=== PATIENT | female | born 1995 | race Caucasian/White ===

== ENCOUNTER 2016-08-30 13:49 | Emergency (ER) | payer SELFPAY ==
[~2016-08-30] VITALS: Ht 170.2 cm; Wt 77.1 kg
[~2016-08-30 13:49] MED LIST: ACYC400T PO; BUPR150T4 PO; CEPH-507 PO; CEPH500C PO; CIPR500T78 PO; DICY20TA57 PO; Depo Provera; METH54TA9 PO; METR500T PO; NAPR275T51 PO; NAPR550T PO; NITR-65 PO; ONDA-42 SL; ONDA8TAB13 PO; ONDAN4ODT PO; PHEN100T17 PO; PHEN200T27 PO; POLY119P PO; PRM25T PO; SULF1TAB38 PO; TRAM50TA2 PO; [UNRECOGNIZED DRUG - OTHER] IM; birth control patch
--- OUTSIDE RECORDS SUMMARY | 2016-08-30 13:55 | XMS REPORT ---
Author Author GARY RENO [facility] e[employer] Address Unknown Phone Unavailable Care Team Providers Care Edging Machine Setter Name Role Phone GARY RENO CP Unavailable Allergies No Known Allergies Problems Problem Type Condition Code Onset Dates Condition Status Problem Nonspecific abdominal pain R10.9 Active Problem Major depressive disorder, single episode F32.9 Active Problem PCOS (polycystic ovarian syndrome) E28.2 Active Problem IBS (irritable bowel syndrome) K58.9 Active Problem Herpes simplex type 2 infection B00.9 Active Problem History of PID Z87.42 Active Problem Hordeolum external H00.019 Active Medications No Known Medications Results No Known Results Summary Purpose eClinicalWorks Submission
[2016-08-30 14:12] VITALS: BP 133/69
== END 2016-08-30 15:39 | disposition left against medical advice (07) ==
LOC: EDUNIT# 13:49 → ER 13:51
DX: R11.0 Nausea (principal); Z53.21 Procedure and treatment not carried out due to patient leaving prior to being seen by health care provider
CPT/HCPCS: 99281

== ENCOUNTER 2016-11-29 23:51 | Emergency (ER) | payer SELFPAY ==
[~2016-11-29] VITALS: Ht 175.3 cm; Wt 80.3 kg
--- NOTE | 2016-11-30 00:10 | ED Lower Extremity ---
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 PT DID NOT SEEK CARE UNTIL TODAY STATES SHE HAD TO LEAVE WORK TONIGHT DUE TO PAIN HAS NOT TAKEN ANYTHING FOR PAIN PT STATES SHE HAS HAD PROBLEMS WITH THIS KNEE HURTING IF SHE STANDS TOO LONG, OR SOMETIMES IT GIVES OUT--ONGOING FOR YEARS PCP: JAYCE-MEI Allergies and Home Medications Allergies Coded Allergies: No Known Drug Allergies (Unverified , 08/30/11) Home Medications Naproxen 500 Mg Tablet, 500 MG PO BID, #20 Prescribed by: CHAO PERDUE on 11/30/16 0022 Constitutional: no symptoms reported Musculoskeletal: see HPI Skin: no symptoms reported Psychiatric/Neurological: No Symptoms Reported Past Vitsmkv-Rlcfmu-Bxnlur Hx Patient Social History Alcohol Use: Occasionally Uses Recreational Drug Use: No Smoking Status: Current Everyday Smoker Type Used: Cigarettes Recent Foreign Travel: No Contact w/Someone Who Travel: No Recent Hopitalizations: No Immunizations Up To Date Date of Influenza Vaccine: Mar 30, 2013 Seasonal Allergies Seasonal Allergies: No Surgeries HX Surgeries: Yes Surgeries: Abdominal, Adenoidectomy, Tonsillectomy Respiratory Hx Respiratory Disorders: No Cardiovascular Hx Cardiac Disorders: No Neurological Hx Neurological Disorders: No Reproductive System Hx Reproductive Disorders: No Sexually Transmitted Disease: Yes (Trichomonas and Chlamydia) HIV/AIDS: No Female Reproductive Disorders: Menstrual Problems, Ovarian Cyst Genitourinary Hx Genitourinary Disorders: No Gastrointestinal Hx Gastrointestinal Disorders: No Musculoskeletal Hx Musculoskeletal Disorders: No Endocrine Hx Endocrine Disorders: No HEENT HX ENT Disorders: No Cancer Hx Cancer: No Psychosocial Hx Psychiatric Problems: Yes Behavioral Health Disorders: Anxiety, Bipolar, Depression Integumentary HX Skin/Integumentary Disorder: No Blood Transfusions Hx Blood Disorders: No Adverse Reaction to a Blood Tr: No Family Medical History Significant Family History: No Pertinent Family Hx Physical Exam Vital Signs Vital Sign - Last 12Hours 11/29/16 23:58 Temp 98.1 Pulse 84 Resp 20 B/P (MAP) 115/65 Pulse Ox 98 O2 Delivery Room Air Capillary Refill : General Appearance: WD/WN, no apparent distress Hips: bilateral hip normal inspection Legs: bilateral leg normal inspection Knees: left knee normal inspection, right knee bone tenderness, right knee soft tissue tenderness, right knee other (TENDERNESS TO MEDIAL/ INFERIOR ASPECT OF RIGHT KNEE. NO LIGAMENT LAXITY. NO CREPITANCE OR CLICKING/ POPPING. NO SWELLING OR BRUISING OR EXTERNAL EVIDENCE OF TRAUMA. 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 II-XII nml as tested, no motor/sensory deficits, alert, normal mood/affect, oriented x 3 Skin: normal color, warm/dry Progress/Results/Core Measures Results/Orders My Orders Orders - CHAO PERDUE DO Knee, Right, 3 Views (11/30/16 00:04) Rx-Naproxen (Rx-Naprosyn) (11/30/16 00:23) Morgan Bandage (11/30/16 00:23) Vital Signs/I&O Vital Sign - Last 12Hours 11/29/16 23:58 Temp 98.1 Pulse 84 Resp 20 B/P (MAP) 115/65 Pulse Ox 98 O2 Delivery Room Air Diagnostic Imaging Comments XRAYS RIGHT KNEE--NO ACUTE PROCESS, PENDING RADIOLOGIST REVIEW Reviewed: Reviewed by Me Departure Impression Impression: Primary Impression: Right knee pain Disposition: 01 HOME, SELF-CARE Condition: Stable Departure-Patient Inst. Referrals: [facility] (PCP/Family) Primary Care Physician Patient Instructions: Knee Pain (DC) Add. Discharge Instructions: MORGAN WRAP TO KNEE NEEDED FOR COMFORT ALTERNATE ICE AND HEAT TO AREA AT 29 MINUTE INTERVALS FOLLOW UP WITH [facility] IN 2-3 DAYS FOR FURTHER CARE All discharge instructions reviewed with patient and/or family. Voiced understanding. Scripts Naproxen (Naproxen) 500 Mg Tablet 500 MG PO BID, #20 TAB Prov: CHAO PERDUE DO 11/30/16 Work/School Note: Work Release Form Date Seen in the Emergency Department: Nov 30, 2016 Restrictions: Need Release from Doctor CHAO PERDUE DO Nov 30, 2016 00:10
[2016-11-30] MEDS ORDERED: NAPR500T3 PO (00:22)
[2016-11-30] MEDS ORDERED: RX-NAPROXEN (NAPROSYN) 250 MG TAB PPK#4 PO ONE (00:43)
[2016-11-30 00:46] VITALS: BP 0/0
[2016-11-30] MEDS: RX-NAPROXEN (NAPROSYN) 250 MG TAB PPK#4 PO STA (00:46)
--- NOTE | 2016-11-30 07:29 | Diagnostic Imaging Report ---
EXAMINATION: 3 views of the right knee. INDICATION: Fall. FINDINGS: No fracture, dislocation or radiopaque foreign body. No suprapatellar effusion seen. IMPRESSION: Unremarkable exam. Dictated by: Dictated on workstation # [id number]
== END 2016-11-30 00:46 | disposition home or self-care (01) ==
LOC: EDUNIT# 23:51 → ER 23:55
DX: M25.561 Pain in right knee (principal); F17.210 Nicotine dependence, cigarettes, uncomplicated
CPT/HCPCS: 73562; 99283

== ENCOUNTER 2017-08-13 01:15 | Emergency (ER) | payer SELFPAY ==
[~2017-08-13 01:15] MED LIST changes: +NAPR500T4 PO
--- OUTSIDE RECORDS SUMMARY | 2017-08-15 13:13 | XMS REPORT ---
Author Author JOSHUA STACK [facility] Address Unknown Care Team Providers Care Photo Producer Name Role Phone JOSHUA STACK Unavailable PROBLEMS Type Condition ICD9-CM Code BEU25-UW Code Onset Dates Condition Status SNOMED Code Problem Routine health maintenance Z00.00 Active 467339951 Problem Tobacco abuse Z72.0 Active 66690330 Problem Alcohol abuse F10.10 Active 82951053 Problem Anxiety F41.9 Active 50970889 Problem Depressive disorder, not elsewhere classified F32.9 Active 08941369 Problem Absence of menstruation N91.2 Active 93100601 Problem Tobacco abuse counseling Z71.6 Active 469724103 Problem Generalized anxiety disorder F41.1 Active 81624788 Problem 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 Unknown Non Drug Allergy May, Unknown SOCIAL HISTORY No smoking Hx information available PLAN OF CARE Activity Details Follow Up prn Reason:HYGIENE VITAL SIGNS Height 66 in 2016-06-19 Blood pressure systolic 111 mmHg 2016-06-19 Blood pressure diastolic 62 mmHg 2016-06-19 MEDICATIONS No Known Medications RESULTS No Results PROCEDURES Procedure Date Ordered Related Diagnosis Body Site LTD ORAL EVALUATION - PROBLEM FOCUS Jun 19, 2016 INTRAORL-PERIAPICAL 1 FILM [id number] Jun 19, 2016 EXTRAC ERUPTED TOOTH/EXPOSED ROOT Jun 19, 2016 BITEWING - SINGLE FILM Jun 19, 2016 IMMUNIZATIONS No Known Immunizations
--- OUTSIDE RECORDS SUMMARY | 2017-08-15 13:14 | XMS REPORT ---
Author Author NATHALIA MORRIS [facility] Address [address] [place] [address] Care Team Providers Care Professor Of Criminal Justice Name Role Phone NATHALIA MORRIS Unavailable PROBLEMS Type Condition ICD9-CM Code ADT02-KS Code Onset Dates Condition Status SNOMED Code Problem Routine health maintenance Z00.00 Active 752959873 Problem Tobacco abuse Z72.0 Active 77948426 Problem Alcohol abuse F10.10 Active 16098216 Problem Anxiety F41.9 Active 72719593 Problem Depressive disorder, not elsewhere classified F32.9 Active 78091180 Problem Absence of menstruation N91.2 Active 24748121 Problem Tobacco abuse counseling Z71.6 Active 272496656 Problem Generalized anxiety disorder F41.1 Active 20492604 Problem 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 95670946 Problem Nonspecific abdominal pain R10.9 Active 477506451 Problem IBS (irritable bowel syndrome) K58.9 Active 30608639 Problem Herpes simplex type 2 infection B00.9 Active 229564356 Problem History of PID Z87.42 Active 952781141 Problem Hordeolum external H00.019 Active 3233612 Problem Major depressive disorder, single episode F32.9 Active 38610530 Problem Late menses N91.0 Active 07018811 Problem PCOS (polycystic ovarian syndrome) E28.2 Active 16073242 Problem History of drug dependence/abuse F19.21 Active 4022874 ALLERGIES No Information SOCIAL HISTORY Never Assessed PLAN OF CARE Activity Details Follow Up Next available Reason: VITAL SIGNS MEDICATIONS Unknown Medications RESULTS No Results PROCEDURES No Known procedures IMMUNIZATIONS No Known Immunizations MEDICAL (GENERAL) HISTORY Type Description Date Medical History Attention-deficit hyperactivity disorder Medical History Chlamydial infections Medical History Trichomoniasis Medical History depression Medical History bipolar disorder Medical History Anxiety disorder Medical History Methamphetamine Abuse Medical History Marijuana Dependence Surgical History Myringotomy with ventilating tube insertion Surgical History Tonsillectomy Surgical History Adenoidectomy Hospitalization History Surgery
--- OUTSIDE RECORDS SUMMARY | 2017-08-15 13:14 | XMS REPORT ---
Author Author NATHALIA MORRIS [facility] Address [address] [place] [address] Care Team Providers Care Chief Nurse Name Role Phone NATHALIA MORRIS Unavailable PROBLEMS Type Condition ICD9-CM Code VJE23-AI Code Onset Dates Condition Status SNOMED Code Problem Routine health maintenance Z00.00 Active 371397249 Problem Tobacco abuse Z72.0 Active 90250952 Problem Alcohol abuse F10.10 Active 51045772 Problem Anxiety F41.9 Active 96108446 Problem Depressive disorder, not elsewhere classified F32.9 Active 80414302 Problem Absence of menstruation N91.2 Active 12169695 Problem Tobacco abuse counseling Z71.6 Active 722466475 Problem Generalized anxiety disorder F41.1 Active 80884308 Problem 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 66819689 Problem Nonspecific abdominal pain R10.9 Active 557380106 Problem IBS (irritable bowel syndrome) K58.9 Active 46598884 Problem Herpes simplex type 2 infection B00.9 Active 521423362 Problem History of PID Z87.42 Active 708667459 Problem Hordeolum external H00.019 Active 6996269 Problem Major depressive disorder, single episode F32.9 Active 15869248 Problem Late menses N91.0 Active 31708376 Problem PCOS (polycystic ovarian syndrome) E28.2 Active 35370316 Problem History of drug dependence/abuse F19.21 Active 9428596 ALLERGIES No Known Allergies SOCIAL HISTORY No smoking Hx information available PLAN OF CARE Activity Details Follow Up 2 Weeks Reason:Depression, anxiety, drug use VITAL SIGNS MEDICATIONS No Known Medications RESULTS No Results PROCEDURES Procedure Date Ordered Related Diagnosis Body Site Psych diagnostic evaluation, new patient Jul 19, 2016 IMMUNIZATIONS No Known Immunizations
--- OUTSIDE RECORDS SUMMARY | 2017-08-15 13:14 | XMS REPORT ---
Author Author JHOANA KRAUS [facility] Address [address] [place] [address] Care Team Providers Care Aircraft Maintenance Manager Name Role Phone JHOANA KRAUS Unavailable PROBLEMS Type Condition ICD9-CM Code EUY23-SY Code Onset Dates Condition Status SNOMED Code Problem Routine health maintenance Z00.00 Active 349182346 Problem Tobacco abuse Z72.0 Active 69262308 Problem Alcohol abuse F10.10 Active 62530588 Problem Anxiety F41.9 Active 34155763 Problem Depressive disorder, not elsewhere classified F32.9 Active 24758374 Problem Absence of menstruation N91.2 Active 60609981 Problem Tobacco abuse counseling Z71.6 Active 610621618 Problem Generalized anxiety disorder F41.1 Active 70368076 Problem 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 48940086 Problem Nonspecific abdominal pain R10.9 Active 813512462 Problem IBS (irritable bowel syndrome) K58.9 Active 39859244 Problem Herpes simplex type 2 infection B00.9 Active 537510727 Problem History of PID Z87.42 Active 034186995 Problem Hordeolum external H00.019 Active 4272703 Problem Major depressive disorder, single episode F32.9 Active 04947656 Problem Late menses N91.0 Active 91348982 Problem PCOS (polycystic ovarian syndrome) E28.2 Active 02193741 Problem History of drug dependence/abuse F19.21 Active 1626971 ALLERGIES No Known Allergies SOCIAL HISTORY Never Assessed PLAN OF CARE Activity Details Follow Up Regular appt Reason: VITAL SIGNS Height 66 in 2016-11-06 Weight 174 lbs 2016-11-06 Temperature 98.0 degrees Fahrenheit 2016-11-06 Heart Rate 80 bpm 2016-11-06 Respiratory Rate 20 2016-11-06 BMI 28.08 kg/m2 2016-11-06 Blood pressure systolic 122 mmHg 2016-11-06 Blood pressure diastolic 70 mmHg 2016-11-06 MEDICATIONS Medication Instructions Dosage Frequency Start Date End Date Duration Status Bactrim DS 800-160 MG Orally Twice a day 1 tablet 12h October,October 07 days Active RESULTS Name Result Date Reference Range TEST, URINE (IN HOUSE) RESULTS Negative Lot # [id number] Control + Exp date 01/28/2018 UA LONG DIP (IN HOUSE) Lot # [id number] Exp date 09/28/2017 Clarity Cloudy Color yellow Odor none GLU Negative ARCHANA Negative KET Negative SG 1.025 BLO Negative pH 7.0 Protein Negative URO 0.2 NIT POSITIVE YUE 1+ Lot # Exp date PROCEDURES Procedure Date Ordered Result Body Site URINALYSIS, AUTO, W/O SCOPE November 06, 2016 URINE TEST November 06, 2016 IMMUNIZATIONS No Known Immunizations MEDICAL (GENERAL) HISTORY [...]
--- OUTSIDE RECORDS SUMMARY | 2017-08-15 13:14 | XMS REPORT ---
Author Author NACHOYOBANY Organization [facility] Address [address] [place] [address] Care Team Providers Care Inspector Salvage Name Role Phone NACHOSHIKHAYOBANY Unavailable PROBLEMS Type Condition ICD9-CM Code QYB30-WX Code Onset Dates Condition Status SNOMED Code Problem Routine health maintenance Z00.00 Active 492916521 Problem Tobacco abuse Z72.0 Active 13864137 Problem Alcohol abuse F10.10 Active 52431998 Problem Anxiety F41.9 Active 43330628 Problem Depressive disorder, not elsewhere classified F32.9 Active 21326549 Problem Absence of menstruation N91.2 Active 99734198 Problem Tobacco abuse counseling Z71.6 Active 827551202 Problem Generalized anxiety disorder F41.1 Active 10596033 Problem 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 20737748 Problem Nonspecific abdominal pain R10.9 Active 997705598 Problem IBS (irritable bowel syndrome) K58.9 Active 66185678 Problem Herpes simplex type 2 infection B00.9 Active 027799986 Problem History of PID Z87.42 Active 283132198 Problem Hordeolum external H00.019 Active 4340771 Problem Major depressive disorder, single episode F32.9 Active 20616491 Problem Late menses N91.0 Active 76857964 Problem PCOS (polycystic ovarian syndrome) E28.2 Active 35359811 Problem History of drug dependence/abuse F19.21 Active 5938664 ALLERGIES No Known Allergies SOCIAL HISTORY Never Assessed PLAN OF CARE Activity Details Follow Up prn Reason: VITAL SIGNS Height 66 in 2016-08-31 Weight 168.3 lbs 2016-08-31 Temperature 98 degrees Fahrenheit 2016-08-31 Heart Rate 80 bpm 2016-08-31 Respiratory Rate 16 2016-08-31 BMI 27.16 kg/m2 2016-08-31 Blood pressure systolic 110 mmHg 2016-08-31 Blood pressure diastolic 60 mmHg 2016-08-31 MEDICATIONS Medication Instructions Dosage Frequency Start Date End Date Duration Status Diflucan 150 MG Orally one time 1 tablet Aug, 1 dose Active Zantac 150 MG Orally Once a day 1 tablet at bedtime 24h Active RESULTS Name Result Date Reference Range TEST, URINE (IN HOUSE) 2016-08-31 RESULTS negative Lot # [id number] Control + Exp date 09/2017 UA LONG DIP (IN HOUSE) 2016-08-31 Lot # [id number] Exp date 07/2017 Clarity clear Color dark yellow Odor no GLU neg ARCHANA neg KET trace SG 1.025 BLO neg pH 5.5 Protein trace URO 0.2 NIT neg YUE trace Lot # Exp date CULTURE, GENITAL 2016-08-31 Genital Culture, Routine Final report Result 1 GC/CHLAM PROBE (STATE) 2016-08-31 CHLAMYDIA negative GC negative PROCEDURES Procedure Date Ordered Result Body Site URINALYSIS, AUTO, W/O SCOPE August 31, 2016 URINE TEST August 31, 2016 LOPES VAG, DNA, DIR PROBE August 31, 2016 TRICHOMONAS ASSAY W/OPTIC August 31, 2016 CULTURE, BACTERIA, OTHER August 31, 2016 No Charge August 31, 2016 IMMUNIZATIONS No Known Immunizations MEDICAL (GENERAL) [...]
--- OUTSIDE RECORDS SUMMARY | 2017-08-15 13:14 | XMS REPORT ---
Author Author RHONDA COLEMAN Organization [facility] Address [address] [place] [address] Care Team Providers Care Driver License Reviewing Officer Name Role Phone RHONDA COLEMAN Unavailable PROBLEMS Type Condition ICD9-CM Code CTG35-RL Code Onset Dates Condition Status SNOMED Code Problem Routine health maintenance Z00.00 Active 155829164 Problem Tobacco abuse Z72.0 Active 73556623 Problem Alcohol abuse F10.10 Active 71619287 Problem Anxiety F41.9 Active 87323375 Problem Depressive disorder, not elsewhere classified F32.9 Active 91845799 Problem Absence of menstruation N91.2 Active 68835657 Problem Tobacco abuse counseling Z71.6 Active 773575815 Problem Generalized anxiety disorder F41.1 Active 34775309 Problem 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 19035409 Problem Nonspecific abdominal pain R10.9 Active 736886578 Problem IBS (irritable bowel syndrome) K58.9 Active 15888973 Problem Herpes simplex type 2 infection B00.9 Active 688455219 Problem History of PID Z87.42 Active 155965318 Problem Hordeolum external H00.019 Active 4184453 Problem Major depressive disorder, single episode F32.9 Active 14160424 Problem Late menses N91.0 Active 17361294 Problem PCOS (polycystic ovarian syndrome) E28.2 Active 07788703 Problem History of drug dependence/abuse F19.21 Active 9292231 ALLERGIES Unknown Allergies SOCIAL HISTORY No smoking Hx information available PLAN OF CARE VITAL SIGNS MEDICATIONS Unknown Medications RESULTS No Results PROCEDURES No Known procedures IMMUNIZATIONS No Known Immunizations
--- OUTSIDE RECORDS SUMMARY | 2017-08-15 13:17 | XMS REPORT | Continuity of Care Document ---
Author Author Formerly [facility] Address Unknown Phone Unavailable Allergies Active Description Code Type Severity Reaction Onset Reported/Identified Relationship to Patient Clinical Status Yes No Known Drug Allergies [id number] Drug Allergy Unknown N/A 08/30/2011 Medications There is no data. Problems Date Dx Coded Attending Type Code Diagnosis Diagnosed By 02/23/2008 V03.89 Meningococcal , Other Specified Single Bacterial Disease 02/23/2008 V05.3 Hepatitis Viral/all 02/23/2008 V06.5 Dt, Tetanus- diphtheria [td] 02/23/2008 V20.2 WELL CHILD, ROUTINE 02/23/2008 V58.69 MEDICATION HIGH RISK 02/23/2008 V03.89 Meningococcal , Other Specified Single Bacterial Disease 02/23/2008 V05.3 Hepatitis Viral/all 02/23/2008 V06.5 Dt, Tetanus- diphtheria [td] 02/23/2008 V20.2 WELL CHILD, ROUTINE 02/23/2008 V58.69 MEDICATION HIGH RISK 02/23/2008 V03.89 Meningococcal , Other Specified Single Bacterial Disease 02/23/2008 V05.3 Hepatitis Viral/all 02/23/2008 V06.5 Dt, Tetanus- diphtheria [td] 02/23/2008 V20.2 WELL CHILD, ROUTINE 02/23/2008 V58.69 MEDICATION HIGH RISK 02/23/2008 V03.89 Meningococcal , Other Specified Single Bacterial Disease 02/23/2008 V05.3 Hepatitis Viral/all 02/23/2008 V06.5 Dt, Tetanus- diphtheria [td] 02/23/2008 V20.2 WELL CHILD, ROUTINE 02/23/2008 V58.69 MEDICATION HIGH RISK 02/23/2008 GARY RENO MD V03.89 Meningococcal, Other Specified Single Bacterial Disease 02/23/2008 GARY RENO MD V05.3 Hepatitis Viral/all 02/23/2008 GARY RENO MD V06.5 Dt, Tetanus-diphtheria [td] 02/23/2008 SHADIA BECKER, GARY V20.2 WELL CHILD, ROUTINE 02/23/2008 SHADIA BECKER, GARY V58.69 MEDICATION HIGH RISK 02/23/2008 V03.89 Meningococcal , Other Specified Single Bacterial Disease 02/23/2008 V05.3 Hepatitis Viral/all 02/23/2008 V06.5 Dt, Tetanus- diphtheria [td] 02/23/2008 V20.2 WELL CHILD, ROUTINE 02/23/2008 V58.69 MEDICATION HIGH RISK 02/23/2008 LUEVANO DO MIKE K V03.89 Meningococcal, Other Specified Single Bacterial Disease 02/23/2008 LUEVANO DO MIKE K V05.3 Hepatitis Viral/all 02/23/2008 LUEVANO DO MIKE K V06.5 Dt, Tetanus-diphtheria [td] 02/23/2008 LUEVANO DO MIKE K V20.2 WELL CHILD, ROUTINE 02/23/2008 LUEVANO SHAWN GARSIAA K V58.69 MEDICATION HIGH RISK 02/23/2008 V03.89 Meningococcal , Other Specified Single Bacterial Disease 02/23/2008 V05.3 Hepatitis Viral/all 02/23/2008 V06.5 Dt, Tetanus- diphtheria [td] 02/23/2008 V20.2 WELL CHILD, ROUTINE 02/23/2008 V58.69 MEDICATION HIGH RISK 02/23/2008 V03.89 Meningococcal , Other Specified Single Bacterial Disease 02/23/2008 V05.3 Hepatitis Viral/all 02/23/2008 V06.5 Dt, Tetanus- diphtheria [td] 02/23/2008 V20.2 WELL CHILD, ROUTINE 02/23/2008 V58.69 MEDICATION HIGH RISK 02/23/2008 V03.89 Meningococcal , Other Specified Single Bacterial Disease 02/23/2008 V05.3 Hepatitis Viral/all 02/23/2008 V06.5 Dt, Tetanus- diphtheria [td] 02/23/2008 V20.2 WELL CHILD, ROUTINE 02/23/2008 V58.69 MEDICATION HIGH RISK 02/23/2008 SHADIA BECKER, GARY V03.89 Meningococcal, Other Specified Single Bacterial Disease 02/23/2008 SHADIA BECKER, GARY V05.3 Hepatitis Viral/all 02/23/2008 SHADIA BECKER, GARY V06.5 Dt, Tetanus-diphtheria [td] 02/23/2008 SHADIA BECKER, GARY V20.2 WELL CHILD, ROUTINE 02/23/2008 SHADIA BECKER, GARY V58.69 MEDICATION HIGH RISK 02/23/2008 REFUGIO MEDINA, LIDIA A V03.89 Meningococcal, Other Specified Single Bacterial Disease 02/23/2008 REFUGIO COMMERCIAL LOAN ANALYST, LIDIA A V05.3 Hepatitis Viral/all 02/23/2008 REFUGIO APRN, LIDIA A V06.5 Dt, Tetanus-diphtheria [td] 02/23/2008 REFUGIO COMMERCIAL LOAN ANALYST, LIDIA A V20.2 WELL CHILD, ROUTINE 02/23/2008 REFUGIO APRN, LIDIA A V58.69 MEDICATION HIGH RISK 02/23/2008 REFUGIO APRN, LIDIA A V03.89 Meningococcal, Other Specified Single Bacterial Disease 02/23/2008 REFUGIO APRN, LIDIA A V05.3 Hepatitis Viral/all 02/23/2008 REFUGIO MEDINA, LIDIA A V06.5 Dt, Tetanus-diphtheria [td] 02/23/2008 REFUGIO APRN, LIDIA A V20.2 WELL CHILD, ROUTINE 02/23/2008 REFUGIO APRN, LIDIA A V58.69 MEDICATION HIGH RISK 02/23/2008 REFUGIO MEDINA, LIDIA A V03.89 Meningococcal, Other Specified Single Bacterial Disease 02/23/2008 REFUGIO MEDINA, LIDIA A V05.3 Hepatitis Viral/all 02/23/2008 REFUGIO MEDINA, LIDIA A V06.5 Dt, Tetanus-diphtheria [td] 02/23/2008 REFUGIO APRN, LIDIA A V20.2 WELL CHILD, ROUTINE 02/23/2008 REFUGIO APRN, LIDIA A V58.69 MEDICATION HIGH RISK 02/23/2008 REFUGIO APRN, LIDIA A V03.89 Meningococcal, Other Specified Single Bacterial Disease 02/23/2008 REFUGIO APRN, LIDIA A V05.3 Hepatitis Viral/all 02/23/2008 REFUGIO APRN, LIDIA A V06.5 Dt, Tetanus-diphtheria [td] 02/23/2008 REFUGIO APRN, LIDIA A V20.2 WELL CHILD, ROUTINE 02/23/2008 REFUGIO COMMERCIAL LOAN ANALYST, LIDIA A V58.69 MEDICATION HIGH RISK 02/23/2008 REFUGIO COMMERCIAL LOAN ANALYST, LIDIA A V03.89 Meningococcal, Other Specified Single Bacterial Disease 02/23/2008 REFUGIO COMMERCIAL LOAN ANALYST, LIDIA A V05.3 Hepatitis Viral/all 02/23/2008 REFUGIO COMMERCIAL LOAN ANALYST, LIDIA A V06.5 Dt, Tetanus-diphtheria [td] 02/23/2008 REFUGIO COMMERCIAL LOAN ANALYST, LIDIA A V20.2 WELL CHILD, ROUTINE 02/23/2008 REFUGIO COMMERCIAL LOAN ANALYST, LIDIA A V58.69 MEDICATION HIGH RISK 02/23/2008 REFUGIO COMMERCIAL LOAN ANALYST, LIDIA A V03.89 Meningococcal, Other Specified Single Bacterial Disease 02/23/2008 REFUGIO COMMERCIAL LOAN ANALYST, LIDIA A V05.3 Hepatitis Viral/all 02/23/2008 REFUGIO COMMERCIAL LOAN ANALYST, LIDIA A V06.5 Dt, Tetanus-diphtheria [td] 02/23/2008 REFUGIO COMMERCIAL LOAN ANALYST, LIDIA A V20.2 WELL CHILD, ROUTINE 02/23/2008 REFUGIO COMMERCIAL LOAN ANALYST, LIDIA A V58.69 MEDICATION HIGH RISK 02/23/2008 AZAEL BECKER, RAYMUNDO V03.89 Meningococcal, Other Specified Single Bacterial Disease 02/23/2008 AZAEL BECKER, RAYMUNDO V05.3 Hepatitis Viral/all 02/23/2008 AZAEL BECKER, RAYMUNDO V06.5 Dt, Tetanus-diphtheria [td] 02/23/2008 AZAEL BECKER, RAYMUNDO V20.2 WELL CHILD, ROUTINE 02/23/2008 AZAEL BECKER, RAYMUNDO V58.69 MEDICATION HIGH RISK 02/23/2008 SHAWN LUEVANO DOA Vero V03.89 Meningococcal, Other Specified Single Bacterial Disease 02/23/2008 MIKE LUEVANO DO K V05.3 Hepatitis Viral/all 02/23/2008 SHAWN LUEVANO DOA Vero V06.5 Dt, Tetanus-diphtheria [td] 02/23/2008 MIKE LUEVANO DO V20.2 WELL CHILD, ROUTINE 02/23/2008 SHAWN LUEVANO DOA K V58.69 MEDICATION HIGH RISK 02/23/2008 REFUGIO COMMERCIAL LOAN ANALYST, LIDIA A V03.89 Meningococcal, Other Specified Single Bacterial Disease 02/23/2008 REFUGIO COMMERCIAL LOAN ANALYST, LIDIA A V05.3 Hepatitis Viral/all 02/23/2008 REFUGIO COMMERCIAL LOAN ANALYST, LIDIA A V06.5 Dt, Tetanus-diphtheria [td] 02/23/2008 REFUGIO COMMERCIAL LOAN ANALYST, LIDIA A V20.2 WELL CHILD, ROUTINE 02/23/2008 REFUGIO TOAdy LIDIA A V58.69 MEDICATION HIGH RISK 02/23/2008 LUEVANO DO MIKE K V03.89 Meningococcal, Other Specified Single Bacterial Disease 02/23/2008 LUEVANO DO MIKE K V05.3 Hepatitis Viral/all 02/23/2008 LUEVANO DO MIKE K V06.5 Dt, Tetanus-diphtheria [td] 02/23/2008 LUEVANO DO MIKE K V20.2 WELL CHILD, ROUTINE 02/23/2008 SHAWN LUEVANO DOA K V58.69 MEDICATION HIGH RISK 02/23/2008 LUEVANO DO MIKE K V03.89 Meningococcal, Other Specified Single Bacterial Disease 02/23/2008 LUEVANO DO MIKE K V05.3 Hepatitis Viral/all 02/23/2008 LUEVANO DO MIKE K V06.5 Dt, Tetanus-diphtheria [td] 02/23/2008 LUEVANO SHAWN GARSIAA K V20.2 WELL CHILD, ROUTINE 02/23/2008 LUEVANO DO MIKE K V58.69 MEDICATION HIGH RISK 02/23/2008 REFUGIO TON, LIDIA A V03.89 Meningococcal, Other Specified Single Bacterial Disease 02/23/2008 REFUGIO COMMERCIAL LOAN ANALYST, LIDIA A V05.3 Hepatitis Viral/all 02/23/2008 REFUGIO COMMERCIAL LOAN ANALYST, LIDIA A V06.5 Dt, Tetanus-diphtheria [td] 02/23/2008 REFUGIO COMMERCIAL LOAN ANALYST, LIDIA A V20.2 WELL CHILD, ROUTINE 02/23/2008 REFUGIO TON, LIDIA A V58.69 MEDICATION HIGH RISK 04/30/2008 780.60 Fever, Unspecified 04/30/2008 780.79 Malaise And Fatigue 04/30/2008 780.60 Fever, Unspecified 04/30/2008 780.79 Malaise And Fatigue 04/30/2008 780.60 Fever, Unspecified 04/30/2008 780.79 Malaise And Fatigue 04/30/2008 780.60 Fever, Unspecified 04/30/2008 780.79 Malaise And Fatigue 04/30/2008 GARY RENO MD 780.60 Fever, Unspecified 04/30/2008 GARY RENO MD 780.79 Malaise And Fatigue 04/30/2008 780.60 Fever, Unspecified 04/30/2008 780.79 Malaise And Fatigue 04/30/2008 LUEVANO DO MIKE K 780.60 Fever, Unspecified 04/30/2008 LUEVANO DO, MIKE K 780.79 Malaise And Fatigue 04/30/2008 780.60 Fever, Unspecified 04/30/2008 780.79 Malaise And Fatigue 04/30/2008 780.60 Fever, Unspecified 04/30/2008 780.79 Malaise And Fatigue 04/30/2008 780.60 Fever, Unspecified 04/30/2008 780.79 Malaise And Fatigue 04/30/2008 GARY RENO MD 780.60 Fever, Unspecified 04/30/2008 GARY RENO MD 780.79 Malaise And Fatigue 04/30/2008 REFGUIO COMMERCIAL LOAN ANALYST, LIDIA A 780.60 Fever, Unspecified 04/30/2008 REFUGIO COMMERCIAL LOAN ANALYST, LIDIA A 780.79 Malaise And Fatigue 04/30/2008 REFUGIO COMMERCIAL LOAN ANALYST, LIDIA A 780.60 Fever, Unspecified 04/30/2008 REFUGIO COMMERCIAL LOAN ANALYST, LIDIA A 780.79 Malaise And Fatigue 04/30/2008 REFUGIO COMMERCIAL LOAN ANALYST, LIDIA A 780.60 Fever, Unspecified 04/30/2008 REFUGIO COMMERCIAL LOAN ANALYST, LIDIA A 780.79 Malaise And Fatigue 04/30/2008 REFUGIO COMMERCIAL LOAN ANALYST, LIDIA A 780.60 Fever, Unspecified 04/30/2008 REFUGIO COMMERCIAL LOAN ANALYST, LIDIA A 780.79 Malaise And Fatigue 04/30/2008 REFUGIO COMMERCIAL LOAN ANALYST, LIDIA A 780.60 Fever, Unspecified 04/30/2008 REFUGIO COMMERCIAL LOAN ANALYST, LIDIA A 780.79 Malaise And Fatigue 04/30/2008 REFUGIO COMMERCIAL LOAN ANALYST, LIDIA A 780.60 Fever, Unspecified 04/30/2008 REFUGIO COMMERCIAL LOAN ANALYST, LIDIA A 780.79 Malaise And Fatigue 04/30/2008 RAYMUNDO ADDISON MD 780.60 Fever, Unspecified 04/30/2008 AZAEL MD, RAYMUNDO 780.79 Malaise And Fatigue 04/30/2008 LUEVANO DO, MIKE K 780.60 Fever, Unspecified 04/30/2008 LUEVANO DO, MIKE K 780.79 Malaise And Fatigue 04/30/2008 REFUGIO COMMERCIAL LOAN ANALYST, LIDIA A 780.60 Fever, Unspecified 04/30/2008 REFUGIO COMMERCIAL LOAN ANALYST, LIDIA A 780.79 Malaise And Fatigue 04/30/2008 LUEVANO DO, MIKE K 780.60 Fever, Unspecified 04/30/2008 LUEVANO DO, MIKE K 780.79 Malaise And Fatigue 04/30/2008 LUEVANO DO, MIKE K 780.60 Fever, Unspecified 04/30/2008 LUEVANO DO, MIKE K 780.79 Malaise And Fatigue 04/30/2008 REFUGIO COMMERCIAL LOAN ANALYST, LIDIA A 780.60 Fever, Unspecified 04/30/2008 REFUGIO COMMERCIAL LOAN ANALYST, LIDIA A 780.79 Malaise And Fatigue 08/04/2008 132.0 Pediculus Capitis (head Louse) 08/04/2008 382.4 Unspecified Suppurative Otitis Media 08/04/2008 132.0 Pediculus Capitis (head Louse) 08/04/2008 382.4 Unspecified Suppurative Otitis Media 08/04/2008 132.0 Pediculus Capitis (head Louse) 08/04/2008 382.4 Unspecified Suppurative Otitis Media 08/04/2008 132.0 Pediculus Capitis (head Louse) 08/04/2008 382.4 Unspecified Suppurative Otitis Media 08/04/2008 GARY RENO MD 132.0 Pediculus Capitis (head Louse) 08/04/2008 GARY RENO MD 382.4 Unspecified Suppurative Otitis Media 08/04/2008 132.0 Pediculus Capitis (head Louse) 08/04/2008 382.4 Unspecified Suppurative Otitis Media 08/04/2008 LUEVANO DO, MIKE K 132.0 Pediculus Capitis (head Louse) 08/04/2008 LUEVANO DO, MIKE K 382.4 Unspecified Suppurative Otitis Media 08/04/2008 132.0 Pediculus Capitis (head Louse) 08/04/2008 382.4 Unspecified Suppurative Otitis Media 08/04/2008 132.0 Pediculus Capitis (head Louse) 08/04/2008 382.4 Unspecified Suppurative Otitis Media 08/04/2008 132.0 Pediculus Capitis (head Louse) 08/04/2008 382.4 Unspecified Suppurative Otitis Media 08/04/2008 SHADIA BECKER, GARY 132.0 Pediculus Capitis (head Louse) 08/04/2008 SHADIA BECKER, GARY 382.4 Unspecified Suppurative Otitis Media 08/04/2008 REFUGIO COMMERCIAL LOAN ANALYST, LIDIA A 132.0 Pediculus Capitis (head Louse) 08/04/2008 REFUGIO COMMERCIAL LOAN ANALYST, LIDIA A 382.4 Unspecified Suppurative Otitis Media 08/04/2008 REFUGIO COMMERCIAL LOAN ANALYST, LIDIA A 132.0 Pediculus Capitis (head Louse) 08/04/2008 REFUGIO COMMERCIAL LOAN ANALYST, LIDIA A 382.4 Unspecified Suppurative Otitis Media 08/04/2008 REFUGIO COMMERCIAL LOAN ANALYST, LIDIA A 132.0 Pediculus Capitis (head Louse) 08/04/2008 REFUGIO COMMERCIAL LOAN ANALYST, LIDIA A 382.4 Unspecified Suppurative Otitis Media 08/04/2008 REFUGIO COMMERCIAL LOAN ANALYST, LIDIA A 132.0 Pediculus Capitis (head Louse) 08/04/2008 REFUGIO COMMERCIAL LOAN ANALYST, LIDIA A 382.4 Unspecified Suppurative Otitis Media 08/04/2008 REFUGIO COMMERCIAL LOAN ANALYST, LIDIA A 132.0 Pediculus Capitis (head Louse) 08/04/2008 REFUGIO COMMERCIAL LOAN ANALYST, LIDIA A 382.4 Unspecified Suppurative Otitis Media 08/04/2008 REFUGIO COMMERCIAL LOAN ANALYST, LIDIA A 132.0 Pediculus Capitis (head Louse) 08/04/2008 REFUGIO COMMERCIAL LOAN ANALYST, LIDIA A 382.4 Unspecified Suppurative Otitis Media 08/04/2008 RAYMUNDO ADDISON MD 132.0 Pediculus Capitis (head Louse) 08/04/2008 RAYMUNDO ADDISON MD 382.4 Unspecified Suppurative Otitis Media 08/04/2008 MIKE LUEVANO DO 132.0 Pediculus Capitis (head Louse) 08/04/2008 MIKE LUEVANO DO 382.4 Unspecified Suppurative Otitis Media 08/04/2008 REFUGIO MEDINA, LIDIA A 132.0 Pediculus Capitis (head Louse) 08/04/2008 REFUGIO COMMERCIAL LOAN ANALYST, LIDIA A 382.4 Unspecified Suppurative Otitis Media 08/04/2008 MIKE LUEVANO DO K 132.0 Pediculus Capitis (head Louse) 08/04/2008 MIKE LUEVANO DO K 382.4 Unspecified Suppurative Otitis Media 08/04/2008 MIKE LUEVANO DO K 132.0 Pediculus Capitis (head Louse) 08/04/2008 MIKE LUEVANO DO K 382.4 Unspecified Suppurative Otitis Media 08/04/2008 REFUGIO COMMERCIAL LOAN ANALYST, LIDIA A 132.0 Pediculus Capitis (head Louse) 08/04/2008 REFUGIO COMMERCIAL LOAN ANALYST, LIDIA A 382.4 Unspecified Suppurative Otitis Media 12/02/2008 300.4 Mo Dysthymic Disorder 12/02/2008 300.4 Mo Dysthymic Disorder 12/02/2008 300.4 Mo Dysthymic Disorder 12/02/2008 300.4 Mo Dysthymic Disorder 12/02/2008 GARY RENO MD 300.4 Mo Dysthymic Disorder 12/02/2008 300.4 Mo Dysthymic Disorder 12/02/2008 MIKE LUEVANO DO 300.4 Mo Dysthymic Disorder 12/02/2008 300.4 Mo Dysthymic Disorder 12/02/2008 300.4 Mo Dysthymic Disorder 12/02/2008 300.4 Mo Dysthymic Disorder 12/02/2008 GARY RENO MD 300.4 Mo Dysthymic Disorder 12/02/2008 REFUGIO COMMERCIAL LOAN ANALYST, LIDIA A 300.4 Mo Dysthymic Disorder 12/02/2008 REFUGIO COMMERCIAL LOAN ANALYST, LIDIA A 300.4 Mo Dysthymic Disorder 12/02/2008 REFUGIO COMMERCIAL LOAN ANALYST, LIDIA A 300.4 Mo Dysthymic Disorder 12/02/2008 REFUGIO COMMERCIAL LOAN ANALYST, LIDIA A 300.4 Mo Dysthymic Disorder 12/02/2008 REFUGIO COMMERCIAL LOAN ANALYST, LIDIA A 300.4 Mo Dysthymic Disorder 12/02/2008 REFUGIO COMMERCIAL LOAN ANALYST, LIDIA A 300.4 Mo Dysthymic Disorder 12/02/2008 RAYMUNDO ADDISON MD 300.4 Mo Dysthymic Disorder 12/02/2008 MIKE LUEVANO DO 300.4 Mo Dysthymic Disorder 12/02/2008 LIDIA HUFF APRN A 300.4 Mo Dysthymic Disorder 12/02/2008 MIKE LUEVANO DO 300.4 Mo Dysthymic Disorder 12/02/2008 MIKE LUEVANO DO 300.4 Mo Dysthymic Disorder 12/02/2008 JOSEFINA HUFF APRNIDI A 300.4 Mo Dysthymic Disorder 04/07/2009 079.99 Unspecified Viral Infection In Conditions Classified Elsewhere And Of Unspecified Site 04/07/2009 079.99 Unspecified Viral Infection In Conditions Classified Elsewhere And Of Unspecified Site 04/07/2009 079.99 Unspecified Viral Infection In Conditions Classified Elsewhere And Of Unspecified Site 04/07/2009 079.99 Unspecified Viral Infection In Conditions Classified Elsewhere And Of Unspecified Site 04/07/2009 GARY RENO MD 079.99 Unspecified Viral Infection In Conditions Classified Elsewhere And Of Unspecified Site 04/07/2009 079.99 Unspecified Viral Infection In Conditions Classified Elsewhere And Of Unspecified Site 04/07/2009 MIKE LUEVANO DO 079.99 Unspecified Viral Infection In Conditions Classified Elsewhere And Of Unspecified Site 04/07/2009 079.99 Unspecified Viral Infection In Conditions Classified Elsewhere And Of Unspecified Site 04/07/2009 079.99 Unspecified Viral Infection In Conditions Classified Elsewhere And Of Unspecified Site 04/07/2009 079.99 Unspecified Viral Infection In Conditions Classified Elsewhere And Of Unspecified Site 04/07/2009 GARY RENO MD 079.99 Unspecified Viral Infection In Conditions Classified Elsewhere And Of Unspecified Site 04/07/2009 JOSEFINA HUFF APRNIDI A 079.99 Unspecified Viral Infection In Conditions Classified Elsewhere And Of Unspecified Site 04/07/2009 REFUGIO MEDINA LIDIA A 079.99 Unspecified Viral Infection In Conditions Classified Elsewhere And Of Unspecified Site 04/07/2009 JOSEFINA HUFF APRNIDI A 079.99 Unspecified Viral Infection In Conditions Classified Elsewhere And Of Unspecified Site 04/07/2009 REFUGIO MEDINA, LIDIA A 079.99 Unspecified Viral Infection In Conditions Classified Elsewhere And Of Unspecified Site 04/07/2009 JOSEFINA HUFF APRNIDI A 079.99 Unspecified Viral Infection In Conditions Classified Elsewhere And Of Unspecified Site 04/07/2009 REFUGIO COMMERCIAL LOAN ANALYST, LIDIA A 079.99 Unspecified Viral Infection In Conditions Classified Elsewhere And Of Unspecified Site 04/07/2009 RAYMUNDO ADDISON MD 079.99 Unspecified Viral Infection In Conditions Classified Elsewhere And Of Unspecified Site 04/07/2009 MIKE LUEVANO DO 079.99 Unspecified Viral Infection In Conditions Classified Elsewhere And Of Unspecified Site 04/07/2009 REFUIGO COMMERCIAL LOAN ANALYST, LIDIA A 079.99 Unspecified Viral Infection In Conditions Classified Elsewhere And Of Unspecified Site 04/07/2009 MIKE LUEVANO DO K 079.99 Unspecified Viral Infection In Conditions Classified Elsewhere And Of Unspecified Site 04/07/2009 MIKE LUEVANO DO K 079.99 Unspecified Viral Infection In Conditions Classified Elsewhere And Of Unspecified Site 04/07/2009 REFUGIO COMMERCIAL LOAN ANALYST, LIDIA A 079.99 Unspecified Viral Infection In Conditions Classified Elsewhere And Of Unspecified Site 05/02/2009 789.00 Abdominal Pain 05/02/2009 789.00 Abdominal Pain 05/02/2009 789.00 Abdominal Pain 05/02/2009 789.00 Abdominal Pain 05/02/2009 GARY RENO MD 789.00 Abdominal Pain 05/02/2009 789.00 Abdominal Pain 05/02/2009 MIKE LUEVANO DO 789.00 Abdominal Pain 05/02/2009 789.00 Abdominal Pain 05/02/2009 789.00 Abdominal Pain 05/02/2009 789.00 Abdominal Pain 05/02/2009 GARY RENO MD 789.00 Abdominal Pain 05/02/2009 REFUGIO COMMERCIAL LOAN ANALYST, LIDIA A 789.00 Abdominal Pain 05/02/2009 REFUGIO COMMERCIAL LOAN ANALYST, LIDIA A 789.00 Abdominal Pain 05/02/2009 REFUGIO COMMERCIAL LOAN ANALYST, LIDIA A 789.00 Abdominal Pain 05/02/2009 REFUGIO COMMERCIAL LOAN ANALYST, LIDIA A 789.00 Abdominal Pain 05/02/2009 REFUGIO COMMERCIAL LOAN ANALYST, LIDIA A 789.00 Abdominal Pain 05/02/2009 REFUGIO COMMERCIAL LOAN ANALYST, LIDIA A 789.00 Abdominal Pain 05/02/2009 RAYMUNDO ADDISON MD 789.00 Abdominal Pain 05/02/2009 MIKE LUEVANO DO 789.00 Abdominal Pain 05/02/2009 LIDIA HUFF APRN A 789.00 Abdominal Pain 05/02/2009 CHLOÉ GARSIAMIKE K 789.00 Abdominal Pain 05/02/2009 CHLOÉ GARSIA MIKE K 789.00 Abdominal Pain 05/02/2009 LIDIA HUFF APRN A 789.00 Abdominal Pain 06/02/2009 373.11 Stye ( hordeolum Externum) 06/02/2009 682.9 Cellulitis 06/02/2009 373.11 Stye ( hordeolum Externum) 06/02/2009 682.9 Cellulitis 06/02/2009 373.11 Stye ( hordeolum Externum) 06/02/2009 682.9 Cellulitis 06/02/2009 373.11 Stye ( hordeolum Externum) 06/02/2009 682.9 Cellulitis 06/02/2009 GARY RENO MD 373.11 Stye (hordeolum Externum) 06/02/2009 GARY RENO MD 682.9 Cellulitis 06/02/2009 373.11 Stye ( hordeolum Externum) 06/02/2009 682.9 Cellulitis 06/02/2009 LUEVANO MIKE K 373.11 Stye (hordeolum Externum) 06/02/2009 CHLOÉ GARSIAMIKE K 682.9 Cellulitis 06/02/2009 373.11 Stye ( hordeolum Externum) 06/02/2009 682.9 Cellulitis 06/02/2009 373.11 Stye ( hordeolum Externum) 06/02/2009 682.9 Cellulitis 06/02/2009 373.11 Stye ( hordeolum Externum) 06/02/2009 682.9 Cellulitis 06/02/2009 GARY RENO MD 373.11 Stye (hordeolum Externum) 06/02/2009 GARY RENO MD 682.9 Cellulitis 06/02/2009 LIDIA HUFF APRN A 373.11 Stye (hordeolum Externum) 06/02/2009 LIDIA HUFF APRN A 682.9 Cellulitis 06/02/2009 LIDIA HUFF APRN A 373.11 Stye (hordeolum Externum) 06/02/2009 REFUGIO COMMERCIAL LOAN ANALYST, LIDIA A 682.9 Cellulitis 06/02/2009 REFUGIO COMMERCIAL LOAN ANALYST, LIDIA A 373.11 Stye (hordeolum Externum) 06/02/2009 REFUGIO COMMERCIAL LOAN ANALYST, LIDIA A 682.9 Cellulitis 06/02/2009 REFUGIO COMMERCIAL LOAN ANALYST, LIDIA A 373.11 Stye (hordeolum Externum) 06/02/2009 REFUGIO COMMERCIAL LOAN ANALYST, LIDIA A 682.9 Cellulitis 06/02/2009 REFUGIO COMMERCIAL LOAN ANALYST, LIDIA A 373.11 Stye (hordeolum Externum) 06/02/2009 REFUGIO COMMERCIAL LOAN ANALYST, LIDIA A 682.9 Cellulitis 06/02/2009 REFUGIO COMMERCIAL LOAN ANALYST, LIDIA A 373.11 Stye (hordeolum Externum) 06/02/2009 REFUGIO COMMERCIAL LOAN ANALYST, LIDIA A 682.9 Cellulitis 06/02/2009 AZAEL BECKER, RAYMUNDO 373.11 Stye (hordeolum Externum) 06/02/2009 AZAEL BECKER, RAYMUNDO 682.9 Cellulitis 06/02/2009 LUEVANO DO, MIKE K 373.11 Stye (hordeolum Externum) 06/02/2009 LUEVANO DO, MIKE K 682.9 Cellulitis 06/02/2009 REFUGIO COMMERCIAL LOAN ANALYST, LIDIA A 373.11 Stye (hordeolum Externum) 06/02/2009 REFUGIO COMMERCIAL LOAN ANALYST, LIDIA A 682.9 Cellulitis 06/02/2009 LUEVANO DO, MIKE K 373.11 Stye (hordeolum Externum) 06/02/2009 LUEVANO DO, MIKE K 682.9 Cellulitis 06/02/2009 LUEVANO DO, MIKE K 373.11 Stye (hordeolum Externum) 06/02/2009 LUEVANO DO, MIKE K 682.9 Cellulitis 06/02/2009 [employer]IO [employer] ANALYST, LIDIA A 373.11 Stye (hordeolum Externum) 06/02/2009 RE[employer]IO [employer] ANALYST, LIDIA A 682.9 Cellulitis 08/18/2009 307.20 TIC DISORDER 08/18/2009 781.0 Abnormal Involuntary Movements 08/18/2009 307.20 TIC DISORDER 08/18/2009 781.0 Abnormal Involuntary Movements 08/18/2009 307.20 TIC DISORDER 08/18/2009 781.0 Abnormal Involuntary Movements 08/18/2009 307.20 TIC DISORDER 08/18/2009 781.0 Abnormal Involuntary Movements 08/18/2009 GARY RENO MD 307.20 TIC DISORDER 08/18/2009 GARY RENO MD 781.0 Abnormal Involuntary Movements 08/18/2009 307.20 TIC DISORDER 08/18/2009 781.0 Abnormal Involuntary Movements 08/18/2009 LUEVANO DO, MIKE K 307.20 TIC DISORDER 08/18/2009 LUEVANO DO, MIKE K 781.0 Abnormal Involuntary Movements 08/18/2009 307.20 TIC DISORDER 08/18/2009 781.0 Abnormal Involuntary Movements 08/18/2009 307.20 TIC DISORDER 08/18/2009 781.0 Abnormal Involuntary Movements 08/18/2009 307.20 TIC DISORDER 08/18/2009 781.0 Abnormal Involuntary Movements 08/18/2009 GARY RENO MD 307.20 TIC DISORDER 08/18/2009 GARY RENO MD 781.0 Abnormal Involuntary Movements 08/18/2009 [employer] ANALYST, LIDIA A 307.20 TIC DISORDER 08/18/2009 [employer] ANALYST, LIDIA A 781.0 Abnormal Involuntary Movements 08/18/2009 [employer] ANALYST, LIDIA A 307.20 TIC DISORDER 08/18/2009 RE[employer]IO [employer] ANALYST, LIDIA A 781.0 Abnormal Involuntary Movements 08/18/2009 RE[employer]IO [employer] ANALYST, LIDIA A 307.20 TIC DISORDER 08/18/2009 REF[employer]IO [employer] ANALYST, LIDIA A 781.0 Abnormal Involuntary Movements 08/18/2009 RE[employer]IO [employer] ANALYST, LIDIA A 307.20 TIC DISORDER 08/18/2009 RE[employer]IO [employer] ANALYST, LIDIA A 781.0 Abnormal Involuntary Movements 08/18/2009 [employer]IO [employer] ANALYST, LIDIA A 307.20 TIC DISORDER 08/18/2009 RE[employer]IO [employer] ANALYST, LIDIA A 781.0 Abnormal Involuntary Movements 08/18/2009 [employer] ANALYST, LIDIA A 307.20 TIC DISORDER 08/18/2009 [employer] ANALYST, LIDIA A 781.0 Abnormal Involuntary Movements 08/18/2009 AZAEL MD, RAYMUNDO 307.20 TIC DISORDER 08/18/2009 AZAEL BECKER, RAYMUNDO 781.0 Abnormal Involuntary Movements 08/18/2009 LUEVANO DO, MIKE K 307.20 TIC DISORDER 08/18/2009 LUEVANO DO, MIKE K 781.0 Abnormal Involuntary Movements 08/18/2009 [employer] ANALYST, LIDIA A 307.20 TIC DISORDER 08/18/2009 [employer] ANALYST, LIDIA A 781.0 Abnormal Involuntary Movements 08/18/2009 LUEVANO DO, MIKE K 307.20 TIC DISORDER 08/18/2009 LUEVANO DO, MIKE K 781.0 Abnormal Involuntary Movements 08/18/2009 LUEVANO DO, MIEK K 307.20 TIC DISORDER 08/18/2009 LUEVANO DO, MIKE K 781.0 Abnormal Involuntary Movements 08/18/2009 [employer] COMM[employer] LOAN ANALYST, LIDIA A 307.20 TIC DISORDER 08/18/2009 RE[employer]IO COMMERCIAL LOAN ANALYST, LIDIA A 781.0 Abnormal Involuntary Movements 10/05/2009 465.9 Acute Upper Respiratory Infections Of Unspecified Site 10/05/2009 465.9 Acute Upper Respiratory Infections Of Unspecified Site 10/05/2009 465.9 Acute Upper Respiratory Infections Of Unspecified Site 10/05/2009 465.9 Acute Upper Respiratory Infections Of Unspecified Site 10/05/2009 GARY RENO MD 465.9 Acute Upper Respiratory Infections Of Unspecified Site 10/05/2009 465.9 Acute Upper Respiratory Infections Of Unspecified Site 10/05/2009 LUEVANO DO, MIKE K 465.9 Acute Upper Respiratory Infections Of Unspecified Site 10/05/2009 465.9 Acute Upper Respiratory Infections Of Unspecified Site 10/05/2009 465.9 Acute Upper Respiratory Infections Of Unspecified Site 10/05/2009 465.9 Acute Upper Respiratory Infections Of Unspecified Site 10/05/2009 GARY RENO MD 465.9 Acute Upper Respiratory Infections Of Unspecified Site 10/05/2009 REFUGIO COMMERCIAL LOAN ANALYST, LIDIA A 465.9 Acute Upper Respiratory Infections Of Unspecified Site 10/05/2009 REFUGIO COMMERCIAL LOAN ANALYST LIDIA A 465.9 Acute Upper Respiratory Infections Of Unspecified Site 10/05/2009 REFUGIO COMMERCIAL LOAN ANALYST, LIDIA A 465.9 Acute Upper Respiratory Infections Of Unspecified Site 10/05/2009 REFUGIO COMMERCIAL LOAN ANALYST, LIDIA A 465.9 Acute Upper Respiratory Infections Of Unspecified Site 10/05/2009 REFUGIO COMMERCIAL LOAN ANALYST, LIDIA A 465.9 Acute Upper Respiratory Infections Of Unspecified Site 10/05/2009 REFUGIO COMMERCIAL LOAN ANALYST, LIDIA A 465.9 Acute Upper Respiratory Infections Of Unspecified Site 10/05/2009 AZAEL BECKER, RAYMUNDO 465.9 Acute Upper Respiratory Infections Of Unspecified Site 10/05/2009 LUEVANO DO, MIKE K 465.9 Acute Upper Respiratory Infections Of Unspecified Site 10/05/2009 REFUGIO COMMERCIAL LOAN ANALYST, LIDIA A 465.9 Acute Upper Respiratory Infections Of Unspecified Site 10/05/2009 LUEVANO DO, MIKE K 465.9 Acute Upper Respiratory Infections Of Unspecified Site 10/05/2009 LUEVANO DO, MIKE K 465.9 Acute Upper Respiratory Infections Of Unspecified Site 10/05/2009 REFUGIO COMMERCIAL LOAN ANALYST, LIDIA A 465.9 Acute Upper Respiratory Infections Of Unspecified Site 10/06/2009 477.9 RHINITIS 10/06/2009 477.9 RHINITIS 10/06/2009 477.9 RHINITIS 10/06/2009 477.9 RHINITIS 10/06/2009 GARY RENO MD 477.9 RHINITIS 10/06/2009 477.9 RHINITIS 10/06/2009 LUEVANO DOMIKE 477.9 RHINITIS 10/06/2009 477.9 RHINITIS 10/06/2009 477.9 RHINITIS 10/06/2009 477.9 RHINITIS 10/06/2009 GARY RENO MD 477.9 RHINITIS 10/06/2009 REFUGIO COMMERCIAL LOAN ANALYST, LIDIA A 477.9 RHINITIS 10/06/2009 REFUGIO COMMERCIAL LOAN ANALYST, LIDIA A 477.9 RHINITIS 10/06/2009 REFUGIO COMMERCIAL LOAN ANALYST, LIDIA A 477.9 RHINITIS 10/06/2009 REFUGIO COMMERCIAL LOAN ANALYST, LIDIA A 477.9 RHINITIS 10/06/2009 REFUGIO COMMERCIAL LOAN ANALYST, LIDIA A 477.9 RHINITIS 10/06/2009 REFUGIO COMMERCIAL LOAN ANALYST, LIDIA A 477.9 RHINITIS 10/06/2009 AZAEL BECKER, RAYMUNDO 477.9 RHINITIS 10/06/2009 LUEVANO DO, MIKE K 477.9 RHINITIS 10/06/2009 REFUGIO COMMERCIAL LOAN ANALYST, LIDIA A 477.9 RHINITIS 10/06/2009 LUEVANO DO, MIKE K 477.9 RHINITIS 10/06/2009 MIKE LUEVANO DO K 477.9 RHINITIS 10/06/2009 REFUGIO COMMERCIAL LOAN ANALYST, LIDIA A 477.9 RHINITIS 10/20/2009 314.01 ADHD COMBINED 10/20/2009 314.01 ADHD COMBINED 10/20/2009 314.01 ADHD COMBINED 10/20/2009 314.01 ADHD COMBINED 10/20/2009 SHADIA BECKER, GARY 314.01 ADHD COMBINED 10/20/2009 314.01 ADHD COMBINED 10/20/2009 MIKE LUEVANO DO 314.01 ADHD COMBINED 10/20/2009 314.01 ADHD COMBINED 10/20/2009 314.01 ADHD COMBINED 10/20/2009 314.01 ADHD COMBINED 10/20/2009 GARY RENO MD 314.01 ADHD COMBINED 10/20/2009 RE[employer]IO COMMERCIAL LOAN ANALYST, LIDIA A 314.01 ADHD COMBINED 10/20/2009 REFUGIO COMMERCIAL LOAN ANALYST, LIDIA A 314.01 ADHD COMBINED 10/20/2009 REFUGIO COMMERCIAL LOAN ANALYST, LIDIA A 314.01 ADHD COMBINED 10/20/2009 REFUGIO COMMERCIAL LOAN ANALYST, LIDIA A 314.01 ADHD COMBINED 10/20/2009 REFUGIO COMMERCIAL LOAN ANALYST, LIDIA A 314.01 ADHD COMBINED 10/20/2009 REFUGIO COMMERCIAL LOAN ANALYST, LIDIA A 314.01 ADHD COMBINED 10/20/2009 AZAEL BECKER, RAYMUNDO 314.01 ADHD COMBINED 10/20/2009 MIKE LUEVANO DO K 314.01 ADHD COMBINED 10/20/2009 REFUGIO COMMERCIAL LOAN ANALYST, LIDIA A 314.01 ADHD COMBINED 10/20/2009 MIKE LUEVANO DO K 314.01 ADHD COMBINED 10/20/2009 MIKE LUEVANO DO K 314.01 ADHD COMBINED 10/20/2009 REFUGIO COMMERCIAL LOAN ANALYST, LIDIA A 314.01 ADHD COMBINED 11/24/2009 443.0 RAYNAUD'S SYNDROME 11/24/2009 443.0 RAYNAUD'S SYNDROME 11/24/2009 443.0 RAYNAUD'S SYNDROME 11/24/2009 443.0 RAYNAUD'S SYNDROME 11/24/2009 GARY RENO MD 443.0 RAYNAUD'S SYNDROME 11/24/2009 443.0 RAYNAUD'S SYNDROME 11/24/2009 MIKE LUEVANO DO 443.0 RAYNAUD'S SYNDROME 11/24/2009 443.0 RAYNAUD'S SYNDROME 11/24/2009 443.0 RAYNAUD'S SYNDROME 11/24/2009 443.0 RAYNAUD'S SYNDROME 11/24/2009 GARY RENO MD 443.0 RAYNAUD'S SYNDROME 11/24/2009 REFUGIO COMMERCIAL LOAN ANALYST, LIDIA A 443.0 RAYNAUD'S SYNDROME 11/24/2009 REFUGIO COMMERCIAL LOAN ANALYST, LIDIA A 443.0 RAYNAUD'S SYNDROME 11/24/2009 REFUGIO COMMERCIAL LOAN ANALYST, LIDIA A 443.0 RAYNAUD'S SYNDROME 11/24/2009 REFUGIO COMMERCIAL LOAN ANALYST, LIDIA A 443.0 RAYNAUD'S SYNDROME 11/24/2009 REFUGIO APRN, LIDIA A 443.0 RAYNAUD'S SYNDROME 11/24/2009 REFUGIO COMMERCIAL LOAN ANALYST, LIDIA A 443.0 RAYNAUD'S SYNDROME 11/24/2009 RAYMUNDO ADDISON MD 443.0 RAYNAUD'S SYNDROME 11/24/2009 LUEVANO DO, MIKE K 443.0 RAYNAUD'S SYNDROME 11/24/2009 REFUGIO COMMERCIAL LOAN ANALYST, LIDIA A 443.0 RAYNAUD'S SYNDROME 11/24/2009 LUEVANO DO, MIKE K 443.0 RAYNAUD'S SYNDROME 11/24/2009 LUEVANO DO, MIKE K 443.0 RAYNAUD'S SYNDROME 11/24/2009 REFUGIO MEDINA, LIDIA A 443.0 RAYNAUD'S SYNDROME 04/13/2010 599.0 Urinary Tract Infection 04/13/2010 599.0 Urinary Tract Infection 04/13/2010 599.0 Urinary Tract Infection 04/13/2010 599.0 Urinary Tract Infection 04/13/2010 GARY RENO MD 599.0 Urinary Tract Infection 04/13/2010 599.0 Urinary Tract Infection 04/13/2010 MIKE LUEVANO DO K 599.0 Urinary Tract Infection 04/13/2010 599.0 Urinary Tract Infection 04/13/2010 599.0 Urinary Tract Infection 04/13/2010 599.0 Urinary Tract Infection 04/13/2010 GARY RENO MD 599.0 Urinary Tract Infection 04/13/2010 REFUGIO COMMERCIAL LOAN ANALYST, LIDIA A 599.0 Urinary Tract Infection 04/13/2010 REFUGIO COMMERCIAL LOAN ANALYST, LIDIA A 599.0 Urinary Tract Infection 04/13/2010 REFUGIO COMMERCIAL LOAN ANALYST, LIDIA A 599.0 Urinary Tract Infection 04/13/2010 REFUGIO COMMERCIAL LOAN ANALYST, LIDIA A 599.0 Urinary Tract Infection 04/13/2010 REFUGIO COMMERCIAL LOAN ANALYST, LIDIA A 599.0 Urinary Tract Infection 04/13/2010 REFUGIO COMMERCIAL LOAN ANALYST, LIDIA A 599.0 Urinary Tract Infection 04/13/2010 AZAEL BECKER, RAYMUNDO 599.0 Urinary Tract Infection 04/13/2010 LUEVANO DO, MIKE K 599.0 Urinary Tract Infection 04/13/2010 REFUGIO COMMERCIAL LOAN ANALYST, LIDIA A 599.0 Urinary Tract Infection 04/13/2010 LUEVANO DO, MIKE K 599.0 Urinary Tract Infection 04/13/2010 LUEVANO DO, MIKE K 599.0 Urinary Tract Infection 04/13/2010 REFUGIO COMMERCIAL LOAN ANALYST, LIDIA A 599.0 Urinary Tract Infection 06/05/2010 110.5 Tinea Corporis 06/05/2010 110.5 Tinea Corporis 06/05/2010 110.5 Tinea Corporis 06/05/2010 110.5 Tinea Corporis 06/05/2010 GARY RENO MD 110.5 Tinea Corporis 06/05/2010 110.5 Tinea Corporis 06/05/2010 LUEVANO DO, MIKE K 110.5 Tinea Corporis 06/05/2010 110.5 Tinea Corporis 06/05/2010 110.5 Tinea Corporis 06/05/2010 110.5 Tinea Corporis 06/05/2010 GARY RENO MD 110.5 Tinea Corporis 06/05/2010 REFUGIO COMMERCIAL LOAN ANALYST, LIDIA A 110.5 Tinea Corporis 06/05/2010 REFUGIO COMMERCIAL LOAN ANALYST, LIDIA A 110.5 Tinea Corporis 06/05/2010 REFUGIO COMMERCIAL LOAN ANALYST, LIDIA A 110.5 Tinea Corporis 06/05/2010 REFUGIO COMMERCIAL LOAN ANALYST, LIDIA A 110.5 Tinea Corporis 06/05/2010 REFUGIO COMMERCIAL LOAN ANALYST, LIDIA A 110.5 Tinea Corporis 06/05/2010 REFUGIO COMMERCIAL LOAN ANALYST, LIDIA A 110.5 Tinea Corporis 06/05/2010 AZAEL BECKER, RAYMUNDO 110.5 Tinea Corporis 06/05/2010 LUEVANO DO, MIKE K 110.5 Tinea Corporis 06/05/2010 REFUGIO COMMERCIAL LOAN ANALYST, LIDIA A 110.5 Tinea Corporis 06/05/2010 LUEVANO DO, MIKE K 110.5 Tinea Corporis 06/05/2010 LUEVANO DO, MIKE K 110.5 Tinea Corporis 06/05/2010 REFUGIO COMMERCIAL LOAN ANALYST, LIDIA A 110.5 Tinea Corporis 08/07/2010 461.9 Sinusitis Acute 08/07/2010 461.9 Sinusitis Acute 08/07/2010 461.9 Sinusitis Acute 08/07/2010 461.9 Sinusitis Acute 08/07/2010 GARY RENO MD 461.9 Sinusitis Acute 08/07/2010 461.9 Sinusitis Acute 08/07/2010 CHLOÉ DO, MIKE K 461.9 Sinusitis Acute 08/07/2010 461.9 Sinusitis Acute 08/07/2010 461.9 Sinusitis Acute 08/07/2010 461.9 Sinusitis Acute 08/07/2010 GARY RENO MD 461.9 Sinusitis Acute 08/07/2010 REFUGIO COMMERCIAL LOAN ANALYST, LIDIA A 461.9 Sinusitis Acute 08/07/2010 REFUGIO COMMERCIAL LOAN ANALYST, LIDIA A 461.9 Sinusitis Acute 08/07/2010 REFUGIO COMMERCIAL LOAN ANALYST, LIDIA A 461.9 Sinusitis Acute 08/07/2010 REFUGIO COMMERCIAL LOAN ANALYST, LIDIA A 461.9 Sinusitis Acute 08/07/2010 REFUGIO COMMERCIAL LOAN ANALYST, LIDIA A 461.9 Sinusitis Acute 08/07/2010 REFUGIO COMMERCIAL LOAN ANALYST, LIDIA A 461.9 Sinusitis Acute 08/07/2010 RAYMNUDO ADDISON MD 461.9 Sinusitis Acute 08/07/2010 LUEVANO DO MIKE K 461.9 Sinusitis Acute 08/07/2010 REFUGIO COMMERCIAL LOAN ANALYST, LIDIA A 461.9 Sinusitis Acute 08/07/2010 LUEVANO DO, MIKE K 461.9 Sinusitis Acute 08/07/2010 LUEVANO DO, MIKE K 461.9 Sinusitis Acute 08/07/2010 REFUGIO COMMERCIAL LOAN ANALYST, LIDIA A 461.9 Sinusitis Acute 10/02/2010 692.9 Dermatitis Contact Unspecified 10/02/2010 692.9 Dermatitis Contact Unspecified 10/02/2010 692.9 Dermatitis Contact Unspecified 10/02/2010 692.9 Dermatitis Contact Unspecified 10/02/2010 GARY RENO MD 692.9 Dermatitis Contact Unspecified 10/02/2010 692.9 Dermatitis Contact Unspecified 10/02/2010 LUEVANO DO, MIKE K 692.9 Dermatitis Contact Unspecified 10/02/2010 692.9 Dermatitis Contact Unspecified 10/02/2010 692.9 Dermatitis Contact Unspecified 10/02/2010 692.9 Dermatitis Contact Unspecified 10/02/2010 GARY RENO MD 692.9 Dermatitis Contact Unspecified 10/02/2010 REFUGIO MEDINA, LIDIA A 692.9 Dermatitis Contact Unspecified 10/02/2010 REFUGIO MEDINA, LIDIA A 692.9 Dermatitis Contact Unspecified 10/02/2010 REFUGIO TON, LIDIA A 692.9 Dermatitis Contact Unspecified 10/02/2010 REFUGIO TON, LIDIA A 692.9 Dermatitis Contact Unspecified 10/02/2010 REFUGIO TON, LIDIA A 692.9 Dermatitis Contact Unspecified 10/02/2010 REFUGIO MEDINA, LIDIA A 692.9 Dermatitis Contact Unspecified 10/02/2010 RAYMUNDO ADDISON MD 692.9 Dermatitis Contact Unspecified 10/02/2010 LUEVANO DO, MIKE K 692.9 Dermatitis Contact Unspecified 10/02/2010 REFUGIO MEDINA, LIDIA A 692.9 Dermatitis Contact Unspecified 10/02/2010 LUEVANO DO, MIKE K 692.9 Dermatitis Contact Unspecified 10/02/2010 LUEVANO DO, MIKE K 692.9 Dermatitis Contact Unspecified 10/02/2010 REFUGIO MEDINA, LIDIA A 692.9 Dermatitis Contact Unspecified 11/30/2010 057.9 Viral Exanthem Unspecified 11/30/2010 057.9 Viral Exanthem Unspecified 11/30/2010 057.9 Viral Exanthem Unspecified 11/30/2010 057.9 Viral Exanthem Unspecified 11/30/2010 GARY RENO MD 057.9 Viral Exanthem Unspecified 11/30/2010 057.9 Viral Exanthem Unspecified 11/30/2010 MIKE LUEVANO DO K 057.9 Viral Exanthem Unspecified 11/30/2010 057.9 Viral Exanthem Unspecified 11/30/2010 057.9 Viral Exanthem Unspecified 11/30/2010 057.9 Viral Exanthem Unspecified 11/30/2010 GARY RENO MD 057.9 Viral Exanthem Unspecified 11/30/2010 REFUGIO COMMERCIAL LOAN ANALYST, LIDIA A 057.9 Viral Exanthem Unspecified 11/30/2010 REFUGIO COMMERCIAL LOAN ANALYST, LIDIA A 057.9 Viral Exanthem Unspecified 11/30/2010 REFUGIO COMMERCIAL LOAN ANALYST, LIDIA A 057.9 Viral Exanthem Unspecified 11/30/2010 REFUGIO COMMERCIAL LOAN ANALYST, LIDIA A 057.9 Viral Exanthem Unspecified 11/30/2010 REFUGIO COMMERCIAL LOAN ANALYST, LIDIA A 057.9 Viral Exanthem Unspecified 11/30/2010 REFUGIO COMMERCIAL LOAN ANALYST, LIDIA A 057.9 Viral Exanthem Unspecified 11/30/2010 AZAEL BECKER, RAYMUNDO 057.9 Viral Exanthem Unspecified 11/30/2010 MIKE LUEVANO DO K 057.9 Viral Exanthem Unspecified 11/30/2010 REFUGIO COMMERCIAL LOAN ANALYST, LIDIA A 057.9 Viral Exanthem Unspecified 11/30/2010 LUEVANO DO, MIKE K 057.9 Viral Exanthem Unspecified 11/30/2010 LUEVANO DOSHAWNA K 057.9 Viral Exanthem Unspecified 11/30/2010 REFUGIO COMMERCIAL LOAN ANALYST, LIDIA A 057.9 Viral Exanthem Unspecified 12/04/2010 053.9 Herpes Zoster Without Complication 12/04/2010 053.9 Herpes Zoster Without Complication 12/04/2010 053.9 Herpes Zoster Without Complication 12/04/2010 053.9 Herpes Zoster Without Complication 12/04/2010 GARY RENO MD 053.9 Herpes Zoster Without Complication 12/04/2010 053.9 Herpes Zoster Without Complication 12/04/2010 MIKE LUEVANO DO K 053.9 Herpes Zoster Without Complication 12/04/2010 053.9 Herpes Zoster Without Complication 12/04/2010 053.9 Herpes Zoster Without Complication 12/04/2010 053.9 Herpes Zoster Without Complication 12/04/2010 GARY RENO MD 053.9 Herpes Zoster Without Complication 12/04/2010 REFUGIO COMMERCIAL LOAN ANALYST, LIDIA A 053.9 Herpes Zoster Without Complication 12/04/2010 REFUGIO COMMERCIAL LOAN ANALYST, LIDIA A 053.9 Herpes Zoster Without Complication 12/04/2010 REFUGIO COMMERCIAL LOAN ANALYST, LIDIA A 053.9 Herpes Zoster Without Complication 12/04/2010 REFUGIO COMMERCIAL LOAN ANALYST, LIDIA A 053.9 Herpes Zoster Without Complication 12/04/2010 REFUGIO COMMERCIAL LOAN ANALYST, LIDIA A 053.9 Herpes Zoster Without Complication 12/04/2010 REFUGIO COMMERCIAL LOAN ANALYST, LIDIA A 053.9 Herpes Zoster Without Complication 12/04/2010 RAYMUNDO ADDISON MD 053.9 Herpes Zoster Without Complication 12/04/2010 LUEVANO DO, MIKE K 053.9 Herpes Zoster Without Complication 12/04/2010 REFUGIO COMMERCIAL LOAN ANALYST, LIDIA A 053.9 Herpes Zoster Without Complication 12/04/2010 LUEVANO DO, MIKE K 053.9 Herpes Zoster Without Complication 12/04/2010 LUEVANO DO, MIKE K 053.9 Herpes Zoster Without Complication 12/04/2010 REFUGIO COMMERCIAL LOAN ANALYST, LIDIA A 053.9 Herpes Zoster Without Complication 01/16/2011 682.9 Cellulitis And Abscess Of Unspecified Sites 01/16/2011 919.4 Insect Bite Nonvenomous Of Other Multiple And Unspecified Sites Without Infection 01/16/2011 682.9 Cellulitis And Abscess Of Unspecified Sites 01/16/2011 919.4 Insect Bite Nonvenomous Of Other Multiple And Unspecified Sites Without Infection 01/16/2011 682.9 Cellulitis And Abscess Of Unspecified Sites 01/16/2011 919.4 Insect Bite Nonvenomous Of Other Multiple And Unspecified Sites Without Infection 01/16/2011 682.9 Cellulitis And Abscess Of Unspecified Sites 01/16/2011 919.4 Insect Bite Nonvenomous Of Other Multiple And Unspecified Sites Without Infection 01/16/2011 GARY RENO MD 682.9 Cellulitis And Abscess Of Unspecified Sites 01/16/2011 GARY RENO MD 919.4 Insect Bite Nonvenomous Of Other Multiple And Unspecified Sites Without Infection 01/16/2011 682.9 Cellulitis And Abscess Of Unspecified Sites 01/16/2011 919.4 Insect Bite Nonvenomous Of Other Multiple And Unspecified Sites Without Infection 01/16/2011 LUEVANO DO, MIKE K 682.9 Cellulitis And Abscess Of Unspecified Sites 01/16/2011 LUEVANO DO, MIKE K 919.4 Insect Bite Nonvenomous Of Other Multiple And Unspecified Sites Without Infection 01/16/2011 682.9 Cellulitis And Abscess Of Unspecified Sites 01/16/2011 919.4 Insect Bite Nonvenomous Of Other Multiple And Unspecified Sites Without Infection 01/16/2011 682.9 Cellulitis And Abscess Of Unspecified Sites 01/16/2011 919.4 Insect Bite Nonvenomous Of Other Multiple And Unspecified Sites Without Infection 01/16/2011 682.9 Cellulitis And Abscess Of Unspecified Sites 01/16/2011 919.4 Insect Bite Nonvenomous Of Other Multiple And Unspecified Sites Without Infection 01/16/2011 GARY RENO MD 682.9 Cellulitis And Abscess Of Unspecified Sites 01/16/2011 GARY RENO MD 919.4 Insect Bite Nonvenomous Of Other Multiple And Unspecified Sites Without Infection 01/16/2011 JOSEFINA HUFF APRNIDI A 682.9 Cellulitis And Abscess Of Unspecified Sites 01/16/2011 REFUGIO MEDINA LIDIA A 919.4 Insect Bite Nonvenomous Of Other Multiple And Unspecified Sites Without Infection 01/16/2011 REFUGIO TON LIDIA A 682.9 Cellulitis And Abscess Of Unspecified Sites 01/16/2011 REFUGIO COMMERCIAL LOAN ANALYST, LIDIA A 919.4 Insect Bite Nonvenomous Of Other Multiple And Unspecified Sites Without Infection 01/16/2011 REFUGIO TON, LIDIA A 682.9 Cellulitis And Abscess Of Unspecified Sites 01/16/2011 REFUGIO COMMERCIAL LOAN ANALYST, LIDIA A 919.4 Insect Bite Nonvenomous Of Other Multiple And Unspecified Sites Without Infection 01/16/2011 REFUGIO TON, LIDIA A 682.9 Cellulitis And Abscess Of Unspecified Sites 01/16/2011 RFEUGIO TON, LIDIA A 919.4 Insect Bite Nonvenomous Of Other Multiple And Unspecified Sites Without Infection 01/16/2011 REFUGIO MEDINA, LIDIA A 682.9 Cellulitis And Abscess Of Unspecified Sites 01/16/2011 REFUGIO COMMERCIAL LOAN ANALYST, LIDIA A 919.4 Insect Bite Nonvenomous Of Other Multiple And Unspecified Sites Without Infection 01/16/2011 REFUGIO MEDINA, LIDIA A 682.9 Cellulitis And Abscess Of Unspecified Sites 01/16/2011 REFUGIO MEDINA, LIDIA A 919.4 Insect Bite Nonvenomous Of Other Multiple And Unspecified Sites Without Infection 01/16/2011 RAYMUNDO ADDISON MD 682.9 Cellulitis And Abscess Of Unspecified Sites 01/16/2011 RAYMUNDO ADDISON MD 919.4 Insect Bite Nonvenomous Of Other Multiple And Unspecified Sites Without Infection 01/16/2011 LUEVANO DO, MIKE K 682.9 Cellulitis And Abscess Of Unspecified Sites 01/16/2011 LUEVANO DO, MIKE K 919.4 Insect Bite Nonvenomous Of Other Multiple And Unspecified Sites Without Infection 01/16/2011 JOSEFINA HUFF APRNIDI A 682.9 Cellulitis And Abscess Of Unspecified Sites 01/16/2011 JOSEFINA HUFF APRNIDI A 919.4 Insect Bite Nonvenomous Of Other Multiple And Unspecified Sites Without Infection 01/16/2011 LUEVANO DO, MIKE K 682.9 Cellulitis And Abscess Of Unspecified Sites 01/16/2011 LUEVANO DO, MIKE K 919.4 Insect Bite Nonvenomous Of Other Multiple And Unspecified Sites Without Infection 01/16/2011 LUEVANO DO, MIKE K 682.9 Cellulitis And Abscess Of Unspecified Sites 01/16/2011 LUEVANO DO, MIKE K 919.4 Insect Bite Nonvenomous Of Other Multiple And Unspecified Sites Without Infection 01/16/2011 REFUGIO MEDINA LIDIA A 682.9 Cellulitis And Abscess Of Unspecified Sites 01/16/2011 REFUGIO MEDINA, LIDIA A 919.4 Insect Bite Nonvenomous Of Other Multiple And Unspecified Sites Without Infection 04/09/2011 626.8 DUB 04/09/2011 626.8 Dub 04/09/2011 626.8 Dub 04/09/2011 626.8 Dub 04/09/2011 GARY RENO MD 626.8 Dub 04/09/2011 626.8 Dub 04/09/2011 LUEVANO DO, MIKE K 626.8 Dub 04/09/2011 626.8 Dub 04/09/2011 626.8 Dub 04/09/2011 626.8 Dub 04/09/2011 GARY RNEO MD 626.8 Dub 04/09/2011 REFUGIO COMMERCIAL LOAN ANALYST, LIDIA A 626.8 Dub 04/09/2011 REFUGIO COMMERCIAL LOAN ANALYST, LIDIA A 626.8 Dub 04/09/2011 REFUGIO COMMERCIAL LOAN ANALYST, LIDIA A 626.8 Dub 04/09/2011 REFUGIO COMMERCIAL LOAN ANALYST, LIDIA A 626.8 Dub 04/09/2011 REFUGIO COMMERCIAL LOAN ANALYST, LIDIA A 626.8 Dub 04/09/2011 REFUGIO COMMERCIAL LOAN ANALYST, LIDIA A 626.8 Dub 04/09/2011 RAYMUNDO ADDISON MD 626.8 Dub 04/09/2011 LUEVANO DO, MIKE K 626.8 Dub 04/09/2011 REFUGIO COMMERCIAL LOAN ANALYST, LIDIA A 626.8 Dub 04/09/2011 LUEVANO DO, MIKE K 626.8 Dub 04/09/2011 LUEVANO DO, MIKE K 626.8 Dub 04/09/2011 REFUGIO COMMERCIAL LOAN ANALYST, LIDIA A 626.8 Dub 04/23/2011 599.0 URINARY TRACT INFECTION 04/23/2011 789.00 ABDOMINAL PAIN UNSPECIFIED SITE 04/23/2011 599.0 Urinary Tract Infection 04/23/2011 789.00 Abdominal Pain Unspecified Site 04/23/2011 599.0 Urinary Tract Infection 04/23/2011 789.00 Abdominal Pain Unspecified Site 04/23/2011 599.0 Urinary Tract Infection 04/23/2011 789.00 Abdominal Pain Unspecified Site 04/23/2011 GARY RENO MD 599.0 Urinary Tract Infection 04/23/2011 GARY RENO MD 789.00 Abdominal Pain Unspecified Site 04/23/2011 599.0 Urinary Tract Infection 04/23/2011 789.00 Abdominal Pain Unspecified Site 04/23/2011 MIKE LUEVANO DO K 599.0 Urinary Tract Infection 04/23/2011 LUEVANO DO, MIKE K 789.00 Abdominal Pain Unspecified Site 04/23/2011 599.0 Urinary Tract Infection 04/23/2011 789.00 Abdominal Pain Unspecified Site 04/23/2011 599.0 Urinary Tract Infection 04/23/2011 789.00 Abdominal Pain Unspecified Site 04/23/2011 599.0 Urinary Tract Infection 04/23/2011 789.00 Abdominal Pain Unspecified Site 04/23/2011 GARY RENO MD 599.0 Urinary Tract Infection 04/23/2011 GARY RENO MD 789.00 Abdominal Pain Unspecified Site 04/23/2011 REFUGIO COMMERCIAL LOAN ANALYST, LIDIA A 599.0 Urinary Tract Infection 04/23/2011 REFUGIO COMMERCIAL LOAN ANALYST, LIDIA A 789.00 Abdominal Pain Unspecified Site 04/23/2011 REFUGIO COMMERCIAL LOAN ANALYST, LIDIA A 599.0 Urinary Tract Infection 04/23/2011 REFUGIO COMMERCIAL LOAN ANALYST, LIDIA A 789.00 Abdominal Pain Unspecified Site 04/23/2011 REFUGIO COMMERCIAL LOAN ANALYST, LIDIA A 599.0 Urinary Tract Infection 04/23/2011 REFUGIO COMMERCIAL LOAN ANALYST, LIDIA A 789.00 Abdominal Pain Unspecified Site 04/23/2011 REFUGIO COMMERCIAL LOAN ANALYST, LIDIA A 599.0 Urinary Tract Infection 04/23/2011 REFUGIO COMMERCIAL LOAN ANALYST, LIDIA A 789.00 Abdominal Pain Unspecified Site 04/23/2011 REFUGIO COMMERCIAL LOAN ANALYST, LIDIA A 599.0 Urinary Tract Infection 04/23/2011 REFUGIO COMMERCIAL LOAN ANALYST, LIDIA A 789.00 Abdominal Pain Unspecified Site 04/23/2011 REFUGIO COMMERCIAL LOAN ANALYST, LIDIA A 599.0 Urinary Tract Infection 04/23/2011 REFUGIO COMMERCIAL LOAN ANALYST, LIDIA A 789.00 Abdominal Pain Unspecified Site 04/23/2011 AZAEL BECKER, RAYMUNDO 599.0 Urinary Tract Infection 04/23/2011 AZAEL BECKER, RAYMUNDO 789.00 Abdominal Pain Unspecified Site 04/23/2011 LUEVANO DO, MIKE K 599.0 Urinary Tract Infection 04/23/2011 LUEVANO DO, MIKE K 789.00 Abdominal Pain Unspecified Site 04/23/2011 REFUGIO COMMERCIAL LOAN ANALYST, LIDIA A 599.0 Urinary Tract Infection 04/23/2011 JOSEFINA HUFF APRNIDI A 789.00 Abdominal Pain Unspecified Site 04/23/2011 LUEVANO DO, MIKE K 599.0 Urinary Tract Infection 04/23/2011 LUEVANO DO, MIKE K 789.00 Abdominal Pain Unspecified Site 04/23/2011 LUEVANO DO, MIKE K 599.0 Urinary Tract Infection 04/23/2011 LUEVANO DO, MIKE K 789.00 Abdominal Pain Unspecified Site 04/23/2011 JOSEFINA HUFF APRNIDI A 599.0 Urinary Tract Infection 04/23/2011 JOSEFINA HUFF APRNIDI A 789.00 Abdominal Pain Unspecified Site 07/10/2011 626.4 IRREGULAR MENSTRUAL CYCLE 07/10/2011 V25.9 CONTRACEPTION MANAGEMENT 07/10/2011 V65.45 STD COUNSELING 07/10/2011 V69.2 HIGH-RISK SEXUAL BEHAVIOR 07/10/2011 V72.41 TEST NEGATIVE RESULT 07/10/2011 V74.5 STD SCREEN 07/10/2011 626.4 IRREGULAR MENSTRUAL CYCLE 07/10/2011 V25.9 Contraception Management 07/10/2011 V65.45 Std Counseling 07/10/2011 V69.2 HIGH-RISK SEXUAL BEHAVIOR 07/10/2011 V72.41 Test Negative Result 07/10/2011 V74.5 Std Screen 07/10/2011 626.4 IRREGULAR MENSTRUAL CYCLE 07/10/2011 V25.9 Contraception Management 07/10/2011 V65.45 Std Counseling 07/10/2011 V69.2 HIGH-RISK SEXUAL BEHAVIOR 07/10/2011 V72.41 Test Negative Result 07/10/2011 V74.5 Std Screen 07/10/2011 626.4 IRREGULAR MENSTRUAL CYCLE 07/10/2011 V25.9 Contraception Management 07/10/2011 V65.45 Std Counseling 07/10/2011 V69.2 HIGH-RISK SEXUAL BEHAVIOR 07/10/2011 V72.41 Test Negative Result 07/10/2011 V74.5 Std Screen 07/10/2011 GARY RENO MD 626.4 IRREGULAR MENSTRUAL CYCLE 07/10/2011 GARY RENO MD V25.9 Contraception Management 07/10/2011 GARY RENO MD V65.45 Std Counseling 07/10/2011 GARY RENO MD V69.2 HIGH-RISK SEXUAL BEHAVIOR 07/10/2011 SHADIA BECKER, GARY V72.41 Test Negative Result 07/10/2011 GARY RENO MD V74.5 Std Screen 07/10/2011 626.4 IRREGULAR MENSTRUAL CYCLE 07/10/2011 V25.9 Contraception Management 07/10/2011 V65.45 Std Counseling 07/10/2011 V69.2 HIGH-RISK SEXUAL BEHAVIOR 07/10/2011 V72.41 Test Negative Result 07/10/2011 V74.5 Std Screen 07/10/2011 MIKE LUEVANO DO K 626.4 IRREGULAR MENSTRUAL CYCLE 07/10/2011 MIKE LUEVANO DO K V25.9 Contraception Management 07/10/2011 MIKE LUEVANO DO K V65.45 Std Counseling 07/10/2011 MIKE LUEVANO DO K V69.2 HIGH-RISK SEXUAL BEHAVIOR 07/10/2011 MIKE LUEVANO DO K V72.41 Test Negative Result 07/10/2011 MIKE LUEVANO DO K V74.5 Std Screen 07/10/2011 626.4 IRREGULAR MENSTRUAL CYCLE 07/10/2011 V25.9 Contraception Management 07/10/2011 V65.45 Std Counseling 07/10/2011 V69.2 HIGH-RISK SEXUAL BEHAVIOR 07/10/2011 V72.41 Test Negative Result 07/10/2011 V74.5 Std Screen 07/10/2011 626.4 IRREGULAR MENSTRUAL CYCLE 07/10/2011 V25.9 Contraception Management 07/10/2011 V65.45 Std Counseling 07/10/2011 V69.2 HIGH-RISK SEXUAL BEHAVIOR 07/10/2011 V72.41 Test Negative Result 07/10/2011 V74.5 Std Screen 07/10/2011 626.4 IRREGULAR MENSTRUAL CYCLE 07/10/2011 V25.9 Contraception Management 07/10/2011 V65.45 Std Counseling 07/10/2011 V69.2 HIGH-RISK SEXUAL BEHAVIOR 07/10/2011 V72.41 Test Negative Result 07/10/2011 V74.5 Std Screen 07/10/2011 SHADIA BECKER, GARY 626.4 IRREGULAR MENSTRUAL CYCLE 07/10/2011 GARY RENO MD V25.9 Contraception Management 07/10/2011 GARY RENO MD V65.45 Std Counseling 07/10/2011 SHADIA BECKER, GARY V69.2 HIGH-RISK SEXUAL BEHAVIOR 07/10/2011 SHADIA BECKER, GARY V72.41 Test Negative Result 07/10/2011 SHADIA BECKER, GARY V74.5 Std Screen 07/10/2011 JOSEFINA HUFF APRNIDI A 626.4 IRREGULAR MENSTRUAL CYCLE 07/10/2011 REFUGIO TOAdy LIDIA A V25.9 Contraception Management 07/10/2011 REFUGIO TOAdy LIDIA A V65.45 Std Counseling 07/10/2011 REFUGIO TOAdy LIDIA A V69.2 HIGH-RISK SEXUAL BEHAVIOR 07/10/2011 REFUGIO TOAdy LIDIA A V72.41 Test Negative Result 07/10/2011 REFUGIO COMMERCIAL LOAN ANALYST, LIDIA A V74.5 Std Screen 07/10/2011 REFUGIO COMMERCIAL LOAN ANALYST, LIDIA A 626.4 IRREGULAR MENSTRUAL CYCLE 07/10/2011 REFUGIO COMMERCIAL LOAN ANALYST, LIDIA A V25.9 Contraception Management 07/10/2011 REFUGIO COMMERCIAL LOAN ANALYST, LIDIA A V65.45 Std Counseling 07/10/2011 REFUGIO COMMERCIAL LOAN ANALYST, LIDIA A V69.2 HIGH-RISK SEXUAL BEHAVIOR 07/10/2011 REFUGIO COMMERCIAL LOAN ANALYST, LIDIA A V72.41 Test Negative Result 07/10/2011 REFUGIO COMMERCIAL LOAN ANALYST, LIDIA A V74.5 Std Screen 07/10/2011 REFUGIO COMMERCIAL LOAN ANALYST, LIDIA A 626.4 IRREGULAR MENSTRUAL CYCLE 07/10/2011 REFUGIO COMMERCIAL LOAN ANALYST, LIDIA A V25.9 Contraception Management 07/10/2011 REFUGIO COMMERCIAL LOAN ANALYST, LIDIA A V65.45 Std Counseling 07/10/2011 REFUGIO COMMERCIAL LOAN ANALYST, LIDIA A V69.2 HIGH-RISK SEXUAL BEHAVIOR 07/10/2011 REFUGIO COMMERCIAL LOAN ANALYST, LIDIA A V72.41 Test Negative Result 07/10/2011 REFUGIO COMMERCIAL LOAN ANALYST, LIDIA A V74.5 Std Screen 07/10/2011 REFUGIO COMMERCIAL LOAN ANALYST, LIDIA A 626.4 IRREGULAR MENSTRUAL CYCLE 07/10/2011 REFUGIO COMMERCIAL LOAN ANALYST, LIDIA A V25.9 Contraception Management 07/10/2011 REFUGIO COMMERCIAL LOAN ANALYST, LIDIA A V65.45 Std Counseling 07/10/2011 REFUGIO COMMERCIAL LOAN ANALYST, LIDIA A V69.2 HIGH-RISK SEXUAL BEHAVIOR 07/10/2011 LIDIA HUFF APRN A V72.41 Test Negative Result 07/10/2011 LIDIA HUFF APRN V74.5 Std Screen 07/10/2011 LIDIA HUFF APRN A 626.4 IRREGULAR MENSTRUAL CYCLE 07/10/2011 LIDIA HUFF APRN A V25.9 Contraception Management 07/10/2011 LIDIA HUFF APRN A V65.45 Std Counseling 07/10/2011 LIDIA HUFF APRN A V69.2 HIGH-RISK SEXUAL BEHAVIOR 07/10/2011 LIDIA HUFF APRN V72.41 Test Negative Result 07/10/2011 LIDIA HUFF APRN V74.5 Std Screen 07/10/2011 LIDIA HUFF APRN A 626.4 IRREGULAR MENSTRUAL CYCLE 07/10/2011 LIDIA HUFF APRN A V25.9 Contraception Management 07/10/2011 LIDIA HUFF APRN A V65.45 Std Counseling 07/10/2011 LIDIA HUFF APRN A V69.2 HIGH-RISK SEXUAL BEHAVIOR 07/10/2011 LIDIA HUFF APRN A V72.41 Test Negative Result 07/10/2011 LIDIA HUFF APRN A V74.5 Std Screen 07/10/2011 RAYMUNDO ADDISON MD 626.4 IRREGULAR MENSTRUAL CYCLE 07/10/2011 RAYMUNDO ADDISON MD V25.9 Contraception Management 07/10/2011 RAYMUNDO ADDISON MD V65.45 Std Counseling 07/10/2011 RAYMUNDO ADDISON MD V69.2 HIGH-RISK SEXUAL BEHAVIOR 07/10/2011 RAYMUNDO ADDISON MD V72.41 Test Negative Result 07/10/2011 RAYMUNDO ADDISON MD V74.5 Std Screen 07/10/2011 LUEVANO SHAWN GARSIAA K 626.4 IRREGULAR MENSTRUAL CYCLE 07/10/2011 LUEVANO DO MIKE K V25.9 Contraception Management 07/10/2011 LUEAVNO DO MIKE K V65.45 Std Counseling 07/10/2011 LUEVANO DO MIKE K V69.2 HIGH-RISK SEXUAL BEHAVIOR 07/10/2011 LUEVANO DO MIKE K V72.41 Test Negative Result 07/10/2011 LUEVANO DO MIKE K V74.5 Std Screen 07/10/2011 REFUGIO COMMERCIAL LOAN ANALYST, LIDIA A 626.4 IRREGULAR MENSTRUAL CYCLE 07/10/2011 REFUGIO COMMERCIAL LOAN ANALYST, LIDIA A V25.9 Contraception Management 07/10/2011 REFUGIO COMMERCIAL LOAN ANALYST, LIDIA A V65.45 Std Counseling 07/10/2011 REFUGIO COMMERCIAL LOAN ANALYST, LIDIA A V69.2 HIGH-RISK SEXUAL BEHAVIOR 07/10/2011 REFUGIO COMMERCIAL LOAN ANALYST, LIDIA A V72.41 Test Negative Result 07/10/2011 REFUGIO COMMERCIAL LOAN ANALYST, LIDIA A V74.5 Std Screen 07/10/2011 LUEVANO DOSHAWNA K 626.4 IRREGULAR MENSTRUAL CYCLE 07/10/2011 CHLOÉ GARSIASHAWNA K V25.9 Contraception Management 07/10/2011 CHLOÉ GARSIASHAWNA K V65.45 Std Counseling 07/10/2011 CHLOÉ GARSIASHAWNA K V69.2 HIGH-RISK SEXUAL BEHAVIOR 07/10/2011 CHLOÉ GARSIASHAWNA K V72.41 Test Negative Result 07/10/2011 CHLOÉ DOSHAWNA K V74.5 Std Screen 07/10/2011 LUEVANO DOSHAWNA K 626.4 IRREGULAR MENSTRUAL CYCLE 07/10/2011 CHLOÉ GARSIASHAWNA K V25.9 Contraception Management 07/10/2011 CHLOÉ GARSIASHAWNA K V65.45 Std Counseling 07/10/2011 CHLOÉ GARSIASHAWNA K V69.2 HIGH-RISK SEXUAL BEHAVIOR 07/10/2011 LUEVANO DOSHAWNA K V72.41 Test Negative Result 07/10/2011 CHLOÉ GARSIASHAWNA K V74.5 Std Screen 07/10/2011 REFUGIO MEDINA, LIDIA A 626.4 IRREGULAR MENSTRUAL CYCLE 07/10/2011 REFUGIO COMMERCIAL LOAN ANALYST, LIDIA A V25.9 Contraception Management 07/10/2011 REFUGIO COMMERCIAL LOAN ANALYST, LIDIA A V65.45 Std Counseling 07/10/2011 REFUGIO COMMERCIAL LOAN ANALYST, LIDIA A V69.2 HIGH-RISK SEXUAL BEHAVIOR 07/10/2011 REFUGIO COMMERCIAL LOAN ANALYST, LIDIA A V72.41 Test Negative Result 07/10/2011 REFUGIO COMMERCIAL LOAN ANALYST, LIDIA A V74.5 Std Screen 08/30/2011 256.4 POLYCYSTIC OVARIES 08/30/2011 256.4 POLYCYSTIC OVARIES 08/30/2011 256.4 POLYCYSTIC OVARIES 08/30/2011 256.4 POLYCYSTIC OVARIES 08/30/2011 GARY RENO MD 256.4 POLYCYSTIC OVARIES 08/30/2011 256.4 POLYCYSTIC OVARIES 08/30/2011 LUEVANO DO, MIKE K 256.4 POLYCYSTIC OVARIES 08/30/2011 256.4 POLYCYSTIC OVARIES 08/30/2011 256.4 POLYCYSTIC OVARIES 08/30/2011 256.4 POLYCYSTIC OVARIES 08/30/2011 GARY RENO MD 256.4 POLYCYSTIC OVARIES 08/30/2011 REFUGIO COMMERCIAL LOAN ANALYST, LIDIA A 256.4 POLYCYSTIC OVARIES 08/30/2011 REFUGIO COMMERCIAL LOAN ANALYST, LIDIA A 256.4 POLYCYSTIC OVARIES 08/30/2011 REFUGIO COMMERCIAL LOAN ANALYST, LIDIA A 256.4 POLYCYSTIC OVARIES 08/30/2011 REFUGIO COMMERCIAL LOAN ANALYST, LIDIA A 256.4 POLYCYSTIC OVARIES 08/30/2011 REFUGIO COMMERCIAL LOAN ANALYST, LIDIA A 256.4 POLYCYSTIC OVARIES 08/30/2011 REFUGIO COMMERCIAL LOAN ANALYST, LIDIA A 256.4 POLYCYSTIC OVARIES 08/30/2011 AZAEL BECKER, RAYMUNDO 256.4 POLYCYSTIC OVARIES 08/30/2011 LUEVANO DO, MIKE K 256.4 POLYCYSTIC OVARIES 08/30/2011 REFUGIO COMMERCIAL LOAN ANALYST, LIDIA A 256.4 POLYCYSTIC OVARIES 08/30/2011 LUEVANO DO MIKE K 256.4 POLYCYSTIC OVARIES 08/30/2011 LUEVANO DO, MIKE K 256.4 POLYCYSTIC OVARIES 08/30/2011 REFUGIO COMMERCIAL LOAN ANALYST, LIDIA A 256.4 POLYCYSTIC OVARIES 08/30/2011 Ot 789.06 ABDOMINAL PAIN, EPIGASTRIC 09/25/2011 564.1 IRRITABLE BOWEL SYNDROME 09/25/2011 564.1 IRRITABLE BOWEL SYNDROME 09/25/2011 564.1 IRRITABLE BOWEL SYNDROME 09/25/2011 564.1 IRRITABLE BOWEL SYNDROME 09/25/2011 GARY RENO MD 564.1 IRRITABLE BOWEL SYNDROME 09/25/2011 564.1 IRRITABLE BOWEL SYNDROME 09/25/2011 MIKE LUEVANO DO 564.1 IRRITABLE BOWEL SYNDROME 09/25/2011 564.1 IRRITABLE BOWEL SYNDROME 09/25/2011 564.1 IRRITABLE BOWEL SYNDROME 09/25/2011 564.1 IRRITABLE BOWEL SYNDROME 09/25/2011 GARY RENO MD 564.1 IRRITABLE BOWEL SYNDROME 09/25/2011 REFUGIO MEDINA, LIDIA A 564.1 IRRITABLE BOWEL SYNDROME 09/25/2011 REFUGIO MEDINA, LIDIA A 564.1 IRRITABLE BOWEL SYNDROME 09/25/2011 REFUGIO MEDINA, LIDIA A 564.1 IRRITABLE BOWEL SYNDROME 09/25/2011 REFUGIO MEDINA, LIDIA A 564.1 IRRITABLE BOWEL SYNDROME 09/25/2011 REFUGIO MEDINA, LIDIA A 564.1 IRRITABLE BOWEL SYNDROME 09/25/2011 REFUGIO MEDINA, LIDIA A 564.1 IRRITABLE BOWEL SYNDROME 09/25/2011 AZAEL BECKER, RAYMUNDO 564.1 IRRITABLE BOWEL SYNDROME 09/25/2011 LUEVANO DO MIKE K 564.1 IRRITABLE BOWEL SYNDROME 09/25/2011 JOSEFINA HUFF APRNIDI A 564.1 IRRITABLE BOWEL SYNDROME 09/25/2011 LUEVANO DO MIKE K 564.1 IRRITABLE BOWEL SYNDROME 09/25/2011 LUEVANO DO, MIKE K 564.1 IRRITABLE BOWEL SYNDROME 09/25/2011 JOSEFINA HUFF APRNIDI A 564.1 IRRITABLE BOWEL SYNDROME 09/27/2011 V25.49 CONTRACEPTION SURVEILLANCE (REPEAT RX) 09/27/2011 V25.49 Contraception Surveillance (repeat Rx) 09/27/2011 V25.49 Contraception Surveillance (repeat Rx) 09/27/2011 V25.49 Contraception Surveillance (repeat Rx) 09/27/2011 GRAY RENO MD V25.49 Contraception Surveillance (repeat Rx) 09/27/2011 V25.49 Contraception Surveillance (repeat Rx) 09/27/2011 MIKE LUEVANO DO K V25.49 Contraception Surveillance (repeat Rx) 09/27/2011 V25.49 Contraception Surveillance (repeat Rx) 09/27/2011 V25.49 Contraception Surveillance (repeat Rx) 09/27/2011 V25.49 Contraception Surveillance (repeat Rx) 09/27/2011 GARY RENO MD V25.49 Contraception Surveillance (repeat Rx) 09/27/2011 LIDIA HUFF APRN A V25.49 Contraception Surveillance (repeat Rx) 09/27/2011 LIDIA HUFF APRN A V25.49 Contraception Surveillance (repeat Rx) 09/27/2011 REFUGIO MEDINA, LIDIA A V25.49 Contraception Surveillance (repeat Rx) 09/27/2011 LIDIA HUFF APRN A V25.49 Contraception Surveillance (repeat Rx) 09/27/2011 REFUGIO MEDINA, LIDIA A V25.49 Contraception Surveillance (repeat Rx) 09/27/2011 REFUGIO MEDINA, LIDIA A V25.49 Contraception Surveillance (repeat Rx) 09/27/2011 RAYMUNDO ADDISON MD V25.49 Contraception Surveillance (repeat Rx) 09/27/2011 MIKE LUEVANO DO V25.49 Contraception Surveillance (repeat Rx) 09/27/2011 REFUGIO MEDINA, LIDIA A V25.49 Contraception Surveillance (repeat Rx) 09/27/2011 MIKE LUEVANO DO V25.49 Contraception Surveillance (repeat Rx) 09/27/2011 MIKE LUEVANO DO V25.49 Contraception Surveillance (repeat Rx) 09/27/2011 LIDIA HUFF APRN A V25.49 Contraception Surveillance (repeat Rx) 01/16/2012 373.11 STYE ( HORDEOLUM EXTERNUM) 01/16/2012 373.11 Stye ( hordeolum Externum) 01/16/2012 373.11 Stye ( hordeolum Externum) 01/16/2012 373.11 Stye ( hordeolum Externum) 01/16/2012 GARY RENO MD 373.11 Stye (hordeolum Externum) 01/16/2012 373.11 Stye ( hordeolum Externum) 01/16/2012 MIKE LUEVANO DO 373.11 Stye (hordeolum Externum) 01/16/2012 373.11 Stye ( hordeolum Externum) 01/16/2012 373.11 Stye ( hordeolum Externum) 01/16/2012 373.11 Stye ( hordeolum Externum) 01/16/2012 GARY RENO MD 373.11 Stye (hordeolum Externum) 01/16/2012 LIDIA HUFF APRN 373.11 Stye (hordeolum Externum) 01/16/2012 LIDIA HUFF APRN 373.11 Stye (hordeolum Externum) 01/16/2012 REFUGIO MEDINA LIDIA A 373.11 Stye (hordeolum Externum) 01/16/2012 REFUGIO MEDINA, LIDIA A 373.11 Stye (hordeolum Externum) 01/16/2012 REFUGIO MEDINA, LIDIA A 373.11 Stye (hordeolum Externum) 01/16/2012 REFUGIO MEDINA, LIDIA A 373.11 Stye (hordeolum Externum) 01/16/2012 RAYMUNDO ADDISON MD 373.11 Stye (hordeolum Externum) 01/16/2012 MIKE LUEVANO DO K 373.11 Stye (hordeolum Externum) 01/16/2012 REFUGIO MEDINA, LIDIA A 373.11 Stye (hordeolum Externum) 01/16/2012 MIKE LUEVANO DO K 373.11 Stye (hordeolum Externum) 01/16/2012 LUEVANO SHAWN GARSIAA K 373.11 Stye (hordeolum Externum) 01/16/2012 REFUGIO MEDINA, LIDIA A 373.11 Stye (hordeolum Externum) 03/07/2012 462 PHARYNGITIS ACUTE 03/07/2012 462 Pharyngitis Acute 03/07/2012 462 Pharyngitis Acute 03/07/2012 462 Pharyngitis Acute 03/07/2012 GARY RENO MD 462 Pharyngitis Acute 03/07/2012 462 Pharyngitis Acute 03/07/2012 MIKE LUEVANO DO 462 Pharyngitis Acute 03/07/2012 462 Pharyngitis Acute 03/07/2012 462 Pharyngitis Acute 03/07/2012 462 Pharyngitis Acute 03/07/2012 GARY RENO MD 462 Pharyngitis Acute 03/07/2012 LIDIA HUFF APRN A 462 Pharyngitis Acute 03/07/2012 LIDIA HUFF APRN A 462 Pharyngitis Acute 03/07/2012 REFUGIO MEDINA, LIDIA A 462 Pharyngitis Acute 03/07/2012 REFUGIO MEDINA, LIDIA A 462 Pharyngitis Acute 03/07/2012 REFUGIO COMMERCIAL LOAN ANALYST, LIDIA A 462 Pharyngitis Acute 03/07/2012 REFUGIO TON, LIDIA A 462 Pharyngitis Acute 03/07/2012 RAYMUNDO ADDISON MD 462 Pharyngitis Acute 03/07/2012 MIKE LUEVANO DO 462 Pharyngitis Acute 03/07/2012 REFUGIO MEDINA, LIDIA A 462 Pharyngitis Acute 03/07/2012 LUEVANO MIKE GARSIA K 462 Pharyngitis Acute 03/07/2012 CHLOÉ GARSIAMIKE K 462 Pharyngitis Acute 03/07/2012 REFUGIO MEDINA, LIDIA A 462 Pharyngitis Acute 06/14/2012 V25.09 CONTRACEPTIVE COUNSELING - GENERAL 06/14/2012 V25.09 Contraceptive Counseling - General 06/14/2012 V25.09 Contraceptive Counseling - General 06/14/2012 V25.09 Contraceptive Counseling - General 06/14/2012 GARY RENO MD V25.09 Contraceptive Counseling - General 06/14/2012 V25.09 Contraceptive Counseling - General 06/14/2012 MIKE LUEVANO DO V25.09 Contraceptive Counseling - General 06/14/2012 V25.09 Contraceptive Counseling - General 06/14/2012 V25.09 Contraceptive Counseling - General 06/14/2012 V25.09 Contraceptive Counseling - General 06/14/2012 GARY RENO MD V25.09 Contraceptive Counseling - General 06/14/2012 REFUGIO TON, LIDIA A V25.09 Contraceptive Counseling - General 06/14/2012 REFUGIO COMMERCIAL LOAN ANALYST, LIDIA A V25.09 Contraceptive Counseling - General 06/14/2012 REFUGIO COMMERCIAL LOAN ANALYST, LIDIA A V25.09 Contraceptive Counseling - General 06/14/2012 REFUGIO COMMERCIAL LOAN ANALYST, LIDIA A V25.09 Contraceptive Counseling - General 06/14/2012 REFUGIO COMMERCIAL LOAN ANALYST, LIDIA A V25.09 Contraceptive Counseling - General 06/14/2012 REFUGIO COMMERCIAL LOAN ANALYST, LIDIA A V25.09 Contraceptive Counseling - General 06/14/2012 RAYMUNDO ADDISON MD V25.09 Contraceptive Counseling - General 06/14/2012 MIKE LUEVANO DO V25.09 Contraceptive Counseling - General 06/14/2012 REFUGIO COMMERCIAL LOAN ANALYST, LIDIA A V25.09 Contraceptive Counseling - General 06/14/2012 MIKE LUEVANO DO V25.09 Contraceptive Counseling - General 06/14/2012 MIKE LUEVANO DO V25.09 Contraceptive Counseling - General 06/14/2012 LIDIA HUFF APRN A V25.09 Contraceptive Counseling - General 06/17/2012 296.20 MAJOR DEPRESSIVE AFFECTIVE DISORDER SINGLE EPISODE UNSPECIFIED DEGREE 06/17/2012 296.20 MAJOR DEPRESSIVE AFFECTIVE DISORDER SINGLE EPISODE UNSPECIFIED DEGREE 06/17/2012 296.20 MAJOR DEPRESSIVE AFFECTIVE DISORDER SINGLE EPISODE UNSPECIFIED DEGREE 06/17/2012 GARY RENO MD 296.20 MAJOR DEPRESSIVE AFFECTIVE DISORDER SINGLE EPISODE UNSPECIFIED DEGREE 06/17/2012 296.20 MAJOR DEPRESSIVE AFFECTIVE DISORDER SINGLE EPISODE UNSPECIFIED DEGREE 06/17/2012 MIKE LUEVANO DO 296.20 MAJOR DEPRESSIVE AFFECTIVE DISORDER SINGLE EPISODE UNSPECIFIED DEGREE 06/17/2012 296.20 MAJOR DEPRESSIVE AFFECTIVE DISORDER SINGLE EPISODE UNSPECIFIED DEGREE 06/17/2012 296.20 MAJOR DEPRESSIVE AFFECTIVE DISORDER SINGLE EPISODE UNSPECIFIED DEGREE 06/17/2012 296.20 MAJOR DEPRESSIVE AFFECTIVE DISORDER SINGLE EPISODE UNSPECIFIED DEGREE 06/17/2012 GARY RENO MD 296.20 MAJOR DEPRESSIVE AFFECTIVE DISORDER SINGLE EPISODE UNSPECIFIED DEGREE 06/17/2012 JOSEFINA HUFF APRNIDI A 296.20 MAJOR DEPRESSIVE AFFECTIVE DISORDER SINGLE EPISODE UNSPECIFIED DEGREE 06/17/2012 JOSEFINA HUFF APRNIDI A 296.20 MAJOR DEPRESSIVE AFFECTIVE DISORDER SINGLE EPISODE UNSPECIFIED DEGREE 06/17/2012 JOSEFINA HUFF APRNIDI A 296.20 MAJOR DEPRESSIVE AFFECTIVE DISORDER SINGLE EPISODE UNSPECIFIED DEGREE 06/17/2012 JOSEFINA HUFF APRNIDI A 296.20 MAJOR DEPRESSIVE AFFECTIVE DISORDER SINGLE EPISODE UNSPECIFIED DEGREE 06/17/2012 JOSEFINA HUFF APRNIDI A 296.20 MAJOR DEPRESSIVE AFFECTIVE DISORDER SINGLE EPISODE UNSPECIFIED DEGREE 06/17/2012 JOSEFINA HUFF APRNIDI A 296.20 MAJOR DEPRESSIVE AFFECTIVE DISORDER SINGLE EPISODE UNSPECIFIED DEGREE 06/17/2012 RAYMUNDO ADDISON MD 296.20 MAJOR DEPRESSIVE AFFECTIVE DISORDER SINGLE EPISODE UNSPECIFIED DEGREE 06/17/2012 MIKE LUEVANO DO 296.20 MAJOR DEPRESSIVE AFFECTIVE DISORDER SINGLE EPISODE UNSPECIFIED DEGREE 06/17/2012 JOSEFINA HUFF APRNIDI A 296.20 MAJOR DEPRESSIVE AFFECTIVE DISORDER SINGLE EPISODE UNSPECIFIED DEGREE 06/17/2012 MIKE LUEVANO DO 296.20 MAJOR DEPRESSIVE AFFECTIVE DISORDER SINGLE EPISODE UNSPECIFIED DEGREE 06/17/2012 MIKE LUEVANO DO 296.20 MAJOR DEPRESSIVE AFFECTIVE DISORDER SINGLE EPISODE UNSPECIFIED DEGREE 06/17/2012 REFUGIO COMMERCIAL LOAN ANALYST, LIDIA A 296.20 MAJOR DEPRESSIVE AFFECTIVE DISORDER SINGLE EPISODE UNSPECIFIED DEGREE 06/25/2012 008.8 GASTROENTERITIS, VIRAL 06/25/2012 787.01 NAUSEA WITH VOMITING 06/25/2012 008.8 GASTROENTERITIS, VIRAL 06/25/2012 787.01 NAUSEA WITH VOMITING 06/25/2012 GARY RENO MD 008.8 Gastroenteritis, Viral 06/25/2012 GARY RENO MD 787.01 Nausea With Vomiting 06/25/2012 008.8 Gastroenteritis, Viral 06/25/2012 787.01 Nausea With Vomiting 06/25/2012 MIKE LUEVANO DO 008.8 Gastroenteritis, Viral 06/25/2012 MIKE LUEVANO DO 787.01 Nausea With Vomiting 06/25/2012 008.8 Gastroenteritis, Viral 06/25/2012 787.01 Nausea With Vomiting 06/25/2012 008.8 Gastroenteritis, Viral 06/25/2012 787.01 Nausea With Vomiting 06/25/2012 008.8 Gastroenteritis, Viral 06/25/2012 787.01 Nausea With Vomiting 06/25/2012 GARY RENO MD 008.8 Gastroenteritis, Viral 06/25/2012 GARY RENO MD 787.01 Nausea With Vomiting 06/25/2012 REFUGIO APRN, LIDIA A 008.8 Gastroenteritis, Viral 06/25/2012 REFUIGO COMMERCIAL LOAN ANALYST, LIDIA A 787.01 Nausea With Vomiting 06/25/2012 REFUGIO APRN, LIDIA A 008.8 Gastroenteritis, Viral 06/25/2012 REFUGIO COMMERCIAL LOAN ANALYST, LIDIA A 787.01 Nausea With Vomiting 06/25/2012 REFUGIO COMMERCIAL LOAN ANALYST, LIDIA A 008.8 Gastroenteritis, Viral 06/25/2012 REFUGIO COMMERCIAL LOAN ANALYST, LIDIA A 787.01 Nausea With Vomiting 06/25/2012 REFUGIO COMMERCIAL LOAN ANALYST, LIDIA A 008.8 Gastroenteritis, Viral 06/25/2012 REFUGIO COMMERCIAL LOAN ANALYST, LIDIA A 787.01 Nausea With Vomiting 06/25/2012 REFUGIO COMMERCIAL LOAN ANALYST, LIDIA A 008.8 Gastroenteritis, Viral 06/25/2012 REFUGIO TON, LIDIA A 787.01 Nausea With Vomiting 06/25/2012 REFUGIO MEDINA, LIDIA A 008.8 Gastroenteritis, Viral 06/25/2012 REFUGIO COMMERCIAL LOAN ANALYST, LIDIA A 787.01 Nausea With Vomiting 06/25/2012 RAYMUNDO ADDISON MD 008.8 Gastroenteritis, Viral 06/25/2012 DANIEL ADDISON MDISTA 787.01 Nausea With Vomiting 06/25/2012 LUEVANO DO, MIKE K 008.8 Gastroenteritis, Viral 06/25/2012 LUEVANO DO, MIKE K 787.01 Nausea With Vomiting 06/25/2012 REFUGIO COMMERCIAL LOAN ANALYST, LIDIA A 008.8 Gastroenteritis, Viral 06/25/2012 REFUGIO COMMERCIAL LOAN ANALYST, LIDIA A 787.01 Nausea With Vomiting 06/25/2012 LUEVANO DO MIKE K 008.8 Gastroenteritis, Viral 06/25/2012 LUEVANO DO, MIKE K 787.01 Nausea With Vomiting 06/25/2012 LUEVANO DO, MIKE K 008.8 Gastroenteritis, Viral 06/25/2012 LUEVANO DO, MIKE K 787.01 Nausea With Vomiting 06/25/2012 JOSEFINA HUFF APRNIDI A 008.8 Gastroenteritis, Viral 06/25/2012 REFUGIO APRN, LIDIA A 787.01 Nausea With Vomiting 07/02/2012 V25.9 CONTRACEPTION MANAGEMENT 07/02/2012 V74.5 STD SCREEN 07/02/2012 GARY RENO MD V25.9 CONTRACEPTION MANAGEMENT 07/02/2012 GARY RENO MD V74.5 STD SCREEN 07/02/2012 V25.9 Gynecologic Services Contraceptive Management 07/02/2012 V74.5 STD SCREEN 07/02/2012 MIKE LUEVANO DO V25.9 Gynecologic Services Contraceptive Management 07/02/2012 MIKE LUEVANO DO V74.5 STD SCREEN 07/02/2012 V25.9 Gynecologic Services Contraceptive Management 07/02/2012 V74.5 STD SCREEN 07/02/2012 V25.9 Gynecologic Services Contraceptive Management 07/02/2012 V74.5 STD SCREEN 07/02/2012 V25.9 Gynecologic Services Contraceptive Management 07/02/2012 V74.5 STD SCREEN 07/02/2012 GARY RENO MD V25.9 Gynecologic Services Contraceptive Management 07/02/2012 GARY RENO MD V74.5 STD SCREEN 07/02/2012 REFUGIO COMMERCIAL LOAN ANALYST, LIDIA A V25.9 Gynecologic Services Contraceptive Management 07/02/2012 REFUGIO COMMERCIAL LOAN ANALYST, LIDIA A V74.5 STD SCREEN 07/02/2012 REFUGIO COMMERCIAL LOAN ANALYST, LIDIA A V25.9 Gynecologic Services Contraceptive Management 07/02/2012 REFUGIO COMMERCIAL LOAN ANALYST, LIDIA A V74.5 STD SCREEN 07/02/2012 REFUGIO COMMERCIAL LOAN ANALYST, LIDIA A V25.9 Gynecologic Services Contraceptive Management 07/02/2012 REFUGIO COMMERCIAL LOAN ANALYST, LIDIA A V74.5 STD SCREEN 07/02/2012 REFUGIO COMMERCIAL LOAN ANALYST, LIDIA A V25.9 Gynecologic Services Contraceptive Management 07/02/2012 REFUGIO COMMERCIAL LOAN ANALYST, LIDIA A V74.5 STD SCREEN 07/02/2012 REFUGIO COMMERCIAL LOAN ANALYST, LIDIA A V25.9 Gynecologic Services Contraceptive Management 07/02/2012 REFUGIO TON, LIDIA A V74.5 STD SCREEN 07/02/2012 REFUGIO MEDINA, LIDIA A V25.9 Gynecologic Services Contraceptive Management 07/02/2012 REFUGIO TON, LIDIA A V74.5 STD SCREEN 07/02/2012 DANIEL ADDISON MDISTA V25.9 Gynecologic Services Contraceptive Management 07/02/2012 AZAEL BECKER RAYMUNDO V74.5 STD SCREEN 07/02/2012 LUEVANO DO MIKE K V25.9 Gynecologic Services Contraceptive Management 07/02/2012 LUEVANO DO MIKE K V74.5 STD SCREEN 07/02/2012 REFUGIO MEDINA, LIDIA A V25.9 Gynecologic Services Contraceptive Management 07/02/2012 REFUGIO MEDINA, LIDIA A V74.5 STD SCREEN 07/02/2012 CHLOÉ GARSIA MIKE K V25.9 Gynecologic Services Contraceptive Management 07/02/2012 LUEVANO , MIKE K V74.5 STD SCREEN 07/02/2012 LUEVANO DO MIKE K V25.9 Gynecologic Services Contraceptive Management 07/02/2012 LUEVANO DO MIKE K V74.5 STD SCREEN 07/02/2012 REFUGIO MEDINA, LIDIA A V25.9 Gynecologic Services Contraceptive Management 07/02/2012 REFUGIO TON, LIDIA A V74.5 STD SCREEN 07/03/2012 GARY RENO MD 787.03 VOMITING ALONE 07/03/2012 GARY RENO MD 789.00 ABDOMINAL PAIN UNSPECIFIED SITE 07/03/2012 787.03 VOMITING ALONE 07/03/2012 789.00 ABDOMINAL PAIN UNSPECIFIED SITE 07/03/2012 LUEVANO DOSHAWNA K 787.03 VOMITING ALONE 07/03/2012 LUEVANO DO, MIKE K 789.00 ABDOMINAL PAIN UNSPECIFIED SITE 07/03/2012 787.03 VOMITING ALONE 07/03/2012 789.00 ABDOMINAL PAIN UNSPECIFIED SITE 07/03/2012 787.03 vomiting 07/03/2012 789.00 ABDOMINAL PAIN UNSPECIFIED SITE 07/03/2012 787.03 vomiting 07/03/2012 789.00 ABDOMINAL PAIN UNSPECIFIED SITE 07/03/2012 SHADIA BECKER, GARY 787.03 vomiting 07/03/2012 SHADIA BECKER, GARY 789.00 ABDOMINAL PAIN UNSPECIFIED SITE 07/03/2012 REFUGIO COMMERCIAL LOAN ANALYST, LIDIA A 787.03 vomiting 07/03/2012 REFUGIO COMMERCIAL LOAN ANALYST, LIDIA A 789.00 ABDOMINAL PAIN UNSPECIFIED SITE 07/03/2012 REFUGIO COMMERCIAL LOAN ANALYST, LIDIA A 787.03 vomiting 07/03/2012 REFUGIO COMMERCIAL LOAN ANALYST, LIDIA A 789.00 ABDOMINAL PAIN UNSPECIFIED SITE 07/03/2012 REFUGIO COMMERCIAL LOAN ANALYST, LIDIA A 787.03 VOMITING 07/03/2012 REFUGIO COMMERCIAL LOAN ANALYST, LIDIA A 789.00 ABDOMINAL PAIN UNSPECIFIED SITE 07/03/2012 REFUGIO COMMERCIAL LOAN ANALYST, LIDIA A 787.03 VOMITING 07/03/2012 REFUGIO COMMERCIAL LOAN ANALYST, LIDIA A 789.00 ABDOMINAL PAIN UNSPECIFIED SITE 07/03/2012 REFUGIO COMMERCIAL LOAN ANALYST, LIDIA A 787.03 VOMITING 07/03/2012 REFUGIO COMMERCIAL LOAN ANALYST, LIDIA A 789.00 ABDOMINAL PAIN UNSPECIFIED SITE 07/03/2012 REFUGIO COMMERCIAL LOAN ANALYST, LIDIA A 787.03 VOMITING 07/03/2012 REFUGIO COMMERCIAL LOAN ANALYST, LIDIA A 789.00 ABDOMINAL PAIN UNSPECIFIED SITE 07/03/2012 AZAEL BECKER, RAYMUNDO 787.03 VOMITING 07/03/2012 AZAEL BECKER, RAYMUNDO 789.00 ABDOMINAL PAIN UNSPECIFIED SITE 07/03/2012 LUEVANO MIKE GARSIA K 787.03 VOMITING 07/03/2012 LUEVANO SHAWN GARSIAA K 789.00 ABDOMINAL PAIN UNSPECIFIED SITE 07/03/2012 REFUGIO COMMERCIAL LOAN ANALYST, LIDIA A 787.03 VOMITING 07/03/2012 REFUGIO COMMERCIAL LOAN ANALYST, LIDIA A 789.00 ABDOMINAL PAIN UNSPECIFIED SITE 07/03/2012 LUEVANO DO, MIKE K 787.03 VOMITING 07/03/2012 LUEVANO DO, MIKE K 789.00 ABDOMINAL PAIN UNSPECIFIED SITE 07/03/2012 LUEVANO DO, MIKE K 787.03 VOMITING 07/03/2012 LUEVANO DO, MIKE K 789.00 ABDOMINAL PAIN UNSPECIFIED SITE 07/03/2012 REFUGIO COMMERCIAL LOAN ANALYST, LIDIA A 787.03 VOMITING 07/03/2012 REFUGIO COMMERCIAL LOAN ANALYST, LIDIA A 789.00 ABDOMINAL PAIN UNSPECIFIED SITE 09/08/2012 614.3 ACUTE PARAMETRITIS AND PELVIC CELLULITIS 09/08/2012 LUEVANO DO, MIKE K 614.3 ACUTE PARAMETRITIS AND PELVIC CELLULITIS 09/08/2012 614.3 ACUTE PARAMETRITIS AND PELVIC CELLULITIS 09/08/2012 614.3 ACUTE PARAMETRITIS AND PELVIC CELLULITIS 09/08/2012 614.3 ACUTE PARAMETRITIS AND PELVIC CELLULITIS 09/08/2012 SHADIA BECKER, GARY 614.3 ACUTE PARAMETRITIS AND PELVIC CELLULITIS 09/08/2012 REFUGIO TON, LIDIA A 614.3 ACUTE PARAMETRITIS AND PELVIC CELLULITIS 09/08/2012 REFUGIO COMMERCIAL LOAN ANALYST, LIDIA A 614.3 ACUTE PARAMETRITIS AND PELVIC CELLULITIS 09/08/2012 REFUGIO COMMERCIAL LOAN ANALYST, LIDIA A 614.3 ACUTE PARAMETRITIS AND PELVIC CELLULITIS 09/08/2012 REFUGIO COMMERCIAL LOAN ANALYST, LIDIA A 614.3 ACUTE PARAMETRITIS AND PELVIC CELLULITIS 09/08/2012 REFUGIO COMMERCIAL LOAN ANALYST, LIDIA A 614.3 ACUTE PARAMETRITIS AND PELVIC CELLULITIS 09/08/2012 REFUGIO COMMERCIAL LOAN ANALYST, LIDIA A 614.3 ACUTE PARAMETRITIS AND PELVIC CELLULITIS 09/08/2012 AZAEL BECKER, RAYMUNDO 614.3 ACUTE PARAMETRITIS AND PELVIC CELLULITIS 09/08/2012 LUEVANO DO, MIKE K 614.3 ACUTE PARAMETRITIS AND PELVIC CELLULITIS 09/08/2012 REFUGIO TON, LIDIA A 614.3 ACUTE PARAMETRITIS AND PELVIC CELLULITIS 09/08/2012 SHAWN LUEVANO DOA K 614.3 ACUTE PARAMETRITIS AND PELVIC CELLULITIS 09/08/2012 CHLOÉ GARSIA MIKE K 614.3 ACUTE PARAMETRITIS AND PELVIC CELLULITIS 09/08/2012 REFUGIO APRN, LIDIA A 614.3 ACUTE PARAMETRITIS AND PELVIC CELLULITIS 09/18/2012 CHLOÉ GARSIA MIKE K 008.8 GASTROENTERITIS, VIRAL 09/18/2012 008.8 GASTROENTERITIS, VIRAL 09/18/2012 008.8 GASTROENTERITIS, VIRAL 09/18/2012 008.8 GASTROENTERITIS, VIRAL 09/18/2012 SHADIA BECKER, GARY 008.8 GASTROENTERITIS, VIRAL 09/18/2012 REFUGIO COMMERCIAL LOAN ANALYST, LIDIA A 008.8 GASTROENTERITIS, VIRAL 09/18/2012 REFUGIO COMMERCIAL LOAN ANALYST, LIDIA A 008.8 GASTROENTERITIS, VIRAL 09/18/2012 REFUGIO COMMERCIAL LOAN ANALYST, LIDIA A 008.8 GASTROENTERITIS, VIRAL 09/18/2012 REFUGIO COMMERCIAL LOAN ANALYST, LIDIA A 008.8 GASTROENTERITIS, VIRAL 09/18/2012 REFUGIO COMMERCIAL LOAN ANALYST, LIDIA A 008.8 GASTROENTERITIS, VIRAL 09/18/2012 REFUGIO COMMERCIAL LOAN ANALYST, LIDIA A 008.8 GASTROENTERITIS, VIRAL 09/18/2012 AZAEL BECKER, RAYMUNDO 008.8 GASTROENTERITIS, VIRAL 09/18/2012 CHLOÉ GARSIA MIKE K 008.8 GASTROENTERITIS, VIRAL 09/18/2012 REFUGIO COMMERCIAL LOAN ANALYST, LIDIA A 008.8 GASTROENTERITIS, VIRAL 09/18/2012 CHLOÉ GARSIA MIKE K 008.8 GASTROENTERITIS, VIRAL 09/18/2012 CHLOÉ GARSIA MIKE K 008.8 GASTROENTERITIS, VIRAL 09/18/2012 REFUGIO COMMERCIAL LOAN ANALYST, LIDIA A 008.8 GASTROENTERITIS, VIRAL 10/02/2012 465.9 UPPER RESPIRATORY INFECTION 10/02/2012 465.9 UPPER RESPIRATORY INFECTION 10/02/2012 465.9 UPPER RESPIRATORY INFECTION 10/02/2012 SHADIA BECKER, GARY 465.9 UPPER RESPIRATORY INFECTION 10/02/2012 JOSEFINA HUFF APRNIDI A 465.9 UPPER RESPIRATORY INFECTION 10/02/2012 REFUGIO TON, LIDIA A 465.9 UPPER RESPIRATORY INFECTION 10/02/2012 REFUGIO MEDINA, LIDIA A 465.9 UPPER RESPIRATORY INFECTION 10/02/2012 REFUGIO TON, LIDIA A 465.9 UPPER RESPIRATORY INFECTION 10/02/2012 REFUGIO COMMERCIAL LOAN ANALYST, LIDIA A 465.9 UPPER RESPIRATORY INFECTION 10/02/2012 REFUGIO COMMERCIAL LOAN ANALYST, LIDIA A 465.9 UPPER RESPIRATORY INFECTION 10/02/2012 AZAEL BECKER, RAYMUNDO 465.9 UPPER RESPIRATORY INFECTION 10/02/2012 LUEVANO DO, MIEK K 465.9 UPPER RESPIRATORY INFECTION 10/02/2012 REFUGIO COMMERCIAL LOAN ANALYST, LIDIA A 465.9 UPPER RESPIRATORY INFECTION 10/02/2012 LUEVANO DO, MIKE K 465.9 UPPER RESPIRATORY INFECTION 10/02/2012 LUEVANO DO, IMKE K 465.9 UPPER RESPIRATORY INFECTION 10/02/2012 REFUGIO COMMERCIAL LOAN ANALYST, LIDIA A 465.9 UPPER RESPIRATORY INFECTION 01/09/2013 459.89 Ecchymosis 01/09/2013 459.89 Ecchymosis 01/09/2013 SHADIA BECKER, GARY 459.89 Ecchymosis 01/09/2013 REFUGIO COMMERCIAL LOAN ANALYST, LIDIA A 459.89 Ecchymosis 01/09/2013 REFUGIO COMMERCIAL LOAN ANALYST, LIDIA A 459.89 Ecchymosis 01/09/2013 REFUGIO COMMERCIAL LOAN ANALYST, LIDIA A 459.89 Ecchymosis 01/09/2013 REFUGIO COMMERCIAL LOAN ANALYST, LIDIA A 459.89 Ecchymosis 01/09/2013 REFUGIO COMMERCIAL LOAN ANALYST, LIDIA A 459.89 Ecchymosis 01/09/2013 REFUGIO COMMERCIAL LOAN ANALYST, LIDIA A 459.89 Ecchymosis 01/09/2013 AZAEL BECKER, RAYMUNDO 459.89 Ecchymosis 01/09/2013 LUEVANO DO, MIKE K 459.89 Ecchymosis 01/09/2013 REFUGIO COMMERCIAL LOAN ANALYST, LIDIA A 459.89 Ecchymosis 01/09/2013 LUEVANO DO, MIKE K 459.89 Ecchymosis 01/09/2013 LUEVANO DO, MIKE K 459.89 Ecchymosis 01/09/2013 REFUGIO COMMERCIAL LOAN ANALYST, LIDIA A 459.89 Ecchymosis 02/20/2013 477.0 ALLERGIC RHINITIS DUE TO POLLEN 02/20/2013 477.0 ALLERGIC RHINITIS DUE TO POLLEN 02/20/2013 SHADIA BECKER, GARY 477.0 ALLERGIC RHINITIS DUE TO POLLEN 02/20/2013 REFUGIO COMMERCIAL LOAN ANALYST, LIDIA A 477.0 ALLERGIC RHINITIS DUE TO POLLEN 02/20/2013 REFUGIO COMMERCIAL LOAN ANALYST, LIDIA A 477.0 ALLERGIC RHINITIS DUE TO POLLEN 02/20/2013 REFUGIO COMMERCIAL LOAN ANALYST, LIDIA A 477.0 ALLERGIC RHINITIS DUE TO POLLEN 02/20/2013 REFUGIO COMMERCIAL LOAN ANALYST, LIDIA A 477.0 ALLERGIC RHINITIS DUE TO POLLEN 02/20/2013 REFUGIO COMMERCIAL LOAN ANALYST, LIDIA A 477.0 ALLERGIC RHINITIS DUE TO POLLEN 02/20/2013 REFUGIO COMMERCIAL LOAN ANALYST, LIDIA A 477.0 ALLERGIC RHINITIS DUE TO POLLEN 02/20/2013 AZAEL BECKER, RAMYUNDO 477.0 ALLERGIC RHINITIS DUE TO POLLEN 02/20/2013 LUEVANO DO, MIKE K 477.0 ALLERGIC RHINITIS DUE TO POLLEN 02/20/2013 REFUGIO COMMERCIAL LOAN ANALYST, LIDIA A 477.0 ALLERGIC RHINITIS DUE TO POLLEN 02/20/2013 LUEVANO DO, MIKE K 477.0 ALLERGIC RHINITIS DUE TO POLLEN 02/20/2013 LUEVANO DO, MIKE K 477.0 ALLERGIC RHINITIS DUE TO POLLEN 02/20/2013 REFUGIO COMMERCIAL LOAN ANALYST, LIDIA A 477.0 ALLERGIC RHINITIS DUE TO POLLEN 03/03/2013 V25.02 CONTRACEPTION - ANY METHOD 03/03/2013 SHADIA BECKER, GARY V25.02 CONTRACEPTION - ANY METHOD 03/03/2013 REFUGIO COMMERCIAL LOAN ANALYST, LIDIA A V25.02 CONTRACEPTION - ANY METHOD 03/03/2013 REFUGIO COMMERCIAL LOAN ANALYST, LIDIA A V25.02 CONTRACEPTION - ANY METHOD 03/03/2013 REFUGIO COMMERCIAL LOAN ANALYST, LIDIA A V25.02 CONTRACEPTION - ANY METHOD 03/03/2013 REFUGIO COMMERCIAL LOAN ANALYST, LIDIA A V25.02 CONTRACEPTION - ANY METHOD 03/03/2013 REFUGIO COMMERCIAL LOAN ANALYST, LIDIA A V25.02 CONTRACEPTION - ANY METHOD 03/03/2013 REFUGIO COMMERCIAL LOAN ANALYST, LIDIA A V25.02 CONTRACEPTION - ANY METHOD 03/03/2013 AZAEL BECKER, RAYMUNDO V25.02 CONTRACEPTION - ANY METHOD 03/03/2013 LUEVANO MIKE GARSIA V25.02 CONTRACEPTION - ANY METHOD 03/03/2013 REFUGIO COMMERCIAL LOAN ANALYST, LIDIA A V25.02 CONTRACEPTION - ANY METHOD 03/03/2013 MIKE LUEVAON DO V25.02 CONTRACEPTION - ANY METHOD 03/03/2013 LUEVANO DO, MIKE K V25.02 CONTRACEPTION - ANY METHOD 03/03/2013 REFUGIO COMMERCIAL LOAN ANALYST, LIDIA A V25.02 CONTRACEPTION - ANY METHOD 04/04/2013 REED BECKER, OLIVE Rojas Ot 558.9 NONINF GASTROENTERIT NEC 04/04/2013 OLIVE MCBRIDE MD Ot 787.01 NAUSEA WITH VOMITING 04/15/2013 SHADIA BECKER, GARY V04.81 FLU SHOT 04/15/2013 REFUGIO COMMERCIAL LOAN ANALYST, LIDIA A V04.81 FLU SHOT 04/15/2013 REFUGIO COMMERCIAL LOAN ANALYST, LIDIA A V04.81 FLU SHOT 04/15/2013 REFUGIO COMMERCIAL LOAN ANALYST, LIDIA A V04.81 FLU SHOT 04/15/2013 REFUGIO COMMERCIAL LOAN ANALYST, LIDIA A V04.81 FLU SHOT 04/15/2013 REFUGIO COMMERCIAL LOAN ANALYST, LIDIA A V04.81 FLU SHOT 04/15/2013 REFUGIO COMMERCIAL LOAN ANALYST, LIDIA A V04.81 FLU SHOT 04/15/2013 RAYMUNDO ADDISON MD V04.81 FLU SHOT 04/15/2013 LUEVANO DO, MIKE K V04.81 FLU SHOT 04/15/2013 REFUGIO COMMERCIAL LOAN ANALYST, LIDIA A V04.81 FLU SHOT 04/15/2013 LUEVANO DO, MIKE K V04.81 FLU SHOT 04/15/2013 LUEVANO DO, MIKE K V04.81 FLU SHOT 04/15/2013 REFUGIO COMMERCIAL LOAN ANALYST, LIDIA A V04.81 FLU SHOT 05/06/2013 LOBITO MEDINA COMMERCIAL LOAN ANALYST Ot 708.9 URTICARIA NOS 05/06/2013 LBOITO MEDINA COMMERCIAL LOAN ANALYST Ot 782.1 NONSPECIF SKIN ERUPT NEC 06/13/2013 LOBITO MEDINA COMMERCIAL LOAN ANALYST Ot 276.8 HYPOPOTASSEMIA 06/13/2013 LOBITO MEDINA COMMERCIAL LOAN ANALYST Ot 787.01 NAUSEA WITH VOMITING 06/28/2013 OLEGARIO BENNETT Ot 599.0 URIN TRACT INFECTION NOS 06/28/2013 OLEGARIO BENNETT Ot 623.5 NONINFECT VAG LEUKORRHEA 06/28/2013 OLEGARIO BENNETT Ot 789.00 ABDOMINAL PAIN, UNSPECIFIED SITE 08/06/2013 BONILLA BECKER, RAMANDEEP Ch Ot 789.09 ABDOMINAL PAIN, OTHER SPECIFIED SITE 08/07/2013 ZACHERY BECKER, RADHA Dao Ot 599.70 HEMATURIA, UNSPECIFIED 08/07/2013 ZACHERY BECKER, RADHA Dao Ot 789.00 ABDOMINAL PAIN, UNSPECIFIED SITE 10/08/2013 REFUGIO COMMERCIAL LOAN ANALYST, LIDIA A 788.1 DYSURIA 10/08/2013 REFUGIO COMMERCIAL LOAN ANALYST, LIDIA A V72.41 TEST NEGATIVE RESULT 10/08/2013 REFUGIO COMMERCIAL LOAN ANALYST, LIDIA A 788.1 DYSURIA 10/08/2013 REFUGIO COMMERCIAL LOAN ANALYST, LIDIA A V72.41 TEST NEGATIVE RESULT 10/08/2013 REFUGIO COMMERCIAL LOAN ANALYST, LIDIA A 788.1 DYSURIA 10/08/2013 REFUGIO COMMERCIAL LOAN ANALYST, ILDIA A V72.41 TEST NEGATIVE RESULT 10/08/2013 AZAEL BECKER, RAYMUNDO 788.1 DYSURIA 10/08/2013 DANIEL ADDISON MDISTA V72.41 TEST NEGATIVE RESULT 10/08/2013 LUEVANO DO, MIKE K 788.1 DYSURIA 10/08/2013 LUEVANO DO, MIKE K V72.41 TEST NEGATIVE RESULT 10/08/2013 REFUGIO COMMERCIAL LOAN ANALYST, LIDIA A 788.1 DYSURIA 10/08/2013 REFUGIO COMMERCIAL LOAN ANALYST, LIDIA A V72.41 TEST NEGATIVE RESULT 10/08/2013 LUEVANO DO, MIKE K 788.1 DYSURIA 10/08/2013 LUEVANO DO, MIKE K V72.41 TEST NEGATIVE RESULT 10/08/2013 LUEVANO DO, MIKE K 788.1 DYSURIA 10/08/2013 LUEVANO DO, MIKE K V72.41 TEST NEGATIVE RESULT 10/08/2013 REFUGIO COMMERCIAL LOAN ANALYST, LIDIA A 788.1 DYSURIA 10/08/2013 REFUGIO COMMERCIAL LOAN ANALYST, LIDIA A V72.41 TEST NEGATIVE RESULT 12/01/2013 AZAEL BECKER, RAYMUNDO 477.0 ALLERGIC RHINITIS - POLLEN 12/01/2013 AZAEL BECKER, RAYMUNDO 914.0 ABRASION OR FRICTION BURN OF HAND(S) EXCEPT FINGER(S) ALONE WITHOUT INFECTION 12/01/2013 LUEVANO DO, MIKE K 477.0 ALLERGIC RHINITIS - POLLEN 12/01/2013 LUEVANO DO, MIKE K 914.0 ABRASION OR FRICTION BURN OF HAND(S) EXCEPT FINGER(S) ALONE WITHOUT INFECTION 12/01/2013 REFUGIO TONJOSEFINALIDIA A 477.0 ALLERGIC RHINITIS - POLLEN 12/01/2013 REFUGIO TONJOSEFINALIDIA A 914.0 ABRASION OR FRICTION BURN OF HAND(S) EXCEPT FINGER(S) ALONE WITHOUT INFECTION 12/01/2013 LUEVANO DO, MIKE K 477.0 ALLERGIC RHINITIS - POLLEN 12/01/2013 LUEVANO DO, MIKE K 914.0 ABRASION OR FRICTION BURN OF HAND(S) EXCEPT FINGER(S) ALONE WITHOUT INFECTION 12/01/2013 LUEVANO DO, MIKE K 477.0 ALLERGIC RHINITIS - POLLEN 12/01/2013 LUEVANO DO, MIKE K 914.0 ABRASION OR FRICTION BURN OF HAND(S) EXCEPT FINGER(S) ALONE WITHOUT INFECTION 12/01/2013 REFUGIO TOAdy LIDIA A 477.0 ALLERGIC RHINITIS - POLLEN 12/01/2013 REFUGIO TONJOSEFINALIDIA A 914.0 ABRASION OR FRICTION BURN OF HAND(S) EXCEPT FINGER(S) ALONE WITHOUT INFECTION 01/29/2014 OLEGARIO BENNETT Ot 626.2 EXCESSIVE MENSTRUATION 01/29/2014 OLEGARIO BENNETT Ot 789.09 ABDOMINAL PAIN, OTHER SPECIFIED SITE 03/24/2014 SHAWN LUEVANO DOA K 625.8 OTHER SPECIFIED SYMPTOMS ASSOCIATED WITH FEMALE GENITAL ORGANS 03/24/2014 REFUGIO COMMERCIAL LOAN ANALYST, LIDIA A 625.8 OTHER SPECIFIED SYMPTOMS ASSOCIATED WITH FEMALE GENITAL ORGANS 03/24/2014 LUEVANO SHAWN GARSIAA K 625.8 OTHER SPECIFIED SYMPTOMS ASSOCIATED WITH FEMALE GENITAL ORGANS 03/24/2014 SHAWN LUEVANO DOA K 625.8 OTHER SPECIFIED SYMPTOMS ASSOCIATED WITH FEMALE GENITAL ORGANS 03/24/2014 REFUGIOJODIE MEDINA LIDIA A 625.8 OTHER SPECIFIED SYMPTOMS ASSOCIATED WITH FEMALE GENITAL ORGANS 05/31/2014 RAMANDEEP CRYSTAL MD Ot 599.0 URIN TRACT INFECTION NOS 05/31/2014 RAMANDEEP CRYSTAL MD Ot 787.01 NAUSEA WITH VOMITING 05/31/2014 RAMANDEEP CRYSTAL MD Ot 789.00 ABDOMINAL PAIN, UNSPECIFIED SITE 07/21/2014 Ot 789.06 07/21/2014 OLEGARIO BENNETT Ot 487.1 FLU W RESP MANIFEST NEC 07/21/2014 OLEGARIO BENNETT Ot 786.2 COUGH 07/21/2014 OLEGARIO BENNETT Ot 787.01 NAUSEA WITH VOMITING 07/21/2014 OLEGARIO BENNETT Ot 788.41 URINARY FREQUENCY 07/21/2014 Ot 789.06 08/04/2014 CHLOÉ MIKE V74.1 TB SCREENING 08/04/2014 LIDIA HUFF APRN V74.1 TB SCREENING 08/18/2014 LIDIA HUFF APRN A 614.9 UNSPECIFIED INFLAMMATORY DISEASE OF FEMALE PELVIC ORGANS AND TISSUES 09/10/2014 Ot 626.2 EXCESSIVE MENSTRUATION 11/16/2014 Ot 789.06 11/16/2014 RADHA BINGHAM MD Ot 599.0 URIN TRACT INFECTION NOS 11/16/2014 RADHA BINGHAM MD Ot 616.10 VAGINITIS NOS 11/16/2014 RADHA BINGHAM MD Ot 788.1 DYSURIA 11/16/2014 Ot 789.06 11/24/2014 BELA DIXON DO Ot 784.0 HEADACHE 04/05/2015 Ot 789.06 04/05/2015 RADHA BINGHAM MD Ot Z32.00 ENCOUNTER FOR TEST, RESULT UNK 05/03/2015 Ot 789.06 05/03/2015 RAMANDEEP CRYSTAL MD Ot F17.210 NICOTINE DEPENDENCE, CIGARETTES, UNCOMPL 05/03/2015 RAMANDEEP CRYSTAL MD Ot N39.0 URINARY TRACT INFECTION, SITE NOT SPECIF 05/03/2015 RAMANDEEP CRYSTAL MD Ot N76.0 ACUTE VAGINITIS 08/30/2016 ALONSO JOSE MD Ot R11.0 NAUSEA 08/30/2016 ALONSO JOSE MD Ot Z53.21 PROC/TRTMT NOT CRD OUT D/T PT [facility] SEE 08/31/2016 ALONSO JOSE MD Ot R11.0 NAUSEA 08/31/2016 ALONSO JOSE MD Ot Z53.21 PROC/TRTMT NOT CRD OUT D/T PT [facility] SEE 09/13/2016 ALONSO JOSE MD Ot R11.0 NAUSEA 09/13/2016 ALONSO JOSE MD Ot Z53.21 PROC/TRTMT NOT CRD OUT D/T PT [facility] SEE 12/02/2016 CHAO PERDUE DO Ot F17.210 NICOTINE DEPENDENCE, CIGARETTES, UNCOMPL 12/02/2016 CHAO PERDUE DO Ot M25.561 PAIN IN RIGHT KNEE Procedures Code [place] [address] HEMOGLOBIN (IN-HOUSE) 06/14/2012 J1055 Depo-Provera Contraceptive 150 mg/mL Suspension 06/14/2012 95415 ROUTINE VENIPUNCTURE 07/02/2012 66019 THERAPUTIC INJ SQ/IM 07/02/2012 J1055 Depo-Provera Contraceptive 150 mg/mL Suspension 07/02/2012 67926 URINE TEST (IN- HOUSE) 07/02/2012 64989 SYPHILLIS-STATE [facility] 07/03/2012 63204 HIV-STATE [facility] 07/03/2012 07602 GC/CHLAM URINE (STATE) 07/03/2012 Maximilian Horn 09/11/2012 91531 THERAPUTIC INJ SQ/IM 10/02/2012 J1050 DEPO PROVERA 10/02/2012 66133 URINE TEST (IN- HOUSE) 10/02/2012 44450 URINE TEST (IN- HOUSE) 03/03/2013 84841 CULTURE UROGENITAL 05/18/2013 36607 GC/CHLAM PROBE (STATE) 05/18/2013 69236 URINE TEST (IN- HOUSE) 05/18/2013 28324 TRICHOMONAS (IN-HOUSE) 05/18/2013 38806 THERAPUTIC INJ SQ/IM 05/27/2013 J1050 DEPO PROVERA 05/27/2013 05345 GC/CHLAM PROBE (STATE) 08/05/2013 18019 TRICHOMONAS (IN-HOUSE) 08/05/2013 44336 CULTURE UROGENITAL 08/07/2013 23938 TEST, URINE (IN- HOUSE) 10/08/2013 68152 SYPHILLIS-[facility] 11/04/2013 77336 HIV (STATE [facility]) 11/04/2013 57746 GC/CHLAM PROBE (STATE) 11/04/2013 56744 TEST, URINE (IN- HOUSE) 11/04/2013 55778 TRICHOMONAS (IN-HOUSE) 11/04/2013 95769 CULTURE UROGENITAL 11/07/2013 34628 TRICHOMONAS (IN-HOUSE) 03/24/2014 78247 CULTURE UROGENITAL 03/25/2014 72917 GC/CHLAM PROBE (STATE) 03/25/2014 30430 ROUTINE VENIPUNCTURE 04/20/2014 34829 SYPHILLIS-STATE [facility] 04/20/2014 79461 HIV (STATE [facility]) 04/20/2014 45198 [facility] 04/20/2014 23333 UA W/ CULTURE IF INDICATED 04/20/2014 28671 TEST, URINE (IN- HOUSE) 04/20/2014 86126 TRICHOMONAS (IN-HOUSE) 04/20/2014 33277 CULTURE UROGENITAL 04/21/2014 32967 TRICHOMONAS (IN-HOUSE) 05/26/2014 88010 TB TEST INTRADERMAL 08/04/2014 Results There is no data. Encounters ACCT No. Visit Date/Time Discharge Status Pt. Type Provider Facility Loc./Unit Complaint [id number] 08/18/2014 09:39:00 08/18/2014 23:59:59 CLS Outpatient LIDIA HUFF APRN [id number] 08/04/2014 17:04:00 08/04/2014 23:59:59 CLS Outpatient MIKE LUEVANO DO [id number] 05/26/2014 16:25:00 05/26/2014 23:59:59 CLS Outpatient MIKE LUEVANO DO [id number] 04/20/2014 09:46:00 04/20/2014 23:59:59 CLS Outpatient LIDIA HUFF APRN [id number] 03/24/2014 17:30:00 03/24/2014 23:59:59 CLS Outpatient MIKE LUEVANO DO [id number] 12/01/2013 16:25:00 12/01/2013 23:59:59 CLS Outpatient AZAEL BECKER, RAYMUNDO [id number] 11/04/2013 08:17:00 11/04/2013 23:59:59 CLS Outpatient LIDIA HUFF APRN [id number] 11/04/2013 08:17:00 11/04/2013 23:59:59 CLS Outpatient LIDIA HUFF APRN [id number] 10/08/2013 15:34:00 10/08/2013 23:59:59 CLS Outpatient LIDIA HUFF APRN [id number] 08/05/2013 17:28:00 08/05/2013 23:59:59 CLS Outpatient LIDIA HUFF APRN [id number] 05/27/2013 09:36:00 05/27/2013 23:59:59 CLS Outpatient LIDIA HUFF APRN [id number] 05/18/2013 17:23:00 05/18/2013 23:59:59 CLS Outpatient LIDIA HUFF APRN [id number] 04/15/2013 11:49:00 04/15/2013 23:59:59 CLS Outpatient GARY RENO MD [id number] 09/18/2012 11:24:00 09/18/2012 23:59:59 CLS Outpatient MIKE LUEVANO DO [id number] 09/08/2012 16:05:00 09/08/2012 23:59:59 CLS Outpatient [id number] 07/03/2012 13:28:00 07/03/2012 23:59:59 CLS Outpatient GARY RENO MD [id number] 07/02/2012 16:15:00 07/02/2012 23:59:59 CLS Outpatient [id number] 06/25/2012 14:36:00 06/25/2012 23:59:59 CLS Outpatient [id number] 06/17/2012 14:46:00 06/17/2012 23:59:59 CLS Outpatient [id number] 06/14/2012 10:15:00 06/14/2012 23:59:59 CLS Outpatient [id number] 03/03/2013 17:57:00 Document Registration [id number] 02/20/2013 10:52:00 Document Registration [id number] 10/02/2012 17:55:00 Document Registration [id number] 07/03/2012 14:52:15 RECURRING [id number] 11/29/2016 23:55:00 11/30/2016 00:46:00 DIS Outpatient CHAO PERDUE DO [facility] ER RT KNEE PAIN [id number] 08/30/2016 13:51:00 08/30/2016 15:39:00 DIS Emergency ALONSO JOSE MD [facility] ER ABD PAIN/NAUSEA [id number] 05/03/2015 00:04:00 05/03/2015 03:55:00 DIS Emergency RAMANDEEP CRYSTAL MD [facility] ER VAGINA SWELLING [id number] 04/05/2015 03:12:00 04/05/2015 03:39:00 DIS Emergency RADHA BINGHAM MD [facility] ER WANTS A BLOOD DRAW PREG TEST [id number] 11/24/2014 01:54:00 11/24/2014 02:34:00 DIS Emergency BELA DIXON DO [facility] ER HEADACHE;VOMITING [id number] 11/16/2014 16:41:00 11/16/2014 17:44:00 DIS Emergency RADHA BINGHAM MD [facility] ER VAGINAL BLEEDING, CRAMPS [id number] 07/21/2014 10:51:00 07/21/2014 13:57:00 DIS Emergency OLEGARIO BENNETT [facility] ER COUGH/FEVER/SORE THROAT/VOMITING [id number] 05/31/2014 01:17:00 05/31/2014 04:12:00 DIS Emergency RAMANDEEP CRYSTAL MD [facility] ER VOMITING [id number] 01/29/2014 12:07:00 01/29/2014 13:41:00 DIS Emergency OLEGARIO BENNETT [facility] ER VAG BLEEDING ABD PAIN/ VOMITING [id number] 08/06/2013 23:01:00 08/07/2013 01:57:00 DIS Emergency RADHA BINGHAM MD [facility] ER BLOOD IN URINE [id number] 08/06/2013 01:32:00 08/06/2013 04:31:00 DIS Emergency RAMANDEEP CRYSTAL MD [facility] ER ABD PAIN [id number] 06/28/2013 18:11:00 06/28/2013 20:38:00 DIS Emergency OLEGARIO BENNETT [facility] ER ABD PAIN [id number] 06/13/2013 15:55:00 06/13/2013 17:28:00 DIS Emergency LOBITO MEDINA APRN [facility] ER VOMITING [id number] 05/06/2013 22:09:00 05/06/2013 22:53:00 DIS Emergency LOBITO MEDINA APRN [facility] ER ALLERGIC REACTION [id number] 04/04/2013 01:23:00 04/04/2013 02:59:00 DIS Emergency OLIVE MCBRIDE MD [facility] ER NAUSEA,VOMITING [id number] 09/09/2014 22:17:00 Document Registration [id number] 08/30/2011 22:00:00 Document Registration [id number] 06/21/2010 07:58:00 Document Registration
== END 2017-08-13 01:59 | disposition left against medical advice (07) ==
LOC: EDUNIT# 01:15 → ER 01:17
DX: R11.10 Vomiting, unspecified (principal)

== ENCOUNTER 2017-11-27 20:25 | Emergency (ER) | payer SELFPAY ==
[~2017-11-27] VITALS: Ht 175.3 cm; Wt 73.9 kg
[~2017-11-27 20:25] MED LIST changes: +NAPR-915 PO; -NAPR500T4 PO
--- OUTSIDE RECORDS SUMMARY | 2017-11-27 20:32 | XMS REPORT ---
Author Author GRIFFITHYOBANY Campa Organization [facility] Address [address] [place] [address] Care Team Providers Care Guide Dog Trainer Name Role Phone YOBANY GRIFFITH Unavailable PROBLEMS Type Condition ICD9-CM Code OWA69-PA Code Onset Dates Condition Status SNOMED Code Problem Routine health maintenance Z00.00 Active 406415684 Problem Tobacco abuse Z72.0 Active 42007299 Problem Alcohol abuse F10.10 Active 77718371 Problem Anxiety F41.9 Active 48950947 Problem Depressive disorder, not elsewhere classified F32.9 Active 96182591 Problem Absence of menstruation N91.2 Active 82815179 Problem Tobacco abuse counseling Z71.6 Active 703344997 Problem Generalized anxiety disorder F41.1 Active 53949093 Problem 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 09061895 Problem Nonspecific abdominal pain R10.9 Active 437502342 Problem IBS (irritable bowel syndrome) K58.9 Active 34766538 Problem Herpes simplex type 2 infection B00.9 Active 498772491 Problem History of PID Z87.42 Active 857708489 Problem Hordeolum external H00.019 Active 7872603 Problem Major depressive disorder, single episode F32.9 Active 74085881 Problem Late menses N91.0 Active 63587914 Problem PCOS (polycystic ovarian syndrome) E28.2 Active 38853888 Problem History of drug dependence/abuse F19.21 Active 3856226 ALLERGIES No Known Allergies ENCOUNTERS Encounter Location Date Diagnosis [facility] [address] [facility] [id number] [address] Aug, [facility] [address] [address] Aug, [facility] [id number] [address] May, [facility] [id number] [place] [address] 44003- 4441 18 Mar, 2017 Vaginal discharge N89.8 and Recurrent candidiasis of vagina B37.3 [place] [id number] [place] [address] 67591- 2704 13 Mar, 2017 Nausea and vomiting in adult R11.2 ; Sore throat J02.9 and Diarrhea, unspecified type R19.7 [place] [id number] [place] [address] 18138- 1327 11 Mar, 2017 [place] [id number] [place] [address] 85561- 7617 14 Jan, 2017 Vaginal discharge N89.8 ; Dysuria R30.0 ; High risk sexual behavior Z72.51 ; Major depressive disorder, single episode F32.9 and Vaginal candidiasis B37.3 [place] [id number] [place] [address] 38240- 4202 03 Jan, 2017 Anxiety F41.9 [place] [id number] [place] [address] 24304- 5491 Dec, [place] [address] [address] Nov, Generalized anxiety disorder F41.1 ; Depressive disorder, not elsewhere classified F32.9 ; History of drug dependence/abuse F19.21 and 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 [place] [id number] [place] [address] 63069- 4907 19 Nov, 2016 Vaginal discharge N89.8 ; High risk sexual behavior Z72.51 ; Potential exposure to STD Z20.2 and Vaginal candidiasis B37.3 [place] [id number] [place] [address] 54204- 0151 16 Nov, 2016 History of drug dependence/abuse F19.21 and Major depressive disorder, single episode F32.9 [place] [id number] [place] [address] 00664- 0949 02 Nov, 2016 Right medial knee pain M25.561 [facility] [id number] [place] [address] 40654- 4479 October, Nausea and vomiting, intractability of vomiting not specified, unspecified vomiting type R11.2 and Acute pyelonephritis N10 [facility] [id number] [place] [address] 25805- 4286 Sep, Major depressive disorder, single episode F32.9 ; Alcohol abuse F10.10 and Tobacco abuse Z72.0 [facility] [id number] [place] [address] 57977- 3971 Sep, Major depressive disorder, single episode F32.9 ; Alcohol abuse F10.10 and History of drug dependence/abuse F19.21 [facility] [id number] [place] [address] 98507- 5495 Sep, Major depressive disorder, single episode F32.9 [facility] [address] [address] Aug, Acute cystitis with hematuria N30.01 and Dysuria R30.0 [place] [address] [address]- [address]184 Aug, Dysuria R30.0 ; Vaginal candidiasis B37.3 ; Vaginal discharge N89.8 and High risk sexual behavior Z72.51 [place] [id number] [place] [address] 44165- 4179 Jul, [facility] [address] [address]- 8098 Jul, Major depressive disorder, single episode F32.9 ; History of drug dependence/abuse F19.21 ; Alcohol abuse F10.10 and Tobacco abuse Z72.0 [facility] [id number] [place] [address] [id number] May, Dental examination Z01.20 and Dental caries K02.9 [place] [id number] [place] [address] 25195- 7822 May, Fatigue, unspecified type R53.83 and Cough R05 [facility] [address] [place] [address] 12257- 8006 May, [facility] [id number] [place] [address] 58937- 6404 Mar, [facility] [address] [place] [address] 87044- 5490 Mar, [facility] [id number] [place] [address] 22787- 9382 Mar, [facility] [id number] [place] [address] 38108- 9604 Mar, [facility] [id number] [place] [address] 88845- 8230 Mar, Absence of menstruation N91.2 ; Vagina itching L29.8 ; History of drug dependence/abuse F19.21 ; History of PID Z87.42 and Acute cystitis without hematuria N30.00 [facility] [address] [place] [address] 75240- 7861 Sep, Routine health maintenance Z00.00 ; Late menses N91.0 ; History of drug dependence/abuse F19.21 ; Alcohol abuse F10.10 ; Tobacco abuse Z72.0 ; Tobacco abuse counseling Z71.6 and Back pain M54.9 [facility] [address] [place] [address] [id number] Aug, Dental examination Z01.20 and Dental caries K02.9 [facility] [address], [place] [address] Jul, [facility] [id number] [place] [address] 23068- 2217 Jul, Surveillance of contraceptive injection Z30.42 [facility] [address], [place] [address] 9[address] 13 Jul, 2015 Routine screening for STI (sexually transmitted infection) Z11.3 ; Drug use F19.90 ; Counseling on substance use and abuse Z71.89 ; Unprotected sexual intercourse Z72.51 ; Encounter for counseling regarding contraception Z30.9 ; Vaginal discharge N89.8 and Skin lesions L98.9 [facility] [id number] [place] [address] 89473- 0780 30 May, 2015 [facility] [id number] [place] [address] 33491- 6216 May, Yeast infection B37.9 [facility] [id number] [place] [address] 70265- 0727 19 May, 2015 Excessive and frequent menstruation with irregular cycle N92.1 ; Other fatigue R53.83 ; General counseling and advice for contraceptive management Z30.09 ; Evaluation for contraceptive injection Z30.013 ; Cough R05 ; Vaginal irritation N89.8 and Dizziness R42 [facility] [id number] [place] [address] 79556- 0462 14 Sep, 2014 [facility] [id number] [place] [address] 02018- 5086 Sep, [facility] [id number] [place] [address] 02645- 1469 Aug, [facility] [id number] [place] [address] 26209- 6576 Aug, [facility] [id number] [place] [address] 99512- 3011 Aug, [facility] [id number] [place] [address] 35845- 6460 Aug, [facility] [id number] [place] [address] 45391- 4815 Aug, [facility] [id number] [place] [address] [phone] 1719 Aug, [facility] [id number] [place] [address] 69134- 6469 Aug, [facility] [place] [facility] [address] [id number] [place] [address]- 5244 Aug, 2014 [facility] [place] [facility] [address] [id number] [place] [address]- 3684 Aug, 2014 [facility] [place] [facility] [address] [id number] [place] [address]- 7446 Aug, 2014 [facility] [place] [facility] [address] [id number] [place] [address]- 8996 Aug, [facility] [place] [facility] [address] [id number] [place] [address]- 2971 Aug, [facility] [place] [facility] [address] [id number] [place] [address]- 5019 Jul, [facility] [place] [facility] [address] [id number] [place] [address]- 4443 Jul, [facility] [place] [facility] [address] [id number] [place] [address]- 4806 May, [facility] [place] [facility] [address] [id number] [place] [address]- 4169 May, [facility] [place] [facility] [address] [id number] [place] [address]- 9946 May, [facility] [place] [facility] [address] [id number] [place] [address]- 3383 May, [facility] [place] [facility] [address] [id number] [place] [address]- 7414 Mar, [facility] [place] [facility] [address] [id number] [place] [address]- 7611 Mar, [facility] [place] [facility] [address] [id number] [place] [address]- 5830 Mar, [facility] [place] [facility] [address] [id number] [place] [address]- 8308 Mar, [facility] [place] [facility] [address] [id number] [place] [address]- 8847 Mar, [facility] [place] [facility] [address] [id number] [place] [address]- 6787 Mar, [facility] [place] [facility] [address] [id number] [place] [address]- 9885 Mar, [facility] [place] [facility] [address] [id number] [place] [address]- 0828 Mar, [facility] [place] [facility] [address] [id number] [place] [address]- 7944 Mar, [facility] [place] [facility] [address] [id number] [place] [address]- 6397 Mar, [facility] [place] [facility] [address] [id number] [place] [address]- 7399 Jan, [facility] [place] [facility] [address] [id number] [place] [address]- 0193 Jan, [facility] [place] [facility] [address] [id number] [place] [address]- 7435 Nov, [facility] [place] [facility] [address] [id number] [place] [address]- 2537 Nov, [facility] [place] [facility] [address] [id number] [place] [address]- 0945 October, [facility] [place] [facility] [address] [id number] [place] [address]- 1085 October, [facility] [place] [facility] [address] [id number] [place] [address]- 1929 October, [facility] [place] [facility] [address] [id number] [place] [address]- 6529 October, [facility] [place] [facility] [address] [id number] [place] [address]- 9815 October, [facility] [place] [facility] [address] [id number] [place] [address]- 4438 October, [facility] [place] [facility] [address] [id number] [place] [address]- 5622 October, [facility] [place] [facility] [address] [id number] [place] [address]- 9178 October, [facility] [place] [facility] [address] [id number] [place] [address]- 8419 Sep, [facility] [place] [facility] [address] [id number] [place] [address]- 7907 Sep, [facility] [place] [facility] [address] [id number] [place] [address]- 0343 Aug, [facility] [place] [facility] [address] [id number] [place] [address]- 5083 Aug, [facility] [place] [facility] [address] [id number] [place] [address]- 8715 Aug, [facility] [place] [facility] [address] [id number] [place] [address]- 3508 Aug, [facility] [place] [facility] [address] [id number] [place] [address]- 4204 May, [facility] [place] [facility] [address] [id number] [place] [address]- 9872 May, [facility] [place] [facility] [address] [id number] [place] [address]- 5632 May, [facility] [place] [facility] [address] [id number] [place] [address]- 5641 May, [facility] [place] [facility] [address] [id number] [place] [address]- 3336 May, [facility] [place] [facility] [address] [id number] [place] [address]- 1949 May, [facility] [place] [facility] [address] [id number] [place] [address]- 3651 May, [facility] [place] [facility] [address] [id number] [place] [address]- 1170 May, [facility] [address] [id number] [place] [address]- 4750 Mar, [facility] [place] [facility] [address] [id number] [place] [address]- 7386 Mar, [facility] [place] [facility] [address] [id number] [place] [address] 2544 Mar, [facility] [place] [facility] [address] [id number] [place] [address]- 7264 Jan, [facility] [place] [facility] [address] [id number] [place] [address]- 4840 Jan, [facility] [place] [facility] [address] [id number] [place] [address]- 3252 Dec, [facility] [place] [facility] [address] [id number] [place] [address]- 7037 Dec, [facility] [place] [facility] [address] [id number] [place] [address]- 3882 Dec, [facility] [place] [facility] [address] [id number] [place] [address]- 6780 Sep, [facility] [place] [facility] [address] [id number] [place] [address]- 1495 Aug, [facility] [place] [facility] [address] [id number] [place] [address]- 6067 Aug, [facility] [place] [facility] [address] [id number] [place] [address]- 1332 18 Aug, 2012 [facility] [place] [facility] [address] [id number] [place] [address]- 1718 15 Aug, 2012 [facility] [place] [facility] [address] [id number] [place] [address]- 4238 14 Aug, 2012 [facility] [place] [facility] [address] [id number] [place] [address]- 5174 11 Aug, 2012 [facility] [place] [facility] [address] [id number] [place] [address]- 2025 16 Jul, 2012 [facility] [address] [id number] [place] [address]- 5303 15 Jul, 2012 [facility] [place] [facility] [address] [id number] [place] [address]- 7336 Jul, [facility] [address] [id number] [place] [address]- 9841 Jul, [facility] [address] [id number] [place] [address]- 3591 Jul, [facility] [address] [id number] [place] [address]- 1218 Jul, [facility] [address] [id number] [place] [address]- 7642 May, [facility] [address] [id number] [place] [address]- 8793 May, [facility] [address] [id number] [place] [address]- 9129 May, [facility] [address] [id number] [place] [address]- 3681 May, [facility] [address] [id number] [place] [address]- 2389 May, [facility] [address] [id number] [place] [address]- 3678 May, [facility] [address] [id number] [place] [address]- 1651 Mar, [facility] [place] [facility] [address] [id number] [place] [address]- 0022 Mar, [facility] [address] [id number] [place] [address]- 6380 Mar, [facility] [address] [id number] [place] [address]- 9777 Mar, [facility] [place] [facility] [address] [id number] [place] [address]- 1891 Mar, [facility] [place] [facility] [address] [id number] [place] [address]- 6056 Mar, [facility] [place] [facility] [address] [id number] [place] [address]- 5566 Mar, [facility] [place] [facility] [address] [id number] [place] [address]- 7394 Dec, [facility] [place] [facility] [address] [id number] [place] [address]- 4556 Nov, [facility] [place] [facility] [address] [id number] [place] [address]- 5330 Sep, [facility] [place] [facility] [address] [id number] [place] [address]- 0974 Aug, [facility] [place] [facility] [address] [id number] [place] [address]- 6599 Aug, [facility] [place] [facility] [address] [id number] [place] [address]- 2489 Aug, [facility] [place] [facility] [address] [id number] [place] [address]- 1372 Aug, [facility] [place] [facility] [address] [id number] [place] [address]- 1849 Aug, [facility] [place] [facility] [address] [id number] [place] [address]- 8759 Aug, [facility] [place] [facility] [address] [id number] [place] [address]- 1503 Jul, [facility] [place] [facility] [address] [id number] [place] [address]- 3166 Jul, [facility] [place] [facility] [address] [id number] [place] [address]- 3512 Jul, [facility] [place] [facility] [address] [id number] [place] [address]- 6271 12 May, 2011 [facility] [place] [facility] [address] [id number] [place] [address]- 6973 May, [facility] [place] [facility] [address] [id number] [place] [address]- 5303 Mar, [facility] [place] [facility] [address] [id number] [place] [address]- 3512 24 Mar, 2011 [facility] [place] [facility] [address] [id number] [place] [address]- 4396 Mar, [facility] [place] [facility] [address] [id number] [place] [address]- 1798 10 Mar, 2011 [facility] [place] [facility] [address] [id number] [place] [address]- 0398 Dec, [facility] [place] [facility] [address] [id number] [place] [address]- 7849 14 May, 2010 [facility] [place] [facility] [address] [id number] [place] [address]- 8198 May, [facility] [place] [facility] [address] [id number] [place] [address]- 9822 May, [facility] [place] [facility] [address] [id number] [place] [address]- 1306 14 Mar, 2010 [facility] [place] [facility] [address] [id number] [place] [address]- 1669 14 Mar, 2010 [facility] [place] [facility] [address] [id number] [place] [address]- 7234 Jan, [facility] [place] [facility] [address] [id number] [place] [address]- 7059 Aug, [facility] [place] [facility] [address] [id number] [place] [address]- 0644 May, [facility] [place] [facility] [address] [id number] [place] [address]- 5400 May, [facility] [place] [facility] [id number] [address]- 9645 May, [facility] [address] [place] [address]- 6553 May, [facility] [address] [place] [address]- 1899 May, [facility] [address] 0722 Mar, [facility] [address] [place] [address]- 4538 Jul, [facility] [address] [place] [address]- 6942 May, [facility] [address] [place] [address]- 4391 Mar, [facility] [address] [place] [address]- 9715 Sep, [facility] [id number] [address]- 4523 Jul, IMMUNIZATIONS No Known Immunizations SOCIAL HISTORY Never Assessed REASON FOR VISIT ER f/u rt knee pain -- [facility] PLAN OF CARE Activity Details Follow Up 3 Months Reason:CH VITAL SIGNS Height 66 in 2016-11-30 Weight 171.5 lbs 2016-11-30 Temperature 97.0 degrees Fahrenheit 2016-11-30 Heart Rate 78 bpm 2016-11-30 Respiratory Rate 18 2016-11-30 BMI 27.68 kg/m2 2016-11-30 Blood pressure systolic 110 mmHg 2016-11-30 Blood pressure diastolic 76 mmHg 2016-11-30 MEDICATIONS Medication Instructions Dosage Frequency Start Date End Date Duration Status Celexa 10 mg Orally Once a day 1 tablet 24h Sep, 30 days Active Naproxen Sodium 500MG Orally Once a day 1 tablet 24h Active RESULTS No Results PROCEDURES No Known procedures INSTRUCTIONS MEDICATIONS ADMINISTERED No Known Medications MEDICAL (GENERAL) HISTORY Type Description Date Medical History Attention-deficit hyperactivity disorder Medical History Chlamydial infections Medical History Trichomoniasis Medical History depression Medical History bipolar disorder Medical History Anxiety disorder Medical History Methamphetamine Abuse Medical History Marijuana Dependence Surgical History Myringotomy with ventilating tube insertion Surgical History Tonsillectomy Surgical History Adenoidectomy Hospitalization History Surgery
--- OUTSIDE RECORDS SUMMARY | 2017-11-27 20:32 | XMS REPORT ---
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 Name Role Phone GRIFFITHYOBANY Campa Unavailable PROBLEMS Type Condition ICD9-CM Code IFM80-KV Code Onset Dates Condition Status SNOMED Code Problem IBS (irritable bowel syndrome) K58.9 Active 93990173 Problem Unspecified mood [affective] disorder F39 Active 988059176 Problem Post-traumatic stress disorder, unspecified F43.10 Active 72717876 Problem Tobacco abuse Z72.0 Active 49778149 Problem PCOS (polycystic ovarian syndrome) E28.2 Active 27056484 Problem Irregular menses N92.6 Active 53119940 Problem Tobacco abuse counseling Z71.6 Active 341176058 ALLERGIES No Information ENCOUNTERS Encounter Location Date Diagnosis [facility] [id number] [place] [address] 27721- 1355 October, [facility] [id number] [place] [address] 75045- 5576 October, [facility] [id number] [place] [address] 16444- 5781 Sep, [facility] [id number] [place] [address] 95003- 4205 Sep, Unspecified mood [affective] disorder F39 and Post- traumatic stress disorder, unspecified F43.10 [facility] [id number] [place] [address] 41971- 8929 Aug, PCOS (polycystic ovarian syndrome) E28.2 ; Recurrent major depressive disorder, in full remission F33.42 ; IBS (irritable bowel syndrome) K58.9 and Tobacco abuse Z72.0 [facility] [id number] [place] [address] 66252- 8659 Aug, Generalized anxiety disorder F41.1 and Depressive disorder, not elsewhere classified F32.9 [place] [address] 86109- 5162 Aug, PCOS (polycystic ovarian syndrome) E28.2 ; Recurrent major depressive disorder, in full remission F33.42 ; IBS (irritable bowel syndrome) K58.9 ; Tobacco abuse Z72.0 ; Tobacco abuse counseling Z71.6 ; Dysuria R30.0 ; Irregular menses N92.6 ; Vaginal candidiasis B37.3 and Acute cystitis without hematuria N30.00 [place] [address] 53363- 3163 May, [place] [address] 67779- 9303 18 Mar, 2017 Vaginal discharge N89.8 and Recurrent candidiasis of vagina B37.3 [place] [address] 45403- 1060 13 Mar, 2017 Nausea and vomiting in adult R11.2 ; Sore throat J02.9 and Diarrhea, unspecified type R19.7 [place] [address] 88770- 6548 11 Mar, 2017 [place] [id number] [place] [address] 95355- 4033 14 Jan, 2017 Vaginal discharge N89.8 ; Dysuria R30.0 ; High risk sexual behavior Z72.51 ; Major depressive disorder, single episode F32.9 and Vaginal candidiasis B37.3 [place] [id number] [place] [address] 38658- 6977 Jan, Anxiety F41.9 [place] [address] 58777- 5847 Dec, [place] [address] 72447- 3818 Nov, Generalized anxiety disorder F41.1 ; Depressive disorder, not elsewhere classified F32.9 ; History of drug dependence/abuse F19.21 and 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 [place] [address] 14142- 6646 Nov, Vaginal discharge N89.8 ; High risk sexual behavior Z72.51 ; Potential exposure to STD Z20.2 and Vaginal candidiasis B37.3 [place] [address] 54328- 6119 Nov, History of drug dependence/abuse F19.21 and Major depressive disorder, single episode F32.9 [place] [address] 61195- 7837 Nov, Right medial knee pain M25.561 [place] [address] 45291- 0512 October, Nausea and vomiting, intractability of vomiting not specified, unspecified vomiting type R11.2 and Acute pyelonephritis N10 [place] [address] 25423- 1072 Sep, Major depressive disorder, single episode F32.9 ; Alcohol abuse F10.10 and Tobacco abuse Z72.0 [place] [id number] [place] [address] 55969- 2402 Sep, Major depressive disorder, single episode F32.9 ; Alcohol abuse F10.10 and History of drug dependence/abuse F19.21 [place] [id number] [place] [address] 31443- 9294 Sep, Major depressive disorder, single episode F32.9 [facility] [address] 80898 -5161 Aug, Acute cystitis with hematuria N30.01 and Dysuria R30.0 [place] [address] 55517- 2657 Aug, Dysuria R30.0 ; Vaginal candidiasis B37.3 ; Vaginal discharge N89.8 and High risk sexual behavior Z72.51 [facility] [id number] [place] [address] 92391- 8065 Jul, [facility] [address] 08470- 1093 Jul, Major depressive disorder, single episode F32.9 ; History of drug dependence/abuse F19.21 ; Alcohol abuse F10.10 and Tobacco abuse Z72.0 [facility] [facility] [address] [id number] May, Dental examination Z01.20 and Dental caries K02.9 [place] [address] 03068- 2506 May, Fatigue, unspecified type R53.83 and Cough R05 [place] [address] 80965- 9560 May, [place] [address] 79180- 5734 Mar, [place] [address] 41383- 8334 Mar, [place] [address] 08967- 8211 Mar, [place] [id number] [place] [address] 98529- 2640 Mar, [place] [address] 76181- 3825 Mar, Absence of menstruation N91.2 ; Vagina itching L29.8 ; History of drug dependence/abuse F19.21 ; History of PID Z87.42 and Acute cystitis without hematuria N30.00 [facility] [id number] [place] [address] 54352- 1404 Sep, Routine health maintenance Z00.00 ; Late menses N91.0 ; History of drug dependence/abuse F19.21 ; Alcohol abuse F10.10 ; Tobacco abuse Z72.0 ; Tobacco abuse counseling Z71.6 and Back pain M54.9 [facility] [facility] [id number] [place] [address] [id number] 18 Aug, 2015 Dental examination Z01.20 and Dental caries K02.9 [place] [id number] [place] [address] 91438- 5745 26 Jul, 2015 [place] [address] 58130- 3593 Jul, Surveillance of contraceptive injection Z30.42 [place] [id number] [place] [address] 92146- 4533 13 Jul, 2015 Routine screening for STI (sexually transmitted infection) Z11.3 ; Drug use F19.90 ; Counseling on substance use and abuse Z71.89 ; Unprotected sexual intercourse Z72.51 ; Encounter for counseling regarding contraception Z30.9 ; Vaginal discharge N89.8 and Skin lesions L98.9 [place] [id number] [place] [address] 07137- 1964 30 May, 2015 [place] [id number] [place] [address] 69904- 3451 May, Yeast infection B37.9 [place] [id number] [place] [address] 40748- 6698 19 May, 2015 Excessive and frequent menstruation with irregular cycle N92.1 ; Other fatigue R53.83 ; General counseling and advice for contraceptive management Z30.09 ; Evaluation for contraceptive injection Z30.013 ; Cough R05 ; Vaginal irritation N89.8 and Dizziness R42 [place] [id number] [place] [address] 46263- 2930 Sep, [address] 57595- 2900 Sep, [place] [id number] [place] [address] 03184- 6950 Aug, [place] [address] [place] [address]- 2021 Aug, [facility] [place] [facility] [address] [id number] [place] [address]- 5829 Aug, [facility] [place] [facility] [address] [id number] [place] [address]- 4311 Aug, [facility] [place] [facility] [address] [id number] [place] [address]- 4221 Aug, [facility] [place] [facility] [address] [id number] [place] [address]- 9023 Aug, [facility] [place] [facility] [address] [id number] [place] [address]- 7829 Aug, [facility] [place] [facility] [address] [id number] [place] [address]- 3938 Aug, [facility] [place] [facility] [address] [id number] [place] [address]- 4085 Aug, [facility] [place] [facility] [address] [id number] [place] [address]- 3560 Aug, [facility] [place] [facility] [address] [id number] [place] [address]- 4608 Aug, [facility] [place] [facility] [address] [id number] [place] [address]- 2959 Aug, [facility] [place] [facility] [address] [id number] [place] [address]- 1662 Jul, [facility] [place] [facility] [address] [id number] [place] [address]- 9267 Jul, [facility] [place] [facility] [address] [id number] [place] 3260 May, [facility] [place] [facility] [address] [id number] [place] [address]- 5001 May, [facility] [place] [facility] [address] [id number] [place] 8101 May, [facility] [place] [facility] [address] [id number] [place] [address]- 1381 May, [facility] [place] [facility] [address] [id number] [place] [address]- 5814 Mar, [facility] [place] [facility] [address] [id number] [place] 3858 Mar, [facility] [place] [facility] [address] [id number] [place] [address]- 3412 Mar, [facility] [place] [facility] [address] [id number] [place] [address]- 4235 Mar, [facility] [place] [facility] [address] [id number] [place] [address]- 1284 Mar, [facility] [place] [facility] [address] [id number] [place] [address]- 4521 Mar, [facility] [place] [facility] [address] [id number] [place] [address]- 1649 Mar, [facility] [place] [facility] [address] [id number] [place] [address]- 6502 Mar, [facility] [place] [facility] [address] [id number] [place] [address]- 0359 Mar, [facility] [place] [facility] [address] [id number] [place] [address]- 7071 Mar, [facility] [place] [facility] [address] [id number] [address]- 9301 Jan, [facility] [place] [facility] [address] [id number] [place] [address]- 7895 Jan, [facility] [place] [facility] [address] [id number] [place] [address]- 8824 Nov, [facility] [place] [facility] [address] [id number] [address]- 5419 Nov, [facility] [place] [facility] [address] [id number] [address]- 1201 October, [facility] [address] [id number] [place] [address]- 3743 October, [facility] [place] [facility] [address] [id number] [place] [address]- 3879 October, [facility] [place] [facility] [address] [id number] [place] [address]- 8076 October, [facility] [place] [facility] [address] [id number] [place] [address]- 0161 October, [facility] [place] [facility] [address] [id number] [place] [address]- 5233 October, [facility] [place] [facility] [address] [id number] [place] [address]- 4091 October, [facility] [place] [facility] [address] [facility] [id number] [place] [address]- 0531 October, [facility] [place] [facility] [address] [id number] [place] [address]- 0745 Sep, [facility] [place] [facility] [address] [id number] [place] [address]- 5741 Sep, [facility] [place] [facility] [address] [facility] [id number] [place] [address]- 6579 Aug, [facility] [place] [facility] [address] [id number] [place] [address]- 1226 Aug, [facility] [place] [facility] [address] [id number] [place] [address]- 1407 Aug, [facility] [place] [facility] [address] [id number] [place] [address]- 5920 Aug, [facility] [place] [facility] [address] [id number] [place] 1414 May, [facility] [place] [facility] [address] [id number] [place] [address]- 3412 May, [facility] [place] [facility] [address] [id number] [place] [address]- 4851 May, [facility] [place] [facility] [address] [id number] [place] [address]- 3548 May, [facility] [place] [facility] [address] [id number] [place] [address]- 4360 May, [facility] [place] [facility] [address] [id number] [place] [address]- 0561 May, [facility] [place] [facility] [address] [id number] [place] [address]- 5064 May, [facility] [place] [facility] [address] [id number] [place] [address]- 8270 May, [facility] [place] [facility] [address] [id number] [place] [address]- 4433 Mar, [facility] [place] [facility] [address] [id number] [place] [address]- 7137 Mar, [facility] [place] [facility] [address] [id number] [place] [address]- 1570 Mar, [facility] [place] [facility] [address] [id number] [place] [address]- 3740 Jan, [facility] [place] [facility] [address] [id number] [place] [address]- 8640 Jan, [facility] [place] [facility] [address] [id number] [place] [address]- 3938 Dec, [facility] [place] [facility] [address] [id number] [place] [address]- 6219 Dec, [facility] [place] [facility] [address] [id number] [place] [address]- 7251 Dec, [facility] [place] [facility] [address] [id number] [place] [address]- 6758 Sep, [facility] [place] [facility] [address] [id number] [place] [address]- 6376 28 Aug, 2012 [facility] [address] [id number] [place] [address]- 1607 21 Aug, 2012 [facility] [place] [facility] [address] [id number] [place] [address]- 6680 18 Aug, 2012 [facility] [place] [facility] [address] [id number] [place] [address]- 7262 15 Aug, 2012 [facility] [place] [facility] [address] [id number] [place] [address]- 6471 14 Aug, 2012 [facility] [address] [id number] [place] [address]- 9878 11 Aug, 2012 [facility] [address] [id number] [place] [address]- 9212 16 Jul, 2012 [facility] [address] [id number] [place] [address]- 1085 15 Jul, 2012 [facility] [place] [facility] [address] [id number] [place] [address]- 0325 Jul, [facility] [address] [id number] [place] [address]- 6107 Jul, [facility] [address] [id number] [place] [address]- 8246 Jul, [facility] [address] [id number] [place] [address]- 2864 Jul, [facility] [place] [facility] [address] [id number] [place] [address]- 2167 May, [facility] [place] [facility] [address] [id number] [place] [address]- 2668 May, [facility] [place] [facility] [address] [id number] [place] [address]- 3711 May, [facility] [place] [facility] [address] [id number] [place] [address]- 8591 May, [facility] [place] [facility] [address] [id number] [place] [address]- 3604 15 May, 2012 [facility] [address] [id number] [place] [address]- 3976 May, [facility] [place] [facility] [address] [id number] [place] [address]- 7778 Mar, [facility] [address] [id number] [place] [address]- 0330 Mar, [facility] [place] [facility] [address] [id number] [place] [address]- 4861 Mar, [facility] [address] [id number] [place] [address], [place] [address]- 8438 Mar, [facility] [place] [facility] [address] [id number] [place] [address]- 2879 Mar, [facility] [place] [facility] [address] [facility] [id number] [place] [address]- 7574 Mar, [facility] [address] [id number] [place] [address]- 0028 Mar, [facility] [place] [facility] [address] [facility] [id number] [place] [address]- 9073 Dec, [facility] [address] [facility] [id number] [place] [address]- 7293 Nov, [facility] [place] [facility] [address] [facility] [id number] [place] [address]- 2966 Sep, [facility] [place] [facility] [address] [id number] [place] [address]- 2588 Aug, [facility] [place] [facility] [address] [id number] [place] [address]- 1838 Aug, [facility] [place] [facility] [address] [facility] [id number] [place] [address]- 3564 Aug, [facility] [place] [facility] [address] [facility] [id number] [place] [address]- 9991 Aug, [facility] [place] [facility] [address] [id number] [place] [address]- 1620 Aug, [facility] [place] [facility] [address] [id number] [place] [address]- 2736 Aug, [facility] [place] [facility] [address] [id number] [place] [address]- 7752 Jul, [facility] [place] [facility] [address] [id number] [place] [address]- 4329 Jul, [facility] [place] [facility] [address] [id number] [place] [address]- 5679 Jul, [facility] [place] [facility] [address] [id number] [place] [address]- 9136 May, [facility] [place] [facility] [address] [id number] [place] [address]- 7228 May, [facility] [place] [facility] [address] [id number] [place] [address]- 7621 Mar, [facility] [place] [facility] [address] [id number] [place] [address]- 0863 Mar, [facility] [place] [facility] [address] [id number] [place] [address]- 0285 Mar, [facility] [place] [facility] [address] [id number] [place] [address]- 6447 Mar, [facility] [place] [facility] [address] [id number], [place] [address]- 6359 Dec, [facility] [place] [facility] [address] [id number] [place] [address]- 3830 May, [facility] [place] [facility] [address] [id number] [place] [address]- 7966 May, [facility] [place] [facility] [address] [id number] [place] [address]- 8984 May, [facility] [place] [facility] [address] [id number], [place] [address]- 0363 14 Mar, 2010 [facility] [address] [address]- 8223 14 Mar, 2010 [facility] [address] [address]- 2036 Jan, [facility] [address], [place] [address]- 8347 Aug, [facility] [id number], [place] [address]- 0954 May, [facility] [id number] [place] [address] 03170- 7026 May, [facility] [id number] [place] [address] 99033- 5994 May, [facility] [id number] [place] [address] 52621- 1946 May, [facility] [address], [place] [address]- 7277 May, [facility] [address], [place] [address]- 6624 Mar, [facility] [id number], [place] [address]- 5958 Jul, [facility] [id number] [address]- 2031 14 May, 2006 [facility] [id number] [address]- 5061 Mar, [facility] [address] 6706 Sep, [facility] [address], [place] [address]- 0936 12 Jul, 2004 IMMUNIZATIONS No Known Immunizations SOCIAL HISTORY Never Assessed REASON FOR VISIT triage - CBowmanRN PLAN OF CARE VITAL SIGNS MEDICATIONS Unknown Medications RESULTS No Results PROCEDURES No Known procedures INSTRUCTIONS MEDICATIONS ADMINISTERED No Known Medications MEDICAL (GENERAL) HISTORY Type Description Date Medical History Attention-deficit hyperactivity disorder Medical History Chlamydial infections Medical History Trichomoniasis Medical History depression Medical History bipolar disorder Medical History Anxiety disorder Medical History Methamphetamine Abuse Medical History Marijuana Dependence Medical History Herpes simplex type 2 infection Medical History History of drug dependence/abuse Medical History Alcohol abuse Medical History 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 Surgical History Myringotomy with ventilating tube insertion Surgical History Tonsillectomy Surgical History Adenoidectomy Hospitalization History Surgery
--- OUTSIDE RECORDS SUMMARY | 2017-11-27 20:33 | XMS REPORT ---
Author Author YOBANY GRIFFITH Organization [facility] Address [address] [place] [address] Care Team Providers Care Leadership Recruiter Name Role Phone GRIFFITHYOBANY Campa Unavailable PROBLEMS Type Condition ICD9-CM Code NYG57-BD Code Onset Dates Condition Status SNOMED Code Problem Tobacco abuse Z72.0 Active 88575134 Problem Irregular menses N92.6 Active 13683012 Problem Tobacco abuse counseling Z71.6 Active 618174743 Problem PCOS (polycystic ovarian syndrome) E28.2 Active 26697890 Problem IBS (irritable bowel syndrome) K58.9 Active 13271727 Problem Bipolar II disorder F31.81 Active 02477719 Problem Generalized anxiety disorder F41.1 Active 22016132 Problem Chronic posttraumatic stress disorder F43.12 Active 760436353 Problem Unspecified mood [affective] disorder F39 Active 498064939 Problem PTSD (post-traumatic stress disorder) F43.10 Active 43743531 Problem History of drug dependence/abuse F19.21 Active ALLERGIES No Known Allergies ENCOUNTERS Encounter Location Date Diagnosis [facility] [address] [place] [address] 55774- 3969 October, [facility] [address] [place] [address] 70743- 9971 October, [facility] [id number] [place] [address] 02561- 5251 October, [facility] [id number] [place] [address] 70320- 4028 Sep, Bipolar II disorder F31.81 ; PTSD (post-traumatic stress disorder) F43.10 ; Generalized anxiety disorder F41.1 and History of drug dependence/abuse F19.21 [facility] [id number] [place] [address] 92918- 4616 Sep, Unspecified mood [affective] disorder F39 and Post- traumatic stress disorder, unspecified F43.10 [place] [facility] [id number] [place] [address] 87635- 7248 Aug, PCOS (polycystic ovarian syndrome) E28.2 ; Recurrent major depressive disorder, in full remission F33.42 ; IBS (irritable bowel syndrome) K58.9 and Tobacco abuse Z72.0 [place] [address] 25569- 8215 Aug, Generalized anxiety disorder F41.1 and Depressive disorder, not elsewhere classified F32.9 [facility] [facility] [id number] [place] [address] 51187- 2594 Aug, PCOS (polycystic ovarian syndrome) E28.2 ; Recurrent major depressive disorder, in full remission F33.42 ; IBS (irritable bowel syndrome) K58.9 ; Tobacco abuse Z72.0 ; Tobacco abuse counseling Z71.6 ; Dysuria R30.0 ; Irregular menses N92.6 ; Vaginal candidiasis B37.3 and Acute cystitis without hematuria N30.00 [place] [id number] [place] [address] 57642- 5622 May, [facility] [address] 53797- 6224 18 Mar, 2017 Vaginal discharge N89.8 and Recurrent candidiasis of vagina B37.3 [facility] [facility] [id number] [place] [address] 96330- 8344 13 Mar, 2017 Nausea and vomiting in adult R11.2 ; Sore throat J02.9 and Diarrhea, unspecified type R19.7 [place] [id number] [place] [address] 59144- 3393 11 Mar, 2017 [place] [address] 37695- 7022 14 Jan, 2017 Vaginal discharge N89.8 ; Dysuria R30.0 ; High risk sexual behavior Z72.51 ; Major depressive disorder, single episode F32.9 and Vaginal candidiasis B37.3 [place] [id number] [place] [address] 40071- 9923 Jan, Anxiety F41.9 [place] [id number] [place] [address] 18464- 8437 Dec, [facility] [id number] [place] [address] 13548- 9732 Nov, Generalized anxiety disorder F41.1 ; Depressive disorder, not elsewhere classified F32.9 ; History of drug dependence/abuse F19.21 and 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 [place] [address] 94449- 8097 Nov, Vaginal discharge N89.8 ; High risk sexual behavior Z72.51 ; Potential exposure to STD Z20.2 and Vaginal candidiasis B37.3 [place] [address] 44354- 0266 Nov, History of drug dependence/abuse F19.21 and Major depressive disorder, single episode F32.9 [place] [id number] [place] [address] 19328- 2554 Nov, Right medial knee pain M25.561 [place] [id number] [place] [address] 61145- 4213 October, Nausea and vomiting, intractability of vomiting not specified, unspecified vomiting type R11.2 and Acute pyelonephritis N10 [place] [id number] [place] [address] 33138- 1316 Sep, Major depressive disorder, single episode F32.9 ; Alcohol abuse F10.10 and Tobacco abuse Z72.0 [place] [id number] [place] [address] 00535- 7657 Sep, Major depressive disorder, single episode F32.9 ; Alcohol abuse F10.10 and History of drug dependence/abuse F19.21 [place] [address] 67895- 4294 Sep, Major depressive disorder, single episode F32.9 [facility] [id number] [place] [address] 11918 -1465 Aug, Acute cystitis with hematuria N30.01 and Dysuria R30.0 [facility] [address] 39336- 9086 Aug, Dysuria R30.0 ; Vaginal candidiasis B37.3 ; Vaginal discharge N89.8 and High risk sexual behavior Z72.51 [facility] [address] 90775- 9090 Jul, [facility] [address] 22728- 3875 Jul, Major depressive disorder, single episode F32.9 ; History of drug dependence/abuse F19.21 ; Alcohol abuse F10.10 and Tobacco abuse Z72.0 [facility] [address] [id number] May, Dental examination Z01.20 and Dental caries K02.9 [facility] [address] 15721- 1994 May, Fatigue, unspecified type R53.83 and Cough R05 [facility] [id number] [place] [address] 13775- 2517 May, [facility] [id number] [place] [address] 35688- 1397 Mar, [facility] [id number] [place] [address] 43285- 0128 Mar, [facility] [address] 42229- 0476 Mar, [facility] [address] 65409- 1028 Mar, [facility] [address] 28141- 7634 10 Mar, 2016 Absence of menstruation N91.2 ; Vagina itching L29.8 ; History of drug dependence/abuse F19.21 ; History of PID Z87.42 and Acute cystitis without hematuria N30.00 [place] [id number] [place] [address] 32851- 5184 08 Sep, 2015 Routine health maintenance Z00.00 ; Late menses N91.0 ; History of drug dependence/abuse F19.21 ; Alcohol abuse F10.10 ; Tobacco abuse Z72.0 ; Tobacco abuse counseling Z71.6 and Back pain M54.9 [facility] [address] [id number] 18 Aug, 2015 Dental examination Z01.20 and Dental caries K02.[address] 47255- 6393 26 Jul, [address] 17706- 8955 14 Jul, 2015 Surveillance of contraceptive injection Z30.[address] 93363- 5221 13 Jul, 2015 Routine screening for STI (sexually transmitted infection) Z11.3 ; Drug use F19.90 ; Counseling on substance use and abuse Z71.89 ; Unprotected sexual intercourse Z72.51 ; Encounter for counseling regarding contraception Z30.9 ; Vaginal discharge N89.8 and Skin lesions L98.9 [place] [address] 92730- 1748 May, [address] 58003- 5964 May, Yeast infection B37.[address] 89316- 1536 May, Excessive and frequent menstruation with irregular cycle N92.1 ; Other fatigue R53.83 ; General counseling and advice for contraceptive management Z30.09 ; Evaluation for contraceptive injection Z30.013 ; Cough R05 ; Vaginal irritation N89.8 and Dizziness R42 [facility] [address] [address]- 1822 14 Sep, 2014 [facility] [address] [facility] [id number] [address]- 3936 Sep, [facility] [address] [address]- 0397 Aug, [facility] [address] [facility] [id number], [place] [address]- 7356 Aug, [facility] [address] [address]- 3807 Aug, [facility] [address] [place] [address] 97417- 2540 Aug, [facility] [address] [address]- 4930 Aug, [facility] [address] [address]- 2257 Aug, [facility] [address] [address]- 5875 Aug, [facility] [address] [address]- 6501 Aug, [facility] [address] [address]- 1468 Aug, [facility] [address] [address]- 7236 Aug, [facility] [address] 7024 Aug, [facility] [address] 9248 Aug, [facility] [address] 3756 Jul, [facility] [place] [facility] [address] [id number] [place] [address]- 6204 Jul, [facility] [place] [facility] [address] [id number] [place] [address]- 4212 May, [facility] [place] [facility] [address] [id number] [place] [address]- 3870 May, [facility] [place] [facility] [address] [id number] [place] [address]- 0263 May, [facility] [place] [facility] [address] [id number] [place] [address]- 6981 May, [facility] [place] [facility] [address] [id number] [place] [address]- 0377 Mar, [facility] [place] [facility] [address] [id number] [place] [address]- 6965 Mar, [facility] [place] [facility] [address] [id number] [place] [address]- 2271 Mar, [facility] [place] [facility] [address] [id number] [place] [address]- 9574 Mar, [facility] [place] [facility] [address] [id number] [place] [address]- 9926 Mar, [facility] [place] [facility] [address] [id number] [place] [address]- 7730 Mar, [facility] [place] [facility] [address] [id number] [place] [address]- 0619 Mar, [facility] [place] [facility] [address] [id number] [place] [address]- 7335 Mar, [facility] [place] [facility] [address] [id number] [place] [address]- 2476 Mar, [facility] [place] [facility] [address] [id number] [place] [address]- 8514 Mar, [facility] [place] [facility] [address] [id number] [place] [address]- 8585 Jan, [facility] [place] [facility] [address] [id number] [place] [address]- 9244 Jan, [facility] [place] [facility] [address] [id number] [place] [address]- 0611 Nov, [facility] [place] [facility] [address] [id number] [place] [address]- 2743 Nov, [facility] [place] [facility] [address] [id number] [place] [address]- 4134 October, [facility] [place] [facility] [address] [id number] [place] [address]- 1745 October, [facility] [place] [facility] [address] [id number] [place] [address]- 8255 October, [facility] [place] [facility] [address] [id number] [place] [address]- 2784 October, [facility] [place] [facility] [address] [id number] [place] [address]- 6754 October, [facility] [place] [facility] [address] [id number] [place] [address]- 7129 October, [facility] [place] [facility] [address] [id number] [place] [address]- 5546 October, [facility] [place] [facility] [address] [id number] [place] [address]- 6304 October, [facility] [place] [facility] [address] [id number], [place] [address]- 3528 Sep, [facility] [place] [facility] [address] [id number] [place] [address]- 4374 Sep, [facility] [place] [facility] [address] [id number] [place] [address]- 7162 Aug, [facility] [place] [facility] [address] [id number] [place] [address]- 6164 Aug, [facility] [place] [facility] [address] [id number] [place] [address]- 1131 Aug, [facility] [address] [id number] [place] [address]- 6975 Aug, [facility] [address] [id number] [place] [address]- 2079 May, [facility] [address] [id number] [place] [address]- 8089 May, [facility] [address] [id number] [place] [address]- 7048 May, [facility] [address] [id number] [place] [address]- 2704 May, [facility] [address] [facility] [id number] [place] [address]- 5450 May, [facility] [address] [id number] [place] [address]- 8665 May, [facility] [address] [id number] [place] [address]- 5210 May, [facility] [address] [id number] [place] [address]- 7923 May, [facility] [address] [facility] [id number] [place] [address]- 4871 Mar, [facility] [place] [facility] [address] [id number] [place] [address]- 1870 Mar, [facility] [place] [facility] [address] [id number] [place] [address]- 8191 Mar, [facility] [place] [facility] [address] [id number] [place] [address]- 8679 Jan, [facility] [place] [facility] [address] [id number] [place] [address]- 2546 Jan, [facility] [place] [facility] [address] [id number] [place] [address]- 6416 Dec, [facility] [address] [id number] [place] [address]- 0051 Dec, [facility] [place] [facility] [address] [id number] [place] [address]- 9520 Dec, [facility] [place] [facility] [address] [id number] [place] [address]- 7654 04 Sep, 2012 [facility] [place] [facility] [address] [id number] [place] [address]- 3455 28 Aug, 2012 [facility] [address] [id number] [place] [address]- 4887 21 Aug, 2012 [facility] [place] [facility] [address] [id number] [place] [address]- 2849 18 Aug, 2012 [facility] [place] [facility] [address] [id number] [place] [address]- 1209 15 Aug, 2012 [facility] [place] [facility] [address] [id number] [place] [address]- 7533 14 Aug, 2012 [facility] [place] [facility] [address] [id number] [place] [address]- 8044 Aug, [facility] [place] [facility] [address] [id number] [place] [address]- 8153 16 Jul, 2012 [facility] [place] [facility] [address] [id number] [place] [address]- 1744 15 Jul, 2012 [facility] [place] [facility] [address] [id number] [place] [address]- 1956 Jul, [facility] [place] [facility] [address] [id number] [place] [address]- 1154 Jul, [facility] [place] [facility] [address] [id number] [place] [address]- 2610 Jul, [facility] [place] [facility] [address] [id number] [place] [address]- 6375 Jul, [facility] [place] [facility] [address] [id number] [place] [address]- 5327 May, [facility] [place] [facility] [address] [id number] [place] [address]- 3222 May, [facility] [place] [facility] [address] [id number] [place] [address]- 1063 May, [facility] [place] [facility] [address] [id number] [place] [address]- 9479 May, [facility] [place] [facility] [address] [id number] [place] [address]- 1485 15 May, 2012 [facility] [place] [facility] [address] [id number] [place] [address], [place] [address]- 4264 May, [facility] [place] [facility] [address] [id number] [place] [address]- 1048 Mar, [facility] [place] [facility] [address] [facility] [id number] [place] [address]- 1827 Mar, [facility] [place] [facility] [address] [id number] [place] [address]- 5557 Mar, [facility] [place] [facility] [address] [facility] [id number] [place] [address]- 3760 Mar, [facility] [place] [facility] [address] [facility] [id number] [place] [address]- 5685 Mar, [facility] [place] [facility] [address] [facility] [id number] [place] [address]- 3050 Mar, [facility] [place] [facility] [address] [id number] [address]- 8596 Mar, [facility] [place] [facility] [address] [id number], [place] [address]- 1871 Dec, [facility] [place] [facility] [address] [facility] [id number], [place] [address]- 3476 Nov, [facility] [place] [facility] [address] [facility] [id number], [place] [address]- 1696 Sep, [facility] [place] [facility] [address] [id number] [place] [address]- 2321 29 Aug, 2011 [facility] [place] [facility] [address] [id number] [place] [address]- 4606 27 Aug, 2011 [facility] [place] [facility] [address] [id number] [place] [address] 2546 Aug, [facility] [place] [facility] [address] [id number] [place] [address] 2546 Aug, [facility] [place] [facility] [address] [id number] [place] [address] 2548 16 Aug, 2011 [facility] [place] [facility] [address] [id number] [place] [address]- 0587 Aug, [facility] [place] [facility] [address] [id number] [place] [address]- 3739 Jul, [facility] [place] [facility] [address] [id number] [place] [address]- 4112 Jul, [facility] [place] [facility] [address] [id number] [place] [address]- 7507 Jul, [facility] [place] [facility] [address] [id number] [place] [address]- 4360 May, [facility] [place] [facility] [address] [id number] [place] [address]- 3551 May, [facility] [place] [facility] [address] [id number] [place] [address]- 5395 Mar, [facility] [place] [facility] [address] [id number] [place] [address]- 0407 24 Mar, 2011 [facility] [place] [facility] [address] [id number] [place] [address]- 4639 Mar, [facility] [place] [facility] [address] [id number] [place] [address] 254 10 Mar, 2011 [facility] [place] [facility] [address] [id number] [place] [address]- 9566 Dec, [facility] [place] [facility] [address] [id number] [place] [address]- 9657 14 May, 2010 [facility] [place] [facility] [address] [id number] [place] [address]- 9097 06 May, 2010 [facility] [place] [facility] [address] [id number] [place] [address]- 7511 22 May, 2010 [facility] [place] [facility] [address] [id number] [place] [address]- 9568 14 Mar, 2010 [facility] [place] [facility] [address] [id number] [place] [address]- 5706 14 Mar, 2010 [facility] [place] [facility] [address] [id number] [place] [address]- 9920 Jan, [facility] [place] [facility] [address] [id number] [place] [address]- 0724 Aug, [facility] [place] [facility] [address] [id number], [place] [address]- 0087 31 May, 2009 [facility] [place] [facility] [address] [id number], [place] [address]- 1486 03 May, 2009 [facility] [place] [facility] [address] [id number], [place] [address]- 3670 16 May, 2009 [facility] [place] [facility] [address] [id number], [place] [address]- 4822 16 May, 2009 [facility] [place] [facility] [address] [id number], [place] [address]- 6155 02 May, 2009 [facility] [place] [facility] [address] [id number], [place] [address]- 4011 21 Mar, 2009 [facility] [place] [facility] [address] [id number], [place] [address]- 3696 10 Jul, 2006 [facility] [place] [facility] [address] [id number], [place] [address]- 6960 14 May, 2006 [facility] [place] [facility] [address] [facility] [id number] [place] [address]- 6881 11 Mar, 2006 [facility] [address] [facility] [id number], [place] [address]- 7432 Sep, [facility] [address] [facility] [id number] [place] [address] Jul, IMMUNIZATIONS No Known Immunizations SOCIAL HISTORY Never Assessed REASON FOR VISIT Yeast infection, possible, white creamy discharge, fishy odor x several weeks--- -DBennettRN PLAN OF CARE Activity Details Follow Up prn Reason: VITAL SIGNS Height 66 in 2017-03-18 Weight 172 lbs 2017-03-18 Temperature 98.4 degrees Fahrenheit 2017-03-18 Heart Rate 90 bpm 2017-03-18 Respiratory Rate 20 2017-03-18 BMI 27.76 kg/m2 2017-03-18 Blood pressure systolic 108 mmHg 2017-03-18 Blood pressure diastolic 80 mmHg 2017-03-18 MEDICATIONS Medication Instructions Dosage Frequency Start Date End Date Duration Status Zyprexa 5 MG Orally Once a day 1 tablet 24h Active Fluconazole 150 MG Orally Once a day 1 tablet every 72 hours x 3, then one tablet every week x 12 wks 24h 18 Mar, 2017 May, 12 weeks Active Zofran 8 MG Orally every 8 hours, PRN 1 tablet 13 Mar, 2017 Active Zoloft 25 MG Orally Once a day 1 tablet 24h 30 days Active RESULTS Name Result Date Reference Range TRICHOMONAS (IN HOUSE) 2017-03-18 TRICHOMONAS negative Control + Lot # [id number] Exp date 02/28/18 BACTERIAL VAGINOSIS (IN HOUSE) 2017-03-18 RESULTS negative Control + Lot # [id number] Exp date 08/18 CULTURE, GENITAL 2017-03-18 Genital Culture, Routine Final report Result 1 Result 2 GC/CHLAM PROBE (STATE) 2017-03-18 CHLAMYDIA negative GC negative PROCEDURES Procedure Date Ordered Result Body Site No Charge Mar 18, 2017 TRICHOMONAS ASSAY W/OPTIC Mar 18, 2017 CULTURE, BACTERIA, OTHER Mar 18, 2017 Bacterial Vaginosis In House Mar 18, 2017 INSTRUCTIONS MEDICATIONS ADMINISTERED No Known Medications MEDICAL [...]
--- OUTSIDE RECORDS SUMMARY | 2017-11-27 20:33 | XMS REPORT ---
Author Author GRIFFITHYOBANY Organization [facility] Address [address] [place] [address] Care Team Providers Care Retail Service Specialist Name Role Phone YOBANY GRIFFITH Unavailable PROBLEMS Type Condition ICD9-CM Code XQC48-MX Code Onset Dates Condition Status SNOMED Code Problem PCOS (polycystic ovarian syndrome) E28.2 Active 45715875 Problem Tobacco abuse Z72.0 Active 98711157 Problem IBS (irritable bowel syndrome) K58.9 Active 47328640 Problem Major depressive disorder, single episode F32.9 Active 59605691 Problem Irregular menses N92.6 Active 17020726 Problem Recurrent major depressive disorder, in full remission F33.42 Active 535306431 Problem Generalized anxiety disorder F41.1 Active 10283558 Problem Tobacco abuse counseling Z71.6 Active 982267798 Problem Anxiety F41.9 Active 69583061 Problem Depressive disorder, not elsewhere classified F32.9 Active 60950596 ALLERGIES No Information ENCOUNTERS Encounter Location Date Diagnosis [place] [id number] [place] [address] 90641- 4894 Sep, [facility] [id number] [place] [address] 41000- 0300 Aug, [facility] [id number] [place] [address] 99487- 8613 Aug, PCOS (polycystic ovarian syndrome) E28.2 ; Recurrent major depressive disorder, in full remission F33.42 ; IBS (irritable bowel syndrome) K58.9 and Tobacco abuse Z72.0 [facility] [id number] [place] [address] 57758- 5049 Aug, Generalized anxiety disorder F41.1 and Depressive disorder, not elsewhere classified F32.9 [facility] [address] 28936- 8679 Aug, PCOS (polycystic ovarian syndrome) E28.2 ; Recurrent major depressive disorder, in full remission F33.42 ; IBS (irritable bowel syndrome) K58.9 ; Tobacco abuse Z72.0 ; Tobacco abuse counseling Z71.6 ; Dysuria R30.0 ; Irregular menses N92.6 ; Vaginal candidiasis B37.3 and Acute cystitis without hematuria N30.00 [place] [address] 66691- 1245 May, [place] [address] 39011- 5675 18 Mar, 2017 Vaginal discharge N89.8 and Recurrent candidiasis of vagina B37.3 [place] [address] 98883- 9516 13 Mar, 2017 Nausea and vomiting in adult R11.2 ; Sore throat J02.9 and Diarrhea, unspecified type R19.7 [place] [address] 18998- 4332 11 Mar, 2017 [place] [address] 82550- 5979 14 Jan, 2017 Vaginal discharge N89.8 ; Dysuria R30.0 ; High risk sexual behavior Z72.51 ; Major depressive disorder, single episode F32.9 and Vaginal candidiasis B37.3 [place] [address] [address] [id number] [place] [address] 65649- 3503 Jan, Anxiety F41.9 [place] [address] [id number] [place] [address] 28491- 5961 Dec, [place] [address] 67863- 7486 Nov, Generalized anxiety disorder F41.1 ; Depressive disorder, not elsewhere classified F32.9 ; History of drug dependence/abuse F19.21 and 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 [place] [address] 21783- 0310 Nov, Vaginal discharge N89.8 ; High risk sexual behavior Z72.51 ; Potential exposure to STD Z20.2 and Vaginal candidiasis B37.3 [place] [address] [id number] [place] [address] 37855- 0579 Nov, History of drug dependence/abuse F19.21 and Major depressive disorder, single episode F32.9 [place] [address] 77022- 4885 Nov, Right medial knee pain M25.561 [place] [address] 39102- 6573 October, Nausea and vomiting, intractability of vomiting not specified, unspecified vomiting type R11.2 and Acute pyelonephritis N10 [place] [address] 13666- 5909 Sep, Major depressive disorder, single episode F32.9 ; Alcohol abuse F10.10 and Tobacco abuse Z72.0 [place] [address] 72478- 0531 Sep, Major depressive disorder, single episode F32.9 ; Alcohol abuse F10.10 and History of drug dependence/abuse F19.21 [place] [address] [id number] [place] [address] 84472- 3721 Sep, Major depressive disorder, single episode F32.9 [facility] [address] 12349 -5954 Aug, Acute cystitis with hematuria N30.01 and Dysuria R30.0 [place] [address] 09487- 4623 Aug, Dysuria R30.0 ; Vaginal candidiasis B37.3 ; Vaginal discharge N89.8 and High risk sexual behavior Z72.51 [place] [address] 78654- 5556 Jul, [place] [address] [place] [id number] [place] [address] 55512- 8693 Jul, Major depressive disorder, single episode F32.9 ; History of drug dependence/abuse F19.21 ; Alcohol abuse F10.10 and Tobacco abuse Z72.0 [facility] [id number] [place] [address] [id number] May, Dental examination Z01.20 and Dental caries K02.9 [facility] [address] 70230- 6459 May, Fatigue, unspecified type R53.83 and Cough R05 [place] [address] 35132- 2708 May, [facility] [address] 46364- 7044 Mar, [facility] [address] 22580- 2647 Mar, [facility] [address] 13989- 0987 Mar, [facility] [address] 83087- 9281 Mar, [facility] [id number] [place] [address] 63487- 4919 Mar, Absence of menstruation N91.2 ; Vagina itching L29.8 ; History of drug dependence/abuse F19.21 ; History of PID Z87.42 and Acute cystitis without hematuria N30.00 [facility] [id number] [place] [address] 15162- 7627 Sep, Routine health maintenance Z00.00 ; Late menses N91.0 ; History of drug dependence/abuse F19.21 ; Alcohol abuse F10.10 ; Tobacco abuse Z72.0 ; Tobacco abuse counseling Z71.6 and Back pain M54.9 [facility] [id number] [place] [address] [id number] Aug, Dental examination Z01.20 and Dental caries K02.9 [place] [id number] [place] [address] 76666- 6347 Jul, [place] [address] [place] [id number] [place] [address] 62645- 2858 14 Jul, 2015 Surveillance of contraceptive injection Z30.[address] 77242- 2303 13 Jul, 2015 Routine screening for STI (sexually transmitted infection) Z11.3 ; Drug use F19.90 ; Counseling on substance use and abuse Z71.89 ; Unprotected sexual intercourse Z72.51 ; Encounter for counseling regarding contraception Z30.9 ; Vaginal discharge N89.8 and Skin lesions L98.9 [place] [id number] [place] [address] 63419- 1318 30 May, [address] 75609- 2407 May, Yeast infection B37.9 [place] [id number] [place] [address] 24413- 0288 19 May, 2015 Excessive and frequent menstruation with irregular cycle N92.1 ; Other fatigue R53.83 ; General counseling and advice for contraceptive management Z30.09 ; Evaluation for contraceptive injection Z30.013 ; Cough R05 ; Vaginal irritation N89.8 and Dizziness R42 [place] [id number] [place] [address] 62831- 9111 Sep, [place] [id number] [place] [address] 46285- 1253 Sep, [address] 02398- 6168 Aug, [place] [id number] [place] [address] 17700- [address] Aug, [address] 06454- 9937 Aug, [facility] [place] [facility] [address] [id number] [place] [address]- 5804 Aug, [facility] [place] [facility] [address] [id number] [place] [address]- 0777 Aug, [facility] [place] [facility] [address] [id number] [place] [address]- 4583 Aug, [facility] [place] [facility] [address] [id number] [place] [address]- 5728 Aug, [facility] [place] [facility] [address] [id number] [place] [address]- 6099 Aug, [facility] [place] [facility] [address] [id number] [place] [address]- 7243 Aug, [facility] [place] [facility] [address] [id number] [place] [address]- 1580 Aug, [facility] [place] [facility] [address] [id number] [place] [address]- 0315 Aug, [facility] [place] [facility] [address] [id number] [place] [address]- 6345 Aug, [facility] [place] [facility] [address] [id number] [place] [address]- 5419 Jul, [facility] [place] [facility] [address] [id number] [place] [address]- 7275 Jul, [facility] [place] [facility] [address] [id number] [address]- 3506 May, [facility] [place] [facility] [address] [id number] [place] [address]- 1402 May, [facility] [place] [facility] [address] [id number] [place] [address]- 8118 May, [facility] [place] [facility] [address] [id number] [place] [address]- 3265 May, [facility] [place] [facility] [address] [id number] [place] [address]- 3348 Mar, [facility] [place] [facility] [address] [id number] [place] [address]- 1189 Mar, [facility] [place] [facility] [address] [id number] [place] [address]- 2864 Mar, [facility] [place] [facility] [address] [id number] [place] [address]- 6147 Mar, [facility] [place] [facility] [address] [id number] [place] [address]- 3569 Mar, [facility] [place] [facility] [address] [id number] [place] [address]- 8046 Mar, [facility] [place] [facility] [address] [id number] [place] [address]- 9471 Mar, [facility] [place] [facility] [address] [id number] [place] [address]- 6664 Mar, [facility] [place] [facility] [address] [id number] [place] [address]- 9806 Mar, [facility] [place] [facility] [address] [id number] [place] [address]- 9930 Mar, [facility] [place] [facility] [address] [id number] [place] [address]- 4435 Jan, [facility] [place] [facility] [address] [id number] [place] [address]- 4166 Jan, [facility] [place] [facility] [address] [id number] [place] [address]- 2430 Nov, [facility] [place] [facility] [address] [id number] [place] [address]- 2606 Nov, [facility] [place] [facility] [address] [id number] [place] [address]- 7897 October, [facility] [place] [facility] [address] [id number] [place] [address]- 0556 October, [facility] [place] [facility] [address] [id number] [place] [address]- 1958 October, [facility] [place] [facility] [address] [id number] [place] [address]- 4594 October, [facility] [place] [facility] [address] [id number] [place] [address]- 7970 October, [facility] [place] [facility] [address] [id number] [place] [address]- 9081 October, [facility] [place] [facility] [address] [id number] [place] [address]- 8636 October, [facility] [place] [facility] [address] [id number] [place] [address]- 8106 October, [facility] [place] [facility] [address] [id number] [place] [address]- 2495 Sep, [facility] [place] [facility] [address] [id number] [place] [address]- 9358 Sep, [facility] [place] [facility] [address] [id number] [place] [address]- 2132 Aug, [facility] [place] [facility] [address] [id number] [place] [address]- 2950 Aug, [facility] [place] [facility] [address] [id number] [place] [address]- 8709 Aug, [facility] [place] [facility] [address] [id number] [place] [address]- 9400 Aug, [facility] [place] [facility] [address] [id number] [place] [address]- 7670 May, [facility] [place] [facility] [address] [id number] [place] [address]- 4910 May, [facility] [place] [facility] [address] [id number] [place] [address]- 9004 May, [facility] [place] [facility] [address] [id number], [place] [address]- 0331 May, [facility] [place] [facility] [address] [id number] [place] [address]- 8199 May, [facility] [place] [facility] [address] [id number] [place] [address]- 9240 May, [facility] [place] [facility] [address] [id number] [place] [address]- 8941 May, [facility] [place] [facility] [address] [id number] [place] [address]- 3095 May, [facility] [place] [facility] [address] [id number] [place] [address]- 9823 Mar, [facility] [place] [facility] [address] [id number] [place] 8148 Mar, [facility] [place] [facility] [address] [id number] [place] [address]- 4978 Mar, [facility] [place] [facility] [address] [id number] [place] [address]- 9654 Jan, [facility] [place] [facility] [address] [id number] [place] [address]- 7371 Jan, [facility] [place] [facility] [address] [id number] [place] [address]- 6853 Dec, [facility] [place] [facility] [address] [id number] [place] [address]- 6829 Dec, [facility] [place] [facility] [address] [id number] [place] [address]- 3140 Dec, [facility] [place] [facility] [address] [id number] [place] [address]- 3432 Sep, [facility] [place] [facility] [address] [id number] [place] [address]- 3693 Aug, [facility] [place] [facility] [address] [id number] [place] [address]- 6990 Aug, [facility] [place] [facility] [address] [id number] [place] [address]- 7220 18 Aug, 2012 [facility] [address] [id number] [place] [address]- 2761 15 Aug, 2012 [facility] [place] [facility] [address] [id number] [place] [address]- 0136 14 Aug, 2012 [facility] [address] [id number] [place] [address]- 8219 11 Aug, 2012 [facility] [place] [facility] [address] [id number] [place] [address]- 9121 16 Jul, 2012 [facility] [address] [id number] [place] [address]- 5922 15 Jul, 2012 [facility] [address] [id number] [place] [address]- 8941 07 Jul, 2012 [facility] [address] [id number] [place] [address]- 8709 04 Jul, 2012 [facility] [address] [id number] [place] [address]- 9223 03 Jul, 2012 [facility] [address] [id number] [place] [address]- 8952 02 Jul, 2012 [facility] [address] [id number] [place] [address]- 4514 26 May, 2012 [facility] [address] [id number] [place] [address]- 2991 26 May, 2012 [facility] [address] [id number] [place] [address]- 8559 18 May, 2012 [facility] [place] [facility] [address] [id number] [place] [address]- 1736 18 May, 2012 [facility] [place] [facility] [address] [id number] [place] [address]- 1406 15 May, 2012 [facility] [place] [facility] [address] [id number] [place] [address]- 0701 May, [facility] [place] [facility] [address] [id number] [place] [address]- 2446 Mar, [facility] [place] [facility] [address] [id number] [place] [address]- 0019 Mar, [facility] [place] [facility] [address] [id number] [place] [address]- 4296 Mar, [facility] [place] [facility] [address] [id number] [place] [address]- 2281 Mar, [facility] [place] [facility] [address] [id number] [place] [address]- 1146 Mar, [facility] [place] [facility] [address] [id number] [place] [address]- 1251 Mar, [facility] [place] [facility] [address] [id number] [place] [address]- 6526 Mar, [facility] [place] [facility] [address] [id number] [place] [address]- 0170 Dec, [facility] [place] [facility] [address] [id number] [place] [address]- 3846 Nov, [facility] [place] [facility] [address] [id number] [place] [address]- 1342 Sep, [facility] [place] [facility] [address] [id number], [place] [address]- 7634 29 Aug, 2011 [facility] [place] [facility] [address] [id number], [place] [address]- 7536 27 Aug, 2011 [facility] [place] [facility] [address] [id number] [place] [address]- 8045 22 Aug, 2011 [facility] [place] [facility] [address] [id number] [place] [address]- 1651 21 Aug, 2011 [facility] [place] [facility] [address] [id number] [place] [address]- 8609 16 Aug, 2011 [facility] [place] [facility] [address] [id number] [place] [address]- 5025 Aug, [facility] [place] [facility] [address] [id number] [place] [address]- 2201 Jul, [facility] [place] [facility] [address] [id number] [place] [address]- 6486 Jul, [facility] [place] [facility] [address] [id number] [place] [address]- 9157 Jul, [facility] [place] [facility] [address] [id number] [place] [address]- 5152 May, [facility] [place] [facility] [address] [id number] [place] [address]- 1625 May, [facility] [place] [facility] [address] [id number] [place] [address]- 3680 Mar, [facility] [place] [facility] [address] [id number] [place] [address]- 6990 Mar, [facility] [place] [facility] [address] [id number] [place] [address]- 7093 Mar, [facility] [place] [facility] [address] [id number] [place] [address]- 0805 Mar, [facility] [place] [facility] [address] [id number] [place] [address]- 1269 Dec, [facility] [place] [facility] [address] [id number] [place] [address]- 5601 14 May, 2010 [facility] [place] [facility] [address] [id number] [place] [address]- 8608 May, [facility] [place] [facility] [address] [id number] [place] [address]- 4840 May, [facility] [place] [facility] [address] [id number] [place] [address]- 3867 14 Mar, 2010 [facility] [place] [facility] [address] [id number] [place] [address]- 6304 14 Mar, 2010 [facility] [address] [facility] [id number], [place] [address]- 4888 Jan, [facility] [address] 6373 Aug, [facility] [address], [place] [address]- 9917 May, [facility] [address], [place] [address]- 4736 May, [facility] [address] [facility] [id number] 6102 May, [facility] [address] 2394 May, [facility] [address], [place] [address]- 2288 May, [facility] [address], [place] [address]- 2657 Mar, [facility] [address], [place] [address]- 9516 Jul, [facility] [address], [place] [address]- 9297 May, [facility] [id number], [place] [address]- 4049 Mar, [facility] [address] [id number], [place] [address]- 0978 Sep, [facility] [address] [id number], [place] [address]- 4191 Jul, IMMUNIZATIONS No Known Immunizations SOCIAL HISTORY Never Assessed REASON FOR VISIT returned phone call PLAN OF CARE VITAL SIGNS MEDICATIONS Unknown [...]
--- OUTSIDE RECORDS SUMMARY | 2017-11-27 20:34 | XMS REPORT ---
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 Name Role Phone YOBANY GRIFFITH Unavailable PROBLEMS Type Condition ICD9-CM Code SEL82-EQ Code Onset Dates Condition Status SNOMED Code Problem PCOS (polycystic ovarian syndrome) E28.2 Active 55017639 Problem Tobacco abuse Z72.0 Active 53362984 Problem IBS (irritable bowel syndrome) K58.9 Active 37887241 Problem Major depressive disorder, single episode F32.9 Active 25770352 Problem Irregular menses N92.6 Active 16538243 Problem Recurrent major depressive disorder, in full remission F33.42 Active 726848568 Problem Generalized anxiety disorder F41.1 Active 40903127 Problem Tobacco abuse counseling Z71.6 Active 435100339 Problem Anxiety F41.9 Active 45689120 Problem Depressive disorder, not elsewhere classified F32.9 Active 24269446 ALLERGIES No Known Allergies ENCOUNTERS Encounter Location Date Diagnosis [place] [id number] [place] [address] 52752- 8749 Sep, [facility] [id number] [place] [address] 04824- 5421 Aug, PCOS (polycystic ovarian syndrome) E28.2 ; Recurrent major depressive disorder, in full remission F33.42 ; IBS (irritable bowel syndrome) K58.9 and Tobacco abuse Z72.0 [facility] [address] [place] [address] 91386- 4953 Aug, Generalized anxiety disorder F41.1 and Depressive disorder, not elsewhere classified F32.9 [facility] [address] [place] [address] 27907- 2927 Aug, PCOS (polycystic ovarian syndrome) E28.2 ; Recurrent major depressive disorder, in full remission F33.42 ; IBS (irritable bowel syndrome) K58.9 ; Tobacco abuse Z72.0 ; Tobacco abuse counseling Z71.6 ; Dysuria R30.0 ; Irregular menses N92.6 ; Vaginal candidiasis B37.3 and Acute cystitis without hematuria N30.00 [place] [id number] [place] [address] 48533- 2880 May, [place] [address] 37163- 4107 18 Mar, 2017 Vaginal discharge N89.8 and Recurrent candidiasis of vagina B37.3 [place] [address] [address] [id number] [place] [address] 62562- 1295 13 Mar, 2017 Nausea and vomiting in adult R11.2 ; Sore throat J02.9 and Diarrhea, unspecified type R19.7 [place] [id number] [place] [address] 30510- 3957 11 Mar, 2017 [place] [address] [id number] [place] [address] 77540- 8164 14 Jan, 2017 Vaginal discharge N89.8 ; Dysuria R30.0 ; High risk sexual behavior Z72.51 ; Major depressive disorder, single episode F32.9 and Vaginal candidiasis B37.3 [place] [id number] [place] [address] 45802- 5598 Jan, Anxiety F41.9 [place] [address] [id number] [place] [address] 08775- 2093 Dec, [place] [address] [id number] [place] [address] 78775- 6133 Nov, Generalized anxiety disorder F41.1 ; Depressive disorder, not elsewhere classified F32.9 ; History of drug dependence/abuse F19.21 and 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 [place] [address] [place] [address] 51543- 2762 Nov, Vaginal discharge N89.8 ; High risk sexual behavior Z72.51 ; Potential exposure to STD Z20.2 and Vaginal candidiasis B37.3 [place] [id number] [place] [address] 99862- 6232 16 Nov, 2016 History of drug dependence/abuse F19.21 and Major depressive disorder, single episode F32.9 [place] [address] [id number] [place] [address] 75846- 3129 Nov, Right medial knee pain M25.561 [place] [address] 25984- 7404 October, Nausea and vomiting, intractability of vomiting not specified, unspecified vomiting type R11.2 and Acute pyelonephritis N10 [place] [address] 17036- 8289 Sep, Major depressive disorder, single episode F32.9 ; Alcohol abuse F10.10 and Tobacco abuse Z72.0 [place] [address] 28100- 5850 Sep, Major depressive disorder, single episode F32.9 ; Alcohol abuse F10.10 and History of drug dependence/abuse F19.21 [place] [address] 70832- 7963 Sep, Major depressive disorder, single episode F32.9 [facility] [id number] [place] [address] 99323 -4970 Aug, Acute cystitis with hematuria N30.01 and Dysuria R30.0 [place] [id number] [place] [address] 26022- 8571 Aug, Dysuria R30.0 ; Vaginal candidiasis B37.3 ; Vaginal discharge N89.8 and High risk sexual behavior Z72.51 [place] [id number] [place] [address] 03857- 4904 Jul, [place] [address] 90733- 7714 Jul, Major depressive disorder, single episode F32.9 ; History of drug dependence/abuse F19.21 ; Alcohol abuse F10.10 and Tobacco abuse Z72.0 [facility] [address] [id number] May, Dental examination Z01.20 and Dental caries K02.9 [facility] [address] 58474- 3986 May, Fatigue, unspecified type R53.83 and Cough R05 [facility] [address] 32099- 0664 May, [facility] [address] [place] [id number]- 5621 Mar, [facility] [address] 01818- 2668 Mar, [place] [address] 52715- 8697 Mar, [facility] [address] 51355- 8186 Mar, [facility] [address] 54032- 7193 Mar, Absence of menstruation N91.2 ; Vagina itching L29.8 ; History of drug dependence/abuse F19.21 ; History of PID Z87.42 and Acute cystitis without hematuria N30.00 [facility] [id number] [place] [address] 63548- 6814 Sep, Routine health maintenance Z00.00 ; Late menses N91.0 ; History of drug dependence/abuse F19.21 ; Alcohol abuse F10.10 ; Tobacco abuse Z72.0 ; Tobacco abuse counseling Z71.6 and Back pain M54.9 [facility] [id number] [place] [address] [id number] Aug, Dental examination Z01.20 and Dental caries K02.9 [facility] [address] [place] [address]- 7326 26 Jul, 2015 [place] [id number] [place] [address] 10019- 1907 14 Jul, 2015 Surveillance of contraceptive injection Z30.42 [place] [address] [id number] [place] [address] 14010- 0213 13 Jul, 2015 Routine screening for STI (sexually transmitted infection) Z11.3 ; Drug use F19.90 ; Counseling on substance use and abuse Z71.89 ; Unprotected sexual intercourse Z72.51 ; Encounter for counseling regarding contraception Z30.9 ; Vaginal discharge N89.8 and Skin lesions L98.[address] 39552- 8347 May, [address] 72758- 9530 May, Yeast infection B37.[address] 80198- 4669 19 May, 2015 Excessive and frequent menstruation with irregular cycle N92.1 ; Other fatigue R53.83 ; General counseling and advice for contraceptive management Z30.09 ; Evaluation for contraceptive injection Z30.013 ; Cough R05 ; Vaginal irritation N89.8 and Dizziness R42 [place] [id number] [place] [address] 88263- 1096 Sep, [place] [address] [address] [id number] [place] [address] 62709- 9188 Sep, [place] [address] [id number] [place] [address] 04316- 1426 Aug, [place] [address] 50229- 8090 Aug, [place] [address] [place] [address] [id number] [place] [address] 48741- 0005 Aug, [place] [address] 38904- 0772 Aug, [facility] [place] [facility] [address] [id number] [place] [address]- 0905 Aug, [facility] [place] [facility] [address] [id number] [place] [address]- 5230 Aug, [facility] [place] [facility] [address] [id number] [place] [address]- 5052 Aug, [facility] [place] [facility] [address] [id number] [place] [address]- 8582 Aug, [facility] [place] [facility] [address] [id number] [place] [address]- 4175 Aug, [facility] [place] [facility] [address] [id number] [place] [address]- 5579 Aug, [facility] [place] [facility] [address] [id number] [place] [address]- 1924 Aug, [facility] [place] [facility] [address] [id number] [place] [address]- 8464 Aug, [facility] [place] [facility] [address] [id number] [place] [address]- 5815 Jul, [facility] [place] [facility] [address] [id number] [place] [address]- 7698 Jul, [facility] [place] [facility] [address] [id number] [address]- 3610 May, [facility] [place] [facility] [address] [id number] [address]- 0355 May, [facility] [place] [facility] [address] [id number] [place] [address]- 7311 May, [facility] [place] [facility] [address] [id number] [address]- 8069 May, [facility] [place] [facility] [address] [id number] [place] [address]- 7332 Mar, [facility] [place] [facility] [address] [id number] [place] [address]- 4908 Mar, [facility] [place] [facility] [address] [id number] [place] [address]- 7093 Mar, [facility] [place] [facility] [address] [id number] [place] [address]- 9029 Mar, [facility] [place] [facility] [address] [id number] [place] 5667 Mar, [facility] [place] [facility] [address] [id number] [place] [address]- 5668 Mar, [facility] [place] [facility] [address] [id number] [place] 2440 Mar, [facility] [place] [facility] [address] [id number] [place] [address]- 2181 Mar, [facility] [place] [facility] [address] [id number] [place] [address]- 0920 Mar, [facility] [place] [facility] [address] [id number] [place] [address]- 5746 Mar, [facility] [place] [facility] [address] [id number] [place] [address]- 4305 Jan, [facility] [place] [facility] [address] [id number] [place] [address]- 8854 Jan, [facility] [place] [facility] [address] [id number] [place] [address]- 6895 Nov, [facility] [place] [facility] [address] [id number] [place] [address]- 4661 Nov, [facility] [place] [facility] [address] [id number] [place] [address]- 0673 October, [facility] [place] [facility] [address] [id number] [place] [address]- 3178 October, [facility] [place] [facility] [address] [id number] [place] [address]- 2972 October, [facility] [place] [facility] [address] [id number] [place] [address]- 9785 October, [facility] [place] [facility] [address] [id number] [place] [address]- 8463 October, [facility] [place] [facility] [address] [id number] [place] [address]- 1303 October, [facility] [place] [facility] [address] [id number] [place] [address]- 4351 October, [facility] [place] [facility] [address] [id number] [place] [address]- 9824 October, [facility] [place] [facility] [address] [id number] [place] [address]- 5742 Sep, [facility] [place] [facility] [address] [id number] [place] [address]- 7579 Sep, [facility] [place] [facility] [address] [id number] [place] [address]- 6214 Aug, [facility] [place] [facility] [address] [id number] [place] [address]- 7191 Aug, [facility] [place] [facility] [address] [id number] [place] [address]- 6210 Aug, [facility] [place] [facility] [address] [id number] [place] [address]- 6621 Aug, [facility] [place] [facility] [address] [id number] [place] [address]- 7931 May, [facility] [place] [facility] [address] [id number] [place] [address]- 8785 May, [facility] [place] [facility] [address] [id number] [place] [address]- 9826 May, [facility] [place] [facility] [address] [id number] [place] [address]- 7426 May, [facility] [place] [facility] [address] [id number] [address]- 1787 May, [facility] [address] [id number] [place] [address]- 9217 May, [facility] [place] [facility] [address] [id number] [place] [address]- 6502 May, [facility] [place] [facility] [address] [id number] [place] [address]- 7345 May, [facility] [place] [facility] [address] [id number] [place] [address]- 3768 Mar, [facility] [place] [facility] [address] [id number] [place] [address]- 0936 Mar, [facility] [place] [facility] [address] [id number] [place] [address] 2542 Mar, [facility] [address] [id number] [place] [address]- 8607 Jan, [facility] [place] [facility] [address] [id number] [place] [address]- 2868 Jan, [facility] [place] [facility] [address] [id number] [place] [address]- 2729 Dec, [facility] [place] [facility] [address] [facility] [id number] [place] [address]- 4651 Dec, [facility] [place] [facility] [address] [id number] [place] [address]- 4169 Dec, [facility] [place] [facility] [address] [id number] [place] [address]- 7085 Sep, [facility] [place] [facility] [address] [id number] [place] [address]- 9927 Aug, [facility] [place] [facility] [address] [id number] [place] [address]- 3505 Aug, [facility] [place] [facility] [address] [id number] [place] [address]- 0116 Aug, [facility] [place] [facility] [address] [id number] [place] [address]- 2241 15 Aug, 2012 [facility] [place] [facility] [address] [id number] [place] [address]- 8563 14 Aug, 2012 [facility] [place] [facility] [address] [id number] [place] [address]- 4446 11 Aug, 2012 [facility] [place] [facility] [address] [id number] [place] [address]- 2120 16 Jul, 2012 [facility] [place] [facility] [address] [id number] [place] [address]- 3373 15 Jul, 2012 [facility] [place] [facility] [address] [id number] [place] [address]- 7139 07 Jul, 2012 [facility] [place] [facility] [address] [id number] [place] [address]- 1449 04 Jul, 2012 [facility] [place] [facility] [address] [id number] [place] [address]- 0944 03 Jul, 2012 [facility] [place] [facility] [address] [id number] [place] [address]- 0472 02 Jul, 2012 [facility] [place] [facility] [address] [id number] [place] [address]- 0137 26 May, 2012 [facility] [place] [facility] [address] [id number] [place] [address]- 2414 26 May, 2012 [facility] [place] [facility] [address] [id number] [place] [address]- 3313 18 May, 2012 [facility] [place] [facility] [address] [id number] [place] [address]- 1986 18 May, 2012 [facility] [place] [facility] [address] [id number] [place] [address]- 1714 15 May, 2012 [facility] [place] [facility] [address] [id number] [place] [address]- 4665 15 May, 2012 [facility] [place] [facility] [address] [id number] [place] [address]- 1487 Mar, [facility] [place] [facility] [address] [id number] [place] [address]- 5626 Mar, [facility] [place] [facility] [address] [id number] [place] [address]- 3076 Mar, [facility] [place] [facility] [address] [id number] [place] [address]- 7436 Mar, [facility] [place] [facility] [address] [id number] [place] [address]- 0967 Mar, [facility] [place] [facility] [address] [id number] [place] [address]- 7355 Mar, [facility] [place] [facility] [address] [id number] [place] [address]- 2306 Mar, [facility] [place] [facility] [address] [id number] [place] [address]- 7671 Dec, [facility] [place] [facility] [address] [id number] [place] [address]- 2529 Nov, [facility] [place] [facility] [address] [id number] [place] [address]- 6325 Sep, [facility] [place] [facility] [address] [id number] [place] [address]- 7334 29 Aug, 2011 [facility] [place] [facility] [address] [id number] [place] [address]- 2859 Aug, [facility] [place] [facility] [address] [id number], [place] [address]- 9570 22 Aug, 2011 [facility] [place] [facility] [address] [id number] [place] [address]- 6097 21 Aug, 2011 [facility] [place] [facility] [address] [id number] [place] [address]- 6756 16 Aug, 2011 [facility] [place] [facility] [address] [facility] [id number] [place] [address] 2546 Aug, [facility] [place] [facility] [address] [id number] [place] [address]- 8806 24 Jul, 2011 [facility] [place] [facility] [address] [id number] [place] [address]- 2378 Jul, [facility] [place] [facility] [address] [id number] [place] [address]- 3256 10 Jul, 2011 [facility] [place] [facility] [address] [id number] [place] [address]- 3598 May, [facility] [place] [facility] [address] [id number] [place] [address]- 4294 May, [facility] [place] [facility] [address] [id number] [place] [address]- 2335 25 Mar, 2011 [facility] [place] [facility] [address] [id number] [place] [address]- 8684 24 Mar, 2011 [facility] [place] [facility] [address] [id number] [place] [address]- 3721 Mar, [facility] [place] [facility] [address] [id number] [place] [address]- 5646 Mar, [facility] [place] [facility] [address] [id number] [place] [address]- 8691 Dec, [facility] [place] [facility] [address] [id number] [place] [address]- 7049 14 May, 2010 [facility] [place] [facility] [address] [id number] [place] [address]- 9712 May, [facility] [place] [facility] [address] [id number] [place] [address]- 2427 May, [facility] [place] [facility] [address] [id number] [place] [address]- 6941 14 Mar, 2010 [facility] [place] [facility] [address] [id number] [place] [address]- 3465 14 Mar, 2010 [facility] [place] [facility] [address] [id number] [place] [address]- 3123 Jan, [facility] [address] [address]- 0096 Aug, [facility] [id number] [address]- 2626 May, [facility] [id number] [address]- 2546 May, [facility] [id number] [place] [address] 83500- 4736 May, [facility] [address] [address]- 0410 May, [facility] [id number] [place] [address] 18500- 2546 May, [facility] [address] [address]- 8418 Mar, [facility] [id number] [place] [address] 11966- 5411 Jul, [facility] [address] [address]- 0680 May, [facility] [address] [address]- 2127 Mar, [facility] [address] [address]- 6948 Sep, [facility] [address] [address]- 4426 Jul, IMMUNIZATIONS No Known Immunizations SOCIAL HISTORY Never Assessed REASON FOR VISIT Anxiety--DBennettRN, panic attacks x3 back to back yesterday, saw Dr. Child earlier this week, prescribed zoloft and zyprexa, [facility] PLAN OF CARE Activity Details Follow Up prn Reason: VITAL SIGNS Height 66 in 2017-01-31 Weight 171 lbs 2017-01-31 Temperature 98.1 degrees Fahrenheit 2017-01-31 Heart Rate 80 bpm 2017-01-31 Respiratory Rate 20 2017-01-31 BMI 27.60 kg/m2 2017-01-31 Blood pressure systolic 120 mmHg 2017-01-31 Blood pressure diastolic 80 mmHg 2017-01-31 MEDICATIONS Medication Instructions Dosage Frequency Start Date End Date Duration Status Zyprexa 5 MG Orally Once a day 1 tablet 24h Active Zoloft 25 MG Orally Once a [...]
--- OUTSIDE RECORDS SUMMARY | 2017-11-27 20:35 | XMS REPORT ---
Author Author SUPRIYA MILAGRO [facility] Address [address] [place] [address] Care Team Providers Care Bank Boss Name Role Phone SUPRIYADCMILAGRO Unavailable PROBLEMS Type Condition ICD9-CM Code XTQ69-EB Code Onset Dates Condition Status SNOMED Code Problem Tobacco abuse counseling Z71.6 Active 038750626 Problem Unspecified mood [affective] disorder F39 Active 280430929 Problem Irregular menses N92.6 Active 04660426 Problem PCOS (polycystic ovarian syndrome) E28.2 Active 28893444 Problem IBS (irritable bowel syndrome) K58.9 Active 35627228 Problem Tobacco abuse Z72.0 Active 77869309 Problem Other chronic pain G89.29 Active 87358249 Problem Bipolar II disorder F31.81 Active 86295191 Problem Chronic posttraumatic stress disorder F43.12 Active 458483129 Problem Generalized anxiety disorder F41.1 Active 25812961 Problem PTSD (post-traumatic stress disorder) F43.10 Active 77083795 Problem History of drug dependence/abuse F19.21 Active ALLERGIES No Information ENCOUNTERS Encounter Location Date Diagnosis [facility] [id number] [place] [address] 91965- 7231 October, [facility] [id number] [place] [address] 04390- 6000 October, [facility] [id number] [place] [address] 85120- 2348 October, [facility] [id number] [place] [address] 56988- 0430 October, Low back pain M54.5 ; Dysuria R30.0 ; Other chronic pain G89.29 and Routine gynecological examination Z01.419 [facility] [id number] [place] [address] 06954- 3766 October, Dysuria R30.0 and Vaginal discharge N89.8 [place] [id number] [place] [address] 62207- 2470 Sep, Bipolar II disorder F31.81 ; PTSD (post-traumatic stress disorder) F43.10 ; Generalized anxiety disorder F41.1 and History of drug dependence/abuse F19.21 [place] [address] 98641- 6058 Sep, Unspecified mood [affective] disorder F39 and Post- traumatic stress disorder, unspecified F43.10 [place] [address] 82887- 7239 Aug, PCOS (polycystic ovarian syndrome) E28.2 ; Recurrent major depressive disorder, in full remission F33.42 ; IBS (irritable bowel syndrome) K58.9 and Tobacco abuse Z72.0 [place] [address] 63399- 0887 Aug, Generalized anxiety disorder F41.1 and Depressive disorder, not elsewhere classified F32.9 [place] [address] 15241- 4411 Aug, PCOS (polycystic ovarian syndrome) E28.2 ; Recurrent major depressive disorder, in full remission F33.42 ; IBS (irritable bowel syndrome) K58.9 ; Tobacco abuse Z72.0 ; Tobacco abuse counseling Z71.6 ; Dysuria R30.0 ; Irregular menses N92.6 ; Vaginal candidiasis B37.3 and Acute cystitis without hematuria N30.00 [place] [id number] [place] [address] 96777- 2907 May, [place] [address] 37955- 1451 18 Mar, 2017 Vaginal discharge N89.8 and Recurrent candidiasis of vagina B37.3 [place] [id number] [place] [address] 74606- 6243 13 Mar, 2017 Nausea and vomiting in adult R11.2 ; Sore throat J02.9 and Diarrhea, unspecified type R19.7 [facility] [id number] [place] [address] 76264- 6189 11 Mar, 2017 [facility] [id number] [place] [address] 93385- 2486 Jan, Vaginal discharge N89.8 ; Dysuria R30.0 ; High risk sexual behavior Z72.51 ; Major depressive disorder, single episode F32.9 and Vaginal candidiasis B37.3 [place] [id number] [place] [address] 31480- 0450 Jan, Anxiety F41.9 [place] [id number] [place] [address] 91196- 3706 Dec, [place] [id number] [place] [address] 09599- 4507 Nov, Generalized anxiety disorder F41.1 ; Depressive disorder, not elsewhere classified F32.9 ; History of drug dependence/abuse F19.21 and 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 [place] [id number] [place] [address] 71497- 2583 Nov, Vaginal discharge N89.8 ; High risk sexual behavior Z72.51 ; Potential exposure to STD Z20.2 and Vaginal candidiasis B37.3 [place] [id number] [place] [address] 47805- 0898 Nov, History of drug dependence/abuse F19.21 and Major depressive disorder, single episode F32.9 [facility] [id number] [place] [address] 32591- 7522 Nov, Right medial knee pain M25.561 [place] [id number] [place] [address] 50881- 1029 October, Nausea and vomiting, intractability of vomiting not specified, unspecified vomiting type R11.2 and Acute pyelonephritis N10 [facility] [id number] [place] [address] 59595- 0189 Sep, Major depressive disorder, single episode F32.9 ; Alcohol abuse F10.10 and Tobacco abuse Z72.0 [facility] [address] 73356- 7957 Sep, Major depressive disorder, single episode F32.9 ; Alcohol abuse F10.10 and History of drug dependence/abuse F19.21 [facility] [address] 31136- 6442 Sep, Major depressive disorder, single episode F32.9 [facility] [address] 96074 -1658 Aug, Acute cystitis with hematuria N30.01 and Dysuria R30.0 [place] [address] 51223- 6572 Aug, Dysuria R30.0 ; Vaginal candidiasis B37.3 ; Vaginal discharge N89.8 and High risk sexual behavior Z72.51 [place] [address] 08117- 0929 Jul, [place] [address] 64083- 3759 Jul, Major depressive disorder, single episode F32.9 ; History of drug dependence/abuse F19.21 ; Alcohol abuse F10.10 and Tobacco abuse Z72.0 [facility] [id number] [place] [address] [id number] May, Dental examination Z01.20 and Dental caries K02.9 [place] [address] 12749- 1404 May, Fatigue, unspecified type R53.83 and Cough R05 [facility] [address] 77886- 6571 May, [place] [address] 82688- 2607 Mar, [place] [id number] [place] [address] 01565- 0251 Mar, [place] [id number] [place] [address] 16034- 8471 Mar, [facility] [id number] [place] [address] 00006- 9242 Mar, [place] [id number] [place] [address] 73260- 9574 Mar, Absence of menstruation N91.2 ; Vagina itching L29.8 ; History of drug dependence/abuse F19.21 ; History of PID Z87.42 and Acute cystitis without hematuria N30.00 [place] [id number] [place] [address] 27393- 3942 08 Sep, 2015 Routine health maintenance Z00.00 ; Late menses N91.0 ; History of drug dependence/abuse F19.21 ; Alcohol abuse F10.10 ; Tobacco abuse Z72.0 ; Tobacco abuse counseling Z71.6 [address] Back pain M54.9 [facility] [id number] [place] [address] [id number] Aug, Dental examination Z01.20 and Dental caries K02.9 [place] [address] [place] [address] 75931- 4394 Jul, [place] [id number] [place] [address] 04131- 2818 14 Jul, 2015 Surveillance of contraceptive injection Z30.42 [place] [id number] [place] [address] 34360- 3714 13 Jul, 2015 Routine screening for STI (sexually transmitted infection) Z11.3 ; Drug use F19.90 ; Counseling on substance use and abuse Z71.89 ; Unprotected sexual intercourse Z72.51 ; Encounter for counseling regarding contraception Z30.9 ; Vaginal discharge N89.8 and Skin lesions L98.9 [place] [id number] [place] [address] 19196- 0562 May, [facility] [address] [address]- 9591 May, Yeast infection B37.9 [facility] [id number] [place] [address] 375273- 3619 May, Excessive and frequent menstruation with irregular cycle N92.1 ; Other fatigue R53.83 ; General counseling and advice for contraceptive management Z30.09 ; Evaluation for contraceptive injection Z30.013 ; Cough R05 ; Vaginal irritation N89.8 and Dizziness R42 [facility] [id number] [place] [address] 82357- 0260 14 Sep, 2014 [facility] [id number] [place] [address] 52266- 4032 Sep, [facility] [id number] [place] [address] 20012- 2211 Aug, [facility] [id number] [place] [address] 73475- 6468 Aug, [facility] [id number] [place] [address] 13334- 6312 Aug, [facility] [id number] [place] [address] 70173- 3177 Aug, [facility] [address] [address]- 8754 Aug, [facility] [id number] [place] [address] 375052- 0259 Aug, [facility] [id number] [place] [address] 076207- 4573 Aug, [facility] [id number] [place] [address] 776967- 3236 Aug, [facility] [id number] [place] [address] 03384- 1289 Aug, [facility] [id number] [place] [address]- 3266 Aug, 2014 [facility] [place] [facility] [address] [id number] [place] [address]- 2202 Aug, 2014 [facility] [place] [facility] [address] [id number] [place] [address]- 6098 Aug, 2014 [facility] [place] [facility] [address] [id number] [place] [address]- 2173 Jul, [facility] [place] [facility] [address] [id number] [place] [address]- 4530 Jul, [facility] [place] [facility] [address] [id number] [place] [address]- 4039 May, [facility] [place] [facility] [address] [id number] [place] [address]- 4796 May, [facility] [place] [facility] [address] [id number] [place] [address]- 1253 May, [facility] [place] [facility] [address] [id number] [place] [address]- 3852 May, [facility] [place] [facility] [address] [id number] [place] [address]- 4529 Mar, [facility] [place] [facility] [address] [id number] [place] [address]- 8014 Mar, [facility] [place] [facility] [address] [id number] [place] [address]- 5015 Mar, [facility] [place] [facility] [address] [id number] [place] [address]- 3343 Mar, [facility] [place] [facility] [address] [id number] [place] [address]- 5531 Mar, [facility] [place] [facility] [address] [id number] [place] [address]- 1763 Mar, [facility] [place] [facility] [address] [id number] [place] [address]- 5800 Mar, [facility] [place] [facility] [address] [id number] [place] [address]- 4779 Mar, [facility] [place] [facility] [address] [id number] [place] [address]- 1434 Mar, [facility] [place] [facility] [address] [id number] [place] [address]- 5214 Mar, [facility] [place] [facility] [address] [id number] [place] [address]- 9779 Jan, [facility] [place] [facility] [address] [id number] [place] [address]- 4013 Jan, [facility] [place] [facility] [address] [id number] [place] [address]- 1826 Nov, [facility] [place] [facility] [address] [id number] [place] [address]- 3434 Nov, [facility] [place] [facility] [address] [id number] [place] [address]- 2650 October, [facility] [place] [facility] [address] [id number] [place] [address]- 4274 October, [facility] [place] [facility] [address] [id number] [place] [address]- 4635 October, [facility] [place] [facility] [address] [id number] [place] [address]- 8956 October, [facility] [place] [facility] [address] [id number] [place] [address]- 5147 October, [facility] [place] [facility] [address] [id number] [place] [address]- 2078 October, [facility] [place] [facility] [address] [id number] [place] [address]- 3092 October, [facility] [place] [facility] [address] [id number] [place] [address]- 0847 October, [facility] [place] [facility] [address] [id number], [place] [address]- 9496 Sep, [facility] [place] [facility] [address] [id number] [place] [address]- 9057 Sep, [facility] [place] [facility] [address] [id number] [place] [address]- 2208 Aug, [facility] [place] [facility] [address] [id number] [place] [address]- 9552 Aug, [facility] [place] [facility] [address] [id number] [place] [address]- 3936 Aug, [facility] [place] [facility] [address] [id number] [place] [address]- 3051 Aug, [facility] [place] [facility] [address] [facility] [id number] [place] [address]- 1040 May, [facility] [place] [facility] [address] [facility] [id number] [place] [address]- 4911 May, [facility] [place] [facility] [address] [id number] [place] [address]- 0740 May, [facility] [place] [facility] [address] [facility] [id number] [place] [address]- 1969 May, [facility] [place] [facility] [address] [facility] [id number] [place] [address]- 7521 May, [facility] [place] [facility] [address] [facility] [id number] [place] [address]- 5015 May, [facility] [place] [facility] [address] [id number], [place] [address]- 0445 May, [facility] [place] [facility] [address] [id number] [place] [address]- 0332 May, [facility] [place] [facility] [address] [facility] [id number] [place] [address]- 9662 Mar, [facility] [place] [facility] [address] [facility] [id number], [place] [address]- 2723 Mar, [facility] [place] [facility] [address] [id number] [place] [address]- 7757 Mar, [facility] [address] [id number] [place] [address]- 4639 Jan, [facility] [place] [facility] [address] [id number] [place] [address]- 2546 Jan, [facility] [address] [id number] [place] [address]- 2300 Dec, [facility] [address] [id number] [place] [address]- 9052 Dec, [facility] [address] [id number] [place] [address]- 2760 Dec, [facility] [address] [id number] [place] [address]- 1306 Sep, [facility] [address] [id number] [place] [address]- 1856 Aug, [facility] [address] [id number] [place] [address]- 0669 Aug, [facility] [address] [id number] [place] [address]- 3982 18 Aug, 2012 [facility] [address] [id number] [place] [address]- 5510 15 Aug, 2012 [facility] [place] [facility] [address] [id number] [place] [address]- 4422 14 Aug, 2012 [facility] [place] [facility] [address] [id number] [place] [address]- 1950 11 Aug, 2012 [facility] [place] [facility] [address] [id number] [place] [address]- 9344 16 Jul, 2012 [facility] [place] [facility] [address] [id number] [place] [address]- 3578 15 Jul, 2012 [facility] [place] [facility] [address] [id number] [place] [address]- 4580 Jul, [facility] [place] [facility] [address] [id number] [place] [address]- 2089 Jul, [facility] [place] [facility] [address] [id number] [place] [address]- 8596 Jul, [facility] [place] [facility] [address] [facility] [id number] [place] [address]- 2330 Jul, [facility] [place] [facility] [address] [id number] [place] [address]- 1963 May, [facility] [place] [facility] [address] [id number] [place] [address]- 0792 May, [facility] [place] [facility] [address] [id number] [place] [address]- 1316 May, [facility] [place] [facility] [address] [id number] [place] [address]- 9623 May, [facility] [place] [facility] [address] [id number] [place] [address]- 8383 May, [facility] [place] [facility] [address] [id number] [place] [address]- 3794 May, [facility] [place] [facility] [address] [id number] [place] [address]- 7595 Mar, [facility] [place] [facility] [address] [id number], [place] [address]- 9116 Mar, [facility] [place] [facility] [address] [id number], [place] [address]- 9253 Mar, [facility] [place] [facility] [address] [id number] [place] [address]- 1312 Mar, [facility] [place] [facility] [address] [id number], [place] [address]- 0759 Mar, [facility] [place] [facility] [address] [id number], [place] [address]- 4374 Mar, [facility] [place] [facility] [address] [id number] [place] [address]- 8035 07 Mar, 2012 [facility] [address] [id number] [place] [address]- 0905 18 Dec, 2011 [facility] [address] [id number] [place] [address]- 2330 28 Nov, 2011 [facility] [address] [id number] [place] [address]- 2171 Sep, [facility] [address] [id number] [place] [address]- 7340 29 Aug, 2011 [facility] [address] [id number] [place] [address]- 0575 27 Aug, 2011 [facility] [address] [id number] [place] [address]- 5483 Aug, [facility] [address] [id number] [place] [address]- 3429 Aug, [facility] [address] [id number] [place] [address]- 5234 16 Aug, 2011 [facility] [address] [id number] [place] [address]- 3342 Aug, [facility] [address] [id number] [place] [address]- 1531 24 Jul, 2011 [facility] [address] [id number] [place] [address]- 9694 Jul, [facility] [address] [id number] [place] [address]- 4906 Jul, [facility] [address] [id number] [place] [address]- 9548 May, [facility] [place] [facility] [address] [id number] [place] [address]- 2546 May, [facility] [address] [id number] [place] [address]- 0803 Mar, [facility] [place] [facility] [address] [id number] [place] [address]- 1402 24 Mar, 2011 [facility] [place] [facility] [address] [id number] [place] [address]- 4902 10 Mar, 2011 [facility] [place] [facility] [address] [id number] [place] [address]- 1658 10 Mar, 2011 [facility] [place] [facility] [address] [id number] [place] [address]- 4625 Dec, [facility] [place] [facility] [address] [id number] [place] [address]- 2452 14 May, 2010 [facility] [place] [facility] [address] [id number] [place] [address]- 0008 May, [facility] [place] [facility] [address] [id number] [place] [address]- 0492 May, [facility] [place] [facility] [address] [id number] [place] [address]- 4910 14 Mar, 2010 [facility] [place] [facility] [address] [id number] [place] [address]- 5520 14 Mar, 2010 [facility] [place] [facility] [address] [id number] [place] [address]- 4079 Jan, [facility] [place] [facility] [address] [id number] [place] [address]- 6880 Aug, [facility] [place] [facility] [address] [id number], [place] [address]- 9966 May, [facility] [place] [facility] [address] [id number] [place] [address] May, [facility] [place] [facility] [address] [id number], [place] [address] May, [facility] [place] [facility] [address] [id number], [place] [address] 16 May, 2009 [facility] [place] [facility] [address] [id number], [place] [address] 02 May, 2009 [facility] [address] [id number] [address] Mar, [facility] [address] [id number], [place] [address] 10 Jul, 2006 [facility] [address] [id number], [place] [address] 14 May, 2006 [facility] [address] [id number], [place] [address] Mar, [facility] [address] [id number], [place] [address] Sep, [facility] [address] [id number], [place] [address] Jul, IMMUNIZATIONS No Known Immunizations SOCIAL HISTORY Never Assessed REASON FOR VISIT Update Demographics - Personal Info PLAN OF CARE VITAL SIGNS MEDICATIONS Unknown [...]
--- OUTSIDE RECORDS SUMMARY | 2017-11-27 20:35 | XMS REPORT ---
Author Author LIS GUTIÉRREZ [facility] Address [address] [place] [address] Care Team Providers Care Maintainer Operator Name Role Phone BROCKLIS Unavailable PROBLEMS Type Condition ICD9-CM Code AAN90-FU Code Onset Dates Condition Status SNOMED Code Problem PCOS (polycystic ovarian syndrome) E28.2 Active 36335403 Problem Tobacco abuse Z72.0 Active 42814925 Problem IBS (irritable bowel syndrome) K58.9 Active 09943039 Problem Major depressive disorder, single episode F32.9 Active 82013010 Problem Irregular menses N92.6 Active 98185730 Problem Recurrent major depressive disorder, in full remission F33.42 Active 301891420 Problem Generalized anxiety disorder F41.1 Active 35971274 Problem Tobacco abuse counseling Z71.6 Active 720993336 Problem Anxiety F41.9 Active 94092448 Problem Depressive disorder, not elsewhere classified F32.9 Active 26806880 ALLERGIES No Known Allergies ENCOUNTERS Encounter Location Date Diagnosis [facility] [address] [address]- [address] Sep, [facility] [id number] [place] [address] 97110- 1109 Aug, [facility] [id number] [place] [address] 83412- 3869 Aug, PCOS (polycystic ovarian syndrome) E28.2 ; Recurrent major depressive disorder, in full remission F33.42 ; IBS (irritable bowel syndrome) K58.9 and Tobacco abuse Z72.0 [facility] [id number] [place] [address] 56083- 0842 Aug, Generalized anxiety disorder F41.1 and Depressive disorder, not elsewhere classified F32.9 [facility] [address] 05940- 6511 Aug, PCOS (polycystic ovarian syndrome) E28.2 ; Recurrent major depressive disorder, in full remission F33.42 ; IBS (irritable bowel syndrome) K58.9 ; Tobacco abuse Z72.0 ; Tobacco abuse counseling Z71.6 ; Dysuria R30.0 ; Irregular menses N92.6 ; Vaginal candidiasis B37.3 and Acute cystitis without hematuria N30.00 [place] [id number] [place] [address] 34644- 5723 May, [place] [facility] [address] [address]27- 5109 18 Mar, 2017 Vaginal discharge N89.8 and Recurrent candidiasis of vagina B37.3 [facility] [id number] [place] [address] 17581- 1228 13 Mar, 2017 Nausea and vomiting in adult R11.2 ; Sore throat J02.9 and Diarrhea, unspecified type R19.7 [place] [facility] [id number] [place] [address] 62086- 4800 11 Mar, 2017 [place] [id number] [place] [address] 67216- 0733 14 Jan, 2017 Vaginal discharge N89.8 ; Dysuria R30.0 ; High risk sexual behavior Z72.51 ; Major depressive disorder, single episode F32.9 and Vaginal candidiasis B37.3 [place] [facility] [id number] [place] [address] 95367- 9625 Jan, Anxiety F41.9 [place] [facility] [id number] [place] [address] 38800- 7739 Dec, [place] [facility] [address] 31944- 6625 Nov, Generalized anxiety disorder F41.1 ; Depressive disorder, not elsewhere classified F32.9 ; History of drug dependence/abuse F19.21 and 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 [facility] [facility] [id number] [place] [address] 55162- 6451 Nov, Vaginal discharge N89.8 ; High risk sexual behavior Z72.51 ; Potential exposure to STD Z20.2 and Vaginal candidiasis B37.3 [place] [id number] [place] [address] 41598- 9242 Nov, History of drug dependence/abuse F19.21 and Major depressive disorder, single episode F32.9 [place] [facility] [address] 67290- 2896 Nov, Right medial knee pain M25.561 [place] [address] 95947- 7801 October, Nausea and vomiting, intractability of vomiting not specified, unspecified vomiting type R11.2 and Acute pyelonephritis N10 [place] [address] 45569- 6636 Sep, Major depressive disorder, single episode F32.9 ; Alcohol abuse F10.10 and Tobacco abuse Z72.0 [place] [address] 38100- 5647 Sep, Major depressive disorder, single episode F32.9 ; Alcohol abuse F10.10 and History of drug dependence/abuse F19.21 [place] [facility] [id number] [place] [address] 50262- 8073 Sep, Major depressive disorder, single episode F32.9 [facility] [id number] [place] [address] 23205 -4149 Aug, Acute cystitis with hematuria N30.01 and Dysuria R30.0 [place] [address] 89094- 9472 Aug, Dysuria R30.0 ; Vaginal candidiasis B37.3 ; Vaginal discharge N89.8 and High risk sexual behavior Z72.51 [place] [id number] [place] [address] 50789- 7387 Jul, [place] [id number] [place] [address] 05670- 7565 Jul, Major depressive disorder, single episode F32.9 ; History of drug dependence/abuse F19.21 ; Alcohol abuse F10.10 and Tobacco abuse Z72.0 [facility] [id number] [place] [address] [id number] May, Dental examination Z01.20 and Dental caries K02.9 [facility] [address] 15929- 4320 May, Fatigue, unspecified type R53.83 and Cough R05 [place] [address] 62267- 0936 May, [facility] [address] 24178- 4165 Mar, [facility] [address] 13692- 7608 Mar, [facility] [address] 02640- 3885 Mar, [facility] [address] 11237- 5754 Mar, [facility] [address] 48633- 6209 Mar, Absence of menstruation N91.2 ; Vagina itching L29.8 ; History of drug dependence/abuse F19.21 ; History of PID Z87.42 and Acute cystitis without hematuria N30.00 [facility] [id number] [place] [address] 19247- 3857 Sep, Routine health maintenance Z00.00 ; Late menses N91.0 ; History of drug dependence/abuse F19.21 ; Alcohol abuse F10.10 ; Tobacco abuse Z72.0 ; Tobacco abuse counseling Z71.6 and Back pain M54.9 [facility] [id number] [place] [address] [id number] 18 Aug, 2015 Dental examination Z01.20 and Dental caries K02.9 [place] [id number] [place] [address] 39382- 1123 Jul, [place] [id number] [place] [address] 416851- 0675 14 Jul, 2015 Surveillance of contraceptive injection Z30.[address] 94106- 9452 13 Jul, 2015 Routine screening for STI (sexually transmitted infection) Z11.3 ; Drug use F19.90 ; Counseling on substance use and abuse Z71.89 ; Unprotected sexual intercourse Z72.51 ; Encounter for counseling regarding contraception Z30.9 ; Vaginal discharge N89.8 and Skin lesions L98.9 [place] [id number] [place] [address] 73420- 7457 30 May, [address] [id number] [place] [address] 63532- 8902 May, Yeast infection B37.9 [place] [id number] [place] [address] 44949- 9461 19 May, 2015 Excessive and frequent menstruation with irregular cycle N92.1 ; Other fatigue R53.83 ; General counseling and advice for contraceptive management Z30.09 ; Evaluation for contraceptive injection Z30.013 ; Cough R05 ; Vaginal irritation N89.8 and Dizziness R42 [place] [id number] [place] [address] 16689- 6369 Sep, [place] [id number] [place] [address] 13594- 6274 Sep, [address] 25743- 2558 Aug, [place] [id number] [place] [address] 01502- 2705 Aug, [place] [id number] [place] [address] 10701- 9799 Aug, [facility] [place] [facility] [address] [id number] [place] [address]- 9346 Aug, [facility] [place] [facility] [address] [id number] [place] [address]- 2083 Aug, [facility] [place] [facility] [address] [id number] [place] [address]- 7680 Aug, [facility] [place] [facility] [address] [id number] [place] [address]- 1278 Aug, [facility] [place] [facility] [address] [id number] [place] [address]- 9290 Aug, [facility] [place] [facility] [address] [id number] [place] [address]- 8676 Aug, [facility] [place] [facility] [address] [id number] [place] [address]- 3680 Aug, [facility] [place] [facility] [address] [id number] [place] [address]- 4437 Aug, [facility] [place] [facility] [address] [id number] [place] [address]- 4802 Aug, [facility] [place] [facility] [address] [id number] [place] [address]- 5307 Jul, [facility] [place] [facility] [address] [id number] [place] [address]- 4435 Jul, [facility] [place] [facility] [address] [id number] [place] [address]- 4505 May, [facility] [place] [facility] [address] [id number] [place] [address]- 8513 May, [facility] [place] [facility] [address] [id number] [place] [address]- 2331 May, [facility] [place] [facility] [address] [id number] [place] [address]- 2308 May, [facility] [place] [facility] [address] [id number] [place] [address]- 1429 Mar, [facility] [place] [facility] [address] [id number] [place] [address]- 7774 Mar, [facility] [place] [facility] [address] [id number] [place] [address]- 6407 Mar, [facility] [place] [facility] [address] [id number] [place] [address]- 3549 Mar, [facility] [place] [facility] [address] [id number] [place] [address]- 7071 Mar, [facility] [place] [facility] [address] [id number] [place] [address]- 2532 Mar, [facility] [place] [facility] [address] [id number] [place] [address]- 0117 Mar, [facility] [place] [facility] [address] [id number] [place] [address]- 5784 Mar, [facility] [place] [facility] [address] [id number] [place] [address]- 1024 Mar, [facility] [place] [facility] [address] [id number] [place] [address]- 6897 Mar, [facility] [place] [facility] [address] [id number] [place] [address]- 7268 Jan, [facility] [place] [facility] [address] [id number] [place] [address]- 9166 Jan, [facility] [place] [facility] [address] [id number] [place] [address]- 7283 Nov, [facility] [place] [facility] [address] [id number] [place] [address]- 6633 Nov, [facility] [place] [facility] [address] [id number] [place] [address]- 4260 October, [facility] [place] [facility] [address] [id number] [place] [address]- 6910 October, [facility] [place] [facility] [address] [id number] [place] [address]- 1038 October, [facility] [place] [facility] [address] [id number] [place] [address]- 6202 October, [facility] [place] [facility] [address] [id number] [place] [address]- 3514 October, [facility] [place] [facility] [address] [id number] [place] [address]- 8396 October, [facility] [place] [facility] [address] [id number] [place] [address]- 0767 October, [facility] [place] [facility] [address] [id number] [place] [address]- 5330 October, [facility] [place] [facility] [address] [id number] [place] [address]- 7602 Sep, [facility] [place] [facility] [address] [id number] [place] [address]- 2965 Sep, [facility] [place] [facility] [address] [id number] [place] [address]- 2320 Aug, [facility] [place] [facility] [address] [id number] [place] [address]- 4893 Aug, [facility] [place] [facility] [address] [id number] [place] [address]- 7101 Aug, [facility] [place] [facility] [address] [id number] [place] [address]- 7408 Aug, [facility] [place] [facility] [address] [id number] [place] [address]- 4455 May, [facility] [place] [facility] [address] [id number] [place] [address]- 1928 May, [facility] [place] [facility] [address] [id number] [place] [address]- 9854 May, [facility] [place] [facility] [address] [id number] [place] [address]- 1077 May, [facility] [address] [id number] [place] [address]- 9008 May, [facility] [place] [facility] [address] [id number] [place] [address]- 3025 May, [facility] [place] [facility] [address] [id number] [place] [address]- 8037 May, [facility] [place] [facility] [address] [id number] [place] [address]- 7342 May, [facility] [place] [facility] [address] [id number] [place] [address]- 4741 Mar, [facility] [place] [facility] [address] [id number] [place] [address]- 4831 Mar, [facility] [place] [facility] [address] [id number] [place] [address]- 7142 Mar, [facility] [place] [facility] [address] [id number] [place] [address]- 7955 Jan, [facility] [place] [facility] [address] [id number] [place] [address]- 6499 Jan, [facility] [place] [facility] [address] [id number] [place] [address]- 6968 Dec, [facility] [place] [facility] [address] [id number] [place] [address]- 8624 Dec, [facility] [place] [facility] [address] [id number] [place] [address]- 8701 Dec, [facility] [place] [facility] [address] [id number] [place] [address]- 7371 Sep, [facility] [place] [facility] [address] [id number] [place] [address]- 4827 Aug, [facility] [place] [facility] [address] [id number] [place] [address]- 1669 Aug, [facility] [place] [facility] [address] [id number] [place] [address]- 1888 18 Aug, 2012 [facility] [address] [id number] [place] [address]- 2894 15 Aug, 2012 [facility] [place] [facility] [address] [id number] [place] [address]- 2518 14 Aug, 2012 [facility] [address] [id number] [place] [address]- 6174 11 Aug, 2012 [facility] [address] [id number] [place] [address]- 4944 16 Jul, 2012 [facility] [address] [id number] [place] [address]- 3810 15 Jul, 2012 [facility] [address] [id number] [place] [address]- 2217 07 Jul, 2012 [facility] [address] [id number] [place] [address]- 2942 04 Jul, 2012 [facility] [address] [id number] [place] [address]- 3268 Jul, [facility] [address] [id number] [place] [address]- 3776 Jul, [facility] [address] [id number] [place] [address]- 9067 May, [facility] [address] [id number] [place] [address]- 4579 May, [facility] [place] [facility] [address] [id number] [place] [address]- 2434 May, [facility] [place] [facility] [address] [id number] [place] [address]- 8728 18 May, 2012 [facility] [place] [facility] [address] [id number] [place] [address]- 8006 15 May, 2012 [facility] [place] [facility] [address] [id number] [address]- 9016 May, [facility] [place] [facility] [address] [id number] [place] [address]- 9333 Mar, [facility] [place] [facility] [address] [id number] [place] [address]- 8186 Mar, [facility] [place] [facility] [address] [facility] [id number] [place] [address]- 6976 Mar, [facility] [place] [facility] [address] [id number] [place] [address]- 7690 Mar, [facility] [place] [facility] [address] [id number] [place] [address]- 7241 Mar, [facility] [place] [facility] [address] [id number] [place] [address]- 8886 Mar, [facility] [place] [facility] [address] [id number] [place] [address]- 1387 Mar, [facility] [place] [facility] [address] [id number] [place] [address]- 7033 Dec, [facility] [place] [facility] [address] [id number] [place] [address]- 0775 Nov, [facility] [place] [facility] [address] [id number] [place] [address]- 1135 Sep, [facility] [place] [facility] [address] [id number] [address]- 7288 29 Aug, 2011 [facility] [place] [facility] [address] [id number] [place] [address]- 6533 27 Aug, 2011 [facility] [place] [facility] [address] [id number] [place] [address]- 2357 22 Aug, 2011 [facility] [place] [facility] [address] [facility] [id number] [place] [address]- 1247 21 Aug, 2011 [facility] [place] [facility] [address] [facility] [id number] [place] [address]- 2256 16 Aug, 2011 [facility] [place] [facility] [address] [id number] [place] [address]- 6328 Aug, [facility] [address] [id number] [place] [address]- 4265 Jul, [facility] [place] [facility] [address] [id number] [place] [address]- 2902 Jul, [facility] [address] [id number] [place] [address]- 5614 Jul, [facility] [place] [facility] [address] [id number] [place] [address]- 9027 May, [facility] [address] [id number] [place] [address]- 9871 May, [facility] [address] [id number] [place] [address]- 8821 Mar, [facility] [place] [facility] [address] [id number] [place] [address]- 6502 Mar, [facility] [address] [id number] [place] [address]- 8519 Mar, [facility] [place] [facility] [address] [id number] [place] [address]- 7503 Mar, [facility] [address] [id number] [place] [address]- 9934 Dec, [facility] [place] [facility] [address] [id number] [place] [address]- 4534 14 May, 2010 [facility] [place] [facility] [address] [id number] [place] [address]- 9119 May, [facility] [place] [facility] [address] [id number] [place] [address]- 2979 May, [facility] [place] [facility] [address] [id number] [place] [address]- 3659 14 Mar, 2010 [facility] [place] [facility] [address] [id number] [place] [address]- 3642 14 Mar, 2010 [facility] [address] [id number] [address]- 6976 Jan, [facility] [id number] [address]- 6186 Aug, [facility] [id number] [address]- 1931 May, [facility] [id number] [address]- 9566 May, [facility] [id number] [address]- 0244 May, [facility] [address] [address]- 9805 May, [facility] [id number] [address]- 9821 May, [facility] [id number] [address]- 2424 Mar, [facility] [address] [address]- 4968 Jul, [facility] [address], [place] [address]- 6450 May, [facility] [address] [address]- 6223 Mar, [facility] [address] [id number] [address]- 4279 Sep, [facility] [address] [id number] [address]- 3585 Jul, IMMUNIZATIONS No Known Immunizations SOCIAL HISTORY Never Assessed REASON FOR VISIT maci - Pafnilo BLACK PLAN OF CARE Activity Details Follow Up 4 Weeks Reason:GINGER f/u VITAL SIGNS Height 66 in 2016-12-28 Weight 176.5 lbs 2016-12-28 Heart Rate 84 bpm 2016-12-28 Respiratory Rate 18 2016-12-28 BMI 28.48 kg/m2 2016-12-28 Blood pressure systolic 122 mmHg 2016-12-28 Blood pressure diastolic 80 mmHg 2016-12-28 MEDICATIONS Medication Instructions Dosage Frequency Start Date End Date Duration Status BusPIRone HCl 10 mg Orally Twice a day 1 tablet 12h Nov, 30 days Active Naproxen Sodium 500MG Orally Once a day 1 tablet 24h Active HydrOXYzine HCl 50 mg Orally twice a day as needed for anxiety or sleep 1/2 to 1 tablet Nov, 30 days Active Diflucan 150 mg Orally one time 1 tablet Nov, 1 dose Active RESULTS No Results PROCEDURES No Known [...]
--- OUTSIDE RECORDS SUMMARY | 2017-11-27 20:36 | XMS REPORT ---
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 Role Phone HEBERT KIRBY Unavailable PROBLEMS Type Condition ICD9-CM Code FMO34-[place] Code Onset Dates Condition Status SNOMED Code Problem Tobacco abuse Z72.0 Active 97720346 Problem Irregular menses N92.6 Active 85142029 Problem Tobacco abuse counseling Z71.6 Active 696099168 Problem PCOS (polycystic ovarian syndrome) E28.2 Active 39031680 Problem IBS (irritable bowel syndrome) K58.9 Active 21620470 Problem Bipolar II disorder F31.81 Active 59138850 Problem Generalized anxiety disorder F41.1 Active 24977749 Problem Chronic posttraumatic stress disorder F43.12 Active 475715044 Problem Unspecified mood [affective] disorder F39 Active 296738682 Problem PTSD (post-traumatic stress disorder) F43.10 Active 31272587 Problem History of drug dependence/abuse F19.21 Active ALLERGIES No Known Allergies ENCOUNTERS Encounter Location Date Diagnosis [facility] [id number] [place] [address] 44392- 0401 October, [facility] [id number] [place] [address] 65323- 9495 October, [facility] [id number] [place] [address] 13322- 0271 October, [facility] [id number] [place] [address] 72817- 3951 Sep, Bipolar II disorder F31.81 ; PTSD (post-traumatic stress disorder) F43.10 ; Generalized anxiety disorder F41.1 and History of drug dependence/abuse F19.21 [facility] [address] [place] [address] 30026- 5756 Sep, Unspecified mood [affective] disorder F39 and Post- traumatic stress disorder, unspecified F43.10 [facility] [id number] [place] [address] 84570- 8174 Aug, PCOS (polycystic ovarian syndrome) E28.2 ; Recurrent major depressive disorder, in full remission F33.42 ; IBS (irritable bowel syndrome) K58.9 and Tobacco abuse Z72.0 [facility] [address] 02134- 1556 Aug, Generalized anxiety disorder F41.1 and Depressive disorder, not elsewhere classified F32.9 [facility] [address] 82668- 0587 Aug, PCOS (polycystic ovarian syndrome) E28.2 ; Recurrent major depressive disorder, in full remission F33.42 ; IBS (irritable bowel syndrome) K58.9 ; Tobacco abuse Z72.0 ; Tobacco abuse counseling Z71.6 ; Dysuria R30.0 ; Irregular menses N92.6 ; Vaginal candidiasis B37.3 and Acute cystitis without hematuria N30.00 [facility] [id number] [place] [address] 55998- 6959 May, [facility] [address] 50387- 4105 18 Mar, 2017 Vaginal discharge N89.8 and Recurrent candidiasis of vagina B37.3 [facility] [address] 13499- 2964 13 Mar, 2017 Nausea and vomiting in adult R11.2 ; Sore throat J02.9 and Diarrhea, unspecified type R19.7 [facility] [address] 45346- 4438 11 Mar, 2017 [place] [facility] [address] 99907- 3607 14 Jan, 2017 Vaginal discharge N89.8 ; Dysuria R30.0 ; High risk sexual behavior Z72.51 ; Major depressive disorder, single episode F32.9 and Vaginal candidiasis B37.3 [facility] [address] [place] [address] 66379- 3546 Jan, Anxiety F41.9 [facility] [id number] [place] [address] 87228- 8286 Dec, [facility] [id number] [place] [address] 33099- 9530 Nov, Generalized anxiety disorder F41.1 ; Depressive disorder, not elsewhere classified F32.9 ; History of drug dependence/abuse F19.21 and 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 [facility] [address] 17309- 4703 Nov, Vaginal discharge N89.8 ; High risk sexual behavior Z72.51 ; Potential exposure to STD Z20.2 and Vaginal candidiasis B37.3 [facility] [id number] [place] [address] 70863- 8623 Nov, History of drug dependence/abuse F19.21 and Major depressive disorder, single episode F32.9 [facility] [id number] [place] [address] 39855- 8353 Nov, Right medial knee pain M25.561 [facility] [id number] [place] [address] 18517- 4789 October, Nausea and vomiting, intractability of vomiting not specified, unspecified vomiting type R11.2 and Acute pyelonephritis N10 [facility] [address] [place] [address] 10836- 6575 Sep, Major depressive disorder, single episode F32.9 ; Alcohol abuse F10.10 and Tobacco abuse Z72.0 [facility] [id number] [place] [address] 43158- 0198 Sep, Major depressive disorder, single episode F32.9 ; Alcohol abuse F10.10 and History of drug dependence/abuse F19.21 [facility] [id number] [place] [address] 28926- 7666 Sep, Major depressive disorder, single episode F32.9 [facility] [address] 90416 -5205 Aug, Acute cystitis with hematuria N30.01 and Dysuria R30.0 [facility] [address] 34418- 9125 Aug, Dysuria R30.0 ; Vaginal candidiasis B37.3 ; Vaginal discharge N89.8 and High risk sexual behavior Z72.51 [facility] [address] 37542- 9398 Jul, [facility] [address] 16400- 2415 Jul, Major depressive disorder, single episode F32.9 ; History of drug dependence/abuse F19.21 ; Alcohol abuse F10.10 and Tobacco abuse Z72.0 [facility] [address] [id number] May, Dental examination Z01.20 and Dental caries K02.9 [facility] [address] 37809- 4364 May, Fatigue, unspecified type R53.83 and Cough R05 [facility] [id number] [place] [address] 94575- 3182 May, [facility] [address] 62925- 1140 Mar, [facility] [address] 38700- 9617 Mar, [facility] [address] 79240- 9702 Mar, [facility] [id number] [place] [address] 09135- 5487 Mar, [facility] [address] 51941- 7263 10 Mar, 2016 Absence of menstruation N91.2 ; Vagina itching L29.8 ; History of drug dependence/abuse F19.21 ; History of PID Z87.42 and Acute cystitis without hematuria N30.00 [facility] [address] [place] [address] 11022- 4655 08 Sep, 2015 Routine health maintenance Z00.00 ; Late menses N91.0 ; History of drug dependence/abuse F19.21 ; Alcohol abuse F10.10 ; Tobacco abuse Z72.0 ; Tobacco abuse counseling Z71.6 and Back pain M54.9 [facility] [address] [id number] 18 Aug, 2015 Dental examination Z01.20 and Dental caries K02.9 [place] [id number] [place] [address] 71835- 4937 26 Jul, [address] 86023- 5863 14 Jul, 2015 Surveillance of contraceptive injection Z30.42 [place] [id number] [place] [address] 30731- 9692 13 Jul, 2015 Routine screening for STI (sexually transmitted infection) Z11.3 ; Drug use F19.90 ; Counseling on substance use and abuse Z71.89 ; Unprotected sexual intercourse Z72.51 ; Encounter for counseling regarding contraception Z30.9 ; Vaginal discharge N89.8 and Skin lesions L98.9 [facility] [id number] [place] [address] 74493- 6418 May, [place] [id number] [place] [address] 12877- 7986 May, Yeast infection B37.[address] 80465- 4371 May, Excessive and frequent menstruation with irregular cycle N92.1 ; Other fatigue R53.83 ; General counseling and advice for contraceptive management Z30.09 ; Evaluation for contraceptive injection Z30.013 ; Cough R05 ; Vaginal irritation N89.8 and Dizziness R42 [facility] [address] [place] [address]- 7436 14 Sep, 2014 [facility] [address] [address]- 6086 Sep, [facility] [address] [address]- 9296 Aug, [facility] [id number] [place] [address] 31342- 2710 Aug, [facility] [address] [place] [address], [place] [address]- 6094 Aug, [facility] [id number] [place] [address] 152085- 5141 Aug, [facility] [id number] [place] [address] 76446- 4744 Aug, [facility] [address] [address]- 2159 Aug, [facility] [address] 6471 Aug, [facility] [address] 2194 Aug, [facility] [address] [address]- 1226 Aug, [facility] [address] [address] 2546 Aug, [facility] [address] [address]- 2846 Aug, [facility] [address] [address] 2546 Aug, [facility] [address] [address]- 4561 Jul, [facility] [place] [facility] [address] [id number] [place] [address]- 2506 Jul, [facility] [place] [facility] [address] [id number] [place] [address]- 6967 May, [facility] [place] [facility] [address] [id number] [place] [address]- 5730 May, [facility] [place] [facility] [address] [id number] [place] [address]- 0385 May, [facility] [place] [facility] [address] [id number] [place] [address]- 3256 May, [facility] [place] [facility] [address] [id number] [place] [address]- 1014 Mar, [facility] [place] [facility] [address] [id number] [place] [address]- 2787 Mar, [facility] [place] [facility] [address] [id number] [place] [address]- 1404 Mar, [facility] [place] [facility] [address] [id number] [place] [address]- 7708 Mar, [facility] [place] [facility] [address] [id number] [place] [address]- 0255 Mar, [facility] [place] [facility] [address] [id number] [place] [address]- 0176 Mar, [facility] [place] [facility] [address] [id number] [place] [address]- 6874 Mar, [facility] [place] [facility] [address] [id number] [place] [address]- 5130 Mar, [facility] [place] [facility] [address] [id number] [place] [address]- 2575 Mar, [facility] [place] [facility] [address] [id number] [place] [address]- 8306 Mar, [facility] [place] [facility] [address] [id number] [place] [address]- 1531 Jan, [facility] [place] [facility] [address] [id number] [place] [address]- 8649 Jan, [facility] [place] [facility] [address] [id number] [place] [address]- 3790 Nov, [facility] [place] [facility] [address] [id number] [place] [address]- 3177 Nov, [facility] [place] [facility] [address] [id number] [place] [address]- 5961 October, [facility] [place] [facility] [address] [id number] [place] [address]- 1186 October, [facility] [place] [facility] [address] [id number] [place] [address]- 8753 October, [facility] [place] [facility] [address] [id number] [place] [address]- 5462 October, [facility] [place] [facility] [address] [id number] [place] [address]- 1528 October, [facility] [place] [facility] [address] [id number] [place] [address]- 2274 October, [facility] [place] [facility] [address] [id number] [place] [address]- 0337 October, [facility] [place] [facility] [address] [id number] [place] [address]- 8071 October, [facility] [place] [facility] [address] [id number] [place] [address]- 6117 Sep, [facility] [place] [facility] [address] [id number] [place] [address]- 3901 Sep, [facility] [place] [facility] [address] [id number] [place] [address]- 8185 Aug, [facility] [place] [facility] [address] [id number] [place] [address]- 1440 Aug, [facility] [place] [facility] [address] [id number] [place] [address]- 2570 Aug, [facility] [place] [facility] [address] [id number] [place] 3381 Aug, [facility] [place] [facility] [address] [id number] [place] 1611 May, [facility] [place] [facility] [address] [id number] [place] [address]- 9959 May, [facility] [place] [facility] [address] [id number] [place] [address]- 6783 May, [facility] [place] [facility] [address] [id number] [place] [address]- 1725 May, [facility] [place] [facility] [address] [id number] [place] [address]- 6479 May, [facility] [place] [facility] [address] [id number] [place] [address]- 8417 May, [facility] [place] [facility] [address] [id number] [place] [address]- 6928 May, [facility] [place] [facility] [address] [id number] [place] [address]- 5870 May, [facility] [place] [facility] [address] [id number] [place] [address]- 2317 Mar, [facility] [place] [facility] [address] [id number] [place] [address]- 1040 Mar, [facility] [place] [facility] [address] [id number] [place] 8785 Mar, [facility] [place] [facility] [address] [id number] [place] [address]- 0320 Jan, [facility] [place] [facility] [address] [id number] [place] [address]- 6860 Jan, [facility] [place] [facility] [address] [id number] [place] [address]- 1536 Dec, 2012 [facility] [address] [id number] [place] [address]- 9932 Dec, [facility] [address] [id number] [place] [address]- 0554 Dec, [facility] [address] [id number] [place] [address]- 6807 04 Sep, 2012 [facility] [address] [id number] [place] [address]- 4571 28 Aug, 2012 [facility] [address] [id number] [place] [address]- 7969 21 Aug, 2012 [facility] [address] [id number] [place] [address]- 9132 18 Aug, 2012 [facility] [address] [id number] [place] [address]- 0125 15 Aug, 2012 [facility] [place] [facility] [address] [id number] [place] [address]- 7822 14 Aug, 2012 [facility] [address] [id number] [place] [address]- 1523 11 Aug, 2012 [facility] [place] [facility] [address] [id number] [place] [address]- 2511 16 Jul, 2012 [facility] [address] [id number] [address]- 5089 15 Jul, 2012 [facility] [place] [facility] [address] [id number] [address]- 9181 Jul, [facility] [place] [facility] [address] [id number] [place] [address]- 1592 Jul, [facility] [place] [facility] [address] [id number] [place] [address]- 3785 03 Jul, 2012 [facility] [place] [facility] [address] [id number] [place] [address]- 6794 Jul, [facility] [place] [facility] [address] [id number] [place] [address]- 4387 May, [facility] [place] [facility] [address] [id number] [place] [address]- 0278 May, [facility] [place] [facility] [address] [id number] [place] 7896 May, [facility] [place] [facility] [address] [id number] [place] [address]- 4702 May, [facility] [place] [facility] [address] [id number] [place] 8255 May, [facility] [place] [facility] [address] [id number] [place] [address]- 1450 May, [facility] [place] [facility] [address] [id number] [place] [address]- 1253 Mar, [facility] [place] [facility] [address] [id number] [place] 6301 Mar, [facility] [place] [facility] [address] [id number] [place] [address]- 9275 Mar, [facility] [place] [facility] [address] [id number] [place] [address]- 9222 Mar, [facility] [place] [facility] [address] [facility] [id number] [place] 6428 Mar, [facility] [place] [facility] [address] [id number] [place] [address]- 3858 Mar, [facility] [place] [facility] [address] [id number] [address] 2540 Mar, [facility] [place] [facility] [address] [id number] [place] [address]- 8003 Dec, [facility] [place] [facility] [address] [facility] [id number] [place] [address] 2546 Nov, [facility] [place] [facility] [address] [id number] [place] [address]- 7415 Sep, [facility] [place] [facility] [address] [id number] [place] [address]- 3461 29 Aug, 2011 [facility] [place] [facility] [address] [id number] [place] [address]- 5873 27 Aug, 2011 [facility] [place] [facility] [address] [id number] [place] [address]- 8604 Aug, [facility] [place] [facility] [address] [id number] [place] [address]- 5129 Aug, [facility] [place] [facility] [address] [id number] [place] [address]- 4155 16 Aug, 2011 [facility] [place] [facility] [address] [id number] [place] [address]- 7016 Aug, [facility] [place] [facility] [address] [id number] [place] [address]- 5136 Jul, [facility] [place] [facility] [address] [id number] [place] [address]- 3326 Jul, [facility] [place] [facility] [address] [id number] [place] [address]- 1083 Jul, [facility] [place] [facility] [address] [id number] [place] [address]- 3351 May, [facility] [place] [facility] [address] [id number] [place] [address]- 6634 May, [facility] [place] [facility] [address] [id number] [place] [address]- 7429 Mar, [facility] [place] [facility] [address] [id number] [place] [address]- 0906 Mar, [facility] [place] [facility] [address] [id number] [place] [address]- 2885 Mar, [facility] [place] [facility] [address] [id number] [place] [address]- 6977 Mar, [facility] [place] [facility] [address] [id number] [address]- 1857 Dec, [facility] [place] [facility] [address] [id number] [place] [address]- 4268 14 May, 2010 [facility] [place] [facility] [address] [id number] [place] 1703 06 May, 2010 [facility] [place] [facility] [address] [id number] [place] [address]- 8168 22 May, 2010 [facility] [place] [facility] [address] [id number] [place] [address]- 8669 14 Mar, 2010 [facility] [place] [facility] [address] [id number] [place] [address]- 7008 14 Mar, 2010 [facility] [place] [facility] [address] [id number] [place] [address]- 8184 Jan, [facility] [place] [facility] [address] [id number] [place] [address]- 7871 Aug, [facility] [place] [facility] [address] [id number] [place] [address]- 2593 May, [facility] [place] [facility] [address] [id number] [place] [address]- 2726 03 May, 2009 [facility] [place] [facility] [address] [id number] [place] [address]- 2956 16 May, 2009 [facility] [place] [facility] [address] [id number] [address]- 9536 16 May, 2009 [facility] [place] [facility] [address] [id number] [address]- 3456 02 May, 2009 [facility] [place] [facility] [address] [id number] [address]- 3911 21 Mar, 2009 [facility] [place] [facility] [address] [id number] [address]- 4383 10 Jul, 2006 [facility] [place] [facility] [address] [id number] [place] [address] 14 May, 2006 [facility] [place] [facility] [address] [facility] [id number] [place] [address] Mar, [facility] [address] [facility] [id number] [address] Sep, [facility] [address] [facility] [id number] [place] [address] Jul, IMMUNIZATIONS No Known Immunizations SOCIAL HISTORY Never Assessed REASON FOR VISIT Vomiting and chills x2 weeks---[place],CCMA, pt. states she cannot keep anything down PLAN OF CARE Activity Details Follow Up if not improving with PCP or reg follow up Reason: VITAL SIGNS Height 66 in 2017-03-13 Weight 174.5 lbs 2017-03-13 Temperature 97.1 degrees Fahrenheit 2017-03-13 Heart Rate 84 bpm 2017-03-13 Respiratory Rate 18 2017-03-13 BMI 28.16 kg/m2 2017-03-13 Blood pressure systolic 119 mmHg 2017-03-13 Blood pressure diastolic 68 mmHg 2017-03-13 MEDICATIONS Medication Instructions Dosage Frequency Start Date End Date Duration Status Diflucan 150 MG Orally Once a day 1 tablet 24h Jan, 1 dose Active Zofran 8 MG Orally every 8 hours, PRN 1 tablet Mar, Active Zoloft 25 MG Orally Once a day 1 tablet 24h 30 days Active RESULTS Name Result Date Reference Range INFLUENZA A & B (IN HOUSE) 2017-03-13 INFLUENZA A Negative INFLUENZA B Negative Control + Lot # [id number] Exp date 18/06/01 STREP A (IN HOUSE) 2017-03-13 STREP A Negative Control + Lot # [id number] Exp date 18/03/30 PROCEDURES Procedure Date Ordered Result Body Site COMPREHEN METABOLIC PANEL Mar 13, 2017 COMPLETE CBC W/AUTO DIFF WBC Mar 13, 2017 INFLUENZA ASSAY W/OPTIC Mar 13, 2017 FECES CULTURE, BACTERIA Mar 13, 2017 STREP A ASSAY W/OPTIC Mar 13, 2017 VENIPUNCT, ROUTINE* Mar 13, 2017 INSTRUCTIONS MEDICATIONS ADMINISTERED No Known Medications [...]
--- OUTSIDE RECORDS SUMMARY | 2017-11-27 20:40 | XMS REPORT | Continuity of Care Document ---
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) ML 08/30/2016 08/30/2016 [id number] Problems Date Dx Coded Attending Type Code [...] ROUTINE 02/23/2008 V58.69 MEDICATION HIGH RISK 02/23/2008 MIKE LUEVANO DO V03.89 Meningococcal, Other Specified Single Bacterial Disease 02/23/2008 MIKE LUEVANO DO V05.3 Hepatitis Viral/all 02/23/2008 MIKE LUEVANO DO V06.5 Dt, Tetanus-diphtheria [td] 02/23/2008 MIKE LUEVANO DO V20.2 WELL CHILD, ROUTINE 02/23/2008 MIKE LUEVANO DO K V58.69 MEDICATION HIGH RISK 02/23/2008 V03.89 [...] GARY V58.69 MEDICATION HIGH RISK 02/23/2008 REFUGIO TRANSLATION DIRECTOR, LIDIA A V03.89 Meningococcal, Other Specified Single Bacterial Disease 02/23/2008 REFUGIO TRANSLATION DIRECTOR, LIDIA A V05.3 Hepatitis Viral/all 02/23/2008 REFUGIO TRANSLATION DIRECTOR, LIDIA A V06.5 Dt, Tetanus-diphtheria [td] 02/23/2008 REFUGIO TRANSLATION DIRECTOR, LIDIA A V20.2 WELL CHILD, ROUTINE 02/23/2008 REFUGIO TRANSLATION DIRECTOR, LIDIA A V58.69 MEDICATION HIGH RISK 02/23/2008 REFUGIO TRANSLATION DIRECTOR, LIDIA A V03.89 Meningococcal, Other Specified Single Bacterial Disease 02/23/2008 REFUGIO TRANSLATION DIRECTOR, LIDIA A V05.3 Hepatitis Viral/all 02/23/2008 REFUGIO TRANSLATION DIRECTOR, LIDIA A V06.5 Dt, Tetanus-diphtheria [td] 02/23/2008 REFUGIO TRANSLATION DIRECTOR, LIDIA A V20.2 WELL CHILD, ROUTINE 02/23/2008 REFUGIO TRANSLATION DIRECTOR, LIDIA A V58.69 MEDICATION HIGH RISK 02/23/2008 REFUGIO TRANSLATION DIRECTOR, LIDIA A V03.89 Meningococcal, Other Specified Single Bacterial Disease 02/23/2008 REFUGIO TRANSLATION DIRECTOR, LIDIA A V05.3 Hepatitis Viral/all 02/23/2008 REFUGIO TRANSLATION DIRECTOR, LIDIA A V06.5 Dt, Tetanus-diphtheria [td] 02/23/2008 REFUGIO TRANSLATION DIRECTOR, LIDIA A V20.2 WELL CHILD, ROUTINE 02/23/2008 REFUGIO TRANSLATION DIRECTOR, LIDIA A V58.69 MEDICATION HIGH RISK 02/23/2008 REFUGIO TRANSLATION DIRECTOR, LIDIA A V03.89 Meningococcal, Other Specified Single Bacterial Disease 02/23/2008 REFUGIO TRANSLATION DIRECTOR, LIDIA A V05.3 Hepatitis Viral/all 02/23/2008 REFUGIO TRANSLATION DIRECTOR, LIDIA A V06.5 Dt, Tetanus-diphtheria [td] 02/23/2008 REFUGIO TRANSLATION DIRECTOR, LIDIA A V20.2 WELL CHILD, ROUTINE 02/23/2008 REFUGIO TRANSLATION DIRECTOR, LIDIA A V58.69 MEDICATION HIGH RISK 02/23/2008 REFUGIO TRANSLATION DIRECTOR, LIDIA A V03.89 Meningococcal, Other Specified Single Bacterial Disease 02/23/2008 REFUGIO TRANSLATION DIRECTOR, LIDIA A V05.3 Hepatitis Viral/all 02/23/2008 REFUGIO TRANSLATION DIRECTOR, LIDIA A V06.5 Dt, Tetanus-diphtheria [td] 02/23/2008 REFUGIO TRANSLATION DIRECTOR, LIDIA A V20.2 WELL CHILD, ROUTINE 02/23/2008 REFUGIO TON, LIDIA A V58.69 MEDICATION HIGH RISK 02/23/2008 REFUGIO TON, LIDIA A V03.89 Meningococcal, Other Specified Single Bacterial Disease 02/23/2008 REFUGIO TRANSLATION DIRECTOR, LIDIA A V05.3 Hepatitis Viral/all 02/23/2008 REFUGIO TRANSLATION DIRECTOR, LIDIA A V06.5 Dt, Tetanus-diphtheria [td] 02/23/2008 REFUGIO TON, LIDIA A V20.2 WELL CHILD, ROUTINE 02/23/2008 REFUGIO TON, LIDIA A V58.69 MEDICATION HIGH RISK 02/23/2008 AZAEL BECKER, RAYMUNDO V03.89 Meningococcal, Other Specified Single Bacterial Disease 02/23/2008 AZAEL BECKER, RAYMUNDO V05.3 Hepatitis Viral/all 02/23/2008 AZAEL BECKER, RAYMUNDO V06.5 Dt, Tetanus-diphtheria [td] 02/23/2008 AZAEL BECKER, RAYMUNDO V20.2 WELL CHILD, ROUTINE 02/23/2008 AZAEL BECKER, RAYMUNDO V58.69 MEDICATION HIGH RISK 02/23/2008 MIKE LUEVANO DO V03.89 Meningococcal, Other Specified Single Bacterial Disease 02/23/2008 SHAWN LUEVANO DOA K V05.3 Hepatitis Viral/all 02/23/2008 SHAWN LUEVANO DOA K V06.5 Dt, Tetanus-diphtheria [td] 02/23/2008 MIKE LUEVANO DO V20.2 WELL CHILD, ROUTINE 02/23/2008 MIKE LUEVANO DO V58.69 MEDICATION HIGH RISK 02/23/2008 REFUGIO TRANSLATION DIRECTOR, LIDIA A V03.89 Meningococcal, Other Specified Single Bacterial Disease 02/23/2008 REFUGIO TRANSLATION DIRECTOR, LIDIA A V05.3 Hepatitis Viral/all 02/23/2008 REFUGIO TRANSLATION DIRECTOR, LIDIA A V06.5 Dt, Tetanus-diphtheria [td] 02/23/2008 REFUGIO TRANSLATION DIRECTOR, LIDIA A V20.2 WELL CHILD, ROUTINE 02/23/2008 REFUGIO TRANSLATION DIRECTOR, LIDIA A V58.69 MEDICATION HIGH RISK 02/23/2008 MIKE LUEVANO DO V03.89 Meningococcal, Other Specified Single Bacterial Disease 02/23/2008 MIKE LUEVANO DO V05.3 Hepatitis Viral/all 02/23/2008 MIKE LUEVANO DO V06.5 Dt, Tetanus-diphtheria [td] 02/23/2008 MIKE LUEVANO DO V20.2 WELL CHILD, ROUTINE 02/23/2008 MIKE LUEVANO DO V58.69 MEDICATION HIGH RISK 02/23/2008 MIKE LUEVANO DO V03.89 Meningococcal, Other Specified Single Bacterial Disease 02/23/2008 SHAWN LUEVANO DOA K V05.3 Hepatitis Viral/all 02/23/2008 MIKE LUEVANO DO V06.5 Dt, Tetanus-diphtheria [td] 02/23/2008 SHAWN LUEVANO DOA Vero V20.2 WELL CHILD, ROUTINE 02/23/2008 SHAWN LUEVANO DOA Vero V58.69 MEDICATION HIGH RISK 02/23/2008 REFUGIO TRANSLATION DIRECTOR, LIDIA A V03.89 Meningococcal, Other Specified Single Bacterial Disease 02/23/2008 REFUGIO TRANSLATION DIRECTOR, LIDIA A V05.3 Hepatitis Viral/all 02/23/2008 REFUGIO TRANSLATION DIRECTOR, LIDIA A V06.5 Dt, Tetanus-diphtheria [td] 02/23/2008 REFUGIO TRANSLATION DIRECTOR, LIDIA A V20.2 WELL CHILD, ROUTINE 02/23/2008 REFUGIO TRANSLATION DIRECTOR, LIDIA A V58.69 MEDICATION HIGH RISK 04/30/2008 [...] 04/30/2008 780.79 Malaise And Fatigue 04/30/2008 LUEVANO DO, [...] RENO MD 780.79 Malaise And Fatigue 04/30/2008 REFUGIO TRANSLATION DIRECTOR, LIDIA A 780.60 Fever, Unspecified 04/30/2008 REFUGIOAdy MEDINA LIDIA A 780.79 Malaise And Fatigue 04/30/2008 REFUGIO MEDINA LIDIA A 780.60 Fever, Unspecified 04/30/2008 REFUGIO TRANSLATION DIRECTOR, LIDIA A 780.79 Malaise And Fatigue 04/30/2008 REFUGIOJODIE MEDINA, LIDIA A 780.60 Fever, Unspecified 04/30/2008 REFUGIO TRANSLATION DIRECTOR, LIDIA A 780.79 Malaise And Fatigue 04/30/2008 REFUGIO TRANSLATION DIRECTOR, LIDIA A 780.60 Fever, Unspecified 04/30/2008 REFUGIO TRANSLATION DIRECTOR, LIDIA A 780.79 Malaise And Fatigue 04/30/2008 REFUGIO TRANSLATION DIRECTOR, LIDIA A 780.60 Fever, Unspecified 04/30/2008 REFUGIO TRANSLATION DIRECTOR, LIDIA A 780.79 Malaise And Fatigue 04/30/2008 REFUGIO MEDINA, LIDIA A 780.60 Fever, Unspecified 04/30/2008 REFUGIO TRANSLATION DIRECTOR, LIDIA A 780.79 Malaise And Fatigue 04/30/2008 AZAEL BECKER, RAYMUNDO 780.60 Fever, Unspecified 04/30/2008 AZAEL BECKER, RAYMUNDO 780.79 Malaise And Fatigue 04/30/2008 LUEVANO DO, MIKE K 780.60 Fever, Unspecified 04/30/2008 LUEVANO DO, MIKE K 780.79 Malaise And Fatigue 04/30/2008 REFUGIO TRANSLATION DIRECTOR, LIDIA A 780.60 Fever, Unspecified 04/30/2008 REFUGIO TRANSLATION DIRECTOR, LIDIA A 780.79 Malaise And Fatigue 04/30/2008 LUEVANO DO, MIKE K 780.60 Fever, Unspecified 04/30/2008 LUEVANO DO, MIKE K 780.79 Malaise And Fatigue 04/30/2008 LUEVANO DO, MIKE K 780.60 Fever, Unspecified 04/30/2008 LUEVANO DO, MIKE K 780.79 Malaise And Fatigue 04/30/2008 REFUGIO TRANSLATION DIRECTOR, LIDIA A 780.60 Fever, Unspecified 04/30/2008 REFUGIO TRANSLATION DIRECTOR, LIDIA A 780.79 Malaise And Fatigue 08/04/2008 [...] 08/04/2008 382.4 Unspecified Suppurative Otitis Media 08/04/2008 CHLOÉ GARSIA MIKE K 132.0 Pediculus Capitis (head Louse) 08/04/2008 LUEVANO DO MIKE K 382.4 Unspecified Suppurative Otitis Media 08/04/2008 132.0 Pediculus Capitis (head Louse) 08/04/2008 382.4 Unspecified Suppurative Otitis Media 08/04/2008 132.0 Pediculus Capitis (head Louse) 08/04/2008 382.4 Unspecified Suppurative Otitis Media 08/04/2008 132.0 Pediculus Capitis (head Louse) 08/04/2008 382.4 Unspecified Suppurative Otitis Media 08/04/2008 GARY RENO MD 132.0 Pediculus Capitis (head Louse) 08/04/2008 GARY RENO MD 382.4 Unspecified Suppurative Otitis Media 08/04/2008 REFUGIO TRANSLATION DIRECTOR, LIDIA A 132.0 Pediculus Capitis (head Louse) 08/04/2008 REFUGIO TRANSLATION DIRECTOR, LIDIA A 382.4 Unspecified Suppurative Otitis Media 08/04/2008 REFUGIO TRANSLATION DIRECTOR, LIDIA A 132.0 Pediculus Capitis (head Louse) 08/04/2008 REFUGIO TRANSLATION DIRECTOR, LIDIA A 382.4 Unspecified Suppurative Otitis Media 08/04/2008 REFUGIO TRANSLATION DIRECTOR, LIDIA A 132.0 Pediculus Capitis (head Louse) 08/04/2008 REFUGIO TRANSLATION DIRECTOR, LIDIA A 382.4 Unspecified Suppurative Otitis Media 08/04/2008 REFUGIO TRANSLATION DIRECTOR, LIDIA A 132.0 Pediculus Capitis (head Louse) 08/04/2008 REFUGIO TRANSLATION DIRECTOR, LIDIA A 382.4 Unspecified Suppurative Otitis Media 08/04/2008 REFUGIO TRANSLATION DIRECTOR, LIDIA A 132.0 Pediculus Capitis (head Louse) 08/04/2008 REFUGIO TRANSLATION DIRECTOR, LIDIA A 382.4 Unspecified Suppurative Otitis Media 08/04/2008 REFUGIO TRANSLATION DIRECTOR, LIDIA A 132.0 Pediculus Capitis (head Louse) 08/04/2008 REFUGIO TRANSLATION DIRECTOR, LIDIA A 382.4 Unspecified Suppurative Otitis Media 08/04/2008 AZAEL BECKER, RAYMUNDO 132.0 Pediculus Capitis (head Louse) 08/04/2008 AZAEL BECKER, RAYMUNDO 382.4 Unspecified Suppurative Otitis Media 08/04/2008 LUEVANO DO, MIKE K 132.0 Pediculus Capitis (head Louse) 08/04/2008 LUEVANO DO, MIKE K 382.4 Unspecified Suppurative Otitis Media 08/04/2008 REFUGIO TRANSLATION DIRECTOR, LIDIA A 132.0 Pediculus Capitis (head Louse) 08/04/2008 REFUGIO TRANSLATION DIRECTOR, LIDIA A 382.4 Unspecified Suppurative Otitis Media 08/04/2008 LUEVANO DO, MIKE K 132.0 Pediculus Capitis (head Louse) 08/04/2008 LUEVANO DO, MIKE K 382.4 Unspecified Suppurative Otitis Media 08/04/2008 LUEVANO DO, MIKE K 132.0 Pediculus Capitis (head Louse) 08/04/2008 LUEVANO DO, MIKE K 382.4 Unspecified Suppurative Otitis Media 08/04/2008 REFUGIO MEDINA, LIDIA A 132.0 Pediculus Capitis (head Louse) 08/04/2008 REFUGIO MEDINA, LIDIA A 382.4 Unspecified Suppurative Otitis Media [...] MD 300.4 Mo Dysthymic Disorder 12/02/2008 REFUGIO TRANSLATION DIRECTOR, LIDIA A 300.4 Mo Dysthymic Disorder 12/02/2008 REFUGIO TON, LIDIA A 300.4 Mo Dysthymic Disorder 12/02/2008 REFUGIO TRANSLATION DIRECTOR, LIDIA A 300.4 Mo Dysthymic Disorder 12/02/2008 REFUGIO TRANSLATION DIRECTOR, LIDIA A 300.4 Mo Dysthymic Disorder 12/02/2008 REFUGIO TRANSLATION DIRECTOR, LIDIA A 300.4 Mo Dysthymic Disorder 12/02/2008 REFUGIO MEDINA LIDIA A 300.4 Mo Dysthymic Disorder 12/02/2008 RAYMUNDO ADDIOSN MD 300.4 Mo Dysthymic Disorder 12/02/2008 MIKE LUEVANO DO 300.4 Mo Dysthymic Disorder 12/02/2008 REFUGIO MEDINA, LIDIA A 300.4 Mo Dysthymic Disorder 12/02/2008 LUEVANO MIKE GARSIA K 300.4 Mo Dysthymic Disorder 12/02/2008 MIKE LUEVANO DO K 300.4 Mo Dysthymic Disorder 12/02/2008 REFUGIO MEDINA, LIDIA A 300.4 Mo Dysthymic Disorder 04/07/2009 079.99 [...] Classified Elsewhere And Of Unspecified Site 04/07/2009 LIDIA HUFF APRN A 079.99 Unspecified Viral Infection In Conditions Classified Elsewhere And Of Unspecified Site 04/07/2009 REFUGIO MEDINA, LIDIA A 079.99 Unspecified Viral Infection In Conditions Classified Elsewhere And Of Unspecified Site 04/07/2009 JOSEFINA HUFF APRNIDI A 079.99 Unspecified Viral Infection In Conditions Classified Elsewhere And Of Unspecified Site 04/07/2009 REFUGIO TRANSLATION DIRECTOR, LIDIA A 079.99 Unspecified Viral Infection In Conditions Classified Elsewhere And Of Unspecified Site 04/07/2009 REFUGIO TRANSLATION DIRECTOR, LIDIA A 079.99 Unspecified Viral Infection In Conditions Classified Elsewhere And Of Unspecified Site 04/07/2009 REFUGIO TRANSLATION DIRECTOR, LIDIA A 079.99 Unspecified Viral Infection In [...] RENO MD 789.00 Abdominal Pain 05/02/2009 REFUGIO MEDINA, LIDIA A 789.00 Abdominal Pain 05/02/2009 REFUGIO TON, LIDIA A 789.00 Abdominal Pain 05/02/2009 REFUGIO TON, LIDIA A 789.00 Abdominal Pain 05/02/2009 REFUGIO TON, LIDIA A 789.00 Abdominal Pain 05/02/2009 REFUGIO TON, LIDIA A 789.00 Abdominal Pain 05/02/2009 REFUGIO TRANSLATION DIRECTOR, LIDIA A 789.00 Abdominal Pain 05/02/2009 RAYMUNDO ADDISON MD 789.00 Abdominal Pain 05/02/2009 CHLOÉ GARSIA, MIKE K 789.00 Abdominal Pain 05/02/2009 REFUGIO TRANSLATION DIRECTOR, LIDIA A 789.00 Abdominal Pain 05/02/2009 CHLOÉ GARSIA, MIKE K 789.00 Abdominal Pain 05/02/2009 CHLOÉ GARSIA, MIKE K 789.00 Abdominal Pain 05/02/2009 REFUGIO TRANSLATION DIRECTOR, LIDIA A 789.00 Abdominal Pain 06/02/2009 373.11 Stye [...] ( hordeolum Externum) 06/02/2009 682.9 Cellulitis 06/02/2009 CHLOÉ GARSIA, MIKE K 373.11 Stye (hordeolum Externum) 06/02/2009 [...] A 373.11 Stye (hordeolum Externum) 06/02/2009 REFUGIO TRANSLATION DIRECTOR, LIDIA A 682.9 Cellulitis 06/02/2009 REFUGIO TRANSLATION DIRECTOR, LIDIA A 373.11 Stye (hordeolum Externum) 06/02/2009 REFUGIO TRANSLATION DIRECTOR, LIDIA A 682.9 Cellulitis 06/02/2009 REFUGIO TRANSLATION DIRECTOR, LIDIA A 373.11 Stye (hordeolum Externum) 06/02/2009 REFUGIO TRANSLATION DIRECTOR, LIDIA A 682.9 Cellulitis 06/02/2009 REFUGIO TRANSLATION DIRECTOR, LIDIA A 373.11 Stye (hordeolum Externum) 06/02/2009 REFUGIO TRANSLATION DIRECTOR, LIDIA A 682.9 Cellulitis 06/02/2009 REFUGIO TRANSLATION DIRECTOR, LIDIA A 373.11 Stye (hordeolum Externum) 06/02/2009 REFUGIO TRANSLATION DIRECTOR, LIDIA A 682.9 Cellulitis 06/02/2009 REFUGIO TRANSLATION DIRECTOR, LIDIA A 373.11 Stye (hordeolum Externum) 06/02/2009 REFUGIO TRANSLATION DIRECTOR, LIDIA A 682.9 Cellulitis 06/02/2009 AZAEL BECKER, RAYMUNDO 373.11 Stye (hordeolum Externum) 06/02/2009 RAYMUNDO ADDISON MD 682.9 Cellulitis 06/02/2009 SHAWN LUEVANO DOA K 373.11 Stye (hordeolum Externum) 06/02/2009 LUEVANO DOSHAWNA K 682.9 Cellulitis 06/02/2009 REFUGIO TRANSLATION DIRECTOR, LIDIA A 373.11 Stye (hordeolum Externum) 06/02/2009 REFUGIO TRANSLATION DIRECTOR, LIDIA A 682.9 Cellulitis 06/02/2009 LUEVANO DO MIKE K 373.11 Stye (hordeolum Externum) 06/02/2009 LUEVANO DO MIKE K 682.9 Cellulitis 06/02/2009 LUEVANO DO, MIKE K 373.11 Stye (hordeolum Externum) 06/02/2009 LUEVANO DO MIKE K 682.9 Cellulitis 06/02/2009 REFUGIO TRANSLATION DIRECTOR, LIDIA A 373.11 Stye (hordeolum Externum) 06/02/2009 REFUGIO TRANSLATION DIRECTOR, LIDIA A 682.9 Cellulitis 08/18/2009 307.20 TIC [...] 08/18/2009 781.0 Abnormal Involuntary Movements 08/18/2009 LUEVANO MIKE GARSIA 307.20 TIC DISORDER 08/18/2009 LUEVANO DOMIKE 781.0 Abnormal Involuntary Movements 08/18/2009 307.20 TIC DISORDER 08/18/2009 781.0 Abnormal Involuntary Movements 08/18/2009 307.20 TIC DISORDER 08/18/2009 781.0 Abnormal Involuntary Movements 08/18/2009 307.20 TIC DISORDER 08/18/2009 781.0 Abnormal Involuntary Movements 08/18/2009 GARY RENO MD 307.20 TIC DISORDER 08/18/2009 GARY RENO MD 781.0 Abnormal Involuntary Movements 08/18/2009 REFUGIO TRANSLATION DIRECTOR, LIDIA A 307.20 TIC DISORDER 08/18/2009 REFUGIO TRANSLATION DIRECTOR, LIDIA A 781.0 Abnormal Involuntary Movements 08/18/2009 REFUGIO TRANSLATION DIRECTOR, LIDIA A 307.20 TIC DISORDER 08/18/2009 REFUGIO TRANSLATION DIRECTOR, LIDIA A 781.0 Abnormal Involuntary Movements 08/18/2009 REFUGIO TRANSLATION DIRECTOR, LIDIA A 307.20 TIC DISORDER 08/18/2009 REFUGIO TRANSLATION DIRECTOR, LIDIA A 781.0 Abnormal Involuntary Movements 08/18/2009 REFUGIO TRANSLATION DIRECTOR, LIDIA A 307.20 TIC DISORDER 08/18/2009 REFUGIO TRANSLATION DIRECTOR, LIDIA A 781.0 Abnormal Involuntary Movements 08/18/2009 REFUGIO TRANSLATION DIRECTOR, LIDIA A 307.20 TIC DISORDER 08/18/2009 REFUGIO TRANSLATION DIRECTOR, LIDIA A 781.0 Abnormal Involuntary Movements 08/18/2009 REFUGIO TRANSLATION DIRECTOR, LIDIA A 307.20 TIC DISORDER 08/18/2009 REFUGIO TRANSLATION DIRECTOR, LIDIA A 781.0 Abnormal Involuntary Movements 08/18/2009 RAYMUNDO ADDISON MD 307.20 TIC DISORDER 08/18/2009 RAYMUNDO ADDISON MD 781.0 Abnormal Involuntary Movements 08/18/2009 LUEVANO DO, MIKE K 307.20 TIC DISORDER 08/18/2009 LUEVANO DO, MIKE K 781.0 Abnormal Involuntary Movements 08/18/2009 REFUGIO TRANSLATION DIRECTOR, LIDIA A 307.20 TIC DISORDER 08/18/2009 REFUGIO TRANSLATION DIRECTOR, LIDIA A 781.0 Abnormal Involuntary Movements 08/18/2009 LUEVANO DO, MIKE K 307.20 TIC DISORDER 08/18/2009 LUEVANO DO, MIKE K 781.0 Abnormal Involuntary Movements 08/18/2009 LUEVANO DO, MIKE K 307.20 TIC DISORDER 08/18/2009 LUEVANO DO, MIKE K 781.0 Abnormal Involuntary Movements 08/18/2009 REFUGIO APRN, LIDIA A 307.20 TIC DISORDER 08/18/2009 REFUGIO TRANSLATION DIRECTOR, LIDIA A 781.0 Abnormal Involuntary Movements 10/05/2009 [...] Respiratory Infections Of Unspecified Site 10/05/2009 REFUGIO MEDINA, LIDIA A 465.9 Acute Upper Respiratory Infections Of Unspecified Site 10/05/2009 REFUGIO MEDINA LIDIA A 465.9 Acute Upper Respiratory Infections Of Unspecified Site 10/05/2009 REFUGIO TRANSLATION DIRECTOR, LIDIA A 465.9 Acute Upper Respiratory Infections Of Unspecified Site 10/05/2009 REFUGIO TRANSLATION DIRECTOR, LIDIA A 465.9 Acute Upper Respiratory Infections Of Unspecified Site 10/05/2009 REFUGIO TRANSLATION DIRECTOR, LIDIA A 465.9 Acute Upper Respiratory Infections Of Unspecified Site 10/05/2009 REFUGIO TRANSLATION DIRECTOR, LIDIA A 465.9 Acute Upper Respiratory Infections Of Unspecified Site 10/05/2009 RAYMUNDO ADDISON MD 465.9 Acute Upper Respiratory Infections Of Unspecified Site 10/05/2009 LUEVANO DOMIKE K 465.9 Acute Upper Respiratory Infections Of Unspecified Site 10/05/2009 REFUGIO TRANSLATION DIRECTOR, LIDIA A 465.9 Acute Upper Respiratory Infections Of Unspecified Site 10/05/2009 LUEVANO DO, MIKE K 465.9 Acute Upper Respiratory Infections Of Unspecified Site 10/05/2009 LUEVANO DO, MIKE K 465.9 Acute Upper Respiratory Infections Of Unspecified Site 10/05/2009 REFUGIO TRANSLATION DIRECTOR, LIDIA A 465.9 Acute Upper Respiratory Infections Of Unspecified Site 10/06/2009 477.9 RHINITIS 10/06/2009 477.9 RHINITIS 10/06/2009 477.9 RHINITIS 10/06/2009 477.9 RHINITIS 10/06/2009 GARY RENO MD 477.9 RHINITIS 10/06/2009 477.9 RHINITIS 10/06/2009 MIKE LUEVANO DO 477.9 RHINITIS 10/06/2009 477.9 RHINITIS 10/06/2009 477.9 RHINITIS 10/06/2009 477.9 RHINITIS 10/06/2009 GARY RENO MD 477.9 RHINITIS 10/06/2009 REFUGIO TRANSLATION DIRECTOR, LIDIA A 477.9 RHINITIS 10/06/2009 REFUGIO TRANSLATION DIRECTOR, LIDIA A 477.9 RHINITIS 10/06/2009 REFUGIO TRANSLATION DIRECTOR, LIDIA A 477.9 RHINITIS 10/06/2009 REFUGIO TRANSLATION DIRECTOR, LIDIA A 477.9 RHINITIS 10/06/2009 REFUGIO TRANSLATION DIRECTOR, LIDIA A 477.9 RHINITIS 10/06/2009 REFUGIO TRANSLATION DIRECTOR, LIDIA A 477.9 RHINITIS 10/06/2009 AZAEL MD, RAYMUNDO 477.9 RHINITIS 10/06/2009 LUEVANO DO, MIKE K 477.9 RHINITIS 10/06/2009 REFUGIO TRANSLATION DIRECTOR, LIDIA A 477.9 RHINITIS 10/06/2009 LUEVANO DO, MIKE K 477.9 RHINITIS 10/06/2009 LUEVANO DO, MIKE K 477.9 RHINITIS 10/06/2009 REFUGIO TRANSLATION DIRECTOR, LIDIA A 477.9 RHINITIS 10/20/2009 314.01 ADHD COMBINED 10/20/2009 314.01 ADHD COMBINED 10/20/2009 314.01 ADHD COMBINED 10/20/2009 314.01 ADHD COMBINED 10/20/2009 SHADIA BECKER, GARY 314.01 ADHD COMBINED 10/20/2009 314.01 ADHD COMBINED 10/20/2009 LUEVANO DO, MIKE K 314.01 ADHD COMBINED 10/20/2009 314.01 ADHD COMBINED 10/20/2009 314.01 ADHD COMBINED 10/20/2009 314.01 ADHD COMBINED 10/20/2009 SHADIA BECKER, GARY 314.01 ADHD COMBINED 10/20/2009 REFUGIO TRANSLATION DIRECTOR, LIDIA A 314.01 ADHD COMBINED 10/20/2009 REFUGIO TRANSLATION DIRECTOR, LIDIA A 314.01 ADHD COMBINED 10/20/2009 REFUGIO TRANSLATION DIRECTOR, LIDIA A 314.01 ADHD COMBINED 10/20/2009 REFUGIO TRANSLATION DIRECTOR, LIDIA A 314.01 ADHD COMBINED 10/20/2009 REFUGIO TRANSLATION DIRECTOR, LIDIA A 314.01 ADHD COMBINED 10/20/2009 REFUGIO TRANSLATION DIRECTOR, LIDIA A 314.01 ADHD COMBINED 10/20/2009 AZAEL BECKER, RYAMUNDO 314.01 ADHD COMBINED 10/20/2009 LUEVANO DO, MIKE K 314.01 ADHD COMBINED 10/20/2009 REFUGIO TRANSLATION DIRECTOR, LIDIA A 314.01 ADHD COMBINED 10/20/2009 LUEVANO DO, MIKE K 314.01 ADHD COMBINED 10/20/2009 LUEVANO DO, MIKE K 314.01 ADHD COMBINED 10/20/2009 REFUGIO TRANSLATION DIRECTOR, LIDIA A 314.01 ADHD COMBINED 11/24/2009 443.0 RAYNAUD'S SYNDROME 11/24/2009 443.0 RAYNAUD'S SYNDROME 11/24/2009 443.0 RAYNAUD'S SYNDROME 11/24/2009 443.0 RAYNAUD'S SYNDROME 11/24/2009 GARY RENO MD 443.0 RAYNAUD'S SYNDROME 11/24/2009 443.0 RAYNAUD'S SYNDROME 11/24/2009 MIKE LUEVANO DO K 443.0 RAYNAUD'S SYNDROME 11/24/2009 443.0 RAYNAUD'S SYNDROME 11/24/2009 443.0 RAYNAUD'S SYNDROME 11/24/2009 443.0 RAYNAUD'S SYNDROME 11/24/2009 GARY RENO MD 443.0 RAYNAUD'S SYNDROME 11/24/2009 REFUGIO TRANSLATION DIRECTOR, LIDIA A 443.0 RAYNAUD'S SYNDROME 11/24/2009 REFUGIO TRANSLATION DIRECTOR, LIDIA A 443.0 RAYNAUD'S SYNDROME 11/24/2009 REFUGIO TRANSLATION DIRECTOR, LIDIA A 443.0 RAYNAUD'S SYNDROME 11/24/2009 REFUGIO TRANSLATION DIRECTOR, LIDIA A 443.0 RAYNAUD'S SYNDROME 11/24/2009 REFUGIO MEDINA, LIDIA A 443.0 RAYNAUD'S SYNDROME 11/24/2009 REFUGIO TRANSLATION DIRECTOR, LIDIA A 443.0 RAYNAUD'S SYNDROME 11/24/2009 RAYMUNDO ADDISON MD 443.0 RAYNAUD'S SYNDROME 11/24/2009 MIKE LUEVANO DO K 443.0 RAYNAUD'S SYNDROME 11/24/2009 REFUGIO MEDINA, LIDIA A 443.0 RAYNAUD'S SYNDROME 11/24/2009 SHAWN LUEVANO DOA K 443.0 RAYNAUD'S SYNDROME 11/24/2009 MIKE LUEVANO DO K 443.0 RAYNAUD'S SYNDROME 11/24/2009 REFUGIO MEDINA LIDIA A 443.0 RAYNAUD'S SYNDROME 04/13/2010 599.0 Urinary Tract Infection 04/13/2010 599.0 Urinary Tract Infection 04/13/2010 599.0 Urinary Tract Infection 04/13/2010 599.0 Urinary Tract Infection 04/13/2010 GARY RENO MD 599.0 Urinary Tract Infection 04/13/2010 599.0 Urinary Tract Infection 04/13/2010 MIKE LUEVANO DO K 599.0 Urinary Tract Infection 04/13/2010 599.0 Urinary Tract Infection 04/13/2010 599.0 Urinary Tract Infection 04/13/2010 599.0 Urinary Tract Infection 04/13/2010 SHADIA BECKER, GARY 599.0 Urinary Tract Infection 04/13/2010 REFUGIO TRANSLATION DIRECTOR, LIDIA A 599.0 Urinary Tract Infection 04/13/2010 REFUGIO TRANSLATION DIRECTOR, LIDIA A 599.0 Urinary Tract Infection 04/13/2010 REFUGIO TRANSLATION DIRECTOR, LIDIA A 599.0 Urinary Tract Infection 04/13/2010 REFUGIO TRANSLATION DIRECTOR, LIDIA A 599.0 Urinary Tract Infection 04/13/2010 REFUGIO TRANSLATION DIRECTOR, LIDIA A 599.0 Urinary Tract Infection 04/13/2010 REFUGIO TRANSLATION DIRECTOR, LIDIA A 599.0 Urinary Tract Infection 04/13/2010 AZAEL BECKER, RAYMUNDO 599.0 Urinary Tract Infection 04/13/2010 LUEVANO DO, MIKE K 599.0 Urinary Tract Infection 04/13/2010 REFUGIO TRANSLATION DIRECTOR, LIDIA A 599.0 Urinary Tract Infection 04/13/2010 LUEVANO DO, MIKE K 599.0 Urinary Tract Infection 04/13/2010 LUEVANO DO, MIKE K 599.0 Urinary Tract Infection 04/13/2010 REFUGIO TRANSLATION DIRECTOR, LIDIA A 599.0 Urinary Tract Infection 06/05/2010 110.5 Tinea Corporis 06/05/2010 110.5 Tinea Corporis 06/05/2010 110.5 Tinea Corporis 06/05/2010 110.5 Tinea Corporis 06/05/2010 GARY RENO MD 110.5 Tinea Corporis 06/05/2010 110.5 Tinea Corporis 06/05/2010 LUEVANO DO, MIKE K 110.5 Tinea Corporis 06/05/2010 110.5 Tinea Corporis 06/05/2010 110.5 Tinea Corporis 06/05/2010 110.5 Tinea Corporis 06/05/2010 GARY RENO MD 110.5 Tinea Corporis 06/05/2010 REFUGIO TRANSLATION DIRECTOR, LIDIA A 110.5 Tinea Corporis 06/05/2010 REFUGIO TRANSLATION DIRECTOR, LIDIA A 110.5 Tinea Corporis 06/05/2010 REFUGIO TRANSLATION DIRECTOR, LIDIA A 110.5 Tinea Corporis 06/05/2010 REFUGIO TRANSLATION DIRECTOR, LIDIA A 110.5 Tinea Corporis 06/05/2010 REFUGIO TRANSLATION DIRECTOR, LIDIA A 110.5 Tinea Corporis 06/05/2010 REFUGIO TRANSLATION DIRECTOR, LIDIA A 110.5 Tinea Corporis 06/05/2010 AZAEL BECKER, RAYMUNDO 110.5 Tinea Corporis 06/05/2010 LUEVANO DO, MIKE K 110.5 Tinea Corporis 06/05/2010 REFUGIO TRANSLATION DIRECTOR, LIDIA A 110.5 Tinea Corporis 06/05/2010 LUEVANO DO, MIKE K 110.5 Tinea Corporis 06/05/2010 LUEVANO DO, MIKE K 110.5 Tinea Corporis 06/05/2010 REFUGIO TRANSLATION DIRECTOR, LIDIA A 110.5 Tinea Corporis 08/07/2010 461.9 Sinusitis Acute 08/07/2010 461.9 Sinusitis Acute 08/07/2010 461.9 Sinusitis Acute 08/07/2010 461.9 Sinusitis Acute 08/07/2010 GARY RENO MD 461.9 Sinusitis Acute 08/07/2010 461.9 Sinusitis Acute 08/07/2010 MIKE LUEVANO DO K 461.9 Sinusitis Acute 08/07/2010 461.9 Sinusitis Acute 08/07/2010 461.9 Sinusitis Acute 08/07/2010 461.9 Sinusitis Acute 08/07/2010 GARY RENO MD 461.9 Sinusitis Acute 08/07/2010 REFUGIO TRANSLATION DIRECTOR, LIDIA A 461.9 Sinusitis Acute 08/07/2010 REFUGIO TRANSLATION DIRECTOR, LIDIA A 461.9 Sinusitis Acute 08/07/2010 REFUGIO TRANSLATION DIRECTOR, LIDIA A 461.9 Sinusitis Acute 08/07/2010 REFUGIO TRANSLATION DIRECTOR, LIDIA A 461.9 Sinusitis Acute 08/07/2010 REFUGIO TRANSLATION DIRECTOR, LIDIA A 461.9 Sinusitis Acute 08/07/2010 REFUGIO TRANSLATION DIRECTOR, LIDIA A 461.9 Sinusitis Acute 08/07/2010 AZAEL BECKER, RAYMUNDO 461.9 Sinusitis Acute 08/07/2010 LUEVANO SHAWN GARSIAA K 461.9 Sinusitis Acute 08/07/2010 REFUGIO TRANSLATION DIRECTOR, LIDIA A 461.9 Sinusitis Acute 08/07/2010 LUEVANO DO, MIKE K 461.9 Sinusitis Acute 08/07/2010 LUEVANO DO, MIKE K 461.9 Sinusitis Acute 08/07/2010 REFUGIO TRANSLATION DIRECTOR, LIDIA A 461.9 Sinusitis Acute 10/02/2010 692.9 [...] MD 692.9 Dermatitis Contact Unspecified 10/02/2010 REFUGIO TRANSLATION DIRECTOR, LIDIA A 692.9 Dermatitis Contact Unspecified 10/02/2010 REFUGIO TRANSLATION DIRECTOR, LIDIA A 692.9 Dermatitis Contact Unspecified 10/02/2010 REFUGIO TRANSLATION DIRECTOR, LIDIA A 692.9 Dermatitis Contact Unspecified 10/02/2010 REFUGIO TRANSLATION DIRECTOR, LIDIA A 692.9 Dermatitis Contact Unspecified 10/02/2010 REFUGIO TRANSLATION DIRECTOR, LIDIA A 692.9 Dermatitis Contact Unspecified 10/02/2010 REFUGIO TRANSLATION DIRECTOR, LIDIA A 692.9 Dermatitis Contact Unspecified 10/02/2010 RAYMUNDO ADDISON MD 692.9 Dermatitis Contact Unspecified 10/02/2010 LUEVANO DO, MIKE K 692.9 Dermatitis Contact Unspecified 10/02/2010 REFUGIO TRANSLATION DIRECTOR, LIDIA A 692.9 Dermatitis Contact Unspecified 10/02/2010 LUEVANO DO, MIKE K 692.9 Dermatitis Contact Unspecified 10/02/2010 LUEVANO DO, MIKE K 692.9 Dermatitis Contact Unspecified 10/02/2010 REFUGIO TRANSLATION DIRECTOR, LIDIA A 692.9 Dermatitis Contact Unspecified 11/30/2010 057.9 Viral Exanthem Unspecified 11/30/2010 057.9 Viral Exanthem Unspecified 11/30/2010 057.9 Viral Exanthem Unspecified 11/30/2010 057.9 Viral Exanthem Unspecified 11/30/2010 SHADIA BECKER, GARY 057.9 Viral Exanthem Unspecified 11/30/2010 057.9 Viral Exanthem Unspecified 11/30/2010 LUEVANO DO, MIKE K 057.9 Viral Exanthem Unspecified 11/30/2010 057.9 Viral Exanthem Unspecified 11/30/2010 057.9 Viral Exanthem Unspecified 11/30/2010 057.9 Viral Exanthem Unspecified 11/30/2010 SHADIA BECKER, GARY 057.9 Viral Exanthem Unspecified 11/30/2010 REFUGIO TRANSLATION DIRECTOR, LIDIA A 057.9 Viral Exanthem Unspecified 11/30/2010 REFUGIO TRANSLATION DIRECTOR, LIDIA A 057.9 Viral Exanthem Unspecified 11/30/2010 REFUGIO TRANSLATION DIRECTOR, LIDIA A 057.9 Viral Exanthem Unspecified 11/30/2010 REFUGIO TRANSLATION DIRECTOR, LIDIA A 057.9 Viral Exanthem Unspecified 11/30/2010 REFUGIO TRANSLATION DIRECTOR, LIDIA A 057.9 Viral Exanthem Unspecified 11/30/2010 REFUGIO TRANSLATION DIRECTOR, LIDIA A 057.9 Viral Exanthem Unspecified 11/30/2010 AZAEL BECKER, RAYMUNDO 057.9 Viral Exanthem Unspecified 11/30/2010 LUEVANO DO, MIKE K 057.9 Viral Exanthem Unspecified 11/30/2010 REFUGIO TRANSLATION DIRECTOR, LIDIA A 057.9 Viral Exanthem Unspecified 11/30/2010 LUEVANO DO, MIKE K 057.9 Viral Exanthem Unspecified 11/30/2010 LUEVANO DO, MIKE K 057.9 Viral Exanthem Unspecified 11/30/2010 REFUGIO TRANSLATION DIRECTOR, LIDIA A 057.9 Viral Exanthem Unspecified 12/04/2010 053.9 Herpes Zoster Without Complication 12/04/2010 053.9 Herpes Zoster Without Complication 12/04/2010 053.9 Herpes Zoster Without Complication 12/04/2010 053.9 Herpes Zoster Without Complication 12/04/2010 SHADIA BECKER, GARY 053.9 Herpes Zoster Without Complication 12/04/2010 053.9 Herpes Zoster Without Complication 12/04/2010 LUEVANO DO, MIKE K 053.9 Herpes Zoster Without Complication 12/04/2010 053.9 Herpes Zoster Without Complication 12/04/2010 053.9 Herpes Zoster Without Complication 12/04/2010 053.9 Herpes Zoster Without Complication 12/04/2010 SHADIA BECKER, GARY 053.9 Herpes Zoster Without Complication 12/04/2010 REFUGIO TRANSLATION DIRECTOR, LIDIA A 053.9 Herpes Zoster Without Complication 12/04/2010 REFUGIO TRANSLATION DIRECTOR, LIDIA A 053.9 Herpes Zoster Without Complication 12/04/2010 REFUGIO TRANSLATION DIRECTOR, LIDIA A 053.9 Herpes Zoster Without Complication 12/04/2010 REFUGIO TRANSLATION DIRECTOR, LIDIA A 053.9 Herpes Zoster Without Complication 12/04/2010 REFUGIO TRANSLATION DIRECTOR, LIDIA A 053.9 Herpes Zoster Without Complication 12/04/2010 REFUGIO TRANSLATION DIRECTOR, LIDIA A 053.9 Herpes Zoster Without Complication 12/04/2010 AZAEL BECKER, RAYMUNDO 053.9 Herpes Zoster Without Complication 12/04/2010 LUEVANO DO, MIKE K 053.9 Herpes Zoster Without Complication 12/04/2010 REFUGIO TRANSLATION DIRECTOR, LIDIA A 053.9 Herpes Zoster Without Complication 12/04/2010 LUEVANO DO, MIKE K 053.9 Herpes Zoster Without Complication 12/04/2010 LUEVANO DO, MIKE K 053.9 Herpes Zoster Without Complication 12/04/2010 REFUGIO TRANSLATION DIRECTOR, LIDIA A 053.9 Herpes Zoster Without Complication [...] And Abscess Of Unspecified Sites 01/16/2011 REFUGIO TON, LIDIA A 919.4 Insect Bite Nonvenomous Of Other Multiple And Unspecified Sites Without Infection 01/16/2011 REFUGIO MEDINA, LIDIA A 682.9 Cellulitis And Abscess Of Unspecified Sites 01/16/2011 REFUGIO TRANSLATION DIRECTOR, LIDIA A 919.4 Insect Bite Nonvenomous Of Other Multiple And Unspecified Sites Without Infection 01/16/2011 REFUGIO MEDINA, LIDIA A 682.9 Cellulitis And Abscess Of Unspecified Sites 01/16/2011 REFUGIO MEDINA LIDIA A 919.4 Insect Bite Nonvenomous Of Other Multiple And Unspecified Sites Without Infection 01/16/2011 REFUGIO TRANSLATION DIRECTOR, LIDIA A 682.9 Cellulitis And Abscess Of Unspecified Sites 01/16/2011 REFUGIO TRANSLATION DIRECTOR, LIDIA A 919.4 Insect Bite Nonvenomous Of Other Multiple And Unspecified Sites Without Infection 01/16/2011 REFUGIO TRANSLATION DIRECTOR, LIDIA A 682.9 Cellulitis And Abscess Of Unspecified Sites 01/16/2011 REFUGIO TRANSLATION DIRECTOR, LIDIA A 919.4 Insect Bite Nonvenomous Of Other Multiple And Unspecified Sites Without Infection 01/16/2011 REFUGIO TRANSLATION DIRECTOR, LIDIA A 682.9 Cellulitis And Abscess Of Unspecified Sites 01/16/2011 REFUGIO TRANSLATION DIRECTOR, LIDIA A 919.4 Insect Bite Nonvenomous Of [...] And Abscess Of Unspecified Sites 01/16/2011 REFUGIO TRANSLATION DIRECTOR, LIDIA A 919.4 Insect Bite Nonvenomous Of Other Multiple And Unspecified Sites Without Infection 04/09/2011 626.8 DUB 04/09/2011 626.8 Dub 04/09/2011 626.8 Dub 04/09/2011 626.8 Dub 04/09/2011 GARY RENO MD 626.8 Dub 04/09/2011 626.8 Dub 04/09/2011 LUEVANO DO, MIKE K 626.8 Dub 04/09/2011 626.8 Dub 04/09/2011 626.8 Dub 04/09/2011 626.8 Dub 04/09/2011 GARY RENO MD 626.8 Dub 04/09/2011 REFUGIO TRANSLATION DIRECTOR, LIDIA A 626.8 Dub 04/09/2011 REFUGIO TRANSLATION DIRECTOR, LIDIA A 626.8 Dub 04/09/2011 REFUGIO TRANSLATION DIRECTOR, LIDIA A 626.8 Dub 04/09/2011 REFUGIO TRANSLATION DIRECTOR, LIDIA A 626.8 Dub 04/09/2011 REFUGIO TRANSLATION DIRECTOR, LIDIA A 626.8 Dub 04/09/2011 REFUGIO TRANSLATION DIRECTOR, LIDIA A 626.8 Dub 04/09/2011 AZAEL BECKER, RAYMUNDO 626.8 Dub 04/09/2011 LUEVANO DO, MIKE K 626.8 Dub 04/09/2011 REFUGIO TRANSLATION DIRECTOR, LIDIA A 626.8 Dub 04/09/2011 LUEVANO DO, MIKE K 626.8 Dub 04/09/2011 LUEVANO DO, MIKE K 626.8 Dub 04/09/2011 REFUGIO TRANSLATION DIRECTOR, LIDIA A 626.8 Dub 04/23/2011 599.0 URINARY [...] 04/23/2011 789.00 Abdominal Pain Unspecified Site 04/23/2011 LUEVANO [...] 789.00 Abdominal Pain Unspecified Site 04/23/2011 REFUGIO TRANSLATION DIRECTOR, LIDIA A 599.0 Urinary Tract Infection 04/23/2011 REFUGIO TRANSLATION DIRECTOR, LIDIA A 789.00 Abdominal Pain Unspecified Site 04/23/2011 REFUGIO TRANSLATION DIRECTOR, LIDIA A 599.0 Urinary Tract Infection 04/23/2011 REFUGIO TRANSLATION DIRECTOR, LIDIA A 789.00 Abdominal Pain Unspecified Site 04/23/2011 REFUGIO TRANSLATION DIRECTOR, LIDIA A 599.0 Urinary Tract Infection 04/23/2011 REFUGIO TRANSLATION DIRECTOR, LIDIA A 789.00 Abdominal Pain Unspecified Site 04/23/2011 REFUGIO TRANSLATION DIRECTOR, LIDIA A 599.0 Urinary Tract Infection 04/23/2011 REFUGIO TRANSLATION DIRECTOR, LIDIA A 789.00 Abdominal Pain Unspecified Site 04/23/2011 REFUGIO TRANSLATION DIRECTOR, LIDIA A 599.0 Urinary Tract Infection 04/23/2011 REFUGIO TRANSLATION DIRECTOR, LIDIA A 789.00 Abdominal Pain Unspecified Site 04/23/2011 REFUGIO TRANSLATION DIRECTOR, LIDIA A 599.0 Urinary Tract Infection 04/23/2011 REFUGIO TRANSLATION DIRECTOR, LIDIA A 789.00 Abdominal Pain Unspecified Site 04/23/2011 AZAEL BECKER, RAYMUNDO 599.0 Urinary Tract Infection 04/23/2011 AZAEL BECKER, RAYMUNDO 789.00 Abdominal Pain Unspecified Site 04/23/2011 LUEVANO DO, MIKE K 599.0 Urinary Tract Infection 04/23/2011 LUEVANO DO, MIKE K 789.00 Abdominal Pain Unspecified Site 04/23/2011 REFUGIO TRANSLATION DIRECTOR, LIDIA A 599.0 Urinary Tract Infection 04/23/2011 REFUGIO TRANSLATION DIRECTOR, LIDIA A 789.00 Abdominal Pain Unspecified Site 04/23/2011 LUEVANO DO, MIKE K 599.0 Urinary Tract Infection 04/23/2011 LUEVANO DO, MIKE K 789.00 Abdominal Pain Unspecified Site 04/23/2011 LUEVANO DO, MIKE K 599.0 Urinary Tract Infection 04/23/2011 LUEVANO DO, MIKE K 789.00 Abdominal Pain Unspecified Site 04/23/2011 REFUGIOJODIE TON, LIDIA A 599.0 Urinary Tract Infection 04/23/2011 REFUGIO TON, LIDIA A 789.00 Abdominal Pain Unspecified Site 07/10/2011 [...] RENO MD 626.4 IRREGULAR MENSTRUAL CYCLE 07/10/2011 SHADIA BECKER, GARY V25.9 Contraception Management 07/10/2011 GARY RENO MD V65.45 Std Counseling 07/10/2011 SHADIA BECKER, GARY V69.2 HIGH-RISK SEXUAL BEHAVIOR 07/10/2011 SHADIA BECKER, GARY V72.41 Test Negative Result 07/10/2011 GARY RENO MD V74.5 Std Screen 07/10/2011 626.4 IRREGULAR MENSTRUAL CYCLE 07/10/2011 V25.9 Contraception Management 07/10/2011 V65.45 Std Counseling 07/10/2011 V69.2 HIGH-RISK SEXUAL BEHAVIOR 07/10/2011 V72.41 Test Negative Result 07/10/2011 V74.5 Std Screen 07/10/2011 CHLOÉ GARSIAMIKE K 626.4 IRREGULAR MENSTRUAL CYCLE 07/10/2011 CHLOÉ GARSIAMIKE K V25.9 Contraception Management 07/10/2011 CHLOÉ GARSIAMIKE K V65.45 Std Counseling 07/10/2011 LUEVANO MIKE GARSIA K V69.2 HIGH-RISK SEXUAL BEHAVIOR 07/10/2011 CHLOÉ GARSIAMIKE K V72.41 Test Negative Result 07/10/2011 CHLOÉ GARSIAMIKE K V74.5 Std Screen 07/10/2011 626.4 IRREGULAR [...] RENO MD 626.4 IRREGULAR MENSTRUAL CYCLE 07/10/2011 SHADIA BECKER, GARY V25.9 Contraception Management 07/10/2011 SHADIA BECKER, GARY V65.45 Std Counseling 07/10/2011 SHADIA BECKER, GARY V69.2 HIGH-RISK SEXUAL BEHAVIOR 07/10/2011 SHADIA BECKER, GARY V72.41 Test Negative Result 07/10/2011 SHADIA BECKER, GARY V74.5 Std Screen 07/10/2011 REFUGIOLIDIA FELICIANO APRN A 626.4 IRREGULAR MENSTRUAL CYCLE 07/10/2011 LIDIA HUFF APRN A V25.9 Contraception Management 07/10/2011 LIDIA HUFF APRN A V65.45 Std Counseling 07/10/2011 LIDIA HUFF APRN A V69.2 HIGH-RISK SEXUAL BEHAVIOR 07/10/2011 LIDIA HUFF APRN A V72.41 Test Negative Result 07/10/2011 LIDIA HUFF APRN A V74.5 Std Screen 07/10/2011 LIDIA HUFF APRN [...] HUFF APRN A V74.5 Std Screen 07/10/2011 LIDIA HUFF APRN A 626.4 IRREGULAR MENSTRUAL CYCLE 07/10/2011 LIDIA HUFF APRN A V25.9 Contraception Management 07/10/2011 LIDIA HUFF APRN A V65.45 Std Counseling 07/10/2011 LIDIA HUFF APRN A V69.2 HIGH-RISK SEXUAL BEHAVIOR 07/10/2011 LIDIA HUFF APRN A V72.41 Test Negative Result 07/10/2011 LIDIA HUFF APRN A V74.5 Std Screen 07/10/2011 LIDIA HUFF APRN A 626.4 IRREGULAR MENSTRUAL CYCLE 07/10/2011 LIDIA HUFF APRN A V25.9 Contraception Management 07/10/2011 LIDIA HUFF APRN A V65.45 Std Counseling 07/10/2011 LIDIA HUFF APRN A V69.2 HIGH-RISK SEXUAL BEHAVIOR 07/10/2011 LIDIA HUFF APRN A V72.41 Test Negative Result 07/10/2011 LIDIA HUFF APRN A V74.5 Std Screen 07/10/2011 LIDIA HUFF APRN A 626.4 IRREGULAR MENSTRUAL CYCLE 07/10/2011 LIDIA HUFF APRN A V25.9 Contraception Management 07/10/2011 LIDIA HUFF APRN A V65.45 Std Counseling 07/10/2011 LIDIA HUFF APRN A V69.2 HIGH-RISK SEXUAL BEHAVIOR 07/10/2011 LIDIA HUFF APRN A V72.41 Test Negative Result 07/10/2011 LIDIA HUFF APRN A V74.5 Std Screen 07/10/2011 DANIEL ADDISON MDISTA 626.4 IRREGULAR MENSTRUAL CYCLE 07/10/2011 RAYMUNDO ADDISON MD V25.9 Contraception Management 07/10/2011 RAYMUNDO ADDISON MD V65.45 Std Counseling 07/10/2011 RAYMUNDO ADDISON MD V69.2 HIGH-RISK SEXUAL BEHAVIOR 07/10/2011 RAYMUNDO ADDISON MD V72.41 Test Negative Result 07/10/2011 RAYMUNDO ADDISON MD V74.5 Std Screen 07/10/2011 MIKE LUEVANO DO 626.4 IRREGULAR MENSTRUAL CYCLE 07/10/2011 LUEVANO DO, MIKE K V25.9 Contraception Management 07/10/2011 LUEVANO DO MIKE K V65.45 Std Counseling 07/10/2011 LUEVANO DOSHAWNA K V69.2 HIGH-RISK SEXUAL BEHAVIOR 07/10/2011 CHLOÉ DOSHAWNA K V72.41 Test Negative Result 07/10/2011 CHLOÉ DO MIKE K V74.5 Std Screen 07/10/2011 REFUGIO TRANSLATION DIRECTOR, LIDIA A 626.4 IRREGULAR MENSTRUAL CYCLE 07/10/2011 REFUGIO TRANSLATION DIRECTOR, LIDIA A V25.9 Contraception Management 07/10/2011 REFUGIO TRANSLATION DIRECTOR, LIDIA A V65.45 Std Counseling 07/10/2011 REFUGIO TRANSLATION DIRECTOR, LIDIA A V69.2 HIGH-RISK SEXUAL BEHAVIOR 07/10/2011 REFUGIO TRANSLATION DIRECTOR, LIDIA A V72.41 Test Negative Result 07/10/2011 REFUGIO TRANSLATION DIRECTOR, LIDIA A V74.5 Std Screen 07/10/2011 LUEVANO DO MIKE K 626.4 IRREGULAR MENSTRUAL CYCLE 07/10/2011 CHLOÉ DOSHAWNA K V25.9 Contraception Management 07/10/2011 CHLOÉ DO MIKE K V65.45 Std Counseling 07/10/2011 LUEVANO DO MIKE K V69.2 HIGH-RISK SEXUAL BEHAVIOR 07/10/2011 CHLOÉ DOSHAWNA K V72.41 Test Negative Result 07/10/2011 CHLOÉ DO MIKE K V74.5 Std Screen 07/10/2011 LUEVANO DO MIKE K 626.4 IRREGULAR MENSTRUAL CYCLE 07/10/2011 CHLOÉ DOSHAWNA K V25.9 Contraception Management 07/10/2011 CHLÉO DOSHAWNA K V65.45 Std Counseling 07/10/2011 CHLOÉ DO MIKE K V69.2 HIGH-RISK SEXUAL BEHAVIOR 07/10/2011 LUEVANO DO MIKE K V72.41 Test Negative Result 07/10/2011 LUEVANO DO MIKE K V74.5 Std Screen 07/10/2011 REFUGIO TRANSLATION DIRECTOR, LIDIA A 626.4 IRREGULAR MENSTRUAL CYCLE 07/10/2011 REFUGIO TRANSLATION DIRECTOR, LIDIA A V25.9 Contraception Management 07/10/2011 REFUGIO TRANSLATION DIRECTOR, LIDIA A V65.45 Std Counseling 07/10/2011 REFUGIO TRANSLATION DIRECTOR, LIDIA A V69.2 HIGH-RISK SEXUAL BEHAVIOR 07/10/2011 REFUGIO TRANSLATION DIRECTOR, LIDIA A V72.41 Test Negative Result 07/10/2011 REFUGIOLIDIA Garsia APRN A V74.5 Std Screen 08/30/2011 256.4 POLYCYSTIC OVARIES 08/30/2011 256.4 POLYCYSTIC OVARIES 08/30/2011 256.4 POLYCYSTIC OVARIES 08/30/2011 256.4 POLYCYSTIC OVARIES 08/30/2011 GARY RENO MD 256.4 POLYCYSTIC OVARIES 08/30/2011 256.4 POLYCYSTIC OVARIES 08/30/2011 MIKE LUEVANO DO K 256.4 POLYCYSTIC OVARIES 08/30/2011 256.4 POLYCYSTIC OVARIES 08/30/2011 256.4 POLYCYSTIC OVARIES 08/30/2011 256.4 POLYCYSTIC OVARIES 08/30/2011 GARY RENO MD 256.4 POLYCYSTIC OVARIES 08/30/2011 REFUGIO MEDINA, LIDIA A 256.4 POLYCYSTIC OVARIES 08/30/2011 REFUGIO MEDINA LIDIA A 256.4 POLYCYSTIC OVARIES 08/30/2011 REFUGIOAdy MEDINA LIDIA A 256.4 POLYCYSTIC OVARIES 08/30/2011 REFUGIO APRN, LIDIA A 256.4 POLYCYSTIC OVARIES 08/30/2011 REFUGIO APRN, LIDIA A 256.4 POLYCYSTIC OVARIES 08/30/2011 REFUGIO APRN, LIDIA A 256.4 POLYCYSTIC OVARIES 08/30/2011 AZAEL BECKER, RAYMUNDO 256.4 POLYCYSTIC OVARIES 08/30/2011 CHLOÉ GARSIA MIKE K 256.4 POLYCYSTIC OVARIES 08/30/2011 REFUGIO APRN, LIDIA A 256.4 POLYCYSTIC OVARIES 08/30/2011 CHLOÉ GARSIA MIKE K 256.4 POLYCYSTIC OVARIES 08/30/2011 CHLOÉ GARSIA MIKE K 256.4 POLYCYSTIC OVARIES 08/30/2011 REFUGIO APRN, LIDIA A 256.4 POLYCYSTIC OVARIES 08/30/2011 Ot 789.06 ABDOMINAL PAIN, EPIGASTRIC 09/25/2011 564.1 IRRITABLE BOWEL SYNDROME 09/25/2011 564.1 IRRITABLE BOWEL SYNDROME 09/25/2011 564.1 IRRITABLE BOWEL SYNDROME 09/25/2011 564.1 IRRITABLE BOWEL SYNDROME 09/25/2011 GARY RENO MD 564.1 IRRITABLE BOWEL SYNDROME 09/25/2011 564.1 IRRITABLE BOWEL SYNDROME 09/25/2011 LUEVANO DO, MIKE K 564.1 IRRITABLE BOWEL SYNDROME 09/25/2011 564.1 IRRITABLE BOWEL SYNDROME 09/25/2011 564.1 IRRITABLE BOWEL SYNDROME 09/25/2011 564.1 IRRITABLE BOWEL SYNDROME 09/25/2011 GARY RENO MD 564.1 IRRITABLE BOWEL SYNDROME 09/25/2011 REFUGIO TRANSLATION DIRECTOR, LIDIA A 564.1 IRRITABLE BOWEL SYNDROME 09/25/2011 REFUGIO TRANSLATION DIRECTOR, LIDIA A 564.1 IRRITABLE BOWEL SYNDROME 09/25/2011 REFUGIO TRANSLATION DIRECTOR, LIDIA A 564.1 IRRITABLE BOWEL SYNDROME 09/25/2011 REFUGIO TRANSLATION DIRECTOR, LIDIA A 564.1 IRRITABLE BOWEL SYNDROME 09/25/2011 REFUGIO TRANSLATION DIRECTOR, LIDIA A 564.1 IRRITABLE BOWEL SYNDROME 09/25/2011 REFUGIO TRANSLATION DIRECTOR, LIDIA A 564.1 IRRITABLE BOWEL SYNDROME 09/25/2011 AZAEL BECKER, RAYMUNDO 564.1 IRRITABLE BOWEL SYNDROME 09/25/2011 MIKE LUEVANO DO K 564.1 IRRITABLE BOWEL SYNDROME 09/25/2011 REFUGIO APRN, LIDIA A 564.1 IRRITABLE BOWEL SYNDROME 09/25/2011 SHAWN LUEVANO DOA K 564.1 IRRITABLE BOWEL SYNDROME 09/25/2011 LUEVANO SHAWN GARSIAA K 564.1 IRRITABLE BOWEL SYNDROME 09/25/2011 REFUGIO APRN, LIDIA A 564.1 IRRITABLE BOWEL SYNDROME 09/27/2011 V25.49 CONTRACEPTION SURVEILLANCE (REPEAT RX) 09/27/2011 V25.49 Contraception Surveillance (repeat Rx) 09/27/2011 V25.49 Contraception Surveillance (repeat Rx) 09/27/2011 V25.49 Contraception Surveillance (repeat Rx) 09/27/2011 GARY RENO MD V25.49 Contraception Surveillance (repeat Rx) 09/27/2011 V25.49 Contraception Surveillance (repeat Rx) 09/27/2011 MIKE LUEVANO DO V25.49 Contraception Surveillance (repeat Rx) 09/27/2011 V25.49 Contraception Surveillance (repeat Rx) 09/27/2011 V25.49 Contraception Surveillance (repeat Rx) 09/27/2011 V25.49 Contraception Surveillance (repeat Rx) 09/27/2011 GARY RENO MD V25.49 Contraception Surveillance (repeat Rx) 09/27/2011 REFUGIO TON, LIDIA A V25.49 Contraception Surveillance (repeat Rx) 09/27/2011 REFUGIO TRANSLATION DIRECTOR, LIDIA A V25.49 Contraception Surveillance (repeat Rx) 09/27/2011 REFUGIO TRANSLATION DIRECTOR, LIDIA A V25.49 Contraception Surveillance (repeat Rx) 09/27/2011 REFUGIO TRANSLATION DIRECTOR, LIDIA A V25.49 Contraception Surveillance (repeat Rx) 09/27/2011 REFUGIO TRANSLATION DIRECTOR, LIDIA A V25.49 Contraception Surveillance (repeat Rx) 09/27/2011 REFUGIO TRANSLATION DIRECTOR, LIDIA A V25.49 Contraception Surveillance (repeat Rx) 09/27/2011 RAYMUNDO ADDISON MD V25.49 Contraception Surveillance (repeat Rx) 09/27/2011 MIKE LUEVANO DO V25.49 Contraception Surveillance (repeat Rx) 09/27/2011 REFUGIO APRN, LIDIA A V25.49 Contraception Surveillance (repeat Rx) 09/27/2011 MIKE LUEVANO DO V25.49 Contraception Surveillance (repeat Rx) 09/27/2011 MIKE LUEVANO DO V25.49 Contraception Surveillance (repeat Rx) 09/27/2011 REFUGIO TRANSLATION DIRECTOR, LIDIA A V25.49 Contraception Surveillance (repeat Rx) 01/16/2012 [...] RENO MD 373.11 Stye (hordeolum Externum) 01/16/2012 REFUGIO MEDINA, LIDIA A 373.11 Stye (hordeolum Externum) 01/16/2012 REFUGIO TRANSLATION DIRECTOR, LIDIA A 373.11 Stye (hordeolum Externum) 01/16/2012 REFUGIO TRANSLATION DIRECTOR, LIDIA A 373.11 Stye (hordeolum Externum) 01/16/2012 REFUGIO TRANSLATION DIRECTOR, LIDIA A 373.11 Stye (hordeolum Externum) 01/16/2012 REFUGIO TRANSLATION DIRECTOR, LIDIA A 373.11 Stye (hordeolum Externum) 01/16/2012 REFUGIO TRANSLATION DIRECTOR, LIDIA A 373.11 Stye (hordeolum Externum) 01/16/2012 AZAEL BECKER, RAYMUNDO 373.11 Stye (hordeolum Externum) 01/16/2012 MIKE LUEVANO DO 373.11 Stye (hordeolum Externum) 01/16/2012 REFUGIO MEDINA, LIDIA A 373.11 Stye (hordeolum Externum) 01/16/2012 MIKE LUEVANO DO K 373.11 Stye (hordeolum Externum) 01/16/2012 MIKE LUEVANO DO K 373.11 Stye (hordeolum Externum) 01/16/2012 REFUGIO MEDINA, LIDIA A 373.11 Stye (hordeolum Externum) 03/07/2012 462 PHARYNGITIS ACUTE 03/07/2012 462 Pharyngitis Acute 03/07/2012 462 Pharyngitis Acute 03/07/2012 462 Pharyngitis Acute 03/07/2012 GARY RENO MD 46Neto Pharyngitis Acute 03/07/2012 462 Pharyngitis Acute 03/07/2012 MIKE LUEVANO DO 462 Pharyngitis Acute 03/07/2012 462 Pharyngitis Acute 03/07/2012 462 Pharyngitis Acute 03/07/2012 462 Pharyngitis Acute 03/07/2012 GARY RENO MD 462 Pharyngitis Acute 03/07/2012 LIDIA HUFF APRN A 462 Pharyngitis Acute 03/07/2012 LIDIA HUFF APRN A 462 Pharyngitis Acute 03/07/2012 JOSEFINA HUFF APRNIDI A 462 Pharyngitis Acute 03/07/2012 REFUGIO MEDINA, LIDIA A 462 Pharyngitis Acute 03/07/2012 REFUGIO MEDINA, LIDIA A 462 Pharyngitis Acute 03/07/2012 REFUGIO MEDINA, LIDIA A 462 Pharyngitis Acute 03/07/2012 RAYMUNDO ADDISON MD 462 Pharyngitis Acute 03/07/2012 CHLOÉ GARSIAMIKE K 462 Pharyngitis Acute 03/07/2012 LIDIA HUFF APRN A 462 Pharyngitis Acute 03/07/2012 LUEVANO SHAWN GARSIAA K 462 Pharyngitis Acute 03/07/2012 LUEVANO MIKE K 462 Pharyngitis Acute 03/07/2012 LIDIA HUFF APRN A 462 Pharyngitis Acute 06/14/2012 V25.09 CONTRACEPTIVE [...] V25.09 Contraceptive Counseling - General 06/14/2012 REFUGIO MEDINA, LIDIA A V25.09 Contraceptive Counseling - General [...] APRN A V25.09 Contraceptive Counseling - General 06/14/2012 [...] AFFECTIVE DISORDER SINGLE EPISODE UNSPECIFIED DEGREE 06/17/2012 GRAY RENO MD 296.20 MAJOR DEPRESSIVE AFFECTIVE DISORDER SINGLE EPISODE UNSPECIFIED DEGREE 06/17/2012 LIDIA HUFF APRN A 296.20 MAJOR DEPRESSIVE AFFECTIVE DISORDER SINGLE EPISODE UNSPECIFIED DEGREE 06/17/2012 LIDIA HUFF APRN A 296.20 MAJOR DEPRESSIVE AFFECTIVE DISORDER SINGLE EPISODE UNSPECIFIED DEGREE 06/17/2012 LIDIA HUFF APRN A 296.20 MAJOR DEPRESSIVE AFFECTIVE DISORDER SINGLE EPISODE UNSPECIFIED DEGREE 06/17/2012 LIDIA HUFF APRN A 296.20 MAJOR DEPRESSIVE AFFECTIVE DISORDER SINGLE EPISODE UNSPECIFIED DEGREE 06/17/2012 LIDIA HUFF APRN A 296.20 MAJOR DEPRESSIVE AFFECTIVE DISORDER SINGLE EPISODE UNSPECIFIED DEGREE 06/17/2012 LIDIA HUFF APRN A 296.20 MAJOR DEPRESSIVE AFFECTIVE DISORDER SINGLE EPISODE UNSPECIFIED DEGREE 06/17/2012 RAYMUNDO ADDISON MD 296.20 MAJOR DEPRESSIVE AFFECTIVE DISORDER SINGLE EPISODE UNSPECIFIED DEGREE 06/17/2012 MIKE LUEVANO DO 296.20 MAJOR DEPRESSIVE AFFECTIVE DISORDER SINGLE EPISODE UNSPECIFIED DEGREE 06/17/2012 REFUGIO TRANSLATION DIRECTOR, LIDIA A 296.20 MAJOR DEPRESSIVE AFFECTIVE DISORDER SINGLE EPISODE UNSPECIFIED DEGREE 06/17/2012 MIKE LUEVANO DO 296.20 MAJOR DEPRESSIVE AFFECTIVE DISORDER SINGLE EPISODE UNSPECIFIED DEGREE 06/17/2012 MIKE LUEVANO DO 296.20 MAJOR DEPRESSIVE AFFECTIVE DISORDER SINGLE EPISODE UNSPECIFIED DEGREE 06/17/2012 REFUGIO TRANSLATION DIRECTOR, LIDIA A 296.20 MAJOR DEPRESSIVE AFFECTIVE DISORDER [...] MD 787.01 Nausea With Vomiting 06/25/2012 REFUGIO TRANSLATION DIRECTOR, LIDIA A 008.8 Gastroenteritis, Viral 06/25/2012 REFUGIO TRANSLATION DIRECTOR, LIDIA A 787.01 Nausea With Vomiting 06/25/2012 REFUGIO TRANSLATION DIRECTOR, LIDIA A 008.8 Gastroenteritis, Viral 06/25/2012 REFUGIO TRANSLATION DIRECTOR, LIDIA A 787.01 Nausea With Vomiting 06/25/2012 REFUGIO TRANSLATION DIRECTOR, LIDIA A 008.8 Gastroenteritis, Viral 06/25/2012 REFUGIO TRANSLATION DIRECTOR, LIDIA A 787.01 Nausea With Vomiting 06/25/2012 REFUGIO TRANSLATION DIRECTOR, LIDIA A 008.8 Gastroenteritis, Viral 06/25/2012 REFUGIO TRANSLATION DIRECTOR, LIDIA A 787.01 Nausea With Vomiting 06/25/2012 REFUGIO TRANSLATION DIRECTOR, LIDIA A 008.8 Gastroenteritis, Viral 06/25/2012 REFUGIO TRANSLATION DIRECTOR, LIDIA A 787.01 Nausea With Vomiting 06/25/2012 REFUGIO TRANSLATION DIRECTOR, LIDIA A 008.8 Gastroenteritis, Viral 06/25/2012 REFUGIO TRANSLATION DIRECTOR, LIDIA A 787.01 Nausea With Vomiting 06/25/2012 RAYMUNDO ADDISON MD 008.8 Gastroenteritis, Viral 06/25/2012 AZAEL BECKER RAYMUNDO 787.01 Nausea With Vomiting 06/25/2012 CHLOÉ GARSIA MIKE K 008.8 Gastroenteritis, Viral 06/25/2012 LUEVANO DO MIKE K 787.01 Nausea With Vomiting 06/25/2012 REFUGIOAdy MEDINA LIDIA A 008.8 Gastroenteritis, Viral 06/25/2012 REFUGIO APRN, LIDIA A 787.01 Nausea With Vomiting 06/25/2012 CHLOÉ GARSIA MIKE K 008.8 Gastroenteritis, Viral 06/25/2012 SHAWN LUEVANO DOA K 787.01 Nausea With Vomiting 06/25/2012 CHLOÉ GARSIA MIKE K 008.8 Gastroenteritis, Viral 06/25/2012 LUEVANO DO, MIKE K 787.01 Nausea With Vomiting 06/25/2012 REFUGIO APRN, LIDIA A 008.8 Gastroenteritis, Viral 06/25/2012 REFUGIO APRN, [...] Contraceptive Management 07/02/2012 V74.5 STD SCREEN 07/02/2012 SHADIA BECKER, GARY V25.9 Gynecologic Services Contraceptive Management 07/02/2012 SHADIA BECKER, GARY V74.5 STD SCREEN 07/02/2012 REFUGIO MEDINA, LIDIA A V25.9 Gynecologic Services Contraceptive Management 07/02/2012 REFUGIO TON, LIDIA A V74.5 STD SCREEN 07/02/2012 REFUGIO TRANSLATION DIRECTOR, LIDIA A V25.9 Gynecologic Services Contraceptive Management 07/02/2012 REFUGIO TRANSLATION DIRECTOR, LIDIA A V74.5 STD SCREEN 07/02/2012 REFUGIO TRANSLATION DIRECTOR, LIDIA A V25.9 Gynecologic Services Contraceptive Management 07/02/2012 REFUGIO TRANSLATION DIRECTOR, LIDIA A V74.5 STD SCREEN 07/02/2012 REFUGIO TRANSLATION DIRECTOR, LIDIA A V25.9 Gynecologic Services Contraceptive Management 07/02/2012 REFUGIO TON, LIDIA A V74.5 STD SCREEN 07/02/2012 REFUGIO TRANSLATION DIRECTOR, LIDIA A V25.9 Gynecologic Services Contraceptive Management 07/02/2012 REFUGIO TON, LIDIA A V74.5 STD SCREEN 07/02/2012 REFUGIO TON, LIDIA A V25.9 Gynecologic Services Contraceptive Management 07/02/2012 REFUGIO TRANSLATION DIRECTOR, LIDIA A V74.5 STD SCREEN 07/02/2012 AZAEL BECKER, RAYMUNDO V25.9 Gynecologic Services Contraceptive Management 07/02/2012 AZAEL BECKER, RAYMUNDO V74.5 STD SCREEN 07/02/2012 CHLOÉ GARSIA MIKE K V25.9 Gynecologic Services Contraceptive Management 07/02/2012 CHLOÉ GARSIA MIKE K V74.5 STD SCREEN 07/02/2012 REFUGIO TON, LIDIA A V25.9 Gynecologic Services Contraceptive Management 07/02/2012 REFUGIO TON, LIDIA A V74.5 STD SCREEN 07/02/2012 CHLOÉ GARSIA MIKE K V25.9 Gynecologic Services Contraceptive Management 07/02/2012 LUEVANO DO MIKE K V74.5 STD SCREEN 07/02/2012 LUEVANO DO MIKE K V25.9 Gynecologic Services Contraceptive Management 07/02/2012 LUEVANO DO MIKE K V74.5 STD SCREEN 07/02/2012 REFUGIO TON, LIDIA A V25.9 Gynecologic Services Contraceptive Management 07/02/2012 REFUGIO TRANSLATION DIRECTOR, LIDIA A V74.5 STD SCREEN 07/03/2012 SHADIA BECKER, GARY 787.03 VOMITING ALONE 07/03/2012 SHADIA BECKER, GARY 789.00 ABDOMINAL PAIN UNSPECIFIED SITE 07/03/2012 787.03 VOMITING ALONE 07/03/2012 789.00 ABDOMINAL PAIN UNSPECIFIED SITE 07/03/2012 LUEVANO MIKE GARSIA K 787.03 VOMITING ALONE 07/03/2012 LUEVANO DOMIKE K 789.00 ABDOMINAL PAIN UNSPECIFIED SITE 07/03/2012 787.03 VOMITING ALONE 07/03/2012 789.00 ABDOMINAL PAIN UNSPECIFIED SITE 07/03/2012 787.03 vomiting 07/03/2012 789.00 ABDOMINAL PAIN UNSPECIFIED SITE 07/03/2012 787.03 vomiting 07/03/2012 789.00 ABDOMINAL PAIN UNSPECIFIED SITE 07/03/2012 SHADIA BECKER, GARY 787.03 vomiting 07/03/2012 SHADIA BECKER, GARY 789.00 ABDOMINAL PAIN UNSPECIFIED SITE 07/03/2012 REFUGIO TRANSLATION DIRECTOR, LIDIA A 787.03 vomiting 07/03/2012 REFUGIO TRANSLATION DIRECTOR, LIDIA A 789.00 ABDOMINAL PAIN UNSPECIFIED SITE 07/03/2012 REFUGIO TRANSLATION DIRECTOR, LIDIA A 787.03 vomiting 07/03/2012 REFUGIO TRANSLATION DIRECTOR, LIDIA A 789.00 ABDOMINAL PAIN UNSPECIFIED SITE 07/03/2012 REFUGIO TRANSLATION DIRECTOR, LIDIA A 787.03 VOMITING 07/03/2012 REFUGIO TRANSLATION DIRECTOR, LIDIA A 789.00 ABDOMINAL PAIN UNSPECIFIED SITE 07/03/2012 REFUGIO TRANSLATION DIRECTOR, LIDIA A 787.03 VOMITING 07/03/2012 REFUGIO TRANSLATION DIRECTOR, LIDIA A 789.00 ABDOMINAL PAIN UNSPECIFIED SITE 07/03/2012 REFUGIO TRANSLATION DIRECTOR, LIDIA A 787.03 VOMITING 07/03/2012 REFUGIO TRANSLATION DIRECTOR, LIDIA A 789.00 ABDOMINAL PAIN UNSPECIFIED SITE 07/03/2012 REFUGIO TRANSLATION DIRECTOR, LIDIA A 787.03 VOMITING 07/03/2012 REFUGIO TRANSLATION DIRECTOR, LIDIA A 789.00 ABDOMINAL PAIN UNSPECIFIED SITE 07/03/2012 RAYMUNDO ADDISON MD 787.03 VOMITING 07/03/2012 AZAEL BECKER, RAYMUNDO 789.00 ABDOMINAL PAIN UNSPECIFIED SITE 07/03/2012 LUEVANO DO, MIKE K 787.03 VOMITING 07/03/2012 LUEVANO DO, MIEK K 789.00 ABDOMINAL PAIN UNSPECIFIED SITE 07/03/2012 REFUGIO MEDINA, LIDIA A 787.03 VOMITING 07/03/2012 REFUGIO TRANSLATION DIRECTOR, LIDIA A 789.00 ABDOMINAL PAIN UNSPECIFIED SITE 07/03/2012 LUEVANO DO, MIKE K 787.03 VOMITING 07/03/2012 LUEVANO DO, MIKE K 789.00 ABDOMINAL PAIN UNSPECIFIED SITE 07/03/2012 LUEVANO DO, MIKE K 787.03 VOMITING 07/03/2012 LUEVANO DO, MIKE K 789.00 ABDOMINAL PAIN UNSPECIFIED SITE 07/03/2012 JOSEFINA HUFF APRNIDI A 787.03 VOMITING 07/03/2012 REFUGIO MEDINA, LIDIA A 789.00 ABDOMINAL PAIN UNSPECIFIED SITE 09/08/2012 614.3 ACUTE PARAMETRITIS AND PELVIC CELLULITIS 09/08/2012 LUEVANO DO, MIKE K 614.3 ACUTE PARAMETRITIS AND PELVIC CELLULITIS 09/08/2012 614.3 ACUTE PARAMETRITIS AND PELVIC CELLULITIS 09/08/2012 614.3 ACUTE PARAMETRITIS AND PELVIC CELLULITIS 09/08/2012 614.3 ACUTE PARAMETRITIS AND PELVIC CELLULITIS 09/08/2012 GARY RENO MD 614.3 ACUTE PARAMETRITIS AND PELVIC CELLULITIS 09/08/2012 REFUGIO MEDINA, LIDIA A 614.3 ACUTE PARAMETRITIS AND PELVIC [...] ACUTE PARAMETRITIS AND PELVIC CELLULITIS 09/08/2012 LUEVANO , MIKE K 614.3 ACUTE PARAMETRITIS AND PELVIC CELLULITIS 09/08/2012 REFUGIO TRANSLATION DIRECTOR, LIDIA A 614.3 ACUTE PARAMETRITIS AND PELVIC CELLULITIS 09/18/2012 CHLOÉ GARSIA MIKE K 008.8 GASTROENTERITIS, VIRAL 09/18/2012 008.8 GASTROENTERITIS, VIRAL 09/18/2012 008.8 GASTROENTERITIS, VIRAL 09/18/2012 008.8 GASTROENTERITIS, VIRAL 09/18/2012 GARY RENO MD 008.8 GASTROENTERITIS, VIRAL 09/18/2012 REFUGIO MEDINA, LIDIA A 008.8 GASTROENTERITIS, VIRAL 09/18/2012 REFUGIO TON, LIDIA A 008.8 GASTROENTERITIS, VIRAL 09/18/2012 REFUGIO TRANSLATION DIRECTOR, LIDIA A 008.8 GASTROENTERITIS, VIRAL 09/18/2012 REFUGIO TRANSLATION DIRECTOR, LIDIA A 008.8 GASTROENTERITIS, VIRAL 09/18/2012 REFUGIO TRANSLATION DIRECTOR, LIDIA A 008.8 GASTROENTERITIS, VIRAL 09/18/2012 REFUGIO TRANSLATION DIRECTOR, LIDIA A 008.8 GASTROENTERITIS, VIRAL 09/18/2012 AZAEL BECKER, RAYMUNDO 008.8 GASTROENTERITIS, VIRAL 09/18/2012 CHLOÉ GARSIA MIKE K 008.8 GASTROENTERITIS, VIRAL 09/18/2012 REFUGIO TRANSLATION DIRECTOR, LIDIA A 008.8 GASTROENTERITIS, VIRAL 09/18/2012 LUEVANO DO MIKE K 008.8 GASTROENTERITIS, VIRAL 09/18/2012 LUEVANO DO MIKE K 008.8 GASTROENTERITIS, VIRAL 09/18/2012 REFUGIO TRANSLATION DIRECTOR, LIDIA A 008.8 GASTROENTERITIS, VIRAL 10/02/2012 465.9 UPPER RESPIRATORY INFECTION 10/02/2012 465.9 UPPER RESPIRATORY INFECTION 10/02/2012 465.9 UPPER RESPIRATORY INFECTION 10/02/2012 GARY RENO MD 465.9 UPPER RESPIRATORY INFECTION 10/02/2012 LIDIA HUFF APRN A 465.9 UPPER RESPIRATORY INFECTION 10/02/2012 REFUGIO TRANSLATION DIRECTOR, LIDIA A 465.9 UPPER RESPIRATORY INFECTION 10/02/2012 REFUGIO TRANSLATION DIRECTOR, LIDIA A 465.9 UPPER RESPIRATORY INFECTION 10/02/2012 REFUGIO TRANSLATION DIRECTOR, LIDIA A 465.9 UPPER RESPIRATORY INFECTION 10/02/2012 REFUGIO TRANSLATION DIRECTOR, LIDIA A 465.9 UPPER RESPIRATORY INFECTION 10/02/2012 REFUGIO TRANSLATION DIRECTOR, LIDIA A 465.9 UPPER RESPIRATORY INFECTION 10/02/2012 AZAEL BECKER, RAYMUNDO 465.9 UPPER RESPIRATORY INFECTION 10/02/2012 LUEVANO DO, MIKE K 465.9 UPPER RESPIRATORY INFECTION 10/02/2012 REFUGIO TRANSLATION DIRECTOR, LIDIA A 465.9 UPPER RESPIRATORY INFECTION 10/02/2012 LUEVANO DO, MIKE K 465.9 UPPER RESPIRATORY INFECTION 10/02/2012 LUEVANO DO, MIKE K 465.9 UPPER RESPIRATORY INFECTION 10/02/2012 REFUGIO TRANSLATION DIRECTOR, LIDIA A 465.9 UPPER RESPIRATORY INFECTION 01/09/2013 459.89 Ecchymosis 01/09/2013 459.89 Ecchymosis 01/09/2013 SHADIA BECKER, GARY 459.89 Ecchymosis 01/09/2013 REFUGIO TRANSLATION DIRECTOR, LIDIA A 459.89 Ecchymosis 01/09/2013 REFUGIO TRANSLATION DIRECTOR, LIDIA A 459.89 Ecchymosis 01/09/2013 REFUGIO TRANSLATION DIRECTOR, LIDIA A 459.89 Ecchymosis 01/09/2013 REFUGIO TRANSLATION DIRECTOR, LIDIA A 459.89 Ecchymosis 01/09/2013 REFUGIO TRANSLATION DIRECTOR, LIDIA A 459.89 Ecchymosis 01/09/2013 REFUGIO TRANSLATION DIRECTOR, LIDIA A 459.89 Ecchymosis 01/09/2013 AZAEL BECKER, RAYMUNDO 459.89 Ecchymosis 01/09/2013 LUEVANO DO, MIKE K 459.89 Ecchymosis 01/09/2013 REFUGIO TRANSLATION DIRECTOR, LIDIA A 459.89 Ecchymosis 01/09/2013 LUEVANO DO, MIKE K 459.89 Ecchymosis 01/09/2013 LUEVANO DO, MIKE K 459.89 Ecchymosis 01/09/2013 REFUGIO TRANSLATION DIRECTOR, LIDIA A 459.89 Ecchymosis 02/20/2013 477.0 ALLERGIC RHINITIS DUE TO POLLEN 02/20/2013 477.0 ALLERGIC RHINITIS DUE TO POLLEN 02/20/2013 SHADIA BECKER, GARY 477.0 ALLERGIC RHINITIS DUE TO POLLEN 02/20/2013 REFUGIO TRANSLATION DIRECTOR, LIDIA A 477.0 ALLERGIC RHINITIS DUE TO POLLEN 02/20/2013 REFUGIO TRANSLATION DIRECTOR, LIDIA A 477.0 ALLERGIC RHINITIS DUE TO POLLEN 02/20/2013 REFUGIO TRANSLATION DIRECTOR, LIDIA A 477.0 ALLERGIC RHINITIS DUE TO POLLEN 02/20/2013 REFUGIO TRANSLATION DIRECTOR, LIDIA A 477.0 ALLERGIC RHINITIS DUE TO POLLEN 02/20/2013 REFUGIO TRANSLATION DIRECTOR, LIDIA A 477.0 ALLERGIC RHINITIS DUE TO POLLEN 02/20/2013 REFUGIO TRANSLATION DIRECTOR, LIDIA A 477.0 ALLERGIC RHINITIS DUE TO POLLEN 02/20/2013 AZAEL BECKER, RAYMUNDO 477.0 ALLERGIC RHINITIS DUE TO POLLEN 02/20/2013 LUEVANO DO, MIKE K 477.0 ALLERGIC RHINITIS DUE TO POLLEN 02/20/2013 REFUGIO TRANSLATION DIRECTOR, LIDIA A 477.0 ALLERGIC RHINITIS DUE TO POLLEN 02/20/2013 LUEVANO DO, MIKE K 477.0 ALLERGIC RHINITIS DUE TO POLLEN 02/20/2013 LUEVANO DO, MIKE K 477.0 ALLERGIC RHINITIS DUE TO POLLEN 02/20/2013 REFUGIO TRANSLATION DIRECTOR, LIDIA A 477.0 ALLERGIC RHINITIS DUE TO POLLEN 03/03/2013 V25.02 CONTRACEPTION - ANY METHOD 03/03/2013 SHADIA BECKER, GARY V25.02 CONTRACEPTION - ANY METHOD 03/03/2013N TRANSLATION DIRECTOR, LIDIA A V25.02 CONTRACEPTION - ANY METHOD 03/03/2013 REFUGIO TRANSLATION DIRECTOR, LIDIA A V25.02 CONTRACEPTION - ANY METHOD 03/03/2013 REFUGIO TRANSLATION DIRECTOR, LIDIA A V25.02 CONTRACEPTION - ANY METHOD 03/03/2013 REFUGIO TRANSLATION DIRECTOR, LIDIA A V25.02 CONTRACEPTION - ANY METHOD 03/03/2013 REFUGIO TRANSLATION DIRECTOR, LIDIA A V25.02 CONTRACEPTION - ANY METHOD 03/03/2013N TRANSLATION DIRECTOR, LIDIA A V25.02 CONTRACEPTION - ANY METHOD 03/03/2013 RAYMUNDO ADDISON MD V25.02 CONTRACEPTION - ANY METHOD 03/03/2013 MIKE LUEVANO DO V25.02 CONTRACEPTION - ANY METHOD 03/03/2013 REFUGIO TON, LIDIA A V25.02 CONTRACEPTION - ANY METHOD 03/03/2013 LUEVANO MIKE GARSIA V25.02 CONTRACEPTION - ANY METHOD 03/03/2013 LUEVANO MIKE GARSIA K V25.02 CONTRACEPTION - ANY METHOD 03/03/2013 REFUGIO TRANSLATION DIRECTOR, LIDIA A V25.02 CONTRACEPTION - ANY METHOD 04/04/2013 OLIVE MCBRIDE MD Ot 558.9 NONINF GASTROENTERIT NEC 04/04/2013 OLIVE MCBRIDE MD Ot 787.01 NAUSEA WITH VOMITING 04/15/2013 SHADIA BECKER, GARY V04.81 FLU SHOT 04/15/2013 REFUGIO TRANSLATION DIRECTOR, LIDIA A V04.81 FLU SHOT 04/15/2013 REFUGIO TRANSLATION DIRECTOR, LIDIA A V04.81 FLU SHOT 04/15/2013 REFUGIO TRANSLATION DIRECTOR, LIDIA A V04.81 FLU SHOT 04/15/2013 REFUGIO TRANSLATION DIRECTOR, LIDIA A V04.81 FLU SHOT 04/15/2013 REFUGIO TRANSLATION DIRECTOR, LIDIA A V04.81 FLU SHOT 04/15/2013 REFUGIO TRANSLATION DIRECTOR, LIDIA A V04.81 FLU SHOT 04/15/2013 AZAEL BECKER, RAYMUNDO V04.81 FLU SHOT 04/15/2013 CHLOÉ GARSIA, MIKE K V04.81 FLU SHOT 04/15/2013 REFUGIO TRANSLATION DIRECTOR, LIDIA A V04.81 FLU SHOT 04/15/2013 LUEVANO MIKE GARSIA K V04.81 FLU SHOT 04/15/2013 CHLOÉ GARSIASHAWNA K V04.81 FLU SHOT 04/15/2013 REFUGIO TRANSLATION DIRECTOR, LIDIA A V04.81 FLU SHOT 05/06/2013 LOBITO MEDINA APRN Ot 708.9 URTICARIA NOS 05/06/2013 LOBITO MEDINA APRN Ot 782.1 NONSPECIF SKIN ERUPT NEC 06/13/2013 LOBITO MEDINA APRN Ot 276.8 HYPOPOTASSEMIA 06/13/2013 LOBITO MEDINA APRN Ot 787.01 NAUSEA WITH VOMITING 06/28/2013 OLEGARIO BENNETT Ot 599.0 URIN TRACT INFECTION NOS 06/28/2013 OLEGARIO BENNETT Ot 623.5 NONINFECT VAG LEUKORRHEA 06/28/2013 OLEGARIO BENNETT Ot 789.00 ABDOMINAL PAIN, UNSPECIFIED SITE 08/06/2013 BONILLA BECKER, RAMANDEEP Ch Ot 789.09 ABDOMINAL PAIN, OTHER SPECIFIED SITE 08/07/2013 ZACHERY BECKER, RADHA Dao Ot 599.70 HEMATURIA, UNSPECIFIED 08/07/2013 RADHA BINGHAM MD Ot 789.00 ABDOMINAL PAIN, UNSPECIFIED SITE 10/08/2013 REFUGIO TRANSLATION DIRECTOR, LIDIA A 788.1 DYSURIA 10/08/2013 REFUGIO TRANSLATION DIRECTOR, LIDIA A V72.41 TEST NEGATIVE RESULT 10/08/2013 REFUGIO TRANSLATION DIRECTOR, LIDIA A 788.1 DYSURIA 10/08/2013 REFUGIO TRANSLATION DIRECTOR, LIDIA A V72.41 TEST NEGATIVE RESULT 10/08/2013 REFUGIO TRANSLATION DIRECTOR, LIDIA A 788.1 DYSURIA 10/08/2013 REFUGIO APRN, LIDIA A V72.41 TEST NEGATIVE RESULT 10/08/2013 AZAEL BECKER, RAYMUNDO 788.1 DYSURIA 10/08/2013 AZAEL BECKER RAYMUNDO V72.41 TEST NEGATIVE RESULT 10/08/2013 LUEVANO DO, MIKE K 788.1 DYSURIA 10/08/2013 LUEVANO DO, MIKE K V72.41 TEST NEGATIVE RESULT 10/08/2013 REFUGIO APRN, LIDIA A 788.1 DYSURIA 10/08/2013 REFUGIO APRN, LIDIA A V72.41 TEST NEGATIVE RESULT 10/08/2013 LUEVANO DO, MIKE K 788.1 DYSURIA 10/08/2013 LUEVANO DO, MIKE K V72.41 TEST NEGATIVE RESULT 10/08/2013 LUEVANO DO, MIKE K 788.1 DYSURIA 10/08/2013 LUEVANO DO, MIKE K V72.41 TEST NEGATIVE RESULT 10/08/2013 REFUGIO APRN, LIDIA A 788.1 DYSURIA 10/08/2013 REFUGIO APRN, LIDIA A V72.41 TEST NEGATIVE RESULT 12/01/2013 AZAEL BECKER, RAYMUNDO 477.0 ALLERGIC RHINITIS - POLLEN 12/01/2013 AZAEL BECKER RAYMUNDO 914.0 ABRASION OR FRICTION BURN OF HAND(S) EXCEPT FINGER(S) ALONE WITHOUT INFECTION 12/01/2013 LUEVANO DO, MIKE K 477.0 ALLERGIC RHINITIS - POLLEN 12/01/2013 LUEVANO DO, MIKE K 914.0 ABRASION OR FRICTION BURN OF HAND(S) EXCEPT FINGER(S) ALONE WITHOUT INFECTION 12/01/2013 JOSEFINA HUFF APRNIDI A 477.0 ALLERGIC RHINITIS - POLLEN 12/01/2013 REFUGIO MEDINA, LIDIA A 914.0 ABRASION OR FRICTION BURN OF [...] HAND(S) EXCEPT FINGER(S) ALONE WITHOUT INFECTION 12/01/2013 LIDIA HUFF APRN A 477.0 ALLERGIC RHINITIS - POLLEN 12/01/2013 REFUGIO MEDINA, LIDIA A 914.0 ABRASION OR FRICTION BURN OF HAND(S) EXCEPT FINGER(S) ALONE WITHOUT INFECTION 01/29/2014 OLEGARIO BENNETT L Ot 626.2 EXCESSIVE MENSTRUATION 01/29/2014 OLEGARIO BENNETT L Ot 789.09 ABDOMINAL PAIN, OTHER SPECIFIED SITE 03/24/2014 SHAWN LUEVANO DOA K 625.8 OTHER SPECIFIED SYMPTOMS ASSOCIATED WITH FEMALE GENITAL ORGANS 03/24/2014 LIDIA HUFF APRN A 625.8 OTHER SPECIFIED SYMPTOMS ASSOCIATED WITH FEMALE GENITAL ORGANS 03/24/2014 SHAWN LUEVANO DOA K 625.8 OTHER SPECIFIED SYMPTOMS ASSOCIATED WITH FEMALE GENITAL ORGANS 03/24/2014 SHAWN LUEVANO DOA K 625.8 OTHER SPECIFIED SYMPTOMS ASSOCIATED WITH FEMALE GENITAL ORGANS 03/24/2014 LIDIA HUFF APRN A 625.8 OTHER SPECIFIED SYMPTOMS ASSOCIATED WITH FEMALE GENITAL ORGANS 05/31/2014 BONILLA BECKER, RAMANDEEP Ch Ot 599.0 URIN TRACT INFECTION NOS 05/31/2014 BONILLA BECKER, RAMANDEEP Ch Ot 787.01 NAUSEA WITH VOMITING 05/31/2014 RAMANDEEP CRYSTAL MD Ot 789.00 ABDOMINAL PAIN, UNSPECIFIED SITE 07/21/2014 Ot 789.06 07/21/2014 OLEGARIO BENNETT Ot 487.1 FLU W RESP MANIFEST NEC 07/21/2014 OLEGARIO BENNETT Ot 786.2 COUGH 07/21/2014 OLEGARIO BENNETT Ot 787.01 NAUSEA WITH VOMITING 07/21/2014 OLEGARIO BENNETT Ot 788.41 URINARY FREQUENCY 07/21/2014 Ot 789.06 08/04/2014 MIKE LUEVANO DO V74.1 TB SCREENING 08/04/2014 LIDIA HUFF APRN V74.1 TB SCREENING 08/18/2014 LIDIA HUFF APRN 614.9 UNSPECIFIED INFLAMMATORY DISEASE OF FEMALE PELVIC [...] CRD OUT D/T PT [facility] SEE 08/30/2016 Pankaj Ureña W 535.50 UNSPECIFIED GASTRITIS AND GASTRODUODENITIS, WITHOUT MENTION OF HEMORRHAGE 08/30/2016 Pankaj Ureña 789.07 ABDOMINAL PAIN, GENERALIZED 08/30/2016 Pankaj Ureña K29.70 GASTRITIS, UNSPECIFIED, WITHOUT BLEEDING 08/30/2016 Pankaj Ureña R10.84 GENERALIZED ABDOMINAL PAIN 08/31/2016 ALONSO JOSE MD Ot R11.0 NAUSEA 08/31/2016 ALONSO JOSE MD Ot Z53.21 PROC/TRTMT NOT CRD OUT D/T PT [facility] SEE 09/13/2016 ALONSO JOSE MD Ot R11.0 NAUSEA 09/13/2016 ALONSO JOSE MD Ot Z53.21 PROC/TRTMT NOT CRD OUT D/T PT [facility] SEE 10/19/2016 Pankaj Ureña 382.9 UNSPECIFIED OTITIS MEDIA 10/19/2016 Pankaj Ureña 465.8 ACUTE UPPER RESPIRATORY INFECTIONS OF OTHER MULTIPLE SITES 10/19/2016 Pankaj Ureña H66.91 OTITIS MEDIA, UNSPECIFIED, RIGHT EAR 10/19/2016 Pankaj Ureña J06.9 ACUTE UPPER RESPIRATORY INFECTION, UNSPECIFIED 11/30/2016 NETTE GARSIA CHAO K Ot F17.210 NICOTINE DEPENDENCE, CIGARETTES, UNCOMPL 11/30/2016 NETTE DO CHAO K Ot M25.561 PAIN IN RIGHT KNEE 12/02/2016 KENDRA PERDUE DOA K Ot F17.210 NICOTINE DEPENDENCE, CIGARETTES, UNCOMPL 12/02/2016 NETTE DO CHAO K Ot M25.561 PAIN IN RIGHT KNEE 08/13/2017 BONILLA BECKER, RAMANDEEP Ch Ot R11.10 VOMITING, UNSPECIFIED 08/15/2017 RAMANDEEP CRYSTAL MD Ot R11.10 VOMITING, UNSPECIFIED 08/17/2017 BONILLA BECKER, RAMANDEEP Ch Ot R11.10 VOMITING, UNSPECIFIED Procedures Code Description [place] [address] HEMOGLOBIN (IN-HOUSE) 06/14/2012 J1055 Depo-Provera Contraceptive 150 mg/mL Suspension 06/14/2012 68654 ROUTINE VENIPUNCTURE 07/02/2012 22313 THERAPUTIC INJ SQ/IM 07/02/2012 J1055 Depo-Provera Contraceptive 150 mg/mL Suspension 07/02/2012 12995 URINE TEST (IN- HOUSE) 07/02/2012 91899 [facility] 07/03/2012 02238 HIV-[facility] 07/03/2012 38006 GC/CHLAM URINE (STATE) 07/03/2012 Maximilian Horn 09/11/2012 53882 THERAPUTIC INJ SQ/IM 10/02/2012 J1050 DEPO PROVERA 10/02/2012 55341 URINE TEST (IN- HOUSE) 10/02/2012 48476 URINE TEST (IN- HOUSE) 03/03/2013 55040 CULTURE UROGENITAL 05/18/2013 53936 GC/CHLAM PROBE (STATE) 05/18/2013 84416 URINE TEST (IN- HOUSE) 05/18/2013 00585 TRICHOMONAS (IN-HOUSE) 05/18/2013 89787 THERAPUTIC INJ SQ/IM 05/27/2013 J1050 DEPO PROVERA 05/27/2013 55195 GC/CHLAM PROBE (STATE) 08/05/2013 10316 TRICHOMONAS (IN-HOUSE) 08/05/2013 93781 CULTURE UROGENITAL 08/07/2013 95552 TEST, URINE (IN- HOUSE) 10/08/2013 89488 [facility] 11/04/2013 11144 HIV (STATE [facility]) 11/04/2013 99242 GC/CHLAM PROBE (STATE) 11/04/2013 66797 TEST, URINE (IN- HOUSE) 11/04/2013 13749 TRICHOMONAS (IN-HOUSE) 11/04/2013 27185 CULTURE UROGENITAL 11/07/2013 25712 TRICHOMONAS (IN-HOUSE) 03/24/2014 38679 CULTURE UROGENITAL 03/25/2014 09931 GC/CHLAM PROBE (STATE) 03/25/2014 33910 ROUTINE VENIPUNCTURE 04/20/2014 18145 [facility] 04/20/2014 95784 HIV (STATE LAB) 04/20/2014 85863 GC/CHLAM PROBE (STATE) 04/20/2014 89824 UA W/ CULTURE IF INDICATED 04/20/2014 79491 TEST, URINE (IN- HOUSE) 04/20/2014 73101 TRICHOMONAS (IN-HOUSE) 04/20/2014 74226 CULTURE UROGENITAL 04/21/2014 93982 TRICHOMONAS (IN-HOUSE) 05/26/2014 10230 TB TEST INTRADERMAL 08/04/2014 Results Test Result Range Urine Culture, Routine - 04/09/16 14:06 Urine Culture, Routine Note Genital Culture, Routine - 04/09/16 14:06 Genital Culture, Routine Note Lipase - 08/30/16 17:45 Lipase 18 U/L 7-59 Urinalysis - 08/30/16 17:57 Icotest N/A Negative Urine Volume Urine Volume Sufficient (10mL) Urine-Appearance Clear Clear Urine-Bacteria Trace Urine-Bilirubin Negative Negative Urine-Blood 1+ Negative Urine-Color Yellow Colorless-Lt. Yellow Urine-Epithelial Cells 10-20/HPF Urine-Glucose Negative Negative Urine-Ketones Negative Negative Urine-Leukocytes Negative Negative Urine-Mucus 1+ Urine-Nitrite Negative Negative Urine-Other Urine Saved if Culture Needed (48hrs from time of collection) Urine-pH 5.5 5-8.5 Urine-Protein Trace Negative Urine-RBC 2-5/HPF Urine-Specific [place] >=1.030 1.000-1.030 Urine-WBC 2-5/HPF Urobilinogen 0.2 E.U./dL 0.2-1.0 Genital Culture, Routine - 08/31/16 17:11 Genital Culture, Routine Note Genital Culture, Routine - 12/17/16 12:48 Genital Culture, Routine Note Genital Culture, Routine - 02/11/17 15:22 Genital Culture, Routine Note CULTURE, GENITAL - 02/11/17 15:22 Genital Culture, Routine Final report NRG Result 1 NRG CBC With Differential/Platelet - 03/13/17 10:25 WBC 6.8 x10E3/uL 3.4-10.8 RBC 4.41 x10E6/uL 3.77-5.28 Hemoglobin 12.5 g/dL 11.1-15.9 Hematocrit 38.1 % 34.0-46.6 MCV 86 fL 79-97 MCH 28.3 pg 26.6-33.0 MCHC 32.8 g/dL 31.5-35.7 RDW 15.4 % 12.3-15.4 Platelets 298 x10E3/uL 150-379 Neutrophils 54 % Lymphs 34 % Monocytes 8 % Eos 4 % Basos 0 % Neutrophils (Absolute) 3.7 x10E3/uL 1.4-7.0 Lymphs (Absolute) 2.3 x10E3/uL 0.7-3.1 Monocytes(Absolute) 0.6 x10E3/uL 0.1-0.9 Eos (Absolute) 0.3 x10E3/uL 0.0-0.4 Baso (Absolute) 0.0 x10E3/uL 0.0-0.2 Immature Granulocytes 0 % Immature Grans (Abs) 0.0 x10E3/uL 0.0-0.1 Comp. Metabolic Panel (14) - 03/13/17 10:25 Glucose, Serum 86 mg/dL 65-99 BUN 12 mg/dL 6-20 Creatinine, Serum 0.71 mg/dL 0.57-1.00 eGFR If NonAfricn Am 123 mL/min/1.73 >59 eGFR If Africn Am 142 mL/min/1.73 >59 BUN/Creatinine Ratio 17 9-23 Sodium, Serum 142 mmol/L 134-144 Potassium, Serum 4.5 mmol/L 3.5-5.2 Chloride, Serum 104 mmol/L 96-106 Carbon Dioxide, Total 23 mmol/L 18-29 Calcium, Serum 9.0 mg/dL 8.7-10.2 Protein, Total, Serum 6.6 g/dL 6.0-8.5 Albumin, Serum 4.5 g/dL 3.5-5.5 Globulin, Total 2.1 g/dL 1.5-4.5 A/G Ratio 2.1 1.2-2.2 Bilirubin, Total <0.2 mg/dL 0.0-1.2 Alkaline Phosphatase, S 50 IU/L 39-117 AST (SGOT) 11 IU/L 0-40 ALT (SGPT) 10 IU/L 0-32 CULTURE, GENITAL - 03/18/17 19:26 Genital Culture, Routine Final report NRG Result 1 NRG Result 2 NRG Genital Culture, Routine - 03/18/17 19:26 Genital Culture, Routine Note CULTURE, URINE - 09/19/17 10:13 CULTURE, URINE, ROUTINE SEE NOTE NRG CBC - 09/20/17 08:14 WHITE BLOOD CELL COUNT 9.1 Thousand/uL 3.8-10.8 RED BLOOD CELL COUNT 4.46 Million/uL 3.80-5.10 HEMOGLOBIN 13.6 g/dL 11.7-15.5 HEMATOCRIT 40.7 % 35.0-45.0 MCV 91.3 fL 80.0-100.0 MCH 30.5 pg 27.0-33.0 MCHC 33.4 g/dL 32.0-36.0 RDW 12.6 % 11.0-15.0 PLATELET COUNT 313 Thousand/uL 140-400 MPV 9.9 fL 7.5-12.5 ABSOLUTE NEUTROPHILS 5460 cells/uL 9795-3322 ABSOLUTE LYMPHOCYTES 2766 cells/uL 850-3900 ABSOLUTE MONOCYTES 601 cells/uL 200-950 ABSOLUTE EOSINOPHILS 218 cells/uL 15-500 ABSOLUTE BASOPHILS 55 cells/uL 0-200 NEUTROPHILS 60 % NRG LYMPHOCYTES 30.4 % NRG MONOCYTES 6.6 % NRG EOSINOPHILS 2.4 % NRG BASOPHILS 0.6 % NRG INSULIN LEVEL - 09/20/17 08:14 INSULIN 5.0 uIU/mL 2.0-19.6 CULTURE, GENITAL - 11/13/17 14:32 CULTURE, GENITAL SEE NOTE NRG Encounters ACCT No. Visit Date/Time Discharge Status Pt. Type Provider Facility Loc./Unit Complaint [id number] 08/18/2014 09:39:00 08/18/2014 23:59:59 [facility] Outpatient LIDIA HUFF APRN [id number] 08/04/2014 17:04:00 08/04/2014 23:59:59 [facility] Outpatient MIKE LUEVANO DO [id number] 05/26/2014 16:25:00 05/26/2014 23:59:59 [facility] Outpatient MIKE LUEVANO DO [id number] 04/20/2014 09:46:00 04/20/2014 23:59:59 [facility] Outpatient LIDIA HUFF APRN [id number] 03/24/2014 17:30:00 03/24/2014 23:59:59 CLS Outpatient MIKE LUEVANO DO [id number] 12/01/2013 16:25:00 12/01/2013 23:59:59 CLS Outpatient AZAEL BECKER, RAYMUNDO [id number] 11/04/2013 08:17:00 11/04/2013 23:59:59 [facility] Outpatient LIDIA HUFF APRN [id number] 11/04/2013 08:17:00 11/04/2013 23:59:59 [facility] Outpatient LIDIA HUFF APRN [id number] 10/08/2013 15:34:00 10/08/2013 23:59:59 [facility] Outpatient LIDIA HUFF APRN [id number] 08/05/2013 17:28:00 08/05/2013 23:59:59 [facility] Outpatient LIDIA HUFF APRN [id number] 05/27/2013 09:36:00 05/27/2013 23:59:59 [facility]LS Outpatient LIDIA HUFF APRN [id number] 05/18/2013 17:23:00 05/18/2013 23:59:59 [facility] Outpatient LIDIA HUFF APRN [id number] 04/15/2013 11:49:00 04/15/2013 23:59:59 CLS Outpatient GARY RENO MD [id number] 09/18/2012 11:24:00 09/18/2012 23:59:59 CLS Outpatient CHLOÉ GARSIA MIKE Vero [id number] 09/08/2012 16:05:00 09/08/2012 23:59:59 CLS Outpatient [id number] 07/03/2012 13:28:00 07/03/2012 23:59:59 CLS Outpatient GARY RENO MD [id number] 07/02/2012 16:15:00 07/02/2012 23:59:59 CLS Outpatient [id number] 06/25/2012 14:36:00 06/25/2012 23:59:59 CLS Outpatient [id number] 06/17/2012 14:46:00 06/17/2012 23:59:59 CLS Outpatient [id number] 06/14/2012 10:15:00 06/14/2012 23:59:59 CLS Outpatient [id number] 03/03/2013 17:57:00 Document Registration [id number] 02/20/2013 10:52:00 Document Registration [id number] 10/02/2012 17:55:00 Document Registration [id number] 07/03/2012 14:52:15 RECURRING [id number] 12/20/2016 16:07:00 Document Registration [email or web address] 04/05/2015 11:48:49 ACT Document Registration [id number] 04/11/2016 18:06:00 Document Registration [id number] 03/14/2017 07:06:00 Document Registration [id number] 04/12/2016 10:05:00 Document Registration [id number] 10/19/2016 15:17:00 10/19/2016 16:30:00 DIS Outpatient Niran[facility] [id number] 08/30/2016 16:20:00 08/30/2016 18:40:00 DIS Outpatient Pankaj Ureña [id number] 08/30/2016 17:45:51 Document Registration [id number] 09/06/2016 07:05:00 Document Registration [id number] 02/15/2017 10:10:00 Document Registration [id number] 08/13/2017 01:17:00 08/13/2017 01:59:00 DIS Outpatient BONILLA BECKER, RAMANDEEP Ch [facility] ER POSS FEVER,VOMITING [id number] 11/29/2016 23:55:00 11/30/2016 00:46:00 DIS Emergency CHAO PERDUE DO [facility] ER RT KNEE PAIN [id number] 08/30/2016 13:51:00 08/30/2016 15:39:00 DIS Emergency ALONSO JOSE MD [facility] ER ABD PAIN/NAUSEA [id number] 05/03/2015 00:04:00 05/03/2015 03:55:00 DIS Emergency RAMANDEEP CRYSTAL MD [facility] ER VAGINA SWELLING [id number] 04/05/2015 03:12:00 04/05/2015 03:39:00 DIS Emergency RADHA BINGHAM MD [facility] ER WANTS A BLOOD DRAW PREG TEST [id number] 11/24/2014 01:54:00 11/24/2014 02:34:00 DIS Emergency BELA DIXON DO [facility] ER HEADACHE;VOMITING [id number] 11/16/2014 16:41:00 11/16/2014 17:44:00 DIS Emergency RADHA BINGHAM MD [facility] ER VAGINAL BLEEDING, CRAMPS [id number] 07/21/2014 10:51:00 07/21/2014 13:57:00 DIS Emergency OLEGARIO BENNETT [facility] ER COUGH/FEVER/SORE THROAT/VOMITING [id number] 05/31/2014 01:17:00 05/31/2014 04:12:00 DIS Emergency RAMANDEEP CRYSTAL MD [facility] ER VOMITING [id number] 01/29/2014 12:07:00 01/29/2014 13:41:00 DIS Emergency OLEGARIO BENNETT [facility] ER VAG BLEEDING ABD PAIN/ VOMITING [id number] 08/06/2013 23:01:00 08/07/2013 01:57:00 DIS Emergency RADHA BINGHAM MD [facility] ER BLOOD IN URINE [id number] 08/06/2013 01:32:00 08/06/2013 04:31:00 DIS Emergency RAMANDEEP CRYSTAL MD [facility] ER ABD PAIN [id number] 06/28/2013 18:11:00 06/28/2013 20:38:00 DIS Emergency OLEGARIO BENNETT [facility] ER ABD PAIN [id number] 06/13/2013 15:55:00 06/13/2013 17:28:00 DIS Emergency LOBITO MEDINA TRANSLATION DIRECTOR [facility] ER VOMITING [id number] 05/06/2013 22:09:00 05/06/2013 22:53:00 DIS Emergency LOBITO MEDINA TRANSLATION DIRECTOR [facility] ER ALLERGIC REACTION [id number] 04/04/2013 01:23:00 04/04/2013 02:59:00 DIS Emergency OLIVE MCBRIDE MD [facility] ER NAUSEA,VOMITING [id number] 09/09/2014 22:17:00 Document Registration [id number] 08/30/2011 22:00:00 Document Registration [id number] 06/21/2010 07:58:00 Document Registration [id number] 11/15/2017 12:20:00 11/15/2017 23:59:59 [facility] Outpatient [facility] [id number] 11/13/2017 13:00:00 Document Registration [id number] 09/20/2017 08:00:00 Document Registration [id number] 09/19/2017 08:40:00 Document Registration [id number] 03/18/2017 16:40:00 Document Registration [id number] 02/11/2017 15:00:00 Document Registration [id number] 03/22/2017 18:09:00 Document Registration
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
[2017-11-27] MEDS ORDERED: TETANUS,DIPTH,PERTUSS P/F (BOOSTRIX) 0.5 ML VIAL IM STA (21:07)
[2017-11-27] MEDS ORDERED: TETANUS,DIPTH,PERTUSS P/F (BOOSTRIX) 0.5 ML VIAL IM ONE (21:09)
[2017-11-27] MEDS ORDERED: AUGMENTIN 875 MG TAB (AMOXICILLIN/CLAVULANATE) ONE (21:09)
[2017-11-27] MEDS ORDERED: AMOX-358 PO (21:21)
[2017-11-27] MEDS ORDERED: ONDA4TAB11 PO (21:25)
[2017-11-27] MEDS ORDERED: AUGMENTIN 875 MG TAB (AMOXICILLIN/CLAVULANATE) PO ONE (21:45)
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
[2017-11-27 22:01] VITALS: BP 99/62
[2017-11-28] MEDS ORDERED: AUGMENTIN 875 MG TAB (AMOXICILLIN/CLAVULANATE) PO SCH (07:00)
== END 2017-11-27 22:00 | disposition home or self-care (01) ==
LOC: EDUNIT# 20:25 → ER 20:27
DX: S61.256A Open bite of right little finger without damage to nail, initial encounter (principal); L03.011 Cellulitis of right finger; J06.9 Acute upper respiratory infection, unspecified; F41.9 Anxiety disorder, unspecified; F31.9 Bipolar disorder, unspecified; Z90.89 Acquired absence of other organs; Z87.448 Personal history of other diseases of urinary system; Z86.19 Personal history of other infectious and parasitic diseases; Z23 Encounter for immunization; Y04.1XXA Assault by human bite, initial encounter
CPT/HCPCS: 73130; 90471; 90715; 99284

== ENCOUNTER 2017-12-29 20:14 | Emergency (ER) | payer SELFPAY ==
[~2017-12-29] VITALS: Ht 175.3 cm; Wt 73.9 kg
[~2017-12-29 20:14] MED LIST changes: +AMOX-358 PO; +ONDA4TAB11 PO
--- NOTE | 2017-12-29 20:43 | ED Abdominal Pain ---
General Chief Complaint: Abdominal/GI Problems Stated Complaint: ABD PAIN, LEG PAIN, L SIDE Nursing Triage Note: abdominal, flank, leg pain Sepsis Screen: No Definite Risk Source of Information: Patient Exam Limitations: No Limitations History of Present Illness Date Seen by Provider: Dec 29, 2017 Time Seen by Provider: 20:40 Initial Comments to ER per private vehicle with reports of suprapubic abdominal pain, low back pain and pain that radiates from the lower abdomen down the left leg x7-10 days. She's had nausea without vomiting. She reports the sensation that she needs to constantly have a bowel movement even after having had a bowel movement. She states that her bowels are normal in consistency. She's had some menstrual irregularities latelyNever had anything like this before but she does have a history of PCO S. She followed with her primary care provider earlier this week who was concerned this may be related to her PCO S. Timing/Duration: 1-2 Days Severity/Quality: Moderate Radiation: No Radiation Associated Symptoms: Nausea/Vomiting Allergies and Home Medications Allergies Coded Allergies: No Known Drug Allergies (Unverified , 08/30/11) Home Medications No Active Prescriptions or Reported Meds Patient Home Medication List Home Medication List Reviewed: Yes Review of Systems Constitutional: see HPI; No chills, No fever EENTM: No Symptoms Reported Respiratory: No Symptoms Reported Cardiovascular: No Symptoms Reported Gastrointestinal: See HPI, Abdominal Pain Genitourinary: No Symptoms Reported Musculoskeletal: no symptoms reported Skin: no symptoms reported Psychiatric/Neurological: No Symptoms Reported Endocrine: No Symptoms Reported Hematologic/Lymphatic: No Symptoms Reported Past Tqrzsqp-Izdzyw-Cdtgsx Hx Patient Social History Alcohol Use: Denies Use Recreational Drug Use: No Smoking Status: Current Everyday Smoker Type Used: Cigarettes 2nd Hand Smoke Exposure: Yes Recent Foreign Travel: No Contact w/Someone Who Travel: No Recent Infectious Disease Expo: No Recent Hopitalizations: No Immunizations Up To Date Tetanus Booster (TDap): Unknown Date of Influenza Vaccine: Mar 30, 2013 Seasonal Allergies Seasonal Allergies: No Past Medical History Surgeries: Yes Abdominal, Adenoidectomy, Tonsillectomy Respiratory: No Cardiac: No Neurological: No : No Reproductive Disorders: No Female Reproductive Disorders: Menstrual Problems, Ovarian Cyst Sexually Transmitted Disease: Yes (Trichomonas and Chlamydia) HIV/AIDS: No Gastrointestinal: No Musculoskeletal: No Endocrine: No Cancer: No Psychosocial: Yes Anxiety, Bipolar, Depression Integumentary: No Blood Disorders: No Adverse Reaction/Blood Tranf: No Family Medical History No Pertinent Family Hx Physical Exam Vital Signs Vital Signs - First Documented 12/29/17 20:20 Temp 97.0 Pulse 81 Resp 18 B/P (MAP) 122/81 (95) Pulse Ox 99 O2 Delivery Room Air Capillary Refill : Less Than 3 Seconds General Appearance: WD/WN, no apparent distress HEENT: PERRL/EOMI, normal ENT inspection Neck: non-tender, full range of motion Respiratory: no respiratory distress, no accessory muscle use Cardiovascular: regular rate, rhythm, no murmur Gastrointestinal: normal bowel sounds, soft, tenderness (tender to palpation suprapubic and bilateral lower quadrant) Extremities: normal range of motion, non-tender Neurologic/Psychiatric: alert, normal mood/affect, oriented x 3 Skin: normal color, warm/dry Progress/Results/Core Measures Results/Orders Lab Results Laboratory Tests Test 12/29/17 20:40 12/29/17 20:45 Range/Units Urine Color YELLOW Urine Clarity CLEAR Urine pH 5 5-9 Urine Specific Cougar 1.025 H 1.016-1.022 Urine Protein NEGATIVE NEGATIVE Urine Glucose (UA) NEGATIVE NEGATIVE Urine Ketones NEGATIVE NEGATIVE Urine Nitrite NEGATIVE NEGATIVE Urine Bilirubin NEGATIVE NEGATIVE Urine Urobilinogen NORMAL NORMAL MG/DL Urine Leukocyte Esterase 2+ H NEGATIVE Urine RBC (Auto) NEGATIVE NEGATIVE Urine RBC RARE /HPF Urine WBC 10-25 H /HPF Urine Squamous Epithelial Cells 2-5 /HPF Urine Renal Epithelial Cells NONE /HPF Urine Crystals NONE /LPF Urine Bacteria TRACE /HPF Urine Casts NONE /LPF Urine Mucus SMALL H /LPF Urine Culture Indicated YES White Blood Count 9.9 4.3-11.0 10^3/uL Red Blood Count 4.42 4.35-5.85 10^6/uL Hemoglobin 13.6 11.5-16.0 G/DL Hematocrit 40 35-52 % Mean Corpuscular Volume 90 80-99 FL Mean Corpuscular Hemoglobin 31 25-34 PG Mean Corpuscular Hemoglobin Concent 34 32-36 G/DL Red Cell Distribution Width 12.7 10.0-14.5 % Platelet Count 291 130-400 10^3/uL Mean Platelet Volume 10.4 7.4-10.4 FL Neutrophils (%) (Auto) 62 42-75 % Lymphocytes (%) (Auto) 27 12-44 % Monocytes (%) (Auto) 6 0-12 % Eosinophils (%) (Auto) 5 0-10 % Basophils (%) (Auto) 0 0-10 % Neutrophils # (Auto) 6.2 1.8-7.8 X 10^3 Lymphocytes # (Auto) 2.7 1.0-4.0 X 10^3 Monocytes # (Auto) 0.6 0.0-1.0 X 10^3 Eosinophils # (Auto) 0.5 H 0.0-0.3 10^3/uL Basophils # (Auto) 0.0 0.0-0.1 10^3/uL Sodium Level 142 135-145 MMOL/L Potassium Level 3.6 3.6-5.0 MMOL/L Chloride Level 111 H 98-107 MMOL/L Carbon Dioxide Level 19 L 21-32 MMOL/L Anion Gap 12 5-14 MMOL/L Blood Urea Nitrogen 12 7-18 MG/DL Creatinine 0.74 0.60-1.30 MG/DL Estimat Glomerular Filtration Rate > 60 BUN/Creatinine Ratio 16 Glucose Level 94 70-105 MG/DL Calcium Level 9.0 8.5-10.1 MG/DL Total Bilirubin 0.2 0.1-1.0 MG/DL Aspartate Amino Transf (AST/SGOT) 10 5-34 U/L Alanine Aminotransferase (ALT/SGPT) 9 0-55 U/L Alkaline Phosphatase 49 40-136 U/L Total Protein 6.6 6.4-8.2 GM/DL Albumin 4.3 3.2-4.5 GM/DL My Orders Orders - LOBITO MEDINA APRN Cbc With Automated Diff (12/29/17 20:32) Comprehensive Metabolic Panel (12/29/17 20:32) Ct Abd/Pelv W (Appendicitis) (12/29/17 20:32) Ondansetron Injection (Zofran Injectio (12/29/17 20:45) Fentanyl Injection (Sublimaze Injection (12/29/17 20:45) Ketorolac Injection (Toradol Injection) (12/29/17 20:45) Iv Heplock-Insert (Order) (12/29/17 20:32) Ua Culture If Indicated (12/29/17 20:39) Urine Bedside (12/29/17 20:39) Iohexol Injection (Omnipaque 350 Mg/Ml 1 (12/29/17 20:45) Ns (Ivpb) (Sodium Chloride 0.9% Ivpb Bag (12/29/17 20:45) Urine Culture (12/29/17 20:40) Sulfamethoxazole/Trimet Ds Tab (Bactrim (12/29/17 22:00) Medications Given in ED Current Medications Medications Dose Ordered Sig/Rachele Route Start Time Stop Time Status Last Admin Dose Admin Fentanyl Citrate 50 mcg ONCE ONCE IVP 12/29/17 20:45 12/29/17 20:46 DC 12/29/17 20:50 50 MCG Ketorolac Tromethamine 15 mg ONCE ONCE IVP 12/29/17 20:45 12/29/17 20:46 DC 12/29/17 20:50 15 MG Ondansetron HCl 8 mg ONCE ONCE IVP 12/29/17 20:45 12/29/17 20:46 DC 12/29/17 20:50 8 MG Vital Signs/I&O 12/29/17 12/29/17 12/29/17 20:20 20:50 20:50 Temp 97.0 97.0 97.0 Pulse 81 Resp 18 B/P (MAP) 122/81 (95) Pulse Ox 99 O2 Delivery Room Air Blood Pressure Mean: 95 Departure Impression Primary Impression: Urinary tract infectious disease Additional Impressions: Suprapubic abdominal pain Ruptured ovarian cyst Disposition: 01 HOME, SELF-CARE Condition: Stable Departure-Patient Inst. Decision time for Depature: 21:54 Referrals: [facility] (PCP/Family) Primary Care Physician Patient Instructions: Ovarian Cyst (DC), Urinary Tract Infection, Adult (DC) Add. Discharge Instructions: 1. Use Tylenol and ibuprofen consistently for pain control. Nausea medication as directed. Antibiotics as directed. Return to ER for any concerns.All discharge instructions reviewed with patient and/or family. Voiced understanding. Scripts Sulfamethoxazole/Trimethoprim (Bactrim Ds Tablet) 1 Each Tablet 1 EACH PO BID, #10 TAB Prov: LOBITO MEDINA APRN 12/29/17 LOBITO MEDINA APRN Dec 29, 2017 20:43
[2017-12-29] MEDS ORDERED: fentaNYL INJECTION 100 MCG/2 ML AMP IVP ONE (20:45)
[2017-12-29] MEDS ORDERED: NS 100 ML (IVPB) BAG IV ONE (20:45)
[2017-12-29] MEDS ORDERED: KETOROLAC 30 MG/ML VIAL IVP ONE (20:45)
[2017-12-29] MEDS ORDERED: IOHEXOL 350 MG/ML 100 ML (OMNIPAQUE 350) VIAL IV ONE (20:45)
[2017-12-29] MEDS ORDERED: ONDANSETRON 4 MG/2 ML (SDV) Z0FRAN IVP ONE (20:45)
[2017-12-29 20:59] LABS: BASOPHILS % (AUTO) 0 % (0-10); EOSINOPHILS # (AUTO) 0.5 10^3/uL (0.0-0.3); EOSINOPHILS % (AUTO) 5 % (0-10); HEMATOCRIT 40 % (35-52); HEMOGLOBIN 13.6 G/DL (11.5-16.0); LYMPHOCYTES # (AUTO) 2.7 X 10^3 (1.0-4.0); LYMPHOCYTES % (AUTO) 27 % (12-44); MEAN CORPUSCULAR HEMOGLOBIN 31 PG (25-34); MEAN CORPUSCULAR HGB CONC 34 G/DL (32-36); MEAN CORPUSCULAR VOLUME 90 FL (80-99); MEAN PLATELET VOLUME 10.4 FL (7.4-10.4); MONOCYTES # (AUTO) 0.6 X 10^3 (0.0-1.0); MONOCYTES % (AUTO) 6 % (0-12); NEUTROPHILS # (AUTO) 6.2 X 10^3 (1.8-7.8); NEUTROPHILS % (AUTO) 62 % (42-75); PLATELET COUNT 291 10^3/uL (130-400); RED BLOOD COUNT 4.42 10^6/uL (4.35-5.85); RED CELL DISTRIBUTION WIDTH 12.7 % (10.0-14.5); WHITE BLOOD COUNT 9.9 10^3/uL (4.3-11.0)
[2017-12-29 20:59] LABS: BILIRUBIN,URINE NEGATIVE (NEGATIVE); CLARITY,URINE CLEAR; COLOR,URINE YELLOW; GLUCOSE, URINE (UA) NEGATIVE (NEGATIVE); KETONES,URINE NEGATIVE (NEGATIVE); LEUKOCYTE ESTERASE ,URINE 2+ (NEGATIVE); NITRITE,URINE NEGATIVE (NEGATIVE); PH,URINE 5 (5-9); PROTEIN,URINE NEGATIVE (NEGATIVE); UROBILINOGEN,URINE NORMAL (NORMAL)
[2017-12-29 21:09] LABS: BACTERIA,URINE TRACE /HPF; RBC,URINE RARE /HPF
[2017-12-29 21:39] LABS: ALANINE AMINOTRANSFERASE 9 U/L (0-55); ALBUMIN 4.3 GM/DL (3.2-4.5); ALKALINE PHOSPHATASE 49 U/L (40-136); BILIRUBIN,TOTAL 0.2 MG/DL (0.1-1.0); BUN/CREATININE RATIO 16; CARBON DIOXIDE 19 MMOL/L (21-32); CHLORIDE 111 MMOL/L (98-107); CREATININE SERUM 0.74 MG/DL (0.60-1.30); GFR ESTIMATED > 60; GLUCOSE 94 MG/DL (70-105); POTASSIUM 3.6 MMOL/L (3.6-5.0); SODIUM 142 MMOL/L (135-145); TOTAL PROTEIN 6.6 GM/DL (6.4-8.2)
--- NOTE | 2017-12-29 21:51 | Diagnostic Imaging Report ---
PROCEDURE: CT abdomen and pelvis with contrast, rule out appendicitis. TECHNIQUE: Multiple contiguous axial images were obtained through the abdomen and pelvis after the administration of intravenous contrast. INDICATION: Abdominal pain EXAMINATION: CT abdomen and pelvis with contrast 12/29/2017 COMPARISON: 05/31/2014 FINDINGS: Bilateral scattered airspace opacities noted within the lungs and nonspecific. These have a groundglass type appearance, could be areas of atelectatic change with early infiltrate less likely but clinical correlation with symptoms recommended. Within the abdomen and pelvis the gallbladder is contracted. The liver and spleen unremarkable. Rounded densities next to the spleen likely splenules. Adrenal glands and pancreas unremarkable. Kidneys within normal limits. The appendix is seen. No surrounding inflammatory change is noted. There is free fluid within the pelvis. This is nonspecific but could be physiologic. Adjacent multiple hypodensities noted in the right aspect of the adnexa possibly multiple cysts associated with the right ovary. Similar findings on the left anteriorly involving the left ovary. Findings could be due to recent rupture of a cyst. Pelvic sonography could better characterize as clinically warranted. No free air is appreciated. No acute osseous abnormality appreciated. IMPRESSION: 1. Free fluid in pelvis with multiple cystic changes within both ovaries which are prominent in appearance. Findings could be due to recent rupture of a cyst and if clinically warranted sonography could better characterize the intrapelvic structures. 2. Appendix is seen and is unremarkable in appearance with no surrounding inflammation. Other findings as above. Dictated by: Dictated on workstation # [id number]
[2017-12-29] MEDS ORDERED: SULF1TAB35 PO (21:56)
[2017-12-29] MEDS ORDERED: TRIM/SULFAMETH 160/800 (SEPTRA DS) TAB PO ONE (22:00)
[2017-12-29 22:01] VITALS: BP 122/81
== END 2017-12-29 22:00 | disposition home or self-care (01) ==
LOC: EDUNIT# 20:14 → ER 20:15
DX: N39.0 Urinary tract infection, site not specified (principal); R10.33 Periumbilical pain; N83.202 Unspecified ovarian cyst, left side; F41.9 Anxiety disorder, unspecified; F31.9 Bipolar disorder, unspecified; F17.210 Nicotine dependence, cigarettes, uncomplicated; Z90.89 Acquired absence of other organs
CPT/HCPCS: 36415; 74177; 80053; 81000; 84703; 85025; 87088; 96374; 96375

== ENCOUNTER 2018-04-24 11:11 | Emergency (ER) | payer SELFPAY ==
[~2018-04-24] VITALS: Ht 165.1 cm; Wt 63.5 kg
[~2018-04-24 11:11] MED LIST changes: +SULF1TAB35 PO
[2018-04-24] MEDS ORDERED: AZIT250T12 PO (11:47)
--- NOTE | 2018-04-24 11:47 | ED Cough/URI ---
General Stated Complaint: VOMITING;EAR PAIN;COUGH;FEVER Source: patient Exam Limitations: no limitations History of Present Illness Date Seen by Provider: Apr 24, 2018 Time Seen by Provider: 11:44 Initial Comments To ER with a one-week history of bilateral ear pain, cough productive of brownish sputum, fever up to 99 stating that this is very high for her because normally she is about 96. Timing/Duration: just prior to arrival Severity/Quality: productive cough Associated Symptoms: cough, fever/chills, nasal congestion, shortness of breath Allergies and Home Medications Allergies Coded Allergies: No Known Drug Allergies (Unverified , 08/30/11) Home Medications Azithromycin 250 Mg Tablet, 250 MG PO UD TAKE 2 TABLETS ON DAY ONE THEN TAKE 1 TABLET DAILY FOR FOUR MORE DAYS Prescribed by: LOBITO MEDINA on 04/24/18 1147 Sulfamethoxazole/Trimethoprim 1 Each Tablet, 1 EACH PO BID Prescribed by: LOBITO MEDINA on 12/29/17 5576 Patient Home Medication List Home Medication List Reviewed: Yes Review of Systems Review of Systems Constitutional: see HPI EENTM: see HPI Respiratory: see HPI, cough Cardiovascular: no symptoms reported Genitourinary: no symptoms reported Musculoskeletal: no symptoms reported Skin: no symptoms reported Psychiatric/Neurological: No Symptoms Reported Hematologic/Lymphatic: No Symptoms Reported Immunological/Allergic: no symptoms reported Past Ogtzsrr-Fkyjue-Ddezjs Hx Patient Social History Type Used: Cigarettes 2nd Hand Smoke Exposure: Yes Recent Hopitalizations: No Immunizations Up To Date Tetanus Booster (TDap): Unknown Date of Influenza Vaccine: Mar 30, 2013 Seasonal Allergies Seasonal Allergies: No Past Medical History Surgeries: Yes Abdominal, Adenoidectomy, Tonsillectomy Respiratory: No Cardiac: No Neurological: No Reproductive Disorders: No Female Reproductive Disorders: Menstrual Problems, Ovarian Cyst Sexually Transmitted Disease: Yes (Trichomonas and Chlamydia) HIV/AIDS: No Gastrointestinal: No Musculoskeletal: No Endocrine: No Cancer: No Psychosocial: Yes Anxiety, Bipolar, Depression Integumentary: No Blood Disorders: No Adverse Reaction/Blood Tranf: No Family Medical History No Pertinent Family Hx Physical Exam Vital Signs - First Documented 04/24/18 11:44 Temp 96.6 Pulse 82 Resp 20 B/P (MAP) 121/67 (85) Pulse Ox 99 O2 Delivery Room Air Capillary Refill : Height: 5'9.00" Weight: 163lbs. oz. 73.397292si; 25.06 BMI Method:Stated General Appearance: WD/WN, no apparent distress Eyes: Bilateral Eye Normal Inspection, Bilateral Eye PERRL, Bilateral Eye EOMI HEENT: PERRL/EOMI, normal ENT inspection, TMs normal, pharynx normal Neck: No lymphadenopathy (R), No lymphadenopathy (L) Respiratory: normal breath sounds, no respiratory distress, no accessory muscle use Cardiovascular: regular rate, rhythm, no murmur Gastrointestinal: normal bowel sounds, non tender Neurologic/Psychiatric: alert, normal mood/affect, oriented x 3 Skin: normal color, warm/dry Progress/Results/Core Measures Suspected Sepsis SIRS Temperature: Pulse: Respiratory Rate: Blood Pressure / Mean: Results/Orders My Orders Orders - LOBITO MEDINA APRN Chest Pa/Lat (2 View) (04/24/18 11:49) Vital Signs/I&O 04/24/18 04/24/18 11:44 11:44 Temp 96.6 Pulse 82 Resp 20 B/P (MAP) 121/67 (85) Pulse Ox 99 O2 Delivery Room Air Capillary Refill : Departure Communication (Admissions) Her symptoms have been present for one week so flu swab is not going to 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 Impression Primary Impression: Acute bronchitis Qualified Codes: J20.9 - Acute bronchitis, unspecified Disposition: HOME, SELF-CARE Condition: Stable Departure-Patient Inst. Decision time for Depature: 11:46 Referrals: [facility] (PCP/Family) Primary Care Physician Patient Instructions: Acute Bronchitis in Adults Add. Discharge Instructions: 1. Medication as directed. Do not mix the prescribed cough medication with any yuzw-ydr-ggwehvb cough medications. 2. Follow-up with your doctor within 1 week for recheck. Scripts D-Methorphan Hb/P-Epd HCl/Bpm (Bromfed Dm Cough Syrup) 118 Ml Syrup 5 ML PO Q6H PRN for CONGESTION, #120 ML Prov: LOBITO MDEINA APRN 04/24/18 Azithromycin (Azithromycin) 250 Mg Tablet 250 MG PO UD, #6 TAB TAKE 2 TABLETS ON DAY ONE THEN TAKE 1 TABLET DAILY FOR FOUR MORE DAYS Prov: LOBITO MEDINA APRN 04/24/18 Work/School Note: Work Release Form Date Seen in the Emergency Department: Apr 24, 2018 Return to Work: Apr 26, 2018 LOBITO MEDINA APRN Apr 24, 2018 11:47
[2018-04-24] MEDS ORDERED: D-ME118S33 PO (11:52)
--- NOTE | 2018-04-24 12:37 | Diagnostic Imaging Report ---
INDICATION: Cough and low-grade fever. TIME OF EXAM: 12:26 PM No prior studies are available for comparison. FINDINGS: The heart size is normal. The pulmonary vascularity is unremarkable. The lungs are clear. No infiltrate, effusion or pneumothorax is detected. IMPRESSION: No acute cardiopulmonary process is detected. Dictated by: Dictated on workstation # [id number]
[2018-04-24 12:49] VITALS: BP 114/68
== END 2018-04-24 12:49 | disposition home or self-care (01) ==
LOC: EDUNIT# 11:11 → ER 11:12
DX: J20.9 Acute bronchitis, unspecified (principal); F41.9 Anxiety disorder, unspecified; F31.9 Bipolar disorder, unspecified; Z77.22 Contact with and (suspected) exposure to environmental tobacco smoke (acute) (chronic); Z90.89 Acquired absence of other organs; Z87.448 Personal history of other diseases of urinary system; Z86.19 Personal history of other infectious and parasitic diseases
CPT/HCPCS: 71046

== ENCOUNTER 2018-05-01 20:19 | Emergency (ER) | payer SELFPAY ==
[~2018-05-01] VITALS: Ht 180.3 cm; Wt 70.3 kg
[~2018-05-01 20:19] MED LIST changes: +AZIT250T12 PO; +D-ME118S33 PO
--- OUTSIDE RECORDS SUMMARY | 2018-05-01 20:26 | XMS REPORT ---
Author Author KRISTENCRISTOPHER JOSHUA [facility] Address Unknown Care Team Providers Care Cdl Instructor Name Role Phone JOSHUA STACK Unavailable PROBLEMS Type Condition ICD9-CM Code VBM70-YG Code Onset Dates Condition Status SNOMED Code Problem Irregular menses N92.6 Active 34256375 Problem Generalized anxiety disorder F41.1 Active 82117502 Problem Unspecified mood [affective] disorder F39 Active 209874362 Problem PCOS (polycystic ovarian syndrome) E28.2 Active 17806996 Problem IBS (irritable bowel syndrome) K58.9 Active 84529496 Problem Tobacco abuse Z72.0 Active 79912786 Problem Tobacco abuse counseling Z71.6 Active 071758300 Problem Abnormal uterine bleeding N93.9 Active [id number] Problem Other chronic pain G89.29 Active 54816033 Problem History of drug dependence/abuse F19.21 Active Problem Chronic posttraumatic stress disorder F43.12 Active 011714458 Problem Bipolar II disorder F31.81 Active 37404729 Problem PTSD (post-traumatic stress disorder) F43.10 Active 09708860 ALLERGIES No Known Allergies ENCOUNTERS Encounter Location Date Diagnosis [facility] [id number] [place] [address] 70792- 0321 May, [facility] [id number] [place] [address] 19487- 9407 Mar, Upper respiratory infection, viral J06.9 and Dysuria R30.[address] [facility] [id number] [place] [address] [id number] Mar, Dental examination Z01.[address] [facility] [id number] [place] [address] [id number] Mar, Dental examination Z01.[address] [facility] [id number] [place] [address] [id number] Mar, Caries K02.[address] [facility] [address] [id number] [id number] 13 Mar, 2018 Dental examination Z01.20 [facility] [id number] [place] [address] 88809- 2104 17 Dec, 2017 [facility] [facility] [id number] [place] [address] 70990- 2004 17 Dec, 2017 [place] [facility] [id number] [place] [address] 51933- 9045 28 Nov, 2017 Irregular menses N92.6 ; Abnormal uterine bleeding N93.9 ; History of PCOS Z87.42 and History of unprotected sex Z72.51 [facility] [facility] [id number] [place] [address] 44707- 0531 October, [facility] [facility] [id number] [place] [address] 64213- 8624 18 Oct, 2017 Low back pain M54.5 ; Dysuria R30.0 ; Other chronic pain G89.29 and Routine gynecological examination Z01.419 [facility] [facility] [id number] [place] [address] 10622- 8348 16 Oct, 2017 Dysuria R30.0 and Vaginal discharge N89.8 [place] [address] [place] [address] 75609- 4965 24 Sep, 2017 Bipolar II disorder F31.81 ; PTSD (post-traumatic stress disorder) F43.10 ; Generalized anxiety disorder F41.1 and History of drug dependence/abuse F19.21 [place] [facility] [address] [place] [address] 17049- 7214 Sep, Unspecified mood [affective] disorder F39 and Post- traumatic stress disorder, unspecified F43.10 [place] [address] [place] [address] 06204- 0089 Aug, PCOS (polycystic ovarian syndrome) E28.2 ; Recurrent major depressive disorder, in full remission F33.42 ; IBS (irritable bowel syndrome) K58.9 and Tobacco abuse Z72.0 [facility] [facility] [id number] [place] [address] 58506- 1471 Aug, Generalized anxiety disorder F41.1 and Depressive disorder, not elsewhere classified F32.9 [facility] [id number] [place] [address] 37770- 1288 Aug, PCOS (polycystic ovarian syndrome) E28.2 ; Recurrent major depressive disorder, in full remission F33.42 ; IBS (irritable bowel syndrome) K58.9 ; Tobacco abuse Z72.0 ; Tobacco abuse counseling Z71.6 ; Dysuria R30.0 ; Irregular menses N92.6 ; Vaginal candidiasis B37.3 and Acute cystitis without hematuria N30.00 [facility] [facility] [id number] [place] [address] 46292- 0136 May, [place] [address] 45851- 0126 18 Mar, 2017 Vaginal discharge N89.8 and Recurrent candidiasis of vagina B37.3 [facility] [facility] [id number] [place] [address] 43524- 6054 13 Mar, 2017 Nausea and vomiting in adult R11.2 ; Sore throat J02.9 and Diarrhea, unspecified type R19.7 [facility] [facility] [id number] [place] [address] 62949- 4425 11 Mar, 2017 [place] [facility] [id number] [place] [address] 62899- 9915 14 Jan, 2017 Vaginal discharge N89.8 ; Dysuria R30.0 ; High risk sexual behavior Z72.51 ; Major depressive disorder, single episode F32.9 and Vaginal candidiasis B37.3 [facility] [facility] [id number] [place] [address] 80739- 1254 03 Jan, 2017 Anxiety F41.9 [place] [facility] [id number] [place] [address] 88939- 0657 Dec, [place] [address] 19225- 1517 Nov, Generalized anxiety disorder F41.1 ; Depressive disorder, not elsewhere classified F32.9 ; History of drug dependence/abuse F19.21 and 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 [facility] [id number] [place] [address] 12792- 6937 Nov, Vaginal discharge N89.8 ; High risk sexual behavior Z72.51 ; Potential exposure to STD Z20.2 and Vaginal candidiasis B37.3 [facility] [address] 25076- 2285 Nov, History of drug dependence/abuse F19.21 and Major depressive disorder, single episode F32.9 [place] [address] 25176- 1469 Nov, Right medial knee pain M25.561 [address] [address] 58590- 5139 October, Nausea and vomiting, intractability of vomiting not specified, unspecified vomiting type R11.2 and Acute pyelonephritis N10 [place] [address] 76716- 4149 Sep, Major depressive disorder, single episode F32.9 ; Alcohol abuse F10.10 and Tobacco abuse Z72.0 [facility] [facility] [id number] [place] [address] 25398- 2925 Sep, Major depressive disorder, single episode F32.9 ; Alcohol abuse F10.10 and History of drug dependence/abuse F19.21 [facility] [id number] [place] [address] 06857- 5167 Sep, Major depressive disorder, single episode F32.9 [facility] [address] 78825 -4307 Aug, Acute cystitis with hematuria N30.01 and Dysuria R30.0 [facility] [address] 41211- 8103 Aug, Dysuria R30.0 ; Vaginal candidiasis B37.3 ; Vaginal discharge N89.8 and High risk sexual behavior Z72.51 [facility] [facility] [id number] [place] [address] 11455- 1824 Jul, [facility] [address] 95899- 5014 Jul, Major depressive disorder, single episode F32.9 ; History of drug dependence/abuse F19.21 ; Alcohol abuse F10.10 and Tobacco abuse Z72.[address] [facility] [address] [id number] May, Dental examination Z01.20 and Dental caries K02.9 [place] [address] 11045- 5240 May, Fatigue, unspecified type R53.83 and Cough R05 [place] [address] 86889- 6903 May, [place] [facility] [address] 28510- 5359 Mar, [place] [facility] [address] 67970- 9318 Mar, [place] [facility] [id number] [place] [address] 50629- 1120 Mar, [place] [address] 47297- 1833 Mar, [place] [address] 97947- 2669 Mar, Absence of menstruation N91.2 ; Vagina itching L29.8 ; History of drug dependence/abuse F19.21 ; History of PID Z87.42 and Acute cystitis without hematuria N30.00 [place] [facility] [id number] [place] [address] 25575- 0921 Sep, Routine health maintenance Z00.00 ; Late menses N91.0 ; History of drug dependence/abuse F19.21 ; Alcohol abuse F10.10 ; Tobacco abuse Z72.0 ; Tobacco abuse counseling Z71.6 and Back pain M54.[address] [facility] [id number] [place] [address] [id number] 18 Aug, 2015 Dental examination Z01.20 and Dental caries K02.[address] 34673- 3829 Jul, [address] 62281- 2690 Jul, Surveillance of contraceptive injection Z30.[address] 63373- 3900 Jul, Routine screening for STI (sexually transmitted infection) Z11.3 ; Drug use F19.90 ; Counseling on substance use and abuse Z71.89 ; Unprotected sexual intercourse Z72.51 ; Encounter for counseling regarding contraception Z30.9 ; Vaginal discharge N89.8 and Skin lesions L98.[address] 08730- 0066 30 May, [address] 82479- 9860 May, Yeast infection B37.[address] 46015- 2614 May, Excessive and frequent menstruation with irregular cycle N92.1 ; Other fatigue R53.83 ; General counseling and advice for contraceptive management Z30.09 ; Evaluation for contraceptive injection Z30.013 ; Cough R05 ; Vaginal irritation N89.8 and Dizziness R42 [address] 45549- 9534 Sep, [address] 14103- 9867 Sep, [address] 21119- 5800 Aug, [facility] [place] [facility] [address] [id number] [place] [address]- 7128 Aug, [facility] [place] [facility] [address] [id number] [place] [address]- 5019 Aug, [facility] [place] [facility] [address] [id number] [place] [address]- 4529 Aug, [facility] [place] [facility] [address] [id number] [place] [address]- 3033 Aug, [facility] [place] [facility] [address] [id number] [place] [address]- 3714 Aug, [facility] [place] [facility] [address] [id number] [place] [address]- 3704 Aug, [facility] [place] [facility] [address] [facility] [id number] [place] [address]- 9412 Aug, [facility] [place] [facility] [address] [id number] [place] [address]- 2354 Aug, [facility] [place] [facility] [address] [id number] [place] [address]- 9940 Aug, [facility] [place] [facility] [address] [facility] [id number] [place] [address]- 8251 Aug, [facility] [place] [facility] [address] [facility] [id number] [place] [address]- 7654 Aug, [facility] [place] [facility] [address] [facility] [id number] [place] [address]- 9407 Jul, [facility] [place] [facility] [address] [id number] [place] [address]- 2345 Jul, [facility] [place] [facility] [address] [facility] [id number] [place] [address]- 5802 May, [facility] [place] [facility] [address] [id number] [place] [address]- 0368 May, [facility] [place] [facility] [address] [id number] [place] [address]- 4396 May, [facility] [place] [facility] [address] [id number] [place] [address]- 6714 May, [facility] [place] [facility] [address] [id number] [place] [address]- 8710 Mar, [facility] [place] [facility] [address] [id number] [place] [address]- 2885 Mar, [facility] [place] [facility] [address] [id number] [place] [address]- 0756 Mar, [facility] [place] [facility] [address] [id number] [place] [address]- 0790 Mar, [facility] [place] [facility] [address] [id number] [place] [address]- 2983 Mar, [facility] [place] [facility] [address] [id number] [place] [address]- 7964 Mar, [facility] [place] [facility] [address] [id number] [place] [address]- 3112 Mar, [facility] [place] [facility] [address] [id number] [place] [address]- 4616 Mar, [facility] [place] [facility] [address] [id number] [place] [address]- 0204 Mar, [facility] [place] [facility] [address] [id number] [place] [address]- 9512 Mar, [facility] [place] [facility] [address] [id number] [place] 2062 Jan, [facility] [place] [facility] [address] [id number] [place] 1991 Jan, [facility] [place] [facility] [address] [id number] [place] [address]- 7851 Nov, [facility] [place] [facility] [address] [id number] [address]- 6953 Nov, [facility] [address] [id number] [place] [address]- 9570 October, [facility] [place] [facility] [address] [id number] [place] [address]- 1861 October, [facility] [place] [facility] [address] [id number] [place] [address]- 0021 October, [facility] [place] [facility] [address] [id number] [place] [address]- 9402 October, [facility] [place] [facility] [address] [id number] [place] [address]- 3938 October, [facility] [place] [facility] [address] [id number] [place] [address]- 3586 October, [facility] [place] [facility] [address] [id number] [place] [address]- 7187 October, [facility] [place] [facility] [address] [id number] [place] [address]- 3802 October, [facility] [place] [facility] [address] [id number] [place] [address]- 4952 Sep, [facility] [place] [facility] [address] [id number] [place] [address]- 9591 Sep, [facility] [place] [facility] [address] [id number] [place] [address]- 0752 Aug, [facility] [place] [facility] [address] [id number] [place] [address]- 9871 Aug, [facility] [place] [facility] [address] [id number] [place] [address]- 6343 Aug, [facility] [place] [facility] [address] [id number] [place] [address]- 7307 Aug, [facility] [place] [facility] [address] [facility] [id number] [place] [address]- 4411 May, [facility] [place] [facility] [address] [id number] [place] [address]- 7708 May, [facility] [place] [facility] [address] [id number] [place] [address]- 5447 May, [facility] [place] [facility] [address] [id number] [place] 3536 May, [facility] [place] [facility] [address] [id number] [place] [address]- 5745 May, [facility] [place] [facility] [address] [id number] [place] [address]- 6932 May, [facility] [place] [facility] [address] [id number] [place] [address]- 2810 May, [facility] [place] [facility] [address] [id number] [place] [address]- 4762 May, [facility] [place] [facility] [address] [id number] [place] [address]- 7854 Mar, [facility] [place] [facility] [address] [id number] [place] [address]- 6939 Mar, [facility] [place] [facility] [address] [id number] [place] 6414 Mar, [facility] [place] [facility] [address] [id number] [place] 8028 Jan, [facility] [place] [facility] [address] [id number] [place] [address]- 3175 Jan, [facility] [place] [facility] [address] [id number] [place] [address]- 1139 Dec, [facility] [place] [facility] [address] [id number] [place] [address]- 3264 Dec, [facility] [place] [facility] [address] [id number] [place] [address]- 3125 Dec, [facility] [place] [facility] [address] [id number] [place] [address]- 2400 04 Sep, 2012 [facility] [address] [id number] [place] [address]- 4487 28 Aug, 2012 [facility] [address] [id number] [place] [address]- 4136 21 Aug, 2012 [facility] [address] [id number] [place] [address] 2546 18 Aug, 2012 [facility] [address] [id number] [place] [address]- 2053 15 Aug, 2012 [facility] [address] [id number] [place] [address]- 7506 14 Aug, 2012 [facility] [address] [id number] [place] [address]- 9266 11 Aug, 2012 [facility] [address] [id number] [place] [address]- 9512 16 Jul, 2012 [facility] [place] [facility] [address] [id number] [place] [address]- 1006 15 Jul, 2012 [facility] [address] [id number] [place] [address]- 8819 Jul, [facility] [address] [id number] [place] [address]- 7246 Jul, [facility] [address] [id number], [place] [address]- 5975 Jul, [facility] [place] [facility] [address] [id number], [place] [address]- 3158 Jul, [facility] [place] [facility] [address] [id number] [place] [address]- 6579 May, [facility] [place] [facility] [address] [id number] [place] [address]- 1046 May, [facility] [place] [facility] [address] [id number] [place] [address] 2546 May, [facility] [place] [facility] [address] [id number] [place] [address]- 5753 18 May, 2012 [facility] [place] [facility] [address] [id number] [place] [address]- 5066 May, [facility] [place] [facility] [address] [id number] [place] [address]- 4006 May, [facility] [place] [facility] [address] [id number] [place] [address]- 7192 Mar, [facility] [place] [facility] [address] [id number] [place] [address]- 8903 Mar, [facility] [place] [facility] [address] [id number] [place] [address]- 6200 Mar, [facility] [place] [facility] [address] [id number] [place] [address]- 3686 Mar, [facility] [place] [facility] [address] [id number] [place] [address]- 3416 Mar, [facility] [place] [facility] [address] [id number] [place] [address]- 3481 Mar, [facility] [place] [facility] [address] [id number] [place] [address]- 7743 Mar, [facility] [place] [facility] [address] [facility] [id number] [place] [address]- 2179 Dec, [facility] [place] [facility] [address] [id number] [place] [address]- 9281 Nov, [facility] [place] [facility] [address] [id number] [place] [address] 2540 Sep, [facility] [place] [facility] [address] [id number] [place] [address]- 8767 29 Aug, 2011 [facility] [place] [facility] [address] [id number] [place] [address] 2546 Aug, [facility] [place] [facility] [address] [id number] [place] [address]- 0866 Aug, [facility] [place] [facility] [address] [id number] [place] [address]- 2148 Aug, [facility] [place] [facility] [address] [id number] [place] [address]- 2505 Aug, [facility] [place] [facility] [address] [id number] [place] [address]- 3796 Aug, [facility] [place] [facility] [address] [id number] [place] [address]- 4771 Jul, [facility] [address] [id number] [place] [address]- 0005 Jul, [facility] [place] [facility] [address] [id number] [place] [address]- 8247 Jul, [facility] [address] [id number] [place] [address]- 4561 May, [facility] [place] [facility] [address] [id number] [place] [address]- 9565 May, [facility] [place] [facility] [address] [id number] [place] [address]- 9273 Mar, [facility] [place] [facility] [address] [id number] [place] [address]- 5688 Mar, [facility] [place] [facility] [address] [id number] [place] [address]- 7881 Mar, [facility] [place] [facility] [address] [id number] [place] [address]- 9551 Mar, [facility] [place] [facility] [address] [id number] [place] [address]- 1633 Dec, [facility] [place] [facility] [address] [id number] [place] [address]- 8594 14 May, 2010 [facility] [place] [facility] [address] [id number] [place] [address]- 9143 06 May, 2010 [facility] [place] [facility] [address] [id number], [place] [address]- 2776 May, [facility] [address] [facility] [id number], [place] [address]- 7010 14 Mar, [address] [facility] [address] [facility] [id number], [place] [address] 14 Mar, [address] [facility] [address] [facility] [id number], [place] [address] [address] Jan[facility] [address] [facility] [id number] [address] Aug, [facility] [address] [facility] [id number], [place] [address] [address] May, [facility] [address] [facility] [id number], [place] [address] May, [facility] [address] [id number] [address] 16 May, 2009 [facility] [address] [facility] [id number], [place] [address] 16 May, 2009 [facility] [address] [id number], [place] [address] May, [facility] [address] [facility] [id number], [place] [address] Mar, [facility] [address] [facility] [id number], [place] [address] 10 Jul, 2006 [facility] [address] [facility] [id number], [place] [address] 14 May, 2006 [facility] [address] [facility] [id number] 11 Mar, 2006 [facility] [address] [facility] [id number], [place] [address] 20 Sep, 2004 [facility] [address] 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 PLAN OF CARE Activity Details Follow Up prn Reason:as needed VITAL SIGNS Height 66 in 2018-03-21 Blood pressure systolic 125 mmHg 2018-03-21 Blood pressure diastolic 84 mmHg 2018-03-21 MEDICATIONS Medication Instructions Dosage Frequency Start Date End Date Duration Status Diflucan 150 MG Orally once 1 tablet October, 1 dose Not-Taking Paxil 10 mg Orally Once a day at bedtime 1 tablet Sep, 30 day (s) Not-Taking Amoxicillin 500 mg Orally every 8 hrs 1 capsule 8h Mar, 10 day( s) Not-Taking Lamictal 25 MG Orally Once a day for two weeks, then 2 tablets daily 1 tablet Sep, 30 day(s) Not-Taking RESULTS No Results PROCEDURES Procedure Date Ordered Result Body Site INTRAORL-PERIAPICAL 1 FILM [id number] Mar 21, 2018 [place] COMPS - UNUSUL CIRCUMSTANCES RPT Mar 21, 2018 INSTRUCTIONS MEDICATIONS ADMINISTERED No Known Medications MEDICAL [...]
--- OUTSIDE RECORDS SUMMARY | 2018-05-01 20:26 | XMS REPORT ---
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 [employer] Real [employer] Name Role Phone JOSHUA STACK Unavailable PROBLEMS Type Condition ICD9-CM Code [id number] Code Onset Dates Condition Status SNOMED Code Problem Irregular menses N92.6 Active 33962821 Problem Generalized anxiety disorder F41.1 Active 27886856 Problem Unspecified mood [affective] disorder F39 Active 500652063 Problem PCOS (polycystic ovarian syndrome) E28.2 Active 64441410 Problem IBS (irritable bowel syndrome) K58.9 Active 64585016 Problem Tobacco abuse Z72.0 Active 01924607 Problem Tobacco abuse counseling Z71.6 Active 858177572 Problem Abnormal uterine bleeding N93.9 Active 98637781261600 Problem Other chronic pain G89.29 Active 07996944 Problem History of drug dependence/abuse F19.21 Active Problem Chronic posttraumatic stress disorder F43.12 Active 569466779 Problem Bipolar II disorder F31.81 Active 27472638 Problem PTSD (post-traumatic stress disorder) F43.10 Active 90572110 ALLERGIES No Known Allergies ENCOUNTERS Encounter Location Date Diagnosis [facility] [id number] [place] [address] 78157- 7261 May, [facility] [id number] [place] [address] 56047- 1603 Mar, Upper respiratory infection, viral J06.9 and Dysuria R30.0 [facility] [id number] [place] [address] [id number] Mar, Dental examination Z01.20 [facility] [id number] [place] [address] [id number] Mar, Dental examination Z01.20 [facility] [id number] [place] [address] [id number] Mar, Caries K02.9 [facility] [address] [id number] [id number] 13 Mar, 2018 Dental examination Z01.20 [place] [id number] [place] [address] 18761- 5441 17 Dec, 2017 [place] [id number] [place] [address] 22921- 4126 17 Dec, 2017 [place] [id number] [place] [address] 30026- 8845 28 Nov, 2017 Irregular menses N92.6 ; Abnormal uterine bleeding N93.9 ; History of PCOS Z87.42 and History of unprotected sex Z72.51 [place] [id number] [place] [address] 14493- 6805 October, [place] [id number] [place] [address] 33409- 7564 18 Oct, 2017 Low back pain M54.5 ; Dysuria R30.0 ; Other chronic pain G89.29 and Routine gynecological examination Z01.419 [place] [id number] [place] [address] 44593- 4613 16 Oct, 2017 Dysuria R30.0 and Vaginal discharge N89.8 [place] [id number] [place] [address] 67261- 5056 24 Sep, 2017 Bipolar II disorder F31.81 ; PTSD (post-traumatic stress disorder) F43.10 ; Generalized anxiety disorder F41.1 and History of drug dependence/abuse F19.21 [place] [address] [place] [address] 02456- 5842 Sep, Unspecified mood [affective] disorder F39 and Post- traumatic stress disorder, unspecified F43.10 [place] [address] [place] [address] 07563- 3747 Aug, PCOS (polycystic ovarian syndrome) E28.2 ; Recurrent major depressive disorder, in full remission F33.42 ; IBS (irritable bowel syndrome) K58.9 and Tobacco abuse Z72.0 [place] [id number] [place] [address] 26079- 6877 Aug, Generalized anxiety disorder F41.1 and Depressive disorder, not elsewhere classified F32.9 [place] [id number] [place] [address] 01274- 6052 Aug, PCOS (polycystic ovarian syndrome) E28.2 ; Recurrent major depressive disorder, in full remission F33.42 ; IBS (irritable bowel syndrome) K58.9 ; Tobacco abuse Z72.0 ; Tobacco abuse counseling Z71.6 ; Dysuria R30.0 ; Irregular menses N92.6 ; Vaginal candidiasis B37.3 and Acute cystitis without hematuria N30.00 [place] [id number] [place] [address] 61487- 8350 May, [place] [address] 45587- 6524 18 Mar, 2017 Vaginal discharge N89.8 and Recurrent candidiasis of vagina B37.3 [place] [id number] [place] [address] 05354- 5313 13 Mar, 2017 Nausea and vomiting in adult R11.2 ; Sore throat J02.9 and Diarrhea, unspecified type R19.7 [place] [id number] [place] [address] 55474- 6370 11 Mar, 2017 [place] [id number] [place] [address] 00118- 1720 14 Jan, 2017 Vaginal discharge N89.8 ; Dysuria R30.0 ; High risk sexual behavior Z72.51 ; Major depressive disorder, single episode F32.9 and Vaginal candidiasis B37.3 [place] [id number] [place] [address] 66623- 0110 03 Jan, 2017 Anxiety F41.9 [place] [id number] [place] [address] 17841- 1447 Dec, [place] [address] 76951- 9134 Nov, Generalized anxiety disorder F41.1 ; Depressive disorder, not elsewhere classified F32.9 ; History of drug dependence/abuse F19.21 and 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 [facility] [id number] [place] [address] 50557- 4958 Nov, Vaginal discharge N89.8 ; High risk sexual behavior Z72.51 ; Potential exposure to STD Z20.2 and Vaginal candidiasis B37.3 [facility] [address] 79958- 7369 Nov, History of drug dependence/abuse F19.21 and Major depressive disorder, single episode F32.9 [place] [address] 53210- 1374 Nov, Right medial knee pain M25.561 [place] [address] 49661- 4843 October, Nausea and vomiting, intractability of vomiting not specified, unspecified vomiting type R11.2 and Acute pyelonephritis N10 [address] [place] [address] 04785- 4041 Sep, Major depressive disorder, single episode F32.9 ; Alcohol abuse F10.10 and Tobacco abuse Z72.0 [place] [id number] [place] [address] 24180- 7363 Sep, Major depressive disorder, single episode F32.9 ; Alcohol abuse F10.10 and History of drug dependence/abuse F19.21 [facility] [id number] [place] [address] 96138- 6227 Sep, Major depressive disorder, single episode F32.9 [facility] [address] 52218 -6490 Aug, Acute cystitis with hematuria N30.01 and Dysuria R30.0 [facility] [address] 64275- 8452 Aug, Dysuria R30.0 ; Vaginal candidiasis B37.3 ; Vaginal discharge N89.8 and High risk sexual behavior Z72.51 [place] [id number] [place] [address] 63429- 8480 Jul, [facility] [address] 37903- 9614 Jul, Major depressive disorder, single episode F32.9 ; History of drug dependence/abuse F19.21 ; Alcohol abuse F10.10 and Tobacco abuse Z72.0 [facility] [address] [id number] May, Dental examination Z01.20 and Dental caries K02.9 [place] [address] 03940- 6551 May, Fatigue, unspecified type R53.83 and Cough R05 [place] [address] 66631- 0556 May, [place] [address] 17043- 6837 Mar, [place] [address] 97718- 4350 Mar, [place] [id number] [place] [address] 16406- 0018 Mar, [place] [address] 56471- 8257 Mar, [place] [address] 22896- 8338 Mar, Absence of menstruation N91.2 ; Vagina itching L29.8 ; History of drug dependence/abuse F19.21 ; History of PID Z87.42 and Acute cystitis without hematuria N30.00 [place] [id number] [place] [address] 06025- 5395 Sep, Routine health maintenance Z00.00 ; Late menses N91.0 ; History of drug dependence/abuse F19.21 ; Alcohol abuse F10.10 ; Tobacco abuse Z72.0 ; Tobacco abuse counseling Z71.6 and Back pain M54.9 [facility] [id number] [place] [address] [id number] 18 Aug, 2015 Dental examination Z01.20 and Dental caries K02.[address] 84919- 0393 Jul, [address] 95236- 9328 Jul, Surveillance of contraceptive injection Z30.[address] 05020- 0645 Jul, Routine screening for STI (sexually transmitted infection) Z11.3 ; Drug use F19.90 ; Counseling on substance use and abuse Z71.89 ; Unprotected sexual intercourse Z72.51 ; Encounter for counseling regarding contraception Z30.9 ; Vaginal discharge N89.8 and Skin lesions L98.[address] 13573- 3805 30 May, [address] 98245- 5535 May, Yeast infection B37.[address] 30369- 0696 May, Excessive and frequent menstruation with irregular cycle N92.1 ; Other fatigue R53.83 ; General counseling and advice for contraceptive management Z30.09 ; Evaluation for contraceptive injection Z30.013 ; Cough R05 ; Vaginal irritation N89.8 and Dizziness R42 [address] 32901- 5540 Sep, [address] 38609- 4850 Sep, [address] 03595- 3725 Aug, [facility] [place] [facility] [address] [id number] [place] [address]- 9083 Aug, [facility] [place] [facility] [address] [id number] [place] [address]- 2056 Aug, [facility] [place] [facility] [address] [id number] [place] [address]- 6170 Aug, [facility] [place] [facility] [address] [id number] [place] [address]- 2883 Aug, [facility] [place] [facility] [address] [id number] [place] [address]- 0986 Aug, [facility] [place] [facility] [address] [id number] [place] [address]- 8767 Aug, [facility] [place] [facility] [address] [facility] [id number] [place] [address]- 8322 Aug, [facility] [place] [facility] [address] [id number] [place] [address]- 2284 Aug, [facility] [place] [facility] [address] [id number] [place] [address]- 0145 Aug, [facility] [place] [facility] [address] [facility] [id number] [place] [address]- 0873 Aug, [facility] [place] [facility] [address] [facility] [id number] [place] [address]- 2543 Aug, [facility] [place] [facility] [address] [facility] [id number] [place] [address]- 3124 Jul, [facility] [place] [facility] [address] [id number] [place] [address]- 0559 Jul, [facility] [place] [facility] [address] [facility] [id number] [place] [address]- 3411 May, [facility] [place] [facility] [address] [id number] [place] [address]- 0391 May, [facility] [place] [facility] [address] [id number] [place] [address]- 6520 May, [facility] [place] [facility] [address] [id number] [place] [address]- 9080 May, [facility] [place] [facility] [address] [id number] [place] [address]- 7937 Mar, [facility] [place] [facility] [address] [id number] [place] [address]- 7241 Mar, [facility] [place] [facility] [address] [id number] [place] [address]- 7712 Mar, [facility] [place] [facility] [address] [id number] [place] [address]- 6152 Mar, [facility] [place] [facility] [address] [id number] [place] [address]- 5031 Mar, [facility] [place] [facility] [address] [id number] [place] [address]- 1685 Mar, [facility] [place] [facility] [address] [id number] [place] [address]- 6454 Mar, [facility] [place] [facility] [address] [id number] [place] [address]- 4206 Mar, [facility] [place] [facility] [address] [id number] [place] [address]- 2893 Mar, [facility] [place] [facility] [address] [id number] [place] [address]- 8773 Mar, [facility] [place] [facility] [address] [id number] [place] 2785 Jan, [facility] [place] [facility] [address] [id number] [place] 3981 Jan, [facility] [place] [facility] [address] [id number] [place] [address]- 3104 Nov, [facility] [place] [facility] [address] [id number] [address]- 5364 Nov, [facility] [address] [id number] [place] [address]- 2471 October, [facility] [place] [facility] [address] [id number] [place] [address]- 0913 October, [facility] [place] [facility] [address] [id number] [place] [address]- 0856 October, [facility] [place] [facility] [address] [id number] [place] [address]- 8039 October, [facility] [place] [facility] [address] [id number] [place] [address]- 8120 October, [facility] [place] [facility] [address] [id number] [place] [address]- 4839 October, [facility] [place] [facility] [address] [id number] [place] [address]- 0689 October, [facility] [place] [facility] [address] [id number] [place] [address]- 8217 October, [facility] [place] [facility] [address] [id number] [place] [address]- 8579 Sep, [facility] [place] [facility] [address] [id number] [place] [address]- 9302 Sep, [facility] [place] [facility] [address] [id number] [place] [address]- 9514 Aug, [facility] [place] [facility] [address] [id number] [place] [address]- 8545 Aug, [facility] [place] [facility] [address] [id number] [place] [address]- 3879 Aug, [facility] [place] [facility] [address] [id number] [place] [address]- 2444 Aug, [facility] [place] [facility] [address] [facility] [id number] [place] [address]- 6600 May, [facility] [place] [facility] [address] [id number] [place] [address]- 1781 May, [facility] [place] [facility] [address] [id number] [place] [address]- 2815 May, [facility] [place] [facility] [address] [id number] [place] 8680 May, [facility] [place] [facility] [address] [id number] [place] [address]- 4226 May, [facility] [place] [facility] [address] [id number] [place] [address]- 0825 May, [facility] [place] [facility] [address] [id number] [place] [address]- 0730 May, [facility] [place] [facility] [address] [id number] [place] [address]- 1123 May, [facility] [place] [facility] [address] [id number] [place] [address]- 5343 Mar, [facility] [place] [facility] [address] [id number] [place] [address]- 1016 Mar, [facility] [place] [facility] [address] [id number] [place] 5212 Mar, [facility] [place] [facility] [address] [id number] [place] 8907 Jan, [facility] [place] [facility] [address] [id number] [place] [address]- 0400 Jan, [facility] [place] [facility] [address] [id number] [place] [address]- 1477 Dec, [facility] [place] [facility] [address] [id number] [place] [address]- 4510 Dec, [facility] [place] [facility] [address] [id number] [place] [address]- 2191 Dec, [facility] [place] [facility] [address] [id number] [place] [address]- 3466 04 Sep, 2012 [facility] [address] [id number] [place] [address]- 6699 28 Aug, 2012 [facility] [address] [id number] [place] [address]- 7126 21 Aug, 2012 [facility] [address] [id number] [place] [address] 2546 18 Aug, 2012 [facility] [address] [id number] [place] [address]- 4500 15 Aug, 2012 [facility] [address] [id number] [place] [address]- 5234 14 Aug, 2012 [facility] [address] [id number] [place] [address]- 5636 11 Aug, 2012 [facility] [address] [id number] [place] [address]- 9214 16 Jul, 2012 [facility] [place] [facility] [address] [id number] [place] [address]- 3009 15 Jul, 2012 [facility] [address] [id number] [place] [address]- 0194 Jul, [facility] [address] [id number] [place] [address]- 4999 Jul, [facility] [address] [id number], [place] [address]- 5812 Jul, [facility] [place] [facility] [address] [id number], [place] [address]- 8485 Jul, [facility] [place] [facility] [address] [id number] [place] [address]- 9366 May, [facility] [place] [facility] [address] [id number] [place] [address]- 5336 May, [facility] [place] [facility] [address] [id number] [place] [address] 2546 May, [facility] [place] [facility] [address] [id number] [place] [address]- 2153 18 May, 2012 [facility] [place] [facility] [address] [id number] [place] [address]- 6586 May, [facility] [place] [facility] [address] [id number] [place] [address]- 5636 May, [facility] [place] [facility] [address] [id number] [place] [address]- 4764 Mar, [facility] [place] [facility] [address] [id number] [place] [address]- 7698 Mar, [facility] [place] [facility] [address] [id number] [place] [address]- 1236 Mar, [facility] [place] [facility] [address] [id number] [place] [address]- 0765 Mar, [facility] [place] [facility] [address] [id number] [place] [address]- 0768 Mar, [facility] [place] [facility] [address] [id number] [place] [address]- 3673 Mar, [facility] [place] [facility] [address] [id number] [place] [address]- 9257 Mar, [facility] [place] [facility] [address] [facility] [id number] [place] [address]- 9393 Dec, [facility] [place] [facility] [address] [id number] [place] [address]- 1190 Nov, [facility] [place] [facility] [address] [id number] [place] [address] 2548 Sep, [facility] [place] [facility] [address] [id number] [place] [address]- 2943 29 Aug, 2011 [facility] [place] [facility] [address] [id number] [place] [address] 2546 Aug, [facility] [place] [facility] [address] [id number] [place] [address]- 8768 Aug, [facility] [place] [facility] [address] [id number] [place] [address]- 6350 Aug, [facility] [place] [facility] [address] [id number] [place] [address]- 0834 Aug, [facility] [place] [facility] [address] [id number] [place] [address]- 5123 Aug, [facility] [place] [facility] [address] [id number] [place] [address]- 3248 Jul, [facility] [address] [id number] [place] [address]- 6357 Jul, [facility] [place] [facility] [address] [id number] [place] [address]- 5484 Jul, [facility] [address] [id number] [place] [address]- 5275 May, [facility] [place] [facility] [address] [id number] [place] [address]- 7053 May, [facility] [place] [facility] [address] [id number] [place] [address]- 5637 Mar, [facility] [place] [facility] [address] [id number] [place] [address]- 3670 Mar, [facility] [place] [facility] [address] [id number] [place] [address]- 9101 Mar, [facility] [place] [facility] [address] [id number] [place] [address]- 4368 Mar, [facility] [place] [facility] [address] [id number] [place] [address]- 1134 Dec, [facility] [place] [facility] [address] [id number] [place] [address]- 9987 14 May, 2010 [facility] [place] [facility] [address] [id number] [place] [address]- 6371 06 May, 2010 [facility] [place] [facility] [address] [id number], [place] [address]- 7505 May, [facility] [address] [facility] [id number], [place] [address]- 9748 14 Mar, 2010 [facility] [address] [facility] [id number], [place] [address]- 5406 14 Mar, 2010 [facility] [address] [facility] [id number], [place] [address]- 5161 Jan, [facility] [address] [facility] [id number] 9464 Aug, [facility] [address] [facility] [id number], [place] [address]- 2137 May, [facility] [address] [facility] [id number], [place] [address]- 0496 May, [facility] [address] [id number] 7713 16 May, 2009 [facility] [address] [facility] [id number], [place] [address]- 8392 16 May, 2009 [facility] [address] [id number] [address]- 0332 May, [facility] [address] [facility] [id number], [place] [address]- 3358 Mar, [facility] [address] [facility] [id number], [place] [address] 10 Jul, 2006 [facility] [address] [facility] [id number] [address] 14 May, 2006 [facility] [address] [facility] [id number] [address] 11 Mar, 2006 [facility] [address] [facility] [id number], [place] [address] 20 Sep, 2004 [facility] [address] [facility] [id number] [id number] 12 Jul, 2004 IMMUNIZATIONS No Known Immunizations SOCIAL HISTORY Never Assessed REASON FOR VISIT TE #31 PLAN OF CARE Activity Details Follow Up prn Reason:Pt. will call for appointment VITAL SIGNS Height 66 in 2018-03-19 Blood pressure systolic 125 mmHg 2018-03-19 Blood pressure diastolic 87 mmHg 2018-03-19 MEDICATIONS Medication Instructions Dosage Frequency Start Date End Date Duration Status Diflucan 150 MG Orally once 1 tablet October, 1 dose Not-Taking Lamictal 25 MG Orally Once a day for two weeks, then 2 tablets daily 1 tablet Sep, 30 day(s) Not-Taking Paxil 10 mg Orally Once a day at bedtime 1 tablet Sep, 30 day (s) Not-Taking Amoxicillin 500 mg Orally every 8 hrs 1 capsule 8h Mar, 10 day( s) Active RESULTS No Results PROCEDURES Procedure Date Ordered Result Body Site EXTRAC ERUPTED TOOTH/EXPOSED ROOT Mar 19, 2018 INSTRUCTIONS MEDICATIONS ADMINISTERED No Known Medications [...]
--- OUTSIDE RECORDS SUMMARY | 2018-05-01 20:26 | XMS REPORT ---
Author Author KRISTENJOSHUA NICHOLAS [facility] Address Unknown Care Team Providers Care Skip Loader Name Role Phone JOSHUA STACK Unavailable PROBLEMS Type Condition ICD9-CM Code EOV79-QL Code Onset Dates Condition Status SNOMED Code Problem Irregular menses N92.6 Active 44001888 Problem Generalized anxiety disorder F41.1 Active 24614063 Problem Unspecified mood [affective] disorder F39 Active 747285847 Problem PCOS (polycystic ovarian syndrome) E28.2 Active 67138711 Problem IBS (irritable bowel syndrome) K58.9 Active 89562055 Problem Tobacco abuse Z72.0 Active 33387083 Problem Tobacco abuse counseling Z71.6 Active 324092040 Problem Abnormal uterine bleeding N93.9 Active 15206959220664 Problem Other chronic pain G89.29 Active 94564934 Problem History of drug dependence/abuse F19.21 Active Problem Chronic posttraumatic stress disorder F43.12 Active 474059257 Problem Bipolar II disorder F31.81 Active 39070823 Problem PTSD (post-traumatic stress disorder) F43.10 Active 12769814 ALLERGIES No Information ENCOUNTERS Encounter Location Date Diagnosis [facility] [id number] [place] [address] 90705- 9121 May, [facility] [id number] [place] [address] 72232- 2937 Mar, Upper respiratory infection, viral J06.9 and Dysuria R30.0 [facility] [id number] [place] [address] [id number] Mar, Dental examination Z01.20 [facility] [id number] [place] [address] [id number] Mar, Dental examination Z01.20 [facility] [id number] [place] [address] [phone] Mar, Caries K02.9 [facility] [address] [id number] [id number] 13 Mar, 2018 Dental examination Z01.20 [facility] [facility] [id number] [place] [address] 16912- 3596 17 Dec, 2017 [place] [facility] [id number] [place] [address] 37998- 6854 17 Dec, 2017 [place] [id number] [place] [address] 32873- 4073 28 Nov, 2017 Irregular menses N92.6 ; Abnormal uterine bleeding N93.9 ; History of PCOS Z87.42 and History of unprotected sex Z72.51 [place] [facility] [id number] [place] [address] 52327- 6196 October, [place] [id number] [place] [address] 54725- 6892 October, Low back pain M54.5 ; Dysuria R30.0 ; Other chronic pain G89.29 and Routine gynecological examination Z01.419 [facility] [facility] [id number] [place] [address] 17600- 1777 16 Oct, 2017 Dysuria R30.0 and Vaginal discharge N89.8 [place] [address] [place] [address] 72073- 6309 24 Sep, 2017 Bipolar II disorder F31.81 ; PTSD (post-traumatic stress disorder) F43.10 ; Generalized anxiety disorder F41.1 and History of drug dependence/abuse F19.21 [place] [address] [place] [address] 76829- 9617 Sep, Unspecified mood [affective] disorder F39 and Post- traumatic stress disorder, unspecified F43.10 [address] [address] [place] [address] 42319- 5855 Aug, PCOS (polycystic ovarian syndrome) E28.2 ; Recurrent major depressive disorder, in full remission F33.42 ; IBS (irritable bowel syndrome) K58.9 and Tobacco abuse Z72.0 [place] [id number] [place] [address] 89572- 3438 Aug, Generalized anxiety disorder F41.1 and Depressive disorder, not elsewhere classified F32.9 [place] [facility] [id number] [place] [address] 51547- 5968 Aug, PCOS (polycystic ovarian syndrome) E28.2 ; Recurrent major depressive disorder, in full remission F33.42 ; IBS (irritable bowel syndrome) K58.9 ; Tobacco abuse Z72.0 ; Tobacco abuse counseling Z71.6 ; Dysuria R30.0 ; Irregular menses N92.6 ; Vaginal candidiasis B37.3 and Acute cystitis without hematuria N30.00 [place] [id number] [place] [address] 11670- 3025 May, [place] [address] 92520- 4117 18 Mar, 2017 Vaginal discharge N89.8 and Recurrent candidiasis of vagina B37.3 [place] [id number] [place] [address] 38969- 3264 13 Mar, 2017 Nausea and vomiting in adult R11.2 ; Sore throat J02.9 and Diarrhea, unspecified type R19.7 [place] [id number] [place] [address] 10376- 4123 11 Mar, 2017 [place] [id number] [place] [address] 53218- 4047 14 Jan, 2017 Vaginal discharge N89.8 ; Dysuria R30.0 ; High risk sexual behavior Z72.51 ; Major depressive disorder, single episode F32.9 and Vaginal candidiasis B37.3 [place] [id number] [place] [address] 63740- 0748 03 Jan, 2017 Anxiety F41.9 [place] [id number] [place] [address] 32007- 7917 Dec, [address] [address] 90659- 7150 Nov, Generalized anxiety disorder F41.1 ; Depressive disorder, not elsewhere classified F32.9 ; History of drug dependence/abuse F19.21 and 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 [facility] [id number] [place] [address] 71793- 7262 Nov, Vaginal discharge N89.8 ; High risk sexual behavior Z72.51 ; Potential exposure to STD Z20.2 and Vaginal candidiasis B37.3 [address] [place] 83289- 4441 Nov, History of drug dependence/abuse F19.21 and Major depressive disorder, single episode F32.9 [address] [address] 25662- 0895 Nov, Right medial knee pain M25.561 [address] [address] 04576- 7703 October, Nausea and vomiting, intractability of vomiting not specified, unspecified vomiting type R11.2 and Acute pyelonephritis N10 [address] [address] 54484- 2972 Sep, Major depressive disorder, single episode F32.9 ; Alcohol abuse F10.10 and Tobacco abuse Z72.0 [place] [address] 48578- 7882 Sep, Major depressive disorder, single episode F32.9 ; Alcohol abuse F10.10 and History of drug dependence/abuse F19.21 [facility] [id number] [place] [address] 78097- 1075 Sep, Major depressive disorder, single episode F32.9 [facility] [address] 69174 -0442 Aug, Acute cystitis with hematuria N30.01 and Dysuria R30.0 [facility] [address] 90005- 4331 Aug, Dysuria R30.0 ; Vaginal candidiasis B37.3 ; Vaginal discharge N89.8 and High risk sexual behavior Z72.51 [place] [facility] [id number] [place] [address] 71299- 3322 Jul, [facility] [address] 30927- 2973 Jul, Major depressive disorder, single episode F32.9 ; History of drug dependence/abuse F19.21 ; Alcohol abuse F10.10 and Tobacco abuse Z72.0 [facility] [address] [id number] May, Dental examination Z01.20 and Dental caries K02.9 [place] [address] 69088- 1857 May, Fatigue, unspecified type R53.83 and Cough R05 [address] [address] 68192- 6757 May, [place] [address] 12326- 7623 Mar, [address] [address] 24724- 3231 Mar, [place] [id number] [place] [address] 27332- 3544 Mar, [place] [address] 00745- 7825 Mar, [place] [address] 37522- 4302 Mar, Absence of menstruation N91.2 ; Vagina itching L29.8 ; History of drug dependence/abuse F19.21 ; History of PID Z87.42 and Acute cystitis without hematuria N30.00 [place] [id number] [place] [address] 50857- 0525 Sep, Routine health maintenance Z00.00 ; Late menses N91.0 ; History of drug dependence/abuse F19.21 ; Alcohol abuse F10.10 ; Tobacco abuse Z72.0 ; Tobacco abuse counseling Z71.6 and Back pain M54.9 [facility] [address] [id number] 18 Aug, 2015 Dental examination Z01.20 and Dental caries K02.[address] 59548- 5353 Jul, [address] 85489- 3396 Jul, Surveillance of contraceptive injection Z30.[address] 03214- 3326 Jul, Routine screening for STI (sexually transmitted infection) Z11.3 ; Drug use F19.90 ; Counseling on substance use and abuse Z71.89 ; Unprotected sexual intercourse Z72.51 ; Encounter for counseling regarding contraception Z30.9 ; Vaginal discharge N89.8 and Skin lesions L98.[address] 87362- 9848 30 May, [address] 34671- 4798 May, Yeast infection B37.[address] 12539- 1424 May, Excessive and frequent menstruation with irregular cycle N92.1 ; Other fatigue R53.83 ; General counseling and advice for contraceptive management Z30.09 ; Evaluation for contraceptive injection Z30.013 ; Cough R05 ; Vaginal irritation N89.8 and Dizziness R42 [address] 57514- 8581 Sep, [address] 18810- 7888 Sep, [address] 25529- 2966 Aug, [facility] [place] [facility] [address] [id number] [place] [address]- 5344 Aug, [facility] [place] [facility] [address] [id number] [place] [address]- 8696 Aug, [facility] [place] [facility] [address] [facility] [id number] [place] [address]- 9592 Aug, [facility] [place] [facility] [address] [id number] [place] [address]- 5802 Aug, [facility] [place] [facility] [address] [id number] [place] [address]- 3693 Aug, [facility] [place] [facility] [address] [facility] [id number] [place] [address]- 7058 Aug, [facility] [place] [facility] [address] [facility] [id number] [place] [address]- 7112 Aug, [facility] [place] [facility] [address] [facility] [id number] [place] [address]- 1472 Aug, [facility] [place] [facility] [address] [facility] [id number] [place] [address]- 4224 Aug, [facility] [place] [facility] [address] [facility] [id number] [place] [address]- 3201 Aug, [facility] [place] [facility] [address] [facility] [id number] [place] [address]- 2830 Aug, [facility] [place] [facility] [address] [facility] [id number] [address]- 6988 Jul, [facility] [place] [facility] [address] [id number] [place] [address]- 8274 Jul, [facility] [place] [facility] [address] [facility] [id number] [place] [address]- 7045 May, [facility] [place] [facility] [address] [facility] [id number] [address]- 0759 May, [facility] [place] [facility] [address] [id number] [place] [address]- 3672 May, [facility] [place] [facility] [address] [id number] [place] [address]- 0487 May, [facility] [place] [facility] [address] [id number] [place] [address]- 1710 Mar, [facility] [place] [facility] [address] [id number] [place] [address]- 5145 Mar, [facility] [place] [facility] [address] [id number] [place] [address]- 2377 Mar, [facility] [place] [facility] [address] [id number] [place] [address]- 2350 Mar, [facility] [place] [facility] [address] [id number] [place] [address]- 3649 Mar, [facility] [place] [facility] [address] [id number] [place] [address]- 3393 Mar, [facility] [place] [facility] [address] [id number] [place] [address]- 0594 Mar, [facility] [place] [facility] [address] [id number] [place] [address]- 7526 Mar, [facility] [place] [facility] [address] [id number] [place] [address]- 5134 Mar, [facility] [place] [facility] [address] [id number] [place] [address]- 7590 Mar, [facility] [place] [facility] [address] [id number] [place] [address]- 5419 Jan, [facility] [place] [facility] [address] [id number] [place] [address]- 6285 Jan, [facility] [place] [facility] [address] [id number] [place] [address]- 1056 Nov, [facility] [place] [facility] [address] [id number] [place] [address]- 6330 Nov, [facility] [place] [facility] [address] [id number] [place] [address]- 6384 October, [facility] [place] [facility] [address] [id number] [place] [address]- 2350 October, [facility] [place] [facility] [address] [id number] [place] [address]- 9691 October, [facility] [place] [facility] [address] [id number] [place] [address]- 9341 October, [facility] [place] [facility] [address] [id number] [place] [address]- 4385 October, [facility] [place] [facility] [address] [id number] [place] [address]- 2308 October, [facility] [place] [facility] [address] [id number] [place] [address]- 8591 October, [facility] [place] [facility] [address] [id number] [place] [address]- 8461 October, [facility] [place] [facility] [address] [id number] [place] [address]- 1608 Sep, [facility] [place] [facility] [address] [id number] [place] [address]- 6099 Sep, [facility] [place] [facility] [address] [id number] [place] [address]- 6196 Aug, [facility] [place] [facility] [address] [id number] [place] [address]- 4988 Aug, [facility] [place] [facility] [address] [id number] [place] [address]- 2411 Aug, [facility] [place] [facility] [address] [id number] [place] [address]- 8879 Aug, [facility] [place] [facility] [address] [id number] [place] [address]- 9445 May, [facility] [place] [facility] [address] [id number] [place] [address]- 8712 May, [facility] [place] [facility] [address] [id number] [place] [address]- 7755 May, [facility] [place] [facility] [address] [id number] [place] [address]- 8219 May, [facility] [place] [facility] [address] [id number] [place] [address]- 6707 May, [facility] [place] [facility] [address] [id number] [place] [address]- 5235 May, [facility] [place] [facility] [address] [id number] [place] [address]- 3380 May, [facility] [place] [facility] [address] [id number] [place] [address]- 1453 May, [facility] [place] [facility] [address] [id number] [place] [address]- 9601 Mar, [facility] [place] [facility] [address] [id number] [place] 5[place] Mar, [facility] [place] [facility] [address] [id number] [place] [address]- 1722 Mar, [facility] [place] [facility] [address] [id number] [place] [address]- 4821 Jan, [facility] [place] [facility] [address] [id number] [place] [address]- 3039 Jan, [facility] [place] [facility] [address] [id number] [place] [address]- 4757 Dec, [facility] [place] [facility] [address] [id number] [place] [address]- 5363 Dec, [facility] [place] [facility] [address] [id number] [place] [address]- 1273 Dec, [facility] [place] [facility] [address] [id number] [place] [address]- 3023 04 Sep, 2012 [facility] [address] [id number] [place] [address]- 2315 28 Aug, 2012 [facility] [address] [id number] [place] [address]- 0319 21 Aug, 2012 [facility] [address] [id number] [place] [address]- 2699 18 Aug, 2012 [facility] [address] [id number] [place] [address]- 3342 15 Aug, 2012 [facility] [address] [id number] [place] [address]- 7233 14 Aug, 2012 [facility] [address] [id number] [place] [address]- 1905 11 Aug, 2012 [facility] [address] [id number] [place] [address]- 8948 16 Jul, 2012 [facility] [address] [id number] [place] [address]- 2220 15 Jul, 2012 [facility] [address] [id number] [place] [address]- 9982 Jul, [facility] [address] [id number] [place] [address]- 5661 Jul, [facility] [address] [id number], [place] [address]- 6637 Jul, [facility] [place] [facility] [address] [id number], [place] [address]- 8738 Jul, [facility] [place] [facility] [address] [id number] [place] [address]- 9020 May, [facility] [place] [facility] [address] [id number] [place] [address]- 3171 May, [facility] [place] [facility] [address] [id number] [place] [address]- 2701 May, [facility] [address] [id number] [place] [address]- 3805 18 May, 2012 [facility] [place] [facility] [address] [id number] [place] [address]- 9576 May, [facility] [place] [facility] [address] [id number] [place] [address]- 2576 May, [facility] [place] [facility] [address] [id number] [place] [address]- 4612 Mar, [facility] [place] [facility] [address] [id number] [place] [address]- 7783 Mar, [facility] [place] [facility] [address] [id number] [place] [address]- 3089 Mar, [facility] [place] [facility] [address] [id number] [place] [address]- 3257 Mar, [facility] [place] [facility] [address] [facility] [id number] [place] [address]- 7419 Mar, [facility] [place] [facility] [address] [id number] [place] [address]- 4071 Mar, [facility] [place] [facility] [address] [facility] [id number] [place] [address]- 0556 Mar, [facility] [place] [facility] [address] [facility] [id number] [place] [address]- 0430 Dec, [facility] [place] [facility] [address] [id number] [place] [address]- 8005 Nov, [facility] [place] [facility] [address] [id number] [place] [address] 2541 Sep, [facility] [place] [facility] [address] [id number] [place] [address]- 5016 29 Aug, 2011 [facility] [place] [facility] [address] [facility] [id number] [place] [address] 2546 Aug, [facility] [place] [facility] [address] [facility] [id number] [place] [address]- 8778 Aug, [facility] [place] [facility] [address] [id number] [place] [address]- 8235 Aug, [facility] [place] [facility] [address] [id number] [place] [address]- 8989 Aug, [facility] [place] [facility] [address] [id number] [place] [address]- 5529 Aug, [facility] [place] [facility] [address] [id number] [place] [address]- 9151 Jul, [facility] [address] [id number] [place] [address]- 4642 Jul, [facility] [place] [facility] [address] [id number] [place] [address]- 6568 Jul, [facility] [address] [id number] [place] [address]- 1435 May, [facility] [place] [facility] [address] [id number] [place] [address]- 5728 May, [facility] [place] [facility] [address] [id number] [place] [address]- 1324 Mar, [facility] [place] [facility] [address] [id number] [place] [address]- 0049 Mar, [facility] [place] [facility] [address] [id number] [place] [address]- 2857 Mar, [facility] [place] [facility] [address] [id number] [place] [address]- 7380 Mar, [facility] [place] [facility] [address] [id number] [place] [address]- 2707 Dec, [facility] [place] [facility] [address] [id number] [place] [address]- 2345 14 May, 2010 [facility] [place] [facility] [address] [id number] [place] [address]- 4384 06 May, 2010 [facility] [place] [facility] [address] [id number], [place] [address]- 0883 May, [facility] [address] [facility] [id number], [place] [address]- 6183 14 Mar, 2010 [facility] [address] [facility] [id number], [place] [address]- 1932 14 Mar, 2010 [facility] [address] [facility] [id number], [place] [address]- 7062 Jan, [facility] [address] [facility] [id number][place] 3996 Aug, [facility] [address] [facility] [id number] [place] [address]- 2985 May, [facility] [address] [facility] [id number], [place] [address]- 0424 May, [facility] [address] [id number] 7538 16 May, 2009 [facility] [address] [facility] [id number][place] [address]- 0266 16 May, 2009 [facility] [address] [facility] [id number][place] 4583 May, [facility] [address] [facility] [id number], [place] [address]- 1913 Mar, [facility] [address] [facility] [id number], [place] [address]- 0520 10 Jul, 2006 [facility] [address] [facility] [id number][place] [address] 14 May, 2006 [facility] [address] [facility] [id number] [id number] 11 Mar, 2006 [facility] [address] [facility] [id number] [address] Sep, [facility] [address] [facility] [id number][place] [address] Jul, IMMUNIZATIONS No Known Immunizations SOCIAL HISTORY Never Assessed REASON FOR VISIT TE #31 PLAN OF CARE VITAL SIGNS MEDICATIONS Unknown Medications RESULTS No Results PROCEDURES Procedure Date Ordered Result Body Site Billing Notes on claim Mar 25, 2018 INSTRUCTIONS MEDICATIONS ADMINISTERED No Known Medications [...]
--- OUTSIDE RECORDS SUMMARY | 2018-05-01 20:27 | XMS REPORT ---
Author Author NORMAN KEENAN Organization [facility] Address [address] [place] [address] Care Team Providers Care Copy Supervisor Name Role Phone NORMAN KEENAN Unavailable PROBLEMS Type Condition ICD9-CM Code ATF08-DU Code Onset Dates Condition Status SNOMED Code Problem Irregular menses N92.6 Active 91738711 Problem Generalized anxiety disorder F41.1 Active 26178094 Problem Unspecified mood [affective] disorder F39 Active 333226761 Problem PCOS (polycystic ovarian syndrome) E28.2 Active 56107693 Problem IBS (irritable bowel syndrome) K58.9 Active 03020407 Problem Tobacco abuse Z72.0 Active 10967538 Problem Tobacco abuse counseling Z71.6 Active 755807049 Problem Abnormal uterine bleeding N93.9 Active [id number] Problem Other chronic pain G89.29 Active 49422459 Problem History of drug dependence/abuse F19.21 Active Problem Chronic posttraumatic stress disorder F43.12 Active 774667072 Problem Bipolar II disorder F31.81 Active 51875358 Problem PTSD (post-traumatic stress disorder) F43.10 Active 05698501 ALLERGIES No Information ENCOUNTERS Encounter Location Date Diagnosis [place] [id number] [address] Mar, [facility] [address] [address] Dec, [facility] [address] [address] Dec, [facility] [address] [place] [address] 94220- 0712 Nov, Irregular menses N92.6 ; Abnormal uterine bleeding N93.9 ; History of PCOS Z87.42 and History of unprotected sex Z72.51 [facility] [address] [address] October, [place] [id number] [place] [address] 45670- 6945 October, Low back pain M54.5 ; Dysuria R30.0 ; Other chronic pain G89.29 and Routine gynecological examination Z01.419 [place] [id number] [place] [address] 22421- 4745 October, Dysuria R30.0 and Vaginal discharge N89.8 [place] [id number] [place] [address] 15013- 7298 Sep, Bipolar II disorder F31.81 ; PTSD (post-traumatic stress disorder) F43.10 ; Generalized anxiety disorder F41.1 and History of drug dependence/abuse F19.21 [place] [id number] [place] [address] 89095- 5692 Sep, Unspecified mood [affective] disorder F39 and Post- traumatic stress disorder, unspecified F43.10 [place] [id number] [place] [address] 79750- 2271 Aug, PCOS (polycystic ovarian syndrome) E28.2 ; Recurrent major depressive disorder, in full remission F33.42 ; IBS (irritable bowel syndrome) K58.9 and Tobacco abuse Z72.0 [place] [address] [place] [address] 52011- 4500 Aug, Generalized anxiety disorder F41.1 and Depressive disorder, not elsewhere classified F32.9 [place] [address] [place] [address] 44052- 6310 Aug, PCOS (polycystic ovarian syndrome) E28.2 ; Recurrent major depressive disorder, in full remission F33.42 ; IBS (irritable bowel syndrome) K58.9 ; Tobacco abuse Z72.0 ; Tobacco abuse counseling Z71.6 ; Dysuria R30.0 ; Irregular menses N92.6 ; Vaginal candidiasis B37.3 and Acute cystitis without hematuria N30.00 [place] [address] [address] 01 May, 2017 [facility] [id number] [place] [address] 83544- 8542 18 Mar, 2017 Vaginal discharge N89.8 and Recurrent candidiasis of vagina B37.3 [place] [id number] [place] [address] 47899- 7917 13 Mar, 2017 Nausea and vomiting in adult R11.2 ; Sore throat J02.9 and Diarrhea, unspecified type R19.7 [place] [id number] [place] [address] 39581- 7537 11 Mar, 2017 [place] [id number] [place] [address] 09307- 3706 14 Jan, 2017 Vaginal discharge N89.8 ; Dysuria R30.0 ; High risk sexual behavior Z72.51 ; Major depressive disorder, single episode F32.9 and Vaginal candidiasis B37.3 [place] [id number] [place] [address] 82573- 8227 03 Jan, 2017 Anxiety F41.9 [place] [id number] [place] [address] 12227- 7234 Dec, [place] [id number] [place] [address] 63826- 3457 30 Nov, 2016 Generalized anxiety disorder F41.1 ; Depressive disorder, not elsewhere classified F32.9 ; History of drug dependence/abuse F19.21 and 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 [place] [address] [place] [address] 48471- 5138 19 Nov, 2016 Vaginal discharge N89.8 ; High risk sexual behavior Z72.51 ; Potential exposure to STD Z20.2 and Vaginal candidiasis B37.3 [place] [address] [place] [address] 72778- 7673 16 Nov, 2016 History of drug dependence/abuse F19.21 and Major depressive disorder, single episode F32.9 [place] [id number] [place] [address] 82166- 4744 Nov, Right medial knee pain M25.561 [facility] [address] [place] [id number] [address] October, Nausea and vomiting, intractability of vomiting not specified, unspecified vomiting type R11.2 and Acute pyelonephritis N10 [facility] [address] 58153- 2557 Sep, Major depressive disorder, single episode F32.9 ; Alcohol abuse F10.10 and Tobacco abuse Z72.0 [place] [address] 07446- 5980 Sep, Major depressive disorder, single episode F32.9 ; Alcohol abuse F10.10 and History of drug dependence/abuse F19.21 [place] [address] 76289- 4767 Sep, Major depressive disorder, single episode F32.9 [facility] [id number] [place] [address] 07184 -5306 Aug, Acute cystitis with hematuria N30.01 and Dysuria R30.0 [place] [id number] [place] [address] 14789- 2435 Aug, Dysuria R30.0 ; Vaginal candidiasis B37.3 ; Vaginal discharge N89.8 and High risk sexual behavior Z72.51 [place] [id number] [place] [address] 48397- 0208 Jul, [place] [id number] [place] [address] 42523- 7734 Jul, Major depressive disorder, single episode F32.9 ; History of drug dependence/abuse F19.21 ; Alcohol abuse F10.10 and Tobacco abuse Z72.0 [facility] [address] [place] [address] [id number] May, Dental examination Z01.20 and Dental caries K02.9 [facility] [id number] [place] [address] 34936- 3991 May, Fatigue, unspecified type R53.83 and Cough R05 [facility] [id number] [place] [address] 65504- 5536 May, [facility] [address] 70294- 7106 Mar, [facility] [address] 68213- 0550 Mar, [facility] [address] 16007- 7778 Mar, [facility] [address] 69768- 1712 Mar, [facility] [address] 37881- 6388 Mar, Absence of menstruation N91.2 ; Vagina itching L29.8 ; History of drug dependence/abuse F19.21 ; History of PID Z87.42 and Acute cystitis without hematuria N30.00 [facility] [id number] [place] [address] 25988- 1612 Sep, Routine health maintenance Z00.00 ; Late menses N91.0 ; History of drug dependence/abuse F19.21 ; Alcohol abuse F10.10 ; Tobacco abuse Z72.0 ; Tobacco abuse counseling Z71.6 and Back pain M54.9 [facility] [id number] [place] [address] [id number] Aug, Dental examination Z01.20 and Dental caries K02.9 [facility] [address] 21993- 7690 Jul, [facility] [address] 29729- 7004 Jul, Surveillance of contraceptive injection Z30.42 [place] [address] [place] [address]- 7134 13 Jul, 2015 Routine screening for STI (sexually transmitted infection) Z11.3 ; Drug use F19.90 ; Counseling on substance use and abuse Z71.89 ; Unprotected sexual intercourse Z72.51 ; Encounter for counseling regarding contraception Z30.9 ; Vaginal discharge N89.8 and Skin lesions L98.9 [facility] [address] 52978- 4415 30 May, 2015 [facility] [address] 31807- 1663 May, Yeast infection B37.9 [place] [address] 63744- 8699 May, Excessive and frequent menstruation with irregular cycle N92.1 ; Other fatigue R53.83 ; General counseling and advice for contraceptive management Z30.09 ; Evaluation for contraceptive injection Z30.013 ; Cough R05 ; Vaginal irritation N89.8 and Dizziness R42 [facility] [address] 36310- 6150 Sep, [facility] [address] 69563- 2914 Sep, [facility] [id number] [place] [address] 98495- 7045 Aug, [facility] [id number] [place] [address] 49275- 8019 Aug, [facility] [id number] [place] [address] 72821- 6969 Aug, [facility] [address] 79697- 4523 Aug, [facility] [address] 07704- 5687 Aug, [facility] [address] 60880- 4663 Aug, [facility] [place] [facility] [address] [id number] [place] [address]- 5587 Aug, 2014 [facility] [place] [facility] [address] [id number] [place] [address]- 3766 Aug, 2014 [facility] [place] [facility] [address] [id number] [place] [address]- 6711 Aug, 2014 [facility] [place] [facility] [address] [id number] [place] [address]- 3171 Aug, 2014 [facility] [place] [facility] [address] [id number] [place] [address]- 5178 Aug, [facility] [place] [facility] [address] [id number] [place] [address]- 3272 Aug, [facility] [place] [facility] [address] [facility] [id number] [place] [address]- 0690 Jul, [facility] [place] [facility] [address] [facility] [id number] [place] [address]- 4192 Jul, [facility] [place] [facility] [address] [id number] [place] [address]- 8025 May, [facility] [place] [facility] [address] [facility] [id number] [place] [address]- 2950 May, [facility] [place] [facility] [address] [facility] [id number] [place] [address]- 1064 May, [facility] [place] [facility] [address] [id number] [address]- 7400 May, [facility] [place] [facility] [address] [id number] [place] [address]- 7585 Mar, [facility] [place] [facility] [address] [id number] [place] [address]- 3074 Mar, [facility] [place] [facility] [address] [id number] [place] [address]- 8779 Mar, [facility] [place] [facility] [address] [id number] [address]- 2666 Mar, [facility] [place] [facility] [address] [id number] [place] [address]- 5988 Mar, [facility] [place] [facility] [address] [id number] [place] [address]- 4085 Mar, [facility] [place] [facility] [address] [id number] [place] [address]- 4878 Mar, [facility] [place] [facility] [address] [id number] [place] [address]- 3150 Mar, [facility] [place] [facility] [address] [id number] [place] [address]- 5014 Mar, [facility] [place] [facility] [address] [id number] [place] [address]- 4418 Mar, [facility] [place] [facility] [address] [id number] [place] [address]- 5615 Jan, [facility] [place] [facility] [address] [id number] [place] [address]- 2158 Jan, [facility] [place] [facility] [address] [id number] [place] [address]- 6388 Nov, [facility] [place] [facility] [address] [id number] [place] [address]- 4946 Nov, [facility] [place] [facility] [address] [id number] [place] [address]- 4961 October, [facility] [place] [facility] [address] [id number] [place] [address]- 2727 October, [facility] [place] [facility] [address] [id number] [place] [address]- 5835 October, [facility] [place] [facility] [address] [id number] [place] 6257 October, [facility] [place] [facility] [address] [id number] [place] 5325 October, [facility] [place] [facility] [address] [id number] [place] [address]- 5721 October, [facility] [place] [facility] [address] [id number] [place] [address]- 8450 October, [facility] [place] [facility] [address] [id number] [place] [address]- 6160 October, [facility] [place] [facility] [address] [id number] [place] [address]- 1172 Sep, [facility] [place] [facility] [address] [id number] [place] [address]- 4539 Sep, [facility] [place] [facility] [address] [id number] [place] [address]- 6590 Aug, [facility] [place] [facility] [address] [facility] [id number] [place] [address]- 4527 Aug, [facility] [place] [facility] [address] [id number] [place] [address]- 2380 Aug, [facility] [place] [facility] [address] [id number] [place] [address]- 3483 Aug, [facility] [place] [facility] [address] [facility] [id number] [place] [address]- 9197 May, [facility] [place] [facility] [address] [id number] [place] [address]- 9229 May, [facility] [place] [facility] [address] [id number] [place] [address]- 0206 May, [facility] [place] [facility] [address] [id number] [place] [address]- 3788 May, [facility] [place] [facility] [address] [id number] [place] [address]- 2959 May, [facility] [place] [facility] [address] [id number] [place] [address]- 8178 May, [facility] [place] [facility] [address] [id number] [place] [address]- 3104 May, [facility] [address] [id number] [place] [address]- 9687 May, [facility] [place] [facility] [address] [id number] [place] [address]- 2546 Mar, [facility] [place] [facility] [address] [id number] [place] [address]- 2546 Mar, [facility] [place] [facility] [address] [id number] [place] [address]- 2546 Mar, [facility] [place] [facility] [address] [id number] [place] [address] 2549 Jan, [facility] [place] [facility] [address] [id number] [place] [address] 2546 Jan, [facility] [place] [facility] [address] [id number] [place] [address]- 7323 Dec, [facility] [place] [facility] [address] [id number] [place] [address]- 0033 Dec, [facility] [place] [facility] [address] [id number] [place] [address]- 5363 Dec, [facility] [place] [facility] [address] [id number] [place] [address]- 0181 Sep, [facility] [place] [facility] [address] [id number] [address] 2542 28 Aug, 2012 [facility] [place] [facility] [address] [id number] [address] 254 21 Aug, 2012 [facility] [place] [facility] [address] [id number] [place] [address]- 2546 18 Aug, 2012 [facility] [place] [facility] [address] [id number] [place] [address] 2546 15 Aug, 2012 [facility] [place] [facility] [address] [id number] [place] [address]- 254 14 Aug, 2012 [facility] [place] [facility] [address] [id number] [place] [address]- 6814 Aug, [facility] [address] [id number] [place] [address]- 9917 16 Jul, 2012 [facility] [place] [facility] [address] [id number] [place] [address]- 4698 15 Jul, 2012 [facility] [address] [id number] [place] [address]- 5502 Jul, [facility] [place] [facility] [address] [id number] [place] [address]- 2595 Jul, [facility] [address] [id number] [place] [address]- 5532 Jul, [facility] [address] [id number] [place] [address]- 2739 Jul, [facility] [address] [id number] [place] [address]- 5482 May, [facility] [address] [id number] [place] [address]- 7094 May, [facility] [place] [facility] [address] [id number] [place] [address]- 7933 May, [facility] [address] [facility] [id number] [place] [address]- 8040 18 May, 2012 [facility] [place] [facility] [address] [id number] [place] [address]- 9299 May, [facility] [place] [facility] [address] [id number] [place] [address]- 3859 15 May, 2012 [facility] [place] [facility] [address] [id number] [place] [address]- 3626 Mar, [facility] [place] [facility] [address] [id number] [place] 7722 Mar, [facility] [place] [facility] [address] [id number] [place] [address]- 7564 Mar, [facility] [place] [facility] [address] [id number] [place] [address]- 1851 Mar, [facility] [place] [facility] [address] [id number] [place] [address]- 9726 Mar, [facility] [place] [facility] [address] [id number] [place] [address]- 2546 Mar, [facility] [place] [facility] [address] [id number] [place] [address] 2546 Mar, [facility] [address] [id number] [place] [address]- 0988 Dec, [facility] [place] [facility] [address] [id number] [place] [address]- 2056 Nov, [facility] [address] [id number] [place] [address]- 1336 Sep, [facility] [address] [id number] [place] [address]- 7635 Aug, [facility] [place] [facility] [address] [id number] [place] [address]- 2695 Aug, [facility] [place] [facility] [address] [id number] [place] [address]- 7471 Aug, [facility] [place] [facility] [address] [id number] [place] [address]- 2690 Aug, [facility] [place] [facility] [address] [id number] [place] [address] 2546 Aug, [facility] [place] [facility] [address] [id number] [place] [address] 2546 Aug, [facility] [place] [facility] [address] [id number] [place] [address]- 1276 Jul, [facility] [place] [facility] [address] [id number] [place] [address] 2546 Jul, [facility] [place] [facility] [address] [id number] [place] [address]- 7632 10 Jul, 2011 [facility] [place] [facility] [address] [id number] [place] [address]- 2995 12 May, 2011 [facility] [place] [facility] [address] [id number] [place] 7250 May, [facility] [place] [facility] [address] [id number] [place] [address]- 9845 Mar, [facility] [place] [facility] [address] [id number] [place] [address]- 4725 24 Mar, 2011 [facility] [place] [facility] [address] [id number] [place] [address]- 8613 Mar, [facility] [place] [facility] [address] [id number] [place] [address]- 8319 10 Mar, 2011 [facility] [place] [facility] [address] [id number] [place] [address]- 9926 Dec, [facility] [place] [facility] [address] [id number] [place] [address]- 8686 14 May, 2010 [facility] [place] [facility] [address] [id number] [place] [address]- 5393 May, [facility] [place] [facility] [address] [id number] [place] [address]- 2263 May, [facility] [place] [facility] [address] [id number] [place] [address]- 7593 14 Mar, 2010 [facility] [place] [facility] [address] [id number] [place] [address]- 6921 14 Mar, 2010 [facility] [place] [facility] [address] [id number] [place] 2138 Jan, [facility] [place] [facility] [address] [id number] [place] [address]- 5340 18 Aug, 2009 [facility] [place] [facility] [address] [id number] [place] 7894 31 May, 2009 [facility] [place] [facility] [address] [id number] [address]- 1212 May, [facility] [id number] [address]- 8947 May, [facility] [address] [address]- 6403 May, [facility] [id number] [address]- 3424 May, [facility] [address] [address]- 9065 Mar, [facility] [address] [address] Jul, [facility] [id number] [address] 14 May, 2006 [facility] [id number] [address] Mar, [facility] [id number] [address] Sep, [facility] [id number] [address] Jul, IMMUNIZATIONS No Known Immunizations SOCIAL HISTORY Never Assessed REASON FOR VISIT State tx PLAN OF CARE VITAL SIGNS MEDICATIONS Unknown [...]
--- OUTSIDE RECORDS SUMMARY | 2018-05-01 20:27 | XMS REPORT ---
Author Author NORMAN KEENAN Organization [facility] Address [address] [place] [address] Care Team Providers Care Rn [facility]om[facility] Name Role Phone NORMAN KEENAN Unavailable PROBLEMS Type Condition ICD9-CM Code [id number] Code Onset Dates Condition Status SNOMED Code Problem Irregular menses N92.6 Active 75934996 Problem Generalized anxiety disorder F41.1 Active 97022413 Problem Unspecified mood [affective] disorder F39 Active 711958504 Problem PCOS (polycystic ovarian syndrome) E28.2 Active 86367934 Problem IBS (irritable bowel syndrome) K58.9 Active 31931867 Problem Tobacco abuse Z72.0 Active 47271471 Problem Tobacco abuse counseling Z71.6 Active 448290620 Problem Abnormal uterine bleeding N93.9 Active [id number] Problem Other chronic pain G89.29 Active 72882633 Problem History of drug dependence/abuse F19.21 Active Problem Chronic posttraumatic stress disorder F43.12 Active 560710176 Problem Bipolar II disorder F31.81 Active 66849604 Problem PTSD (post-traumatic stress disorder) F43.10 Active 41200015 ALLERGIES No Information ENCOUNTERS Encounter Location Date Diagnosis [place] [address], [place] [address] Mar, [facility] [address], [place] [address] Dec, [facility] [address], [place] [address] Dec, [facility] [id number] [place] [address] 65683- 1809 Nov, Irregular menses N92.6 ; Abnormal uterine bleeding N93.9 ; History of PCOS Z87.42 and History of unprotected sex Z72.51 [facility] [id number], [place] [address] October, [place] [id number] [place] [address] 95154- 8408 October, Low back pain M54.5 ; Dysuria R30.0 ; Other chronic pain G89.29 and Routine gynecological examination Z01.419 [place] [id number] [place] [address] 51453- 0240 October, Dysuria R30.0 and Vaginal discharge N89.8 [place] [id number] [place] [address] 61641- 2127 Sep, Bipolar II disorder F31.81 ; PTSD (post-traumatic stress disorder) F43.10 ; Generalized anxiety disorder F41.1 and History of drug dependence/abuse F19.21 [place] [id number] [place] [address] 47092- 9443 Sep, Unspecified mood [affective] disorder F39 and Post- traumatic stress disorder, unspecified F43.10 [place] [id number] [place] [address] 25704- 4792 Aug, PCOS (polycystic ovarian syndrome) E28.2 ; Recurrent major depressive disorder, in full remission F33.42 ; IBS (irritable bowel syndrome) K58.9 and Tobacco abuse Z72.0 [place] [id number] [place] [address] 33068- 2017 Aug, Generalized anxiety disorder F41.1 and Depressive disorder, not elsewhere classified F32.9 [place] [address] [place] [address] 65269- 6235 Aug, PCOS (polycystic ovarian syndrome) E28.2 ; Recurrent major depressive disorder, in full remission F33.42 ; IBS (irritable bowel syndrome) K58.9 ; Tobacco abuse Z72.0 ; Tobacco abuse counseling Z71.6 ; Dysuria R30.0 ; Irregular menses N92.6 ; Vaginal candidiasis B37.3 and Acute cystitis without hematuria N30.00 [place] [id number] [address] 01 May, 2017 [facility] [id number] [place] [address] 79047- 9463 18 Mar, 2017 Vaginal discharge N89.8 and Recurrent candidiasis of vagina B37.3 [place] [id number] [place] [address] 41180- 1816 13 Mar, 2017 Nausea and vomiting in adult R11.2 ; Sore throat J02.9 and Diarrhea, unspecified type R19.7 [place] [id number] [place] [address] 89689- 7879 11 Mar, 2017 [place] [id number] [place] [address] 38231- 4485 14 Jan, 2017 Vaginal discharge N89.8 ; Dysuria R30.0 ; High risk sexual behavior Z72.51 ; Major depressive disorder, single episode F32.9 and Vaginal candidiasis B37.3 [place] [id number] [place] [address] 54465- 9780 03 Jan, 2017 Anxiety F41.9 [place] [id number] [place] [address] 16193- 8489 Dec, [place] [id number] [place] [address] 52892- 5322 30 Nov, 2016 Generalized anxiety disorder F41.1 ; Depressive disorder, not elsewhere classified F32.9 ; History of drug dependence/abuse F19.21 and 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 [place] [address] [place] [address] 85267- 4651 19 Nov, 2016 Vaginal discharge N89.8 ; High risk sexual behavior Z72.51 ; Potential exposure to STD Z20.2 and Vaginal candidiasis B37.3 [place] [address] [place] [address] 96926- 4058 16 Nov, 2016 History of drug dependence/abuse F19.21 and Major depressive disorder, single episode F32.9 [place] [id number] [place] [address] 98222- 8306 Nov, Right medial knee pain M25.561 [facility] [id number] [address] October, Nausea and vomiting, intractability of vomiting not specified, unspecified vomiting type R11.2 and Acute pyelonephritis N10 [facility] [address] [address]656- 9918 Sep, Major depressive disorder, single episode F32.9 ; Alcohol abuse F10.10 and Tobacco abuse Z72.0 [place] [address] 17651- 9391 Sep, Major depressive disorder, single episode F32.9 ; Alcohol abuse F10.10 and History of drug dependence/abuse F19.21 [place] [address] 39735- 5646 Sep, Major depressive disorder, single episode F32.9 [facility] [id number] [place] [address] 64078 -1020 Aug, Acute cystitis with hematuria N30.01 and Dysuria R30.0 [place] [id number] [place] [address] 29602- 2858 Aug, Dysuria R30.0 ; Vaginal candidiasis B37.3 ; Vaginal discharge N89.8 and High risk sexual behavior Z72.51 [place] [id number] [place] [address] 11108- 6031 Jul, [place] [id number] [place] [address] 81834- 1472 Jul, Major depressive disorder, single episode F32.9 ; History of drug dependence/abuse F19.21 ; Alcohol abuse F10.10 and Tobacco abuse Z72.0 [facility] [address] [place] [address] [id number] May, Dental examination Z01.20 and Dental caries K02.9 [facility] [id number] [place] [address] 59546- 3621 May, Fatigue, unspecified type R53.83 and Cough R05 [facility] [id number] [place] [address] 94424- 0815 May, [facility] [address] 17463- 8354 Mar, [facility] [address] 09448- 6466 Mar, [facility] [address] 85478- 5947 Mar, [facility] [address] 08362- 9401 Mar, [facility] [address] 91205- 3431 Mar, Absence of menstruation N91.2 ; Vagina itching L29.8 ; History of drug dependence/abuse F19.21 ; History of PID Z87.42 and Acute cystitis without hematuria N30.00 [facility] [id number] [place] [address] 70039- 2560 Sep, Routine health maintenance Z00.00 ; Late menses N91.0 ; History of drug dependence/abuse F19.21 ; Alcohol abuse F10.10 ; Tobacco abuse Z72.0 ; Tobacco abuse counseling Z71.6 [address] Back pain M54.9 [facility] [id number] [place] [address] [id number] Aug, Dental examination Z01.20 and Dental caries K02.9 [facility] [address] 28984- 7970 Jul, [facility] [address] 52529- 5788 Jul, Surveillance of contraceptive injection Z30.42 [place] [address] [place] [address]- 6337 13 Jul, 2015 Routine screening for STI (sexually transmitted infection) Z11.3 ; Drug use F19.90 ; Counseling on substance use and abuse Z71.89 ; Unprotected sexual intercourse Z72.51 ; Encounter for counseling regarding contraception Z30.9 ; Vaginal discharge N89.8 and Skin lesions L98.9 [facility] [address] 10333- 7615 30 May, 2015 [facility] [address] 12570- 3102 May, Yeast infection B37.9 [place] [address] 56277- 0274 May, Excessive and frequent menstruation with irregular cycle N92.1 ; Other fatigue R53.83 ; General counseling and advice for contraceptive management Z30.09 ; Evaluation for contraceptive injection Z30.013 ; Cough R05 ; Vaginal irritation N89.8 and Dizziness R42 [facility] [address] 47737- 6978 Sep, [facility] [address] 52912- 4807 Sep, [facility] [id number] [place] [address] 55019- 2578 Aug, [facility] [id number] [place] [address] 19629- 9450 Aug, [facility] [id number] [place] [address] 91580- 2519 Aug, [facility] [address] 74832- 8217 Aug, [facility] [address] 09456- 5569 Aug, [facility] [address] 83738- 8190 Aug, [facility] [place] [facility] [address] [id number] [place] [address]- 2530 Aug, 2014 [facility] [place] [facility] [address] [id number] [place] [address]- 4871 Aug, 2014 [facility] [place] [facility] [address] [id number] [place] [address]- 5926 Aug, 2014 [facility] [place] [facility] [address] [id number] [place] [address]- 2263 Aug, 2014 [facility] [place] [facility] [address] [id number] [place] [address]- 0427 Aug, [facility] [place] [facility] [address] [id number] [place] [address]- 0748 Aug, [facility] [place] [facility] [address] [facility] [id number] [place] [address]- 9290 Jul, [facility] [place] [facility] [address] [facility] [id number] [place] [address]- 3421 Jul, [facility] [place] [facility] [address] [id number] [place] [address]- 5551 May, [facility] [place] [facility] [address] [facility] [id number] [place] [address]- 4176 May, [facility] [place] [facility] [address] [facility] [id number] [place] [address]- 2959 May, [facility] [place] [facility] [address] [id number] [address]- 7273 May, [facility] [place] [facility] [address] [id number] [place] [address]- 4386 Mar, [facility] [place] [facility] [address] [id number] [place] [address]- 8354 Mar, [facility] [place] [facility] [address] [id number] [place] [address]- 2857 Mar, [facility] [place] [facility] [address] [id number], [place] [address]- 0925 Mar, [facility] [place] [facility] [address] [id number] [place] [address]- 7700 Mar, [facility] [place] [facility] [address] [id number] [place] [address]- 9162 Mar, [facility] [place] [facility] [address] [id number] [place] [address]- 1495 Mar, [facility] [place] [facility] [address] [id number] [place] [address]- 6048 Mar, [facility] [place] [facility] [address] [id number] [place] [address]- 9214 Mar, [facility] [place] [facility] [address] [id number] [place] [address]- 8000 Mar, [facility] [place] [facility] [address] [id number] [place] [address]- 7017 Jan, [facility] [place] [facility] [address] [id number] [place] [address]- 3370 Jan, [facility] [place] [facility] [address] [id number] [place] [address]- 6693 Nov, [facility] [place] [facility] [address] [id number] [place] [address]- 2570 Nov, [facility] [place] [facility] [address] [id number] [place] [address]- 4204 October, [facility] [place] [facility] [address] [id number] [place] [address]- 7311 October, [facility] [place] [facility] [address] [id number] [place] [address]- 0415 October, [facility] [place] [facility] [address] [id number] [place] 9948 October, [facility] [place] [facility] [address] [id number] [place] 5035 October, [facility] [place] [facility] [address] [id number] [place] [address]- 2481 October, [facility] [place] [facility] [address] [id number] [place] [address]- 4789 October, [facility] [place] [facility] [address] [id number] [place] [address]- 9518 October, [facility] [place] [facility] [address] [id number] [place] [address]- 6705 Sep, [facility] [place] [facility] [address] [id number] [place] [address]- 2607 Sep, [facility] [place] [facility] [address] [id number] [place] [address]- 3958 Aug, [facility] [place] [facility] [address] [facility] [id number] [place] [address]- 2409 Aug, [facility] [place] [facility] [address] [id number] [place] [address]- 1351 Aug, [facility] [place] [facility] [address] [id number] [place] [address]- 2853 Aug, [facility] [place] [facility] [address] [facility] [id number] [place] [address]- 4086 May, [facility] [place] [facility] [address] [id number] [place] [address]- 9674 May, [facility] [place] [facility] [address] [id number] [place] [address]- 4220 May, [facility] [place] [facility] [address] [id number] [place] [address]- 7373 May, [facility] [place] [facility] [address] [id number] [place] [address]- 7849 May, [facility] [place] [facility] [address] [id number] [place] [address]- 1375 May, [facility] [place] [facility] [address] [id number] [place] [address]- 1475 May, [facility] [address] [id number] [place] [address]- 0335 May, [facility] [place] [facility] [address] [id number] [place] [address]- 2546 Mar, [facility] [place] [facility] [address] [id number] [place] [address]- 2546 Mar, [facility] [place] [facility] [address] [id number] [place] [address]- 2546 Mar, [facility] [place] [facility] [address] [id number] [place] [address] 2547 Jan, [facility] [place] [facility] [address] [id number] [place] [address] 2546 Jan, [facility] [place] [facility] [address] [id number] [place] [address]- 5444 Dec, [facility] [place] [facility] [address] [id number] [place] [address]- 8392 Dec, [facility] [place] [facility] [address] [id number] [place] [address]- 4970 Dec, [facility] [place] [facility] [address] [id number] [place] [address]- 2390 Sep, [facility] [place] [facility] [address] [id number], [place] [address] 2545 28 Aug, 2012 [facility] [place] [facility] [address] [id number], [place] [address] 2541 21 Aug, 2012 [facility] [place] [facility] [address] [id number] [place] [address]- 2546 18 Aug, 2012 [facility] [place] [facility] [address] [id number], [place] [address] 2546 15 Aug, 2012 [facility] [place] [facility] [address] [id number] [place] [address]- 2542 14 Aug, 2012 [facility] [place] [facility] [address] [id number] [place] [address]- 1840 Aug, [facility] [address] [id number] [place] [address]- 0081 16 Jul, 2012 [facility] [place] [facility] [address] [id number] [place] [address]- 0035 15 Jul, 2012 [facility] [address] [id number] [place] [address]- 8762 Jul, [facility] [place] [facility] [address] [id number] [place] [address]- 3987 Jul, [facility] [address] [id number] [place] [address]- 3344 Jul, [facility] [address] [id number] [place] [address]- 7800 Jul, [facility] [address] [id number] [place] [address]- 7101 May, [facility] [address] [id number] [place] [address]- 5063 May, [facility] [place] [facility] [address] [id number] [place] [address]- 1861 May, [facility] [address] [facility] [id number] [place] [address]- 9294 18 May, 2012 [facility] [place] [facility] [address] [id number] [place] [address]- 4859 May, [facility] [place] [facility] [address] [id number] [place] [address]- 1907 15 May, 2012 [facility] [place] [facility] [address] [id number] [place] [address]- 9968 Mar, [facility] [place] [facility] [address] [id number] [place] 4106 Mar, [facility] [place] [facility] [address] [id number] [place] [address]- 3189 Mar, [facility] [place] [facility] [address] [id number] [place] [address]- 6937 Mar, [facility] [place] [facility] [address] [id number] [place] [address]- 2116 Mar, [facility] [place] [facility] [address] [id number] [place] [address]- 2546 Mar, [facility] [place] [facility] [address] [id number] [place] [address] 2546 Mar, [facility] [address] [id number] [place] [address]- 3623 Dec, [facility] [place] [facility] [address] [id number] [place] [address]- 9166 Nov, [facility] [address] [id number] [place] [address]- 8536 Sep, [facility] [address] [id number] [place] [address]- 1154 Aug, [facility] [place] [facility] [address] [id number] [place] [address]- 3166 Aug, [facility] [place] [facility] [address] [id number] [place] [address]- 7463 Aug, [facility] [place] [facility] [address] [id number] [place] [address]- 3323 Aug, [facility] [place] [facility] [address] [id number] [place] [address] 2546 Aug, [facility] [place] [facility] [address] [id number] [place] [address] 2546 Aug, [facility] [place] [facility] [address] [id number] [place] [address]- 1666 Jul, [facility] [place] [facility] [address] [id number] [place] [address] 2546 Jul, [facility] [place] [facility] [address] [id number] [place] [address]- 5267 10 Jul, 2011 [facility] [place] [facility] [address] [id number] [place] [address]- 1514 12 May, 2011 [facility] [place] [facility] [address] [id number] [place] 4887 May, [facility] [place] [facility] [address] [id number] [place] [address]- 2788 Mar, [facility] [place] [facility] [address] [id number] [place] [address]- 5726 24 Mar, 2011 [facility] [place] [facility] [address] [id number] [place] [address]- 6497 Mar, [facility] [place] [facility] [address] [id number] [place] [address]- 5097 10 Mar, 2011 [facility] [place] [facility] [address] [id number] [place] [address]- 8215 Dec, [facility] [place] [facility] [address] [id number] [place] [address]- 8022 14 May, 2010 [facility] [place] [facility] [address] [id number] [place] [address]- 6748 May, [facility] [place] [facility] [address] [id number] [place] [address]- 4692 May, [facility] [place] [facility] [address] [id number] [place] [address]- 5467 14 Mar, 2010 [facility] [place] [facility] [address] [id number] [place] [address]- 1337 14 Mar, 2010 [facility] [place] [facility] [address] [id number] [place] 6561 Jan, [facility] [place] [facility] [address] [id number] [place] [address]- 8493 18 Aug, 2009 [facility] [place] [facility] [address] [id number] [place] 7530 31 May, 2009 [facility] [place] [facility] [address] [id number], [place] [address]- 0411 May, [facility] [id number] [address]- 1702 May, [facility] [id number] [address] May, [facility] [address] [id number], [place] [address] May, [facility] [id number], [place] [address] Mar, [facility] [id number] [address] Jul, [facility] [id number], [place] [address] 14 May, 2006 [facility] [id number] [address] Mar, [facility] [address] [id number], [place] [address] Sep, [facility] [address] [id number] [address] Jul, IMMUNIZATIONS No Known Immunizations SOCIAL HISTORY Never Assessed REASON FOR VISIT STD treatment (STATE)----[place] PLAN OF CARE VITAL SIGNS MEDICATIONS Unknown [...]
--- OUTSIDE RECORDS SUMMARY | 2018-05-01 20:28 | XMS REPORT ---
Author Author MARY KAY COLEMAN [facility] Address [address] [place] [address] Care Team Providers Care Turbine Room Attendant Name Role Phone MARY KAY COLEMAN Unavailable PROBLEMS Type Condition ICD9-CM Code [id number] Code Onset Dates Condition Status SNOMED Code Problem Irregular menses N92.6 Active 11872449 Problem Generalized anxiety disorder F41.1 Active 27967286 Problem Unspecified mood [affective] disorder F39 Active 179451091 Problem PCOS (polycystic ovarian syndrome) E28.2 Active 42046800 Problem IBS (irritable bowel syndrome) K58.9 Active 04184706 Problem Tobacco abuse Z72.0 Active 34385358 Problem Tobacco abuse counseling Z71.6 Active 430678088 Problem Abnormal uterine bleeding N93.9 Active [id number] Problem Other chronic pain G89.29 Active 17322845 Problem History of drug dependence/abuse F19.21 Active Problem Chronic posttraumatic stress disorder F43.12 Active 716133558 Problem Bipolar II disorder F31.81 Active 24151689 Problem PTSD (post-traumatic stress disorder) F43.10 Active 36027121 ALLERGIES No Known Allergies ENCOUNTERS Encounter Location Date Diagnosis [facility] [id number], [place] [address] Dec, [facility] [address], [place] [address] Dec, [facility] [address] [id number], [place] [address] Nov, Irregular menses N92.6 ; Abnormal uterine bleeding N93.9 ; History of PCOS Z87.42 and History of unprotected sex Z72.51 [facility] [address] [id number], [place] [address] October, [facility] [id number] [place] [address] 31232- 5853 October, Low back pain M54.5 ; Dysuria R30.0 ; Other chronic pain G89.29 and Routine gynecological examination Z01.419 [address] [id number] [place] [address] 09691- 3046 October, Dysuria R30.0 and Vaginal discharge N89.8 [place] [address] [address]- 5031 Sep, Bipolar II disorder F31.81 ; PTSD (post-traumatic stress disorder) F43.10 ; Generalized anxiety disorder F41.1 and History of drug dependence/abuse F19.21 [place] [address] [address] Sep, Unspecified mood [affective] disorder F39 and Post- traumatic stress disorder, unspecified F43.10 [place] [address] [address]- 4383 Aug, PCOS (polycystic ovarian syndrome) E28.2 ; Recurrent major depressive disorder, in full remission F33.42 ; IBS (irritable bowel syndrome) K58.9 and Tobacco abuse Z72.0 [place] [address] [address]89- 0659 Aug, Generalized anxiety disorder F41.1 and Depressive disorder, not elsewhere classified F32.9 [place] [id number] [place] [address] 94765- 1705 Aug, PCOS (polycystic ovarian syndrome) E28.2 ; Recurrent major depressive disorder, in full remission F33.42 ; IBS (irritable bowel syndrome) K58.9 ; Tobacco abuse Z72.0 ; Tobacco abuse counseling Z71.6 ; Dysuria R30.0 ; Irregular menses N92.6 ; Vaginal candidiasis B37.3 and Acute cystitis without hematuria N30.00 [place] [id number] [place] [address] 07607- 6856 May, [place] [id number] [place] [address] 56625- 2183 18 Mar, 2017 Vaginal discharge N89.8 and Recurrent candidiasis of vagina B37.3 [place] [id number] [place] [address] 94133- 2421 13 Mar, 2017 Nausea and vomiting in adult R11.2 ; Sore throat J02.9 and Diarrhea, unspecified type R19.7 [place] [address] 97917- 9074 11 Mar, 2017 [place] [address] 05634- 9913 14 Jan, 2017 Vaginal discharge N89.8 ; Dysuria R30.0 ; High risk sexual behavior Z72.51 ; Major depressive disorder, single episode F32.9 and Vaginal candidiasis B37.3 [place] [id number] [place] [address] 56074- 5777 03 Jan, 2017 Anxiety F41.9 [place] [address] 40948- 8607 Dec, [place] [address] 16475- 9942 Nov, Generalized anxiety disorder F41.1 ; Depressive disorder, not elsewhere classified F32.9 ; History of drug dependence/abuse F19.21 and 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 [place] [id number] [place] [address] 05241- 4545 19 Nov, 2016 Vaginal discharge N89.8 ; High risk sexual behavior Z72.51 ; Potential exposure to STD Z20.2 and Vaginal candidiasis B37.3 [place] [id number] [place] [address] 55510- 7549 16 Nov, 2016 History of drug dependence/abuse F19.21 and Major depressive disorder, single episode F32.9 [place] [id number] [place] [address] 15100- 1461 02 Nov, 2016 Right medial knee pain M25.561 [facility] [id number] [place] [address] 59314- 9024 October, Nausea and vomiting, intractability of vomiting not specified, unspecified vomiting type R11.2 and Acute pyelonephritis N10 [facility] [id number] [place] [address] 97408- 4027 Sep, Major depressive disorder, single episode F32.9 ; Alcohol abuse F10.10 and Tobacco abuse Z72.0 [address] [address] 27458- 9227 Sep, Major depressive disorder, single episode F32.9 ; Alcohol abuse F10.10 and History of drug dependence/abuse F19.21 [place] [id number] [place] [address] 41817- 3152 Sep, Major depressive disorder, single episode F32.9 [facility] [address] [address] -[address]679 Aug, Acute cystitis with hematuria N30.01 and Dysuria R30.0 [address] [place] [address] 35294- 7137 Aug, Dysuria R30.0 ; Vaginal candidiasis B37.3 ; Vaginal discharge N89.8 and High risk sexual behavior Z72.51 [place] [id number] [place] [address] 95977- 1019 Jul, [place] [address] 30864- 7609 Jul, Major depressive disorder, single episode F32.9 ; History of drug dependence/abuse F19.21 ; Alcohol abuse F10.10 and Tobacco abuse Z72.0 [facility] [id number] [place] [address] [id number] May, Dental examination Z01.20 and Dental caries K02.9 [place] [address] 59270- 8174 May, Fatigue, unspecified type R53.83 and Cough R05 [facility] [id number] [place] [address] 19008- 8694 May, [facility] [id number] [place] [address] 31285- 6412 Mar, [facility] [id number] [place] [address] 45865- 3076 Mar, [facility] [address] 62514- 7152 Mar, [facility] [id number] [place] [address] 57913- 8913 Mar, [facility] [id number] [place] [address] 36638- 0466 Mar, Absence of menstruation N91.2 ; Vagina itching L29.8 ; History of drug dependence/abuse F19.21 ; History of PID Z87.42 and Acute cystitis without hematuria N30.00 [facility] [id number] [place] [address] 12302- 4132 Sep, Routine health maintenance Z00.00 ; Late menses N91.0 ; History of drug dependence/abuse F19.21 ; Alcohol abuse F10.10 ; Tobacco abuse Z72.0 ; Tobacco abuse counseling Z71.6 and Back pain M54.9 [facility] [id number] [place] [address] [id number] Aug, Dental examination Z01.20 and Dental caries K02.9 [facility] [id number] [place] [address] 85081- 2547 Jul, [facility] [id number] [place] [address] 88305- 6445 14 Jul, 2015 Surveillance of contraceptive injection Z30.42 [facility] [id number] [place] [address] 17804- 2270 13 Jul, 2015 Routine screening for STI (sexually transmitted infection) Z11.3 ; Drug use F19.90 ; Counseling on substance use and abuse Z71.89 ; Unprotected sexual intercourse Z72.51 ; Encounter for counseling regarding contraception Z30.9 ; Vaginal discharge N89.8 and Skin lesions L98.9 [facility] [id number] [place] [address] 31082- 5984 30 May, 2015 [facility] [id number] [place] [address] 30226- 3779 May, Yeast infection B37.9 [place] [address] 71265- 2082 19 May, 2015 Excessive and frequent menstruation with irregular cycle N92.1 ; Other fatigue R53.83 ; General counseling and advice for contraceptive management Z30.09 ; Evaluation for contraceptive injection Z30.013 ; Cough R05 ; Vaginal irritation N89.8 and Dizziness R42 [place] [address] 11898- 0143 14 Sep, 2014 [facility] [address] 40935- 4228 Sep, [facility] [address] 55946- 8243 Aug, [facility] [id number] [place] [address] 90065- 5654 Aug, [facility] [id number] [place] [address] 30963- 8191 Aug, [facility] [id number] [place] [address] 37213- 5532 Aug, [facility] [address] 58368- 6742 Aug, [facility] [address] 45894- 3278 Aug, [facility] [id number] [place] [address] 03836- 5577 Aug, [facility] [place] [facility] [address] [id number] [place] [address]- 5242 Aug, 2014 [facility] [place] [facility] [address] [id number] [place] [address]- 0630 Aug, 2014 [facility] [place] [facility] [address] [id number] [place] [address]- 7142 Aug, 2014 [facility] [place] [facility] [address] [id number] [place] [address]- 0614 Aug, [facility] [place] [facility] [address] [id number] [place] [address]- 1476 Aug, [facility] [place] [facility] [address] [id number] [place] [address]- 4884 Jul, [facility] [place] [facility] [address] [id number] [place] [address]- 0565 Jul, [facility] [place] [facility] [address] [id number] [place] [address]- 0293 May, [facility] [place] [facility] [address] [id number] [place] [address]- 0238 May, [facility] [place] [facility] [address] [id number], [place] [address]- 2047 May, [facility] [place] [facility] [address] [id number] [place] [address]- 2266 May, [facility] [place] [facility] [address] [id number], [place] [address]- 4026 Mar, [facility] [place] [facility] [address] [id number] [place] [address]- 5209 Mar, [facility] [place] [facility] [address] [id number] [place] [address]- 5311 Mar, [facility] [place] [facility] [address] [id number], [place] [address]- 2419 Mar, [facility] [place] [facility] [address] [id number], [place] [address]- 3828 Mar, [facility] [place] [facility] [address] [id number] [place] [address]- 2161 Mar, [facility] [place] [facility] [address] [id number] [place] [address]- 9938 Mar, [facility] [place] [facility] [address] [id number] [place] [address]- 5593 Mar, [facility] [place] [facility] [address] [id number] [place] [address]- 7819 Mar, [facility] [place] [facility] [address] [id number] [place] [address]- 5564 Mar, [facility] [place] [facility] [address] [id number] [place] [address]- 5333 Jan, [facility] [place] [facility] [address] [id number] [place] [address]- 3712 Jan, [facility] [place] [facility] [address] [id number] [place] [address]- 0634 Nov, [facility] [place] [facility] [address] [id number] [place] [address]- 1437 Nov, [facility] [place] [facility] [address] [id number] [place] [address]- 1477 October, [facility] [place] [facility] [address] [id number] [place] [address]- 4610 October, [facility] [place] [facility] [address] [id number] [place] [address]- 5062 October, [facility] [place] [facility] [address] [id number] [place] 9065 October, [facility] [place] [facility] [address] [id number] [place] 6650 October, [facility] [place] [facility] [address] [id number] [place] [address]- 6885 October, [facility] [place] [facility] [address] [id number] [place] [address]- 1652 October, [facility] [place] [facility] [address] [id number] [place] [address]- 0898 October, [facility] [place] [facility] [address] [id number] [place] [address]- 0081 Sep, [facility] [place] [facility] [address] [id number] [place] [address]- 4454 Sep, [facility] [place] [facility] [address] [id number] [place] [address]- 0023 Aug, [facility] [place] [facility] [address] [id number] [place] [address]- 5675 Aug, [facility] [place] [facility] [address] [id number] [place] [address]- 0328 Aug, [facility] [place] [facility] [address] [id number] [place] [address]- 2281 Aug, [facility] [place] [facility] [address] [id number] [place] [address]- 2026 May, [facility] [place] [facility] [address] [id number] [place] [address]- 7687 May, [facility] [place] [facility] [address] [id number] [place] [address]- 8053 May, [facility] [place] [facility] [address] [id number] [place] [address]- 8438 May, [facility] [place] [facility] [address] [id number] [place] [address]- 9341 May, [facility] [place] [facility] [address] [id number] [place] [address]- 2651 May, [facility] [place] [facility] [address] [id number] [place] [address]- 9159 May, [facility] [place] [facility] [address] [id number] [place] [address]- 8802 May, [facility] [place] [facility] [address] [id number] [place] [address] 254 Mar, [facility] [place] [facility] [address] [id number] [place] [address]- 2546 16 Mar, 2013 [facility] [place] [facility] [address] [id number] [place] [address]- 2546 Mar, [facility] [place] [facility] [address] [id number] [place] [address]- 2546 Jan, [facility] [place] [facility] [address] [id number] [place] [address]- 2540 Jan, [facility] [place] [facility] [address] [id number] [place] [address]- 2296 Dec, [facility] [place] [facility] [address] [id number] [place] [address]- 3730 Dec, [facility] [place] [facility] [address] [id number] [place] [address]- 2815 Dec, [facility] [place] [facility] [address] [id number] [place] [address]- 4048 Sep, [facility] [place] [facility] [address] [id number] [place] [address]- 1533 Aug, [facility] [place] [facility] [address] [id number] [place] [address]- 1934 21 Aug, 2012 [facility] [place] [facility] [address] [id number], [place] [address] 2544 18 Aug, 2012 [facility] [place] [facility] [address] [id number] [place] [address]- 2544 15 Aug, 2012 [facility] [place] [facility] [address] [id number] [place] [address] 2547 14 Aug, 2012 [facility] [place] [facility] [address] [id number] [place] [address]- 2546 11 Aug, 2012 [facility] [place] [facility] [address] [id number] [place] [address]- 1676 16 Jul, 2012 [facility] [address] [id number] [place] [address]- 4212 Jul, [facility] [address] [id number] [place] [address]- 3003 Jul, [facility] [address] [id number] [place] [address]- 9945 Jul, [facility] [address] [id number] [place] [address]- 8776 Jul, [facility] [address] [id number] [place] [address]- 7040 Jul, [facility] [address] [id number] [place] [address]- 9868 May, [facility] [address] [id number] [place] [address]- 7810 May, [facility] [address] [id number] [place] [address]- 2030 May, [facility] [address] [id number] [place] [address]- 8367 May, [facility] [address] [id number] [place] [address]- 8857 May, [facility] [address] [id number] [place] [address]- 6074 May, [facility] [address] [id number] [place] [address]- 5743 Mar, [facility] [address] [id number] [place] [address]- 9903 Mar, [facility] [address] [id number] [place] [address]- 1245 Mar, [facility] [address] [id number] [place] [address]- 9165 Mar, [facility] [place] [facility] [address] [id number] [place] [address]- 8159 Mar, [facility] [place] [facility] [address] [id number] [place] [address]- 4936 Mar, [facility] [place] [facility] [address] [id number] [place] [address] 2546 Mar, [facility] [place] [facility] [address] [id number] [place] [address] 2545 Dec, [facility] [place] [facility] [address] [id number] [place] [address]- 1084 Nov, [facility] [place] [facility] [address] [id number] [place] [address]- 7936 Sep, [facility] [place] [facility] [address] [id number] [place] [address]- 0152 Aug, [facility] [place] [facility] [address] [id number] [place] [address]- 0852 Aug, [facility] [place] [facility] [address] [id number] [place] [address]- 0368 Aug, [facility] [place] [facility] [address] [id number] [place] [address]- 2336 Aug, [facility] [place] [facility] [address] [id number] [place] [address]- 5450 Aug, [facility] [place] [facility] [address] [id number] [place] [address] 2546 Aug, [facility] [place] [facility] [address] [id number] [place] [address]- 8145 Jul, [facility] [place] [facility] [address] [id number] [place] [address]- 1836 Jul, [facility] [place] [facility] [address] [id number] [place] [address]- 2416 Jul, [facility] [place] [facility] [address] [id number], [place] [address]- 3296 May, [facility] [place] [facility] [address] [id number] [place] [address]- 9893 May, [facility] [place] [facility] [address] [id number] [place] [address]- 8497 Mar, [facility] [place] [facility] [address] [id number] [place] [address]- 1376 24 Mar, 2011 [facility] [place] [facility] [address] [id number] [place] [address]- 7410 Mar, [facility] [place] [facility] [address] [id number] [place] [address]- 9830 10 Mar, 2011 [facility] [place] [facility] [address] [id number] [place] [address]- 2414 Dec, [facility] [place] [facility] [address] [facility] [id number] [place] [address]- 0918 14 May, 2010 [facility] [place] [facility] [address] [id number] [place] [address]- 7859 May, [facility] [place] [facility] [address] [id number] [place] [address]- 2970 May, [facility] [place] [facility] [address] [facility] [id number] [place] [address]- 9498 14 Mar, 2010 [facility] [place] [facility] [address] [id number] [place] [address]- 4465 14 Mar, 2010 [facility] [place] [facility] [address] [id number] [place] [address]- 6525 Jan, [facility] [place] [facility] [address] [id number] [place] [address]- 0552 Aug, [facility] [place] [facility] [address] [id number] [place] [address]- 6576 May, [facility] [place] [facility] [address] [facility] [id number] [place] [address] May, [facility] [place] [facility] [id number] [address] 16 May, 2009 [facility] [address] [id number] [address] 16 May, 2009 [facility] [id number] [address] May, [facility] [id number] [address] Mar, [facility] [id number] [address] Jul, [facility] [id number], [place] [address] May, [facility] [id number] [address] Mar, [facility] [id number], [place] [address] Sep, [facility] [address] [id number], [place] [address] Jul, IMMUNIZATIONS No Known Immunizations SOCIAL HISTORY Never Assessed REASON FOR VISIT Back pain-Lisa, knot on lower back PLAN OF CARE Activity Details Follow Up prn Reason: VITAL SIGNS Height 66 in 2017-11-15 Weight 159.2 lbs 2017-11-15 Temperature 98.2 degrees Fahrenheit 2017-11-15 Heart Rate 68 bpm 2017-11-15 Respiratory Rate 16 2017-11-15 BMI 25.69 kg/m2 2017-11-15 Blood pressure systolic 122 mmHg 2017-11-15 Blood pressure diastolic 64 mmHg 2017-11-15 MEDICATIONS Medication Instructions Dosage Frequency Start Date End Date Duration Status Pyridium 200 mg Orally Three times a day 1 tablet after meals 8h October, October, 2 day(s) Active Paxil 10 mg Orally Once a day at bedtime 1 tablet Sep, 30 day (s) Active Diflucan 150 MG Orally once 1 tablet October, 1 dose Active Lamictal 25 MG Orally Once a day for two weeks, then 2 tablets daily 1 tablet Sep, 30 day(s) Active RESULTS Name Result Date Reference Range Xray : Spine, Lumbar 2-3 views (IN HOUSE) 2017-11-15 PROCEDURES Procedure Date Ordered Result Body Site X-RAY EXAM OF LOWER SPINE November 15, 2017 INSTRUCTIONS MEDICATIONS ADMINISTERED No Known Medications [...]
--- OUTSIDE RECORDS SUMMARY | 2018-05-01 20:28 | XMS REPORT ---
Author Author NORAMN KEENAN Organization [facility] Address [address] [place] [address] Care Team Providers Care Label Maker Name Role Phone NORMAN KEENAN Unavailable PROBLEMS Type Condition ICD9-CM Code [id number] Code Onset Dates Condition Status SNOMED Code Problem Irregular menses N92.6 Active 06335945 Problem Generalized anxiety disorder F41.1 Active 96359932 Problem Unspecified mood [affective] disorder F39 Active 601832256 Problem PCOS (polycystic ovarian syndrome) E28.2 Active 81781080 Problem IBS (irritable bowel syndrome) K58.9 Active 41031489 Problem Tobacco abuse Z72.0 Active 78442705 Problem Tobacco abuse counseling Z71.6 Active 762545174 Problem Abnormal uterine bleeding N93.9 Active 33715882271315 Problem Other chronic pain G89.29 Active 64095445 Problem History of drug dependence/abuse F19.21 Active Problem Chronic posttraumatic stress disorder F43.12 Active 961991192 Problem Bipolar II disorder F31.81 Active 29423663 Problem PTSD (post-traumatic stress disorder) F43.10 Active 43921147 ALLERGIES No Known Allergies ENCOUNTERS Encounter Location Date Diagnosis [place] [id number] [address] Mar, [facility] [address] [address] Dec, [facility] [address] [address] Dec, [facility] [id number] [place] [address] 29036- 2698 Nov, Irregular menses N92.6 ; Abnormal uterine bleeding N93.9 ; History of PCOS Z87.42 and History of unprotected sex Z72.51 [facility] [id number] [place] [address] 15103- 0288 October, [place] [id number] [place] [address] 80272- 4330 October, Low back pain M54.5 ; Dysuria R30.0 ; Other chronic pain G89.29 and Routine gynecological examination Z01.419 [place] [id number] [place] [address] 88579- 4169 October, Dysuria R30.0 and Vaginal discharge N89.8 [place] [id number] [place] [address] 52219- 8065 Sep, Bipolar II disorder F31.81 ; PTSD (post-traumatic stress disorder) F43.10 ; Generalized anxiety disorder F41.1 and History of drug dependence/abuse F19.21 [place] [id number] [place] [address] 81511- 2580 Sep, Unspecified mood [affective] disorder F39 and Post- traumatic stress disorder, unspecified F43.10 [place] [id number] [place] [address] 74920- 9272 Aug, PCOS (polycystic ovarian syndrome) E28.2 ; Recurrent major depressive disorder, in full remission F33.42 ; IBS (irritable bowel syndrome) K58.9 and Tobacco abuse Z72.0 [place] [id number] [place] [address] 37548- 3312 Aug, Generalized anxiety disorder F41.1 and Depressive disorder, not elsewhere classified F32.9 [place] [address] [place] [address] 34832- 6715 Aug, PCOS (polycystic ovarian syndrome) E28.2 ; Recurrent major depressive disorder, in full remission F33.42 ; IBS (irritable bowel syndrome) K58.9 ; Tobacco abuse Z72.0 ; Tobacco abuse counseling Z71.6 ; Dysuria R30.0 ; Irregular menses N92.6 ; Vaginal candidiasis B37.3 and Acute cystitis without hematuria N30.00 [place] [id number] [address] May, [facility] [id number] [place] [address] 46195- 6206 18 Mar, 2017 Vaginal discharge N89.8 and Recurrent candidiasis of vagina B37.3 [facility] [id number] [place] [address] 77977- 2799 13 Mar, 2017 Nausea and vomiting in adult R11.2 ; Sore throat J02.9 and Diarrhea, unspecified type R19.7 [place] [id number] [place] [address] 94410- 4093 11 Mar, 2017 [place] [id number] [place] [address] 48089- 8426 14 Jan, 2017 Vaginal discharge N89.8 ; Dysuria R30.0 ; High risk sexual behavior Z72.51 ; Major depressive disorder, single episode F32.9 and Vaginal candidiasis B37.3 [place] [id number] [place] [address] 17019- 7039 03 Jan, 2017 Anxiety F41.9 [place] [id number] [place] [address] 04896- 3795 Dec, [facility] [id number] [place] [address] 73036- 6927 Nov, Generalized anxiety disorder F41.1 ; Depressive disorder, not elsewhere classified F32.9 ; History of drug dependence/abuse F19.21 and 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 [facility] [address] [place] [address] 22716- 3480 19 Nov, 2016 Vaginal discharge N89.8 ; High risk sexual behavior Z72.51 ; Potential exposure to STD Z20.2 and Vaginal candidiasis B37.3 [facility] [address] [place] [address] 87022- 1050 16 Nov, 2016 History of drug dependence/abuse F19.21 and Major depressive disorder, single episode F32.9 [place] [id number] [place] [address] 52747- 1895 Nov, Right medial knee pain M25.561 [facility] [address] [address]- 7225 October, Nausea and vomiting, intractability of vomiting not specified, unspecified vomiting type R11.2 and Acute pyelonephritis N10 [facility] [address] 40839- 1073 Sep, Major depressive disorder, single episode F32.9 ; Alcohol abuse F10.10 and Tobacco abuse Z72.0 [place] [address] 76468- 0715 Sep, Major depressive disorder, single episode F32.9 ; Alcohol abuse F10.10 and History of drug dependence/abuse F19.21 [place] [address] 31083- 5281 Sep, Major depressive disorder, single episode F32.9 [facility] [address] [address] -[address]689 Aug, Acute cystitis with hematuria N30.01 and Dysuria R30.0 [place] [id number] [place] [address] 32790- 4342 Aug, Dysuria R30.0 ; Vaginal candidiasis B37.3 ; Vaginal discharge N89.8 and High risk sexual behavior Z72.51 [place] [id number] [place] [address] 17228- 9074 Jul, [place] [id number] [place] [address] 25114- 9604 Jul, Major depressive disorder, single episode F32.9 ; History of drug dependence/abuse F19.21 ; Alcohol abuse F10.10 and Tobacco abuse Z72.0 [facility] [place] [facility] [address] [place] [address] [id number] May, Dental examination Z01.20 and Dental caries K02.9 [facility] [id number] [place] [address] 61715- 2362 May, Fatigue, unspecified type R53.83 and Cough R05 [facility] [id number] [place] [address] 85614- 5029 May, [facility] [address] 14758- 7436 Mar, [facility] [address] 90795- 1478 Mar, [facility] [address] 28972- 8110 Mar, [facility] [address] 13156- 2195 Mar, [facility] [address] 79632- 9844 Mar, Absence of menstruation N91.2 ; Vagina itching L29.8 ; History of drug dependence/abuse F19.21 ; History of PID Z87.42 and Acute cystitis without hematuria N30.00 [facility] [id number] [place] [address] 82314- 7651 Sep, Routine health maintenance Z00.00 ; Late menses N91.0 ; History of drug dependence/abuse F19.21 ; Alcohol abuse F10.10 ; Tobacco abuse Z72.0 ; Tobacco abuse counseling Z71.6 and Back pain M54.9 [facility] [place] [facility] [id number] [place] [address] [id number] Aug, Dental examination Z01.20 and Dental caries K02.9 [facility] [id number] [place] [address] 63769- 7543 Jul, [facility] [id number] [place] [address] 95811- 5138 Jul, Surveillance of contraceptive injection Z30.42 [facility] [address] [place] [address]- 1144 13 Jul, 2015 Routine screening for STI (sexually transmitted infection) Z11.3 ; Drug use F19.90 ; Counseling on substance use and abuse Z71.89 ; Unprotected sexual intercourse Z72.51 ; Encounter for counseling regarding contraception Z30.9 ; Vaginal discharge N89.8 and Skin lesions L98.9 [facility] [id number] [place] [address] 14787- 7882 30 May, 2015 [facility] [address] 30211- 0773 May, Yeast infection B37.[address] 30313- 4932 May, Excessive and frequent menstruation with irregular cycle N92.1 ; Other fatigue R53.83 ; General counseling and advice for contraceptive management Z30.09 ; Evaluation for contraceptive injection Z30.013 ; Cough R05 ; Vaginal irritation N89.8 and Dizziness R42 [facility] [id number] [place] [address] 12409- 9981 Sep, [facility] [address] 61839- 6157 Sep, [facility] [id number] [place] [address] 12216- 6236 Aug, [facility] [id number] [place] [address] 97486- 1331 Aug, [facility] [id number] [place] [address] 08653- 1020 Aug, [facility] [address] 94050- 5431 Aug, [facility] [address] 88671- 2848 Aug, [facility] [id number] [place] [address] 25578- 3391 Aug, [facility] [place] [facility] [address] [id number] [place] [address]- 5212 Aug, 2014 [facility] [place] [facility] [address] [id number] [place] [address]- 6928 Aug, [facility] [place] [facility] [address] [id number] [place] [address]- 6727 Aug, 2014 [facility] [place] [facility] [address] [id number] [place] [address]- 5413 Aug, [facility] [place] [facility] [address] [id number] [place] [address]- 4861 Aug, [facility] [place] [facility] [address] [id number] [place] [address]- 3860 Aug, [facility] [place] [facility] [address] [facility] [id number] [place] [address]- 1871 Jul, [facility] [place] [facility] [address] [id number] [place] [address]- 9381 Jul, [facility] [place] [facility] [address] [id number] [place] [address]- 4753 May, [facility] [place] [facility] [address] [facility] [id number] [place] [address]- 3852 May, [facility] [place] [facility] [address] [facility] [id number] [place] [address]- 9073 May, [facility] [place] [facility] [address] [id number] [address]- 5420 May, [facility] [place] [facility] [address] [id number] [place] [address]- 3585 Mar, [facility] [place] [facility] [address] [id number] [place] [address]- 5000 Mar, [facility] [place] [facility] [address] [id number] [address]- 8674 Mar, [facility] [place] [facility] [address] [id number] [address]- 9763 Mar, [facility] [place] [facility] [address] [id number] [place] [address]- 6013 Mar, [facility] [place] [facility] [address] [id number] [place] [address]- 4596 Mar, [facility] [place] [facility] [address] [id number] [place] [address]- 9955 Mar, [facility] [place] [facility] [address] [id number] [place] [address]- 8946 Mar, [facility] [place] [facility] [address] [id number] [place] [address]- 7837 Mar, [facility] [place] [facility] [address] [id number] [place] [address]- 7914 Mar, [facility] [place] [facility] [address] [id number] [place] [address]- 3978 Jan, [facility] [place] [facility] [address] [id number] [place] [address]- 4660 Jan, [facility] [place] [facility] [address] [id number] [place] [address]- 9222 Nov, [facility] [place] [facility] [address] [id number] [place] [address]- 6839 Nov, [facility] [place] [facility] [address] [id number] [place] [address]- 7531 October, [facility] [place] [facility] [address] [id number] [place] [address]- 0958 October, [facility] [place] [facility] [address] [id number] [place] 6083 October, [facility] [place] [facility] [address] [id number] [place] 9085 October, [facility] [place] [facility] [address] [id number] [place] [address]- 1390 October, [facility] [place] [facility] [address] [id number] [place] [address]- 8603 October, [facility] [place] [facility] [address] [id number] [place] [address]- 6301 October, [facility] [place] [facility] [address] [id number] [place] [address]- 0710 October, [facility] [place] [facility] [address] [id number] [place] [address]- 4857 Sep, [facility] [place] [facility] [address] [id number] [place] [address]- 6555 Sep, [facility] [place] [facility] [address] [id number] [place] [address]- 6534 Aug, [facility] [place] [facility] [address] [facility] [id number] [place] [address]- 2009 Aug, [facility] [place] [facility] [address] [id number] [place] [address]- 8732 Aug, [facility] [place] [facility] [address] [id number] [place] [address]- 1173 Aug, [facility] [place] [facility] [address] [facility] [id number] [place] [address]- 9240 May, [facility] [place] [facility] [address] [id number] [place] [address]- 4031 May, [facility] [place] [facility] [address] [id number] [place] [address]- 7345 May, [facility] [place] [facility] [address] [id number] [place] [address]- 1912 May, [facility] [place] [facility] [address] [id number] [place] [address]- 0853 May, [facility] [place] [facility] [address] [id number] [place] [address]- 1833 May, [facility] [place] [facility] [address] [id number] [place] [address]- 3089 May, [facility] [place] [facility] [address] [id number] [place] [address]- 0060 May, [facility] [place] [facility] [address] [id number] [place] [address]- 2546 Mar, [facility] [place] [facility] [address] [id number] [place] [address] 2546 Mar, [facility] [place] [facility] [address] [id number] [place] [address] 254 Mar, [facility] [place] [facility] [address] [id number] [place] [address]- 7725 Jan, [facility] [place] [facility] [address] [id number] [place] [address]- 6206 Jan, [facility] [place] [facility] [address] [id number] [place] [address]- 0480 Dec, [facility] [place] [facility] [address] [id number] [place] [address]- 3445 Dec, [facility] [place] [facility] [address] [id number] [place] [address]- 1061 Dec, [facility] [place] [facility] [address] [id number] [place] [address]- 6706 Sep, [facility] [place] [facility] [address] [id number] [place] [address]- 0636 28 Aug, 2012 [facility] [place] [facility] [address] [id number] [address] 2540 21 Aug, 2012 [facility] [place] [facility] [address] [id number] [place] [address] 2540 18 Aug, 2012 [facility] [place] [facility] [address] [id number] [place] [address] 2544 15 Aug, 2012 [facility] [place] [facility] [address] [id number] [place] [address] 2540 14 Aug, 2012 [facility] [place] [facility] [address] [id number] [place] [address]- 6023 Aug, [facility] [address] [id number] [place] [address]- 2724 16 Jul, 2012 [facility] [address] [id number] [place] [address]- 2688 15 Jul, 2012 [facility] [address] [id number] [place] [address]- 9974 Jul, [facility] [address] [id number] [place] [address]- 9912 Jul, [facility] [address] [id number] [place] [address]- 1724 Jul, [facility] [address] [id number] [place] [address]- 3346 Jul, [facility] [address] [id number] [place] [address]- 0109 May, [facility] [address] [id number] [place] [address]- 4292 May, [facility] [address] [id number] [place] [address]- 5380 May, [facility] [address] [id number] [place] [address]- 7711 18 May, 2012 [facility] [address] [id number] [place] [address]- 9694 15 May, 2012 [facility] [address] [id number] [place] [address]- 4232 15 May, 2012 [facility] [address] [id number] [place] [address]- 1313 Mar, [facility] [address] [id number] [place] [address]- 9136 Mar, [facility] [address] [id number] [place] [address]- 6998 Mar, [facility] [place] [facility] [address] [id number] [place] [address]- 6839 Mar, [facility] [place] [facility] [address] [id number] [place] [address]- 3996 Mar, [facility] [place] [facility] [address] [id number] [place] [address] 2546 Mar, [facility] [place] [facility] [address] [id number] [place] [address] 2546 Mar, [facility] [place] [facility] [address] [id number] [place] [address]- 6951 Dec, [facility] [place] [facility] [address] [id number] [place] [address]- 8716 Nov, [facility] [place] [facility] [address] [id number] [place] [address]- 1183 Sep, [facility] [place] [facility] [address] [id number] [place] [address]- 5602 Aug, [facility] [place] [facility] [address] [id number] [place] [address]- 8409 Aug, [facility] [place] [facility] [address] [id number] [place] [address]- 7474 Aug, [facility] [place] [facility] [address] [id number] [place] [address]- 1197 Aug, [facility] [place] [facility] [address] [id number] [place] [address]- 7454 16 Aug, 2011 [facility] [place] [facility] [address] [id number] [place] [address]- 3650 Aug, [facility] [place] [facility] [address] [id number] [place] [address]- 1996 Jul, [facility] [place] [facility] [address] [id number] [place] [address] 2546 Jul, [facility] [place] [facility] [address] [id number] [address]- 6821 10 Jul, 2011 [facility] [place] [facility] [address] [id number] [place] [address]- 0973 May, [facility] [place] [facility] [address] [id number] [place] [address]- 0246 May, [facility] [place] [facility] [address] [id number] [place] [address]- 8485 Mar, [facility] [place] [facility] [address] [id number] [place] [address]- 5136 24 Mar, 2011 [facility] [place] [facility] [address] [id number] [place] [address]- 6937 Mar, [facility] [place] [facility] [address] [id number] [place] [address]- 8169 Mar, [facility] [place] [facility] [address] [id number] [place] [address]- 2339 Dec, [facility] [place] [facility] [address] [id number] [place] [address]- 3431 14 May, 2010 [facility] [place] [facility] [address] [id number] [place] [address]- 1631 May, [facility] [place] [facility] [address] [id number] [place] [address]- 1956 May, [facility] [place] [facility] [address] [id number] [place] [address]- 0164 14 Mar, 2010 [facility] [place] [facility] [address] [id number] [place] [address]- 2973 14 Mar, 2010 [facility] [place] [facility] [address] [id number] [place] [address]- 1644 Jan, [facility] [place] [facility] [address] [id number] [place] [address]- 7344 18 Aug, 2009 [facility] [place] [facility] [address] [id number] [place] 5638 May, [facility] [place] [facility] [address] [address] May, [facility] [address] [address]- 0923 May, [facility] [address] 3211 May, [facility] [id number] [place] [phone] May, [facility] [id number] [address] Mar, [facility] [id number] [place] [id number] Jul, [facility] [id number] [place] [phone] May, [facility] [id number] [place] [phone] Mar, [facility] [id number] [place] [phone] Sep, [facility] [id number] [address] Jul, IMMUNIZATIONS No Known Immunizations SOCIAL HISTORY Never Assessed REASON FOR VISIT Vaginal bleeding, irregular----DBennettRN, pt reports periods are normally regular and last approx 3-4 days, reports heavy bleeding since 12/18, also having lot of cramping and nausea/vomiting PLAN OF CARE Activity Details Follow Up prn Reason:pending AUB & lab Pending Test PAP REFLEX TO HPV IF ASCUS VITAL SIGNS Height 66 in 2017-12-26 Weight 157 lbs 2017-12-26 Temperature 98.0 degrees Fahrenheit 2017-12-26 Heart Rate 80 bpm 2017-12-26 Respiratory Rate 20 2017-12-26 BMI 25.34 kg/m2 2017-12-26 Blood pressure systolic 124 mmHg 2017-12-26 Blood pressure diastolic 72 mmHg 2017-12-26 MEDICATIONS Medication Instructions Dosage Frequency Start Date End Date Duration Status Lamictal 25 MG Orally Once a day for two weeks, then 2 tablets daily 1 tablet Sep, 30 day(s) Not-Taking Diflucan 150 MG Orally once 1 tablet October, 1 dose Not-Taking Paxil 10 mg Orally Once a day at bedtime 1 tablet Sep, 30 day (s) Not-Taking RESULTS No Results PROCEDURES Procedure Date Ordered Result Body Site URINE TEST December 26, 2017 No Charge December 26, 2017 SPECIMEN HANDLING December 26, 2017 CULTURE, BACTERIA, OTHER December 26, 2017 Bacterial Vaginosis In House December 26, 2017 TRICHOMONAS ASSAY W/OPTIC December 26, 2017 INSTRUCTIONS MEDICATIONS ADMINISTERED No Known Medications [...]
--- OUTSIDE RECORDS SUMMARY | 2018-05-01 20:29 | XMS REPORT ---
Author Author LIS GUTIÉRREZ [facility] Address [address] [place] [address] Care Team Providers Care Shoe Caser Name Role Phone LIS GUTIÉRREZ Unavailable PROBLEMS Type Condition ICD9-CM Code [id number] Code Onset Dates Condition Status SNOMED Code Problem Irregular menses N92.6 Active 50076737 Problem Generalized anxiety disorder F41.1 Active 22343872 Problem Unspecified mood [affective] disorder F39 Active 300478603 Problem PCOS (polycystic ovarian syndrome) E28.2 Active 68333892 Problem IBS (irritable bowel syndrome) K58.9 Active 90140080 Problem Tobacco abuse Z72.0 Active 59792189 Problem Tobacco abuse counseling Z71.6 Active 759452833 Problem Abnormal uterine bleeding N93.9 Active 33250590803490 Problem Other chronic pain G89.29 Active 03651370 Problem History of drug dependence/abuse F19.21 Active Problem Chronic posttraumatic stress disorder F43.12 Active 246995899 Problem Bipolar II disorder F31.81 Active 84908045 Problem PTSD (post-traumatic stress disorder) F43.10 Active 94042507 ALLERGIES No Known Allergies ENCOUNTERS Encounter Location Date Diagnosis [place] [id number], [place] [address] Jan, [facility] [address], [place] [address] Dec, [facility] [id number] [place] [address] 67283- 2506 Dec, [place] [id number] [place] [address] 59108- 2779 Nov, Irregular menses N92.6 ; Abnormal uterine bleeding N93.9 ; History of PCOS Z87.42 and History of unprotected sex Z72.51 [facility] [id number] [place] [address] 34295- 6202 October, [place] [address] [address] October, Low back pain M54.5 ; Dysuria R30.0 ; Other chronic pain G89.29 and Routine gynecological examination Z01.419 [facility] [id number] [place] [address] 50027- 2757 October, Dysuria R30.0 and Vaginal discharge N89.8 [place] [address] [id number] [place] [address] 12641- 1892 Sep, Bipolar II disorder F31.81 ; PTSD (post-traumatic stress disorder) F43.10 ; Generalized anxiety disorder F41.1 and History of drug dependence/abuse F19.21 [place] [id number] [place] [address] 47905- 2609 Sep, Unspecified mood [affective] disorder F39 and Post- traumatic stress disorder, unspecified F43.10 [facility] [id number] [place] [address] 88480- 3826 Aug, PCOS (polycystic ovarian syndrome) E28.2 ; Recurrent major depressive disorder, in full remission F33.42 ; IBS (irritable bowel syndrome) K58.9 and Tobacco abuse Z72.0 [place] [id number] [place] [address] 66672- 3887 Aug, Generalized anxiety disorder F41.1 and Depressive disorder, not elsewhere classified F32.9 [place] [id number] [place] [address] 06904- 5852 Aug, PCOS (polycystic ovarian syndrome) E28.2 ; Recurrent major depressive disorder, in full remission F33.42 ; IBS (irritable bowel syndrome) K58.9 ; Tobacco abuse Z72.0 ; Tobacco abuse counseling Z71.6 ; Dysuria R30.0 ; Irregular menses N92.6 ; Vaginal candidiasis B37.3 and Acute cystitis without hematuria N30.00 [place] [address], [place] [address] May, [facility] [id number] [place] [address] 94469- 6901 18 Mar, 2017 Vaginal discharge N89.8 and Recurrent candidiasis of vagina B37.3 [facility] [id number] [place] [address] 28957- 0671 13 Mar, 2017 Nausea and vomiting in adult R11.2 ; Sore throat J02.9 and Diarrhea, unspecified type R19.7 [facility] [id number] [place] [address] 75468- 2796 11 Mar, 2017 [place] [address] [id number] [place] [address] 27220- 7358 14 Jan, 2017 Vaginal discharge N89.8 ; Dysuria R30.0 ; High risk sexual behavior Z72.51 ; Major depressive disorder, single episode F32.9 and Vaginal candidiasis B37.3 [facility] [id number] [place] [address] 11404- 8413 03 Jan, 2017 Anxiety F41.9 [place] [address] [id number] [place] [address] 86646- 2076 Dec, [facility] [id number] [place] [address] 70979- 2398 Nov, Generalized anxiety disorder F41.1 ; Depressive disorder, not elsewhere classified F32.9 ; History of drug dependence/abuse F19.21 and 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 [facility] [id number] [place] [address] 80673- 5300 19 Nov, 2016 Vaginal discharge N89.8 ; High risk sexual behavior Z72.51 ; Potential exposure to STD Z20.2 and Vaginal candidiasis B37.3 [facility] [id number] [place] [address] 09744- 2003 16 Nov, 2016 History of drug dependence/abuse F19.21 and Major depressive disorder, single episode F32.9 [place] [address] [id number] [place] [address] 90696- 3722 Nov, Right medial knee pain M25.561 [facility] [address] 6[address]26- 7617 October, Nausea and vomiting, intractability of vomiting not specified, unspecified vomiting type R11.2 and Acute pyelonephritis N10 [facility] [address] 39023- 1037 Sep, Major depressive disorder, single episode F32.9 ; Alcohol abuse F10.10 and Tobacco abuse Z72.0 [place] [address] 11023- 0048 Sep, Major depressive disorder, single episode F32.9 ; Alcohol abuse F10.10 and History of drug dependence/abuse F19.21 [place] [address] 09230- 9850 Sep, Major depressive disorder, single episode F32.9 [facility] [address] 38768 -2466 Aug, Acute cystitis with hematuria N30.01 and Dysuria R30.0 [facility] [address] [id number] [place] [address] 89119- 3548 Aug, Dysuria R30.0 ; Vaginal candidiasis B37.3 ; Vaginal discharge N89.8 and High risk sexual behavior Z72.51 [facility] [address] [place] [id number] [place] [address] 80195- 9865 Jul, [place] [address] 25120- 3569 Jul, Major depressive disorder, single episode F32.9 ; History of drug dependence/abuse F19.21 ; Alcohol abuse F10.10 and Tobacco abuse Z72.0 [facility] [address] [place] [address] [id number] May, Dental examination Z01.20 and Dental caries K02.9 [facility] [id number] [place] [address] 55667- 6250 May, Fatigue, unspecified type R53.83 and Cough R05 [facility] [id number] [place] [address] 75247- 0587 May, [facility] [id number] [place] [address] 76637- 6272 Mar, [facility] [id number] [place] [address] 07859- 3933 Mar, [facility] [address] [id number] [place] [address] 99324- 9485 Mar, [facility] [address] [place] [id number] [place] [address] 43586- 6402 Mar, [facility] [address] 35335- 0063 Mar, Absence of menstruation N91.2 ; Vagina itching L29.8 ; History of drug dependence/abuse F19.21 ; History of PID Z87.42 and Acute cystitis without hematuria N30.00 [facility] [address] [place] [id number] [place] [address] 67370- 1895 Sep, Routine health maintenance Z00.00 ; Late menses N91.0 ; History of drug dependence/abuse F19.21 ; Alcohol abuse F10.10 ; Tobacco abuse Z72.0 ; Tobacco abuse counseling Z71.6 and Back pain M54.9 [facility] [address] [place] [address] [id number] Aug, Dental examination Z01.20 and Dental caries K02.9 [facility] [id number] [place] [address] 11699- 2784 Jul, [facility] [address] [id number] [place] [address] 42467- 1875 Jul, Surveillance of contraceptive injection Z30.42 [facility] [id number] [place] [address] 81414- 7473 13 Jul, 2015 Routine screening for STI (sexually transmitted infection) Z11.3 ; Drug use F19.90 ; Counseling on substance use and abuse Z71.89 ; Unprotected sexual intercourse Z72.51 ; Encounter for counseling regarding contraception Z30.9 ; Vaginal discharge N89.8 and Skin lesions L98.9 [place] [address] 97179- 7517 30 May, 2015 [facility] [address] 12486- 0500 May, Yeast infection B37.[address] 44198- 3940 May, Excessive and frequent menstruation with irregular cycle N92.1 ; Other fatigue R53.83 ; General counseling and advice for contraceptive management Z30.09 ; Evaluation for contraceptive injection Z30.013 ; Cough R05 ; Vaginal irritation N89.8 and Dizziness R42 [place] [id number] [place] [address] 78018- 1603 Sep, [place] [address] 40089- 4370 Sep, [facility] [id number] [place] [address] 59666- 2049 Aug, [facility] [id number] [place] [address] 71505- 8332 Aug, [facility] [id number] [place] [address] 57827- 3583 Aug, [facility] [id number] [place] [address] 73370- 2797 Aug, [facility] [id number] [place] [address] [id number]- 9930 Aug, [facility] [id number] [place] [address] 76568- 3476 Aug, [facility] [place] [facility] [address] [id number] [place] [address]- 1092 Aug, [facility] [place] [facility] [address] [id number] [place] [address]- 8133 Aug, [facility] [place] [facility] [address] [id number] [place] [address]- 4022 Aug, [facility] [place] [facility] [address] [id number] [place] [address]- 8332 Aug, [facility] [place] [facility] [address] [id number] [place] [address]- 4255 Aug, [facility] [place] [facility] [address] [id number] [place] [address]- 0275 Aug, [facility] [place] [facility] [address] [id number] [place] [address]- 2405 Jul, [facility] [place] [facility] [address] [id number] [place] [address]- 0143 Jul, [facility] [place] [facility] [address] [id number] [place] [address]- 4687 May, [facility] [place] [facility] [address] [id number] [place] [address]- 1855 May, [facility] [place] [facility] [address] [id number] [place] [address]- 5821 May, [facility] [place] [facility] [address] [id number] [address]- 4862 May, [facility] [place] [facility] [address] [id number] [place] [address]- 3733 Mar, [facility] [place] [facility] [address] [id number] [place] [address]- 7724 Mar, [facility] [place] [facility] [address] [id number] [place] [address]- 5087 Mar, [facility] [place] [facility] [address] [id number] [place] [address]- 2681 Mar, [facility] [place] [facility] [address] [id number] [place] [address]- 2501 Mar, [facility] [place] [facility] [address] [id number] [place] 0324 Mar, [facility] [place] [facility] [address] [id number] [place] [address]- 4114 Mar, [facility] [place] [facility] [address] [id number] [place] [address]- 5043 Mar, [facility] [place] [facility] [address] [id number] [place] [address]- 4907 Mar, [facility] [place] [facility] [address] [id number] [place] [address]- 2067 Mar, [facility] [place] [facility] [address] [id number] [place] [address]- 0272 Jan, [facility] [place] [facility] [address] [id number] [place] [address]- 3200 Jan, [facility] [place] [facility] [address] [id number] [place] [address]- 1190 Nov, [facility] [place] [facility] [address] [id number] [place] [address]- 9620 Nov, [facility] [place] [facility] [address] [id number] [place] [address]- 0368 October, [facility] [place] [facility] [address] [id number] [place] [address]- 3436 October, [facility] [place] [facility] [address] [id number] [place] [address]- 8473 October, [facility] [place] [facility] [address] [id number] [place] [address]- 1378 October, [facility] [place] [facility] [address] [id number] [place] [address]- 0205 October, [facility] [place] [facility] [address] [id number] [place] [address]- 7914 October, [facility] [place] [facility] [address] [id number] [place] [address]- 7312 October, [facility] [place] [facility] [address] [id number] [place] [address]- 0060 October, [facility] [place] [facility] [address] [id number] [place] [address]- 4087 Sep, [facility] [place] [facility] [address] [id number] [place] [address]- 0533 Sep, [facility] [place] [facility] [address] [id number] [place] [address]- 8314 Aug, [facility] [place] [facility] [address] [facility] [id number] [place] [address]- 9749 Aug, [facility] [place] [facility] [address] [id number] [place] [address]- 8056 Aug, [facility] [place] [facility] [address] [id number] [place] [address]- 1304 Aug, [facility] [place] [facility] [address] [facility] [id number] [place] [address]- 8435 May, [facility] [place] [facility] [address] [id number] [place] [address]- 6451 May, [facility] [place] [facility] [address] [id number] [place] [address]- 2665 May, [facility] [place] [facility] [address] [id number] [place] [address]- 2406 May, [facility] [place] [facility] [address] [id number] [place] [address]- 2142 May, [facility] [place] [facility] [address] [id number] [place] [address]- 8584 May, [facility] [place] [facility] [address] [id number] [place] [address]- 5396 May, [facility] [address] [id number] [place] [address]- 9934 May, [facility] [place] [facility] [address] [id number] [place] [address]- 8817 Mar, [facility] [place] [facility] [address] [id number] [place] [address]- 0610 Mar, [facility] [place] [facility] [address] [id number] [place] [address]- 0944 Mar, [facility] [place] [facility] [address] [id number] [place] [address]- 0597 Jan, [facility] [place] [facility] [address] [id number] [place] [address]- 8475 Jan, [facility] [place] [facility] [address] [id number] [place] [address]- 4623 Dec, [facility] [place] [facility] [address] [id number] [place] [address]- 4352 Dec, [facility] [place] [facility] [address] [id number] [place] [address]- 0648 Dec, [facility] [place] [facility] [address] [id number] [place] [address]- 9908 Sep, [facility] [place] [facility] [address] [id number] [place] [address]- 1083 28 Aug, 2012 [facility] [place] [facility] [address] [id number] [place] [address]- 6671 21 Aug, 2012 [facility] [place] [facility] [address] [id number] [place] [address]- 9985 18 Aug, 2012 [facility] [place] [facility] [address] [id number] [place] [address]- 5762 15 Aug, 2012 [facility] [place] [facility] [address] [id number] [place] [address]- 6830 14 Aug, 2012 [facility] [place] [facility] [address] [id number] [place] [address]- 9101 Aug, [facility] [address] [id number] [place] [address]- 5842 16 Jul, 2012 [facility] [place] [facility] [address] [id number] [place] [address]- 6956 15 Jul, 2012 [facility] [address] [id number] [place] [address]- 4766 Jul, [facility] [place] [facility] [address] [id number] [place] [address]- 5515 Jul, [facility] [address] [id number] [place] [address]- 0391 Jul, [facility] [address] [id number] [place] [address]- 8836 Jul, [facility] [address] [id number] [place] [address]- 9045 May, [facility] [address] [id number] [place] [address]- 3682 May, [facility] [address] [id number] [place] [address]- 1243 May, [facility] [address] [id number] [place] [address]- 7558 18 May, 2012 [facility] [place] [facility] [address] [id number] [place] [address]- 2727 May, [facility] [address] [id number] [place] [address]- 8233 15 May, 2012 [facility] [place] [facility] [address] [id number] [place] [address]- 4632 Mar, [facility] [place] [facility] [address] [id number] [place] [address]- 3566 Mar, [facility] [place] [facility] [address] [id number] [place] [address]- 7123 Mar, [facility] [place] [facility] [address] [id number] [place] [address]- 3956 Mar, [facility] [place] [facility] [address] [id number] [place] [address]- 0297 Mar, [facility] [place] [facility] [address] [id number] [place] [address]- 9285 Mar, [facility] [place] [facility] [address] [id number] [place] [address]- 3961 Mar, [facility] [place] [facility] [address] [id number] [place] [address]- 2826 Dec, [facility] [place] [facility] [address] [id number] [place] [address]- 8986 Nov, [facility] [place] [facility] [address] [id number] [place] [address]- 0346 Sep, [facility] [place] [facility] [address] [id number] [place] [address]- 7454 Aug, [facility] [place] [facility] [address] [id number] [place] [address]- 8132 Aug, [facility] [place] [facility] [address] [id number] [place] [address]- 6356 Aug, [facility] [place] [facility] [address] [id number] [place] [address]- 2313 Aug, [facility] [place] [facility] [address] [id number], [place] [address]- 8587 16 Aug, 2011 [facility] [place] [facility] [address] [id number] [place] [address]- 5047 Aug, [facility] [place] [facility] [address] [id number] [place] [address]- 9210 Jul, [facility] [place] [facility] [address] [id number] [place] [address]- 8925 Jul, [facility] [place] [facility] [address] [id number] [place] [address]- 5347 10 Jul, 2011 [facility] [place] [facility] [address] [id number] [place] [address]- 2893 12 May, 2011 [facility] [place] [facility] [address] [id number] [place] [address]- 2820 04 May, 2011 [facility] [place] [facility] [address] [id number] [place] [address]- 7505 25 Mar, 2011 [facility] [place] [facility] [address] [id number] [place] [address]- 5108 24 Mar, 2011 [facility] [place] [facility] [address] [id number] [place] [address]- 2477 Mar, [facility] [place] [facility] [address] [id number] [place] [address]- 7346 10 Mar, 2011 [facility] [place] [facility] [address] [id number] [place] [address] Dec, [facility] [place] [facility] [address] [id number] [place] [address] 14 May, 2010 [facility] [place] [facility] [address] [id number] [place] [address] 06 May, 2010 [facility] [place] [facility] [address] [id number] [place] [address] May, [facility] [place] [facility] [address] [id number] [place] [address] 14 Mar, 2010 [facility] [place] [facility] [address] [id number] [place] [address] 14 Mar, 2010 [facility] [place] [facility] [address] [id number] [place] [address] Jan, [facility] [place] [facility] [address] [id number] [place] [address] 18 Aug, 2009 [facility] [place] [facility] [address] [id number] [place] [address] 31 May, 2009 [facility] [id number] [address] May, [facility] [id number] [place] [address] May, [facility] [id number] [place] [address] May, [facility] [id number] [place] [address] May, [facility] [id number] [place] [address] Mar, [facility] [id number] [place] [address] Jul, [facility] [id number], [place] [address] May, [facility] [id number] [place] [address] Mar, [facility] [id number] [place] [address] Sep, [facility] [id number] [place] [address] Jul, IMMUNIZATIONS No Known Immunizations SOCIAL HISTORY Never Assessed REASON FOR VISIT intake PLAN OF CARE Activity Details Follow Up 4 Weeks Reason: f/u VITAL SIGNS Height 66 in 2017-10-22 Weight 159.6 lbs 2017-10-22 Heart Rate 76 bpm 2017-10-22 Respiratory Rate 20 2017-10-22 BMI 25.76 kg/m2 2017-10-22 Blood pressure systolic 118 mmHg 2017-10-22 Blood pressure diastolic 64 mmHg 2017-10-22 MEDICATIONS Medication Instructions Dosage Frequency Start Date End Date Duration Status Lamictal 25 MG Orally Once a day for two weeks, then 2 tablets daily 1 tablet Sep, 30 day(s) Active Paxil 10 mg Orally Once a day at bedtime 1 tablet Sep, 30 day (s) Active Zofran 8 MG Orally every 8 hours, PRN 1 tablet Mar, Not- Taking RESULTS No Results PROCEDURES No Known procedures [...]
--- OUTSIDE RECORDS SUMMARY | 2018-05-01 20:29 | XMS REPORT ---
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 Name Role Phone JOIE Bunn Unavailable PROBLEMS Type Condition ICD9-CM Code FER90-KE Code Onset Dates Condition Status SNOMED Code Problem Irregular menses N92.6 Active 38324650 Problem Generalized anxiety disorder F41.1 Active 52978075 Problem Unspecified mood [affective] disorder F39 Active 045930639 Problem PCOS (polycystic ovarian syndrome) E28.2 Active 98207586 Problem IBS (irritable bowel syndrome) K58.9 Active 86116339 Problem Tobacco abuse Z72.0 Active 58065028 Problem Tobacco abuse counseling Z71.6 Active 436375800 Problem Abnormal uterine bleeding N93.9 Active 80427356772918 Problem Other chronic pain G89.29 Active 87381435 Problem History of drug dependence/abuse F19.21 Active Problem Chronic posttraumatic stress disorder F43.12 Active 061873608 Problem Bipolar II disorder F31.81 Active 63675011 Problem PTSD (post-traumatic stress disorder) F43.10 Active 05857504 ALLERGIES No Known Allergies ENCOUNTERS Encounter Location Date Diagnosis [facility] [address] [id number], [place] [address] Jan, [facility] [address] [id number] [address] Dec, [facility] [id number] [place] [address]26- 6047 Dec, [facility] [address] [id number], [place] [address] Nov, Irregular menses N92.6 ; Abnormal uterine bleeding N93.9 ; History of PCOS Z87.42 and History of unprotected sex Z72.51 [facility] [id number] [place] [address]16- 4477 October, [facility] [address] [address] October, Low back pain M54.5 ; Dysuria R30.0 ; Other chronic pain G89.29 and Routine gynecological examination Z01.419 [facility] [address] [address]- [address] October, Dysuria R30.0 and Vaginal discharge N89.8 [facility] [facility] [address] [address]- 1409 Sep, Bipolar II disorder F31.81 ; PTSD (post-traumatic stress disorder) F43.10 ; Generalized anxiety disorder F41.1 and History of drug dependence/abuse F19.21 [facility] [facility] [address] [address] Sep, Unspecified mood [affective] disorder F39 and Post- traumatic stress disorder, unspecified F43.10 [facility] [id number] [place] [address] 66957- 4782 Aug, PCOS (polycystic ovarian syndrome) E28.2 ; Recurrent major depressive disorder, in full remission F33.42 ; IBS (irritable bowel syndrome) K58.9 and Tobacco abuse Z72.0 [facility] [id number] [place] [address] 63442- 3983 Aug, Generalized anxiety disorder F41.1 and Depressive disorder, not elsewhere classified F32.9 [facility] [id number] [place] [address] 21468- 6648 Aug, PCOS (polycystic ovarian syndrome) E28.2 ; Recurrent major depressive disorder, in full remission F33.42 ; IBS (irritable bowel syndrome) K58.9 ; Tobacco abuse Z72.0 ; Tobacco abuse counseling Z71.6 ; Dysuria R30.0 ; Irregular menses N92.6 ; Vaginal candidiasis B37.3 and Acute cystitis without hematuria N30.00 [facility] [address] [place] [address] 86945- 3456 01 May, 2017 [facility] [id number] [place] [address] 07742- 8243 18 Mar, 2017 Vaginal discharge N89.8 and Recurrent candidiasis of vagina B37.3 [facility] [facility] [id number] [place] [address] 64914- 1693 13 Mar, 2017 Nausea and vomiting in adult R11.2 ; Sore throat J02.9 and Diarrhea, unspecified type R19.7 [facility] [id number] [place] [address] 27082- 3869 11 Mar, 2017 [facility] [id number] [place] [address] 92327- 5656 14 Jan, 2017 Vaginal discharge N89.8 ; Dysuria R30.0 ; High risk sexual behavior Z72.51 ; Major depressive disorder, single episode F32.9 and Vaginal candidiasis B37.3 [facility] [id number] [place] [address] 46548- 3312 03 Jan, 2017 Anxiety F41.9 [facility] [facility] [id number] [place] [address] 27022- 7721 Dec, [facility] [facility] [id number] [place] [address] 63343- 2423 Nov, Generalized anxiety disorder F41.1 ; Depressive disorder, not elsewhere classified F32.9 ; History of drug dependence/abuse F19.21 and 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 [facility] [address] [place] [address] 45816- 6910 19 Nov, 2016 Vaginal discharge N89.8 ; High risk sexual behavior Z72.51 ; Potential exposure to STD Z20.2 and Vaginal candidiasis B37.3 [facility] [address] [place] [address] 80003- 1934 16 Nov, 2016 History of drug dependence/abuse F19.21 and Major depressive disorder, single episode F32.9 [facility] [id number] [place] [address] 37975- 8754 Nov, Right medial knee pain M25.561 [facility] [address] [address]- [address] October, Nausea and vomiting, intractability of vomiting not specified, unspecified vomiting type R11.2 and Acute pyelonephritis N10 [facility] [address] 03316- 1013 Sep, Major depressive disorder, single episode F32.9 ; Alcohol abuse F10.10 and Tobacco abuse Z72.0 [facility] [facility] [address] 33943- 6823 Sep, Major depressive disorder, single episode F32.9 ; Alcohol abuse F10.10 and History of drug dependence/abuse F19.21 [facility] [id number] [place] [address] 46818- 9473 Sep, Major depressive disorder, single episode F32.9 [facility] [address] [address] -[address] Aug, Acute cystitis with hematuria N30.01 and Dysuria R30.0 [facility] [id number] [place] [address] 89043- 6547 Aug, Dysuria R30.0 ; Vaginal candidiasis B37.3 ; Vaginal discharge N89.8 and High risk sexual behavior Z72.51 [facility] [address] [place] [address] 64865- 1204 Jul, [facility] [address] [address]- 9505 Jul, Major depressive disorder, single episode F32.9 ; History of drug dependence/abuse F19.21 ; Alcohol abuse F10.10 and Tobacco abuse Z72.0 [facility] [address] [id number] May, Dental examination Z01.20 and Dental caries K02.9 [facility] [id number] [place] [address] 90287- 1285 May, Fatigue, unspecified type R53.83 and Cough R05 [facility] [id number] [place] [address] 36657- 1211 May, [facility] [address] 00725- 6987 Mar, [facility] [id number] [place] [address] 16285- 5039 Mar, [facility] [address] 33731- 3207 Mar, [facility] [id number] [place] [address] 06060- 3581 Mar, [facility] [id number] [place] [address] 24545- 7816 Mar, Absence of menstruation N91.2 ; Vagina itching L29.8 ; History of drug dependence/abuse F19.21 ; History of PID Z87.42 and Acute cystitis without hematuria N30.00 [facility] [id number] [place] [address] 40564- 5613 Sep, Routine health maintenance Z00.00 ; Late menses N91.0 ; History of drug dependence/abuse F19.21 ; Alcohol abuse F10.10 ; Tobacco abuse Z72.0 ; Tobacco abuse counseling Z71.6 and Back pain M54.9 [facility] [id number] [place] [address] [id number] Aug, Dental examination Z01.20 and Dental caries K02.9 [facility] [id number] [place] [address] 97795- 3508 Jul, [facility] [id number] [place] [address] 46767- 6212 Jul, Surveillance of contraceptive injection Z30.42 [facility] [id number] [place] [address] 23660- 0600 13 Jul, 2015 Routine screening for STI (sexually transmitted infection) Z11.3 ; Drug use F19.90 ; Counseling on substance use and abuse Z71.89 ; Unprotected sexual intercourse Z72.51 ; Encounter for counseling regarding contraception Z30.9 ; Vaginal discharge N89.8 and Skin lesions L98.9 [facility] [id number] [place] [address] 29078- 0776 30 May, 2015 [facility] [facility] [id number] [place] [address] 67484- 6913 May, Yeast infection B37.9 [facility] [id number] [place] [address] 40493- 2732 May, Excessive and frequent menstruation with irregular cycle N92.1 ; Other fatigue R53.83 ; General counseling and advice for contraceptive management Z30.09 ; Evaluation for contraceptive injection Z30.013 ; Cough R05 ; Vaginal irritation N89.8 and Dizziness R42 [facility] [facility] [id number] [place] [address] 87496- 9142 Sep, [place] [facility] [address] 52215- 7530 Sep, [place] [facility] [id number] [place] [address] 24543- 1977 Aug, [facility] [id number] [place] [address] 17299- 5389 Aug, [place] [id number] [place] [address] 84941- 7768 Aug, [facility] [address] 89033- 0735 Aug, [facility] [id number] [place] [address] 58594- 8670 Aug, [facility] [address] 16073- 1766 Aug, [facility] [place] [facility] [address] [id number] [place] [address]- 8402 Aug, [facility] [place] [facility] [address] [id number] [place] 7[address] Aug, [facility] [place] [facility] [address] [id number] [place] [address]- 9811 Aug, [facility] [place] [facility] [address] [id number] [place] [address]- 5924 Aug, [facility] [place] [facility] [address] [id number] [place] [address]- 7357 Aug, [facility] [place] [facility] [address] [facility] [id number] [place] [address]- 0748 Aug, [facility] [place] [facility] [address] [facility] [id number] [place] [address]- 2294 Jul, [facility] [place] [facility] [address] [facility] [id number] [place] [address]- 1527 Jul, [facility] [place] [facility] [address] [facility] [id number] [place] [address]- 8708 May, [facility] [place] [facility] [address] [facility] [id number] [place] [address]- 7039 May, [facility] [place] [facility] [address] [facility] [id number] [place] [address]- 2370 May, [facility] [place] [facility] [address] [facility] [id number], [place] [address]- 0423 May, [facility] [place] [facility] [address] [id number], [place] [address]- 2833 Mar, [facility] [place] [facility] [address] [facility] [id number] [place] [address]- 9396 Mar, [facility] [place] [facility] [address] [facility] [id number], [place] [address]- 0223 Mar, [facility] [place] [facility] [address] [id number] [place] [address]- 9778 Mar, [facility] [place] [facility] [address] [id number] [place] [address]- 4633 Mar, [facility] [place] [facility] [address] [id number] [place] [address]- 6289 Mar, [facility] [place] [facility] [address] [id number] [place] [address]- 1964 Mar, [facility] [place] [facility] [address] [id number] [place] [address]- 0657 Mar, [facility] [place] [facility] [address] [id number] [place] [address]- 4797 Mar, [facility] [place] [facility] [address] [id number] [place] [address]- 9686 Mar, [facility] [place] [facility] [address] [id number] [place] [address]- 2463 Jan, [facility] [place] [facility] [address] [id number] [place] [address]- 4553 Jan, [facility] [place] [facility] [address] [id number] [place] [address]- 4130 Nov, [facility] [place] [facility] [address] [id number] [place] [address]- 1442 Nov, [facility] [place] [facility] [address] [id number] [place] [address]- 2776 October, [facility] [place] [facility] [address] [id number] [place] [address]- 6161 October, [facility] [place] [facility] [address] [id number] [place] [address]- 0726 October, [facility] [place] [facility] [address] [id number] [place] [address]- 8351 October, [facility] [place] [facility] [address] [id number] [place] [address]- 5178 October, [facility] [place] [facility] [address] [id number] [place] [address]- 1274 October, [facility] [place] [facility] [address] [id number] [place] [address]- 4721 October, [facility] [place] [facility] [address] [id number] [place] [address]- 7570 October, [facility] [place] [facility] [address] [id number] [place] [address]- 7012 Sep, [facility] [place] [facility] [address] [id number] [place] [address]- 9976 Sep, [facility] [place] [facility] [address] [id number] [place] [address]- 8199 Aug, [facility] [place] [facility] [address] [id number] [place] [address]- 3833 Aug, [facility] [place] [facility] [address] [id number] [place] [address]- 4151 Aug, [facility] [place] [facility] [address] [id number] [place] [address]- 2692 Aug, [facility] [place] [facility] [address] [id number] [place] [address]- 8433 May, [facility] [place] [facility] [address] [id number] [place] [address]- 9984 May, [facility] [place] [facility] [address] [id number] [place] [address]- 5320 May, [facility] [place] [facility] [address] [id number] [place] [address]- 1422 May, [facility] [place] [facility] [address] [id number] [place] [address]- 3272 May, [facility] [place] [facility] [address] [id number] [place] [address]- 0348 May, [facility] [place] [facility] [address] [id number] [place] [address]- 2546 May, [facility] [address] [id number] [place] [address]- 7363 May, [facility] [place] [facility] [address] [id number] [place] [address]- 2546 Mar, [facility] [address] [id number] [place] [address]- 2546 Mar, [facility] [place] [facility] [address] [id number] [place] [address]- 2546 Mar, [facility] [address] [id number] [place] [address] 2546 Jan, [facility] [place] [facility] [address] [id number] [place] [address] 2546 Jan, [facility] [place] [facility] [address] [id number] [place] [address]- 5754 Dec, [facility] [address] [id number] [place] [address]- 5771 Dec, [facility] [place] [facility] [address] [id number] [place] [address]- 7958 Dec, [facility] [address] [id number] [place] [address]- 9505 Sep, [facility] [place] [facility] [address] [id number] [place] [address]- 2546 28 Aug, 2012 [facility] [place] [facility] [address] [id number] [place] [address]- 2544 21 Aug, 2012 [facility] [place] [facility] [address] [id number] [place] [address]- 2546 18 Aug, 2012 [facility] [place] [facility] [address] [id number] [place] [address]- 2546 15 Aug, 2012 [facility] [place] [facility] [address] [id number] [place] [address]- 8990 14 Aug, 2012 [facility] [address] [id number] [place] [address]- 4933 11 Aug, 2012 [facility] [place] [facility] [address] [id number] [place] [address]- 1056 16 Jul, 2012 [facility] [place] [facility] [address] [id number] [place] [address]- 6469 15 Jul, 2012 [facility] [place] [facility] [address] [id number] [place] [address]- 6765 Jul, [facility] [address] [id number] [place] [address]- 8643 Jul, [facility] [place] [facility] [address] [id number] [place] [address]- 0199 Jul, [facility] [place] [facility] [address] [id number] [place] [address]- 6629 Jul, [facility] [place] [facility] [address] [id number] [place] [address]- 7003 May, [facility] [place] [facility] [address] [id number] [place] [address]- 9976 May, [facility] [place] [facility] [address] [id number], [place] [address]- 5666 May, [facility] [place] [facility] [address] [id number], [place] [address]- 6681 18 May, 2012 [facility] [place] [facility] [address] [id number], [place] [address]- 5488 15 May, 2012 [facility] [place] [facility] [address] [id number] [place] [address]- 6145 15 May, 2012 [facility] [place] [facility] [address] [id number], [place] [address]- 1940 Mar, [facility] [place] [facility] [address] [id number] [place] [address]- 6471 Mar, [facility] [place] [facility] [address] [id number] [place] [address]- 7928 Mar, [facility] [place] [facility] [address] [id number] [place] [address]- 6191 Mar, [facility] [place] [facility] [address] [id number] [place] [address]- 5086 18 Mar, 2012 [facility] [place] [facility] [address] [id number] [place] [address] 2546 Mar, [facility] [place] [facility] [address] [id number] [place] [address] 2548 Mar, [facility] [place] [facility] [address] [id number] [place] [address]- 6320 Dec, [facility] [place] [facility] [address] [id number] [place] [address]- 5277 Nov, [facility] [place] [facility] [address] [id number] [place] [address]- 9366 Sep, [facility] [place] [facility] [address] [id number] [place] [address]- 7648 Aug, [facility] [place] [facility] [address] [id number] [place] [address]- 9595 27 Aug, 2011 [facility] [place] [facility] [address] [facility] [id number] [place] [address]- 0173 Aug, [facility] [place] [facility] [address] [id number] [place] [address]- 5902 Aug, [facility] [place] [facility] [address] [id number] [place] [address]- 4903 16 Aug, 2011 [facility] [place] [facility] [address] [id number] [place] [address]- 4745 Aug, [facility] [place] [facility] [address] [facility] [id number] [place] [address]- 7434 24 Jul, 2011 [facility] [place] [facility] [address] [facility] [id number] [place] [address]- 5384 Jul, [facility] [place] [facility] [address] [id number] [place] [address]- 4170 10 Jul, 2011 [facility] [place] [facility] [address] [id number] [place] [address]- 7479 May, [facility] [place] [facility] [address] [id number] [place] [address]- 1250 May, [facility] [place] [facility] [address] [id number] [place] [address]- 4168 Mar, [facility] [place] [facility] [address] [id number] [place] [address]- 3818 Mar, [facility] [place] [facility] [address] [id number] [place] [address]- 3077 Mar, [facility] [place] [facility] [address] [id number] [place] [address]- 7986 Mar, [facility] [place] [facility] [address] [id number] [place] [address]- 9650 Dec, [facility] [place] [facility] [address] [id number] [place] [address]- 1706 May, [facility] [place] [facility] [address] [id number] [place] [address]- 1084 May, [facility] [place] [facility] [address] [id number] [place] [address]- 3681 May, [facility] [place] [facility] [address] [id number] [place] [address]- 5997 14 Mar, 2010 [facility] [place] [facility] [address] [id number] [place] 2317 14 Mar, 2010 [facility] [place] [facility] [address] [id number] [place] [address]- 7264 Jan, [facility] [place] [facility] [address] [id number] [place] [address]- 1006 18 Aug, 2009 [facility] [place] [facility] [address] [id number], [place] [address]- 0396 May, [facility] [address] [id number] [address] May, [facility] [id number] [address] May, [facility] [id number] [address] May, [facility] [id number] [address] May, [facility] [id number] [address] Mar, [facility] [id number] [place] [id number] Jul, [facility] [id number] [address] May, [facility] [id number], [place] [address] Mar, [facility] [id number], [place] [address] Sep, [facility] [id number] [address] Jul, IMMUNIZATIONS No Known Immunizations SOCIAL HISTORY Never Assessed REASON FOR VISIT Burning with urination- [place], requesting std testing, reports an odor in vaginal area, reports never having a pap smear before PLAN OF CARE Activity Details Follow Up 2 Weeks Reason:establish care VITAL SIGNS Height 66 in 2017-11-13 Weight 136 lbs 2017-11-13 Temperature 98.1 degrees Fahrenheit 2017-11-13 Heart Rate 80 bpm 2017-11-13 Respiratory Rate 20 2017-11-13 BMI 21.95 kg/m2 2017-11-13 Blood pressure systolic 115 mmHg 2017-11-13 Blood pressure diastolic 68 mmHg 2017-11-13 MEDICATIONS Medication Instructions Dosage Frequency Start Date End Date Duration Status Zofran 8 MG Orally every 8 hours, PRN 1 tablet 13 Mar, 2017 Not- Taking Diflucan 150 MG Orally once 1 tablet October, 1 dose Active Lamictal 25 MG Orally Once a day for two weeks, then 2 tablets daily 1 tablet Sep, 30 day(s) Active Paxil 10 mg Orally Once a day at bedtime 1 tablet Sep, 30 day (s) Active RESULTS No Results PROCEDURES Procedure Date Ordered Result Body Site Bacterial Vaginosis In House November 13, 2017 TRICHOMONAS ASSAY W/OPTIC November 13, 2017 CULTURE, BACTERIA, OTHER November 13, 2017 No Charge November 13, 2017 URINALYSIS, AUTO, W/O SCOPE November 13, 2017 URINE CULTURE/COLONY COUNT November 13, 2017 INSTRUCTIONS MEDICATIONS ADMINISTERED No Known [...]
--- OUTSIDE RECORDS SUMMARY | 2018-05-01 20:29 | XMS REPORT ---
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 [employer] Name Role Phone JOIE Bunn Unavailable PROBLEMS Type Condition ICD9-CM Code QXS90-UD Code Onset Dates Condition Status SNOMED Code Problem Irregular menses N92.6 Active 68478378 Problem Generalized anxiety disorder F41.1 Active 19126391 Problem Unspecified mood [affective] disorder F39 Active 065966425 Problem PCOS (polycystic ovarian syndrome) E28.2 Active 55695441 Problem IBS (irritable bowel syndrome) K58.9 Active 14747352 Problem Tobacco abuse Z72.0 Active 55877160 Problem Tobacco abuse counseling Z71.6 Active 251222346 Problem Abnormal uterine bleeding N93.9 Active 14260286635826 Problem Other chronic pain G89.29 Active 56855699 Problem History of drug dependence/abuse F19.21 Active Problem Chronic posttraumatic stress disorder F43.12 Active 807089660 Problem Bipolar II disorder F31.81 Active 99718367 Problem PTSD (post-traumatic stress disorder) F43.10 Active 53047232 ALLERGIES No Information ENCOUNTERS Encounter Location Date Diagnosis [facility] [id number] [address] Dec, [facility] [address], [place] [address] Dec, [facility] [id number] [place] [address]29- 9528 Nov, Irregular menses N92.6 ; Abnormal uterine bleeding N93.9 ; History of PCOS Z87.42 and History of unprotected sex Z72.51 [facility] [id number] [place] [address] 08172- 3498 October, [address] [facility] [id number] [place] [address] 82091- 5385 October, Low back pain M54.5 ; Dysuria R30.0 ; Other chronic pain G89.29 and Routine gynecological examination Z01.419 [facility] [facility] [id number] [place] [address] 13791- 2356 October, Dysuria R30.0 and Vaginal discharge N89.8 [place] [facility] [address] [address]- 8719 Sep, Bipolar II disorder F31.81 ; PTSD (post-traumatic stress disorder) F43.10 ; Generalized anxiety disorder F41.1 and History of drug dependence/abuse F19.21 [facility] [id number] [place] [address] 34487- 0835 Sep, Unspecified mood [affective] disorder F39 and Post- traumatic stress disorder, unspecified F43.10 [facility] [id number] [place] [address] 69216- 0362 Aug, PCOS (polycystic ovarian syndrome) E28.2 ; Recurrent major depressive disorder, in full remission F33.42 ; IBS (irritable bowel syndrome) K58.9 and Tobacco abuse Z72.0 [facility] [facility] [id number] [place] [address] 77186- 0479 Aug, Generalized anxiety disorder F41.1 and Depressive disorder, not elsewhere classified F32.9 [facility] [id number] [place] [address] 13810- 8553 Aug, PCOS (polycystic ovarian syndrome) E28.2 ; Recurrent major depressive disorder, in full remission F33.42 ; IBS (irritable bowel syndrome) K58.9 ; Tobacco abuse Z72.0 ; Tobacco abuse counseling Z71.6 ; Dysuria R30.0 ; Irregular menses N92.6 ; Vaginal candidiasis B37.3 and Acute cystitis without hematuria N30.00 [place] [address] 72204- 6921 May, [facility] [id number] [place] [address] 72609- 2565 18 Mar, 2017 Vaginal discharge N89.8 and Recurrent candidiasis of vagina B37.3 [facility] [id number] [place] [address] 68039- 6065 13 Mar, 2017 Nausea and vomiting in adult R11.2 ; Sore throat J02.9 and Diarrhea, unspecified type R19.7 [place] [id number] [place] [address] 94100- 9584 11 Mar, 2017 [place] [facility] [id number] [place] [address] 09213- 3889 14 Jan, 2017 Vaginal discharge N89.8 ; Dysuria R30.0 ; High risk sexual behavior Z72.51 ; Major depressive disorder, single episode F32.9 and Vaginal candidiasis B37.3 [place] [id number] [place] [address] 13702- 3207 03 Jan, 2017 Anxiety F41.9 [place] [id number] [place] [address] 05565- 5719 Dec, [place] [id number] [place] [address] 10549- 9410 Nov, Generalized anxiety disorder F41.1 ; Depressive disorder, not elsewhere classified F32.9 ; History of drug dependence/abuse F19.21 and 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 [address] [id number] [place] [address] 31447- 9820 19 Nov, 2016 Vaginal discharge N89.8 ; High risk sexual behavior Z72.51 ; Potential exposure to STD Z20.2 and Vaginal candidiasis B37.3 [place] [id number] [place] [address] 22178- 2618 16 Nov, 2016 History of drug dependence/abuse F19.21 and Major depressive disorder, single episode F32.9 [facility] [facility] [id number] [place] [address] 55497- 3600 Nov, Right medial knee pain M25.561 [facility] [id number] [place] [address] 08289- 3724 October, Nausea and vomiting, intractability of vomiting not specified, unspecified vomiting type R11.2 and Acute pyelonephritis N10 [facility] [id number] [place] [address] 62063- 9066 Sep, Major depressive disorder, single episode F32.9 ; Alcohol abuse F10.10 and Tobacco abuse Z72.0 [facility] [id number] [place] [address] 26237- 7255 Sep, Major depressive disorder, single episode F32.9 ; Alcohol abuse F10.10 and History of drug dependence/abuse F19.21 [address] [address] 63088- 5958 Sep, Major depressive disorder, single episode F32.9 [facility] [id number] [place] [address] 55544 -0354 Aug, Acute cystitis with hematuria N30.01 and Dysuria R30.0 [address] [address] 61216- 3806 Aug, Dysuria R30.0 ; Vaginal candidiasis B37.3 ; Vaginal discharge N89.8 and High risk sexual behavior Z72.51 [place] [id number] [place] [address] 26845- 4468 Jul, [place] [id number] [place] [address] 16825- 2385 Jul, Major depressive disorder, single episode F32.9 ; History of drug dependence/abuse F19.21 ; Alcohol abuse F10.10 and Tobacco abuse Z72.0 [facility] [address] [place] [address] [id number] May, Dental examination Z01.20 and Dental caries K02.9 [address] [address] [place] [address]- 0738 May, Fatigue, unspecified type R53.83 and Cough R05 [facility] [address] 57916- 4660 May, [facility] [address] 58897- 9176 Mar, [facility] [address] 37765- 7180 Mar, [facility] [address] 31070- 2652 Mar, [facility] [address] 17786- 3056 Mar, [facility] [address] 07121- 1899 Mar, Absence of menstruation N91.2 ; Vagina itching L29.8 ; History of drug dependence/abuse F19.21 ; History of PID Z87.42 and Acute cystitis without hematuria N30.00 [facility] [address] 77135- 5330 Sep, Routine health maintenance Z00.00 ; Late menses N91.0 ; History of drug dependence/abuse F19.21 ; Alcohol abuse F10.10 ; Tobacco abuse Z72.0 ; Tobacco abuse counseling Z71.6 and Back pain M54.9 [facility] [address] [id number] Aug, Dental examination Z01.20 and Dental caries K02.9 [facility] [address] 65486- 5422 Jul, [facility] [address] 47472- 2391 Jul, Surveillance of contraceptive injection Z30.42 [facility] [address] 27145- 3168 Jul, Routine screening for STI (sexually transmitted infection) Z11.3 ; Drug use F19.90 ; Counseling on substance use and abuse Z71.89 ; Unprotected sexual intercourse Z72.51 ; Encounter for counseling regarding contraception Z30.9 ; Vaginal discharge N89.8 and Skin lesions L98.9 [facility] [id number] [place] [address] 85126- 8823 30 May, 2015 [facility] [address] 84657- 2399 May, Yeast infection B37.9 [place] [address] 54156- 2882 19 May, 2015 Excessive and frequent menstruation with irregular cycle N92.1 ; Other fatigue R53.83 ; General counseling and advice for contraceptive management Z30.09 ; Evaluation for contraceptive injection Z30.013 ; Cough R05 ; Vaginal irritation N89.8 and Dizziness R42 [facility] [id number] [place] [address] 48693- 7879 Sep, [facility] [address] 43320- 8120 Sep, [facility] [id number] [place] [address] 22213- 6345 Aug, [facility] [id number] [place] [address] 64096- 0589 Aug, [facility] [id number] [place] [address] 17567- 0419 Aug, [facility] [id number] [place] [address] 01762- 0157 Aug, [facility] [address] 18230- 7860 Aug, [facility] [id number] [place] [address] 55888- 6378 Aug, [facility] [address] 48633- 7755 Aug, 2014 [facility] [place] [facility] [address] [id number] [place] [address]- 6579 Aug, [facility] [place] [facility] [address] [id number] [place] [address]- 1531 Aug, 2014 [facility] [place] [facility] [address] [id number] [place] [address]- 1877 Aug, [facility] [place] [facility] [address] [id number] [place] [address]- 3978 Aug, [facility] [place] [facility] [address] [id number] [place] [address]- 6634 Aug, [facility] [place] [facility] [address] [id number] [place] [address]- 6441 Jul, [facility] [place] [facility] [address] [facility] [id number] [place] [address]- 8859 Jul, [facility] [place] [facility] [address] [id number] [place] [address]- 3199 May, [facility] [place] [facility] [address] [id number] [place] [address]- 2725 May, [facility] [place] [facility] [address] [facility] [id number] [place] [address]- 2858 May, [facility] [place] [facility] [address] [id number] [place] [address]- 0389 May, [facility] [place] [facility] [address] [id number] [address]- 9734 Mar, [facility] [place] [facility] [address] [id number] [place] [address]- 5791 Mar, [facility] [place] [facility] [address] [id number] [place] [address]- 8668 Mar, [facility] [place] [facility] [address] [facility] [id number], [place] [address]- 3878 Mar, [facility] [place] [facility] [address] [id number] [place] [address]- 3396 Mar, [facility] [place] [facility] [address] [id number] [place] [address]- 8201 Mar, [facility] [place] [facility] [address] [id number] [place] [address]- 1968 Mar, [facility] [place] [facility] [address] [id number] [place] [address]- 4620 Mar, [facility] [place] [facility] [address] [id number] [place] [address]- 1377 Mar, [facility] [place] [facility] [address] [id number] [place] [address]- 0904 Mar, [facility] [place] [facility] [address] [id number] [place] [address]- 9557 Jan, [facility] [place] [facility] [address] [id number] [place] [address]- 3526 Jan, [facility] [place] [facility] [address] [id number] [place] [address]- 2641 Nov, [facility] [place] [facility] [address] [id number] [place] [address]- 0564 Nov, [facility] [place] [facility] [address] [id number] [place] [address]- 2933 October, [facility] [place] [facility] [address] [id number] [place] [address]- 7683 October, [facility] [place] [facility] [address] [id number] [place] [address]- 8855 October, [facility] [place] [facility] [address] [id number] [place] [address]- 0771 October, [facility] [place] [facility] [address] [id number] [place] [address]- 1529 October, [facility] [place] [facility] [address] [id number] [place] [address]- 7764 October, [facility] [place] [facility] [address] [id number] [place] [address]- 9298 October, [facility] [place] [facility] [address] [id number] [place] [address]- 1657 October, [facility] [place] [facility] [address] [id number] [place] [address]- 5089 Sep, [facility] [place] [facility] [address] [id number] [place] [address]- 1053 Sep, [facility] [place] [facility] [address] [id number] [place] [address]- 8207 Aug, [facility] [place] [facility] [address] [id number] [place] [address]- 4112 Aug, [facility] [place] [facility] [address] [id number] [place] [address]- 3162 Aug, [facility] [place] [facility] [address] [id number] [place] [address]- 6915 Aug, [facility] [place] [facility] [address] [id number] [place] [address]- 5828 May, [facility] [place] [facility] [address] [id number] [place] [address]- 0779 May, [facility] [place] [facility] [address] [id number] [place] [address]- 8712 May, [facility] [place] [facility] [address] [id number] [place] [address]- 4213 May, [facility] [place] [facility] [address] [id number] [place] [address]- 0040 May, [facility] [place] [facility] [address] [id number] [place] [address]- 5255 May, [facility] [place] [facility] [address] [id number] [place] [address]- 8657 May, [facility] [place] [facility] [address] [id number] [place] [address]- 2546 May, [facility] [address] [id number] [place] [address] 2546 16 Mar, 2013 [facility] [address] [id number] [place] [address]- 2546 16 Mar, 2013 [facility] [address] [id number] [place] [address]- 2546 Mar, [facility] [address] [id number] [place] [address] 2546 Jan, [facility] [address] [id number] [place] [address]- 2546 Jan, [facility] [address] [id number] [place] [address]- 6866 Dec, [facility] [address] [id number] [place] [address] 2547 Dec, [facility] [address] [id number] [place] [address]- 0993 Dec, [facility] [address] [id number] [place] [address]- 2966 Sep, [facility] [address] [id number] [place] [address]- 5383 28 Aug, 2012 [facility] [address] [id number] [place] [address]- 2546 21 Aug, 2012 [facility] [address] [id number] [place] [address]- 2546 18 Aug, 2012 [facility] [place] [facility] [address] [id number] [place] [address]- 2546 15 Aug, 2012 [facility] [address] [id number] [place] [address]- 2546 14 Aug, 2012 [facility] [address] [id number] [place] [address]- 1060 Aug, [facility] [address] [id number] [place] [address]- 3304 16 Jul, 2012 [facility] [place] [facility] [address] [id number] [place] [address]- 2912 Jul, [facility] [place] [facility] [address] [id number] [place] [address]- 4852 Jul, [facility] [place] [facility] [address] [id number] [place] [address]- 0688 Jul, [facility] [place] [facility] [address] [id number] [place] [address]- 7256 Jul, [facility] [place] [facility] [address] [id number] [place] [address]- 4740 Jul, [facility] [place] [facility] [address] [id number] [place] [address]- 6418 May, [facility] [place] [facility] [address] [id number] [place] [address]- 1178 May, [facility] [place] [facility] [address] [id number] [place] [address]- 4629 May, [facility] [place] [facility] [address] [id number] [place] [address]- 1466 May, [facility] [place] [facility] [address] [id number] [place] [address]- 0713 May, [facility] [place] [facility] [address] [id number], [place] [address]- 1901 May, [facility] [place] [facility] [address] [id number] [place] [address]- 0733 Mar, [facility] [place] [facility] [address] [id number] [place] 3033 Mar, [facility] [place] [facility] [address] [id number] [place] [address]- 3945 Mar, [facility] [place] [facility] [address] [id number] [place] [address]- 6526 Mar, [facility] [place] [facility] [address] [id number] [place] [address]- 8659 Mar, [facility] [place] [facility] [address] [id number] [place] [address]- 3026 Mar, [facility] [place] [facility] [address] [id number] [place] [address] 2546 Mar, [facility] [place] [facility] [address] [id number] [place] [address]- 5055 Dec, [facility] [place] [facility] [address] [id number] [place] [address]- 9489 Nov, [facility] [place] [facility] [address] [id number] [place] [address]- 9816 Sep, [facility] [place] [facility] [address] [id number] [place] [address]- 6965 Aug, [facility] [place] [facility] [address] [id number] [place] [address]- 3014 Aug, [facility] [place] [facility] [address] [id number] [place] [address]- 5359 Aug, [facility] [place] [facility] [address] [id number] [place] [address]- 5410 Aug, [facility] [place] [facility] [address] [id number] [place] [address]- 2219 16 Aug, 2011 [facility] [place] [facility] [address] [id number] [place] [address]- 5906 Aug, [facility] [place] [facility] [address] [id number] [place] [address]- 9040 24 Jul, 2011 [facility] [place] [facility] [address] [id number] [place] [address]- 4806 Jul, [facility] [place] [facility] [address] [id number] [place] [address]- 0955 Jul, [facility] [place] [facility] [address] [id number] [place] [address]- 7296 12 May, 2011 [facility] [place] [facility] [address] [id number] [place] [address]- 4588 04 May, 2011 [facility] [place] [facility] [address] [id number] [place] [address]- 2654 25 Mar, 2011 [facility] [place] [facility] [address] [id number] [place] [address]- 9730 24 Mar, 2011 [facility] [place] [facility] [address] [id number] [place] [address]- 2178 Mar, [facility] [place] [facility] [address] [id number] [place] [address]- 8098 10 Mar, 2011 [facility] [place] [facility] [address] [id number] [place] [address]- 1829 Dec, [facility] [place] [facility] [address] [id number] [place] [address]- 3654 14 May, 2010 [facility] [place] [facility] [address] [id number] [place] [address]- 1685 06 May, 2010 [facility] [place] [facility] [address] [id number] [place] [address]- 1367 May, [facility] [place] [facility] [address] [id number] [place] [address]- 7496 14 Mar, 2010 [facility] [place] [facility] [address] [id number] [place] [address]- 6938 14 Mar, 2010 [facility] [place] [facility] [address] [id number] [place] [address]- 3349 Jan, [facility] [place] [facility] [address] [id number] [place] [address]- 6321 18 Aug, 2009 [facility] [place] [facility] [address] [id number] [place] [address]- 0506 31 May, 2009 [facility] [place] [facility] [address] [id number] [place] [address]- 4107 May, [facility] [id number] [address]- 6621 May, [facility] [id number] [address]- 2546 May, [facility] [id number] [address]- 2546 May, [facility] [address] [address]- 2545 Mar, [facility] [address] [id number] [address] Jul, [facility] [id number] [address] May, [facility] [address] [id number] [address] Mar, [facility] [id number] [address] Sep, [facility] [address] [id number], [place] [address] Jul, IMMUNIZATIONS No Known Immunizations SOCIAL HISTORY Never Assessed REASON FOR VISIT med order PLAN OF CARE VITAL SIGNS MEDICATIONS Medication Instructions Dosage Frequency Start Date End Date Duration Status Cipro 250 MG Orally every 12 hrs 1 tablet 12h October, October, 05 days Active RESULTS No Results PROCEDURES No Known [...]
--- OUTSIDE RECORDS SUMMARY | 2018-05-01 20:30 | XMS REPORT ---
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 Name Role Phone GRIFFITHYOBANY Campa Unavailable PROBLEMS Type Condition ICD9-CM Code [id number] Code Onset Dates Condition Status SNOMED Code Problem Irregular menses N92.6 Active 20524963 Problem Generalized anxiety disorder F41.1 Active 09696562 Problem Unspecified mood [affective] disorder F39 Active 824185895 Problem PCOS (polycystic ovarian syndrome) E28.2 Active 17264811 Problem IBS (irritable bowel syndrome) K58.9 Active 39630747 Problem Tobacco abuse Z72.0 Active 66158489 Problem Tobacco abuse counseling Z71.6 Active 189701386 Problem Abnormal uterine bleeding N93.9 Active [id number] Problem Other chronic pain G89.29 Active 24841779 Problem History of drug dependence/abuse F19.21 Active Problem Chronic posttraumatic stress disorder F43.12 Active 511041186 Problem Bipolar II disorder F31.81 Active 37451423 Problem PTSD (post-traumatic stress disorder) F43.10 Active 70498031 ALLERGIES No Information ENCOUNTERS Encounter Location Date Diagnosis [facility] [id number], [place] [address] Jan, [facility] [address], [place] [address] Dec, [facility] [address], [place] [address] Dec, [facility] [id number] [place] [address] 86164- 8260 Nov, Irregular menses N92.6 ; Abnormal uterine bleeding N93.9 ; History of PCOS Z87.42 and History of unprotected sex Z72.51 [facility] [id number] [place] [address] 44363- 3927 October, [place] [id number] [place] [address] 41434- 9113 October, Low back pain M54.5 ; Dysuria R30.0 ; Other chronic pain G89.29 and Routine gynecological examination Z01.419 [place] [id number] [place] [address] 61763- 3760 October, Dysuria R30.0 and Vaginal discharge N89.8 [place] [id number] [place] [address] 84035- 6628 Sep, Bipolar II disorder F31.81 ; PTSD (post-traumatic stress disorder) F43.10 ; Generalized anxiety disorder F41.1 and History of drug dependence/abuse F19.21 [place] [id number] [place] [address] 63290- 2132 Sep, Unspecified mood [affective] disorder F39 and Post- traumatic stress disorder, unspecified F43.10 [place] [id number] [place] [address] 39562- 8295 Aug, PCOS (polycystic ovarian syndrome) E28.2 ; Recurrent major depressive disorder, in full remission F33.42 ; IBS (irritable bowel syndrome) K58.9 and Tobacco abuse Z72.0 [place] [id number] [place] [address] 29455- 3465 Aug, Generalized anxiety disorder F41.1 and Depressive disorder, not elsewhere classified F32.9 [place] [address] [place] [address] 30114- 0366 Aug, PCOS (polycystic ovarian syndrome) E28.2 ; Recurrent major depressive disorder, in full remission F33.42 ; IBS (irritable bowel syndrome) K58.9 ; Tobacco abuse Z72.0 ; Tobacco abuse counseling Z71.6 ; Dysuria R30.0 ; Irregular menses N92.6 ; Vaginal candidiasis B37.3 and Acute cystitis without hematuria N30.00 [facility] [facility] [address] [address] May, [facility] [id number] [place] [address] 02080- 6938 18 Mar, 2017 Vaginal discharge N89.8 and Recurrent candidiasis of vagina B37.3 [facility] [id number] [place] [address] 54798- 9318 13 Mar, 2017 Nausea and vomiting in adult R11.2 ; Sore throat J02.9 and Diarrhea, unspecified type R19.7 [place] [id number] [place] [address] 77269- 3439 11 Mar, 2017 [place] [id number] [place] [address] 94587- 7308 14 Jan, 2017 Vaginal discharge N89.8 ; Dysuria R30.0 ; High risk sexual behavior Z72.51 ; Major depressive disorder, single episode F32.9 and Vaginal candidiasis B37.3 [place] [id number] [place] [address] 67332- 0822 03 Jan, 2017 Anxiety F41.9 [place] [id number] [place] [address] 77550- 8740 Dec, [facility] [id number] [place] [address] 96176- 1819 Nov, Generalized anxiety disorder F41.1 ; Depressive disorder, not elsewhere classified F32.9 ; History of drug dependence/abuse F19.21 and 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 [facility] [address] [place] [address] 09854- 9471 19 Nov, 2016 Vaginal discharge N89.8 ; High risk sexual behavior Z72.51 ; Potential exposure to STD Z20.2 and Vaginal candidiasis B37.3 [facility] [address] [place] [address] 05164- 1457 16 Nov, 2016 History of drug dependence/abuse F19.21 and Major depressive disorder, single episode F32.9 [place] [id number] [place] [address] 18198- 2028 Nov, Right medial knee pain M25.561 [facility] [address] 69676- 4441 October, Nausea and vomiting, intractability of vomiting not specified, unspecified vomiting type R11.2 and Acute pyelonephritis N10 [facility] [address] 59531- 1507 Sep, Major depressive disorder, single episode F32.9 ; Alcohol abuse F10.10 and Tobacco abuse Z72.0 [place] [address] 28353- 7268 Sep, Major depressive disorder, single episode F32.9 ; Alcohol abuse F10.10 and History of drug dependence/abuse F19.21 [place] [address] 71893- 2143 Sep, Major depressive disorder, single episode F32.9 [facility] [address] 60463 -5562 Aug, Acute cystitis with hematuria N30.01 and Dysuria R30.0 [place] [id number] [place] [address] 19543- 6654 Aug, Dysuria R30.0 ; Vaginal candidiasis B37.3 ; Vaginal discharge N89.8 and High risk sexual behavior Z72.51 [place] [id number] [place] [address] 93566- 6052 Jul, [place] [id number] [place] [address] 37913- 9507 Jul, Major depressive disorder, single episode F32.9 ; History of drug dependence/abuse F19.21 ; Alcohol abuse F10.10 and Tobacco abuse Z72.0 [facility] [address] [place] [address] [id number] May, Dental examination Z01.20 and Dental caries K02.9 [facility] [id number] [place] [address] 77222- 9023 May, Fatigue, unspecified type R53.83 and Cough R05 [facility] [id number] [place] [address] 25323- 6708 May, [facility] [address] 18252- 6001 Mar, [facility] [address] 38026- 4874 Mar, [facility] [address] 72260- 7065 Mar, [facility] [address] 65461- 4845 Mar, [facility] [address] 22903- 0841 Mar, Absence of menstruation N91.2 ; Vagina itching L29.8 ; History of drug dependence/abuse F19.21 ; History of PID Z87.42 and Acute cystitis without hematuria N30.00 [facility] [id number] [place] [address] 82575- 2922 Sep, Routine health maintenance Z00.00 ; Late menses N91.0 ; History of drug dependence/abuse F19.21 ; Alcohol abuse F10.10 ; Tobacco abuse Z72.0 ; Tobacco abuse counseling Z71.6 and Back pain M54.9 [facility] [id number] [place] [address] [id number] Aug, Dental examination Z01.20 and Dental caries K02.9 [facility] [id number] [place] [address] 70989- 4945 Jul, [facility] [id number] [place] [address] 44959- 3096 Jul, Surveillance of contraceptive injection Z30.42 [facility] [address] [place] [address]- 6436 13 Jul, 2015 Routine screening for STI (sexually transmitted infection) Z11.3 ; Drug use F19.90 ; Counseling on substance use and abuse Z71.89 ; Unprotected sexual intercourse Z72.51 ; Encounter for counseling regarding contraception Z30.9 ; Vaginal discharge N89.8 and Skin lesions L98.9 [facility] [id number] [place] [address] 72498- 2672 30 May, 2015 [facility] [address] 92577- 6527 May, Yeast infection B37.[address] 29319- 4750 May, Excessive and frequent menstruation with irregular cycle N92.1 ; Other fatigue R53.83 ; General counseling and advice for contraceptive management Z30.09 ; Evaluation for contraceptive injection Z30.013 ; Cough R05 ; Vaginal irritation N89.8 and Dizziness R42 [facility] [id number] [place] [address] 29291- 4477 Sep, [facility] [address] 61323- 0348 Sep, [facility] [id number] [place] [address] 38880- 0265 Aug, [facility] [address] [place] [address] 74031- 2631 Aug, [facility] [id number] [place] [address] 18225- 5872 Aug, [facility] [address] 87412- 3616 Aug, [facility] [address] 38137- 8146 Aug, [facility] [id number] [place] [address] 81879- 8436 Aug, [facility] [place] [facility] [address] [id number] [place] [address]- 7609 Aug, 2014 [facility] [place] [facility] [address] [id number] [place] [address]- 1903 Aug, [facility] [place] [facility] [address] [id number] [place] [address]- 9462 Aug, 2014 [facility] [place] [facility] [address] [id number] [place] [address]- 8329 Aug, [facility] [place] [facility] [address] [id number] [place] [address]- 4622 Aug, [facility] [place] [facility] [address] [id number] [place] [address]- 1172 Aug, [facility] [place] [facility] [address] [facility] [id number] [place] [address]- 9884 Jul, [facility] [place] [facility] [address] [id number] [place] [address]- 4682 Jul, [facility] [place] [facility] [address] [id number] [place] [address]- 1156 May, [facility] [place] [facility] [address] [facility] [id number] [place] [address]- 0584 May, [facility] [place] [facility] [address] [facility] [id number] [place] [address]- 5936 May, [facility] [place] [facility] [address] [id number], [place] [address]- 3765 May, [facility] [place] [facility] [address] [id number] [place] [address]- 1969 Mar, [facility] [place] [facility] [address] [id number] [place] [address]- 0729 Mar, [facility] [place] [facility] [address] [id number], [place] [address]- 4734 Mar, [facility] [place] [facility] [address] [id number], [place] [address]- 0581 Mar, [facility] [place] [facility] [address] [id number] [place] [address]- 0286 Mar, [facility] [place] [facility] [address] [id number] [place] [address]- 6439 Mar, [facility] [place] [facility] [address] [id number] [place] [address]- 5548 Mar, [facility] [place] [facility] [address] [id number] [place] [address]- 1674 Mar, [facility] [place] [facility] [address] [id number] [place] [address]- 2421 Mar, [facility] [place] [facility] [address] [id number] [place] [address]- 7722 Mar, [facility] [place] [facility] [address] [id number] [place] [address]- 2418 Jan, [facility] [place] [facility] [address] [id number] [place] [address]- 9532 Jan, [facility] [place] [facility] [address] [id number] [place] [address]- 9913 Nov, [facility] [place] [facility] [address] [id number] [place] [address]- 4556 Nov, [facility] [place] [facility] [address] [id number] [place] [address]- 8285 October, [facility] [place] [facility] [address] [id number] [place] [address]- 2612 October, [facility] [place] [facility] [address] [id number] [place] 5738 October, [facility] [place] [facility] [address] [id number] [place] 6131 October, [facility] [place] [facility] [address] [id number] [place] [address]- 2150 October, [facility] [place] [facility] [address] [id number] [place] [address]- 7390 October, [facility] [place] [facility] [address] [id number] [place] [address]- 6369 October, [facility] [place] [facility] [address] [id number] [place] [address]- 9031 October, [facility] [place] [facility] [address] [id number] [place] [address]- 7162 Sep, [facility] [place] [facility] [address] [id number] [place] [address]- 6269 Sep, [facility] [place] [facility] [address] [id number] [place] [address]- 7252 Aug, [facility] [place] [facility] [address] [facility] [id number] [place] [address]- 2836 Aug, [facility] [place] [facility] [address] [id number] [place] [address]- 9541 Aug, [facility] [place] [facility] [address] [id number] [place] [address]- 7422 Aug, [facility] [place] [facility] [address] [facility] [id number] [place] [address]- 8690 May, [facility] [place] [facility] [address] [id number] [place] [address]- 8903 May, [facility] [place] [facility] [address] [id number] [place] [address]- 0790 May, [facility] [place] [facility] [address] [id number] [place] [address]- 6726 May, [facility] [place] [facility] [address] [id number] [place] [address]- 6823 May, [facility] [place] [facility] [address] [id number] [place] [address]- 1813 May, [facility] [place] [facility] [address] [id number] [place] [address]- 4619 May, [facility] [place] [facility] [address] [id number] [place] [address]- 9796 May, [facility] [place] [facility] [address] [id number] [place] [address]- 2546 Mar, [facility] [place] [facility] [address] [id number] [place] [address] 2546 Mar, [facility] [place] [facility] [address] [id number] [place] [address] 2545 Mar, [facility] [place] [facility] [address] [id number] [place] [address]- 9746 Jan, [facility] [place] [facility] [address] [id number] [place] [address]- 7016 Jan, [facility] [place] [facility] [address] [id number] [place] [address]- 2409 Dec, [facility] [place] [facility] [address] [id number] [place] [address]- 4242 Dec, [facility] [place] [facility] [address] [id number] [place] [address]- 0546 Dec, [facility] [place] [facility] [address] [id number] [place] [address]- 4097 Sep, [facility] [place] [facility] [address] [id number] [place] [address]- 2863 28 Aug, 2012 [facility] [place] [facility] [address] [id number], [place] [address] 2542 21 Aug, 2012 [facility] [place] [facility] [address] [id number] [place] [address] 2542 18 Aug, 2012 [facility] [place] [facility] [address] [id number] [place] [address] 2548 15 Aug, 2012 [facility] [place] [facility] [address] [id number] [place] [address] 2547 14 Aug, 2012 [facility] [place] [facility] [address] [id number] [place] [address]- 7775 Aug, [facility] [address] [id number] [place] [address]- 1069 16 Jul, 2012 [facility] [address] [id number] [place] [address]- 9933 15 Jul, 2012 [facility] [address] [id number] [place] [address]- 4683 Jul, [facility] [address] [id number] [place] [address]- 5821 Jul, [facility] [address] [id number] [place] [address]- 8739 Jul, [facility] [address] [id number] [place] [address]- 9914 Jul, [facility] [address] [id number] [place] [address]- 6308 May, [facility] [address] [id number] [place] [address]- 1280 May, [facility] [address] [id number] [place] [address]- 2381 May, [facility] [address] [id number] [place] [address]- 1942 18 May, 2012 [facility] [address] [id number] [place] [address]- 7120 15 May, 2012 [facility] [address] [id number] [place] [address]- 0803 15 May, 2012 [facility] [address] [id number] [place] [address]- 6443 Mar, [facility] [address] [id number] [place] [address]- 2211 Mar, [facility] [address] [id number] [place] [address]- 4047 Mar, [facility] [place] [facility] [address] [id number] [place] [address]- 8745 Mar, [facility] [place] [facility] [address] [id number] [place] [address]- 2246 Mar, [facility] [place] [facility] [address] [id number] [place] [address] 2546 Mar, [facility] [place] [facility] [address] [id number] [place] [address] 2546 Mar, [facility] [place] [facility] [address] [id number] [place] [address]- 7081 Dec, [facility] [place] [facility] [address] [id number] [place] [address]- 1906 Nov, [facility] [place] [facility] [address] [id number] [place] [address]- 0294 Sep, [facility] [place] [facility] [address] [id number] [place] [address]- 1123 Aug, [facility] [place] [facility] [address] [id number] [place] [address]- 1638 Aug, [facility] [place] [facility] [address] [id number] [place] [address]- 6254 Aug, [facility] [place] [facility] [address] [id number] [place] [address]- 7833 Aug, [facility] [place] [facility] [address] [id number] [place] [address]- 1584 16 Aug, 2011 [facility] [place] [facility] [address] [id number] [place] [address]- 9771 Aug, [facility] [place] [facility] [address] [id number] [place] [address]- 5286 Jul, [facility] [place] [facility] [address] [id number] [place] [address] 2546 Jul, [facility] [place] [facility] [address] [id number], [place] [address]- 1975 10 Jul, 2011 [facility] [place] [facility] [address] [id number] [place] [address]- 3461 May, [facility] [place] [facility] [address] [id number] [place] [address]- 0199 May, [facility] [place] [facility] [address] [id number] [place] [address]- 7028 Mar, [facility] [place] [facility] [address] [id number] [place] [address]- 2567 24 Mar, 2011 [facility] [place] [facility] [address] [id number] [place] [address]- 7445 Mar, [facility] [place] [facility] [address] [id number] [place] [address]- 2267 Mar, [facility] [place] [facility] [address] [id number] [place] [address]- 2423 Dec, [facility] [place] [facility] [address] [id number] [place] [address]- 9537 14 May, 2010 [facility] [place] [facility] [address] [id number] [place] [address]- 5979 May, [facility] [place] [facility] [address] [id number] [place] [address] May, [facility] [place] [facility] [address] [id number] [place] [address] 14 Mar, 2010 [facility] [place] [facility] [address] [id number] [place] [address] 14 Mar, 2010 [facility] [place] [facility] [address] [id number] [place] [address] Jan, [facility] [place] [facility] [address] [id number] [place] [address] 18 Aug, 2009 [facility] [place] [facility] [address] [id number] [place] [address] May, [facility] [place] [facility] [id number] [address] May, [facility] [address] [id number] [address] 16 May, 2009 [facility] [id number], [place] [address] 16 May, 2009 [facility] [id number], [place] [address] May, [facility] [id number], [place] [address] Mar, [facility] [id number], [place] [address] Jul, [facility] [address], [place] [address] 14 May, 2006 [facility] [address], [place] [address] Mar, [facility] [address] [id number] [address] Sep, [facility] [address] [id number] [address] Jul, IMMUNIZATIONS No Known Immunizations SOCIAL HISTORY Never Assessed REASON FOR VISIT Lab (walk-in) PLAN OF CARE VITAL SIGNS MEDICATIONS Unknown Medications RESULTS No Results PROCEDURES Procedure Date Ordered Result Body Site MICROSOMAL ANTIBODY September 20, 2017 THYROGLOBULIN ANTIBODY September 20, 2017 VENIPUNCT, ROUTINE* September 20, 2017 COMPREHEN METABOLIC PANEL September 20, 2017 LIPID PANEL September 20, 2017 ASSAY OF INSULIN September 20, 2017 COMPLETE CBC W/AUTO DIFF WBC September 20, 2017 INSTRUCTIONS MEDICATIONS ADMINISTERED No Known Medications [...]
--- OUTSIDE RECORDS SUMMARY | 2018-05-01 20:30 | XMS REPORT ---
Author Author ENOC NAGY [facility] Address [address] [place] [address] Care Team Providers Care [employer] Name Role Phone ENOC NAGY Unavailable PROBLEMS Type Condition ICD9-CM Code LAI91-WM Code Onset Dates Condition Status SNOMED Code Problem Irregular menses N92.6 Active 85601984 Problem Generalized anxiety disorder F41.1 Active 81212037 Problem Unspecified mood [affective] disorder F39 Active 220469946 Problem PCOS (polycystic ovarian syndrome) E28.2 Active 93471912 Problem IBS (irritable bowel syndrome) K58.9 Active 30193883 Problem Tobacco abuse Z72.0 Active 25847841 Problem Tobacco abuse counseling Z71.6 Active 580497696 Problem Abnormal uterine bleeding N93.9 Active [id number] Problem Other chronic pain G89.29 Active 87134579 Problem History of drug dependence/abuse F19.21 Active Problem Chronic posttraumatic stress disorder F43.12 Active 837510760 Problem Bipolar II disorder F31.81 Active 36858588 Problem PTSD (post-traumatic stress disorder) F43.10 Active 49141909 ALLERGIES No Known Allergies ENCOUNTERS Encounter Location Date Diagnosis [facility] [id number] [address] Jan, [facility] [id number] [address] Dec, [facility] [id number] [place] [address] 61234- 2029 Dec, [facility] [id number] [place] [address] 29405- 5624 Nov, Irregular menses N92.6 ; Abnormal uterine bleeding N93.9 ; History of PCOS Z87.42 and History of unprotected sex Z72.51 [facility] [id number] [place] [address] 56115- 1906 October, [facility] [address] [address]- [address]85 October, Low back pain M54.5 ; Dysuria R30.0 ; Other chronic pain G89.29 and Routine gynecological examination Z01.419 [facility] [id number] [place] [address] 83004- 6997 October, Dysuria R30.0 and Vaginal discharge N89.8 [facility] [id number] [place] [address] 52888- 3465 Sep, Bipolar II disorder F31.81 ; PTSD (post-traumatic stress disorder) F43.10 ; Generalized anxiety disorder F41.1 and History of drug dependence/abuse F19.21 [facility] [id number] [place] [address] 20982- 8748 Sep, Unspecified mood [affective] disorder F39 and Post- traumatic stress disorder, unspecified F43.10 [facility] [id number] [place] [address] 48870- 0670 Aug, PCOS (polycystic ovarian syndrome) E28.2 ; Recurrent major depressive disorder, in full remission F33.42 ; IBS (irritable bowel syndrome) K58.9 and Tobacco abuse Z72.0 [facility] [id number] [place] [address] 12047- 2797 Aug, Generalized anxiety disorder F41.1 and Depressive disorder, not elsewhere classified F32.9 [facility] [id number] [place] [address] 05531- 2421 Aug, PCOS (polycystic ovarian syndrome) E28.2 ; Recurrent major depressive disorder, in full remission F33.42 ; IBS (irritable bowel syndrome) K58.9 ; Tobacco abuse Z72.0 ; Tobacco abuse counseling Z71.6 ; Dysuria R30.0 ; Irregular menses N92.6 ; Vaginal candidiasis B37.3 and Acute cystitis without hematuria N30.00 [facility] [address] [address] May, [facility] [id number] [place] [address] 04549- 2459 18 Mar, 2017 Vaginal discharge N89.8 and Recurrent candidiasis of vagina B37.3 [facility] [id number] [place] [address] 85412- 4845 13 Mar, 2017 Nausea and vomiting in adult R11.2 ; Sore throat J02.9 and Diarrhea, unspecified type R19.7 [facility] [address] [place] [address] 69555- 5767 11 Mar, 2017 [facility] [id number] [place] [address] 06328- 1247 14 Jan, 2017 Vaginal discharge N89.8 ; Dysuria R30.0 ; High risk sexual behavior Z72.51 ; Major depressive disorder, single episode F32.9 and Vaginal candidiasis B37.3 [facility] [id number] [place] [address] 00696- 9560 Jan, Anxiety F41.9 [facility] [id number] [place] [address] 91401- 8602 Dec, [facility] [address] [place] [address] 27041- 4671 Nov, Generalized anxiety disorder F41.1 ; Depressive disorder, not elsewhere classified F32.9 ; History of drug dependence/abuse F19.21 and 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 [facility] [address] [place] [address] 80868- 1032 19 Nov, 2016 Vaginal discharge N89.8 ; High risk sexual behavior Z72.51 ; Potential exposure to STD Z20.2 and Vaginal candidiasis B37.3 [facility] [address] [place] [address] 55942- 1792 16 Nov, 2016 History of drug dependence/abuse F19.21 and Major depressive disorder, single episode F32.9 [facility] [id number] [place] [address] 82315- 8022 Nov, Right medial knee pain M25.561 [facility] [id number] [place] [address] 26502- 6872 October, Nausea and vomiting, intractability of vomiting not specified, unspecified vomiting type R11.2 and Acute pyelonephritis N10 [facility] [address] 41774- 5570 Sep, Major depressive disorder, single episode F32.9 ; Alcohol abuse F10.10 and Tobacco abuse Z72.0 [facility] [address] 58444- 0837 Sep, Major depressive disorder, single episode F32.9 ; Alcohol abuse F10.10 and History of drug dependence/abuse F19.21 [facility] [address] 90755- 2908 Sep, Major depressive disorder, single episode F32.9 [facility] [id number] [place] [address] 68598 -7307 Aug, Acute cystitis with hematuria N30.01 and Dysuria R30.0 [facility] [id number] [place] [address] 21552- 9780 Aug, Dysuria R30.0 ; Vaginal candidiasis B37.3 ; Vaginal discharge N89.8 and High risk sexual behavior Z72.51 [facility] [id number] [place] [address] 82038- 9804 Jul, [facility] [address] 22362- 0397 Jul, Major depressive disorder, single episode F32.9 ; History of drug dependence/abuse F19.21 ; Alcohol abuse F10.10 and Tobacco abuse Z72.0 [facility] [address] [place] [address] [id number] May, Dental examination Z01.20 and Dental caries K02.9 [facility] [address] [place] [address] 37361- 1226 May, Fatigue, unspecified type R53.83 and Cough R05 [facility] [id number] [place] [address] 15619- 3309 May, [facility] [address] 09752- 0435 Mar, [facility] [id number] [place] [address] 95734- 3137 Mar, [facility] [address] 11966- 0797 Mar, [facility] [id number] [place] [address] 89787- 8332 Mar, [facility] [address] 88880- 8762 Mar, Absence of menstruation N91.2 ; Vagina itching L29.8 ; History of drug dependence/abuse F19.21 ; History of PID Z87.42 and Acute cystitis without hematuria N30.00 [facility] [id number] [place] [address] 82662- 1729 Sep, Routine health maintenance Z00.00 ; Late menses N91.0 ; History of drug dependence/abuse F19.21 ; Alcohol abuse F10.10 ; Tobacco abuse Z72.0 ; Tobacco abuse counseling Z71.6 and Back pain M54.9 [facility] [address] [place] [address] [id number] Aug, Dental examination Z01.20 and Dental caries K02.9 [facility] [id number] [place] [address] 82379- 2429 Jul, [facility] [id number] [place] [address] 27106- 4591 Jul, Surveillance of contraceptive injection Z30.42 [facility] [id number] [place] [address] 90384- 3785 13 Jul, 2015 Routine screening for STI (sexually transmitted infection) Z11.3 ; Drug use F19.90 ; Counseling on substance use and abuse Z71.89 ; Unprotected sexual intercourse Z72.51 ; Encounter for counseling regarding contraception Z30.9 ; Vaginal discharge N89.8 and Skin lesions L98.9 [facility] [address] 27086- 6823 30 May, 2015 [facility] [address] 91287- 3544 May, Yeast infection B37.[address] 03433- 5363 May, Excessive and frequent menstruation with irregular cycle N92.1 ; Other fatigue R53.83 ; General counseling and advice for contraceptive management Z30.09 ; Evaluation for contraceptive injection Z30.013 ; Cough R05 ; Vaginal irritation N89.8 and Dizziness R42 [facility] [id number] [place] [address] 09792- 4567 Sep, [facility] [address] 98247- 7976 Sep, [facility] [id number] [place] [address] 29121- 3437 23 Aug, 2014 [facility] [id number] [place] [address] 49032- 5242 Aug, [facility] [id number] [place] [address] 37034- 2653 Aug, [facility] [address] 37824- 6707 Aug, [facility] [id number] [place] [address] [id number]- 2898 Aug, [facility] [id number] [place] [address] 46013- 7486 Aug, [facility] [place] [facility] [address] [id number] [place] [address]- 3359 Aug, [facility] [place] [facility] [address] [id number] [place] [address]- 8875 Aug, [facility] [place] [facility] [address] [id number] [place] [address]- 9789 Aug, [facility] [place] [facility] [address] [id number] [place] [address]- 1140 Aug, [facility] [place] [facility] [address] [id number] [place] [address]- 1460 Aug, [facility] [place] [facility] [address] [id number] [place] [address]- 4018 Aug, [facility] [place] [facility] [address] [id number] [place] [address]- 2835 Jul, [facility] [place] [facility] [address] [id number] [place] [address]- 3191 Jul, [facility] [place] [facility] [address] [id number] [place] [address]- 7837 May, [facility] [place] [facility] [address] [id number] [place] [address]- 7717 May, [facility] [place] [facility] [address] [id number] [address]- 5862 May, [facility] [place] [facility] [address] [id number], [place] [address]- 5586 May, [facility] [place] [facility] [address] [id number] [place] [address]- 3463 Mar, [facility] [place] [facility] [address] [id number] [address]- 3200 Mar, [facility] [place] [facility] [address] [id number] [place] [address]- 6381 Mar, [facility] [place] [facility] [address] [id number] [place] [address]- 0839 Mar, [facility] [place] [facility] [address] [id number] [place] [address]- 3578 Mar, [facility] [place] [facility] [address] [id number] [place] Mar, [facility] [place] [facility] [address] [id number] [place] [address]- 3644 Mar, [facility] [place] [facility] [address] [id number] [place] [address]- 5652 Mar, [facility] [place] [facility] [address] [id number] [place] [address]- 1469 Mar, [facility] [place] [facility] [address] [id number] [place] [address]- 7214 Mar, [facility] [place] [facility] [address] [id number] [place] [address]- 3973 Jan, [facility] [place] [facility] [address] [id number] [place] [address]- 2497 Jan, [facility] [place] [facility] [address] [id number] [place] [address]- 6607 Nov, [facility] [place] [facility] [address] [id number] [place] [address]- 4988 Nov, [facility] [place] [facility] [address] [id number] [place] [address]- 1718 October, [facility] [place] [facility] [address] [id number] [place] [address]- 9500 October, [facility] [place] [facility] [address] [id number] [place] [address]- 3728 October, [facility] [place] [facility] [address] [id number] [place] [address]- 0628 October, [facility] [place] [facility] [address] [id number] [place] [address]- 9317 October, [facility] [place] [facility] [address] [id number] [place] [address]- 6992 October, [facility] [place] [facility] [address] [id number] [place] [address]- 2347 October, [facility] [place] [facility] [address] [id number] [place] [address]- 7267 October, [facility] [place] [facility] [address] [id number] [place] [address]- 7211 Sep, [facility] [place] [facility] [address] [id number] [place] [address]- 8499 Sep, [facility] [place] [facility] [address] [id number] [place] [address]- 4763 Aug, [facility] [place] [facility] [address] [id number] [place] [address]- 0174 Aug, [facility] [place] [facility] [address] [id number] [place] [address]- 3286 Aug, [facility] [place] [facility] [address] [id number] [place] [address]- 7559 Aug, [facility] [place] [facility] [address] [id number] [place] [address]- 6064 May, [facility] [place] [facility] [address] [id number] [place] [address]- 8376 May, [facility] [place] [facility] [address] [id number] [place] [address]- 8447 May, [facility] [place] [facility] [address] [id number] [place] [address]- 5462 May, [facility] [place] [facility] [address] [id number] [place] [address]- 6431 May, [facility] [place] [facility] [address] [id number] [place] [address]- 7068 May, [facility] [place] [facility] [address] [id number] [place] [address]- 3224 May, [facility] [address] [id number] [place] [address]- 0806 May, [facility] [place] [facility] [address] [id number] [place] [address]- 1462 Mar, [facility] [place] [facility] [address] [id number] [place] [address]- 6014 Mar, [facility] [place] [facility] [address] [id number] [place] [address]- 1146 Mar, [facility] [place] [facility] [address] [id number] [place] [address]- 5305 Jan, [facility] [place] [facility] [address] [id number] [place] [address]- 8012 Jan, [facility] [address] [id number] [place] [address]- 2131 Dec, [facility] [place] [facility] [address] [id number] [place] [address]- 0903 Dec, [facility] [place] [facility] [address] [id number] [place] [address]- 0823 Dec, [facility] [place] [facility] [address] [facility] [id number] [place] [address]- 3491 Sep, [facility] [place] [facility] [address] [id number] [place] [address]- 6692 28 Aug, 2012 [facility] [place] [facility] [address] [id number] [place] [address]- 5119 21 Aug, 2012 [facility] [place] [facility] [address] [id number] [place] [address]- 0335 18 Aug, 2012 [facility] [place] [facility] [address] [id number] [place] [address]- 6126 15 Aug, 2012 [facility] [place] [facility] [address] [id number] [place] [address]- 6705 14 Aug, 2012 [facility] [place] [facility] [address] [id number] [place] [address]- 6993 Aug, [facility] [address] [id number] [place] [address]- 8943 16 Jul, 2012 [facility] [place] [facility] [address] [id number] [place] [address]- 5766 15 Jul, 2012 [facility] [place] [facility] [address] [id number] [place] [address]- 4496 Jul, [facility] [place] [facility] [address] [id number] [place] [address]- 5081 Jul, [facility] [place] [facility] [address] [id number] [place] [address]- 4048 Jul, [facility] [place] [facility] [address] [id number] [place] [address]- 3831 Jul, [facility] [place] [facility] [address] [id number] [place] [address]- 1288 May, [facility] [place] [facility] [address] [id number] [place] [address]- 1222 May, [facility] [place] [facility] [address] [id number] [place] [address]- 7612 May, [facility] [place] [facility] [address] [id number] [place] 8354 18 May, 2012 [facility] [place] [facility] [address] [id number] [place] [address]- 0919 15 May, 2012 [facility] [place] [facility] [address] [id number] [place] [address]- 5998 15 May, 2012 [facility] [place] [facility] [address] [id number] [place] [address]- 7551 Mar, [facility] [place] [facility] [address] [id number] [place] [address]- 4216 Mar, [facility] [place] [facility] [address] [id number] [place] [address]- 2185 Mar, [facility] [place] [facility] [address] [id number] [place] [address]- 9838 Mar, [facility] [place] [facility] [address] [id number] [place] [address]- 9560 Mar, [facility] [place] [facility] [address] [id number] [place] [address]- 0569 Mar, [facility] [place] [facility] [address] [id number] [place] [address]- 2633 Mar, [facility] [place] [facility] [address] [id number] [place] [address]- 7645 Dec, [facility] [place] [facility] [address] [id number] [place] [address]- 6625 Nov, [facility] [place] [facility] [address] [id number] [place] [address]- 9730 Sep, [facility] [place] [facility] [address] [id number] [place] [address]- 3418 Aug, [facility] [place] [facility] [address] [id number] [place] [address]- 5749 Aug, [facility] [place] [facility] [address] [id number] [place] [address]- 8298 Aug, [facility] [place] [facility] [address] [id number] [place] [address]- 5458 Aug, [facility] [place] [facility] [address] [id number], [place] [address]- 0481 16 Aug, 2011 [facility] [place] [facility] [address] [id number] [place] [address]- 3961 Aug, [facility] [place] [facility] [address] [id number] [place] [address]- 9595 Jul, [facility] [place] [facility] [address] [id number] [place] [address]- 1190 Jul, [facility] [place] [facility] [address] [id number] [place] [address]- 5884 10 Jul, 2011 [facility] [place] [facility] [address] [id number] [place] [address]- 6657 12 May, 2011 [facility] [place] [facility] [address] [id number] [place] [address]- 0503 04 May, 2011 [facility] [place] [facility] [address] [id number] [place] [address]- 1702 25 Mar, 2011 [facility] [place] [facility] [address] [id number] [place] [address]- 8732 24 Mar, 2011 [facility] [place] [facility] [address] [id number] [place] [address]- 5602 10 Mar, 2011 [facility] [place] [facility] [address] [id number] [place] [address]- 8224 10 Mar, 2011 [facility] [place] [facility] [address] [id number] [place] [address]- 0419 Dec, [facility] [place] [facility] [address] [id number] [place] [address]- 6868 14 May, 2010 [facility] [place] [facility] [address] [id number] [place] [address]- 6456 06 May, 2010 [facility] [place] [facility] [address] [id number] [place] [address]- 0554 May, [facility] [place] [facility] [address] [id number] [place] [address]- 8661 14 Mar, 2010 [facility] [place] [facility] [address] [id number] [place] [address] 14 Mar, 2010 [facility] [place] [facility] [address] [id number] [place] [address] Jan, [facility] [place] [facility] [address] [id number] [place] [address] 18 Aug, 2009 [facility] [place] [facility] [address] [id number] [place] [address] May, [facility] [id number] [address] May, [facility] [id number] [address] May, [facility] [id number] [address] May, [facility] [id number] [address] May, [facility] [id number] [address] Mar, [facility] [id number] [address] Jul, [facility] [id number] [address] May, [facility] [id number] [address] Mar, [facility] [id number] [address] Sep, [facility] [id number] [address] Jul, IMMUNIZATIONS No Known Immunizations SOCIAL HISTORY Never Assessed REASON FOR VISIT intake PLAN OF CARE Activity Details Follow Up 2 Weeks Reason: VITAL SIGNS MEDICATIONS Medication Instructions Dosage Frequency Start Date End Date Duration Status Zoloft 25 MG Orally Once a day 1 tablet 24h 90 days Active Zofran 8 MG Orally every 8 hours, PRN 1 tablet 13 Mar, 2017 Not- Taking RESULTS No Results PROCEDURES Procedure Date Ordered Result Body Site Psych diagnostic evaluation, established patient October 08, 2017 INSTRUCTIONS MEDICATIONS ADMINISTERED No Known Medications [...]
--- OUTSIDE RECORDS SUMMARY | 2018-05-01 20:31 | XMS REPORT ---
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 Name Role Phone NATHALIA Beck Unavailable PROBLEMS Type Condition ICD9-CM Code YBD25-LN Code Onset Dates Condition Status SNOMED Code Problem Irregular menses N92.6 Active 54874055 Problem Generalized anxiety disorder F41.1 Active 08373319 Problem Unspecified mood [affective] disorder F39 Active 417457097 Problem PCOS (polycystic ovarian syndrome) E28.2 Active 01630065 Problem IBS (irritable bowel syndrome) K58.9 Active 71483354 Problem Tobacco abuse Z72.0 Active 95641008 Problem Tobacco abuse counseling Z71.6 Active 308694093 Problem Abnormal uterine bleeding N93.9 Active 38828645828693 Problem Other chronic pain G89.29 Active 30576877 Problem History of drug dependence/abuse F19.21 Active Problem Chronic posttraumatic stress disorder F43.12 Active 050326427 Problem Bipolar II disorder F31.81 Active 75437912 Problem PTSD (post-traumatic stress disorder) F43.10 Active 72031894 ALLERGIES No Information ENCOUNTERS Encounter Location Date Diagnosis [place] [address], [place] [address] Jan, [facility] [address], [place] [address] Dec, [place] [id number] [place] [address] 32121- 7427 Dec, [place] [id number] [place] [address] 21178- 4386 Nov, Irregular menses N92.6 ; Abnormal uterine bleeding N93.9 ; History of PCOS Z87.42 and History of unprotected sex Z72.51 [place] [address] [place] [id number] [place] [address] 96758- 4789 October, [place] [address] [address] October, Low back pain M54.5 ; Dysuria R30.0 ; Other chronic pain G89.29 and Routine gynecological examination Z01.419 [place] [address] [place] [id number] [place] [address] 97004- 8668 October, Dysuria R30.0 and Vaginal discharge N89.8 [place] [address] [place] [id number] [place] [address] 86390- 9937 Sep, Bipolar II disorder F31.81 ; PTSD (post-traumatic stress disorder) F43.10 ; Generalized anxiety disorder F41.1 and History of drug dependence/abuse F19.21 [place] [address] [place] [id number] [place] [address] 69764- 9088 Sep, Unspecified mood [affective] disorder F39 and Post- traumatic stress disorder, unspecified F43.10 [place] [address] [place] [address] [id number] [place] [address] 52288- 4439 Aug, PCOS (polycystic ovarian syndrome) E28.2 ; Recurrent major depressive disorder, in full remission F33.42 ; IBS (irritable bowel syndrome) K58.9 and Tobacco abuse Z72.0 [place] [address] [place] [id number] [place] [address] 95092- 6149 Aug, Generalized anxiety disorder F41.1 and Depressive disorder, not elsewhere classified F32.9 [place] [address] [place] [address] [id number] [place] [address] 20807- 5794 Aug, PCOS (polycystic ovarian syndrome) E28.2 ; Recurrent major depressive disorder, in full remission F33.42 ; IBS (irritable bowel syndrome) K58.9 ; Tobacco abuse Z72.0 ; Tobacco abuse counseling Z71.6 ; Dysuria R30.0 ; Irregular menses N92.6 ; Vaginal candidiasis B37.3 and Acute cystitis without hematuria N30.00 [place] [address], [place] [address] May, [facility] [id number] [place] [address] 67594- 0817 18 Mar, 2017 Vaginal discharge N89.8 and Recurrent candidiasis of vagina B37.3 [facility] [id number] [place] [address] 55319- 3174 13 Mar, 2017 Nausea and vomiting in adult R11.2 ; Sore throat J02.9 and Diarrhea, unspecified type R19.7 [facility] [address] [place] [id number] [place] [address] 38149- 3221 11 Mar, 2017 [facility] [id number] [place] [address] 19834- 1851 14 Jan, 2017 Vaginal discharge N89.8 ; Dysuria R30.0 ; High risk sexual behavior Z72.51 ; Major depressive disorder, single episode F32.9 and Vaginal candidiasis B37.3 [facility] [id number] [place] [address] 67686- 9980 03 Jan, 2017 Anxiety F41.9 [facility] [address] [place] [address] [id number] [place] [address] 71639- 3563 Dec, [facility] [id number] [place] [address] 17787- 2653 Nov, Generalized anxiety disorder F41.1 ; Depressive disorder, not elsewhere classified F32.9 ; History of drug dependence/abuse F19.21 and 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 [facility] [address], [place] [address]- 2827 19 Nov, 2016 Vaginal discharge N89.8 ; High risk sexual behavior Z72.51 ; Potential exposure to STD Z20.2 and Vaginal candidiasis B37.3 [facility] [address], [place] [address]- 6693 16 Nov, 2016 History of drug dependence/abuse F19.21 and Major depressive disorder, single episode F32.9 [facility] [address] [place] [address] 65778- 7797 Nov, Right medial knee pain M25.561 [facility] [address] [place] [id number] [place] [address] 04126- 2746 October, Nausea and vomiting, intractability of vomiting not specified, unspecified vomiting type R11.2 and Acute pyelonephritis N10 [facility] [address] [place] [address] [id number] [place] [address] 52078- 7288 Sep, Major depressive disorder, single episode F32.9 ; Alcohol abuse F10.10 and Tobacco abuse Z72.0 [place] [address] 75753- 7630 Sep, Major depressive disorder, single episode F32.9 ; Alcohol abuse F10.10 and History of drug dependence/abuse F19.21 [place] [address] [place] [address] [id number] [place] [address] 35610- 9705 Sep, Major depressive disorder, single episode F32.9 [facility] [address] [id number] [place] [address] 35458 -4123 Aug, Acute cystitis with hematuria N30.01 and Dysuria R30.0 [facility] [address] [place] [id number] [place] [address] 27095- 6405 Aug, Dysuria R30.0 ; Vaginal candidiasis B37.3 ; Vaginal discharge N89.8 and High risk sexual behavior Z72.51 [place] [address] [place] [address] 90842- 6271 Jul, [place] [address] 00974- 2328 Jul, Major depressive disorder, single episode F32.9 ; History of drug dependence/abuse F19.21 ; Alcohol abuse F10.10 and Tobacco abuse Z72.0 [facility] [address] [place] [address] [id number] May, Dental examination Z01.20 and Dental caries K02.9 [facility] [address] [place] [id number] [place] [address] 30906- 6909 May, Fatigue, unspecified type R53.83 and Cough R05 [facility] [address] [place] [id number] [place] [address] 21343- 1386 May, [facility] [address] 53076- 1697 Mar, [facility] [address] 81369- 5652 Mar, [place] [address] 52482- 2485 Mar, [facility] [address] 64166- 1123 Mar, [place] [address] 60868- 6092 Mar, Absence of menstruation N91.2 ; Vagina itching L29.8 ; History of drug dependence/abuse F19.21 ; History of PID Z87.42 and Acute cystitis without hematuria N30.00 [place] [address] [place] [address] [id number] [place] [address] 17340- 4713 Sep, Routine health maintenance Z00.00 ; Late menses N91.0 ; History of drug dependence/abuse F19.21 ; Alcohol abuse F10.10 ; Tobacco abuse Z72.0 ; Tobacco abuse counseling Z71.6 and Back pain M54.9 [facility] [address] [place] [address] [id number] Aug, Dental examination Z01.20 and Dental caries K02.9 [place] [address] [place] [id number] [place] [address] 36435- 5162 Jul, [place] [address] 64863- 6964 Jul, Surveillance of contraceptive injection Z30.42 [facility] [address] [place] [id number] [place] [address] 21284- 7050 13 Jul, 2015 Routine screening for STI (sexually transmitted infection) Z11.3 ; Drug use F19.90 ; Counseling on substance use and abuse Z71.89 ; Unprotected sexual intercourse Z72.51 ; Encounter for counseling regarding contraception Z30.9 ; Vaginal discharge N89.8 and Skin lesions L98.9 [place] [address] 85454- 3218 30 May, 2015 [place] [address] 47353- 4377 May, Yeast infection B37.[address] 37758- 4862 May, Excessive and frequent menstruation with irregular cycle N92.1 ; Other fatigue R53.83 ; General counseling and advice for contraceptive management Z30.09 ; Evaluation for contraceptive injection Z30.013 ; Cough R05 ; Vaginal irritation N89.8 and Dizziness R42 [place] [address] [place] [id number] [place] [address] 49921- 5351 Sep, [place] [address] 38301- 9164 Sep, [place] [address] [place] [id number] [place] [address] 39333- 4310 23 Aug, 2014 [facility] [address] [place] [id number] [place] [address] 95908- 7895 Aug, [facility] [address] [place] [id number] [place] [address] 89367- 7479 Aug, [place] [address] 25562- 8625 Aug, [facility] [address] [place] [id number] [place] [address] 67006- 2376 Aug, [place] [address] 23089- 8302 Aug, [facility] [place] [facility] [address] [id number] [place] [address]- 1468 Aug, [facility] [place] [facility] [address] [id number] [place] [address]- 8022 Aug, [facility] [place] [facility] [address] [id number] [place] [address]- 2640 Aug, [facility] [place] [facility] [address] [id number] [place] [address]- 1300 Aug, [facility] [place] [facility] [address] [id number] [place] [address]- 7478 Aug, [facility] [place] [facility] [address] [id number] [place] [address]- 7964 Aug, [facility] [place] [facility] [address] [id number] [place] [address]- 4115 Jul, [facility] [place] [facility] [address] [id number], [place] [address]- 6310 Jul, [facility] [place] [facility] [address] [id number] [place] [address]- 0084 May, [facility] [place] [facility] [address] [id number] [place] [address]- 9201 May, [facility] [place] [facility] [address] [id number], [place] [address]- 3983 May, [facility] [place] [facility] [address] [id number], [place] [address]- 3521 May, [facility] [place] [facility] [address] [id number] [place] [address]- 8508 Mar, [facility] [place] [facility] [address] [id number], [place] [address]- 0224 Mar, [facility] [place] [facility] [address] [id number] [place] [address]- 8768 Mar, [facility] [place] [facility] [address] [id number] [place] [address]- 6538 Mar, [facility] [place] [facility] [address] [id number] [place] 1457 Mar, [facility] [place] [facility] [address] [id number] [place] 8484 Mar, [facility] [place] [facility] [address] [id number] [place] [address]- 3427 Mar, [facility] [place] [facility] [address] [id number] [place] [address]- 7572 Mar, [facility] [place] [facility] [address] [id number] [place] [address]- 4680 Mar, [facility] [place] [facility] [address] [id number] [place] [address]- 5893 Mar, [facility] [place] [facility] [address] [id number] [place] [address]- 3560 Jan, [facility] [place] [facility] [address] [id number] [place] [address]- 0125 Jan, [facility] [place] [facility] [address] [id number] [place] [address]- 3043 Nov, [facility] [place] [facility] [address] [id number] [place] [address]- 5221 Nov, [facility] [place] [facility] [address] [id number] [place] [address]- 7870 October, [facility] [place] [facility] [address] [id number] [place] [address]- 1265 October, [facility] [place] [facility] [address] [id number] [place] [address]- 1730 October, [facility] [place] [facility] [address] [id number] [place] [address]- 6524 October, [facility] [place] [facility] [address] [id number] [place] [address]- 0043 October, [facility] [place] [facility] [address] [id number] [place] [address]- 9744 October, [facility] [place] [facility] [address] [id number] [place] [address]- 2292 October, [facility] [place] [facility] [address] [id number] [place] [address]- 7127 October, [facility] [place] [facility] [address] [id number] [place] [address]- 3722 Sep, [facility] [place] [facility] [address] [id number] [place] [address]- 9820 Sep, [facility] [place] [facility] [address] [id number] [place] [address]- 6502 Aug, [facility] [place] [facility] [address] [id number] [place] [address]- 3190 Aug, [facility] [place] [facility] [address] [id number] [place] [address]- 2929 Aug, [facility] [place] [facility] [address] [id number] [place] [address]- 8971 Aug, [facility] [place] [facility] [address] [id number] [place] [address]- 0728 May, [facility] [place] [facility] [address] [id number] [place] [address]- 0889 May, [facility] [place] [facility] [address] [id number], [place] [address]- 7689 May, [facility] [place] [facility] [address] [id number] [place] [address]- 6627 May, [facility] [place] [facility] [address] [id number] [place] [address]- 0576 May, [facility] [place] [facility] [address] [id number] [place] [address]- 0581 May, [facility] [place] [facility] [address] [id number], [place] [address]- 7750 May, [facility] [address] [id number] [place] [address]- 8004 May, [facility] [place] [facility] [address] [id number] [place] [address]- 8405 Mar, [facility] [address] [id number] [place] [address]- 1077 Mar, [facility] [place] [facility] [address] [id number] [place] [address]- 6908 Mar, [facility] [address] [id number] [place] [address]- 0106 Jan, [facility] [place] [facility] [address] [id number] [place] [address]- 5447 Jan, [facility] [address] [id number] [place] [address]- 6603 Dec, [facility] [place] [facility] [address] [id number] [place] [address]- 2395 Dec, [facility] [address] [id number] [place] [address]- 8408 Dec, [facility] [place] [facility] [address] [facility] [id number] [place] [address]- 3402 Sep, [facility] [address] [id number] [place] [address]- 6212 28 Aug, 2012 [facility] [place] [facility] [address] [id number], [place] [address]- 3356 21 Aug, 2012 [facility] [place] [facility] [address] [id number] [place] [address]- 6323 18 Aug, 2012 [facility] [place] [facility] [address] [id number] [place] [address]- 9754 15 Aug, 2012 [facility] [place] [facility] [address] [id number] [place] [address]- 2322 14 Aug, 2012 [facility] [place] [facility] [address] [id number] [place] [address]- 1931 Aug, [facility] [place] [facility] [address] [id number] [place] [address]- 6014 16 Jul, 2012 [facility] [place] [facility] [address] [id number] [place] [address]- 2986 15 Jul, 2012 [facility] [place] [facility] [address] [id number] [place] [address]- 9273 Jul, [facility] [place] [facility] [address] [id number] [place] [address]- 0613 Jul, [facility] [place] [facility] [address] [id number] [place] [address]- 8202 Jul, [facility] [place] [facility] [address] [id number] [place] [address]- 6288 Jul, [facility] [place] [facility] [address] [id number] [place] [address]- 7688 May, [facility] [place] [facility] [address] [id number] [place] [address]- 9431 May, [facility] [place] [facility] [address] [id number] [place] [address]- 1367 May, [facility] [place] [facility] [address] [id number] [place] 5133 18 May, 2012 [facility] [place] [facility] [address] [id number] [place] [address]- 2714 15 May, 2012 [facility] [place] [facility] [address] [id number] [place] [address]- 1813 15 May, 2012 [facility] [place] [facility] [address] [id number] [place] [address]- 9230 Mar, [facility] [place] [facility] [address] [id number] [place] [address]- 2906 Mar, [facility] [place] [facility] [address] [id number] [place] [address]- 4254 Mar, [facility] [place] [facility] [address] [id number] [place] [address]- 1548 Mar, [facility] [place] [facility] [address] [id number] [place] [address]- 3286 Mar, [facility] [place] [facility] [address] [id number] [place] [address] 2546 Mar, [facility] [place] [facility] [address] [id number] [place] [address]- 4743 Mar, [facility] [place] [facility] [address] [id number] [place] [address]- 9697 Dec, [facility] [place] [facility] [address] [id number] [place] [address]- 1736 Nov, [facility] [place] [facility] [address] [id number] [place] [address]- 2548 Sep, [facility] [place] [facility] [address] [id number] [place] [address]- 5163 Aug, [facility] [place] [facility] [address] [id number] [place] [address]- 6331 Aug, [facility] [place] [facility] [address] [id number] [place] [address]- 7619 Aug, [facility] [place] [facility] [address] [id number] [place] [address]- 4011 Aug, [facility] [place] [facility] [address] [id number], [place] [address]- 0278 16 Aug, 2011 [facility] [place] [facility] [address] [id number] [place] [address]- 5413 Aug, [facility] [place] [facility] [address] [id number] [place] [address]- 2378 Jul, [facility] [place] [facility] [address] [id number] [place] [address]- 5845 Jul, [facility] [place] [facility] [address] [id number] [place] [address]- 0733 10 Jul, 2011 [facility] [place] [facility] [address] [id number] [place] [address]- 2224 12 May, 2011 [facility] [place] [facility] [address] [id number] [place] [address]- 3336 04 May, 2011 [facility] [place] [facility] [address] [id number] [place] [address]- 9549 25 Mar, 2011 [facility] [place] [facility] [address] [id number] [place] [address]- 4250 24 Mar, 2011 [facility] [place] [facility] [address] [id number] [place] 0376 Mar, [facility] [place] [facility] [address] [id number] [place] [address]- 0803 10 Mar, 2011 [facility] [place] [facility] [address] [id number] [place] [address]- 0042 Dec, [facility] [place] [facility] [address] [id number] [place] [address]- 7462 14 May, 2010 [facility] [place] [facility] [address] [id number] [place] 8337 06 May, 2010 [facility] [place] [facility] [address] [id number] [place] [address]- 9107 May, [facility] [place] [facility] [address] [id number] [place] [address]- 2123 14 Mar, 2010 [facility] [place] [facility] [address] [id number] [place] [address]- 1610 14 Mar, 2010 [facility] [place] [facility] [address] [id number] [place] [address]- 0876 Jan, [facility] [place] [facility] [address] [id number] [place] [address]- 3178 18 Aug, 2009 [facility] [place] [facility] [address] [id number] [place] [address]- 9619 May, [facility] [address] [facility] [id number], [place] [address] 2546 May, [facility] [address] [facility] [id number], [place] [address] 2546 May, [facility] [address] [facility] [id number], [place] [address]- 2546 May, [facility] [address], [place] [address]- 2546 May, [facility] [address] [facility] [id number], [place] [address]- 2936 Mar, [facility] [id number], [place] [address] Jul, [facility] [id number], [place] [address] May, [facility] [id number], [place] [address] Mar, [facility] [id number], [place] [address] Sep, [facility] [id number], [place] [address] Jul, IMMUNIZATIONS No Known Immunizations SOCIAL HISTORY Never Assessed REASON FOR VISIT [facility] Contact PLAN OF CARE Activity Details Follow Up 3 Weeks Reason:Anxiety, depression, adjustment disorder. VITAL SIGNS MEDICATIONS Unknown Medications RESULTS No Results PROCEDURES Procedure Date Ordered Result Body Site Psych diagnostic evaluation, established patient September 19, 2017 INSTRUCTIONS MEDICATIONS ADMINISTERED No Known Medications [...]
--- OUTSIDE RECORDS SUMMARY | 2018-05-01 20:31 | XMS REPORT ---
Author Author NACHO YOBANY Organization [facility] Address [address] [place] [address] Care Team Providers Care Product Accountant Name Role Phone GRIFFITHYOBANY Campa Unavailable PROBLEMS Type Condition ICD9-CM Code INR84-BW Code Onset Dates Condition Status SNOMED Code Problem Irregular menses N92.6 Active 26408426 Problem Generalized anxiety disorder F41.1 Active 98976357 Problem Unspecified mood [affective] disorder F39 Active 227232347 Problem PCOS (polycystic ovarian syndrome) E28.2 Active 51743245 Problem IBS (irritable bowel syndrome) K58.9 Active 01076718 Problem Tobacco abuse Z72.0 Active 87032860 Problem Tobacco abuse counseling Z71.6 Active 824305668 Problem Abnormal uterine bleeding N93.9 Active [id number] Problem Other chronic pain G89.29 Active 32730151 Problem History of drug dependence/abuse F19.21 Active Problem Chronic posttraumatic stress disorder F43.12 Active 318891652 Problem Bipolar II disorder F31.81 Active 83972314 Problem PTSD (post-traumatic stress disorder) F43.10 Active 34772334 ALLERGIES No Known Allergies ENCOUNTERS Encounter Location Date Diagnosis [facility] [facility] [id number] [address] Jan, [facility] [address] [address] Dec, [facility] [id number] [address] Dec, [facility] [id number] [address] Nov, Irregular menses N92.6 ; Abnormal uterine bleeding N93.9 ; History of PCOS Z87.42 and History of unprotected sex Z72.51 [facility] [id number] [place] [address] 63462- 0706 October, [place] [id number] [place] [address] 09178- 1656 October, Low back pain M54.5 ; Dysuria R30.0 ; Other chronic pain G89.29 and Routine gynecological examination Z01.419 [place] [id number] [place] [address] 89774- 6787 October, Dysuria R30.0 and Vaginal discharge N89.8 [place] [id number] [place] [address] 33892- 6638 Sep, Bipolar II disorder F31.81 ; PTSD (post-traumatic stress disorder) F43.10 ; Generalized anxiety disorder F41.1 and History of drug dependence/abuse F19.21 [place] [id number] [place] [address] 56706- 2620 Sep, Unspecified mood [affective] disorder F39 and Post- traumatic stress disorder, unspecified F43.10 [place] [id number] [place] [address] 10031- 7741 Aug, PCOS (polycystic ovarian syndrome) E28.2 ; Recurrent major depressive disorder, in full remission F33.42 ; IBS (irritable bowel syndrome) K58.9 and Tobacco abuse Z72.0 [place] [id number] [place] [address] 53578- 4559 Aug, Generalized anxiety disorder F41.1 and Depressive disorder, not elsewhere classified F32.9 [place] [place] [id number] [place] [address] 12928- 2626 Aug, PCOS (polycystic ovarian syndrome) E28.2 ; Recurrent major depressive disorder, in full remission F33.42 ; IBS (irritable bowel syndrome) K58.9 ; Tobacco abuse Z72.0 ; Tobacco abuse counseling Z71.6 ; Dysuria R30.0 ; Irregular menses N92.6 ; Vaginal candidiasis B37.3 and Acute cystitis without hematuria N30.00 [place] [id number] [place] [address] 02089- 1680 May, [facility] [id number] [place] [address] 89111- 1968 18 Mar, 2017 Vaginal discharge N89.8 and Recurrent candidiasis of vagina B37.3 [facility] [id number] [place] [address] 13854- 4943 13 Mar, 2017 Nausea and vomiting in adult R11.2 ; Sore throat J02.9 and Diarrhea, unspecified type R19.7 [place] [id number] [place] [address] 54950- 1148 11 Mar, 2017 [place] [id number] [place] [address] 82492- 0957 14 Jan, 2017 Vaginal discharge N89.8 ; Dysuria R30.0 ; High risk sexual behavior Z72.51 ; Major depressive disorder, single episode F32.9 and Vaginal candidiasis B37.3 [place] [id number] [place] [address] 70269- 6770 03 Jan, 2017 Anxiety F41.9 [place] [id number] [place] [address] 84177- 0670 Dec, [place] [id number] [place] [address] 06860- 8954 Nov, Generalized anxiety disorder F41.1 ; Depressive disorder, not elsewhere classified F32.9 ; History of drug dependence/abuse F19.21 and 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 [facility] [id number] [place] [address] 62299- 8665 19 Nov, 2016 Vaginal discharge N89.8 ; High risk sexual behavior Z72.51 ; Potential exposure to STD Z20.2 and Vaginal candidiasis B37.3 [facility] [address] [place] [address] 06879- 9288 16 Nov, 2016 History of drug dependence/abuse F19.21 and Major depressive disorder, single episode F32.9 [place] [id number] [place] [address] 32518- 4483 Nov, Right medial knee pain M25.561 [facility] [address] 47389- 4093 October, Nausea and vomiting, intractability of vomiting not specified, unspecified vomiting type R11.2 and Acute pyelonephritis N10 [facility] [address] 52703- 1539 Sep, Major depressive disorder, single episode F32.9 ; Alcohol abuse F10.10 and Tobacco abuse Z72.0 [place] [address] 12406- 2281 Sep, Major depressive disorder, single episode F32.9 ; Alcohol abuse F10.10 and History of drug dependence/abuse F19.21 [place] [address] 43407- 4773 Sep, Major depressive disorder, single episode F32.9 [facility] [address] [address] -[address]296 Aug, Acute cystitis with hematuria N30.01 and Dysuria R30.0 [facility] [id number] [place] [address] 75048- 2389 Aug, Dysuria R30.0 ; Vaginal candidiasis B37.3 ; Vaginal discharge N89.8 and High risk sexual behavior Z72.51 [place] [id number] [place] [address] 54707- 6979 Jul, [place] [address] 15325- 5957 Jul, Major depressive disorder, single episode F32.9 ; History of drug dependence/abuse F19.21 ; Alcohol abuse F10.10 and Tobacco abuse Z72.0 [facility] [address] [place] [address] [id number] May, Dental examination Z01.20 and Dental caries K02.9 [facility] [id number] [place] [address] 46949- 7054 May, Fatigue, unspecified type R53.83 and Cough R05 [facility] [id number] [place] [address] 56026- 0873 May, [facility] [id number] [place] [address] 92504- 6076 Mar, [facility] [address] 83114- 5123 Mar, [facility] [address] 79915- 7299 Mar, [facility] [id number] [place] [address] 26510- 2033 Mar, [facility] [address] 77126- 6293 Mar, Absence of menstruation N91.2 ; Vagina itching L29.8 ; History of drug dependence/abuse F19.21 ; History of PID Z87.42 and Acute cystitis without hematuria N30.00 [facility] [id number] [place] [address] 45991- 8849 Sep, Routine health maintenance Z00.00 ; Late menses N91.0 ; History of drug dependence/abuse F19.21 ; Alcohol abuse F10.10 ; Tobacco abuse Z72.0 ; Tobacco abuse counseling Z71.6 and Back pain M54.9 [facility] [id number] [place] [address] [id number] Aug, Dental examination Z01.20 and Dental caries K02.9 [facility] [id number] [place] [address] 67315- 8467 Jul, [facility] [id number] [place] [address] 04123- 4340 Jul, Surveillance of contraceptive injection Z30.42 [facility] [id number] [place] [address]- 2340 13 Jul, 2015 Routine screening for STI (sexually transmitted infection) Z11.3 ; Drug use F19.90 ; Counseling on substance use and abuse Z71.89 ; Unprotected sexual intercourse Z72.51 ; Encounter for counseling regarding contraception Z30.9 ; Vaginal discharge N89.8 and Skin lesions L98.9 [facility] [id number] [place] [address] 50729- 6426 30 May, 2015 [facility] [address] 75445- 8243 May, Yeast infection B37.[address] [address]12- 0519 May, Excessive and frequent menstruation with irregular cycle N92.1 ; Other fatigue R53.83 ; General counseling and advice for contraceptive management Z30.09 ; Evaluation for contraceptive injection Z30.013 ; Cough R05 ; Vaginal irritation N89.8 and Dizziness R42 [facility] [id number] [place] [address] 60296- 1615 Sep, [facility] [address] 69656- 6759 Sep, [facility] [id number] [place] [address] 55449- 6927 Aug, [facility] [id number] [place] [address] 43653- 4717 Aug, [facility] [id number] [place] [address] 04390- 8248 Aug, [facility] [id number] [place] [address] 11569- 8765 Aug, [facility] [id number] [place] [address] 43366- 8610 Aug, [facility] [id number] [place] [address] 25852- 9507 Aug, [facility] [place] [facility] [address] [id number] [place] [address]- 8114 Aug, 2014 [facility] [place] [facility] [address] [id number] [place] [address]- 6187 Aug, 2014 [facility] [place] [facility] [address] [id number] [place] [address]- 4302 Aug, 2014 [facility] [place] [facility] [address] [id number] [place] [address]- 5837 Aug, 2014 [facility] [place] [facility] [address] [id number] [place] [address]- 0136 Aug, [facility] [place] [facility] [address] [id number] [place] [address]- 9267 Aug, [facility] [place] [facility] [address] [facility] [id number] [place] [address]- 7622 Jul, [facility] [place] [facility] [address] [id number] [address]- 1194 Jul, [facility] [place] [facility] [address] [facility] [id number] [place] [address]- 3843 May, [facility] [place] [facility] [address] [facility] [id number] [address]- 1142 May, [facility] [place] [facility] [address] [facility] [id number], [place] [address]- 8799 May, [facility] [place] [facility] [address] [id number], [place] [address]- 4803 May, [facility] [place] [facility] [address] [id number], [place] [address]- 7592 Mar, [facility] [place] [facility] [address] [id number], [place] [address]- 0904 Mar, [facility] [place] [facility] [address] [facility] [id number], [place] [address]- 1920 Mar, [facility] [place] [facility] [address] [id number], [place] [address]- 4166 Mar, [facility] [place] [facility] [address] [id number] [place] [address]- 3069 Mar, [facility] [place] [facility] [address] [id number] [place] [address]- 2928 Mar, [facility] [place] [facility] [address] [id number] [place] [address]- 3039 Mar, [facility] [place] [facility] [address] [id number] [place] [address]- 6861 Mar, [facility] [place] [facility] [address] [id number] [place] [address]- 1462 Mar, [facility] [place] [facility] [address] [id number] [place] [address]- 8495 Mar, [facility] [place] [facility] [address] [id number] [place] [address]- 8468 Jan, [facility] [place] [facility] [address] [id number] [place] [address]- 8517 Jan, [facility] [place] [facility] [address] [id number] [place] [address]- 1119 Nov, [facility] [place] [facility] [address] [id number] [place] [address]- 7517 Nov, [facility] [place] [facility] [address] [id number] [place] [address]- 2785 October, [facility] [place] [facility] [address] [id number] [place] [address]- 9649 October, [facility] [place] [facility] [address] [id number] [place] [address]- 5128 October, [facility] [place] [facility] [address] [id number] [place] [address]- 7969 October, [facility] [place] [facility] [address] [id number] [place] [address]- 4267 October, [facility] [place] [facility] [address] [id number] [place] [address]- 2915 October, [facility] [place] [facility] [address] [id number] [place] [address]- 4785 October, [facility] [place] [facility] [address] [id number] [place] [address]- 8573 October, [facility] [place] [facility] [address] [id number] [place] [address]- 7019 Sep, [facility] [place] [facility] [address] [id number] [place] [address]- 0204 Sep, [facility] [place] [facility] [address] [id number] [place] [address]- 1615 Aug, [facility] [place] [facility] [address] [id number] [place] [address]- 3634 Aug, [facility] [place] [facility] [address] [id number] [place] [address]- 1904 Aug, [facility] [place] [facility] [address] [id number] [place] [address]- 4648 Aug, [facility] [place] [facility] [address] [facility] [id number] [place] [address]- 8162 May, [facility] [place] [facility] [address] [id number] [place] [address]- 6125 May, [facility] [place] [facility] [address] [id number] [place] [address]- 3455 May, [facility] [place] [facility] [address] [id number] [place] [address]- 3899 May, [facility] [place] [facility] [address] [id number] [place] [address]- 8583 May, [facility] [place] [facility] [address] [id number] [place] [address]- 7991 May, [facility] [place] [facility] [address] [id number] [place] [address]- 3936 May, [facility] [place] [facility] [address] [id number] [place] [address]- 7687 May, [facility] [place] [facility] [address] [id number] [place] [address]- 2546 Mar, [facility] [place] [facility] [address] [id number] [place] [address] 254 Mar, [facility] [place] [facility] [address] [id number] [place] [address] 2547 Mar, [facility] [place] [facility] [address] [id number] [place] [address]- 4179 Jan, [facility] [place] [facility] [address] [id number] [place] [address]- 0439 Jan, [facility] [place] [facility] [address] [id number] [place] [address]- 8249 Dec, [facility] [place] [facility] [address] [id number] [place] [address]- 8276 Dec, [facility] [place] [facility] [address] [id number] [place] [address]- 1549 Dec, [facility] [place] [facility] [address] [id number] [place] [address]- 0089 Sep, [facility] [place] [facility] [address] [id number] [place] [address]- 7213 28 Aug, 2012 [facility] [place] [facility] [address] [id number], [place] [address] 2541 21 Aug, 2012 [facility] [place] [facility] [address] [id number] [place] [address] 2547 18 Aug, 2012 [facility] [place] [facility] [address] [id number] [place] [address] 2544 15 Aug, 2012 [facility] [place] [facility] [address] [id number] [place] [address]- 4525 14 Aug, 2012 [facility] [place] [facility] [address] [id number] [place] [address]- 1917 Aug, [facility] [address] [id number] [place] [address]- 5248 16 Jul, 2012 [facility] [address] [id number] [place] [address]- 1586 15 Jul, 2012 [facility] [address] [id number] [place] [address]- 7896 Jul, [facility] [address] [id number] [place] [address]- 3728 Jul, [facility] [address] [id number] [place] [address]- 3382 Jul, [facility] [address] [id number] [place] [address]- 1928 Jul, [facility] [address] [id number] [place] [address]- 5297 May, [facility] [address] [id number] [place] [address]- 7038 May, [facility] [address] [id number] [place] [address]- 3382 May, [facility] [address] [facility] [id number] [place] [address]- 0349 18 May, 2012 [facility] [address] [id number] [place] [address]- 7869 15 May, 2012 [facility] [address] [id number] [place] [address]- 3355 May, [facility] [address] [id number] [place] [address]- 0204 Mar, [facility] [address] [id number] [place] [address]- 9963 Mar, [facility] [address] [id number] [place] [address]- 8660 Mar, [facility] [place] [facility] [address] [id number] [place] [address]- 1641 Mar, [facility] [place] [facility] [address] [id number] [place] [address]- 7386 Mar, [facility] [place] [facility] [address] [id number] [place] [address]- 0546 Mar, [facility] [place] [facility] [address] [id number] [place] [address]- 2326 Mar, [facility] [place] [facility] [address] [id number] [place] [address]- 4149 Dec, [facility] [place] [facility] [address] [id number] [place] [address]- 8266 Nov, [facility] [place] [facility] [address] [id number] [place] [address]- 2716 Sep, [facility] [place] [facility] [address] [id number] [place] [address]- 2106 Aug, [facility] [place] [facility] [address] [id number] [place] [address]- 0179 Aug, [facility] [place] [facility] [address] [facility] [id number] [place] [address]- 9011 Aug, [facility] [place] [facility] [address] [id number] [place] [address]- 7446 Aug, [facility] [place] [facility] [address] [id number] [address]- 3653 16 Aug, 2011 [facility] [place] [facility] [address] [id number] [place] [address]- 4748 Aug, [facility] [place] [facility] [address] [id number] [place] [address]- 2076 Jul, [facility] [place] [facility] [address] [id number] [place] [address]- 3836 Jul, [facility] [place] [facility] [address] [id number], [place] [address]- 5955 10 Jul, 2011 [facility] [place] [facility] [address] [id number] [place] [address]- 9490 May, [facility] [place] [facility] [address] [id number] [place] [address]- 5677 May, [facility] [place] [facility] [address] [id number] [place] [address]- 9267 Mar, [facility] [place] [facility] [address] [id number] [place] [address]- 1466 24 Mar, 2011 [facility] [place] [facility] [address] [id number] [place] [address]- 8091 Mar, [facility] [place] [facility] [address] [id number] [place] [address]- 5395 Mar, [facility] [place] [facility] [address] [id number] [place] [address]- 9093 Dec, [facility] [place] [facility] [address] [id number] [place] [address]- 5306 14 May, 2010 [facility] [place] [facility] [address] [facility] [id number] [place] [address]- 4820 May, [facility] [place] [facility] [address] [id number] [place] [address] May, [facility] [place] [facility] [address] [id number] [place] [address] 14 Mar, 2010 [facility] [place] [facility] [address] [id number] [place] [address] 14 Mar, 2010 [facility] [place] [facility] [address] [id number] [place] [address] Jan, [facility] [place] [facility] [address] [id number] [place] [address] 18 Aug, 2009 [facility] [place] [facility] [address] [facility] [id number] [place] [address] May, [facility] [place] [facility] [id number] [address] May, [facility] [id number] [address] May, [facility] [id number] [address] May, [facility] [id number] [address] May, [facility] [id number] [address] Mar, [facility] [id number] [address] Jul, [facility] [id number] [address] May, [facility] [id number] [address] Mar, [facility] [id number], [place] [address] Sep, [facility] [id number] [address] Jul, IMMUNIZATIONS No Known Immunizations SOCIAL HISTORY Never Assessed REASON FOR VISIT fertility questions, TAINA Baker, Needs refill on antidepressants. PLAN OF CARE Activity Details Follow Up 3 Months, prn Reason:[facility] VITAL SIGNS Height 66 in 2017-09-19 Weight 163 lbs 2017-09-19 Temperature 97.6 degrees Fahrenheit 2017-09-19 Heart Rate 86 bpm 2017-09-19 Respiratory Rate 18 2017-09-19 BMI 26.31 kg/m2 2017-09-19 Blood pressure systolic 128 mmHg 2017-09-19 Blood pressure diastolic 78 mmHg 2017-09-19 MEDICATIONS Medication Instructions Dosage Frequency Start Date End Date Duration Status Zofran 8 MG Orally every 8 hours, PRN 1 tablet Mar, Active Diflucan 150 MG Orally Once a day 1 tablet today, may repeat in 7 days 24h Aug, Aug, 2 days Active Bactrim DS 800-160 MG Orally Twice a day 1 tablet 12h 22 Aug, 2017 Sep, 10 day(s) Active Zoloft 25 MG Orally Once a day 1 tablet 24h 90 days Active RESULTS No Results PROCEDURES Procedure Date Ordered Result Body Site URINALYSIS, AUTO, W/O SCOPE September 19, 2017 URINE TEST September 19, 2017 URINE CULTURE/COLONY COUNT September 19, 2017 INSTRUCTIONS MEDICATIONS ADMINISTERED No [...]
--- OUTSIDE RECORDS SUMMARY | 2018-05-01 20:41 | XMS REPORT | Continuity of Care Document ---
Author Author [facility] Address Unknown Phone Unavailable Allergies Active Description Code Type Severity Reaction Onset Reported/Identified Relationship to Patient Clinical Status Yes NO KNOWN DRUG ALLERGIES NO KNOWN DRUG ALLERG UNKNOWN Yes NO KNOWN DRUG ALLERGIES UNKNOWN NO KNOWN DRUG ALLERG Yes No Known Drug Allergies [id number] Drug Allergy Unknown N/A 08/30/2011 Medications Medication [...] GARY V58.69 MEDICATION HIGH RISK 02/23/2008 REFUGIO RN EMERGENCY ROOM, LIDIA A V03.89 Meningococcal, Other Specified Single Bacterial Disease 02/23/2008 REFUGIO RN EMERGENCY ROOM, LIDIA A V05.3 Hepatitis Viral/all 02/23/2008 REFUGIO RN EMERGENCY ROOM, LIDIA A V06.5 Dt, Tetanus-diphtheria [td] 02/23/2008 REFUGIO RN EMERGENCY ROOM, LIDIA A V20.2 WELL CHILD, ROUTINE 02/23/2008 REFUGIO RN EMERGENCY ROOM, LIDIA A V58.69 MEDICATION HIGH RISK 02/23/2008 REFUGIO RN EMERGENCY ROOM, LIDIA A V03.89 Meningococcal, Other Specified Single Bacterial Disease 02/23/2008 REFUGIO RN EMERGENCY ROOM, LIDIA A V05.3 Hepatitis Viral/all 02/23/2008 REFUGIO RN EMERGENCY ROOM, LIDIA A V06.5 Dt, Tetanus-diphtheria [td] 02/23/2008 REFUGIO RN EMERGENCY ROOM, LIDIA A V20.2 WELL CHILD, ROUTINE 02/23/2008 REFUGIO RN EMERGENCY ROOM, LIDIA A V58.69 MEDICATION HIGH RISK 02/23/2008 REFUGIO RN EMERGENCY ROOM, LIDIA A V03.89 Meningococcal, Other Specified Single Bacterial Disease 02/23/2008 REFUGIO RN EMERGENCY ROOM, LIDIA A V05.3 Hepatitis Viral/all 02/23/2008 REFUGIO RN EMERGENCY ROOM, LIDIA A V06.5 Dt, Tetanus-diphtheria [td] 02/23/2008 REFUGIO RN EMERGENCY ROOM, LIDIA A V20.2 WELL CHILD, ROUTINE 02/23/2008 REFUGIO RN EMERGENCY ROOM, LIDIA A V58.69 MEDICATION HIGH RISK 02/23/2008 REFUGIO RN EMERGENCY ROOM, LIDIA A V03.89 Meningococcal, Other Specified Single Bacterial Disease 02/23/2008 REFUGIO RN EMERGENCY ROOM, LIDIA A V05.3 Hepatitis Viral/all 02/23/2008 REFUGIO RN EMERGENCY ROOM, LIDIA A V06.5 Dt, Tetanus-diphtheria [td] 02/23/2008 REFUGIO RN EMERGENCY ROOM, LIDIA A V20.2 WELL CHILD, ROUTINE 02/23/2008 REFUGIO RN EMERGENCY ROOM, LIDIA A V58.69 MEDICATION HIGH RISK 02/23/2008 REFUGIO RN EMERGENCY ROOM, LIDIA A V03.89 Meningococcal, Other Specified Single Bacterial Disease 02/23/2008 REFUGIO RN EMERGENCY ROOM, LIDIA A V05.3 Hepatitis Viral/all 02/23/2008 REFUGIO RN EMERGENCY ROOM, LIDIA A V06.5 Dt, Tetanus-diphtheria [td] 02/23/2008 REFUGIO RN EMERGENCY ROOM, LIDIA A V20.2 WELL CHILD, ROUTINE 02/23/2008 REFUGIO TON, LIDIA A V58.69 MEDICATION HIGH RISK 02/23/2008 REFUGIO TON, LIDIA A V03.89 Meningococcal, Other Specified Single Bacterial Disease 02/23/2008 REFUGIO RN EMERGENCY ROOM, LIDIA A V05.3 Hepatitis Viral/all 02/23/2008 REFUGIO RN EMERGENCY ROOM, LIDIA A V06.5 Dt, Tetanus-diphtheria [td] 02/23/2008 [...] DO V58.69 MEDICATION HIGH RISK 02/23/2008 REFUGIO RN EMERGENCY ROOM, LIDIA A V03.89 Meningococcal, Other Specified Single Bacterial Disease 02/23/2008 REFUGIO RN EMERGENCY ROOM, LIDIA A V05.3 Hepatitis Viral/all 02/23/2008 REFUGIO RN EMERGENCY ROOM, LIDIA A V06.5 Dt, Tetanus-diphtheria [td] 02/23/2008 REFUGIO RN EMERGENCY ROOM, LIDIA A V20.2 WELL CHILD, ROUTINE 02/23/2008 REFUGIO RN EMERGENCY ROOM, LIDIA A V58.69 MEDICATION HIGH RISK 02/23/2008 [...] Vero V58.69 MEDICATION HIGH RISK 02/23/2008 REFUGIO RN EMERGENCY ROOM, LIDIA A V03.89 Meningococcal, Other Specified Single Bacterial Disease 02/23/2008 REFUGIO RN EMERGENCY ROOM, LIDIA A V05.3 Hepatitis Viral/all 02/23/2008 REFUGIO RN EMERGENCY ROOM, LIDIA A V06.5 Dt, Tetanus-diphtheria [td] 02/23/2008 REFUGIO RN EMERGENCY ROOM, LIDIA A V20.2 WELL CHILD, ROUTINE 02/23/2008 REFUGIO RN EMERGENCY ROOM, LIDIA A V58.69 MEDICATION HIGH RISK 04/30/2008 [...] MD 780.79 Malaise And Fatigue 04/30/2008 REFUGIO RN EMERGENCY ROOM, LIDIA A 780.60 Fever, Unspecified 04/30/2008 REFUGIOAdy MEDINA LIDIA A 780.79 Malaise And Fatigue 04/30/2008 REFUGIO MEDINA LIDIA A 780.60 Fever, Unspecified 04/30/2008 REFUGIO RN EMERGENCY ROOM, LIDIA A 780.79 Malaise And Fatigue 04/30/2008 REFUGIOJODIE MEDINA, LIDIA A 780.60 Fever, Unspecified 04/30/2008 REFUGIO RN EMERGENCY ROOM, LIDIA A 780.79 Malaise And Fatigue 04/30/2008 REFUGIO RN EMERGENCY ROOM, LIDIA A 780.60 Fever, Unspecified 04/30/2008 REFUGIO RN EMERGENCY ROOM, LIDIA A 780.79 Malaise And Fatigue 04/30/2008 REFUGIO RN EMERGENCY ROOM, LIDIA A 780.60 Fever, Unspecified 04/30/2008 REFUGIO RN EMERGENCY ROOM, LIDIA A 780.79 Malaise And Fatigue 04/30/2008 REFUGIO MEDINA, LIDIA A 780.60 Fever, Unspecified 04/30/2008 REFUGIO RN EMERGENCY ROOM, LIDIA A 780.79 Malaise And Fatigue 04/30/2008 AZAEL BECKER, RAYMUNDO 780.60 Fever, Unspecified 04/30/2008 AZAEL BECKER, RAYMUNDO 780.79 Malaise And Fatigue 04/30/2008 LUEVANO DO, MIKE K 780.60 Fever, Unspecified 04/30/2008 LUEVANO DO, MIKE K 780.79 Malaise And Fatigue 04/30/2008 REFUGIO RN EMERGENCY ROOM, LIDIA A 780.60 Fever, Unspecified 04/30/2008 ERFUGIO RN EMERGENCY ROOM, LIDIA A 780.79 Malaise And Fatigue 04/30/2008 LUEVANO DO, MIKE K 780.60 Fever, Unspecified 04/30/2008 LUEVANO DO, MIKE K 780.79 Malaise And Fatigue 04/30/2008 LUEVANO DO, MIKE K 780.60 Fever, Unspecified 04/30/2008 LUEVANO DO, MIKE K 780.79 Malaise And Fatigue 04/30/2008 REFUGIO RN EMERGENCY ROOM, LIDIA A 780.60 Fever, Unspecified 04/30/2008 REFUGIO RN EMERGENCY ROOM, LIDIA A 780.79 Malaise And Fatigue 08/04/2008 [...] 382.4 Unspecified Suppurative Otitis Media 08/04/2008 REFUGIO RN EMERGENCY ROOM, LIDIA A 132.0 Pediculus Capitis (head Louse) 08/04/2008 REFUGIO RN EMERGENCY ROOM, LIDIA A 382.4 Unspecified Suppurative Otitis Media 08/04/2008 REFUGIO RN EMERGENCY ROOM, LIDIA A 132.0 Pediculus Capitis (head Louse) 08/04/2008 REFUGIO RN EMERGENCY ROOM, LIDIA A 382.4 Unspecified Suppurative Otitis Media 08/04/2008 REFUGIO RN EMERGENCY ROOM, LIDIA A 132.0 Pediculus Capitis (head Louse) 08/04/2008 REFUGIO RN EMERGENCY ROOM, LIDIA A 382.4 Unspecified Suppurative Otitis Media 08/04/2008 REFUGIO RN EMERGENCY ROOM, LIDIA A 132.0 Pediculus Capitis (head Louse) 08/04/2008 REFUGIO RN EMERGENCY ROOM, LIDIA A 382.4 Unspecified Suppurative Otitis Media 08/04/2008 REFUGIO RN EMERGENCY ROOM, LIDIA A 132.0 Pediculus Capitis (head Louse) 08/04/2008 REFUGIO RN EMERGENCY ROOM, LIDIA A 382.4 Unspecified Suppurative Otitis Media 08/04/2008 REFUGIO RN EMERGENCY ROOM, LIDIA A 132.0 Pediculus Capitis (head Louse) 08/04/2008 REFUGIO RN EMERGENCY ROOM, LIDIA A 382.4 Unspecified Suppurative Otitis Media 08/04/2008 AZAEL BECKER, RAYMUNDO 132.0 Pediculus Capitis (head Louse) 08/04/2008 AZAEL BECKER, RAYMUNDO 382.4 Unspecified Suppurative Otitis Media 08/04/2008 LUEVANO DO, MIKE K 132.0 Pediculus Capitis (head Louse) 08/04/2008 LUEVANO DO, MIKE K 382.4 Unspecified Suppurative Otitis Media 08/04/2008 REFUGIO RN EMERGENCY ROOM, LIDIA A 132.0 Pediculus Capitis (head Louse) 08/04/2008 REFUGIO RN EMERGENCY ROOM, LIDIA A 382.4 Unspecified Suppurative Otitis Media [...] MD 300.4 Mo Dysthymic Disorder 12/02/2008 REFUGIO RN EMERGENCY ROOM, LIDIA A 300.4 Mo Dysthymic Disorder 12/02/2008 REFUGIO TON, LIDIA A 300.4 Mo Dysthymic Disorder 12/02/2008 REFUGIO RN EMERGENCY ROOM, LIDIA A 300.4 Mo Dysthymic Disorder 12/02/2008 REFUGIO RN EMERGENCY ROOM, LIDIA A 300.4 Mo Dysthymic Disorder 12/02/2008 REFUGIO RN EMERGENCY ROOM, LIDIA A 300.4 Mo Dysthymic Disorder 12/02/2008 [...] Elsewhere And Of Unspecified Site 04/07/2009 REFUGIO RN EMERGENCY ROOM, LIDIA A 079.99 Unspecified Viral Infection In Conditions Classified Elsewhere And Of Unspecified Site 04/07/2009 REFUGIO RN EMERGENCY ROOM, LIDIA A 079.99 Unspecified Viral Infection In Conditions Classified Elsewhere And Of Unspecified Site 04/07/2009 REFUGIO RN EMERGENCY ROOM, LIDIA A 079.99 Unspecified Viral Infection In [...] LIDIA A 789.00 Abdominal Pain 05/02/2009 REFUGIO RN EMERGENCY ROOM, LIDIA A 789.00 Abdominal Pain 05/02/2009 RAYMUNDO ADDISON MD 789.00 Abdominal Pain 05/02/2009 CHLOÉ GARSIA, MIKE K 789.00 Abdominal Pain 05/02/2009 REFUGIO RN EMERGENCY ROOM, LIDIA A 789.00 Abdominal Pain 05/02/2009 CHLOÉ GARSIA, MIKE K 789.00 Abdominal Pain 05/02/2009 CHLOÉ GARSIA, MIKE K 789.00 Abdominal Pain 05/02/2009 REFUGIO RN EMERGENCY ROOM, LIDIA A 789.00 Abdominal Pain 06/02/2009 373.11 [...] A 373.11 Stye (hordeolum Externum) 06/02/2009 REFUGIO RN EMERGENCY ROOM, LIDIA A 682.9 Cellulitis 06/02/2009 REFUGIO RN EMERGENCY ROOM, LIDIA A 373.11 Stye (hordeolum Externum) 06/02/2009 REFUGIO RN EMERGENCY ROOM, LIDIA A 682.9 Cellulitis 06/02/2009 REFUGIO RN EMERGENCY ROOM, LIDIA A 373.11 Stye (hordeolum Externum) 06/02/2009 REFUGIO RN EMERGENCY ROOM, LIDIA A 682.9 Cellulitis 06/02/2009 REFUGIO RN EMERGENCY ROOM, LIDIA A 373.11 Stye (hordeolum Externum) 06/02/2009 REFUGIO RN EMERGENCY ROOM, LIDIA A 682.9 Cellulitis 06/02/2009 REFUGIO RN EMERGENCY ROOM, LIDIA A 373.11 Stye (hordeolum Externum) 06/02/2009 REFUGIO RN EMERGENCY ROOM, LIDIA A 682.9 Cellulitis 06/02/2009 REFUGIO RN EMERGENCY ROOM, LIDIA A 373.11 Stye (hordeolum Externum) 06/02/2009 REFUGIO RN EMERGENCY ROOM, LIDIA A 682.9 Cellulitis 06/02/2009 AZAEL BECKER, RAYMUNDO 373.11 Stye (hordeolum Externum) 06/02/2009 RAYMUNDO ADDISON MD 682.9 Cellulitis 06/02/2009 SHAWN LUEVANO DOA K 373.11 Stye (hordeolum Externum) 06/02/2009 LUEVANO DOSHAWNA K 682.9 Cellulitis 06/02/2009 REFUGIO RN EMERGENCY ROOM, LIDIA A 373.11 Stye (hordeolum Externum) 06/02/2009 REFUGIO RN EMERGENCY ROOM, LIDIA A 682.9 Cellulitis 06/02/2009 LUEVANO DO MIKE K 373.11 Stye (hordeolum Externum) 06/02/2009 LUEVANO DO MIKE K 682.9 Cellulitis 06/02/2009 LUEVANO DO, MIKE K 373.11 Stye (hordeolum Externum) 06/02/2009 LUEVANO DO MIKE K 682.9 Cellulitis 06/02/2009 REFUGIO RN EMERGENCY ROOM, LIDIA A 373.11 Stye (hordeolum Externum) 06/02/2009 REFUGIO RN EMERGENCY ROOM, LIDIA A 682.9 Cellulitis 08/18/2009 307.20 TIC [...] MD 781.0 Abnormal Involuntary Movements 08/18/2009 REFUGIO RN EMERGENCY ROOM, LIDIA A 307.20 TIC DISORDER 08/18/2009 REFUGIO RN EMERGENCY ROOM, LIDIA A 781.0 Abnormal Involuntary Movements 08/18/2009 REFUGIO RN EMERGENCY ROOM, LIDIA A 307.20 TIC DISORDER 08/18/2009 REFUGIO RN EMERGENCY ROOM, LIDIA A 781.0 Abnormal Involuntary Movements 08/18/2009 REFUGIO RN EMERGENCY ROOM, LIDIA A 307.20 TIC DISORDER 08/18/2009 REFUGIO RN EMERGENCY ROOM, LIDIA A 781.0 Abnormal Involuntary Movements 08/18/2009 REFUGIO RN EMERGENCY ROOM, LIDIA A 307.20 TIC DISORDER 08/18/2009 REFUGIO RN EMERGENCY ROOM, LIDIA A 781.0 Abnormal Involuntary Movements 08/18/2009 REFUGIO RN EMERGENCY ROOM, LIDIA A 307.20 TIC DISORDER 08/18/2009 REFUGIO RN EMERGENCY ROOM, LIDIA A 781.0 Abnormal Involuntary Movements 08/18/2009 REFUGIO RN EMERGENCY ROOM, LIDIA A 307.20 TIC DISORDER 08/18/2009 REFUGIO RN EMERGENCY ROOM, LIDIA A 781.0 Abnormal Involuntary Movements 08/18/2009 RAYMUNDO ADDISON MD 307.20 TIC DISORDER 08/18/2009 RAYMUNDO ADDISON MD 781.0 Abnormal Involuntary Movements 08/18/2009 LUEVANO DO, MIKE K 307.20 TIC DISORDER 08/18/2009 LUEVANO DO, MIKE K 781.0 Abnormal Involuntary Movements 08/18/2009 REFUGIO RN EMERGENCY ROOM, LIDIA A 307.20 TIC DISORDER 08/18/2009 REFUGIO RN EMERGENCY ROOM, LIDIA A 781.0 Abnormal Involuntary Movements 08/18/2009 LUEVANO DO, MIKE K 307.20 TIC DISORDER 08/18/2009 LUEVANO DO, MIKE K 781.0 Abnormal Involuntary Movements 08/18/2009 LUEVANO DO, MIKE K 307.20 TIC DISORDER 08/18/2009 LUEVANO DO, MIKE K 781.0 Abnormal Involuntary Movements 08/18/2009 REFUGIO APRN, LIDIA A 307.20 TIC DISORDER 08/18/2009 REFUGIO RN EMERGENCY ROOM, LIDIA A 781.0 Abnormal Involuntary Movements 10/05/2009 [...] Respiratory Infections Of Unspecified Site 10/05/2009 REFUGIO RN EMERGENCY ROOM, LIDIA A 465.9 Acute Upper Respiratory Infections Of Unspecified Site 10/05/2009 REFUGIO RN EMERGENCY ROOM, LIDIA A 465.9 Acute Upper Respiratory Infections Of Unspecified Site 10/05/2009 REFUGIO RN EMERGENCY ROOM, LIDIA A 465.9 Acute Upper Respiratory Infections Of Unspecified Site 10/05/2009 REFUGIO RN EMERGENCY ROOM, LIDIA A 465.9 Acute Upper Respiratory Infections Of Unspecified Site 10/05/2009 RAYMUNDO ADDISON MD 465.9 Acute Upper Respiratory Infections Of Unspecified Site 10/05/2009 LUEVANO DOMIKE K 465.9 Acute Upper Respiratory Infections Of Unspecified Site 10/05/2009 REFUGIO RN EMERGENCY ROOM, LIDIA A 465.9 Acute Upper Respiratory Infections Of Unspecified Site 10/05/2009 LUEVANO DO, MIKE K 465.9 Acute Upper Respiratory Infections Of Unspecified Site 10/05/2009 LUEVANO DO, MIKE K 465.9 Acute Upper Respiratory Infections Of Unspecified Site 10/05/2009 REFUGIO RN EMERGENCY ROOM, LIDIA A 465.9 Acute Upper Respiratory Infections Of Unspecified Site 10/06/2009 477.9 RHINITIS 10/06/2009 477.9 RHINITIS 10/06/2009 477.9 RHINITIS 10/06/2009 477.9 RHINITIS 10/06/2009 GARY RENO MD 477.9 RHINITIS 10/06/2009 477.9 RHINITIS 10/06/2009 MIKE LUEVANO DO 477.9 RHINITIS 10/06/2009 477.9 RHINITIS 10/06/2009 477.9 RHINITIS 10/06/2009 477.9 RHINITIS 10/06/2009 GARY RENO MD 477.9 RHINITIS 10/06/2009 REFUGIO RN EMERGENCY ROOM, LIDIA A 477.9 RHINITIS 10/06/2009 REFUGIO RN EMERGENCY ROOM, LIDIA A 477.9 RHINITIS 10/06/2009 REFUGIO RN EMERGENCY ROOM, LIDIA A 477.9 RHINITIS 10/06/2009 REFUGIO RN EMERGENCY ROOM, LIDIA A 477.9 RHINITIS 10/06/2009 REFUGIO RN EMERGENCY ROOM, LIDIA A 477.9 RHINITIS 10/06/2009 REFUGIO RN EMERGENCY ROOM, LIDIA A 477.9 RHINITIS 10/06/2009 AZAEL MD, RAYMUNDO 477.9 RHINITIS 10/06/2009 LUEVANO DO, MIKE K 477.9 RHINITIS 10/06/2009 REFUGIO RN EMERGENCY ROOM, LIDIA A 477.9 RHINITIS 10/06/2009 LUEVANO DO, MIKE K 477.9 RHINITIS 10/06/2009 LUEVANO DO, MIKE K 477.9 RHINITIS 10/06/2009 REFUGIO RN EMERGENCY ROOM, LIDIA A 477.9 RHINITIS 10/20/2009 314.01 ADHD COMBINED 10/20/2009 314.01 ADHD COMBINED 10/20/2009 314.01 ADHD COMBINED 10/20/2009 314.01 ADHD COMBINED 10/20/2009 SHADIA BECKER, GARY 314.01 ADHD COMBINED 10/20/2009 314.01 ADHD COMBINED 10/20/2009 LUEVANO DO, MIKE K 314.01 ADHD COMBINED 10/20/2009 314.01 ADHD COMBINED 10/20/2009 314.01 ADHD COMBINED 10/20/2009 314.01 ADHD COMBINED 10/20/2009 SHADIA BECKER, GARY 314.01 ADHD COMBINED 10/20/2009 REFUGIO RN EMERGENCY ROOM, LIDIA A 314.01 ADHD COMBINED 10/20/2009 REFUGIO RN EMERGENCY ROOM, LIDIA A 314.01 ADHD COMBINED 10/20/2009 REFUGIO RN EMERGENCY ROOM, LIDIA A 314.01 ADHD COMBINED 10/20/2009 REFUGIO RN EMERGENCY ROOM, LIDIA A 314.01 ADHD COMBINED 10/20/2009 REFUGIO RN EMERGENCY ROOM, LIDIA A 314.01 ADHD COMBINED 10/20/2009 REFUGIO RN EMERGENCY ROOM, LIDIA A 314.01 ADHD COMBINED 10/20/2009 AZAEL BECKER, RAYMUNDO 314.01 ADHD COMBINED 10/20/2009 LUEVANO DO, MIKE K 314.01 ADHD COMBINED 10/20/2009 REFUGIO RN EMERGENCY ROOM, LIDIA A 314.01 ADHD COMBINED 10/20/2009 LUEVANO DO, MIKE K 314.01 ADHD COMBINED 10/20/2009 LUEVANO DO, MIKE K 314.01 ADHD COMBINED 10/20/2009 REFUGIO RN EMERGENCY ROOM, LIDIA A 314.01 ADHD COMBINED 11/24/2009 443.0 RAYNAUD'S SYNDROME 11/24/2009 443.0 RAYNAUD'S SYNDROME 11/24/2009 443.0 RAYNAUD'S SYNDROME 11/24/2009 443.0 RAYNAUD'S SYNDROME 11/24/2009 GARY RENO MD 443.0 RAYNAUD'S SYNDROME 11/24/2009 443.0 RAYNAUD'S SYNDROME 11/24/2009 MIKE LUEVANO DO K 443.0 RAYNAUD'S SYNDROME 11/24/2009 443.0 RAYNAUD'S SYNDROME 11/24/2009 443.0 RAYNAUD'S SYNDROME 11/24/2009 443.0 RAYNAUD'S SYNDROME 11/24/2009 GARY RENO MD 443.0 RAYNAUD'S SYNDROME 11/24/2009 REFUGIO RN EMERGENCY ROOM, LIDIA A 443.0 RAYNAUD'S SYNDROME 11/24/2009 REFUGIO RN EMERGENCY ROOM, LIDIA A 443.0 RAYNAUD'S SYNDROME 11/24/2009 REFUGIO RN EMERGENCY ROOM, LIDIA A 443.0 RAYNAUD'S SYNDROME 11/24/2009 REFUGIO RN EMERGENCY ROOM, LIDIA A 443.0 RAYNAUD'S SYNDROME 11/24/2009 REFUGIO MEDINA, LIDIA A 443.0 RAYNAUD'S SYNDROME 11/24/2009 REFUGIO RN EMERGENCY ROOM, LIDIA A 443.0 RAYNAUD'S SYNDROME 11/24/2009 RAYMUNDO [...] GARY 599.0 Urinary Tract Infection 04/13/2010 REFUGIO RN EMERGENCY ROOM, LIDIA A 599.0 Urinary Tract Infection 04/13/2010 REFUGIO RN EMERGENCY ROOM, LIDIA A 599.0 Urinary Tract Infection 04/13/2010 REFUGIO RN EMERGENCY ROOM, LIDIA A 599.0 Urinary Tract Infection 04/13/2010 REFUGIO RN EMERGENCY ROOM, LIDIA A 599.0 Urinary Tract Infection 04/13/2010 REFUGIO RN EMERGENCY ROOM, LIDIA A 599.0 Urinary Tract Infection 04/13/2010 REFUGIO RN EMERGENCY ROOM, LIDIA A 599.0 Urinary Tract Infection 04/13/2010 AZAEL BECKER, RAYMUNDO 599.0 Urinary Tract Infection 04/13/2010 LUEVANO DO, MIKE K 599.0 Urinary Tract Infection 04/13/2010 REFUGIO RN EMERGENCY ROOM, LIDIA A 599.0 Urinary Tract Infection 04/13/2010 LUEVANO DO, MIKE K 599.0 Urinary Tract Infection 04/13/2010 LUEVANO DO, MIKE K 599.0 Urinary Tract Infection 04/13/2010 REFUGIO RN EMERGENCY ROOM, LIDIA A 599.0 Urinary Tract Infection 06/05/2010 110.5 Tinea Corporis 06/05/2010 110.5 Tinea Corporis 06/05/2010 110.5 Tinea Corporis 06/05/2010 110.5 Tinea Corporis 06/05/2010 GARY RENO MD 110.5 Tinea Corporis 06/05/2010 110.5 Tinea Corporis 06/05/2010 LUEVANO DO, MIKE K 110.5 Tinea Corporis 06/05/2010 110.5 Tinea Corporis 06/05/2010 110.5 Tinea Corporis 06/05/2010 110.5 Tinea Corporis 06/05/2010 GARY RENO MD 110.5 Tinea Corporis 06/05/2010 REFUGIO RN EMERGENCY ROOM, LIDIA A 110.5 Tinea Corporis 06/05/2010 REFUGIO RN EMERGENCY ROOM, LIDIA A 110.5 Tinea Corporis 06/05/2010 REFUGIO RN EMERGENCY ROOM, LIDIA A 110.5 Tinea Corporis 06/05/2010 REFUGIO RN EMERGENCY ROOM, LIDIA A 110.5 Tinea Corporis 06/05/2010 REFUGIO RN EMERGENCY ROOM, LIDIA A 110.5 Tinea Corporis 06/05/2010 REFUGIO RN EMERGENCY ROOM, LIDIA A 110.5 Tinea Corporis 06/05/2010 AZAEL BECKER, RAYMUNDO 110.5 Tinea Corporis 06/05/2010 LUEVANO DO, MIKE K 110.5 Tinea Corporis 06/05/2010 REFUGIO RN EMERGENCY ROOM, LIDIA A 110.5 Tinea Corporis 06/05/2010 LUEVANO DO, MIKE K 110.5 Tinea Corporis 06/05/2010 LUEVANO DO, MIKE K 110.5 Tinea Corporis 06/05/2010 REFUGIO RN EMERGENCY ROOM, LIDIA A 110.5 Tinea Corporis 08/07/2010 461.9 Sinusitis Acute 08/07/2010 461.9 Sinusitis Acute 08/07/2010 461.9 Sinusitis Acute 08/07/2010 461.9 Sinusitis Acute 08/07/2010 GARY RENO MD 461.9 Sinusitis Acute 08/07/2010 461.9 Sinusitis Acute 08/07/2010 MIKE LUEVANO DO K 461.9 Sinusitis Acute 08/07/2010 461.9 Sinusitis Acute 08/07/2010 461.9 Sinusitis Acute 08/07/2010 461.9 Sinusitis Acute 08/07/2010 GARY RENO MD 461.9 Sinusitis Acute 08/07/2010 REFUGIO RN EMERGENCY ROOM, LIDIA A 461.9 Sinusitis Acute 08/07/2010 REFUGIO RN EMERGENCY ROOM, LIDIA A 461.9 Sinusitis Acute 08/07/2010 REFUGIO RN EMERGENCY ROOM, LIDIA A 461.9 Sinusitis Acute 08/07/2010 REFUGIO RN EMERGENCY ROOM, LIDIA A 461.9 Sinusitis Acute 08/07/2010 REFUGIO RN EMERGENCY ROOM, LIDIA A 461.9 Sinusitis Acute 08/07/2010 REFUGIO RN EMERGENCY ROOM, LIDIA A 461.9 Sinusitis Acute 08/07/2010 AZAEL BECKER, RAYMUNDO 461.9 Sinusitis Acute 08/07/2010 LUEVANO SHAWN GARSIAA K 461.9 Sinusitis Acute 08/07/2010 REFUGIO RN EMERGENCY ROOM, LIDIA A 461.9 Sinusitis Acute 08/07/2010 LUEVANO DO, MIKE K 461.9 Sinusitis Acute 08/07/2010 LUEVANO DO, MIKE K 461.9 Sinusitis Acute 08/07/2010 REFUGIO RN EMERGENCY ROOM, LIDIA A 461.9 Sinusitis Acute 10/02/2010 692.9 [...] MD 692.9 Dermatitis Contact Unspecified 10/02/2010 REFUGIO RN EMERGENCY ROOM, LIDIA A 692.9 Dermatitis Contact Unspecified 10/02/2010 REFUGIO RN EMERGENCY ROOM, LIDIA A 692.9 Dermatitis Contact Unspecified 10/02/2010 REFUGIO RN EMERGENCY ROOM, LIDIA A 692.9 Dermatitis Contact Unspecified 10/02/2010 REFUGIO RN EMERGENCY ROOM, LIDIA A 692.9 Dermatitis Contact Unspecified 10/02/2010 REFUGIO RN EMERGENCY ROOM, LIDIA A 692.9 Dermatitis Contact Unspecified 10/02/2010 REFUGIO RN EMERGENCY ROOM, LIDIA A 692.9 Dermatitis Contact Unspecified 10/02/2010 RAYMUNDO ADDISON MD 692.9 Dermatitis Contact Unspecified 10/02/2010 LUEVANO DO, MIKE K 692.9 Dermatitis Contact Unspecified 10/02/2010 REFUGIO RN EMERGENCY ROOM, LIDIA A 692.9 Dermatitis Contact Unspecified 10/02/2010 LUEVANO DO, MIKE K 692.9 Dermatitis Contact Unspecified 10/02/2010 LUEVANO DO, MIKE K 692.9 Dermatitis Contact Unspecified 10/02/2010 REFUGIO RN EMERGENCY ROOM, LIDIA A 692.9 Dermatitis Contact Unspecified 11/30/2010 057.9 Viral Exanthem Unspecified 11/30/2010 057.9 Viral Exanthem Unspecified 11/30/2010 057.9 Viral Exanthem Unspecified 11/30/2010 057.9 Viral Exanthem Unspecified 11/30/2010 SHAIDA BECKER, GARY 057.9 Viral Exanthem Unspecified 11/30/2010 057.9 Viral Exanthem Unspecified 11/30/2010 LUEVANO DO, MIKE K 057.9 Viral [place]hem Unspecified 11/30/2010 057.9 Viral Exanthem Unspecified 11/30/2010 057.9 Viral Exanthem Unspecified 11/30/2010 057.9 Viral Exanthem Unspecified 11/30/2010 SHADIA BECKER, GARY 057.9 Viral [place]anthem Unspecified 11/30/2010 REFUGIO RN EMERGENCY ROOM, LIDIA A 057.9 Viral [place]hem Unspecified 11/30/2010 REFUGIO RN EMERGENCY ROOM, LIDIA A 057.9 Viral [place]hem Unspecified 11/30/2010 REFUGIO RN EMERGENCY ROOM, LIDIA A 057.9 Viral [place] Unspecified 11/30/2010 REFUGIO RN EMERGENCY ROOM, LIDIA A 057.9 Viral [place] Unspecified 11/30/2010 REFUGIO RN EMERGENCY ROOM, LIDIA A 057.9 Viral [place] Unspecified 11/30/2010 REFUGIO RN EMERGENCY ROOM, LIDIA A 057.9 Viral Exanthem Unspecified 11/30/2010 AZAEL BECKER, RAYMUNDO 057.9 Viral Exanthem Unspecified 11/30/2010 LUEVANO DO, MIKE K 057.9 Viral [place] Unspecified 11/30/2010 REFUGIO RN EMERGENCY ROOM, LIDIA A 057.9 Viral [place] Unspecified 11/30/2010 LUEVANO DO, MIKE K 057.9 Viral [place]hem Unspecified 11/30/2010 LUEVANO DO, MIKE K 057.9 Viral [place] Unspecified 11/30/2010 REFUGIO RN EMERGENCY ROOM, LIDIA A 057.9 Viral Exanthem Unspecified 12/04/2010 [...] 053.9 Herpes Zoster Without Complication 12/04/2010 REFUGIO RN EMERGENCY ROOM, LIDIA A 053.9 Herpes Zoster Without Complication 12/04/2010 REFUGIO RN EMERGENCY ROOM, LIDIA A 053.9 Herpes Zoster Without Complication 12/04/2010 REFUGIO RN EMERGENCY ROOM, LIDIA A 053.9 Herpes Zoster Without Complication 12/04/2010 REFUGIO RN EMERGENCY ROOM, LIDIA A 053.9 Herpes Zoster Without Complication 12/04/2010 REFUGIO RN EMERGENCY ROOM, LIDIA A 053.9 Herpes Zoster Without Complication 12/04/2010 REFUGIO RN EMERGENCY ROOM, LIDIA A 053.9 Herpes Zoster Without Complication 12/04/2010 AZAEL BECKER, RAYMUNDO 053.9 Herpes Zoster Without Complication 12/04/2010 LUEVANO DO, MIKE K 053.9 Herpes Zoster Without Complication 12/04/2010 REFUGIO RN EMERGENCY ROOM, LIDIA A 053.9 Herpes Zoster Without Complication 12/04/2010 LUEVANO DO, MIKE K 053.9 Herpes Zoster Without Complication 12/04/2010 LUEVANO DO, MIKE K 053.9 Herpes Zoster Without Complication 12/04/2010 REFUGIO RN EMERGENCY ROOM, LIDIA A 053.9 Herpes Zoster Without Complication [...] And Abscess Of Unspecified Sites 01/16/2011 REFUGIO RN EMERGENCY ROOM, LIDIA A 919.4 Insect Bite Nonvenomous Of Other Multiple And Unspecified Sites Without Infection 01/16/2011 REFUGIO MEDINA, LIDIA A 682.9 Cellulitis And Abscess Of Unspecified Sites 01/16/2011 REFUGIO MEDINA LIDIA A 919.4 Insect Bite Nonvenomous Of Other Multiple And Unspecified Sites Without Infection 01/16/2011 REFUGIO RN EMERGENCY ROOM, LIDIA A 682.9 Cellulitis And Abscess Of Unspecified Sites 01/16/2011 REFUGIO RN EMERGENCY ROOM, LIDIA A 919.4 Insect Bite Nonvenomous Of Other Multiple And Unspecified Sites Without Infection 01/16/2011 REFUGIO RN EMERGENCY ROOM, LIDIA A 682.9 Cellulitis And Abscess Of Unspecified Sites 01/16/2011 REFUGIO RN EMERGENCY ROOM, LIDIA A 919.4 Insect Bite Nonvenomous Of Other Multiple And Unspecified Sites Without Infection 01/16/2011 REFUGIO RN EMERGENCY ROOM, LIDIA A 682.9 Cellulitis And Abscess Of Unspecified Sites 01/16/2011 REFUGIO RN EMERGENCY ROOM, LIDIA A 919.4 Insect Bite Nonvenomous Of [...] Multiple And Unspecified Sites Without Infection 01/16/2011 LEUVANO DO, MIKE K 682.9 Cellulitis And Abscess Of Unspecified Sites 01/16/2011 LUEVANO DO, MIKE K 919.4 Insect Bite Nonvenomous Of Other Multiple And Unspecified Sites Without Infection 01/16/2011 REFUGIO MEDINA LIDIA A 682.9 Cellulitis And Abscess Of Unspecified Sites 01/16/2011 REFUGIO RN EMERGENCY ROOM, LIDIA A 919.4 Insect Bite Nonvenomous Of Other Multiple And Unspecified Sites Without Infection 04/09/2011 626.8 DUB 04/09/2011 626.8 Dub 04/09/2011 626.8 Dub 04/09/2011 626.8 Dub 04/09/2011 GARY RENO MD 626.8 Dub 04/09/2011 626.8 Dub 04/09/2011 LUEVANO DO, MIKE K 626.8 Dub 04/09/2011 626.8 Dub 04/09/2011 626.8 Dub 04/09/2011 626.8 Dub 04/09/2011 GARY RENO MD 626.8 Dub 04/09/2011 REFUGIO RN EMERGENCY ROOM, LIDIA

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
[2018-05-01] MEDS: KETOROLAC 30 MG/ML VIAL IM ONE (20:48)
[2018-05-01 21:00] LABS: BILIRUBIN,URINE NEGATIVE (NEGATIVE); CLARITY,URINE CLEAR; COLOR,URINE YELLOW; GLUCOSE, URINE (UA) NEGATIVE (NEGATIVE); KETONES,URINE NEGATIVE (NEGATIVE); LEUKOCYTE ESTERASE ,URINE NEGATIVE (NEGATIVE); NITRITE,URINE NEGATIVE (NEGATIVE); PH,URINE 7 (5-9); PROTEIN,URINE NEGATIVE (NEGATIVE); UROBILINOGEN,URINE NORMAL (NORMAL)
[2018-05-01 21:06] LABS: BACTERIA,URINE TRACE /HPF; SQUAMOUS EPITHELIAL CELL,UR 25-50 /HPF; WBC,URINE RARE /HPF
[2018-05-01 21:11] LABS: AMPHETAMINE SCREEN, URINE NEGATIVE (NEGATIVE); BARBITURATE SCREEN URINE NEGATIVE (NEGATIVE); BENZODIAZEPINES SCREEN URINE NEGATIVE (NEGATIVE); CANNABINOID SCREEN, URINE NEGATIVE (NEGATIVE); COCAINE SCREEN URINE NEGATIVE (NEGATIVE); METHADONE STAT NEGATIVE (NEGATIVE); METHAMPHETAMINE SCREEN URINE S NEGATIVE (NEGATIVE); OPIATE SCREEN URINE NEGATIVE (NEGATIVE); OXYCODONE STAT NEGATIVE (NEGATIVE); PROPOXYPHENE STAT NEGATIVE (NEGATIVE); TRICYCLIC ANTIDEPRESSANTS SCRE NEGATIVE (NEGATIVE)
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
[2018-05-01] MEDS ORDERED: ONDA4TAB11 PO (22:14)
[2018-05-01 22:23] VITALS: BP 115/63
== END 2018-05-01 22:28 | disposition home or self-care (01) ==
LOC: EDUNIT# 20:19 → ER 20:21
DX: S06.0X1A Concussion with loss of consciousness of 30 minutes or less, initial encounter (principal); S80.211A Abrasion, right knee, initial encounter; S80.212A Abrasion, left knee, initial encounter; F41.9 Anxiety disorder, unspecified; F31.9 Bipolar disorder, unspecified; Z77.22 Contact with and (suspected) exposure to environmental tobacco smoke (acute) (chronic); Z90.89 Acquired absence of other organs; Z87.448 Personal history of other diseases of urinary system; Y04.8XXA Assault by other bodily force, initial encounter
CPT/HCPCS: 70450; 70486; 72125; 80306; 81000; 84703; 96372

== ENCOUNTER 2018-06-29 14:10 | Emergency (ER) | payer SELFPAY ==
[~2018-06-29] VITALS: Ht 175.3 cm; Wt 75.3 kg
--- OUTSIDE RECORDS SUMMARY | 2018-06-29 14:16 | XMS REPORT ---
Author Author JHOANA KRAUS [facility] Address [address] [place] [address] Care Team Providers [employer] Name Role Phone JHOANA KRAUS Unavailable PROBLEMS Type Condition ICD9-CM Code YAS99-QV Code Onset Dates Condition Status SNOMED Code Problem Irregular menses N92.6 Active 23069535 Problem Generalized anxiety disorder F41.1 Active 80909996 Problem Unspecified mood [affective] disorder F39 Active 754408777 Problem PCOS (polycystic ovarian syndrome) E28.2 Active 32039718 Problem IBS (irritable bowel syndrome) K58.9 Active 54331809 Problem Tobacco abuse Z72.0 Active 17561857 Problem Tobacco abuse counseling Z71.6 Active 088314274 Problem Abnormal uterine bleeding N93.9 Active 23181328099859 Problem Other chronic pain G89.29 Active 15722772 Problem History of drug dependence/abuse F19.21 Active Problem Chronic posttraumatic stress disorder F43.12 Active 921078974 Problem Bipolar II disorder F31.81 Active 80019323 Problem PTSD (post-traumatic stress disorder) F43.10 Active 81454848 ALLERGIES No Information ENCOUNTERS Encounter Location Date Diagnosis [facility] [id number], [place] [address] May, [facility] [address], [place] [address] 4[address] May, [facility] [address], [place] [address] 1379 May, [facility] [id number] [place] [address] 74762- 6814 May, [facility] [id number], [place] [address] 9885 May, [facility] [id number] [place] [address] 20026- 1604 May, Concussion with loss of consciousness, initial encounter S06.0X9A [facility] [id number] [place] [address] 33100- 3951 09 Mar, 2018 Upper respiratory infection, viral J06.9 and Dysuria R30.0 [facility] [id number] [place] [address] [id number] Mar, Dental examination Z01.20 [facility] [address] [id number] Mar, Dental examination Z01.20 [facility] [address] [id number] 19 Mar, 2018 Caries K02.9 [facility] [address] [id number] 13 Mar, 2018 Dental examination Z01.20 [facility] [id number] [place] [address] 14213- 1982 17 Dec, 2017 [facility] [id number] [place] [address] 73604- 7662 Dec, [facility] [id number] [place] [address] 25161- 6826 Nov, Irregular menses N92.6 ; Abnormal uterine bleeding N93.9 ; History of PCOS Z87.42 and History of unprotected sex Z72.51 [facility] [id number] [place] [address] 99965- 7773 October, [facility] [id number] [place] [address] 32524- 8967 October, Low back pain M54.5 ; Dysuria R30.0 ; Other chronic pain G89.29 and Routine gynecological examination Z01.419 [facility] [id number] [place] [address] 61762- 5851 October, Dysuria R30.0 and Vaginal discharge N89.8 [facility] [id number] [place] [address] 28909- 6131 Sep, Bipolar II disorder F31.81 ; PTSD (post-traumatic stress disorder) F43.10 ; Generalized anxiety disorder F41.1 and History of drug dependence/abuse F19.21 [facility] [id number] [place] [address] 89772- 4608 Sep, Unspecified mood [affective] disorder F39 and Post- traumatic stress disorder, unspecified F43.10 [facility] [id number] [place] [address] 20199- 7179 Aug, PCOS (polycystic ovarian syndrome) E28.2 ; Recurrent major depressive disorder, in full remission F33.42 ; IBS (irritable bowel syndrome) K58.9 and Tobacco abuse Z72.0 [facility] [id number] [place] [address] 71115- 7232 Aug, Generalized anxiety disorder F41.1 and Depressive disorder, not elsewhere classified F32.9 [facility] [id number] [place] [address] 03790- 6521 Aug, PCOS (polycystic ovarian syndrome) E28.2 ; Recurrent major depressive disorder, in full remission F33.42 ; IBS (irritable bowel syndrome) K58.9 ; Tobacco abuse Z72.0 ; Tobacco abuse counseling Z71.6 ; Dysuria R30.0 ; Irregular menses N92.6 ; Vaginal candidiasis B37.3 and Acute cystitis without hematuria N30.00 [facility] [id number] [place] [address] 85054- 6284 May, [facility] [id number] [place] [address] 09677- 5817 18 Mar, 2017 Vaginal discharge N89.8 and Recurrent candidiasis of vagina B37.3 [facility] [id number] [place] [address] 92223- 6928 13 Mar, 2017 Nausea and vomiting in adult R11.2 ; Sore throat J02.9 and Diarrhea, unspecified type R19.7 [facility] [id number] [place] [address] 87415- 4585 Mar, [facility] [address] 27522- 6957 Jan, Vaginal discharge N89.8 ; Dysuria R30.0 ; High risk sexual behavior Z72.51 ; Major depressive disorder, single episode F32.9 and Vaginal candidiasis B37.3 [facility] [address] 16058- 1756 Jan, Anxiety F41.9 [facility] [address] 21926- 4169 Dec, [facility] [address] 60314- 4074 Nov, Generalized anxiety disorder F41.1 ; Depressive disorder, not elsewhere classified F32.9 ; History of drug dependence/abuse F19.21 and 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 [facility] [id number] [place] [address] 17605- 0403 Nov, Vaginal discharge N89.8 ; High risk sexual behavior Z72.51 ; Potential exposure to STD Z20.2 and Vaginal candidiasis B37.3 [facility] [id number] [place] [address] 23598- 8769 Nov, History of drug dependence/abuse F19.21 and Major depressive disorder, single episode F32.9 [facility] [id number] [place] [address] 93370- 3726 Nov, Right medial knee pain M25.561 [facility] [address] 18543- 8708 October, Nausea and vomiting, intractability of vomiting not specified, unspecified vomiting type R11.2 and Acute pyelonephritis N10 [facility] [id number] [place] [address] 50258- 0914 Sep, Major depressive disorder, single episode F32.9 ; Alcohol abuse F10.10 and Tobacco abuse Z72.0 [facility] [id number] [place] [address] 91226- 5582 Sep, Major depressive disorder, single episode F32.9 ; Alcohol abuse F10.10 and History of drug dependence/abuse F19.21 [facility] [id number] [place] [address] 37479- 3617 Sep, Major depressive disorder, single episode F32.9 [facility] [id number] [place] [address] 56171 -3152 Aug, Acute cystitis with hematuria N30.01 and Dysuria R30.0 [facility] [address] 39060- 9682 Aug, Dysuria R30.0 ; Vaginal candidiasis B37.3 ; Vaginal discharge N89.8 and High risk sexual behavior Z72.51 [facility] [address] 61189- 5489 Jul, [facility] [address] 54907- 4363 Jul, Major depressive disorder, single episode F32.9 ; History of drug dependence/abuse F19.21 ; Alcohol abuse F10.10 and Tobacco abuse Z72.0 [facility] [id number] [place] [address] [id number] May, Dental examination Z01.20 and Dental caries K02.9 [facility] [id number] [place] [address] 09247- 5827 May, Fatigue, unspecified type R53.83 and Cough R05 [facility] [address] 37887- 9282 May, [facility] [id number] [place] [address] 37441- 3578 Mar, [facility] [address] 79251- 7377 Mar, [facility] [id number] [place] [address] 29280- 0901 Mar, [facility] [address] 41661- 5789 Mar, [facility] [address] 93012- 9764 Mar, Absence of menstruation N91.2 ; Vagina itching L29.8 ; History of drug dependence/abuse F19.21 ; History of PID Z87.42 and Acute cystitis without hematuria N30.00 [facility] [address] 58868- 4217 08 Sep, 2015 Routine health maintenance Z00.00 ; Late menses N91.0 ; History of drug dependence/abuse F19.21 ; Alcohol abuse F10.10 ; Tobacco abuse Z72.0 ; Tobacco abuse counseling Z71.6 and Back pain M54.9 [facility] [address] [id number] Aug, Dental examination Z01.20 and Dental caries K02.9 [facility] [address] 74168- 3858 Jul, [facility] [address] 04261- 7735 14 Jul, 2015 Surveillance of contraceptive injection Z30.42 [facility] [address] 76521- 5967 13 Jul, 2015 Routine screening for STI (sexually transmitted infection) Z11.3 ; Drug use F19.90 ; Counseling on substance use and abuse Z71.89 ; Unprotected sexual intercourse Z72.51 ; Encounter for counseling regarding contraception Z30.9 ; Vaginal discharge N89.8 and Skin lesions L98.9 [facility] [id number] [place] [address] 56094- 9461 May, [facility] [address] 43304- 1608 May, Yeast infection B37.9 [facility] [id number] [place] [address] 729278- 7136 19 May, 2015 Excessive and frequent menstruation with irregular cycle N92.1 ; Other fatigue R53.83 ; General counseling and advice for contraceptive management Z30.09 ; Evaluation for contraceptive injection Z30.013 ; Cough R05 ; Vaginal irritation N89.8 and Dizziness R42 [facility] [id number] [place] [address] 140000- 7891 14 Sep, 2014 [facility] [id number] [place] [address] 19711- 4454 Sep, [facility] [id number] [place] [address] 961044- 7914 Aug, [facility] [id number] [place] [address] 68993- 4409 Aug, [facility] [id number] [place] [address] 85422- 3390 Aug, [facility] [id number] [place] [address] 00151- 6885 Aug, [facility] [id number] [place] [address] 02164- 5886 Aug, [facility] [id number] [place] [address] 75363- 1703 Aug, [facility] [id number] [place] [address] 73449- 1357 Aug, [facility] [address] [place] [address] 924361- 7176 Aug, [facility] [id number] [place] [address] 06083- 6896 Aug, [facility] [id number], [place] [address]- 9336 Aug, [facility] [id number] [place] [address]- 7024 Aug, [facility] [place] [facility] [address] [id number] [place] [address]- 8269 Aug, [facility] [place] [facility] [address] [id number] [place] [address]- 6132 Jul, [facility] [place] [facility] [address] [id number] [place] [address]- 5444 Jul, [facility] [place] [facility] [address] [id number] [place] [address]- 4367 May, [facility] [place] [facility] [address] [id number] [place] [address]- 8097 May, [facility] [place] [facility] [address] [id number] [place] [address]- 5338 May, [facility] [place] [facility] [address] [id number] [place] [address]- 2401 May, [facility] [place] [facility] [address] [id number] [place] [address]- 6973 Mar, [facility] [place] [facility] [address] [id number] [place] [address]- 1453 Mar, [facility] [place] [facility] [address] [id number] [place] [address]- 4537 Mar, [facility] [place] [facility] [address] [id number] [place] [address]- 7405 Mar, [facility] [place] [facility] [address] [id number] [place] [address]- 6367 Mar, [facility] [place] [facility] [address] [id number] [place] [address]- 9784 Mar, [facility] [place] [facility] [address] [id number] [place] 5099 Mar, [facility] [place] [facility] [address] [id number] [place] [address]- 0926 Mar, [facility] [place] [facility] [address] [id number] [place] [address]- 1733 Mar, [facility] [place] [facility] [address] [id number] [place] [address]- 6473 Mar, [facility] [place] [facility] [address] [id number] [place]- 3470 Jan, [facility] [place] [facility] [address] [id number] [place] [address]- 2795 Jan, [facility] [place] [facility] [address] [id number] [place] [address]- 7241 Nov, [facility] [place] [facility] [address] [id number] [place] [address]- 0905 Nov, [facility] [place] [facility] [address] [id number] [place] [address]- 4690 October, [facility] [place] [facility] [address] [id number] [place] [address]- 2172 October, [facility] [place] [facility] [address] [id number] [place] [address]- 0918 October, [facility] [place] [facility] [address] [id number] [place] [address]- 7138 October, [facility] [place] [facility] [address] [id number] [place] [address]- 8263 October, [facility] [place] [facility] [address] [id number], [place] [address]- 8719 October, [facility] [place] [facility] [address] [id number] [place] [address]- 4017 October, [facility] [place] [facility] [address] [id number] [place] [address]- 0008 October, [facility] [place] [facility] [address] [id number] [place] [address]- 0657 Sep, [facility] [place] [facility] [address] [id number] [place] [address]- 4610 Sep, [facility] [address] [id number] [place] [address]- 4623 Aug, [facility] [place] [facility] [address] [id number] [place] [address]- 6277 Aug, [facility] [place] [facility] [address] [facility] [id number] [place] [address]- 6414 Aug, [facility] [place] [facility] [address] [id number] [place] [address]- 2244 Aug, [facility] [address] [facility] [id number] [place] [address]- 6827 May, [facility] [place] [facility] [address] [facility] [id number] [place] [address]- 3200 May, [facility] [place] [facility] [address] [place] [address]- 0277 May, [facility] [address] [facility] [id number] [place] [address]- 5258 May, [facility] [place] [facility] [address] [place] [address]- 6858 May, [facility] [address] [facility] [id number] [place] [address]- 2846 May, [facility] [place] [facility] [address] [facility] [id number] [place] [address]- 7741 May, [facility] [place] [facility] [address] [facility] [id number], [place] [address]- 8840 18 May, 2013 [facility] [place] [facility] [address] [facility] [id number] [place] 4608 16 Mar, 2013 [facility] [place] [facility] [address] [facility] [id number] [place] 3533 16 Mar, 2013 [facility] [place] [facility] [address] [facility] [id number] [place] 6149 Mar, [facility] [address] [id number] [place] [address]- 4833 Jan, [facility] [place] [facility] [address] [id number] [place] [address]- 6466 Jan, [facility] [place] [facility] [address] [id number] [place] [address]- 4046 Dec, [facility] [place] [facility] [address] [id number] [place] [address]- 9106 Dec, [facility] [address] [id number] [place] [address]- 7634 Dec, [facility] [place] [facility] [address] [id number] [place] [address]- 6816 Sep, [facility] [address] [id number] [place] [address]- 6036 Aug, [facility] [address] [id number] [place] [address]- 7230 Aug, [facility] [place] [facility] [address] [id number] [place] [address]- 1123 18 Aug, 2012 [facility] [place] [facility] [address] [id number] [place] [address]- 8646 15 Aug, 2012 [facility] [place] [facility] [address] [id number] [place] [address]- 6796 14 Aug, 2012 [facility] [place] [facility] [address] [id number], [place] [address]- 5976 11 Aug, 2012 [facility] [place] [facility] [address] [id number] [place] [address]- 9013 16 Jul, 2012 [facility] [place] [facility] [address] [id number] [place] [address]- 8686 15 Jul, 2012 [facility] [place] [facility] [address] [id number] [place] [address]- 4266 07 Jul, 2012 [facility] [place] [facility] [address] [id number], [place] [address]- 6961 Jul, [facility] [place] [facility] [address] [id number] [place] [address]- 7257 Jul, [facility] [place] [facility] [address] [id number] [place] [address]- 1138 Jul, [facility] [place] [facility] [address] [facility] [id number] [place] [address]- 9425 May, [facility] [place] [facility] [address] [id number] [place] [address]- 5183 May, [facility] [place] [facility] [address] [id number] [place] [address]- 9835 May, [facility] [place] [facility] [address] [id number] [place] [address]- 2798 May, [facility] [place] [facility] [id number] [place] [address]- 6344 May, [facility] [place] [facility] [address] [facility] [id number] [place] [address]- 8546 May, [facility] [place] [facility] [address] [facility] [id number] [place] [address]- 4322 Mar, [facility] [place] [facility] [address] [facility] [id number] [place] [address]- 4608 Mar, [facility] [place] [facility] [address] [facility] [id number], [place] [address]- 0724 Mar, [facility] [place] [facility] [address] [facility] [id number], [place] [address]- 9539 Mar, [facility] [place] [facility] [address] [id number] [place] [address]- 4908 Mar, [facility] [place] [facility] [address] [facility] [id number], [place] [address]- 5394 Mar, [facility] [place] [facility] [address] [facility] [id number] [place] [address]- 0229 Mar, [facility] [place] [facility] [address] [id number] [place] [address]- 2036 18 Dec, 2011 [facility] [place] [facility] [address] [id number] [place] [address]- 5046 28 Nov, 2011 [facility] [place] [facility] [address] [id number] [place] [address]- 6426 Sep, [facility] [place] [facility] [address] [id number] [place] [address]- 3750 29 Aug, 2011 [facility] [place] [facility] [address] [id number] [place] [address]- 0243 Aug, [facility] [place] [facility] [address] [id number] [place] [address]- 6700 Aug, [facility] [place] [facility] [address] [id number] [place] [address]- 6147 Aug, [facility] [place] [facility] [address] [id number] [place] [address]- 6621 Aug, [facility] [place] [facility] [address] [id number] [place] [address]- 3172 Aug, [facility] [place] [facility] [address] [id number] [place] [address]- 7517 Jul, [facility] [place] [facility] [address] [id number] [place] [address]- 5383 Jul, [facility] [place] [facility] [address] [id number] [place] [address]- 9463 Jul, [facility] [place] [facility] [address] [id number] [place] [address]- 6544 May, [facility] [place] [facility] [address] [id number] [place] [address]- 5346 May, [facility] [place] [facility] [address] [id number] [place] [address]- 7046 Mar, [facility] [place] [facility] [address] [id number] [place] [address]- 0333 24 Mar, 2011 [facility] [place] [facility] [address] [id number] [place] [address]- 4430 10 Mar, 2011 [facility] [place] [facility] [address] [id number] [place] [address] 10 Mar, 2011 [facility] [place] [facility] [address] [id number] [place] [address] 19 Dec, 2010 [facility] [place] [facility] [address] [id number] [place] [address] 14 May, 2010 [facility] [place] [facility] [address] [id number] [place] [address] 06 May, 2010 [facility] [place] [facility] [address] [id number] [place] [address] 22 May, 2010 [facility] [place] [facility] [address] [id number] [place] [address] 14 Mar, 2010 [facility] [place] [facility] [address] [id number] [place] [address] 14 Mar, 2010 [facility] [place] [facility] [address] [id number] [place] [address] Jan, [facility] [place] [facility] [address] [id number] [place] [address] 18 Aug, 2009 [facility] [place] [facility] [address] [id number], [place] [address] 31 May, 2009 [facility] [place] [facility] [address] [id number], [place] [address] May, [facility] [place] [facility] [address] [id number] [place] [address] 16 May, 2009 [facility] [place] [facility] [address] [id number], [place] [address] 16 May, 2009 [facility] [place] [facility] [address] [id number] [place] [address] May, [facility] [place] [facility] [address] [facility] [id number] [place] [address] 21 Mar, 2009 [facility] [address] [id number], [place] [address] 10 Jul, 2006 [facility] [address] [id number], [place] [address] 14 May, 2006 [facility] [address] [id number], [place] [address] Mar, [facility] [address] [id number] [id number] Sep, [facility] [address] [facility] [id number], [place] [address] Jul, IMMUNIZATIONS No Known Immunizations SOCIAL HISTORY Never Assessed REASON FOR VISIT Work Note PLAN OF CARE VITAL SIGNS MEDICATIONS Unknown [...]
--- OUTSIDE RECORDS SUMMARY | 2018-06-29 14:17 | XMS REPORT ---
Author Author JHOANA KRAUS [facility] Address [address] [place] [address] Care Team Providers Care Supervisor [employer] Name Role Phone JHOANA KRAUS Unavailable PROBLEMS Type Condition ICD9-CM Code ATO02-DW Code Onset Dates Condition Status SNOMED Code Problem Irregular menses N92.6 Active 48906830 Problem Generalized anxiety disorder F41.1 Active 34996857 Problem Unspecified mood [affective] disorder F39 Active 347972566 Problem PCOS (polycystic ovarian syndrome) E28.2 Active 43442124 Problem IBS (irritable bowel syndrome) K58.9 Active 00663865 Problem Tobacco abuse Z72.0 Active 26332272 Problem Tobacco abuse counseling Z71.6 Active 917211981 Problem Abnormal uterine bleeding N93.9 Active 14669802005882 Problem Other chronic pain G89.29 Active 97003104 Problem History of drug dependence/abuse F19.21 Active Problem Chronic posttraumatic stress disorder F43.12 Active 861294051 Problem Bipolar II disorder F31.81 Active 55036468 Problem PTSD (post-traumatic stress disorder) F43.10 Active 15256451 ALLERGIES No Information ENCOUNTERS Encounter Location Date Diagnosis [facility] [id number], [place] [address] May, [facility] [id number] [place] [address] 56999- 8387 May, [facility] [id number], [place] [address] 2[address] May, [facility] [id number] [place] [address] 29119- 8572 May, [facility] [id number], [place] [address] May, Concussion with loss of consciousness, initial encounter S06.0X9A [facility] [id number] [place] [address] 50939- 9305 09 Mar, 2018 Upper respiratory infection, viral J06.9 and Dysuria R30.0 [facility] [id number] [place] [address] [id number] 25 Mar, 2018 Dental examination Z01.20 [facility] [id number] [place] [address] [id number] 21 Mar, 2018 Dental examination Z01.20 [facility] [id number] [place] [address] [id number] 19 Mar, 2018 Caries K02.9 [facility] [address] [id number] 13 Mar, 2018 Dental examination Z01.20 [facility] [id number] [place] [address] 59696- 5199 17 Dec, 2017 [facility] [address] 19315- 2332 Dec, [facility] [id number] [place] [address] 90657- 2036 Nov, Irregular menses N92.6 ; Abnormal uterine bleeding N93.9 ; History of PCOS Z87.42 and History of unprotected sex Z72.51 [facility] [id number] [place] [address] 13802- 4436 October, [facility] [address] [address]- 5423 October, Low back pain M54.5 ; Dysuria R30.0 ; Other chronic pain G89.29 and Routine gynecological examination Z01.419 [facility] [address] [address]31- 9415 October, Dysuria R30.0 and Vaginal discharge N89.8 [facility] [id number] [place] [address] 43210- 5201 Sep, Bipolar II disorder F31.81 ; PTSD (post-traumatic stress disorder) F43.10 ; Generalized anxiety disorder F41.1 and History of drug dependence/abuse F19.21 [address] [address] [address]- 0548 Sep, Unspecified mood [affective] disorder F39 and Post- traumatic stress disorder, unspecified F43.10 [place] [address] 28785- 9707 Aug, PCOS (polycystic ovarian syndrome) E28.2 ; Recurrent major depressive disorder, in full remission F33.42 ; IBS (irritable bowel syndrome) K58.9 and Tobacco abuse Z72.0 [place] [address] 60323- 8550 Aug, Generalized anxiety disorder F41.1 and Depressive disorder, not elsewhere classified F32.[address] 26349- 9062 Aug, PCOS (polycystic ovarian syndrome) E28.2 ; Recurrent major depressive disorder, in full remission F33.42 ; IBS (irritable bowel syndrome) K58.9 ; Tobacco abuse Z72.0 ; Tobacco abuse counseling Z71.6 ; Dysuria R30.0 ; Irregular menses N92.6 ; Vaginal candidiasis B37.3 and Acute cystitis without hematuria N30.00 [place] [id number] [place] [address] 84146- 5274 May, [place] [address] 96671- 8180 18 Mar, 2017 Vaginal discharge N89.8 and Recurrent candidiasis of vagina B37.3 [place] [id number] [place] [address] 08729- 1748 13 Mar, 2017 Nausea and vomiting in adult R11.2 ; Sore throat J02.9 and Diarrhea, unspecified type R19.7 [place] [address] 00671- 2366 11 Mar, [id number] [place] [address] 39373- 1429 Jan, Vaginal discharge N89.8 ; Dysuria R30.0 ; High risk sexual behavior Z72.51 ; Major depressive disorder, single episode F32.9 and Vaginal candidiasis B37.3 [place] [id number] [place] [address] 44908- 8139 Jan, Anxiety F41.9 [place] [address] 30506- 3303 Dec, [place] [address] 21837- 0431 Nov, Generalized anxiety disorder F41.1 ; Depressive disorder, not elsewhere classified F32.9 ; History of drug dependence/abuse F19.21 and 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 [place] [address] 49975- 5594 Nov, Vaginal discharge N89.8 ; High risk sexual behavior Z72.51 ; Potential exposure to STD Z20.2 and Vaginal candidiasis B37.3 [place] [address] 67995- 5154 Nov, History of drug dependence/abuse F19.21 and Major depressive disorder, single episode F32.9 [place] [id number] [place] [address] 60242- 9527 Nov, Right medial knee pain M25.561 [place] [id number] [place] [address] 93473- 3044 October, Nausea and vomiting, intractability of vomiting not specified, unspecified vomiting type R11.2 and Acute pyelonephritis N10 [place] [id number] [place] [address] 38770- 5748 Sep, Major depressive disorder, single episode F32.9 ; Alcohol abuse F10.10 and Tobacco abuse Z72.0 [place] [address] 26651- 8851 Sep, Major depressive disorder, single episode F32.9 ; Alcohol abuse F10.10 and History of drug dependence/abuse F19.21 [facility] [id number] [place] [address] 71028- 0677 Sep, Major depressive disorder, single episode F32.9 [facility] [id number] [place] [address] 22271 -3409 Aug, Acute cystitis with hematuria N30.01 and Dysuria R30.0 [facility] [id number] [place] [address] 35183- 0873 Aug, Dysuria R30.0 ; Vaginal candidiasis B37.3 ; Vaginal discharge N89.8 and High risk sexual behavior Z72.51 [facility] [id number] [place] [address] 45477- 4450 Jul, [facility] [address] 29071- 8669 Jul, Major depressive disorder, single episode F32.9 ; History of drug dependence/abuse F19.21 ; Alcohol abuse F10.10 and Tobacco abuse Z72.0 [facility] [id number] [place] [address] [id number] May, Dental examination Z01.20 and Dental caries K02.9 [place] [id number] [place] [address] 15501- 6678 May, Fatigue, unspecified type R53.83 and Cough R05 [facility] [id number] [place] [address] 42226- 3623 May, [facility] [address] 35076- 3651 Mar, [facility] [id number] [place] [address] 59207- 5838 Mar, [facility] [address] 34609- 8920 Mar, [place] [address] 21989- 6311 Mar, [address] 21270- 9827 10 Mar, 2016 Absence of menstruation N91.2 ; Vagina itching L29.8 ; History of drug dependence/abuse F19.21 ; History of PID Z87.42 and Acute cystitis without hematuria N30.[address] 73866- 5842 08 Sep, 2015 Routine health maintenance Z00.00 ; Late menses N91.0 ; History of drug dependence/abuse F19.21 ; Alcohol abuse F10.10 ; Tobacco abuse Z72.0 ; Tobacco abuse counseling Z71.6 and Back pain M54.9 [facility] [address] [id number] Aug, 2015 Dental examination Z01.20 and Dental caries K02.[address] 40870- 4545 Jul, [address] 92670- 3652 14 Jul, 2015 Surveillance of contraceptive injection Z30.[address] 80080- 0674 13 Jul, 2015 Routine screening for STI (sexually transmitted infection) Z11.3 ; Drug use F19.90 ; Counseling on substance use and abuse Z71.89 ; Unprotected sexual intercourse Z72.51 ; Encounter for counseling regarding contraception Z30.9 ; Vaginal discharge N89.8 and Skin lesions L98.[address] 87957- 8012 May, [address] 17349- 3208 May, Yeast infection B37.[address] [place] [address]- 1962 19 May, 2015 Excessive and frequent menstruation with irregular cycle N92.1 ; Other fatigue R53.83 ; General counseling and advice for contraceptive management Z30.09 ; Evaluation for contraceptive injection Z30.013 ; Cough R05 ; Vaginal irritation N89.8 and Dizziness R42 [facility] [id number] [address]- 8835 14 Sep, 2014 [facility] [id number] [place] [address] 656279- 7088 13 Sep, 2014 [facility] [id number] [place] [address] 882323- 1006 Aug, [facility] [id number] [place] [address] 886230- 8494 Aug, [facility] [id number] [place] [address] 799181- 8165 Aug, [facility] [id number] [place] [address] 09473- 2964 Aug, [facility] [id number] [place] [address] 169397- 1660 Aug, [facility] [id number] [place] [address] 42511- 5424 Aug, [facility] [id number] [place] [address] 86268- 3647 Aug, [facility] [id number] [place] [address] 67736- 2749 Aug, [facility] [address] [place] [address] 29257- 7856 Aug, [facility] [id number] [place] [address] 09258- 6106 Aug, [facility] [address] [place] [address]- 5036 Aug, [facility] [place] [facility] [address] [facility] [id number] [place] [address]- 2637 Aug, [facility] [place] [facility] [address] [id number] [place] [address]- 1393 Jul, [facility] [place] [facility] [address] [id number] [place] [address]- 3717 Jul, [facility] [place] [facility] [address] [id number] [place] [address]- 4344 May, [facility] [place] [facility] [address] [id number] [place] [address]- 3986 May, [facility] [place] [facility] [address] [id number] [place] [address]- 3097 May, [facility] [place] [facility] [address] [id number] [place] [address]- 8911 May, [facility] [place] [facility] [address] [id number] [place] [address]- 1757 Mar, [facility] [place] [facility] [address] [id number] [place] [address]- 6460 Mar, [facility] [place] [facility] [address] [id number] [place] [address]- 6002 Mar, [facility] [place] [facility] [address] [id number] [place] [address]- 8365 Mar, [facility] [place] [facility] [address] [id number] [place] [address]- 0821 Mar, [facility] [place] [facility] [address] [id number] [place] [address]- 2686 Mar, [facility] [place] [facility] [address] [id number] [place] 6915 Mar, [facility] [place] [facility] [address] [id number] [place] [address]- 2387 Mar, [facility] [place] [facility] [address] [id number] [place] [address]- 5058 Mar, [facility] [place] [facility] [address] [id number] [place] [address]- 0368 Mar, [facility] [place] [facility] [address] [id number] [place] [address]- 9973 Jan, [facility] [place] [facility] [address] [id number] [place] [address]- 2716 Jan, [facility] [place] [facility] [address] [id number] [place] [address]- 2463 Nov, [facility] [place] [facility] [address] [id number] [place] [address]- 2421 Nov, [facility] [place] [facility] [address] [id number] [place] [address]- 6519 October, [facility] [place] [facility] [address] [id number] [place] [address]- 6824 October, [facility] [place] [facility] [address] [id number] [place] [address]- 2775 October, [facility] [place] [facility] [address] [id number] [place] [address]- 3671 October, [facility] [place] [facility] [address] [id number] [place] [address]- 1906 October, [facility] [place] [facility] [address] [id number] [place] [address]- 0752 October, [facility] [place] [facility] [address] [id number] [place] [address]- 9639 October, [facility] [place] [facility] [address] [id number] [place] [address]- 3276 October, [facility] [place] [facility] [address] [id number] [place] [address]- 5109 Sep, [facility] [place] [facility] [address] [id number] [place] [address]- 9177 Sep, [facility] [place] [facility] [address] [id number] [place] [address]- 6995 Aug, 2013 [facility] [address] [id number] [place] [address]- 4912 Aug, 2013 [facility] [place] [facility] [address] [id number] [place] [address]- 0463 Aug, [facility] [place] [facility] [address] [id number] [place] [address]- 8332 Aug, [facility] [place] [facility] [address] [id number] [place] [address]- 1618 May, [facility] [address] [id number] [place] [address]- 0054 May, [facility] [place] [facility] [address] [id number] [place] [address]- 3177 May, [facility] [place] [facility] [address] [facility] [id number] [place] [address]- 5358 May, [facility] [place] [facility] [address] [facility] [id number] [place] [address]- 8452 May, [facility] [place] [facility] [address] [facility] [id number] [place] [address]- 9108 May, [facility] [place] [facility] [address] [facility] [id number] [place] [address]- 5733 May, [facility] [place] [facility] [address] [facility] [id number] [place] [address]- 1415 May, [facility] [place] [facility] [address] [id number] [place] [address]- 8153 Mar, [facility] [place] [facility] [address] [facility] [id number] [place] 8012 Mar, [facility] [place] [facility] [address] [facility] [id number] [place] 2655 Mar, [facility] [place] [facility] [address] [facility] [id number] [place] [address]- 1704 Jan, [facility] [address] [id number] [place] [address]- 0055 Jan, [facility] [place] [facility] [address] [id number] [place] [address]- 0774 Dec, [facility] [place] [facility] [address] [id number] [place] [address]- 0400 Dec, [facility] [place] [facility] [address] [id number] [place] [address]- 7001 Dec, [facility] [address] [id number] [place] [address]- 0369 Sep, [facility] [place] [facility] [address] [id number] [place] [address]- 9076 Aug, [facility] [place] [facility] [address] [id number] [place] [address]- 7308 Aug, [facility] [address] [id number] [place] [address]- 8818 18 Aug, 2012 [facility] [place] [facility] [address] [id number] [place] [address]- 7887 15 Aug, 2012 [facility] [place] [facility] [address] [id number] [place] [address]- 0540 14 Aug, 2012 [facility] [place] [facility] [address] [id number] [place] [address]- 3668 Aug, [facility] [place] [facility] [address] [id number], [place] [address]- 7743 16 Jul, 2012 [facility] [place] [facility] [address] [id number] [place] [address]- 4114 15 Jul, 2012 [facility] [place] [facility] [address] [id number] [place] [address]- 0826 Jul, [facility] [place] [facility] [address] [id number] [place] [address]- 5421 04 Jul, 2012 [facility] [place] [facility] [address] [id number], [place] [address]- 6800 Jul, [facility] [place] [facility] [address] [id number] [place] [address]- 0853 Jul, [facility] [place] [facility] [address] [id number] [place] [address]- 1620 May, [facility] [place] [facility] [address] [facility] [id number] [place] [address]- 5326 May, [facility] [place] [facility] [address] [id number] [place] [address]- 7725 May, [facility] [place] [facility] [address] [id number] [place] [address]- 3201 May, [facility] [place] [facility] [address] [id number] [place] [address]- 0206 May, [facility] [place] [facility] [address] [facility] [id number] [place] [address]- 7732 May, [facility] [place] [facility] [address] [id number] [place] [address]- 1583 Mar, [facility] [place] [facility] [address] [facility] [id number] [place] [address]- 3909 Mar, [facility] [place] [facility] [address] [facility] [id number] [place] [address]- 4796 Mar, [facility] [place] [facility] [address] [facility] [id number], [place] [address]- 0790 Mar, [facility] [place] [facility] [address] [facility] [id number], [place] [address]- 3014 Mar, [facility] [place] [facility] [address] [id number] [place] [address]- 7743 Mar, [facility] [place] [facility] [address] [facility] [id number], [place] [address]- 8123 Mar, [facility] [place] [facility] [address] [facility] [id number] [place] [address]- 6050 Dec, [facility] [place] [facility] [address] [id number] [place] [address]- 0433 28 Nov, 2011 [facility] [place] [facility] [address] [id number] [place] [address]- 5952 18 Sep, 2011 [facility] [place] [facility] [address] [id number] [place] [address]- 0746 29 Aug, 2011 [facility] [place] [facility] [address] [id number] [place] [address]- 9946 Aug, [facility] [place] [facility] [address] [id number] [place] [address]- 3598 Aug, [facility] [place] [facility] [address] [id number] [place] [address]- 4018 Aug, [facility] [place] [facility] [address] [id number] [place] [address]- 6575 16 Aug, 2011 [facility] [place] [facility] [address] [id number] [place] [address]- 3672 Aug, [facility] [place] [facility] [address] [id number] [place] [address]- 5593 Jul, [facility] [place] [facility] [address] [id number] [place] [address]- 6838 Jul, [facility] [place] [facility] [address] [id number] [place] [address]- 1319 Jul, [facility] [place] [facility] [address] [id number] [place] [address]- 8142 May, [facility] [place] [facility] [address] [id number] [place] [address]- 0751 May, [facility] [place] [facility] [address] [id number] [place] [address]- 9116 Mar, [facility] [place] [facility] [address] [id number] [place] [address]- 6426 Mar, [facility] [place] [facility] [address] [id number] [place] [address]- 4442 10 Mar, 2011 [facility] [place] [facility] [address] [id number] [place] [address] 10 Mar, 2011 [facility] [place] [facility] [address] [id number] [place] [address] 19 Dec, 2010 [facility] [place] [facility] [address] [id number] [place] [address] 14 May, 2010 [facility] [place] [facility] [address] [id number] [place] [address] 06 May, 2010 [facility] [place] [facility] [address] [id number] [place] [address] 22 May, 2010 [facility] [place] [facility] [address] [id number] [place] [address] 14 Mar, 2010 [facility] [place] [facility] [address] [id number] [place] [address] 14 Mar, 2010 [facility] [place] [facility] [address] [id number] [place] [address] Jan, [facility] [place] [facility] [address] [id number] [place] [address] Aug, [facility] [place] [facility] [address] [id number] [place] [address] May, [facility] [place] [facility] [address] [id number], [place] [address] May, [facility] [place] [facility] [address] [id number], [place] [address] May, [facility] [place] [facility] [address] [id number] [place] [address] May, [facility] [place] [facility] [address] [id number], [place] [address] May, [facility] [place] [facility] [address] [id number] [place] [address] Mar, [facility] [place] [facility] [address] [facility] [id number] [place] [address] 10 Jul, 2006 [facility] [address] [facility] [id number], [place] [address] 14 May, 2006 [facility] [address] [facility] [id number], [place] [address] 11 Mar, 2006 [facility] [address] [facility] [id number], [place] [address] Sep, [facility] [address] [facility] [id number], [place] [address] 12 Jul, 2004 IMMUNIZATIONS No Known Immunizations SOCIAL HISTORY Never Assessed REASON FOR VISIT Doctor's note PLAN OF CARE VITAL SIGNS MEDICATIONS Unknown [...]
--- OUTSIDE RECORDS SUMMARY | 2018-06-29 14:17 | XMS REPORT ---
Author Author MIKE LUEVANO [facility] Address [address] [place] [address] Care Team Providers Care Legal Writing Professor Name Role Phone MIKE LUEVANO Unavailable PROBLEMS Type Condition ICD9-CM Code UJI85-NA Code Onset Dates Condition Status SNOMED Code Problem Irregular menses N92.6 Active 86196344 Problem Generalized anxiety disorder F41.1 Active 49960144 Problem Unspecified mood [affective] disorder F39 Active 993681485 Problem PCOS (polycystic ovarian syndrome) E28.2 Active 53671154 Problem IBS (irritable bowel syndrome) K58.9 Active 29748646 Problem Tobacco abuse Z72.0 Active 56663533 Problem Tobacco abuse counseling Z71.6 Active 285331856 Problem Abnormal uterine bleeding N93.9 Active 28296291796460 Problem Other chronic pain G89.29 Active 62189724 Problem History of drug dependence/abuse F19.21 Active Problem Chronic posttraumatic stress disorder F43.12 Active 180715924 Problem Bipolar II disorder F31.81 Active 82715920 Problem PTSD (post-traumatic stress disorder) F43.10 Active 18518098 ALLERGIES No Information ENCOUNTERS Encounter Location Date Diagnosis [facility] [address], [place] [address] May, [facility] [address] [place] [address] 74743- 5960 May, [facility] [address] [place] [address] 69907- 3862 May, [facility] [id number] [place] [address] 54950- 0303 May, Concussion with loss of consciousness, initial encounter S06.0X9A [facility] [address] [place] [address] 49165- 4391 Mar, Upper respiratory infection, viral J06.9 and Dysuria R30.0 [facility] [address] [place] [address] [id number] 25 Mar, 2018 Dental examination Z01.20 [facility] [id number] [place] [address] [id number] 21 Mar, 2018 Dental examination Z01.20 [facility] [id number] [place] [address] [id number] 19 Mar, 2018 Caries K02.9 [facility] [id number] [place] [address] [id number] 13 Mar, 2018 Dental examination Z01.20 [facility] [address] [id number]- 4496 17 Dec, 2017 [facility] [address] 14675- 6222 Dec, [facility] [id number] [place] [address] 25417- 9223 Nov, Irregular menses N92.6 ; Abnormal uterine bleeding N93.9 ; History of PCOS Z87.42 and History of unprotected sex Z72.51 [facility] [id number] [place] [address] 55143- 3026 October, [facility] [id number] [place] [address] 44079- 3886 October, Low back pain M54.5 ; Dysuria R30.0 ; Other chronic pain G89.29 and Routine gynecological examination Z01.419 [facility] [id number] [place] [address] 94660- 2271 October, Dysuria R30.0 and Vaginal discharge N89.8 [facility] [id number] [place] [address] 74517- 4652 Sep, Bipolar II disorder F31.81 ; PTSD (post-traumatic stress disorder) F43.10 ; Generalized anxiety disorder F41.1 and History of drug dependence/abuse F19.21 [place] [address] [place] [address] 73338- 0223 Sep, Unspecified mood [affective] disorder F39 and Post- traumatic stress disorder, unspecified F43.10 [facility] [id number] [place] [address] 60979- 4115 Aug, PCOS (polycystic ovarian syndrome) E28.2 ; Recurrent major depressive disorder, in full remission F33.42 ; IBS (irritable bowel syndrome) K58.9 and Tobacco abuse Z72.0 [place] [address] 77596- 2093 Aug, Generalized anxiety disorder F41.1 and Depressive disorder, not elsewhere classified F32.9 [facility] [id number] [place] [address] 82339- 0682 Aug, PCOS (polycystic ovarian syndrome) E28.2 ; Recurrent major depressive disorder, in full remission F33.42 ; IBS (irritable bowel syndrome) K58.9 ; Tobacco abuse Z72.0 ; Tobacco abuse counseling Z71.6 ; Dysuria R30.0 ; Irregular menses N92.6 ; Vaginal candidiasis B37.3 and Acute cystitis without hematuria N30.00 [facility] [id number] [place] [address] 25034- 6184 May, [id number] [place] [address] 67022- 8529 18 Mar, 2017 Vaginal discharge N89.8 and Recurrent candidiasis of vagina B37.3 [facility] [id number] [place] [address] 05978- 4864 13 Mar, 2017 Nausea and vomiting in adult R11.2 ; Sore throat J02.9 and Diarrhea, unspecified type R19.7 [facility] [id number] [place] [address] 94142- 8747 11 Mar, 2017 [facility] [id number] [place] [address] 11450- 3320 Jan, Vaginal discharge N89.8 ; Dysuria R30.0 ; High risk sexual behavior Z72.51 ; Major depressive disorder, single episode F32.9 and Vaginal candidiasis B37.3 [facility] [id number] [place] [address] 35513- 3941 Jan, Anxiety F41.9 [facility] [id number] [place] [address] 31791- 4957 Dec, [place] [address] 61247- 6439 Nov, Generalized anxiety disorder F41.1 ; Depressive disorder, not elsewhere classified F32.9 ; History of drug dependence/abuse F19.21 and 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 [facility] [id number] [place] [address] 63590- 5531 Nov, Vaginal discharge N89.8 ; High risk sexual behavior Z72.51 ; Potential exposure to STD Z20.2 and Vaginal candidiasis B37.3 [facility] [id number] [place] [address] 17834- 1679 Nov, History of drug dependence/abuse F19.21 and Major depressive disorder, single episode F32.9 [facility] [id number] [place] [address] 90566- 3822 Nov, Right medial knee pain M25.561 [facility] [id number] [place] [address] 37717- 0992 October, Nausea and vomiting, intractability of vomiting not specified, unspecified vomiting type R11.2 and Acute pyelonephritis N10 [place] [id number] [place] [address] 20231- 1254 Sep, Major depressive disorder, single episode F32.9 ; Alcohol abuse F10.10 and Tobacco abuse Z72.0 [facility] [id number] [place] [address] 38022- 7772 Sep, Major depressive disorder, single episode F32.9 ; Alcohol abuse F10.10 and History of drug dependence/abuse F19.21 [facility] [address] [place] [address] 70739- 1907 Sep, Major depressive disorder, single episode F32.[address] [facility] [id number] [place] [address] 27384 -9986 29 Aug, 2016 Acute cystitis with hematuria N30.01 and Dysuria R30.0 [facility] [id number] [place] [address] 75446- 7679 Aug, Dysuria R30.0 ; Vaginal candidiasis B37.3 ; Vaginal discharge N89.8 and High risk sexual behavior Z72.51 [facility] [address] 10965- 2782 Jul, [facility] [id number] [place] [address] 72125- 6060 Jul, Major depressive disorder, single episode F32.9 ; History of drug dependence/abuse F19.21 ; Alcohol abuse F10.10 and Tobacco abuse Z72.0 [facility] [id number] [place] [address] [id number] May, Dental examination Z01.20 and Dental caries K02.9 [facility] [id number] [place] [address] 98306- 0489 May, Fatigue, unspecified type R53.83 and Cough R05 [facility] [id number] [place] [address] 76733- 6538 May, [facility] [id number] [place] [address] 17353- 6571 Mar, [facility] [address] 59971- 3725 Mar, [facility] [id number] [place] [address] 36337- 4674 Mar, [facility] [address] 30941- 3273 Mar, [place] [id number] [place] [address] 68217- 5755 10 Mar, 2016 Absence of menstruation N91.2 ; Vagina itching L29.8 ; History of drug dependence/abuse F19.21 ; History of PID Z87.42 and Acute cystitis without hematuria N30.[address] 78299- 3461 08 Sep, 2015 Routine health maintenance Z00.00 ; Late menses N91.0 ; History of drug dependence/abuse F19.21 ; Alcohol abuse F10.10 ; Tobacco abuse Z72.0 ; Tobacco abuse counseling Z71.6 and Back pain M54.9 [facility] [address] [id number] Aug, 2015 Dental examination Z01.20 and Dental caries K02.[address] 47525- 3224 Jul, [address] 07048- 7495 14 Jul, 2015 Surveillance of contraceptive injection Z30.[address] 80593- 5446 13 Jul, 2015 Routine screening for STI (sexually transmitted infection) Z11.3 ; Drug use F19.90 ; Counseling on substance use and abuse Z71.89 ; Unprotected sexual intercourse Z72.51 ; Encounter for counseling regarding contraception Z30.9 ; Vaginal discharge N89.8 and Skin lesions L98.9 [place] [id number] [place] [address] 01034- 5410 May, [address] 73136- 5072 May, Yeast infection B37.[address] 11550- 0897 May, Excessive and frequent menstruation with irregular cycle N92.1 ; Other fatigue R53.83 ; General counseling and advice for contraceptive management Z30.09 ; Evaluation for contraceptive injection Z30.013 ; Cough R05 ; Vaginal irritation N89.8 and Dizziness R42 [facility] [id number] [place] [address] 11766- 8045 14 Sep, 2014 [facility] [id number] [place] [address] 00656- 2289 Sep, [facility] [id number] [place] [address] 51011- 7880 Aug, [facility] [id number] [place] [address] 04080- 3542 Aug, [facility] [id number] [place] [address] 40507- 6243 Aug, [facility] [id number] [place] [address] 14629- 5363 Aug, [facility] [id number] [place] [address] 72179- 3182 Aug, [facility] [id number] [place] [address] 25904- 7421 Aug, [facility] [id number] [place] [address] 38448- 0860 Aug, [facility] [address], [place] [address]- 6704 Aug, [facility] [id number] [place] [address] 37339- 7224 Aug, [facility] [address] [place] [address] 86419- 7477 Aug, [facility] [id number] [place] [address] 552232- 9109 Aug, [facility] [address] 8658 Aug, [facility] [id number] [place] [address]- 1222 Jul, [facility] [place] [facility] [address] [id number] [place] [address]- 2506 Jul, [facility] [place] [facility] [address] [id number] [place] [address]- 1143 May, [facility] [place] [facility] [address] [id number] [place] [address]- 3966 May, [facility] [place] [facility] [address] [id number] [place] [address]- 7427 May, [facility] [place] [facility] [address] [id number] [place] [address]- 8878 May, [facility] [place] [facility] [address] [id number] [place] [address]- 1483 Mar, [facility] [place] [facility] [address] [id number] [place] [address]- 3916 Mar, [facility] [place] [facility] [address] [id number] [place] [address]- 5491 Mar, [facility] [place] [facility] [address] [id number] [place] [address]- 9174 Mar, [facility] [place] [facility] [address] [id number] [place] [address]- 9602 Mar, [facility] [place] [facility] [address] [id number] [place] [address]- 1308 Mar, [facility] [place] [facility] [address] [id number] [place] [address]- 6554 Mar, [facility] [place] [facility] [address] [id number] [place] [address]- 7303 Mar, [facility] [place] [facility] [address] [id number] [place] [address]- 5429 Mar, [facility] [place] [facility] [address] [id number] [place] [address]- 6786 Mar, [facility] [place] [facility] [address] [id number] [place] [address]- 0716 Jan, [facility] [place] [facility] [address] [id number] [place] [address]- 6849 Jan, [facility] [place] [facility] [address] [id number] [place] 6129 Nov, [facility] [place] [facility] [address] [id number] [place] [address]- 8068 Nov, [facility] [place] [facility] [address] [id number] [place] [address]- 5242 October, [facility] [place] [facility] [address] [id number] [place] [address]- 3785 October, [facility] [place] [facility] [address] [id number] [place] [address]- 4693 October, [facility] [place] [facility] [address] [id number] [place] [address]- 6760 October, [facility] [place] [facility] [address] [id number] [place] [address]- 5167 October, [facility] [place] [facility] [address] [id number] [place] [address]- 7976 October, [facility] [place] [facility] [address] [id number] [place] [address]- 3597 October, [facility] [place] [facility] [address] [id number] [place] [address]- 0716 October, [facility] [place] [facility] [address] [id number] [place] [address]- 8319 Sep, [facility] [place] [facility] [address] [id number] [place] [address]- 2362 Sep, [facility] [place] [facility] [address] [id number] [place] [address]- 4508 Aug, [facility] [place] [facility] [address] [id number] [place] [address]- 4601 Aug, [facility] [place] [facility] [address] [id number] [place] [address]- 1111 Aug, [facility] [place] [facility] [address] [id number] [place] [address]- 7423 Aug, [facility] [place] [facility] [address] [id number] [place] [address]- 5384 May, [facility] [place] [facility] [address] [id number] [place] [address]- 9845 May, [facility] [place] [facility] [address] [id number] [place] [address]- 0675 May, [facility] [place] [facility] [address] [id number] [place] [address]- 2984 May, [facility] [place] [facility] [address] [id number] [place] [address]- 6699 May, [facility] [place] [facility] [address] [id number] [place] [address]- 5088 May, [facility] [place] [facility] [address] [id number] [place] [address]- 4530 May, [facility] [place] [facility] [address] [facility] [id number] [place] [address]- 2728 May, [facility] [place] [facility] [address] [id number] [place] [address]- 9309 Mar, [facility] [place] [facility] [address] [id number] [place] [address]- 3607 Mar, [facility] [place] [facility] [address] [id number] [place] 9943 Mar, [facility] [place] [facility] [address] [id number] [place] [address]- 2268 Jan, [facility] [place] [facility] [address] [id number] [place] [address]- 7165 Jan, [facility] [place] [facility] [address] [id number] [place] [address]- 1137 Dec, [facility] [address] [id number] [place] [address]- 2337 Dec, [facility] [address] [id number] [place] [address]- 2233 Dec, [facility] [address] [id number] [place] [address]- 0692 Sep, [facility] [address] [id number] [place] [address]- 4122 Aug, [facility] [address] [id number] [place] [address]- 7541 21 Aug, 2012 [facility] [address] [id number] [place] [address]- 8057 18 Aug, 2012 [facility] [address] [id number] [place] [address]- 5950 15 Aug, 2012 [facility] [address] [id number] [place] [address]- 4362 14 Aug, 2012 [facility] [address] [id number] [place] [address]- 0765 Aug, [facility] [address] [id number] [place] [address]- 9034 16 Jul, 2012 [facility] [address] [id number] [place] [address]- 6875 15 Jul, 2012 [facility] [address] [id number] [place] [address]- 5034 Jul, [facility] [place] [facility] [address] [id number] [place] [address]- 3571 Jul, [facility] [address] [id number] [place] [address]- 4847 03 Jul, 2012 [facility] [address] [id number], [place] [address]- 1729 Jul, [facility] [place] [facility] [address] [id number] [place] 4361 May, [facility] [place] [facility] [address] [id number] [place] [address]- 8426 May, [facility] [place] [facility] [address] [id number] [place] [address]- 4226 May, [facility] [place] [facility] [address] [id number] [place] [address]- 6079 May, [facility] [place] [facility] [address] [id number] [place] [address]- 4096 May, [facility] [place] [facility] [address] [id number] [place] 0256 May, [facility] [place] [facility] [address] [id number] [place] 7714 Mar, [facility] [place] [facility] [address] [id number] [place] [address]- 5856 Mar, [facility] [place] [facility] [address] [id number] [place] [address]- 2679 Mar, [facility] [place] [facility] [address] [id number] [place] [address]- 0657 Mar, [facility] [place] [facility] [address] [id number], [place] [address]- 9979 Mar, [facility] [place] [facility] [address] [id number], [place] [address]- 2446 Mar, [facility] [place] [facility] [address] [id number] [place] [address]- 2226 Mar, [facility] [place] [facility] [address] [id number], [place] [address]- 5331 Dec, [facility] [place] [facility] [address] [id number] [place] [address]- 5934 Nov, [facility] [place] [facility] [address] [id number] [place] [address]- 3108 18 Sep, 2011 [facility] [address] [id number] [place] [address]- 4980 29 Aug, 2011 [facility] [place] [facility] [address] [id number] [place] [address]- 1586 Aug, [facility] [place] [facility] [address] [id number] [place] [address]- 1027 Aug, [facility] [place] [facility] [address] [id number] [place] [address]- 2164 Aug, [facility] [address] [id number] [place] [address]- 1525 16 Aug, 2011 [facility] [place] [facility] [address] [id number] [place] [address]- 7677 Aug, [facility] [place] [facility] [address] [id number] [place] [address]- 8416 Jul, [facility] [address] [id number] [place] [address]- 6266 Jul, [facility] [place] [facility] [address] [id number] [place] [address]- 6969 Jul, [facility] [address] [id number] [place] [address]- 6[address] May, [facility] [place] [facility] [address] [id number] [place] [address] May, [facility] [place] [facility] [address] [id number] [place] [address] Mar, [facility] [place] [facility] [address] [id number] [place] [address] Mar, [facility] [place] [facility] [address] [id number] [place] [address] Mar, [facility] [place] [facility] [address] [id number] [place] [address] Mar, [facility] [place] [facility] [address] [id number] [place] [address] Dec, [facility] [place] [facility] [address] [id number] [place] [address] 14 May, 2010 [facility] [place] [facility] [address] [id number] [place] [address] 06 May, 2010 [facility] [place] [facility] [address] [id number] [place] [address] May, [facility] [place] [facility] [address] [id number] [place] [address] 14 Mar, 2010 [facility] [place] [facility] [address] [id number] [place] [address] 14 Mar, 2010 [facility] [place] [facility] [address] [id number] [place] [address] Jan, [facility] [place] [facility] [address] [id number], [place] [address] Aug, [facility] [place] [facility] [address] [id number] [place] [address] May, [facility] [place] [facility] [address] [id number], [place] [address] May, [facility] [place] [facility] [address] [id number], [place] [address] May, [facility] [place] [facility] [address] [id number], [place] [address] May, [facility] [place] [facility] [address] [id number] [place] [address] May, [facility] [place] [facility] [address] [id number], [place] [address] Mar, [facility] [place] [facility] [address] [id number], [place] [address] 10 Jul, 2006 [facility] [place] [facility] [address] [facility] [id number] [place] [address] 14 May, 2006 [facility] [address] [facility] [id number] [place] [address] 11 Mar, 2006 [facility] [address] [facility] [id number], [place] [address] 20 Sep, 2004 [facility] [address] [facility] [id number] [place] [address] Jul, IMMUNIZATIONS No Known Immunizations SOCIAL HISTORY Never Assessed REASON FOR VISIT Requests return call PLAN OF CARE VITAL SIGNS MEDICATIONS [...]
--- OUTSIDE RECORDS SUMMARY | 2018-06-29 14:17 | XMS REPORT ---
Author Author JHOANA KRAUS [facility] Address [address] [place] [address] Care Team Providers Care Manager Zone Name Role Phone JHOANA KRAUS Unavailable PROBLEMS Type Condition ICD9-CM Code HDH69-TT Code Onset Dates Condition Status SNOMED Code Problem Irregular menses N92.6 Active 02431765 Problem Generalized anxiety disorder F41.1 Active 35226208 Problem Unspecified mood [affective] disorder F39 Active 483253175 Problem PCOS (polycystic ovarian syndrome) E28.2 Active 15585151 Problem IBS (irritable bowel syndrome) K58.9 Active 05077742 Problem Tobacco abuse Z72.0 Active 74220623 Problem Tobacco abuse counseling Z71.6 Active 888201407 Problem Abnormal uterine bleeding N93.9 Active 37476356676550 Problem Other chronic pain G89.29 Active 76502532 Problem History of drug dependence/abuse F19.21 Active Problem Chronic posttraumatic stress disorder F43.12 Active 403030391 Problem Bipolar II disorder F31.81 Active 12821763 Problem PTSD (post-traumatic stress disorder) F43.10 Active 97585579 ALLERGIES No Information ENCOUNTERS Encounter Location Date Diagnosis [facility] [id number] [place] [address] 53507- 7034 28 May, 2018 [facility] [id number] [place] [address] 80571- 8552 May, [facility] [id number] [place] [address] 02019- 5597 May, Concussion with loss of consciousness, initial encounter S06.0X9A [facility] [id number] [place] [address] 16648- 2942 09 Mar, 2018 Upper respiratory infection, viral J06.9 and Dysuria R30.0 [facility] [address] [id number] 25 Mar, 2018 Dental examination Z01.20 [facility] [address] [id number] 21 Mar, 2018 Dental examination Z01.20 [facility] [address] [id number] 19 Mar, 2018 Caries K02.9 [facility] [id number] [place] [address] [id number] 13 Mar, 2018 Dental examination Z01.20 [facility] [id number] [place] [address] 86899- 8721 17 Dec, 2017 [facility] [id number] [place] [address] 53297- 4913 Dec, [facility] [id number] [place] [address] 02708- 6995 Nov, Irregular menses N92.6 ; Abnormal uterine bleeding N93.9 ; History of PCOS Z87.42 and History of unprotected sex Z72.51 [facility] [id number] [place] [address] 30806- 2114 October, [facility] [id number] [place] [address] 22092- 7473 October, Low back pain M54.5 ; Dysuria R30.0 ; Other chronic pain G89.29 and Routine gynecological examination Z01.419 [facility] [id number] [place] [address] 88134- 1395 October, Dysuria R30.0 and Vaginal discharge N89.8 [facility] [id number] [place] [address] 79264- 4976 Sep, Bipolar II disorder F31.81 ; PTSD (post-traumatic stress disorder) F43.10 ; Generalized anxiety disorder F41.1 and History of drug dependence/abuse F19.21 [facility] [id number] [place] [address] 99275- 1484 Sep, Unspecified mood [affective] disorder F39 and Post- traumatic stress disorder, unspecified F43.10 [facility] [id number] [place] [address] 56101- 8425 Aug, PCOS (polycystic ovarian syndrome) E28.2 ; Recurrent major depressive disorder, in full remission F33.42 ; IBS (irritable bowel syndrome) K58.9 and Tobacco abuse Z72.0 [place] [facility] [address] 54481- 6706 Aug, Generalized anxiety disorder F41.1 and Depressive disorder, not elsewhere classified F32.9 [facility] [id number] [place] [address] 64499- 1850 Aug, PCOS (polycystic ovarian syndrome) E28.2 ; Recurrent major depressive disorder, in full remission F33.42 ; IBS (irritable bowel syndrome) K58.9 ; Tobacco abuse Z72.0 ; Tobacco abuse counseling Z71.6 ; Dysuria R30.0 ; Irregular menses N92.6 ; Vaginal candidiasis B37.3 and Acute cystitis without hematuria N30.00 [facility] [facility] [id number] [place] [address] 41066- 2437 May, [facility] [facility] [address] 03176- 8842 18 Mar, 2017 Vaginal discharge N89.8 and Recurrent candidiasis of vagina B37.3 [facility] [id number] [place] [address] 98880- 2688 13 Mar, 2017 Nausea and vomiting in adult R11.2 ; Sore throat J02.9 and Diarrhea, unspecified type R19.7 [facility] [id number] [place] [address] 66890- 5189 11 Mar, 2017 [place] [address] 21714- 0177 14 Jan, 2017 Vaginal discharge N89.8 ; Dysuria R30.0 ; High risk sexual behavior Z72.51 ; Major depressive disorder, single episode F32.9 and Vaginal candidiasis B37.3 [place] [address] [place] [address] 22497- 6762 Jan, Anxiety F41.9 [facility] [id number] [place] [address] 86769- 2939 Dec, [facility] [id number] [place] [address] 21315- 4580 Nov, Generalized anxiety disorder F41.1 ; Depressive disorder, not elsewhere classified F32.9 ; History of drug dependence/abuse F19.21 and 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 [facility] [facility] [address] 11523- 2605 Nov, Vaginal discharge N89.8 ; High risk sexual behavior Z72.51 ; Potential exposure to STD Z20.2 and Vaginal candidiasis B37.3 [place] [address] 00965- 8717 Nov, History of drug dependence/abuse F19.21 and Major depressive disorder, single episode F32.9 [facility] [id number] [place] [address] 79145- 3072 Nov, Right medial knee pain M25.561 [facility] [id number] [place] [address] 50895- 4075 October, Nausea and vomiting, intractability of vomiting not specified, unspecified vomiting type R11.2 and Acute pyelonephritis N10 [facility] [id number] [place] [address] 45859- 3663 Sep, Major depressive disorder, single episode F32.9 ; Alcohol abuse F10.10 and Tobacco abuse Z72.0 [facility] [id number] [place] [address] 96684- 3029 Sep, Major depressive disorder, single episode F32.9 ; Alcohol abuse F10.10 and History of drug dependence/abuse F19.21 [place] [address] 48916- 6196 Sep, Major depressive disorder, single episode F32.9 [facility] [address] [place] [address] 90982 -7572 Aug, Acute cystitis with hematuria N30.01 and Dysuria R30.0 [facility] [id number] [place] [address] 54897- 0911 Aug, Dysuria R30.0 ; Vaginal candidiasis B37.3 ; Vaginal discharge N89.8 and High risk sexual behavior Z72.51 [facility] [id number] [place] [address] 58025- 4429 Jul, [facility] [address] 37884- 4677 Jul, Major depressive disorder, single episode F32.9 ; History of drug dependence/abuse F19.21 ; Alcohol abuse F10.10 and Tobacco abuse Z72.0 [facility] [address] [id number] May, Dental examination Z01.20 and Dental caries K02.9 [facility] [address] 32234- 5253 May, Fatigue, unspecified type R53.83 and Cough R05 [facility] [id number] [place] [address] 66432- 2194 May, [facility] [id number] [place] [address] 22591- 9372 Mar, [facility] [id number] [place] [address] 23507- 5117 Mar, [facility] [address] 38413- 6735 Mar, [facility] [id number] [place] [address] 38205- 9817 Mar, [facility] [address] 86023- 8215 Mar, 2016 Absence of menstruation N91.2 ; Vagina itching L29.8 ; History of drug dependence/abuse F19.21 ; History of PID Z87.42 and Acute cystitis without hematuria N30.00 [place] [address] [place] [address] 42139- 7371 08 Sep, 2015 Routine health maintenance Z00.00 ; Late menses N91.0 ; History of drug dependence/abuse F19.21 ; Alcohol abuse F10.10 ; Tobacco abuse Z72.0 ; Tobacco abuse counseling Z71.6 and Back pain M54.9 [facility] [address] [id number] Aug, 2015 Dental examination Z01.20 and Dental caries K02.9 [id number] [place] [address] 16415- 2343 26 Jul, [address] 35120- 0066 14 Jul, 2015 Surveillance of contraceptive injection Z30.42 [id number] [place] [address] 78480- 7054 13 Jul, 2015 Routine screening for STI (sexually transmitted infection) Z11.3 ; Drug use F19.90 ; Counseling on substance use and abuse Z71.89 ; Unprotected sexual intercourse Z72.51 ; Encounter for counseling regarding contraception Z30.9 ; Vaginal discharge N89.8 and Skin lesions L98.9 [id number] [place] [address] 75730- 2948 May, [address] [id number] [place] [address] 20975- 3137 May, Yeast infection B37.[address] 24254- 6490 May, Excessive and frequent menstruation with irregular cycle N92.1 ; Other fatigue R53.83 ; General counseling and advice for contraceptive management Z30.09 ; Evaluation for contraceptive injection Z30.013 ; Cough R05 ; Vaginal irritation N89.8 and Dizziness R42 [facility] [place] [facility] [address] [facility] [id number] [place] [address]- 1066 14 Sep, 2014 [facility] [address] [facility] [id number] [place] [address]- 8266 Sep, [facility] [address] [place] [address]- 4526 Aug, [facility] [place] [facility] [address] [facility] [id number] [place] [address], [place] [address]- 0302 Aug, [facility] [place] [facility] [address] [facility] [id number] [place] [address]- 6724 Aug, [facility] [place] [facility] [id number] [place] [address]- 2373 Aug, [facility] [id number] [place] [address]- 6020 Aug, [facility] [place] [facility] [address], [place] [address]- 1656 Aug, [facility] [address], [place] [address]- 6047 Aug, [facility] [place] [facility] [id number] [place] [address]- 9483 Aug, [facility] [place] [facility] [address], [place] [address]- 2046 Aug, [facility] [place] [facility] [address], [place] [address]- 1609 Aug, [facility] [place] [facility] [address], [place] [address]- 9550 Aug, [facility] [place] [facility] [address] [address]- 1998 Aug, [facility] [place] [facility] [address] 8046 Jul, [facility] [place] [facility] [address] [id number] [place] [address]- 5003 Jul, [facility] [place] [facility] [address] [id number] [place] [address]- 0857 May, [facility] [place] [facility] [address] [id number] [place] [address]- 3934 May, [facility] [place] [facility] [address] [id number] [place] [address]- 6673 May, [facility] [place] [facility] [address] [id number] [place] [address]- 8325 May, [facility] [place] [facility] [address] [id number] [place] [address]- 1055 Mar, [facility] [place] [facility] [address] [id number] [place] [address]- 1442 Mar, [facility] [place] [facility] [address] [id number] [place] [address]- 5379 Mar, [facility] [place] [facility] [address] [id number] [place] [address]- 8366 Mar, [facility] [place] [facility] [address] [id number] [place] [address]- 1709 Mar, [facility] [place] [facility] [address] [id number] [place] [address]- 4095 Mar, [facility] [place] [facility] [address] [id number] [place] [address]- 7898 Mar, [facility] [place] [facility] [address] [id number] [place] [address]- 3450 Mar, [facility] [place] [facility] [address] [id number] [place] [address]- 0216 Mar, [facility] [place] [facility] [address] [id number] [place] [address]- 4644 Mar, [facility] [place] [facility] [address] [id number] [place] [address]- 2229 Jan, [facility] [place] [facility] [address] [id number] [place] [address]- 3642 Jan, [facility] [place] [facility] [address] [id number] [place] [address]- 8969 Nov, [facility] [place] [facility] [address] [id number] [place] [address]- 8438 Nov, [facility] [place] [facility] [address] [id number] [place] [address]- 8865 October, [facility] [place] [facility] [address] [id number] [place] [address]- 0858 October, [facility] [place] [facility] [address] [id number] [place] [address]- 4297 October, [facility] [place] [facility] [address] [id number] [place] [address]- 3037 October, [facility] [place] [facility] [address] [id number] [place] [address]- 0945 October, [facility] [place] [facility] [address] [id number] [place] [address]- 2637 October, [facility] [place] [facility] [address] [id number] [place] [address]- 9269 October, [facility] [place] [facility] [address] [id number] [place] [address]- 2237 October, [facility] [place] [facility] [address] [id number] [place] [address]- 4161 Sep, [facility] [place] [facility] [address] [id number] [place] [address]- 3215 Sep, [facility] [place] [facility] [address] [id number] [place] [address]- 4321 Aug, [facility] [place] [facility] [address] [id number] [place] [address]- 5031 Aug, [facility] [place] [facility] [address] [id number] [place] [address]- 9796 Aug, [facility] [address] [id number] [place] [address]- 4412 Aug, [facility] [address] [id number] [place] 6851 May, [facility] [address] [id number] [place] [address]- 1071 May, [facility] [place] [facility] [address] [id number] [place] [address]- 4490 May, [facility] [address] [id number] [place] [address]- 3847 May, [facility] [address] [facility] [id number] [place] [address]- 3795 May, [facility] [address] [facility] [id number] [place] [address]- 9139 May, [facility] [address] [id number] [place] [address]- 3074 May, [facility] [address] [id number] [place] [address]- 8854 May, [facility] [address] [facility] [id number] [place] [address]- 0644 Mar, [facility] [place] [facility] [address] [id number] [place] [address]- 3887 Mar, [facility] [place] [facility] [address] [id number] [place] [address]- 2916 Mar, [facility] [place] [facility] [address] [id number] [place] [address]- 2394 Jan, [facility] [place] [facility] [address] [id number] [place] [address]- 254 Jan, [facility] [place] [facility] [address] [id number] [place] [address]- 8142 Dec, [facility] [address] [id number] [place] [address]- 1802 Dec, [facility] [place] [facility] [address] [id number] [place] [address]- 6076 Dec, [facility] [address] [id number] [place] [address]- 0561 04 Sep, 2012 [facility] [place] [facility] [address] [id number] [place] [address]- 4085 28 Aug, 2012 [facility] [address] [id number] [place] [address]- 5404 21 Aug, 2012 [facility] [place] [facility] [address] [id number] [place] [address]- 6536 18 Aug, 2012 [facility] [address] [id number] [place] [address]- 6870 15 Aug, 2012 [facility] [address] [id number] [place] [address]- 8353 14 Aug, 2012 [facility] [place] [facility] [address] [id number] [place] [address]- 1402 Aug, [facility] [address] [id number] [place] [address]- 0921 16 Jul, 2012 [facility] [place] [facility] [address] [id number] [place] [address]- 3021 15 Jul, 2012 [facility] [place] [facility] [address] [id number], [place] [address]- 9413 07 Jul, 2012 [facility] [place] [facility] [address] [id number] [place] [address]- 4380 Jul, [facility] [place] [facility] [address] [id number] [place] [address]- 1986 03 Jul, 2012 [facility] [place] [facility] [address] [id number], [place] [address]- 9316 Jul, [facility] [place] [facility] [address] [id number], [place] [address]- 9568 May, [facility] [place] [facility] [address] [id number] [place] [address]- 7101 May, [facility] [place] [facility] [address] [facility] [id number] [place] [address]- 6958 May, [facility] [place] [facility] [address] [facility] [id number] [place] [address]- 1029 May, [facility] [place] [facility] [address] [id number] [place] [address]- 7631 May, [facility] [place] [facility] [address] [id number] [place] [address]- 7536 May, [facility] [place] [facility] [address] [facility] [id number] [place] 2886 Mar, [facility] [place] [facility] [id number] [place] [address]- 0805 Mar, [facility] [place] [facility] [address] [facility] [id number] [place] [address]- 7502 Mar, [facility] [place] [facility] [address] [place] [id number] [place] [address]- 1341 Mar, [facility] [place] [facility] [address] [facility] [id number] [place] [address]- 1684 Mar, [facility] [place] [facility] [address] [facility] [id number], [place] [address]- 4175 Mar, [facility] [place] [facility] [address] [facility] [id number], [place] [address]- 0626 Mar, [facility] [place] [facility] [address] [facility] [id number] [place] [address]- 8029 Dec, [facility] [place] [facility] [address] [facility] [id number], [place] [address]- 4315 Nov, [facility] [place] [facility] [address] [facility] [id number] [place] [address]- 5276 Sep, [facility] [place] [facility] [address] [id number] [place] [address]- 2551 29 Aug, 2011 [facility] [place] [facility] [address] [id number] [place] [address]- 0311 27 Aug, 2011 [facility] [place] [facility] [address] [id number] [place] [address]- 2466 22 Aug, 2011 [facility] [place] [facility] [address] [id number] [place] [address]- 3436 Aug, [facility] [place] [facility] [address] [id number] [place] [address]- 9861 16 Aug, 2011 [facility] [place] [facility] [address] [id number] [place] [address]- 3237 Aug, [facility] [place] [facility] [address] [id number] [place] [address]- 0233 Jul, [facility] [place] [facility] [address] [id number] [place] [address]- 3803 Jul, [facility] [place] [facility] [address] [id number] [place] [address]- 9022 Jul, [facility] [place] [facility] [address] [id number] [place] [address]- 2199 May, [facility] [place] [facility] [address] [id number] [place] [address]- 1799 May, [facility] [place] [facility] [address] [id number] [place] [address]- 8855 Mar, [facility] [place] [facility] [address] [id number] [place] [address]- 9418 Mar, [facility] [place] [facility] [address] [id number] [place] [address]- 6417 Mar, [facility] [place] [facility] [address] [id number] [place] [address]- 7786 Mar, [facility] [place] [facility] [address] [id number] [place] [address]- 5425 19 Dec, 2010 [facility] [place] [facility] [address] [id number] [place] [address]- 5547 14 May, 2010 [facility] [place] [facility] [address] [id number] [place] [address] 06 May, 2010 [facility] [place] [facility] [address] [id number] [place] [address] 22 May, 2010 [facility] [place] [facility] [address] [id number] [place] [address] 14 Mar, 2010 [facility] [place] [facility] [address] [id number] [place] [address] 14 Mar, 2010 [facility] [place] [facility] [address] [id number] [place] [address] Jan, [facility] [place] [facility] [address] [id number] [place] [address] 18 Aug, 2009 [facility] [place] [facility] [address] [id number], [place] [address] 31 May, 2009 [facility] [place] [facility] [address] [id number] [place] [address] 03 May, 2009 [facility] [place] [facility] [address] [id number], [place] [address] 16 May, 2009 [facility] [place] [facility] [address] [id number], [place] [address] 16 May, 2009 [facility] [place] [facility] [address] [id number], [place] [address] 02 May, 2009 [facility] [place] [facility] [address] [id number] [place] [address] 21 Mar, 2009 [facility] [place] [facility] [address] [id number], [place] [address] 10 Jul, 2006 [facility] [place] [facility] [address] [id number] [place] [address] 14 May, 2006 [facility] [place] [facility] [address] [facility] [id number] [place] [address] 11 Mar, 2006 [facility] [address] [facility] [id number] [place] [address] Sep, [facility] [address] [facility] [id number] [place] [address] 12 Jul, 2004 IMMUNIZATIONS No Known Immunizations SOCIAL HISTORY Never Assessed REASON FOR VISIT PLAN OF CARE VITAL SIGNS MEDICATIONS Unknown [...]
--- OUTSIDE RECORDS SUMMARY | 2018-06-29 14:18 | XMS REPORT ---
Author Author JHOANA KRAUS [facility] Address [address] [place] [address] Care Team Providers Care Laboratory Administrative Director Name Role Phone JHOANA KRAUS Unavailable PROBLEMS Type Condition ICD9-CM Code TMD91-ID Code Onset Dates Condition Status SNOMED Code Problem Irregular menses N92.6 Active 64134733 Problem Generalized anxiety disorder F41.1 Active 52650200 Problem Unspecified mood [affective] disorder F39 Active 604383989 Problem PCOS (polycystic ovarian syndrome) E28.2 Active 06847369 Problem IBS (irritable bowel syndrome) K58.9 Active 56144035 Problem Tobacco abuse Z72.0 Active 02621087 Problem Tobacco abuse counseling Z71.6 Active 999555095 Problem Abnormal uterine bleeding N93.9 Active 02676971044549 Problem Other chronic pain G89.29 Active 32091531 Problem History of drug dependence/abuse F19.21 Active Problem Chronic posttraumatic stress disorder F43.12 Active 304249297 Problem Bipolar II disorder F31.81 Active 59191961 Problem PTSD (post-traumatic stress disorder) F43.10 Active 13405455 ALLERGIES No Known Allergies ENCOUNTERS Encounter Location Date Diagnosis [facility] [address] [address] 28 May, 2018 [facility] [id number] [place] [address] 53349- 6003 13 May, 2018 [facility] [id number] [place] [address] 58435- 8010 May, Concussion with loss of consciousness, initial encounter S06.0X9A [facility] [id number] [place] [address] 14409- 8913 09 Mar, 2018 Upper respiratory infection, viral J06.9 and Dysuria R30.0 [facility] [id number] [id number] 25 Mar, 2018 Dental examination Z01.20 [facility] [address] [id number] 21 Mar, 2018 Dental examination Z01.20 [facility] [address] [id number] 19 Mar, 2018 Caries K02.9 [facility] [id number] [place] [address] [id number] 13 Mar, 2018 Dental examination Z01.20 [facility] [id number] [place] [address] 28711- 7163 17 Dec, 2017 [facility] [id number] [place] [address] 69861- 2924 Dec, [facility] [id number] [place] [address] 76970- 9953 Nov, Irregular menses N92.6 ; Abnormal uterine bleeding N93.9 ; History of PCOS Z87.42 and History of unprotected sex Z72.51 [facility] [id number] [place] [address] 04478- 5547 October, [facility] [id number] [place] [address] 67825- 9731 October, Low back pain M54.5 ; Dysuria R30.0 ; Other chronic pain G89.29 and Routine gynecological examination Z01.419 [facility] [id number] [place] [address] 49369- 7970 October, Dysuria R30.0 and Vaginal discharge N89.8 [facility] [id number] [place] [address] 10470- 3840 Sep, Bipolar II disorder F31.81 ; PTSD (post-traumatic stress disorder) F43.10 ; Generalized anxiety disorder F41.1 and History of drug dependence/abuse F19.21 [facility] [id number] [place] [address] 95435- 4819 Sep, Unspecified mood [affective] disorder F39 and Post- traumatic stress disorder, unspecified F43.10 [place] [id number] [place] [address] 72037- 5469 Aug, PCOS (polycystic ovarian syndrome) E28.2 ; Recurrent major depressive disorder, in full remission F33.42 ; IBS (irritable bowel syndrome) K58.9 and Tobacco abuse Z72.0 [place] [address] 63144- 4881 Aug, Generalized anxiety disorder F41.1 and Depressive disorder, not elsewhere classified F32.9 [place] [id number] [place] [address] 72222- 3632 Aug, PCOS (polycystic ovarian syndrome) E28.2 ; Recurrent major depressive disorder, in full remission F33.42 ; IBS (irritable bowel syndrome) K58.9 ; Tobacco abuse Z72.0 ; Tobacco abuse counseling Z71.6 ; Dysuria R30.0 ; Irregular menses N92.6 ; Vaginal candidiasis B37.3 and Acute cystitis without hematuria N30.00 [place] [id number] [place] [address] 25077- 0323 May, [place] [address] 72034- 6934 18 Mar, 2017 Vaginal discharge N89.8 and Recurrent candidiasis of vagina B37.3 [place] [id number] [place] [address] 24243- 8325 13 Mar, 2017 Nausea and vomiting in adult R11.2 ; Sore throat J02.9 and Diarrhea, unspecified type R19.7 [place] [id number] [place] [address] 15300- 6548 11 Mar, 2017 [place] [address] 07609- 6530 14 Jan, 2017 Vaginal discharge N89.8 ; Dysuria R30.0 ; High risk sexual behavior Z72.51 ; Major depressive disorder, single episode F32.9 and Vaginal candidiasis B37.3 [place] [id number] [place] [address] 28097- 0156 Jan, Anxiety F41.9 [place] [address] 91767- 8961 Dec, [place] [address] 07212- 9492 Nov, Generalized anxiety disorder F41.1 ; Depressive disorder, not elsewhere classified F32.9 ; History of drug dependence/abuse F19.21 and 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 [place] [address] 05187- 3995 Nov, Vaginal discharge N89.8 ; High risk sexual behavior Z72.51 ; Potential exposure to STD Z20.2 and Vaginal candidiasis B37.3 [place] [address] 23760- 0787 Nov, History of drug dependence/abuse F19.21 and Major depressive disorder, single episode F32.9 [place] [id number] [place] [address] 58508- 7469 Nov, Right medial knee pain M25.561 [place] [address] 04069- 8787 October, Nausea and vomiting, intractability of vomiting not specified, unspecified vomiting type R11.2 and Acute pyelonephritis N10 [place] [id number] [place] [address] 83556- 8187 Sep, Major depressive disorder, single episode F32.9 ; Alcohol abuse F10.10 and Tobacco abuse Z72.0 [place] [id number] [place] [address] 28022- 4800 Sep, Major depressive disorder, single episode F32.9 ; Alcohol abuse F10.10 and History of drug dependence/abuse F19.21 [place] [address] 72607- 6200 Sep, Major depressive disorder, single episode F32.9 [facility] [id number] [place] [address] 41240 -4205 Aug, Acute cystitis with hematuria N30.01 and Dysuria R30.0 [facility] [id number] [place] [address] 65883- 9358 Aug, Dysuria R30.0 ; Vaginal candidiasis B37.3 ; Vaginal discharge N89.8 and High risk sexual behavior Z72.51 [facility] [address] 46456- 6569 Jul, [facility] [address] 43997- 3295 Jul, Major depressive disorder, single episode F32.9 ; History of drug dependence/abuse F19.21 ; Alcohol abuse F10.10 and Tobacco abuse Z72.0 [facility] [address] [id number] May, Dental examination Z01.20 and Dental caries K02.9 [facility] [address] 55062- 9190 May, Fatigue, unspecified type R53.83 and Cough R05 [facility] [id number] [place] [address] 38064- 9851 May, [facility] [id number] [place] [address] 60575- 2905 Mar, [facility] [id number] [place] [address] 96902- 0573 Mar, [facility] [address] 36169- 2730 Mar, [facility] [address] 23781- 4728 Mar, [facility] [address] 76932- 8321 10 Mar, 2016 Absence of menstruation N91.2 ; Vagina itching L29.8 ; History of drug dependence/abuse F19.21 ; History of PID Z87.42 and Acute cystitis without hematuria N30.00 [place] [id number] [place] [address] 01429- 2930 08 Sep, 2015 Routine health maintenance Z00.00 ; Late menses N91.0 ; History of drug dependence/abuse F19.21 ; Alcohol abuse F10.10 ; Tobacco abuse Z72.0 ; Tobacco abuse counseling Z71.6 and Back pain M54.9 [facility] [address] [id number] 18 Aug, 2015 Dental examination Z01.20 and Dental caries K02.9 [id number] [place] [address] 74555- 8825 26 Jul, [address] 11761- 2525 14 Jul, 2015 Surveillance of contraceptive injection Z30.42 [place] [id number] [place] [address] 27080- 6856 13 Jul, 2015 Routine screening for STI (sexually transmitted infection) Z11.3 ; Drug use F19.90 ; Counseling on substance use and abuse Z71.89 ; Unprotected sexual intercourse Z72.51 ; Encounter for counseling regarding contraception Z30.9 ; Vaginal discharge N89.8 and Skin lesions L98.9 [id number] [place] [address] 29335- 9091 May, [address] 02411- 9788 May, Yeast infection B37.[address] 89357- 3048 May, Excessive and frequent menstruation with irregular cycle N92.1 ; Other fatigue R53.83 ; General counseling and advice for contraceptive management Z30.09 ; Evaluation for contraceptive injection Z30.013 ; Cough R05 ; Vaginal irritation N89.8 and Dizziness R42 [facility] [address] [address]- 2365 14 Sep, 2014 [facility] [address] [address]- 5546 Sep, [facility] [address], [place] [address]- 9486 Aug, [facility] [id number] [place] [address] 06674- 3849 Aug, [facility] [address] [address]- 1144 Aug, [facility] [id number] [place] [address] 22144- 7911 Aug, [facility] [id number] [place] [address] 53465- 0852 Aug, [facility] [address] [address]- 4899 Aug, [facility] [address], [place] [address]- 7769 Aug, [facility] [address] [address]- 9885 Aug, [facility] [address], [place] [address]- 8351 Aug, [facility] [address] [address]- 1362 Aug, [facility] [address] 2550 Aug, [facility] [address] 8289 Aug, [facility] [address], [place] [address]- 4595 Jul, [facility] [place] [facility] [address] [id number] [place] [address]- 7653 Jul, [facility] [place] [facility] [address] [id number] [place] [address]- 7141 May, [facility] [place] [facility] [address] [id number] [place] [address]- 6335 May, [facility] [place] [facility] [address] [id number] [place] 7472 May, [facility] [place] [facility] [address] [id number] [place] [address]- 3921 May, [facility] [place] [facility] [address] [id number] [place] [address]- 7489 Mar, [facility] [place] [facility] [address] [id number] [place] [address]- 2686 Mar, [facility] [place] [facility] [address] [id number] [place] [address]- 6564 Mar, [facility] [place] [facility] [address] [id number] [place] [address]- 4120 Mar, [facility] [place] [facility] [address] [id number] [place] [address]- 7304 Mar, [facility] [place] [facility] [address] [id number] [place] [address]- 7480 Mar, [facility] [place] [facility] [address] [id number] [place] [address]- 5826 Mar, [facility] [place] [facility] [address] [id number] [place] [address]- 2362 Mar, [facility] [place] [facility] [address] [id number] [place] [address]- 3080 Mar, [facility] [place] [facility] [address] [id number] [place] [address]- 3846 Mar, [facility] [place] [facility] [address] [id number] [place] [address]- 5909 Jan, [facility] [place] [facility] [address] [id number] [place] [address]- 1952 Jan, [facility] [place] [facility] [address] [id number] [place] [address]- 3101 Nov, [facility] [place] [facility] [address] [id number] [place] [address]- 7310 Nov, [facility] [place] [facility] [address] [id number] [place] [address]- 7538 October, [facility] [place] [facility] [address] [id number] [place] [address]- 5086 October, [facility] [place] [facility] [address] [id number] [place] [address]- 1494 October, [facility] [place] [facility] [address] [id number] [place] [address]- 6753 October, [facility] [place] [facility] [address] [id number] [place] [address]- 8488 October, [facility] [place] [facility] [address] [id number] [place] [address]- 4117 October, [facility] [place] [facility] [address] [id number] [place] [address]- 2864 October, [facility] [place] [facility] [address] [id number] [place] [address]- 7412 October, [facility] [place] [facility] [address] [id number] [place] [address]- 0713 Sep, [facility] [place] [facility] [address] [id number] [place] [address]- 5899 Sep, [facility] [place] [facility] [address] [id number] [place] [address]- 3415 Aug, [facility] [place] [facility] [address] [id number] [place] [address]- 2386 Aug, [facility] [place] [facility] [address] [id number] [place] [address]- 0086 Aug, [facility] [address] [id number] [place] [address]- 4167 Aug, [facility] [address] [id number] [place] [address]- 0389 May, [facility] [address] [id number] [place] [address]- 0516 May, [facility] [address] [id number] [place] [address]- 9426 May, [facility] [address] [id number] [place] [address]- 6583 May, [facility] [address] [id number] [place] [address]- 7181 May, [facility] [address] [id number] [place] [address]- 0428 May, [facility] [address] [id number] [place] [address]- 5480 May, [facility] [address] [id number] [place] [address]- 5579 May, [facility] [address] [facility] [id number] [place] [address]- 1136 Mar, [facility] [place] [facility] [address] [id number] [place] [address]- 3477 Mar, [facility] [address] [id number] [place] [address]- 2748 Mar, [facility] [place] [facility] [address] [id number] [place] [address]- 1334 Jan, [facility] [place] [facility] [address] [id number] [place] [address]- 2546 Jan, [facility] [place] [facility] [address] [id number] [place] [address]- 3845 Dec, [facility] [address] [id number] [place] [address]- 1788 Dec, [facility] [place] [facility] [address] [id number] [place] [address]- 1756 Dec, [facility] [place] [facility] [address] [id number] [place] [address]- 7067 04 Sep, 2012 [facility] [place] [facility] [address] [id number] [place] [address]- 0000 28 Aug, 2012 [facility] [address] [id number] [place] [address]- 0603 21 Aug, 2012 [facility] [place] [facility] [address] [id number] [place] [address]- 8120 18 Aug, 2012 [facility] [place] [facility] [address] [id number] [place] [address]- 0400 15 Aug, 2012 [facility] [address] [id number] [place] [address]- 0654 14 Aug, 2012 [facility] [place] [facility] [address] [id number] [place] [address]- 6467 Aug, [facility] [place] [facility] [address] [id number] [address]- 4146 16 Jul, 2012 [facility] [place] [facility] [address] [id number] [place] [address]- 0469 Jul, [facility] [place] [facility] [address] [id number], [place] [address]- 2693 Jul, [facility] [place] [facility] [address] [id number] [place] [address]- 4028 Jul, [facility] [place] [facility] [address] [id number] [place] [address]- 9928 Jul, [facility] [place] [facility] [address] [id number], [place] [address]- 3306 Jul, [facility] [place] [facility] [address] [id number], [place] [address]- 3711 May, [facility] [place] [facility] [address] [id number] [place] [address]- 5126 May, [facility] [place] [facility] [address] [facility] [id number], [place] [address]- 2503 May, [facility] [place] [facility] [address] [facility] [id number] [place] [address]- 4152 May, [facility] [place] [facility] [address] [facility] [id number] [place] [address]- 5446 15 May, 2012 [facility] [place] [facility] [address] [facility] [id number] [place] [address], [place] [address]- 8268 May, [facility] [place] [facility] [address] [facility] [id number] [place] 7437 Mar, [facility] [place] [facility] [id number] [place] [address] 14089- 8526 Mar, [facility] [place] [facility] [address] [facility] [id number], [place] [address]- 6117 Mar, [facility] [place] [facility] [address] [address]- 7476 Mar, [facility] [place] [facility] [address], [place] [address]- 3106 Mar, [facility] [place] [facility] [address], [place] [address]- 7345 Mar, [facility] [place] [facility] [address] [facility] [id number], [place] [address]- 4976 Mar, [facility] [place] [facility] [address] [facility] [id number] [address]- 9314 Dec, [facility] [place] [facility] [address] [facility] [id number], [place] [address]- 6548 Nov, [facility] [place] [facility] [id number] [address]- 4916 Sep, [facility] [place] [facility] [address] [id number] [place] [address]- 9280 29 Aug, 2011 [facility] [place] [facility] [address] [id number] [place] [address]- 0106 27 Aug, 2011 [facility] [place] [facility] [address] [id number] [place] [address]- 6216 22 Aug, 2011 [facility] [place] [facility] [address] [id number] [place] [address] 2546 Aug, [facility] [place] [facility] [address] [id number] [place] [address]- 8953 16 Aug, 2011 [facility] [place] [facility] [address] [id number] [place] [address]- 0128 Aug, [facility] [place] [facility] [address] [id number] [place] [address]- 8784 Jul, [facility] [place] [facility] [address] [id number] [place] [address]- 7574 Jul, [facility] [place] [facility] [address] [id number] [place] [address]- 7565 Jul, [facility] [place] [facility] [address] [id number] [place] [address]- 3100 May, [facility] [place] [facility] [address] [id number] [place] [address]- 5378 May, [facility] [place] [facility] [address] [id number] [place] [address]- 0247 Mar, [facility] [place] [facility] [address] [id number] [place] [address]- 9135 24 Mar, 2011 [facility] [place] [facility] [address] [id number] [place] [address]- 1109 Mar, [facility] [place] [facility] [address] [id number] [place] [address]- 7714 Mar, [facility] [place] [facility] [address] [id number] [place] [address] Dec, [facility] [place] [facility] [address] [id number] [id number] 14 May, 2010 [facility] [place] [facility] [address] [id number] [place] [address] 06 May, 2010 [facility] [place] [facility] [address] [id number] [place] [address] 22 May, 2010 [facility] [place] [facility] [address] [id number] [place] [address] 14 Mar, 2010 [facility] [place] [facility] [address] [id number] [place] [address] 14 Mar, 2010 [facility] [place] [facility] [address] [id number] [place] [address] Jan, [facility] [place] [facility] [address] [id number] [place] [address] Aug, [facility] [place] [facility] [address] [id number] [address] 31 May, 2009 [facility] [place] [facility] [address] [id number] [place] [address] 03 May, 2009 [facility] [place] [facility] [address] [id number] [address] 16 May, 2009 [facility] [place] [facility] [address] [id number] [address] 16 May, 2009 [facility] [place] [facility] [address] [id number] [address] 02 May, 2009 [facility] [place] [facility] [address] [id number] [address] Mar, [facility] [place] [facility] [address] [id number], [place] [address] 10 Jul, 2006 [facility] [place] [facility] [address] [id number], [place] [address] 14 May, 2006 [facility] [place] [facility] [address] [facility] [id number] [place] [address] 11 Mar, 2006 [facility] [address] [facility] [id number] [place] [address] Sep, [facility] [address] [facility] [id number] [place] [address] Jul, IMMUNIZATIONS No Known Immunizations SOCIAL HISTORY Never Assessed REASON FOR VISIT ER f/u VC- from concussion and poss face fracture Benjamin BLACK , left side jaw is hurting and cant open fully Benjamin Black , still having dizzy/headaches Benjamin Black , advised of shots needed and Pt stated she didnt want any shots today.. Benjamin Black PLAN OF CARE Activity Details Follow Up prn Reason: VITAL SIGNS Height 66 in 2018-05-06 Weight 158.2 lbs 2018-05-06 Temperature 97.6 degrees Fahrenheit 2018-05-06 Heart Rate 102 bpm 2018-05-06 Respiratory Rate 20 2018-05-06 BMI 25.53 kg/m2 2018-05-06 Blood pressure systolic 112 mmHg 2018-05-06 Blood pressure diastolic 66 mmHg 2018-05-06 MEDICATIONS Medication Instructions Dosage Frequency Start Date End Date Duration Status Sudafed 30 MG Orally every 6 hrs 1 tablet as needed 6h Mar, 3 days Not-Taking RESULTS No Results PROCEDURES No Known procedures [...]
--- OUTSIDE RECORDS SUMMARY | 2018-06-29 14:33 | XMS REPORT | Continuity of Care Document ---
Author Author [facility] Ctr of [facility] Ctr of [facility] Address Unknown Phone Unavailable Allergies Active Description Code Type Severity Reaction Onset Reported/Identified Relationship to Patient Clinical Status Yes NO KNOWN DRUG ALLERGIES NO KNOWN DRUG ALLERG UNKNOWN Yes NO KNOWN DRUG ALLERGIES UNKNOWN NO KNOWN DRUG ALLERG Yes No Known Drug Allergies [id number] Drug Allergy Unknown N/A 08/30/2011 Medications Medication [...] GARY V58.69 MEDICATION HIGH RISK 02/23/2008 REFUGIO BASKET MENDER, LIDIA A V03.89 Meningococcal, Other Specified Single Bacterial Disease 02/23/2008 REFUGIO BASKET MENDER, LIDIA A V05.3 Hepatitis Viral/all 02/23/2008 REFUGIO BASKET MENDER, LIDIA A V06.5 Dt, Tetanus-diphtheria [td] 02/23/2008 REFUGIO BASKET MENDER, LIDIA A V20.2 WELL CHILD, ROUTINE 02/23/2008 REFUGIO BASKET MENDER, LIDIA A V58.69 MEDICATION HIGH RISK 02/23/2008 REFUGIO BASKET MENDER, LIDIA A V03.89 Meningococcal, Other Specified Single Bacterial Disease 02/23/2008 REFUGIO BASKET MENDER, LIDIA A V05.3 Hepatitis Viral/all 02/23/2008 REFUGIO BASKET MENDER, LIDIA A V06.5 Dt, Tetanus-diphtheria [td] 02/23/2008 REFUGIO BASKET MENDER, LIDIA A V20.2 WELL CHILD, ROUTINE 02/23/2008 REFUGIO BASKET MENDER, LIDIA A V58.69 MEDICATION HIGH RISK 02/23/2008 REFUGIO BASKET MENDER, LIDIA A V03.89 Meningococcal, Other Specified Single Bacterial Disease 02/23/2008 REFUGIO BASKET MENDER, LIDIA A V05.3 Hepatitis Viral/all 02/23/2008 REFUGIO BASKET MENDER, LIDIA A V06.5 Dt, Tetanus-diphtheria [td] 02/23/2008 REFUGIO BASKET MENDER, LIDIA A V20.2 WELL CHILD, ROUTINE 02/23/2008 REFUGIO BASKET MENDER, LIDIA A V58.69 MEDICATION HIGH RISK 02/23/2008 REFUGIO BASKET MENDER, LIDIA A V03.89 Meningococcal, Other Specified Single Bacterial Disease 02/23/2008 REFUGIO BASKET MENDER, LIDIA A V05.3 Hepatitis Viral/all 02/23/2008 REFUGIO BASKET MENDER, LIDIA A V06.5 Dt, Tetanus-diphtheria [td] 02/23/2008 REFUGIO BASKET MENDER, LIDIA A V20.2 WELL CHILD, ROUTINE 02/23/2008 REFUGIO BASKET MENDER, LIDIA A V58.69 MEDICATION HIGH RISK 02/23/2008 REFUGIO BASKET MENDER, LIDIA A V03.89 Meningococcal, Other Specified Single Bacterial Disease 02/23/2008 REFUGIO BASKET MENDER, LIDIA A V05.3 Hepatitis Viral/all 02/23/2008 REFUGIO BASKET MENDER, LIDIA A V06.5 Dt, Tetanus-diphtheria [td] 02/23/2008 REFUGIO BASKET MENDER, LIDIA A V20.2 WELL CHILD, ROUTINE 02/23/2008 REFUGIO TON, LIDIA A V58.69 MEDICATION HIGH RISK 02/23/2008 REFUGIO TON, LIDIA A V03.89 Meningococcal, Other Specified Single Bacterial Disease 02/23/2008 REFUGIO BASKET MENDER, LIDIA A V05.3 Hepatitis Viral/all 02/23/2008 REFUGIO BASKET MENDER, LIDIA A V06.5 Dt, Tetanus-diphtheria [td] 02/23/2008 [...] DO V58.69 MEDICATION HIGH RISK 02/23/2008 REFUGIO BASKET MENDER, LIDIA A V03.89 Meningococcal, Other Specified Single Bacterial Disease 02/23/2008 REFUGIO BASKET MENDER, LIDIA A V05.3 Hepatitis Viral/all 02/23/2008 REFUGIO BASKET MENDER, LIDIA A V06.5 Dt, Tetanus-diphtheria [td] 02/23/2008 REFUGIO BASKET MENDER, LIDIA A V20.2 WELL CHILD, ROUTINE 02/23/2008 REFUGIO BASKET MENDER, LIDIA A V58.69 MEDICATION HIGH RISK 02/23/2008 [...] Vero V58.69 MEDICATION HIGH RISK 02/23/2008 REFUGIO BASKET MENDER, LIDIA A V03.89 Meningococcal, Other Specified Single Bacterial Disease 02/23/2008 REFUGIO BASKET MENDER, LIDIA A V05.3 Hepatitis Viral/all 02/23/2008 REFUGIO BASKET MENDER, LIDIA A V06.5 Dt, Tetanus-diphtheria [td] 02/23/2008 REFUGIO BASKET MENDER, LIDIA A V20.2 WELL CHILD, ROUTINE 02/23/2008 REFUGIO BASKET MENDER, LIDIA A V58.69 MEDICATION HIGH RISK 04/30/2008 [...] MD 780.79 Malaise And Fatigue 04/30/2008 REFUGIO BASKET MENDER, LIDIA A 780.60 Fever, Unspecified 04/30/2008 REFUGIOAdy MEDINA LIDIA A 780.79 Malaise And Fatigue 04/30/2008 REFUGIO MEDINA LIDIA A 780.60 Fever, Unspecified 04/30/2008 REFUGIO BASKET MENDER, LIDIA A 780.79 Malaise And Fatigue 04/30/2008 REFUGIOJODIE MEDINA, LIDIA A 780.60 Fever, Unspecified 04/30/2008 REFUGIO BASKET MENDER, LIDIA A 780.79 Malaise And Fatigue 04/30/2008 REFUGIO BASKET MENDER, LIDIA A 780.60 Fever, Unspecified 04/30/2008 REFUGIO BASKET MENDER, LIDIA A 780.79 Malaise And Fatigue 04/30/2008 REFUGIO BASKET MENDER, LIDIA A 780.60 Fever, Unspecified 04/30/2008 REFUGIO BASKET MENDER, LIDIA A 780.79 Malaise And Fatigue 04/30/2008 REFUGIO MEDINA, LIDIA A 780.60 Fever, Unspecified 04/30/2008 REFUGIO BASKET MENDER, LIDIA A 780.79 Malaise And Fatigue 04/30/2008 AZAEL BECKER, RAYMUNDO 780.60 Fever, Unspecified 04/30/2008 AZAEL BECKER, RAYMUNDO 780.79 Malaise And Fatigue 04/30/2008 LUEVANO DO, MIKE K 780.60 Fever, Unspecified 04/30/2008 LUEVANO DO, MIKE K 780.79 Malaise And Fatigue 04/30/2008 REFUGIO BASKET MENDER, LIDIA A 780.60 Fever, Unspecified 04/30/2008 REFUGIO BASKET MENDER, LIDIA A 780.79 Malaise And Fatigue 04/30/2008 LUEVANO DO, MIKE K 780.60 Fever, Unspecified 04/30/2008 LUEVANO DO, MIKE K 780.79 Malaise And Fatigue 04/30/2008 LUEVANO DO, MIKE K 780.60 Fever, Unspecified 04/30/2008 LUEVANO DO, MIKE K 780.79 Malaise And Fatigue 04/30/2008 REFUGIO BASKET MENDER, LIDIA A 780.60 Fever, Unspecified 04/30/2008 REFUGIO BASKET MENDER, LIDIA A 780.79 Malaise And Fatigue 08/04/2008 [...] 382.4 Unspecified Suppurative Otitis Media 08/04/2008 REFUGIO BASKET MENDER, LIDIA A 132.0 Pediculus Capitis (head Louse) 08/04/2008 REFUGIO BASKET MENDER, LIDIA A 382.4 Unspecified Suppurative Otitis Media 08/04/2008 REFUGIO BASKET MENDER, LIDIA A 132.0 Pediculus Capitis (head Louse) 08/04/2008 REFUGIO BASKET MENDER, LIDIA A 382.4 Unspecified Suppurative Otitis Media 08/04/2008 REFUGIO BASKET MENDER, LIDIA A 132.0 Pediculus Capitis (head Louse) 08/04/2008 REFUGIO BASKET MENDER, LIDIA A 382.4 Unspecified Suppurative Otitis Media 08/04/2008 REFUGIO BASKET MENDER, LIDIA A 132.0 Pediculus Capitis (head Louse) 08/04/2008 REFUGIO BASKET MENDER, LIDIA A 382.4 Unspecified Suppurative Otitis Media 08/04/2008 REFUGIO BASKET MENDER, LIDIA A 132.0 Pediculus Capitis (head Louse) 08/04/2008 REFUGIO BASKET MENDER, LIDIA A 382.4 Unspecified Suppurative Otitis Media 08/04/2008 REFUGIO BASKET MENDER, LIDIA A 132.0 Pediculus Capitis (head Louse) 08/04/2008 REFUGIO BASKET MENDER, LIDIA A 382.4 Unspecified Suppurative Otitis Media 08/04/2008 AAZEL BECKER, RAYMUNDO 132.0 Pediculus Capitis (head Louse) 08/04/2008 AZAEL BECKER, RAYMUNDO 382.4 Unspecified Suppurative Otitis Media 08/04/2008 LUEVANO DO, MIKE K 132.0 Pediculus Capitis (head Louse) 08/04/2008 LUEVANO DO, MIKE K 382.4 Unspecified Suppurative Otitis Media 08/04/2008 REFUGIO BASKET MENDER, LIDIA A 132.0 Pediculus Capitis (head Louse) 08/04/2008 REFUGIO BASKET MENDER, LIDIA A 382.4 Unspecified Suppurative Otitis Media [...] MD 300.4 Mo Dysthymic Disorder 12/02/2008 REFUGIO BASKET MENDER, LIDIA A 300.4 Mo Dysthymic Disorder 12/02/2008 REFUGIO TON, LIDIA A 300.4 Mo Dysthymic Disorder 12/02/2008 REFUGIO BASKET MENDER, LIDIA A 300.4 Mo Dysthymic Disorder 12/02/2008 REFUGIO BASKET MENDER, LIDIA A 300.4 Mo Dysthymic Disorder 12/02/2008 REFUGIO BASKET MENDER, LIDIA A 300.4 Mo Dysthymic Disorder 12/02/2008 REFUGIO MEDINA LIDIA A 300.4 Mo Dysthymic Disorder 12/02/2008 RAYMUNDO ADDISON MD 300.4 Mo Dysthymic Disorder 12/02/2008 MIKE LUEVANO DO 300.4 Mo Dysthymic Disorder 12/02/2008 REFUGIO MEDINA, LDIIA A 300.4 Mo Dysthymic Disorder 12/02/2008 LUEVANO [...] Classified Elsewhere And Of Unspecified Site 04/07/2009 ERFUGIO MEDINA, LIDIA A 079.99 Unspecified Viral Infection In Conditions Classified Elsewhere And Of Unspecified Site 04/07/2009 JOSEFINA HUFF APRNIDI A 079.99 Unspecified Viral Infection In Conditions Classified Elsewhere And Of Unspecified Site 04/07/2009 REFUGIO BASKET MENDER, LIDIA A 079.99 Unspecified Viral Infection In Conditions Classified Elsewhere And Of Unspecified Site 04/07/2009 REFUGIO BASKET MENDER, LIDIA A 079.99 Unspecified Viral Infection In Conditions Classified Elsewhere And Of Unspecified Site 04/07/2009 REFUGIO BASKET MENDER, LIDIA A 079.99 Unspecified Viral Infection In [...] LIDIA A 789.00 Abdominal Pain 05/02/2009 REFUGIO BASKET MENDER, LIDIA A 789.00 Abdominal Pain 05/02/2009 RAYMUNDO ADDISON MD 789.00 Abdominal Pain 05/02/2009 CHLOÉ GARSIA, MIKE K 789.00 Abdominal Pain 05/02/2009 REFUGIO BASKET MENDER, LIDIA A 789.00 Abdominal Pain 05/02/2009 CHLOÉ GARSIA, MIKE K 789.00 Abdominal Pain 05/02/2009 CHLOÉ GARSIA, MIKE K 789.00 Abdominal Pain 05/02/2009 REFUGIO BASKET MENDER, LIDIA A 789.00 Abdominal Pain 06/02/2009 373.11 [...] A 373.11 Stye (hordeolum Externum) 06/02/2009 REFUGIO BASKET MENDER, LIDIA A 682.9 Cellulitis 06/02/2009 REFUGIO BASKET MENDER, LIDIA A 373.11 Stye (hordeolum Externum) 06/02/2009 REFUGIO BASKET MENDER, LIDIA A 682.9 Cellulitis 06/02/2009 REFUGIO BASKET MENDER, LIDIA A 373.11 Stye (hordeolum Externum) 06/02/2009 REFUGIO BASKET MENDER, LIDIA A 682.9 Cellulitis 06/02/2009 REFUGIO BASKET MENDER, LIDIA A 373.11 Stye (hordeolum Externum) 06/02/2009 REFUGIO BASKET MENDER, LIDIA A 682.9 Cellulitis 06/02/2009 REFUGIO BASKET MENDER, LIDIA A 373.11 Stye (hordeolum Externum) 06/02/2009 REFUGIO BASKET MENDER, LIDIA A 682.9 Cellulitis 06/02/2009 REFUGIO BASKET MENDER, LIDIA A 373.11 Stye (hordeolum Externum) 06/02/2009 REFUGIO BASKET MENDER, LIDIA A 682.9 Cellulitis 06/02/2009 AZAEL BECKER, RAYMUNDO 373.11 Stye (hordeolum Externum) 06/02/2009 RAYMUNDO ADDISON MD 682.9 Cellulitis 06/02/2009 SHAWN LUEVANO DOA K 373.11 Stye (hordeolum Externum) 06/02/2009 LUEVANO DOSHAWNA K 682.9 Cellulitis 06/02/2009 REFUGIO BASKET MENDER, LIDIA A 373.11 Stye (hordeolum Externum) 06/02/2009 REFUGIO BASKET MENDER, LIDIA A 682.9 Cellulitis 06/02/2009 LUEVANO DO MIKE K 373.11 Stye (hordeolum Externum) 06/02/2009 LUEVANO DO MIKE K 682.9 Cellulitis 06/02/2009 LUEVANO DO, MIKE K 373.11 Stye (hordeolum Externum) 06/02/2009 LUEVANO DO MIKE K 682.9 Cellulitis 06/02/2009 REFUGIO BASKET MENDER, LIDIA A 373.11 Stye (hordeolum Externum) 06/02/2009 REFUGIO BASKET MENDER, LIDIA A 682.9 Cellulitis 08/18/2009 307.20 TIC [...] MD 781.0 Abnormal Involuntary Movements 08/18/2009 REFUGIO BASKET MENDER, LIDIA A 307.20 TIC DISORDER 08/18/2009 REFUGIO BASKET MENDER, LIDIA A 781.0 Abnormal Involuntary Movements 08/18/2009 REFUGIO BASKET MENDER, LIDIA A 307.20 TIC DISORDER 08/18/2009 REFUGIO BASKET MENDER, LIDIA A 781.0 Abnormal Involuntary Movements 08/18/2009 REFUGIO BASKET MENDER, LIDIA A 307.20 TIC DISORDER 08/18/2009 REFUGIO BASKET MENDER, LIDIA A 781.0 Abnormal Involuntary Movements 08/18/2009 REFUGIO BASKET MENDER, LIDIA A 307.20 TIC DISORDER 08/18/2009 REFUGIO BASKET MENDER, LIDIA A 781.0 Abnormal Involuntary Movements 08/18/2009 REFUGIO BASKET MENDER, LIDIA A 307.20 TIC DISORDER 08/18/2009 REFUGIO BASKET MENDER, LIDIA A 781.0 Abnormal Involuntary Movements 08/18/2009 REFUGIO BASKET MENDER, LIDIA A 307.20 TIC DISORDER 08/18/2009 REFUGIO BASKET MENDER, LIDIA A 781.0 Abnormal Involuntary Movements 08/18/2009 RAYMUNDO ADDISON MD 307.20 TIC DISORDER 08/18/2009 RAYMUNDO ADDISON MD 781.0 Abnormal Involuntary Movements 08/18/2009 LUEVANO DO, MIKE K 307.20 TIC DISORDER 08/18/2009 LUEVANO DO, MIKE K 781.0 Abnormal Involuntary Movements 08/18/2009 REFUGIO BASKET MENDER, LIDIA A 307.20 TIC DISORDER 08/18/2009 REFUGIO BASKET MENDER, LIDIA A 781.0 Abnormal Involuntary Movements 08/18/2009 LUEVANO DO, MIKE K 307.20 TIC DISORDER 08/18/2009 LUEVANO DO, MIKE K 781.0 Abnormal Involuntary Movements 08/18/2009 LUEVANO DO, MIKE K 307.20 TIC DISORDER 08/18/2009 LUEVANO DO, MIKE K 781.0 Abnormal Involuntary Movements 08/18/2009 REFUGIO APRN, LIDIA A 307.20 TIC DISORDER 08/18/2009 REFUGIO BASKET MENDER, LIDIA A 781.0 Abnormal Involuntary Movements 10/05/2009 [...] Respiratory Infections Of Unspecified Site 10/05/2009 REFUGIO BASKET MENDER, LIDIA A 465.9 Acute Upper Respiratory Infections Of Unspecified Site 10/05/2009 REFUGIO BASKET MENDER, LIDIA A 465.9 Acute Upper Respiratory Infections Of Unspecified Site 10/05/2009 REFUGIO BASKET MENDER, LIDIA A 465.9 Acute Upper Respiratory Infections Of Unspecified Site 10/05/2009 REFUGIO BASKET MENDER, LIDIA A 465.9 Acute Upper Respiratory Infections Of Unspecified Site 10/05/2009 RAYMUNDO ADDISON MD 465.9 Acute Upper Respiratory Infections Of Unspecified Site 10/05/2009 LUEVANO DOMIKE K 465.9 Acute Upper Respiratory Infections Of Unspecified Site 10/05/2009 REFUGIO BASKET MENDER, LIDIA A 465.9 Acute Upper Respiratory Infections Of Unspecified Site 10/05/2009 LUEVANO DO, MIKE K 465.9 Acute Upper Respiratory Infections Of Unspecified Site 10/05/2009 LUEVANO DO, MIKE K 465.9 Acute Upper Respiratory Infections Of Unspecified Site 10/05/2009 REFUGIO BASKET MENDER, LIDIA A 465.9 Acute Upper Respiratory Infections Of Unspecified Site 10/06/2009 477.9 RHINITIS 10/06/2009 477.9 RHINITIS 10/06/2009 477.9 RHINITIS 10/06/2009 477.9 RHINITIS 10/06/2009 GARY RENO MD 477.9 RHINITIS 10/06/2009 477.9 RHINITIS 10/06/2009 MIKE LUEVANO DO 477.9 RHINITIS 10/06/2009 477.9 RHINITIS 10/06/2009 477.9 RHINITIS 10/06/2009 477.9 RHINITIS 10/06/2009 GARY RENO MD 477.9 RHINITIS 10/06/2009 REFUGIO BASKET MENDER, LIDIA A 477.9 RHINITIS 10/06/2009 REFUGIO BASKET MENDER, LIDIA A 477.9 RHINITIS 10/06/2009 REFUGIO BASKET MENDER, LIDIA A 477.9 RHINITIS 10/06/2009 REFUGIO BASKET MENDER, LIDIA A 477.9 RHINITIS 10/06/2009 REFUGIO BASKET MENDER, LIDIA A 477.9 RHINITIS 10/06/2009 REFUGIO BASKET MENDER, LIDIA A 477.9 RHINITIS 10/06/2009 AZAEL MD, RAYMUNDO 477.9 RHINITIS 10/06/2009 LUEVANO DO, MIKE K 477.9 RHINITIS 10/06/2009 REFUGIO BASKET MENDER, LIDIA A 477.9 RHINITIS 10/06/2009 LUEVANO DO, MIKE K 477.9 RHINITIS 10/06/2009 LUEVANO DO, MIKE K 477.9 RHINITIS 10/06/2009 REFUGIO BASKET MENDER, LIDIA A 477.9 RHINITIS 10/20/2009 314.01 ADHD COMBINED 10/20/2009 314.01 ADHD COMBINED 10/20/2009 314.01 ADHD COMBINED 10/20/2009 314.01 ADHD COMBINED 10/20/2009 SHADIA BECKER, GARY 314.01 ADHD COMBINED 10/20/2009 314.01 ADHD COMBINED 10/20/2009 LUEVANO DO, MIKE K 314.01 ADHD COMBINED 10/20/2009 314.01 ADHD COMBINED 10/20/2009 314.01 ADHD COMBINED 10/20/2009 314.01 ADHD COMBINED 10/20/2009 SHADIA BECKER, GARY 314.01 ADHD COMBINED 10/20/2009 REFUGIO BASKET MENDER, LIDIA A 314.01 ADHD COMBINED 10/20/2009 REFUGIO BASKET MENDER, LIDIA A 314.01 ADHD COMBINED 10/20/2009 REFUGIO BASKET MENDER, LIDIA A 314.01 ADHD COMBINED 10/20/2009 REFUGIO BASKET MENDER, LIDIA A 314.01 ADHD COMBINED 10/20/2009 REFUGIO BASKET MENDER, LIDIA A 314.01 ADHD COMBINED 10/20/2009 REFUGIO BASKET MENDER, LIDIA A 314.01 ADHD COMBINED 10/20/2009 AZAEL BECKER, RAYMUNDO 314.01 ADHD COMBINED 10/20/2009 LUEVANO DO, MIKE K 314.01 ADHD COMBINED 10/20/2009 REFUGIO BASKET MENDER, LIDIA A 314.01 ADHD COMBINED 10/20/2009 LUEVANO DO, MIKE K 314.01 ADHD COMBINED 10/20/2009 LUEVANO DO, MIKE K 314.01 ADHD COMBINED 10/20/2009 REFUGIO BASKET MENDER, LIDIA A 314.01 ADHD COMBINED 11/24/2009 443.0 RAYNAUD'S SYNDROME 11/24/2009 443.0 RAYNAUD'S SYNDROME 11/24/2009 443.0 RAYNAUD'S SYNDROME 11/24/2009 443.0 RAYNAUD'S SYNDROME 11/24/2009 GARY RENO MD 443.0 RAYNAUD'S SYNDROME 11/24/2009 443.0 RAYNAUD'S SYNDROME 11/24/2009 MIKE LUEVANO DO K 443.0 RAYNAUD'S SYNDROME 11/24/2009 443.0 RAYNAUD'S SYNDROME 11/24/2009 443.0 RAYNAUD'S SYNDROME 11/24/2009 443.0 RAYNAUD'S SYNDROME 11/24/2009 GARY RENO MD 443.0 RAYNAUD'S SYNDROME 11/24/2009 REFUGIO BASKET MENDER, LIDIA A 443.0 RAYNAUD'S SYNDROME 11/24/2009 REFUGIO BASKET MENDER, LIDIA A 443.0 RAYNAUD'S SYNDROME 11/24/2009 REFUGIO BASKET MENDER, LIDIA A 443.0 RAYNAUD'S SYNDROME 11/24/2009 REFUGIO BASKET MENDER, LIDIA A 443.0 RAYNAUD'S SYNDROME 11/24/2009 REFUGIO MEDINA, LIDIA A 443.0 RAYNAUD'S SYNDROME 11/24/2009 REFUGIO BASKET MENDER, LIDIA A 443.0 RAYNAUD'S SYNDROME 11/24/2009 RAYMUNDO [...] GARY 599.0 Urinary Tract Infection 04/13/2010 REFUGIO BASKET MENDER, LIDIA A 599.0 Urinary Tract Infection 04/13/2010 REFUGIO BASKET MENDER, LIDIA A 599.0 Urinary Tract Infection 04/13/2010 REFUGIO BASKET MENDER, LIDIA A 599.0 Urinary Tract Infection 04/13/2010 REFUGIO BASKET MENDER, LIDIA A 599.0 Urinary Tract Infection 04/13/2010 REFUGIO BASKET MENDER, LIDIA A 599.0 Urinary Tract Infection 04/13/2010 REFUGIO BASKET MENDER, LIDIA A 599.0 Urinary Tract Infection 04/13/2010 AZAEL BECKER, RAYMUNDO 599.0 Urinary Tract Infection 04/13/2010 LUEVANO DO, MIKE K 599.0 Urinary Tract Infection 04/13/2010 REFUGIO BASKET MENDER, LIDIA A 599.0 Urinary Tract Infection 04/13/2010 LUEVANO DO, MIKE K 599.0 Urinary Tract Infection 04/13/2010 LUEVANO DO, MIKE K 599.0 Urinary Tract Infection 04/13/2010 REFUGIO BASKET MENDER, LIDIA A 599.0 Urinary Tract Infection 06/05/2010 110.5 Tinea Corporis 06/05/2010 110.5 Tinea Corporis 06/05/2010 110.5 Tinea Corporis 06/05/2010 110.5 Tinea Corporis 06/05/2010 GARY RENO MD 110.5 Tinea Corporis 06/05/2010 110.5 Tinea Corporis 06/05/2010 LUEVANO DO, MIKE K 110.5 Tinea Corporis 06/05/2010 110.5 Tinea Corporis 06/05/2010 110.5 Tinea Corporis 06/05/2010 110.5 Tinea Corporis 06/05/2010 GARY RENO MD 110.5 Tinea Corporis 06/05/2010 REFUGIO BASKET MENDER, LIDIA A 110.5 Tinea Corporis 06/05/2010 REFUGIO BASKET MENDER, LIDIA A 110.5 Tinea Corporis 06/05/2010 REFUGIO BASKET MENDER, LIDIA A 110.5 Tinea Corporis 06/05/2010 REFUGIO BASKET MENDER, LIDIA A 110.5 Tinea Corporis 06/05/2010 REFUGIO BASKET MENDER, LIDIA A 110.5 Tinea Corporis 06/05/2010 REFUGIO BASKET MENDER, LIDIA A 110.5 Tinea Corporis 06/05/2010 AZAEL BECKER, RAYMUNDO 110.5 Tinea Corporis 06/05/2010 LUEVANO DO, MIKE K 110.5 Tinea Corporis 06/05/2010 REFUGIO BASKET MENDER, LIDIA A 110.5 Tinea Corporis 06/05/2010 LUEVANO DO, MIKE K 110.5 Tinea Corporis 06/05/2010 LUEVANO DO, MIKE K 110.5 Tinea Corporis 06/05/2010 REFUGIO BASKET MENDER, LIDIA A 110.5 Tinea Corporis 08/07/2010 461.9 Sinusitis Acute 08/07/2010 461.9 Sinusitis Acute 08/07/2010 461.9 Sinusitis Acute 08/07/2010 461.9 Sinusitis Acute 08/07/2010 GARY RENO MD 461.9 Sinusitis Acute 08/07/2010 461.9 Sinusitis Acute 08/07/2010 MIKE LUEVANO DO K 461.9 Sinusitis Acute 08/07/2010 461.9 Sinusitis Acute 08/07/2010 461.9 Sinusitis Acute 08/07/2010 461.9 Sinusitis Acute 08/07/2010 GARY RENO MD 461.9 Sinusitis Acute 08/07/2010 REFUGIO BASKET MENDER, LIDIA A 461.9 Sinusitis Acute 08/07/2010 REFUGIO BASKET MENDER, LIDIA A 461.9 Sinusitis Acute 08/07/2010 REFUGIO BASKET MENDER, LIDIA A 461.9 Sinusitis Acute 08/07/2010 REFUGIO BASKET MENDER, LIDIA A 461.9 Sinusitis Acute 08/07/2010 REFUGIO BASKET MENDER, LIDIA A 461.9 Sinusitis Acute 08/07/2010 REFUGIO BASKET MENDER, LIDIA A 461.9 Sinusitis Acute 08/07/2010 AZAEL BECKER, RAYMUNDO 461.9 Sinusitis Acute 08/07/2010 LUEVANO SHAWN GARSIAA K 461.9 Sinusitis Acute 08/07/2010 REFUGIO BASKET MENDER, LIDIA A 461.9 Sinusitis Acute 08/07/2010 LUEVANO DO, MIKE K 461.9 Sinusitis Acute 08/07/2010 LUEVANO DO, MIKE K 461.9 Sinusitis Acute 08/07/2010 REFUGIO BASKET MENDER, LIDIA A 461.9 Sinusitis Acute 10/02/2010 692.9 [...] MD 692.9 Dermatitis Contact Unspecified 10/02/2010 REFUGIO BASKET MENDER, LIDIA A 692.9 Dermatitis Contact Unspecified 10/02/2010 REFUGIO BASKET MENDER, LIDIA A 692.9 Dermatitis Contact Unspecified 10/02/2010 REFUGIO BASKET MENDER, LIDIA A 692.9 Dermatitis Contact Unspecified 10/02/2010 REFUGIO BASKET MENDER, LIDIA A 692.9 Dermatitis Contact Unspecified 10/02/2010 REFUGIO BASKET MENDER, LIDIA A 692.9 Dermatitis Contact Unspecified 10/02/2010 REFUGIO BASKET MENDER, LIDIA A 692.9 Dermatitis Contact Unspecified 10/02/2010 RAYMUNDO ADDISON MD 692.9 Dermatitis Contact Unspecified 10/02/2010 LUEVANO DO, MIKE K 692.9 Dermatitis Contact Unspecified 10/02/2010 REFUGIO BASKET MENDER, LIDIA A 692.9 Dermatitis Contact Unspecified 10/02/2010 LUEVANO DO, MIKE K 692.9 Dermatitis Contact Unspecified 10/02/2010 LUEVANO DO, MIKE K 692.9 Dermatitis Contact Unspecified 10/02/2010 REFUGIO BASKET MENDER, LIDIA A 692.9 Dermatitis Contact Unspecified 11/30/2010 [...] GARY 057.9 Viral Exanthem Unspecified 11/30/2010 REFUGIO BASKET MENDER, LIDIA A 057.9 Viral Exanthem Unspecified 11/30/2010 REFUGIO BASKET MENDER, LIDIA A 057.9 Viral Exanthem Unspecified 11/30/2010 REFUGIO BASKET MENDER, LIDIA A 057.9 Viral Exanthem Unspecified 11/30/2010 REFUGIO BASKET MENDER, LIDIA A 057.9 Viral Exanthem Unspecified 11/30/2010 REFUGIO BASKET MENDER, LIDIA A 057.9 Viral Exanthem Unspecified 11/30/2010 REFUGIO BASKET MENDER, LIDIA A 057.9 Viral Exanthem Unspecified 11/30/2010 AZAEL BECKER, RAYMUNDO 057.9 Viral Exanthem Unspecified 11/30/2010 LUEVANO DO, MIKE K 057.9 Viral Exanthem Unspecified 11/30/2010 REFUGIO BASKET MENDER, LIDIA A 057.9 Viral Exanthem Unspecified 11/30/2010 LUEVANO DO, MIKE K 057.9 Viral Exanthem Unspecified 11/30/2010 LUEVANO DO, MIKE K 057.9 Viral Exanthem Unspecified 11/30/2010 REFUGIO BASKET MENDER, LIDIA A 057.9 Viral Exanthem Unspecified 12/04/2010 [...] 053.9 Herpes Zoster Without Complication 12/04/2010 REFUGIO BASKET MENDER, LIDIA A 053.9 Herpes Zoster Without Complication 12/04/2010 REFUGIO BASKET MENDER, LIDIA A 053.9 Herpes Zoster Without Complication 12/04/2010 REFUGIO BASKET MENDER, LIDIA A 053.9 Herpes Zoster Without Complication 12/04/2010 REFUGIO BASKET MENDER, LIDIA A 053.9 Herpes Zoster Without Complication 12/04/2010 REFUGIO BASKET MENDER, LIDIA A 053.9 Herpes Zoster Without Complication 12/04/2010 REFUGIO BASKET MENDER, LIDIA A 053.9 Herpes Zoster Without Complication 12/04/2010 AZAEL BECKER, RAYMUNDO 053.9 Herpes Zoster Without Complication 12/04/2010 LUEVANO DO, MIKE K 053.9 Herpes Zoster Without Complication 12/04/2010 REFUGIO BASKET MENDER, LIDIA A 053.9 Herpes Zoster Without Complication 12/04/2010 LUEVANO DO, MIKE K 053.9 Herpes Zoster Without Complication 12/04/2010 LUEVANO DO, MIKE K 053.9 Herpes Zoster Without Complication 12/04/2010 REFUGIO BASKET MENDER, LIDIA A 053.9 Herpes Zoster Without Complication [...] And Abscess Of Unspecified Sites 01/16/2011 REFUGIO BASKET MENDER, LIDIA A 919.4 Insect Bite Nonvenomous Of Other Multiple And Unspecified Sites Without Infection 01/16/2011 REFUGIO MEDINA, LIDIA A 682.9 Cellulitis And Abscess Of Unspecified Sites 01/16/2011 REFUGIO MEDINA LIDIA A 919.4 Insect Bite Nonvenomous Of Other Multiple And Unspecified Sites Without Infection 01/16/2011 REFUGIO BASKET MENDER, LIDIA A 682.9 Cellulitis And Abscess Of Unspecified Sites 01/16/2011 REFUGIO BASKET MENDER, LIDIA A 919.4 Insect Bite Nonvenomous Of Other Multiple And Unspecified Sites Without Infection 01/16/2011 REFUGIO BASKET MENDER, LIDIA A 682.9 Cellulitis And Abscess Of Unspecified Sites 01/16/2011 REFUGIO BASKET MENDER, LIDIA A 919.4 Insect Bite Nonvenomous Of Other Multiple And Unspecified Sites Without Infection 01/16/2011 REFUGIO BASKET MENDER, LIDIA A 682.9 Cellulitis And Abscess Of Unspecified Sites 01/16/2011 REFUGIO BASKET MENDER, LIDIA A 919.4 Insect Bite Nonvenomous Of [...] And Abscess Of Unspecified Sites 01/16/2011 REFUGIO BASKET MENDER, LIDIA A 919.4 Insect Bite Nonvenomous Of Other Multiple And Unspecified Sites Without Infection 04/09/2011 626.8 DUB 04/09/2011 626.8 Dub 04/09/2011 626.8 Dub 04/09/2011 626.8 Dub 04/09/2011 GARY RENO MD 626.8 Dub 04/09/2011 626.8 Dub 04/09/2011 LUEVANO DO, MIKE K 626.8 Dub 04/09/2011 626.8 Dub 04/09/2011 626.8 Dub 04/09/2011 626.8 Dub 04/09/2011 GARY RENO MD 626.8 Dub 04/09/2011 REFUGIO BASKET MENDER, LIDIA A 626.8 Dub 04/09/2011 REFUGIO BASKET MENDER, LIDIA A 626.8 Dub 04/09/2011 REFUGIO BASKET MENDER, LIDIA A 626.8 Dub 04/09/2011 REFUGIO BASKET MENDER, LIDIA A 626.8 Dub 04/09/2011 REFUGIO BASKET MENDER, LIDIA A 626.8 Dub 04/09/2011 REFUGIO BASKET MENDER, LIDIA A 626.8 Dub 04/09/2011 AZAEL BECKER, RAYMUNDO 626.8 Dub 04/09/2011 LUEVANO DO, MIKE K 626.8 Dub 04/09/2011 REFUGIO BASKET MENDER, LIDIA A 626.8 Dub 04/09/2011 LUEVANO DO, MIKE K 626.8 Dub 04/09/2011 LUEVANO DO, MIKE K 626.8 Dub 04/09/2011 REFUGIO BASKET MENDER, LIDIA A 626.8 Dub 04/23/2011 599.0 URINARY [...] 789.00 Abdominal Pain Unspecified Site 04/23/2011 REFUGIO BASKET MENDER, LIDIA A 599.0 Urinary Tract Infection 04/23/2011 REFUGIO BASKET MENDER, LIDIA A 789.00 Abdominal Pain Unspecified Site 04/23/2011 REFUGIO BASKET MENDER, LIDIA A 599.0 Urinary Tract Infection 04/23/2011 REFUGIO BASKET MENDER, LIDIA A 789.00 Abdominal Pain Unspecified Site 04/23/2011 REFUGIO BASKET MENDER, LIDIA A 599.0 Urinary Tract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 BLEEDING ABD PAIN/ VOMITING [id number] 08/06/2013 23:01:00 08/07/2013 01:57:00 DIS Emergency RADHA BINGHAM MD [facility] ER BLOOD IN URINE [id number] 08/06/2013 01:32:00 08/06/2013 04:31:00 DIS Emergency RAMANDEEP CRYSTAL MD [facility] ER ABD PAIN [id number] 06/28/2013 18:11:00 06/28/2013 20:38:00 DIS Emergency OLEGARIO BENNETT [facility] ER ABD PAIN [id number] 06/13/2013 15:55:00 06/13/2013 17:28:00 DIS Emergency LOBITO MEDINA BASKET MENDER Via [facility] ER VOMITING [id number] 05/06/2013 22:09:00 05/06/2013 22:53:00 DIS Emergency LOBITO MEDINA APRN [facility] ER ALLERGIC REACTION [id number] 04/04/2013 01:23:00 04/04/2013 02:59:00 DIS Emergency OLIVE MCBRIDE MD Via [facility] ER NAUSEA,VOMITING [id number] 09/09/2014 22:17:00 Document Registration [id number] 08/30/2011 22:00:00 Document Registration [id number] 06/21/2010 07:58:00 Document Registration [id number] 01/14/2018 11:20:00 01/14/2018 23:59:59 [facility] YOBANY [facility] [id number] 12/26/2017 14:00:00 Document Registration [id number] 11/13/2017 13:00:00 Document Registration [id number] 09/20/2017 08:00:00 Document Registration [id number] 09/19/2017 08:40:00 Document Registration [id number] 03/18/2017 16:40:00 Document Registration [id number] 02/11/2017 15:00:00 Document Registration [id number] 03/22/2017 18:09:00 Document Registration
[2018-06-29] MEDS ORDERED: LACTATED RINGERS 1,000 ML IV ONE (14:38)
[2018-06-29] MEDS ORDERED: ONDANSETRON 4 MG/2 ML (SDV) Z0FRAN IVP ONE (14:45)
[2018-06-29 14:51] LABS: BASOPHILS % (AUTO) 0 % (0-10); EOSINOPHILS # (AUTO) 0.3 10^3/uL (0.0-0.3); EOSINOPHILS % (AUTO) 3 % (0-10); HEMATOCRIT 45 % (35-52); HEMOGLOBIN 15.2 G/DL (11.5-16.0); LYMPHOCYTES # (AUTO) 2.3 X 10^3 (1.0-4.0); LYMPHOCYTES % (AUTO) 22 % (12-44); MEAN CORPUSCULAR HEMOGLOBIN 31 PG (25-34); MEAN CORPUSCULAR HGB CONC 34 G/DL (32-36); MEAN CORPUSCULAR VOLUME 92 FL (80-99); MEAN PLATELET VOLUME 10.7 FL (7.4-10.4); MONOCYTES # (AUTO) 0.9 X 10^3 (0.0-1.0); MONOCYTES % (AUTO) 9 % (0-12); NEUTROPHILS # (AUTO) 6.9 X 10^3 (1.8-7.8); NEUTROPHILS % (AUTO) 66 % (42-75); PLATELET COUNT 231 10^3/uL (130-400); RED BLOOD COUNT 4.89 10^6/uL (4.35-5.85); RED CELL DISTRIBUTION WIDTH 12.8 % (10.0-14.5); WHITE BLOOD COUNT 10.5 10^3/uL (4.3-11.0)
[2018-06-29 14:51] LABS: BILIRUBIN,URINE NEGATIVE (NEGATIVE); CLARITY,URINE SLIGHTLY CLOUDY; COLOR,URINE YELLOW; GLUCOSE, URINE (UA) NEGATIVE (NEGATIVE); KETONES,URINE NEGATIVE (NEGATIVE); LEUKOCYTE ESTERASE ,URINE NEGATIVE (NEGATIVE); NITRITE,URINE NEGATIVE (NEGATIVE); PH,URINE 6.5 (5-9); PROTEIN,URINE NEGATIVE (NEGATIVE); UROBILINOGEN,URINE NORMAL (NORMAL)
--- NOTE | 2018-06-29 14:57 | ED General ---
General Chief Complaint: Abdominal/GI Problems Stated Complaint: BRONCHITIS/VOMITING Source of Information: Patient Allergies and Home Medications Allergies Coded Allergies: No Known Drug Allergies (Unverified , 08/30/11) Home Medications Azithromycin 250 Mg Tablet, 250 MG PO UD TAKE 2 TABLETS ON DAY ONE THEN TAKE 1 TABLET DAILY FOR FOUR MORE DAYS Prescribed by: LOBITO MEDINA on 04/24/18 1147 D-Methorphan Hb/P-Epd HCl/Bpm 118 Ml Syrup, 5 ML PO Q6H PRN for CONGESTION Prescribed by: LOBITO MEDINA on 04/24/18 1152 Ondansetron 4 Mg Tab.rapdis, 4 MG PO Q6H PRN for NAUSEA/VOMITING Prescribed by: MEET LAI on 05/01/18 2214 Sulfamethoxazole/Trimethoprim 1 Each Tablet, 1 EACH PO BID Prescribed by: LOBITO MEDINA on 12/29/172155 Past Sqfyitm-Bmpmkw-Ejwezr Hx Patient Social History Type Used: Cigarettes 2nd Hand Smoke Exposure: Yes Recent Foreign Travel: No Contact w/Someone Who Travel: No Recent Hopitalizations: No Immunizations Up To Date Tetanus Booster (TDap): Unknown Date of Influenza Vaccine: Mar 30, 2013 Seasonal Allergies Seasonal Allergies: No Past Medical History Surgeries: Yes Abdominal, Adenoidectomy, Tonsillectomy Respiratory: No Cardiac: No Neurological: No Reproductive Disorders: No Female Reproductive Disorders: Menstrual Problems, Ovarian Cyst Sexually Transmitted Disease: Yes (Trichomonas and Chlamydia) HIV/AIDS: No Genitourinary: No Gastrointestinal: No Musculoskeletal: No Endocrine: No HEENT: No Cancer: No Psychosocial: Yes Anxiety, Bipolar, Depression Integumentary: No Blood Disorders: No Adverse Reaction/Blood Tranf: No Family Medical History No Pertinent Family Hx Physical Exam Vital Signs Vital Signs - First Documented 06/29/18 14:18 Temp 97.3 Pulse 94 Resp 11 B/P (MAP) 126/85 (99) Pulse Ox 98 O2 Delivery Room Air Capillary Refill : Height, Weight, BMI Height: 5'11.00" Weight: 155lbs. oz. 70.635279nu; 25.06 BMI Method:Stated Progress/Results/Core Measures Suspected Sepsis SIRS Temperature: Pulse: Respiratory Rate: Laboratory Tests 06/29/18 14:30: White Blood Count 10.5 Blood Pressure / Mean: Laboratory Tests 06/29/18 14:30: Creatinine 0.72, Platelet Count 231, Total Bilirubin 0.5 Results/Orders Lab Results Laboratory Tests Test 06/29/18 14:20 06/29/18 14:30 Range/Units Urine Color YELLOW Urine Clarity SLIGHTLY CLOUDY Urine pH 6.5 5-9 Urine Specific [place] 1.010 L 1.016-1.022 Urine Protein NEGATIVE NEGATIVE Urine Glucose (UA) NEGATIVE NEGATIVE Urine Ketones NEGATIVE NEGATIVE Urine Nitrite NEGATIVE NEGATIVE Urine Bilirubin NEGATIVE NEGATIVE Urine Urobilinogen NORMAL NORMAL MG/DL Urine Leukocyte Esterase NEGATIVE NEGATIVE Urine RBC (Auto) NEGATIVE NEGATIVE Urine RBC NONE /HPF Urine WBC RARE /HPF Urine Squamous Epithelial Cells 10-25 H /HPF Urine Crystals NONE /LPF Urine Bacteria TRACE /HPF Urine Casts NONE /LPF Urine Mucus NEGATIVE /LPF Urine Culture Indicated NO Urine Opiates Screen NEGATIVE NEGATIVE Urine Oxycodone Screen NEGATIVE NEGATIVE Urine Methadone Screen NEGATIVE NEGATIVE Urine Propoxyphene Screen NEGATIVE NEGATIVE Urine Barbiturates Screen NEGATIVE NEGATIVE Ur Tricyclic Antidepressants Screen NEGATIVE NEGATIVE Urine Phencyclidine Screen NEGATIVE NEGATIVE Urine Amphetamines Screen NEGATIVE NEGATIVE Urine Methamphetamines Screen NEGATIVE NEGATIVE Urine Benzodiazepines Screen NEGATIVE NEGATIVE Urine Cocaine Screen NEGATIVE NEGATIVE Urine Cannabinoids Screen NEGATIVE NEGATIVE White Blood Count 10.5 4.3-11.0 10^3/uL Red Blood Count 4.89 4.35-5.85 10^6/uL Hemoglobin 15.2 11.5-16.0 G/DL Hematocrit 45 35-52 % Mean Corpuscular Volume 92 80-99 FL Mean Corpuscular Hemoglobin 31 25-34 PG Mean Corpuscular Hemoglobin Concent 34 32-36 G/DL Red Cell Distribution Width 12.8 10.0-14.5 % Platelet Count 231 130-400 10^3/uL Mean Platelet Volume 10.7 H 7.4-10.4 FL Neutrophils (%) (Auto) 66 42-75 % Lymphocytes (%) (Auto) 22 12-44 % Monocytes (%) (Auto) 9 0-12 % Eosinophils (%) (Auto) 3 0-10 % Basophils (%) (Auto) 0 0-10 % Neutrophils # (Auto) 6.9 1.8-7.8 X 10^3 Lymphocytes # (Auto) 2.3 1.0-4.0 X 10^3 Monocytes # (Auto) 0.9 0.0-1.0 X 10^3 Eosinophils # (Auto) 0.3 0.0-0.3 10^3/uL Basophils # (Auto) 0.0 0.0-0.1 10^3/uL Sodium Level 140 135-145 MMOL/L Potassium Level 4.0 3.6-5.0 MMOL/L Chloride Level 109 H 98-107 MMOL/L Carbon Dioxide Level 20 L 21-32 MMOL/L Anion Gap 11 5-14 MMOL/L Blood Urea Nitrogen 11 7-18 MG/DL Creatinine 0.72 0.60-1.30 MG/DL Estimat Glomerular Filtration Rate > 60 BUN/Creatinine Ratio 15 Glucose Level 67 L 70-105 MG/DL Calcium Level 9.4 8.5-10.1 MG/DL Corrected Calcium 8.5-10.1 MG/DL Total Bilirubin 0.5 0.1-1.0 MG/DL Aspartate Amino Transf (AST/SGOT) 15 5-34 U/L Alanine Aminotransferase (ALT/SGPT) 15 0-55 U/L Alkaline Phosphatase 47 40-136 U/L Total Protein 8.0 6.4-8.2 GM/DL Albumin 4.9 H 3.2-4.5 GM/DL Amylase Level 43 25-125 U/L Lipase 24 8-78 U/L Serum Alcohol < 10 <10 MG/DL My Orders Orders - CHAO PERDUE DO Saline Lock/Iv-Start (06/29/18 14:38) Urine Bedside (06/29/18 14:38) Monitor-Rhythm Ecg Trace Only (06/29/18 14:38) Alcohol (06/29/18 14:38) Amylase (06/29/18 14:38) Cbc With Automated Diff (06/29/18 14:38) Comprehensive Metabolic Panel (06/29/18 14:38) Drug Screen Stat (Urine) (06/29/18 14:38) Lipase (06/29/18 14:38) Ua Culture If Indicated (06/29/18 14:38) Saline Lock/Iv-Start (06/29/18 14:38) Lactated Ringers (Lr 1000 Ml Iv Solution (06/29/18 14:38) Ondansetron Injection (Zofran Injectio (06/29/18 14:45) Chest Pa/Lat (2 View) (06/29/18 15:09) Medications Given in ED Current Medications Medications Dose Ordered Sig/Rachele Route Start Time Stop Time Status Last Admin Dose Admin Lactated Ringer's 1,000 ml @ 0 mls/hr Q0M ONCE IV 06/29/18 14:38 06/29/18 14:46 DC 06/29/18 15:01 1,000 MLS/HR Ondansetron HCl 4 mg ONCE ONCE IVP 06/29/18 14:45 06/29/18 14:46 DC 06/29/18 15:01 4 MG Vital Signs/I&O 06/29/18 14:18 Temp 97.3 Pulse 94 Resp 11 B/P (MAP) 126/85 (99) Pulse Ox 98 O2 Delivery Room Air Capillary Refill : Progress Note : Progress Note NO COUGH, NO VOMITING OR DIARRHEA AT ANY TIME DURING ER STAY Diagnostic Imaging Comments CXR--no acute process, per radiologist report @ 1555 Departure Impression Primary Impression: Acute bronchitis Additional Impression: Gastroenteritis Disposition: HOME, SELF-CARE Condition: Improved Departure-Patient Inst. Referrals: [facility] (PCP/Family) Primary Care Physician Patient Instructions: Acute Bronchitis, Adult (DC), Viral Gastroenteritis, Adult (DC) Add. Discharge Instructions: CONTINUE YOUR MEDICATIONS PRESCRIBED BY [facility] TYLENOL AND MOTRIN NEEDED FOR PAIN OR FEVER CLEAR LIQUIDS--WATER, BROTH, JELLO, GATORADE TOMORROW IF YOU ARE BETTER, ADD BRATS DIET TO CLEAR LIQUIDS--BANANAS, RICE, APPLSAUCE, TOAST, SALTINES FOLLOW UP WITH [facility] IN 3-4 DAYS IF NO BETTER All discharge instructions reviewed with patient and/or family. Voiced understanding. Scripts Ondansetron (Ondansetron Odt) 4 Mg Tab.rapdis 4 MG PO Q4H for Nausea/Vomiting, #10 TAB Prov: CHAO PERDUE DO 06/29/18 CHAO PERDUE DO Jun 29, 2018 14:57
[2018-06-29 15:01] LABS: BACTERIA,URINE TRACE /HPF; WBC,URINE RARE /HPF
[2018-06-29 15:03] LABS: ALANINE AMINOTRANSFERASE 15 U/L (0-55); ALBUMIN 4.9 GM/DL (3.2-4.5); ALKALINE PHOSPHATASE 47 U/L (40-136); AMYLASE 43 U/L (25-125); BILIRUBIN,TOTAL 0.5 MG/DL (0.1-1.0); BUN/CREATININE RATIO 15; CALCIUM 9.4 MG/DL (8.5-10.1); CARBON DIOXIDE 20 MMOL/L (21-32); CHLORIDE 109 MMOL/L (98-107); CREATININE SERUM 0.72 MG/DL (0.60-1.30); GFR ESTIMATED > 60; GLUCOSE 67 MG/DL (70-105); LIPASE 24 U/L (8-78); SODIUM 140 MMOL/L (135-145)
[2018-06-29 15:05] LABS: AMPHETAMINE SCREEN, URINE NEGATIVE (NEGATIVE); BARBITURATE SCREEN URINE NEGATIVE (NEGATIVE); BENZODIAZEPINES SCREEN URINE NEGATIVE (NEGATIVE); CANNABINOID SCREEN, URINE NEGATIVE (NEGATIVE); COCAINE SCREEN URINE NEGATIVE (NEGATIVE); METHADONE STAT NEGATIVE (NEGATIVE); METHAMPHETAMINE SCREEN URINE S NEGATIVE (NEGATIVE); OPIATE SCREEN URINE NEGATIVE (NEGATIVE); OXYCODONE STAT NEGATIVE (NEGATIVE); PROPOXYPHENE STAT NEGATIVE (NEGATIVE); TRICYCLIC ANTIDEPRESSANTS SCRE NEGATIVE (NEGATIVE)
--- NOTE | 2018-06-29 15:25 | Diagnostic Imaging Report ---
EXAMINATION: Chest (PA and lateral). CLINICAL INDICATION: 23-year-old female, cough and congestion. COMPARISON: April 24, 2018. FINDINGS: Heart size and mediastinal contours are unremarkable. There is no identified pneumothorax. There is no pleural effusion. There is no identified focal airspace consolidation. There is a very small nodular opacity overlying the right lower lobe which is unchanged since comparison exam. IMPRESSION: No identified acute cardiopulmonary abnormality. Dictated by: Dictated on workstation # [id number]
[2018-06-29] MEDS ORDERED: ONDA4TAB11 PO (16:03)
[2018-06-29 16:18] VITALS: BP 129/88
== END 2018-06-29 16:19 | disposition home or self-care (01) ==
LOC: EDUNIT# 14:10 → ER 14:11
DX: J20.9 Acute bronchitis, unspecified (principal); K52.9 Noninfective gastroenteritis and colitis, unspecified; F41.9 Anxiety disorder, unspecified; F31.9 Bipolar disorder, unspecified; Z77.22 Contact with and (suspected) exposure to environmental tobacco smoke (acute) (chronic); Z90.89 Acquired absence of other organs; Z87.448 Personal history of other diseases of urinary system; Z86.19 Personal history of other infectious and parasitic diseases
CPT/HCPCS: 36415; 71046; 80053; 80306; 80320; 81000; 82150; 83690; 84703; 85025; 93041

== ENCOUNTER 2018-08-22 16:03 | Emergency (ER) | payer SELFPAY ==
[~2018-08-22] VITALS: Ht 175.3 cm; Wt 72.1 kg
--- OUTSIDE RECORDS SUMMARY | 2018-08-22 16:27 | XMS REPORT | Continuity of Care Document ---
Author Author [facility] [place] [facility] Address Unknown Phone Unavailable Allergies Active Description Code Type Severity Reaction Onset Reported/Identified Relationship to Patient Clinical Status Yes NO KNOWN DRUG ALLERGIES NO KNOWN DRUG ALLERG UNKNOWN Yes NO KNOWN DRUG ALLERGIES UNKNOWN NO KNOWN DRUG ALLERG Yes No Known Drug Allergies [id number] Drug Allergy Unknown N/A 08/30/2011 Medications Medication [...] GARY V58.69 MEDICATION HIGH RISK 02/23/2008 REFUGIO PICKING BELT OPERATOR, LIDIA A V03.89 Meningococcal, Other Specified Single Bacterial Disease 02/23/2008 REFUGIO PICKING BELT OPERATOR, LIDIA A V05.3 Hepatitis Viral/all 02/23/2008 REFUGIO PICKING BELT OPERATOR, LIDIA A V06.5 Dt, Tetanus-diphtheria [td] 02/23/2008 REFUGIO PICKING BELT OPERATOR, LIDIA A V20.2 WELL CHILD, ROUTINE 02/23/2008 REFUGIO PICKING BELT OPERATOR, LIDIA A V58.69 MEDICATION HIGH RISK 02/23/2008 REFUGIO PICKING BELT OPERATOR, LIDIA A V03.89 Meningococcal, Other Specified Single Bacterial Disease 02/23/2008 REFUGIO PICKING BELT OPERATOR, LIDIA A V05.3 Hepatitis Viral/all 02/23/2008 REFUGIO PICKING BELT OPERATOR, LIDIA A V06.5 Dt, Tetanus-diphtheria [td] 02/23/2008 REFUGIO PICKING BELT OPERATOR, LIDIA A V20.2 WELL CHILD, ROUTINE 02/23/2008 REFUGIO PICKING BELT OPERATOR, LIDIA A V58.69 MEDICATION HIGH RISK 02/23/2008 REFUGIO PICKING BELT OPERATOR, LIDIA A V03.89 Meningococcal, Other Specified Single Bacterial Disease 02/23/2008 REFUGIO PICKING BELT OPERATOR, LIDIA A V05.3 Hepatitis Viral/all 02/23/2008 REFUGIO PICKING BELT OPERATOR, LIDIA A V06.5 Dt, Tetanus-diphtheria [td] 02/23/2008 REFUGIO PICKING BELT OPERATOR, LIDIA A V20.2 WELL CHILD, ROUTINE 02/23/2008 REFUGIO PICKING BELT OPERATOR, LIDIA A V58.69 MEDICATION HIGH RISK 02/23/2008 REFUGIO PICKING BELT OPERATOR, LIDIA A V03.89 Meningococcal, Other Specified Single Bacterial Disease 02/23/2008 REFUGIO PICKING BELT OPERATOR, LIDIA A V05.3 Hepatitis Viral/all 02/23/2008 REFUGIO PICKING BELT OPERATOR, LIDIA A V06.5 Dt, Tetanus-diphtheria [td] 02/23/2008 REFUGIO PICKING BELT OPERATOR, LIDIA A V20.2 WELL CHILD, ROUTINE 02/23/2008 REFUGIO PICKING BELT OPERATOR, LIDIA A V58.69 MEDICATION HIGH RISK 02/23/2008 REFUGIO PICKING BELT OPERATOR, LIDIA A V03.89 Meningococcal, Other Specified Single Bacterial Disease 02/23/2008 REFUGIO PICKING BELT OPERATOR, LIDIA A V05.3 Hepatitis Viral/all 02/23/2008 REFUGIO PICKING BELT OPERATOR, LIDIA A V06.5 Dt, Tetanus-diphtheria [td] 02/23/2008 REFUGIO PICKING BELT OPERATOR, LIDIA A V20.2 WELL CHILD, ROUTINE 02/23/2008 REFUGIO TON, LIDIA A V58.69 MEDICATION HIGH RISK 02/23/2008 REFUGIO TON, LIDIA A V03.89 Meningococcal, Other Specified Single Bacterial Disease 02/23/2008 REFUGIO PICKING BELT OPERATOR, LIDIA A V05.3 Hepatitis Viral/all 02/23/2008 REFUGIO PICKING BELT OPERATOR, LIDIA A V06.5 Dt, Tetanus-diphtheria [td] 02/23/2008 [...] DO V58.69 MEDICATION HIGH RISK 02/23/2008 REFUGIO PICKING BELT OPERATOR, LIDIA A V03.89 Meningococcal, Other Specified Single Bacterial Disease 02/23/2008 REFUGIO PICKING BELT OPERATOR, LIDIA A V05.3 Hepatitis Viral/all 02/23/2008 REFUGIO PICKING BELT OPERATOR, LIDIA A V06.5 Dt, Tetanus-diphtheria [td] 02/23/2008 REFUGIO PICKING BELT OPERATOR, LIDIA A V20.2 WELL CHILD, ROUTINE 02/23/2008 REFUGIO PICKING BELT OPERATOR, LIDIA A V58.69 MEDICATION HIGH RISK 02/23/2008 [...] Vero V58.69 MEDICATION HIGH RISK 02/23/2008 REFUGIO PICKING BELT OPERATOR, LIDIA A V03.89 Meningococcal, Other Specified Single Bacterial Disease 02/23/2008 REFUGIO PICKING BELT OPERATOR, LIDIA A V05.3 Hepatitis Viral/all 02/23/2008 REFUGIO PICKING BELT OPERATOR, LIDIA A V06.5 Dt, Tetanus-diphtheria [td] 02/23/2008 REFUGIO PICKING BELT OPERATOR, LIDIA A V20.2 WELL CHILD, ROUTINE 02/23/2008 REFUGIO PICKING BELT OPERATOR, LIDIA A V58.69 MEDICATION HIGH RISK 04/30/2008 [...] MD 780.79 Malaise And Fatigue 04/30/2008 REFUGIO PICKING BELT OPERATOR, LIDIA A 780.60 Fever, Unspecified 04/30/2008 REFUGIOAdy MEDINA LIDIA A 780.79 Malaise And Fatigue 04/30/2008 REFUGIO MEDINA LIDIA A 780.60 Fever, Unspecified 04/30/2008 REFUGIO PICKING BELT OPERATOR, LIDIA A 780.79 Malaise And Fatigue 04/30/2008 REFUGIOJODIE MEDINA, LIDIA A 780.60 Fever, Unspecified 04/30/2008 REFUGIO PICKING BELT OPERATOR, LIDIA A 780.79 Malaise And Fatigue 04/30/2008 REFUGIO PICKING BELT OPERATOR, LIDIA A 780.60 Fever, Unspecified 04/30/2008 REFUGIO PICKING BELT OPERATOR, LIDIA A 780.79 Malaise And Fatigue 04/30/2008 REFUGIO PICKING BELT OPERATOR, LIDIA A 780.60 Fever, Unspecified 04/30/2008 REFUGIO PICKING BELT OPERATOR, LIDIA A 780.79 Malaise And Fatigue 04/30/2008 REFUGIO MEDINA, LIDIA A 780.60 Fever, Unspecified 04/30/2008 REFUGIO PICKING BELT OPERATOR, LIDIA A 780.79 Malaise And Fatigue 04/30/2008 AZAEL BECKER, RAYMUNDO 780.60 Fever, Unspecified 04/30/2008 AZAEL BECKER, RAYMUNDO 780.79 Malaise And Fatigue 04/30/2008 LUEVANO DO, MIKE K 780.60 Fever, Unspecified 04/30/2008 LUEVANO DO, MIKE K 780.79 Malaise And Fatigue 04/30/2008 REFUGIO PICKING BELT OPERATOR, LIDIA A 780.60 Fever, Unspecified 04/30/2008 REFUGIO PICKING BELT OPERATOR, LIDIA A 780.79 Malaise And Fatigue 04/30/2008 LUEVANO DO, MIKE K 780.60 Fever, Unspecified 04/30/2008 LUEVANO DO, MIKE K 780.79 Malaise And Fatigue 04/30/2008 LUEVANO DO, MIKE K 780.60 Fever, Unspecified 04/30/2008 LUEVANO DO, MIKE K 780.79 Malaise And Fatigue 04/30/2008 REFUGIO PICKING BELT OPERATOR, LIDIA A 780.60 Fever, Unspecified 04/30/2008 REFUGIO PICKING BELT OPERATOR, LIDIA A 780.79 Malaise And Fatigue 08/04/2008 [...] 382.4 Unspecified Suppurative Otitis Media 08/04/2008 REFUGIO PICKING BELT OPERATOR, LIDIA A 132.0 Pediculus Capitis (head Louse) 08/04/2008 REFUGIO PICKING BELT OPERATOR, LIDIA A 382.4 Unspecified Suppurative Otitis Media 08/04/2008 REFUGIO PICKING BELT OPERATOR, LIDIA A 132.0 Pediculus Capitis (head Louse) 08/04/2008 REFUGIO PICKING BELT OPERATOR, LIDIA A 382.4 Unspecified Suppurative Otitis Media 08/04/2008 REFUGIO PICKING BELT OPERATOR, LIDIA A 132.0 Pediculus Capitis (head Louse) 08/04/2008 REFUGIO PICKING BELT OPERATOR, LIDIA A 382.4 Unspecified Suppurative Otitis Media 08/04/2008 REFUGIO PICKING BELT OPERATOR, LIDIA A 132.0 Pediculus Capitis (head Louse) 08/04/2008 REFUGIO PICKING BELT OPERATOR, LIDIA A 382.4 Unspecified Suppurative Otitis Media 08/04/2008 REFUGIO PICKING BELT OPERATOR, LIDIA A 132.0 Pediculus Capitis (head Louse) 08/04/2008 REFUGIO PICKING BELT OPERATOR, LIDIA A 382.4 Unspecified Suppurative Otitis Media 08/04/2008 REFUGIO PICKING BELT OPERATOR, LIDIA A 132.0 Pediculus Capitis (head Louse) 08/04/2008 REFUGIO PICKING BELT OPERATOR, LIDIA A 382.4 Unspecified Suppurative Otitis Media 08/04/2008 AZAEL BECKER, RAYMUNDO 132.0 Pediculus Capitis (head Louse) 08/04/2008 AZAEL BECKER, RAYMUNDO 382.4 Unspecified Suppurative Otitis Media 08/04/2008 LUEVANO DO, MIKE K 132.0 Pediculus Capitis (head Louse) 08/04/2008 LUEVANO DO, MIKE K 382.4 Unspecified Suppurative Otitis Media 08/04/2008 REFUGIO PICKING BELT OPERATOR, LIDIA A 132.0 Pediculus Capitis (head Louse) 08/04/2008 REFUGIO PICKING BELT OPERATOR, LIDIA A 382.4 Unspecified Suppurative Otitis Media [...] MD 300.4 Mo Dysthymic Disorder 12/02/2008 REFUGIO PICKING BELT OPERATOR, LIDIA A 300.4 Mo Dysthymic Disorder 12/02/2008 REFUGIO TON, LIDIA A 300.4 Mo Dysthymic Disorder 12/02/2008 REFUGIO PICKING BELT OPERATOR, LIDIA A 300.4 Mo Dysthymic Disorder 12/02/2008 REFUGIO PICKING BELT OPERATOR, LIDIA A 300.4 Mo Dysthymic Disorder 12/02/2008 REFUGIO PICKING BELT OPERATOR, LIDIA A 300.4 Mo Dysthymic Disorder 12/02/2008 [...] Elsewhere And Of Unspecified Site 04/07/2009 REFUGIO PICKING BELT OPERATOR, LIDIA A 079.99 Unspecified Viral Infection In Conditions Classified Elsewhere And Of Unspecified Site 04/07/2009 REFUGIO PICKING BELT OPERATOR, LIDIA A 079.99 Unspecified Viral Infection In Conditions Classified Elsewhere And Of Unspecified Site 04/07/2009 REFUGIO PICKING BELT OPERATOR, LIDIA A 079.99 Unspecified Viral Infection In [...] LIDIA A 789.00 Abdominal Pain 05/02/2009 REFUGIO PICKING BELT OPERATOR, LIDIA A 789.00 Abdominal Pain 05/02/2009 RAYMUNDO ADDISON MD 789.00 Abdominal Pain 05/02/2009 CHLOÉ GARSIA, MIKE K 789.00 Abdominal Pain 05/02/2009 REFUGIO PICKING BELT OPERATOR, LIDIA A 789.00 Abdominal Pain 05/02/2009 CHLOÉ GARSIA, MIKE K 789.00 Abdominal Pain 05/02/2009 CHLOÉ GARSIA, MIKE K 789.00 Abdominal Pain 05/02/2009 REFUGIO PICKING BELT OPERATOR, LIDIA A 789.00 Abdominal Pain 06/02/2009 373.11 [...] A 373.11 Stye (hordeolum Externum) 06/02/2009 REFUGIO PICKING BELT OPERATOR, LIDIA A 682.9 Cellulitis 06/02/2009 REFUGIO PICKING BELT OPERATOR, LIDIA A 373.11 Stye (hordeolum Externum) 06/02/2009 REFUGIO PICKING BELT OPERATOR, LIDIA A 682.9 Cellulitis 06/02/2009 REFUGIO PICKING BELT OPERATOR, LIDIA A 373.11 Stye (hordeolum Externum) 06/02/2009 REFUGIO PICKING BELT OPERATOR, LIDIA A 682.9 Cellulitis 06/02/2009 REFUGIO PICKING BELT OPERATOR, LIDIA A 373.11 Stye (hordeolum Externum) 06/02/2009 REFUGIO PICKING BELT OPERATOR, LIDIA A 682.9 Cellulitis 06/02/2009 REFUGIO PICKING BELT OPERATOR, LIDIA A 373.11 Stye (hordeolum Externum) 06/02/2009 REFUGIO PICKING BELT OPERATOR, LIDIA A 682.9 Cellulitis 06/02/2009 REFUGOI PICKING BELT OPERATOR, LIDIA A 373.11 Stye (hordeolum Externum) 06/02/2009 REFUGIO PICKING BELT OPERATOR, LIDIA A 682.9 Cellulitis 06/02/2009 AZAEL BECKER, RAYMUNDO 373.11 Stye (hordeolum Externum) 06/02/2009 RAYMUNDO ADDISON MD 682.9 Cellulitis 06/02/2009 SHAWN LUEVANO DOA K 373.11 Stye (hordeolum Externum) 06/02/2009 LUEVANO DOSHAWNA K 682.9 Cellulitis 06/02/2009 REFUGIO PICKING BELT OPERATOR, LIDIA A 373.11 Stye (hordeolum Externum) 06/02/2009 REFUGIO PICKING BELT OPERATOR, LIDIA A 682.9 Cellulitis 06/02/2009 LUEVANO DO MIKE K 373.11 Stye (hordeolum Externum) 06/02/2009 LUEVANO DO MIKE K 682.9 Cellulitis 06/02/2009 LUEVANO DO, MIKE K 373.11 Stye (hordeolum Externum) 06/02/2009 LUEVANO DO MIKE K 682.9 Cellulitis 06/02/2009 REFUGIO PICKING BELT OPERATOR, LIDIA A 373.11 Stye (hordeolum Externum) 06/02/2009 REFUGIO PICKING BELT OPERATOR, LIDIA A 682.9 Cellulitis 08/18/2009 307.20 TIC [...] MD 781.0 Abnormal Involuntary Movements 08/18/2009 REFUGIO PICKING BELT OPERATOR, LIDIA A 307.20 TIC DISORDER 08/18/2009 REFUGIO PICKING BELT OPERATOR, LIDIA A 781.0 Abnormal Involuntary Movements 08/18/2009 REFUGIO PICKING BELT OPERATOR, LIDIA A 307.20 TIC DISORDER 08/18/2009 REFUGIO PICKING BELT OPERATOR, LIDIA A 781.0 Abnormal Involuntary Movements 08/18/2009 REFUGIO PICKING BELT OPERATOR, LIDIA A 307.20 TIC DISORDER 08/18/2009 REFUGIO PICKING BELT OPERATOR, LIDIA A 781.0 Abnormal Involuntary Movements 08/18/2009 REFUGIO PICKING BELT OPERATOR, LIDIA A 307.20 TIC DISORDER 08/18/2009 REFUGIO PICKING BELT OPERATOR, LIDIA A 781.0 Abnormal Involuntary Movements 08/18/2009 REFUGIO PICKING BELT OPERATOR, LIDIA A 307.20 TIC DISORDER 08/18/2009 REFUGIO PICKING BELT OPERATOR, LIDIA A 781.0 Abnormal Involuntary Movements 08/18/2009 REFUGIO PICKING BELT OPERATOR, LIDIA A 307.20 TIC DISORDER 08/18/2009 REFUGIO PICKING BELT OPERATOR, LIDIA A 781.0 Abnormal Involuntary Movements 08/18/2009 RAYMUNDO ADDISON MD 307.20 TIC DISORDER 08/18/2009 RAYMUNDO ADDISON MD 781.0 Abnormal Involuntary Movements 08/18/2009 LUEVANO DO, MIKE K 307.20 TIC DISORDER 08/18/2009 LUEVANO DO, MIKE K 781.0 Abnormal Involuntary Movements 08/18/2009 REFUGIO PICKING BELT OPERATOR, LIDIA A 307.20 TIC DISORDER 08/18/2009 REFUGIO PICKING BELT OPERATOR, LIDIA A 781.0 Abnormal Involuntary Movements 08/18/2009 LUEVANO DO, MIKE K 307.20 TIC DISORDER 08/18/2009 LUEVANO DO, MIKE K 781.0 Abnormal Involuntary Movements 08/18/2009 LUEVANO DO, MIKE K 307.20 TIC DISORDER 08/18/2009 LUEVANO DO, MIKE K 781.0 Abnormal Involuntary Movements 08/18/2009 REFUGIO APRN, LIDIA A 307.20 TIC DISORDER 08/18/2009 REFUGIO PICKING BELT OPERATOR, LIDIA A 781.0 Abnormal Involuntary Movements 10/05/2009 [...] Respiratory Infections Of Unspecified Site 10/05/2009 REFUGIO PICKING BELT OPERATOR, LIDIA A 465.9 Acute Upper Respiratory Infections Of Unspecified Site 10/05/2009 REFUGIO PICKING BELT OPERATOR, LIDIA A 465.9 Acute Upper Respiratory Infections Of Unspecified Site 10/05/2009 REFUGIO PICKING BELT OPERATOR, LIDIA A 465.9 Acute Upper Respiratory Infections Of Unspecified Site 10/05/2009 REFUGIO PICKING BELT OPERATOR, LIDIA A 465.9 Acute Upper Respiratory Infections Of Unspecified Site 10/05/2009 RAYMUNDO ADDISON MD 465.9 Acute Upper Respiratory Infections Of Unspecified Site 10/05/2009 LUEVANO DOMIKE K 465.9 Acute Upper Respiratory Infections Of Unspecified Site 10/05/2009 REFUGIO PICKING BELT OPERATOR, LIDIA A 465.9 Acute Upper Respiratory Infections Of Unspecified Site 10/05/2009 LUEVANO DO, MIKE K 465.9 Acute Upper Respiratory Infections Of Unspecified Site 10/05/2009 LUEVANO DO, MIKE K 465.9 Acute Upper Respiratory Infections Of Unspecified Site 10/05/2009 REFUGIO PICKING BELT OPERATOR, LIDIA A 465.9 Acute Upper Respiratory Infections Of Unspecified Site 10/06/2009 477.9 RHINITIS 10/06/2009 477.9 RHINITIS 10/06/2009 477.9 RHINITIS 10/06/2009 477.9 RHINITIS 10/06/2009 GARY RENO MD 477.9 RHINITIS 10/06/2009 477.9 RHINITIS 10/06/2009 MIKE LUEVANO DO 477.9 RHINITIS 10/06/2009 477.9 RHINITIS 10/06/2009 477.9 RHINITIS 10/06/2009 477.9 RHINITIS 10/06/2009 GARY RENO MD 477.9 RHINITIS 10/06/2009 REFUGIO PICKING BELT OPERATOR, LDIIA A 477.9 RHINITIS 10/06/2009 REFUGIO PICKING BELT OPERATOR, LIDIA A 477.9 RHINITIS 10/06/2009 REFUGIO PICKING BELT OPERATOR, LIDIA A 477.9 RHINITIS 10/06/2009 REFUGIO PICKING BELT OPERATOR, LIDIA A 477.9 RHINITIS 10/06/2009 REFUIGO PICKING BELT OPERATOR, LIDIA A 477.9 RHINITIS 10/06/2009 REFUGIO PICKING BELT OPERATOR, ILDIA A 477.9 RHINITIS 10/06/2009 AZAEL MD, RAYMUNDO 477.9 RHINITIS 10/06/2009 LUEVANO DO, MIKE K 477.9 RHINITIS 10/06/2009 REFUGIO PICKING BELT OPERATOR, LIDIA A 477.9 RHINITIS 10/06/2009 LUEVANO DO, MIKE K 477.9 RHINITIS 10/06/2009 LUEVANO DO, MIKE K 477.9 RHINITIS 10/06/2009 REFUGIO PICKING BELT OPERATOR, LIDIA A 477.9 RHINITIS 10/20/2009 314.01 ADHD COMBINED 10/20/2009 314.01 ADHD COMBINED 10/20/2009 314.01 ADHD COMBINED 10/20/2009 314.01 ADHD COMBINED 10/20/2009 SHADIA BECKER, GARY 314.01 ADHD COMBINED 10/20/2009 314.01 ADHD COMBINED 10/20/2009 LUEVANO DO, MIKE K 314.01 ADHD COMBINED 10/20/2009 314.01 ADHD COMBINED 10/20/2009 314.01 ADHD COMBINED 10/20/2009 314.01 ADHD COMBINED 10/20/2009 SHADIA BECKER, GARY 314.01 ADHD COMBINED 10/20/2009 REFUGIO PICKING BELT OPERATOR, LIDIA A 314.01 ADHD COMBINED 10/20/2009 REFUGIO PICKING BELT OPERATOR, LIDIA A 314.01 ADHD COMBINED 10/20/2009 REFUGIO PICKING BELT OPERATOR, LIDIA A 314.01 ADHD COMBINED 10/20/2009 REFUGIO PICKING BELT OPERATOR, LIDIA A 314.01 ADHD COMBINED 10/20/2009 REFUGIO PICKING BELT OPERATOR, LIDIA A 314.01 ADHD COMBINED 10/20/2009 REFUGIO PICKING BELT OPERATOR, LIDIA A 314.01 ADHD COMBINED 10/20/2009 AZAEL BECKER, RAYMUNDO 314.01 ADHD COMBINED 10/20/2009 LUEVANO DO, MIKE K 314.01 ADHD COMBINED 10/20/2009 REFUGIO PICKING BELT OPERATOR, LIDIA A 314.01 ADHD COMBINED 10/20/2009 LUEVANO DO, MIKE K 314.01 ADHD COMBINED 10/20/2009 LUEVANO DO, MIKE K 314.01 ADHD COMBINED 10/20/2009 REFUGIO PICKING BELT OPERATOR, LIDIA A 314.01 ADHD COMBINED 11/24/2009 443.0 RAYNAUD'S SYNDROME 11/24/2009 443.0 RAYNAUD'S SYNDROME 11/24/2009 443.0 RAYNAUD'S SYNDROME 11/24/2009 443.0 RAYNAUD'S SYNDROME 11/24/2009 GARY RENO MD 443.0 RAYNAUD'S SYNDROME 11/24/2009 443.0 RAYNAUD'S SYNDROME 11/24/2009 MIKE LUEVANO DO K 443.0 RAYNAUD'S SYNDROME 11/24/2009 443.0 RAYNAUD'S SYNDROME 11/24/2009 443.0 RAYNAUD'S SYNDROME 11/24/2009 443.0 RAYNAUD'S SYNDROME 11/24/2009 GARY RENO MD 443.0 RAYNAUD'S SYNDROME 11/24/2009 REFUGIO PICKING BELT OPERATOR, LIDIA A 443.0 RAYNAUD'S SYNDROME 11/24/2009 REFUGIO PICKING BELT OPERATOR, LIDIA A 443.0 RAYNAUD'S SYNDROME 11/24/2009 REFUGIO PICKING BELT OPERATOR, LIDIA A 443.0 RAYNAUD'S SYNDROME 11/24/2009 REFUGIO PICKING BELT OPERATOR, LIDIA A 443.0 RAYNAUD'S SYNDROME 11/24/2009 REFUGIO MEDINA, LIDIA A 443.0 RAYNAUD'S SYNDROME 11/24/2009 REFUGIO PICKING BELT OPERATOR, LIDIA A 443.0 RAYNAUD'S SYNDROME 11/24/2009 RAYMUNDO [...] GARY 599.0 Urinary Tract Infection 04/13/2010 REFUGIO PICKING BELT OPERATOR, LIDIA A 599.0 Urinary Tract Infection 04/13/2010 REFUGIO PICKING BELT OPERATOR, LIDIA A 599.0 Urinary Tract Infection 04/13/2010 REFUGIO PICKING BELT OPERATOR, LIDIA A 599.0 Urinary Tract Infection 04/13/2010 REFUGIO PICKING BELT OPERATOR, LIDIA A 599.0 Urinary Tract Infection 04/13/2010 REFUGIO PICKING BELT OPERATOR, LIDIA A 599.0 Urinary Tract Infection 04/13/2010 REFUGIO PICKING BELT OPERATOR, LIDIA A 599.0 Urinary Tract Infection 04/13/2010 AZAEL BECKER, RAYMUNDO 599.0 Urinary Tract Infection 04/13/2010 LUEVANO DO, MIKE K 599.0 Urinary Tract Infection 04/13/2010 REFUGIO PICKING BELT OPERATOR, LIDIA A 599.0 Urinary Tract Infection 04/13/2010 LUEVANO DO, MIKE K 599.0 Urinary Tract Infection 04/13/2010 LUEVANO DO, MIKE K 599.0 Urinary Tract Infection 04/13/2010 REFUGIO PICKING BELT OPERATOR, LIDIA A 599.0 Urinary Tract Infection 06/05/2010 110.5 Tinea Corporis 06/05/2010 110.5 Tinea Corporis 06/05/2010 110.5 Tinea Corporis 06/05/2010 110.5 Tinea Corporis 06/05/2010 GARY RENO MD 110.5 Tinea Corporis 06/05/2010 110.5 Tinea Corporis 06/05/2010 LUEVANO DO, MIKE K 110.5 Tinea Corporis 06/05/2010 110.5 Tinea Corporis 06/05/2010 110.5 Tinea Corporis 06/05/2010 110.5 Tinea Corporis 06/05/2010 GARY RENO MD 110.5 Tinea Corporis 06/05/2010 REFUGIO PICKING BELT OPERATOR, LIDIA A 110.5 Tinea Corporis 06/05/2010 REFUGIO PICKING BELT OPERATOR, LIDIA A 110.5 Tinea Corporis 06/05/2010 REFUGIO PICKING BELT OPERATOR, LIDIA A 110.5 Tinea Corporis 06/05/2010 REFUGIO PICKING BELT OPERATOR, LIDIA A 110.5 Tinea Corporis 06/05/2010 REFUGIO PICKING BELT OPERATOR, LIDIA A 110.5 Tinea Corporis 06/05/2010 REFUGIO PICKING BELT OPERATOR, LIDIA A 110.5 Tinea Corporis 06/05/2010 AZAEL BECKER, RAYMUNDO 110.5 Tinea Corporis 06/05/2010 LUEVANO DO, MIKE K 110.5 Tinea Corporis 06/05/2010 REFUGIO PICKING BELT OPERATOR, LIDIA A 110.5 Tinea Corporis 06/05/2010 LUEVANO DO, MIKE K 110.5 Tinea Corporis 06/05/2010 LUEVANO DO, MIKE K 110.5 Tinea Corporis 06/05/2010 REFUGIO PICKING BELT OPERATOR, LIDIA A 110.5 Tinea Corporis 08/07/2010 461.9 Sinusitis Acute 08/07/2010 461.9 Sinusitis Acute 08/07/2010 461.9 Sinusitis Acute 08/07/2010 461.9 Sinusitis Acute 08/07/2010 GARY RENO MD 461.9 Sinusitis Acute 08/07/2010 461.9 Sinusitis Acute 08/07/2010 MIKE LUEVANO DO K 461.9 Sinusitis Acute 08/07/2010 461.9 Sinusitis Acute 08/07/2010 461.9 Sinusitis Acute 08/07/2010 461.9 Sinusitis Acute 08/07/2010 GARY RENO MD 461.9 Sinusitis Acute 08/07/2010 REFUGIO PICKING BELT OPERATOR, LIDIA A 461.9 Sinusitis Acute 08/07/2010 REFUGIO PICKING BELT OPERATOR, LIDIA A 461.9 Sinusitis Acute 08/07/2010 REFUGIO PICKING BELT OPERATOR, LIDIA A 461.9 Sinusitis Acute 08/07/2010 REFUGIO PICKING BELT OPERATOR, LIDIA A 461.9 Sinusitis Acute 08/07/2010 REFUGIO PICKING BELT OPERATOR, LIDIA A 461.9 Sinusitis Acute 08/07/2010 REFUGIO PICKING BELT OPERATOR, LIDIA A 461.9 Sinusitis Acute 08/07/2010 AZAEL BECKER, RAYMUNDO 461.9 Sinusitis Acute 08/07/2010 LEUVANO SHAWN GARSIAA K 461.9 Sinusitis Acute 08/07/2010 REFUGIO PICKING BELT OPERATOR, LIDIA A 461.9 Sinusitis Acute 08/07/2010 LUEVANO DO, MIKE K 461.9 Sinusitis Acute 08/07/2010 LUEVANO DO, MIKE K 461.9 Sinusitis Acute 08/07/2010 REFUGIO PICKING BELT OPERATOR, LIDIA A 461.9 Sinusitis Acute 10/02/2010 692.9 [...] MD 692.9 Dermatitis Contact Unspecified 10/02/2010 REFUGIO PICKING BELT OPERATOR, LIDIA A 692.9 Dermatitis Contact Unspecified 10/02/2010 REFUGIO PICKING BELT OPERATOR, LIDIA A 692.9 Dermatitis Contact Unspecified 10/02/2010 REFUGIO PICKING BELT OPERATOR, LIDIA A 692.9 Dermatitis Contact Unspecified 10/02/2010 REFUGIO PICKING BELT OPERATOR, LIDIA A 692.9 Dermatitis Contact Unspecified 10/02/2010 REFGUIO PICKING BELT OPERATOR, LIDIA A 692.9 Dermatitis Contact Unspecified 10/02/2010 REFUGIO PICKING BELT OPERATOR, LIDIA A 692.9 Dermatitis Contact Unspecified 10/02/2010 RAYMUNDO ADDISON MD 692.9 Dermatitis Contact Unspecified 10/02/2010 LUEVANO DO, MIKE K 692.9 Dermatitis Contact Unspecified 10/02/2010 REFUGIO PICKING BELT OPERATOR, LIDIA A 692.9 Dermatitis Contact Unspecified 10/02/2010 LUEVANO DO, MIKE K 692.9 Dermatitis Contact Unspecified 10/02/2010 LUEVANO DO, MIKE K 692.9 Dermatitis Contact Unspecified 10/02/2010 REFUGIO PICKING BELT OPERATOR, LIDIA A 692.9 Dermatitis Contact Unspecified 11/30/2010 [...] GARY 057.9 Viral Exanthem Unspecified 11/30/2010 REFUGIO PICKING BELT OPERATOR, LIDIA A 057.9 Viral Exanthem Unspecified 11/30/2010 REFUGIO PICKING BELT OPERATOR, LIDIA A 057.9 Viral Exanthem Unspecified 11/30/2010 REFUGIO PICKING BELT OPERATOR, LIDIA A 057.9 Viral Exanthem Unspecified 11/30/2010 REFUGIO PICKING BELT OPERATOR, LIDIA A 057.9 Viral Exanthem Unspecified 11/30/2010 REFUGIO PICKING BELT OPERATOR, LIDIA A 057.9 Viral Exanthem Unspecified 11/30/2010 REFUGIO PICKING BELT OPERATOR, LIDIA A 057.9 Viral Exanthem Unspecified 11/30/2010 AZAEL BECKER, RAYMUNDO 057.9 Viral Exanthem Unspecified 11/30/2010 LUEVANO DO, MIKE K 057.9 Viral Exanthem Unspecified 11/30/2010 REFUGIO PICKING BELT OPERATOR, LIDIA A 057.9 Viral Exanthem Unspecified 11/30/2010 LUEVANO DO, MIKE K 057.9 Viral Exanthem Unspecified 11/30/2010 LUEVANO DO, MIKE K 057.9 Viral Exanthem Unspecified 11/30/2010 REFUGIO PICKING BELT OPERATOR, LIDIA A 057.9 Viral Exanthem Unspecified 12/04/2010 [...] 053.9 Herpes Zoster Without Complication 12/04/2010 REFUGIO PICKING BELT OPERATOR, LIDIA A 053.9 Herpes Zoster Without Complication 12/04/2010 REFUGIO PICKING BELT OPERATOR, LIDIA A 053.9 Herpes Zoster Without Complication 12/04/2010 REFUGIO PICKING BELT OPERATOR, LIDIA A 053.9 Herpes Zoster Without Complication 12/04/2010 REFUGIO PICKING BELT OPERATOR, LIDIA A 053.9 Herpes Zoster Without Complication 12/04/2010 REFUGIO PICKING BELT OPERATOR, LIDIA A 053.9 Herpes Zoster Without Complication 12/04/2010 REFUGIO PICKING BELT OPERATOR, LIDIA A 053.9 Herpes Zoster Without Complication 12/04/2010 AZAEL BECKER, RAYMUNDO 053.9 Herpes Zoster Without Complication 12/04/2010 LUEVANO DO, MIKE K 053.9 Herpes Zoster Without Complication 12/04/2010 REFUGIO PICKING BELT OPERATOR, LIDIA A 053.9 Herpes Zoster Without Complication 12/04/2010 LUEVANO DO, MIKE K 053.9 Herpes Zoster Without Complication 12/04/2010 LUEVANO DO, MIKE K 053.9 Herpes Zoster Without Complication 12/04/2010 REFUGOI PICKING BELT OPERATOR, LIDIA A 053.9 Herpes Zoster Without Complication [...] And Abscess Of Unspecified Sites 01/16/2011 REFUGIO PICKING BELT OPERATOR, LIDIA A 919.4 Insect Bite Nonvenomous Of Other Multiple And Unspecified Sites Without Infection 01/16/2011 REFUGIO MEDINA, LIDIA A 682.9 Cellulitis And Abscess Of Unspecified Sites 01/16/2011 REFUGIO MEDINA LIDIA A 919.4 Insect Bite Nonvenomous Of Other Multiple And Unspecified Sites Without Infection 01/16/2011 REFUGIO PICKING BELT OPERATOR, LIDIA A 682.9 Cellulitis And Abscess Of Unspecified Sites 01/16/2011 REFUGIO PICKING BELT OPERATOR, LIDIA A 919.4 Insect Bite Nonvenomous Of Other Multiple And Unspecified Sites Without Infection 01/16/2011 REFUGIO PICKING BELT OPERATOR, LIDIA A 682.9 Cellulitis And Abscess Of Unspecified Sites 01/16/2011 REFUGIO PICKING BELT OPERATOR, LIDIA A 919.4 Insect Bite Nonvenomous Of Other Multiple And Unspecified Sites Without Infection 01/16/2011 REFUGIO PICKING BELT OPERATOR, LIDIA A 682.9 Cellulitis And Abscess Of Unspecified Sites 01/16/2011 REFUGIO PICKING BELT OPERATOR, LIDIA A 919.4 Insect Bite Nonvenomous Of [...] And Abscess Of Unspecified Sites 01/16/2011 REFUGIO PICKING BELT OPERATOR, LIDIA A 919.4 Insect Bite Nonvenomous Of Other Multiple And Unspecified Sites Without Infection 04/09/2011 626.8 DUB 04/09/2011 626.8 Dub 04/09/2011 626.8 Dub 04/09/2011 626.8 Dub 04/09/2011 GARY RENO MD 626.8 Dub 04/09/2011 626.8 Dub 04/09/2011 LUEVANO DO, MIKE K 626.8 Dub 04/09/2011 626.8 Dub 04/09/2011 626.8 Dub 04/09/2011 626.8 Dub 04/09/2011 GARY RENO MD 626.8 Dub 04/09/2011 REFUGIO PICKING BELT OPERATOR, LIDIA A 626.8 Dub 04/09/2011 REFUGIO PICKING BELT OPERATOR, LIDIA A 626.8 Dub 04/09/2011 REFUGIO PICKING BELT OPERATOR, LIDIA A 626.8 Dub 04/09/2011 REFUGIO PICKING BELT OPERATOR, LIDIA A 626.8 Dub 04/09/2011 REFUGIO PICKING BELT OPERATOR, LIDIA A 626.8 Dub 04/09/2011 REFUGIO PICKING BELT OPERATOR, LIDIA A 626.8 Dub 04/09/2011 AZAEL BECKER, RAYMUNDO 626.8 Dub 04/09/2011 LUEVANO DO, MIKE K 626.8 Dub 04/09/2011 REFUGIO PICKING BELT OPERATOR, LIDIA A 626.8 Dub 04/09/2011 LUEVANO DO, MIKE K 626.8 Dub 04/09/2011 LUEVANO DO, MIKE K 626.8 Dub 04/09/2011 REFUGIO PICKING BELT OPERATOR, LIDIA A 626.8 Dub 04/23/2011 599.0 URINARY [...] 789.00 Abdominal Pain Unspecified Site 04/23/2011 REFUGIO PICKING BELT OPERATOR, LIDIA A 599.0 Urinary Tract Infection 04/23/2011 REFUGIO PICKING BELT OPERATOR, LIDIA A 789.00 Abdominal Pain Unspecified Site 04/23/2011 REFUGIO PICKING BELT OPERATOR, LIDIA A 599.0 Urinary Tract Infection 04/23/2011 REFUGIO PICKING BELT OPERATOR, LIDIA A 789.00 Abdominal Pain Unspecified Site 04/23/2011 REFUGIO PICKING BELT OPERATOR, LIDIA A 599.0 Urinary Tract Infection 04/23/2011 REFUGIO PICKING BELT OPERATOR, LIDIA A 789.00 Abdominal Pain Unspecified Site 04/23/2011 REFUGIO PICKING BELT OPERATOR, LIDIA A 599.0 Urinary Tract Infection 04/23/2011 REFUGIO PICKING BELT OPERATOR, LIDIA A 789.00 Abdominal Pain Unspecified Site 04/23/2011 REFUGIO PICKING BELT OPERATOR, LIDIA A 599.0 Urinary Tract Infection 04/23/2011 REFUGIO PICKING BELT OPERATOR, LIDIA A 789.00 Abdominal Pain Unspecified Site 04/23/2011 REFUGIO PICKING BELT OPERATOR, LIDIA A 599.0 Urinary Tract Infection 04/23/2011 REFUGIO PICKING BELT OPERATOR, LIDIA A 789.00 Abdominal Pain Unspecified Site 04/23/2011 AZAEL BECKER, RAYMUNDO 599.0 Urinary Tract Infection 04/23/2011 AZAEL BECKRE, RAYMUNDO 789.00 Abdominal Pain Unspecified Site 04/23/2011 LUEVANO DO, MIKE K 599.0 Urinary Tract Infection 04/23/2011 LUEVANO DO, MIKE K 789.00 Abdominal Pain Unspecified Site 04/23/2011 REFUGIO PICKING BELT OPERATOR, LIDIA A 599.0 Urinary Tract Infection 04/23/2011 REFUGIO PICKING BELT OPERATOR, LIDIA A 789.00 Abdominal Pain Unspecified Site [...] APRN A V25.9 Contraception Management 07/10/2011 LIDIA HFUF APRN A V65.45 Std Counseling 07/10/2011 LIDIA [...] MIKE K V74.5 Std Screen 07/10/2011 REFUGIO PICKING BELT OPERATOR, LIDIA A 626.4 IRREGULAR MENSTRUAL CYCLE 07/10/2011 REFUGIO PICKING BELT OPERATOR, LIDIA A V25.9 Contraception Management 07/10/2011 REFUGIO PICKING BELT OPERATOR, LIDIA A V65.45 Std Counseling 07/10/2011 REFUGIO PICKING BELT OPERATOR, LIDIA A V69.2 HIGH-RISK SEXUAL BEHAVIOR 07/10/2011 REFUGIO PICKING BELT OPERATOR, LIDIA A V72.41 Test Negative Result 07/10/2011 REFUGIO PICKING BELT OPERATOR, LIDIA A V74.5 Std Screen 07/10/2011 LUEVANO [...] MIKE K V74.5 Std Screen 07/10/2011 REFUGIO PICKING BELT OPERATOR, LIDIA A 626.4 IRREGULAR MENSTRUAL CYCLE 07/10/2011 REFUGIO PICKING BELT OPERATOR, LIDIA A V25.9 Contraception Management 07/10/2011 REFUGIO PICKING BELT OPERATOR, LIDIA A V65.45 Std Counseling 07/10/2011 REFUGIO PICKING BELT OPERATOR, LIDIA A V69.2 HIGH-RISK SEXUAL BEHAVIOR 07/10/2011 REFUGIO PICKING BELT OPERATOR, LIDIA A V72.41 Test Negative Result 07/10/2011 [...] MD 564.1 IRRITABLE BOWEL SYNDROME 09/25/2011 REFUGIO PICKING BELT OPERATOR, LIDIA A 564.1 IRRITABLE BOWEL SYNDROME 09/25/2011 REFUGIO PICKING BELT OPERATOR, LIDIA A 564.1 IRRITABLE BOWEL SYNDROME 09/25/2011 REFUGIO PICKING BELT OPERATOR, LIDIA A 564.1 IRRITABLE BOWEL SYNDROME 09/25/2011 REFUGIO PICKING BELT OPERATOR, LIDIA A 564.1 IRRITABLE BOWEL SYNDROME 09/25/2011 REFUGIO PICKING BELT OPERATOR, LIDIA A 564.1 IRRITABLE BOWEL SYNDROME 09/25/2011 REFUGIO PICKING BELT OPERATOR, LIDIA A 564.1 IRRITABLE BOWEL SYNDROME 09/25/2011 [...] V25.49 Contraception Surveillance (repeat Rx) 09/27/2011 REFUGIO PICKING BELT OPERATOR, LIDIA A V25.49 Contraception Surveillance (repeat Rx) 09/27/2011 REFUGIO PICKING BELT OPERATOR, LIDIA A V25.49 Contraception Surveillance (repeat Rx) 09/27/2011 REFUGIO PICKING BELT OPERATOR, LIDIA A V25.49 Contraception Surveillance (repeat Rx) 09/27/2011 REFUGIO PICKING BELT OPERATOR, LIDIA A V25.49 Contraception Surveillance (repeat Rx) 09/27/2011 REFUGIO PICKING BELT OPERATOR, LIDIA A V25.49 Contraception Surveillance (repeat Rx) 09/27/2011 RAYMUNDO ADDISON MD V25.49 Contraception Surveillance (repeat Rx) 09/27/2011 MIKE LUEVANO DO V25.49 Contraception Surveillance (repeat Rx) 09/27/2011 REFUGIO APRN, LIDIA A V25.49 Contraception Surveillance (repeat Rx) 09/27/2011 MIKE LUEVANO DO V25.49 Contraception Surveillance (repeat Rx) 09/27/2011 MIKE LUEVANO DO V25.49 Contraception Surveillance (repeat Rx) 09/27/2011 REFUGIO PICKING BELT OPERATOR, LIDIA A V25.49 Contraception Surveillance (repeat Rx) [...] A 373.11 Stye (hordeolum Externum) 01/16/2012 REFUGIO PICKING BELT OPERATOR, LIDIA A 373.11 Stye (hordeolum Externum) 01/16/2012 REFUGIO PICKING BELT OPERATOR, LIDIA A 373.11 Stye (hordeolum Externum) 01/16/2012 REFUGIO PICKING BELT OPERATOR, LIDIA A 373.11 Stye (hordeolum Externum) 01/16/2012 REFUGIO PICKING BELT OPERATOR, LIDIA A 373.11 Stye (hordeolum Externum) 01/16/2012 REFUGIO PICKING BELT OPERATOR, LIDIA A 373.11 Stye (hordeolum Externum) 01/16/2012 [...] DISORDER SINGLE EPISODE UNSPECIFIED DEGREE 06/17/2012 GARY ERNO MD 296.20 MAJOR DEPRESSIVE AFFECTIVE DISORDER SINGLE [...] DISORDER SINGLE EPISODE UNSPECIFIED DEGREE 06/17/2012 REFUGIO PICKING BELT OPERATOR, LIDIA A 296.20 MAJOR DEPRESSIVE AFFECTIVE DISORDER SINGLE EPISODE UNSPECIFIED DEGREE 06/17/2012 MIKE LUEVANO DO 296.20 MAJOR DEPRESSIVE AFFECTIVE DISORDER SINGLE EPISODE UNSPECIFIED DEGREE 06/17/2012 MIKE LUEVANO DO 296.20 MAJOR DEPRESSIVE AFFECTIVE DISORDER SINGLE EPISODE UNSPECIFIED DEGREE 06/17/2012 REFUGIO PICKING BELT OPERATOR, LIDIA A 296.20 MAJOR DEPRESSIVE AFFECTIVE DISORDER [...] MD 787.01 Nausea With Vomiting 06/25/2012 REFUGIO PICKING BELT OPERATOR, LIDIA A 008.8 Gastroenteritis, Viral 06/25/2012 REFUGIO PICKING BELT OPERATOR, LIDIA A 787.01 Nausea With Vomiting 06/25/2012 REFUGIO PICKING BELT OPERATOR, LIDIA A 008.8 Gastroenteritis, Viral 06/25/2012 REFUGIO PICKING BELT OPERATOR, LIDIA A 787.01 Nausea With Vomiting 06/25/2012 REFUGIO PICKING BELT OPERATOR, LIDIA A 008.8 Gastroenteritis, Viral 06/25/2012 REFUGIO PICKING BELT OPERATOR, LIDIA A 787.01 Nausea With Vomiting 06/25/2012 REFUGIO PICKING BELT OPERATOR, LIDIA A 008.8 Gastroenteritis, Viral 06/25/2012 REFUGIO PICKING BELT OPERATOR, LIDIA A 787.01 Nausea With Vomiting 06/25/2012 REFUGIO PICKING BELT OPERATOR, LIDIA A 008.8 Gastroenteritis, Viral 06/25/2012 REFUGIO PICKING BELT OPERATOR, LIDIA A 787.01 Nausea With Vomiting 06/25/2012 REFUGIO PICKING BELT OPERATOR, LIDIA A 008.8 Gastroenteritis, Viral 06/25/2012 REFUGIO PICKING BELT OPERATOR, LIDIA A 787.01 Nausea With Vomiting 06/25/2012 [...] LIDIA A V74.5 STD SCREEN 07/02/2012 REFUGIO PICKING BELT OPERATOR, LIDIA A V25.9 Gynecologic Services Contraceptive Management 07/02/2012 REFUGIO PICKING BELT OPERATOR, LIDIA A V74.5 STD SCREEN 07/02/2012 REFUGIO PICKING BELT OPERATOR, LIDIA A V25.9 Gynecologic Services Contraceptive Management 07/02/2012 REFUGIO PICKING BELT OPERATOR, LIDIA A V74.5 STD SCREEN 07/02/2012 REFUGIO PICKING BELT OPERATOR, LIDIA A V25.9 Gynecologic Services Contraceptive Management 07/02/2012 REFUGIO TON, LIDIA A V74.5 STD SCREEN 07/02/2012 REFUGIO PICKING BELT OPERATOR, LIDIA A V25.9 Gynecologic Services Contraceptive Management 07/02/2012 REFUGIO TON, LIDIA A V74.5 STD SCREEN 07/02/2012 REFUGIO TON, LIDIA A V25.9 Gynecologic Services Contraceptive Management 07/02/2012 REFUGIO PICKING BELT OPERATOR, LIDIA A V74.5 STD SCREEN 07/02/2012 AZAEL BECKER, RAYMUNDO V25.9 Gynecologic Services Contraceptive Management 07/02/2012 AZAEL BECKER, RAYMUNDO V74.5 STD SCREEN 07/02/2012 CHLOÉ GARSIA MIKE K V25.9 Gynecologic Services Contraceptive Management 07/02/2012 CHLOÉ GARSIA MIKE K V74.5 STD SCREEN 07/02/2012 REFUGIO OTN, ILDIA A V25.9 Gynecologic Services Contraceptive Management 07/02/2012 REFUGIO TON, LIDIA A V74.5 STD SCREEN 07/02/2012 CHLOÉ GARSIA MIKE K V25.9 Gynecologic Services Contraceptive Management 07/02/2012 LUEVANO DO MIKE K V74.5 STD SCREEN 07/02/2012 LUEVANO DO MIKE K V25.9 Gynecologic Services Contraceptive Management 07/02/2012 LUEVANO DO MIKE K V74.5 STD SCREEN 07/02/2012 REFUGIO TON, LIDIA A V25.9 Gynecologic Services Contraceptive Management 07/02/2012 REFUGIO PICKING BELT OPERATOR, LIDIA A V74.5 STD SCREEN 07/03/2012 SHADIA [...] 789.00 ABDOMINAL PAIN UNSPECIFIED SITE 07/03/2012 REFUGIO PICKING BELT OPERATOR, LIDIA A 787.03 vomiting 07/03/2012 REFUGIO PICKING BELT OPERATOR, LIDIA A 789.00 ABDOMINAL PAIN UNSPECIFIED SITE 07/03/2012 REFUGIO PICKING BELT OPERATOR, LIDIA A 787.03 vomiting 07/03/2012 REFUGIO PICKING BELT OPERATOR, LIDIA A 789.00 ABDOMINAL PAIN UNSPECIFIED SITE 07/03/2012 REFUGIO PICKING BELT OPERATOR, LIDIA A 787.03 VOMITING 07/03/2012 REFUGIO PICKING BELT OPERATOR, LIDIA A 789.00 ABDOMINAL PAIN UNSPECIFIED SITE 07/03/2012 REFUGIO PICKING BELT OPERATOR, LIDIA A 787.03 VOMITING 07/03/2012 REFUGIO PICKING BELT OPERATOR, LIDIA A 789.00 ABDOMINAL PAIN UNSPECIFIED SITE 07/03/2012 REUFGIO PICKING BELT OPERATOR, LIDIA A 787.03 VOMITING 07/03/2012 REFUGIO PICKING BELT OPERATOR, LIDIA A 789.00 ABDOMINAL PAIN UNSPECIFIED SITE 07/03/2012 REFUGIO PICKING BELT OPERATOR, LIDIA A 787.03 VOMITING 07/03/2012 REFUGIO PICKING BELT OPERATOR, LIDIA A 789.00 ABDOMINAL PAIN UNSPECIFIED SITE 07/03/2012 RAYMUNDO ADDISON MD 787.03 VOMITING 07/03/2012 AZAEL BECKER, RAYMUNDO 789.00 ABDOMINAL PAIN UNSPECIFIED SITE 07/03/2012 LUEVANO DO, MIKE K 787.03 VOMITING 07/03/2012 LUEVANO DO, MIKE K 789.00 ABDOMINAL PAIN UNSPECIFIED SITE 07/03/2012 REFUGIO MEDINA, LIDIA A 787.03 VOMITING 07/03/2012 REFUGIO PICKING BELT OPERATOR, LIDIA A 789.00 ABDOMINAL PAIN UNSPECIFIED SITE [...] ACUTE PARAMETRITIS AND PELVIC CELLULITIS 09/08/2012 REFUGIO PICKING BELT OPERATOR, LIDIA A 614.3 ACUTE PARAMETRITIS AND PELVIC CELLULITIS 09/18/2012 CHLOÉ GARSIA MIKE K 008.8 GASTROENTERITIS, VIRAL 09/18/2012 008.8 GASTROENTERITIS, VIRAL 09/18/2012 008.8 GASTROENTERITIS, VIRAL 09/18/2012 008.8 GASTROENTERITIS, VIRAL 09/18/2012 GARY RENO MD 008.8 GASTROENTERITIS, VIRAL 09/18/2012 REFUGIO MEDINA, LIDIA A 008.8 GASTROENTERITIS, VIRAL 09/18/2012 REFUGIO TON, LIDIA A 008.8 GASTROENTERITIS, VIRAL 09/18/2012 REFUGIO PICKING BELT OPERATOR, LIDIA A 008.8 GASTROENTERITIS, VIRAL 09/18/2012 REFUGIO PICKING BELT OPERATOR, LIDIA A 008.8 GASTROENTERITIS, VIRAL 09/18/2012 REFUGIO PICKING BELT OPERATOR, LIDIA A 008.8 GASTROENTERITIS, VIRAL 09/18/2012 REFUGIO PICKING BELT OPERATOR, LIDIA A 008.8 GASTROENTERITIS, VIRAL 09/18/2012 AZAEL BECKER, RAYMUNDO 008.8 GASTROENTERITIS, VIRAL 09/18/2012 CHLOÉ GARSIA MIKE K 008.8 GASTROENTERITIS, VIRAL 09/18/2012 REFUGIO PICKING BELT OPERATOR, LIDIA A 008.8 GASTROENTERITIS, VIRAL 09/18/2012 LUEVANO DO MIKE K 008.8 GASTROENTERITIS, VIRAL 09/18/2012 LUEVANO DO MIKE K 008.8 GASTROENTERITIS, VIRAL 09/18/2012 REFUGIO PICKING BELT OPERATOR, LIDIA A 008.8 GASTROENTERITIS, VIRAL 10/02/2012 465.9 UPPER RESPIRATORY INFECTION 10/02/2012 465.9 UPPER RESPIRATORY INFECTION 10/02/2012 465.9 UPPER RESPIRATORY INFECTION 10/02/2012 GARY RENO MD 465.9 UPPER RESPIRATORY INFECTION 10/02/2012 LIDIA HUFF APRN A 465.9 UPPER RESPIRATORY INFECTION 10/02/2012 REFUGIO PICKING BELT OPERATOR, LIDIA A 465.9 UPPER RESPIRATORY INFECTION 10/02/2012 REFUGIO PICKING BELT OPERATOR, LIDIA A 465.9 UPPER RESPIRATORY INFECTION 10/02/2012 REFUGIO PICKING BELT OPERATOR, LIDIA A 465.9 UPPER RESPIRATORY INFECTION 10/02/2012 REFUGIO PICKING BELT OPERATOR, LIDIA A 465.9 UPPER RESPIRATORY INFECTION 10/02/2012 REFUGIO PICKING BELT OPERATOR, LIDIA A 465.9 UPPER RESPIRATORY INFECTION 10/02/2012 AZAEL BECKER, RAYMUNDO 465.9 UPPER RESPIRATORY INFECTION 10/02/2012 LUEVANO DO, MIKE K 465.9 UPPER RESPIRATORY INFECTION 10/02/2012 REFUGIO PICKING BELT OPERATOR, LIDIA A 465.9 UPPER RESPIRATORY INFECTION 10/02/2012 LUEVANO DO, MIKE K 465.9 UPPER RESPIRATORY INFECTION 10/02/2012 LUEVANO DO, MIKE K 465.9 UPPER RESPIRATORY INFECTION 10/02/2012 REFUGIO PICKING BELT OPERATOR, LIDIA A 465.9 UPPER RESPIRATORY INFECTION 01/09/2013 459.89 Ecchymosis 01/09/2013 459.89 Ecchymosis 01/09/2013 SHADIA BECKER, GARY 459.89 Ecchymosis 01/09/2013 REFUGIO PICKING BELT OPERATOR, LIDIA A 459.89 Ecchymosis 01/09/2013 REFUGIO PICKING BELT OPERATOR, LIDIA A 459.89 Ecchymosis 01/09/2013 REFUGIO PICKING BELT OPERATOR, LIDIA A 459.89 Ecchymosis 01/09/2013 REFUGIO PICKING BELT OPERATOR, LIDIA A 459.89 Ecchymosis 01/09/2013 REFUGIO PICKING BELT OPERATOR, LIDIA A 459.89 Ecchymosis 01/09/2013 REFUGIO PICKING BELT OPERATOR, LIDIA A 459.89 Ecchymosis 01/09/2013 AZAEL BECKER, RAYMUNDO 459.89 Ecchymosis 01/09/2013 LUEVANO DO, MIKE K 459.89 Ecchymosis 01/09/2013 REFUGIO PICKING BELT OPERATOR, LIDIA A 459.89 Ecchymosis 01/09/2013 LUEVANO DO, MIKE K 459.89 Ecchymosis 01/09/2013 LUEVANO DO, MIKE K 459.89 Ecchymosis 01/09/2013 REFGUIO PICKING BELT OPERATOR, LIDIA A 459.89 Ecchymosis 02/20/2013 477.0 ALLERGIC RHINITIS DUE TO POLLEN 02/20/2013 477.0 ALLERGIC RHINITIS DUE TO POLLEN 02/20/2013 SHADIA BECKER, GARY 477.0 ALLERGIC RHINITIS DUE TO POLLEN 02/20/2013 REFUGIO PICKING BELT OPERATOR, LIDIA A 477.0 ALLERGIC RHINITIS DUE TO POLLEN 02/20/2013 REFUGIO PICKING BELT OPERATOR, LIDIA A 477.0 ALLERGIC RHINITIS DUE TO POLLEN 02/20/2013 REFUGIO PICKING BELT OPERATOR, LIDIA A 477.0 ALLERGIC RHINITIS DUE TO POLLEN 02/20/2013 REFUGIO PICKING BELT OPERATOR, LIDIA A 477.0 ALLERGIC RHINITIS DUE TO POLLEN 02/20/2013 REFUGIO PICKING BELT OPERATOR, LIDIA A 477.0 ALLERGIC RHINITIS DUE TO POLLEN 02/20/2013 REFUGIO PICKING BELT OPERATOR, LIDIA A 477.0 ALLERGIC RHINITIS DUE TO POLLEN 02/20/2013 AZAEL BECKER, RAYMUNDO 477.0 ALLERGIC RHINITIS DUE TO POLLEN 02/20/2013 LUEVANO DO, MIKE K 477.0 ALLERGIC RHINITIS DUE TO POLLEN 02/20/2013 REFUGIO PICKING BELT OPERATOR, LIDIA A 477.0 ALLERGIC RHINITIS DUE TO POLLEN 02/20/2013 LUEVANO DO, MIKE K 477.0 ALLERGIC RHINITIS DUE TO POLLEN 02/20/2013 LUEVANO DO, MIKE K 477.0 ALLERGIC RHINITIS DUE TO POLLEN 02/20/2013 REFUGIO PICKING BELT OPERATOR, LIDIA A 477.0 ALLERGIC RHINITIS DUE TO POLLEN 03/03/2013 V25.02 CONTRACEPTION - ANY METHOD 03/03/2013 SHADIA BECKER, GARY V25.02 CONTRACEPTION - ANY METHOD 03/03/2013N PICKING BELT OPERATOR, LIDIA A V25.02 CONTRACEPTION - ANY METHOD 03/03/2013 REFUGIO PICKING BELT OPERATOR, LIDIA A V25.02 CONTRACEPTION - ANY METHOD 03/03/2013 REFUGIO PICKING BELT OPERATOR, LIDIA A V25.02 CONTRACEPTION - ANY METHOD 03/03/2013 REFUGIO PICKING BELT OPERATOR, LIDIA A V25.02 CONTRACEPTION - ANY METHOD 03/03/2013 REFUGIO PICKING BELT OPERATOR, LIDIA A V25.02 CONTRACEPTION - ANY METHOD 03/03/2013N PICKING BELT OPERATOR, LIDIA A V25.02 CONTRACEPTION - ANY METHOD 03/03/2013 RAYMUNDO ADDISON MD V25.02 CONTRACEPTION - ANY METHOD 03/03/2013 MIKE LUEVANO DO V25.02 CONTRACEPTION - ANY METHOD 03/03/2013 REFUGIO TON, LIDIA A V25.02 CONTRACEPTION - ANY METHOD 03/03/2013 LUEVANO MIKE GARSIA V25.02 CONTRACEPTION - ANY METHOD 03/03/2013 LUEVANO MIKE GARSIA K V25.02 CONTRACEPTION - ANY METHOD 03/03/2013 REFUGIO PICKING BELT OPERATOR, LIDIA A V25.02 CONTRACEPTION - ANY METHOD 04/04/2013 OLIVE MCBRIDE MD Ot 558.9 NONINF GASTROENTERIT NEC 04/04/2013 OLIVE MCBRIDE MD Ot 787.01 NAUSEA WITH VOMITING 04/15/2013 SHADIA BECKER, GARY V04.81 FLU SHOT 04/15/2013 REFUGIO PICKING BELT OPERATOR, LIDIA A V04.81 FLU SHOT 04/15/2013 REFUGIO PICKING BELT OPERATOR, LIDIA A V04.81 FLU SHOT 04/15/2013 REFUGIO PICKING BELT OPERATOR, LIDIA A V04.81 FLU SHOT 04/15/2013 REFUGIO PICKING BELT OPERATOR, LIDIA A V04.81 FLU SHOT 04/15/2013 REFUGIO PICKING BELT OPERATOR, LIDIA A V04.81 FLU SHOT 04/15/2013 REFUGIO PICKING BELT OPERATOR, LIDIA A V04.81 FLU SHOT 04/15/2013 AZAEL BECKER, RAYMUNDO V04.81 FLU SHOT 04/15/2013 CHLOÉ GARSIA, MIKE K V04.81 FLU SHOT 04/15/2013 REFUGIO PICKING BELT OPERATOR, LIDIA A V04.81 FLU SHOT 04/15/2013 LUEVANO MIKE AGRSIA K V04.81 FLU SHOT 04/15/2013 CHLOÉ GARSIASHAWNA K V04.81 FLU SHOT 04/15/2013 REFUGIO PICKING BELT OPERATOR, LIDIA A V04.81 FLU SHOT 05/06/2013 LOBITO [...] 789.00 ABDOMINAL PAIN, UNSPECIFIED SITE 10/08/2013 REFUGIO PICKING BELT OPERATOR, LIDIA A 788.1 DYSURIA 10/08/2013 REFUGIO PICKING BELT OPERATOR, LIDIA A V72.41 TEST NEGATIVE RESULT 10/08/2013 REFUGIO PICKING BELT OPERATOR, LIDIA A 788.1 DYSURIA 10/08/2013 REFUGIO PICKING BELT OPERATOR, LIDIA A V72.41 TEST NEGATIVE RESULT 10/08/2013 REFUGIO PICKING BELT OPERATOR, LIDIA A 788.1 DYSURIA 10/08/2013 REFUGIO APRN, [...] ANXIETY DISORDER, UNSPECIFIED 12/29/2017 MEDINA, PETER J PICKING BELT OPERATOR Ot M54.5 LOW BACK PAIN 12/29/2017 LOBITO MEDINA PICKING BELT OPERATOR Ot N39.0 URINARY TRACT INFECTION, SITE NOT SPECIF 12/29/2017 LOBITO MEDINA PICKING BELT OPERATOR Ot N83.202 UNSPECIFIED OVARIAN CYST, LEFT SIDE 12/29/2017 LOBITO MEDINA APRN Ot R10.33 PERIUMBILICAL PAIN 12/29/2017 LOBITO MEDINA APRN Ot Z90.89 ACQUIRED ABSENCE OF OTHER ORGANS 12/31/2017 LOBITO MEDINA PICKING BELT OPERATOR Ot F17.210 NICOTINE DEPENDENCE, CIGARETTES, UNCOMPL 12/31/2017 [...] OTHER DISEASES OF UR 04/28/2018 LOBITO MEDINA PICKING BELT OPERATOR Ot Z90.89 ACQUIRED ABSENCE OF OTHER ORGANS [...] Ot Z90.89 ACQUIRED ABSENCE OF OTHER ORGANS 07/06/2018 CHAO PERDUE DO Ot F31.9 BIPOLAR DISORDER, UNSPECIFIED 07/06/2018 CHAO PERDUE DO Ot F41.9 ANXIETY DISORDER, UNSPECIFIED 07/06/2018 CHAO PERDUE DO Ot J20.9 ACUTE BRONCHITIS, UNSPECIFIED 07/06/2018 CHAO PERDUE DO Ot J40 BRONCHITIS, NOT SPECIFIED ACUTE OR CH 07/06/2018 CHAO PERDUE DO Ot K52.9 NONINFECTIVE GASTROENTERITIS AND COLITIS 07/06/2018 CHAO PERDUE DO Ot Z77.22 CNTCT W AND EXPSR TO ENVIRON TOBACCO SMO 07/06/2018 CHAO PERDUE DO Ot Z86.19 PERSONAL HISTORY OF OTHER INFECTIOUS AND 07/06/2018 CHAO PERDUE DO Ot Z87.448 PERSONAL HISTORY OF OTHER DISEASES OF UR 07/06/2018 CHAO PERDUE DO Ot Z90.89 ACQUIRED ABSENCE OF OTHER ORGANS Procedures Code Description [place] [id number] HEMOGLOBIN (IN-HOUSE) 06/14/2012 J1055 Depo-Provera Contraceptive 150 mg/mL Suspension 06/14/2012 50133 ROUTINE VENIPUNCTURE 07/02/2012 07768 THERAPUTIC INJ SQ/IM 07/02/2012 J1055 Depo-Provera Contraceptive 150 mg/mL Suspension 07/02/2012 53231 URINE TEST (IN- HOUSE) 07/02/2012 63648 [facility] 07/03/2012 16711 HIV-[facility] 07/03/2012 27502 GC/CHLAM URINE (STATE) 07/03/2012 Maximilian Horn 09/11/2012 67342 THERAPUTIC INJ SQ/IM 10/02/2012 J1050 DEPO PROVERA 10/02/2012 44894 URINE TEST (IN- HOUSE) 10/02/2012 80450 URINE TEST (IN- HOUSE) 03/03/2013 53370 CULTURE UROGENITAL 05/18/2013 19232 GC/CHLAM PROBE (STATE) 05/18/2013 42392 URINE TEST (IN- HOUSE) 05/18/2013 19153 TRICHOMONAS (IN-HOUSE) 05/18/2013 34154 THERAPUTIC INJ SQ/IM 05/27/2013 J1050 DEPO PROVERA 05/27/2013 46500 GC/CHLAM PROBE (STATE) 08/05/2013 98165 TRICHOMONAS (IN-HOUSE) 08/05/2013 66971 CULTURE UROGENITAL 08/07/2013 83713 TEST, URINE (IN- HOUSE) 10/08/2013 66116 [facility] 11/04/2013 92793 HIV (STATE LAB) 11/04/2013 85073 GC/CHLAM PROBE (STATE) 11/04/2013 11809 TEST, URINE (IN- HOUSE) 11/04/2013 53442 TRICHOMONAS (IN-HOUSE) 11/04/2013 66815 CULTURE UROGENITAL 11/07/2013 81861 TRICHOMONAS (IN-HOUSE) 03/24/2014 44947 CULTURE UROGENITAL 03/25/2014 34966 GC/CHLAM PROBE (STATE) 03/25/2014 51885 ROUTINE VENIPUNCTURE 04/20/2014 99372 [facility] 04/20/2014 51528 HIV (STATE LAB) 04/20/2014 88778 GC/CHLAM PROBE ([facility]) 04/20/2014 79722 UA W/ CULTURE IF INDICATED 04/20/2014 42426 TEST, URINE (IN- HOUSE) 04/20/2014 03761 TRICHOMONAS (IN-HOUSE) 04/20/2014 58779 CULTURE UROGENITAL 04/21/2014 37501 TRICHOMONAS (IN-HOUSE) 05/26/2014 84361 TB TEST INTRADERMAL 08/04/2014 Results Test Result [...] 5-8.5 Urine-Protein Trace Negative Urine-RBC 2-5/HPF Urine-Specific [place] >=1.030 1.000-1.030 Urine-WBC 2-5/HPF Urobilinogen 0.2 E.U./dL [...] 9.9 fL 7.5-12.5 ABSOLUTE NEUTROPHILS 5460 cells/uL [id number] ABSOLUTE LYMPHOCYTES 2766 cells/uL [id number] ABSOLUTE MONOCYTES [...] NRG STATEMENT OF ADEQUACY: NRG INTERPRETATION/RESULT: NRG [employer]: NRG COMMENT NRG Complete urinalysis with reflex [...] NEGATIVE NEGATIVE Urine propoxyphene detection NEGATIVE NEGATIVE Complete urinalysis with reflex to culture - 06/29/18 14:20 Urine color determination YELLOW NRG Urine clarity determination SLIGHTLY CLOUDY NRG Urine pH measurement by test strip 6.5 5-9 Specific gravity of urine by test strip 1.010 1.016- 1.022 Urine protein assay by test [...] detection in urine sediment by light microscopy 10-25 NRG Crystals detection in urine sediment by light microscopy NONE NRG Casts detection in urine sediment by light microscopy NONE NRG Mucus detection in urine sediment by light microscopy NEGATIVE NRG Complete urinalysis with reflex to culture NO NRG Urine drug screening test - 06/29/18 14:20 Urine phencyclidine detection by screening method NEGATIVE [...] NEGATIVE NEGATIVE Urine propoxyphene detection NEGATIVE NEGATIVE Complete blood count (CBC) with automated white blood cell (WBC) differential - 06/29/18 14:30 Blood leukocytes automated count (number/volume) 10.5 10*3/uL 4.3-11.0 Blood erythrocytes automated count (number/volume) 4.89 10*6/uL 4.35-5.85 Venous blood hemoglobin measurement (mass/volume) 15.2 g/dL 11.5-16.0 Blood hematocrit (volume fraction) 45 % 35-52 Automated erythrocyte mean corpuscular volume 92 [foz_us] 80-99 Automated erythrocyte mean corpuscular hemoglobin (mass per erythrocyte) 31 pg 25-34 Automated erythrocyte mean corpuscular hemoglobin concentration measurement ( mass/volume) 34 g/dL 32-36 Automated erythrocyte distribution width ratio 12.8 % 10.0-14.5 Automated blood platelet count (count/volume) 231 10*3/uL 130-400 Automated blood platelet mean volume measurement 10.7 [foz_us] 7.4-10.4 Automated blood neutrophils/100 leukocytes 66 % 42-75 Automated blood lymphocytes/100 leukocytes 22 % 12-44 Blood monocytes/100 leukocytes 9 % 0-12 Automated blood eosinophils/100 leukocytes 3 % 0-10 Automated blood basophils/100 leukocytes 0 % 0-10 Blood neutrophils automated count (number/volume) 6.9 10*3 1.8-7.8 Blood lymphocytes automated count (number/volume) 2.3 10*3 1.0-4.0 Blood monocytes automated count (number/volume) 0.9 10*3 0.0-1.0 Automated eosinophil count 0.3 10*3/uL 0.0-0.3 Automated blood basophil count (count/volume) 0.0 10*3/uL 0.0-0.1 Comprehensive metabolic panel - 06/29/18 14:30 Serum or plasma sodium measurement (moles/volume) 140 mmol/L 135-145 Serum or plasma potassium measurement (moles/volume) 4.0 mmol/L 3.6-5.0 Serum or plasma chloride measurement (moles/volume) 109 mmol/L 98-107 Carbon dioxide 20 mmol/L 21-32 Serum or plasma anion gap determination (moles/volume) 11 mmol/L 5-14 Serum or plasma urea nitrogen measurement (mass/volume) 11 mg/dL 7-18 Serum or plasma creatinine measurement (mass/volume) 0.72 mg/dL 0.60-1.30 Serum or plasma urea nitrogen/creatinine mass ratio 15 NRG Serum or plasma creatinine measurement with calculation of estimated glomerular filtration rate > NRG Serum or plasma glucose measurement (mass/volume) 67 mg/dL 70-105 Serum or plasma calcium measurement (mass/volume) 9.4 mg/dL 8.5-10.1 Serum or plasma total bilirubin measurement (mass/volume) 0.5 mg/dL 0.1-1.0 Serum or plasma alkaline phosphatase measurement (enzymatic activity/volume) 47 U/L 40-136 Serum or plasma aspartate aminotransferase measurement (enzymatic activity/ volume) 15 U/L 5-34 Serum or plasma alanine aminotransferase measurement (enzymatic activity/volume ) 15 U/L 0-55 Serum or plasma protein measurement (mass/volume) 8.0 g/dL 6.4-8.2 Serum or plasma albumin measurement (mass/volume) 4.9 g/dL 3.2-4.5 Serum or plasma amylase measurement (enzymatic activity/volume) - 06/29/18 14: 30 Serum or plasma amylase measurement (enzymatic activity/volume) 43 U /L 25-125 Lipase - 06/29/18 14:30 Lipase 24 U/L 8-78 Serum or plasma ethanol measurement (mass/volume) - 06/29/18 14:30 Serum or plasma ethanol measurement (mass/volume) < mg/dL <10 Encounters ACCT No. Visit Date/Time Discharge Status Pt. Type Provider Facility Loc./Unit Complaint [id number] 08/18/2014 09:39:00 08/18/2014 23:59:59 CLS Outpatient JOSEFINA HUFF APRNSTEFANY Rojas [id number] 08/04/2014 17:04:00 08/04/2014 23:59:59 CLS Outpatient MIKE LUEVANO DO [id number] 05/26/2014 16:25:00 05/26/2014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
[2018-08-22 16:37] LABS: BASOPHILS % (AUTO) 0 % (0-10); EOSINOPHILS # (AUTO) 0.2 10^3/uL (0.0-0.3); EOSINOPHILS % (AUTO) 2 % (0-10); HEMATOCRIT 39 % (35-52); HEMOGLOBIN 13.8 G/DL (11.5-16.0); LYMPHOCYTES # (AUTO) 2.3 X 10^3 (1.0-4.0); LYMPHOCYTES % (AUTO) 31 % (12-44); MEAN CORPUSCULAR HEMOGLOBIN 32 PG (25-34); MEAN CORPUSCULAR HGB CONC 35 G/DL (32-36); MEAN CORPUSCULAR VOLUME 90 FL (80-99); MEAN PLATELET VOLUME 10.2 FL (7.4-10.4); MONOCYTES # (AUTO) 0.5 X 10^3 (0.0-1.0); MONOCYTES % (AUTO) 6 % (0-12); NEUTROPHILS # (AUTO) 4.5 X 10^3 (1.8-7.8); NEUTROPHILS % (AUTO) 61 % (42-75); PLATELET COUNT 262 10^3/uL (130-400); RED CELL DISTRIBUTION WIDTH 12.4 % (10.0-14.5); WHITE BLOOD COUNT 7.4 10^3/uL (4.3-11.0)
--- NOTE | 2018-08-22 16:45 | Diagnostic Imaging Report ---
Indication: Cough for 3 weeks PA and lateral views of the chest obtained with comparison made study of 06/29/2018. FINDINGS: Heart size and pulmonary vascularity are within normal limits, and the lungs are clear, bilaterally. IMPRESSION: Unremarkable chest. Dictated by: Dictated on workstation # [id number]
[2018-08-22 16:51] LABS: ALANINE AMINOTRANSFERASE 21 U/L (0-55); ALBUMIN 4.5 GM/DL (3.2-4.5); ALKALINE PHOSPHATASE 40 U/L (40-136); BILIRUBIN,TOTAL 0.2 MG/DL (0.1-1.0); BUN/CREATININE RATIO 17; CALCIUM 9.8 MG/DL (8.5-10.1); CARBON DIOXIDE 22 MMOL/L (21-32); CHLORIDE 110 MMOL/L (98-107); CREATININE SERUM 0.75 MG/DL (0.60-1.30); GFR ESTIMATED > 60; GLUCOSE 90 MG/DL (70-105); POTASSIUM 3.9 MMOL/L (3.6-5.0); SODIUM 140 MMOL/L (135-145)
[2018-08-22] MEDS ORDERED: RT-ALBUINH IH (16:51)
[2018-08-22] MEDS ORDERED: AZIT250T PO (16:51)
[2018-08-22] MEDS ORDERED: METH4TAB PO (16:51)
[2018-08-22] MEDS ORDERED: D-ME473S38 PO (16:51)
--- NOTE | 2018-08-22 16:51 | ED Cough/URI ---
General Chief Complaint: Coughing up blood Stated Complaint: COUGHING UP BLOOD Nursing Triage Note: PATIENT AMBULATORY TO ER WITH FRIEND COMPLAINING OF COUGH X 2 WEEKS. PATIENT STATES TODAY SHE BEGAN TO COUGH UP A LARGE AMOUNT OF BRIGHT RED BLOOD. PATIENT IS ALSO COMPLAINING OF ABDOMINAL PAIN X 3 MONTHS AND STATES SHE HAS HAD ONE EPISODE OF VOMITING A DAY X 3 MONTHS. SHE HAS A HISTORY OF GASTRITIS. Sepsis Screen: No Definite Risk Source: patient Exam Limitations: no limitations History of Present Illness Date Seen by Provider: Aug 22, 2018 Time Seen by Provider: 16:15 Initial Comments 23-year-old female who presents to the emergency room with complaints of cough for the past 2 weeks. She said that this morning she started to cough up phlegm had bright red blood streaks through it. She denies shortness of breath, fevers , wheezing. Timing/Duration: this morning, changing over time Severity/Quality: productive cough, blood streaked sputum Associated Symptoms: cough, nasal congestion Allergies and Home Medications Allergies Coded Allergies: No Known Drug Allergies (Unverified , 08/22/18) Home Medications Albuterol Sulfate 1 Puff Puff, 2 PUFF IH Q4H PRN for COUGH 1 PUFF = 90 MCG Prescribed by: ABBI KNOX on 08/22/181650 Azithromycin 250 Mg Tablet, 250 MG PO UD TAKE 2 TABLETS TODAY, THEN TAKE 1 TABLET DAILY FOR 4 MORE DAYS Prescribed by: ABBI KNOX on 08/22/18 165 Methylprednisolone 4 Mg Tab.ds.pk, 4 MG PO UD Prescribed by: ABBI KNOX on 08/22/181650 Promethazine/Dextromethorphan 473 Ml Syrup, 5 ML PO Q4H PRN for COUGH Prescribed by: ABBI KNOX on 08/22/18 165 Patient Home Medication List Home Medication List Reviewed: Yes Review of Systems Review of Systems Constitutional: see HPI; No chills, No fever Respiratory: see HPI, cough, hemoptysis, phlegm All Other Systems Reviewed Negative Unless Noted: Yes Past Hczrpzi-Mvmuxv-Flzjml Hx Past Med/Social Hx: Reviewed Nursing Past Med/Soc Hx Patient Social History Alcohol Use: Denies Use Recreational Drug Use: No Drug of Choice: COCAINE, METH, THC, ECSTASY. DENIES IV USE Smoking Status: Current Everyday Smoker Type Used: Cigarettes 2nd Hand Smoke Exposure: Yes Recent Foreign Travel: No Contact w/Someone Who Travel: No Recent Infectious Disease Expo: No Recent Hopitalizations: No Physical Abuse: No Sexual Abuse: No Mistreated: No Fear: No Immunizations Up To Date Tetanus Booster (TDap): Unknown PED Vaccines UTD: Yes Date of Influenza Vaccine: Mar 30, 2013 Seasonal Allergies Seasonal Allergies: No Past Medical History Surgeries: Yes (EGD) Adenoidectomy, Tonsillectomy Respiratory: No Cardiac: No Neurological: No : No Last Menstrual Period: Jul 31, 2018 Reproductive Disorders: No Female Reproductive Disorders: Menstrual Problems, Ovarian Cyst Sexually Transmitted Disease: Yes (Trichomonas and Chlamydia) HIV/AIDS: No Genitourinary: No Gastrointestinal: Yes (GASTRITIS) Musculoskeletal: No Endocrine: No HEENT: No Cancer: No Psychosocial: Yes Anxiety, Bipolar, Depression Integumentary: No Blood Disorders: No Adverse Reaction/Blood Tranf: No Family Medical History Reviewed Nursing Family Hx No Pertinent Family Hx Physical Exam Vital Signs - First Documented 08/22/18 08/22/18 16:09 17:14 Temp 97.7 Pulse 100 Resp 18 B/P (MAP) 124/68 (86) Pulse Ox 98 O2 Delivery Nasal Cannula Capillary Refill : Less Than 3 Seconds Height: 5'9.00" Weight: 159lbs. oz. 72.788308ti; 25.06 BMI Method:Stated General Appearance: WD/WN, no apparent distress Eyes: Bilateral Eye Normal Inspection, Bilateral Eye PERRL, Bilateral Eye EOMI HEENT: normal ENT inspection, TMs normal, pharynx normal Neck: non-tender, full range of motion, supple, normal inspection, carotid bruit Respiratory: chest non-tender, lungs clear, normal breath sounds, no respiratory distress, no accessory muscle use, respiratory distress Cardiovascular: normal peripheral pulses, regular rate, rhythm, no edema, no gallop, no JVD, no murmur Neurologic/Psychiatric: alert, normal mood/affect, oriented x 3 Skin: normal color, warm/dry Progress/Results/Core Measures Suspected Sepsis Recent Fever Within 48 Hours: No Infection Criteria Present: None New/Unexplained Altered Menta: No Sepsis Screen: No Definite Risk SIRS Temperature:97.7 Pulse: 100 Respiratory Rate: 18 Laboratory Tests 08/22/18 16:26: White Blood Count 7.4 Blood Pressure 124 /68 Mean: 86 Laboratory Tests 08/22/18 16:26: Creatinine 0.75, Platelet Count 262, Total Bilirubin 0.2 Results/Orders Lab Results Laboratory Tests Test 08/22/18 16:26 Range/Units White Blood Count 7.4 4.3-11.0 10^3/uL Red Blood Count 4.35 4.35-5.85 10^6/uL Hemoglobin 13.8 11.5-16.0 G/DL Hematocrit 39 35-52 % Mean Corpuscular Volume 90 80-99 FL Mean Corpuscular Hemoglobin 32 25-34 PG Mean Corpuscular Hemoglobin Concent 35 32-36 G/DL Red Cell Distribution Width 12.4 10.0-14.5 % Platelet Count 262 130-400 10^3/uL Mean Platelet Volume 10.2 7.4-10.4 FL Neutrophils (%) (Auto) 61 42-75 % Lymphocytes (%) (Auto) 31 12-44 % Monocytes (%) (Auto) 6 0-12 % Eosinophils (%) (Auto) 2 0-10 % Basophils (%) (Auto) 0 0-10 % Neutrophils # (Auto) 4.5 1.8-7.8 X 10^3 Lymphocytes # (Auto) 2.3 1.0-4.0 X 10^3 Monocytes # (Auto) 0.5 0.0-1.0 X 10^3 Eosinophils # (Auto) 0.2 0.0-0.3 10^3/uL Basophils # (Auto) 0.0 0.0-0.1 10^3/uL Sodium Level 140 135-145 MMOL/L Potassium Level 3.9 3.6-5.0 MMOL/L Chloride Level 110 H 98-107 MMOL/L Carbon Dioxide Level 22 21-32 MMOL/L Anion Gap 8 5-14 MMOL/L Blood Urea Nitrogen 13 7-18 MG/DL Creatinine 0.75 0.60-1.30 MG/DL Estimat Glomerular Filtration Rate > 60 BUN/Creatinine Ratio 17 Glucose Level 90 70-105 MG/DL Calcium Level 9.8 8.5-10.1 MG/DL Corrected Calcium 9.4 8.5-10.1 MG/DL Total Bilirubin 0.2 0.1-1.0 MG/DL Aspartate Amino Transf (AST/SGOT) 17 5-34 U/L Alanine Aminotransferase (ALT/SGPT) 21 0-55 U/L Alkaline Phosphatase 40 40-136 U/L Total Protein 7.0 6.4-8.2 GM/DL Albumin 4.5 3.2-4.5 GM/DL Micro Results Microbiology 08/22/18 Influenza Types A,B Antigen (YOVANI) - Final, Complete My Orders Orders - ABBI KNXO Cbc With Automated Diff (08/22/18 16:20) Comprehensive Metabolic Panel (08/22/18 16:20) Influenza A And B Antigens (08/22/18 16:20) Chest Pa/Lat (2 View) (08/22/18 16:20) Vital Signs/I&O 08/22/18 08/22/18 16:09 17:14 Temp 97.7 98.6 Pulse 100 77 Resp 18 16 B/P (MAP) 124/68 (86) 109/65 (80) Pulse Ox 98 O2 Delivery Nasal Cannula Capillary Refill : Less Than 3 Seconds Blood Pressure Mean: 86 Diagnostic Imaging Diagonstic Imaging: Xray Plain Films/CT/US/NM/MRI: chest Comments [id number] PHYSICIAN: ABBI KNOX CC: ABBI KNOX; KATHLEEN DOVE MD Page 1 of 1 RADIOLOGY REPORT [facility] [place] CC: ABBI KNOX; KATHLEEN DOVE MD Page 1 of 1 RAD[facility]OLOGY REPORT [facility] [id number] PT STATUS: REG ER : 1995 PHYSICIAN: ABBI KNOX ADMIT DATE: 08/22/18/ER Signed Date of Exam: 08/22/18 CHEST PA/LAT (2 VIEW) Indication: Cough for 3 weeks PA and lateral views of the chest obtained with comparison made study of 06/29/2018. FINDINGS: Heart size and pulmonary vascularity are within normal limits, and the lungs are clear, bilaterally. IMPRESSION: Unremarkable chest. Dictated by: Dictated on workstation # [id number] Dict: 08/22/181641 Trans: 08/22/181642 Interpreted by: KATHLEEN DOVE MD Electronically signed by: KATHLEEN DOVE MD 08/22/18 1643 Reviewed: Reviewed by Me Departure Impression Primary Impression: Bronchitis Disposition: 01 HOME, SELF-CARE Condition: Stable/Unchanged Departure-Patient Inst. Decision time for Depature: 16:49 Referrals: [facility] (PCP/Family) Primary Care Physician Patient Instructions: Acute Bronchitis in Adults Add. Discharge Instructions: Take medications as directed. Follow-up with her primary care provider within 1 week for recheck. Return back to the emergency room for worsening symptoms or concerns as needed. All discharge instructions reviewed with patient and/or family. Voiced understanding. Scripts Albuterol Sulfate (VENTOLIN HFA) 1 Puff Puff 2 PUFF IH Q4H PRN for COUGH, #1 INHALER 1 PUFF = 90 MCG Prov: ABBI KNOX 08/22/18 Promethazine/Dextromethorphan (Promethazine-Dm Syrup) 473 Ml Syrup 5 ML PO Q4H PRN for COUGH, #60 ML Prov: ABBI KNOX 08/22/18 Azithromycin (Zithromax) 250 Mg Tablet 250 MG PO UD, #6 TAB TAKE 2 TABLETS TODAY, THEN TAKE 1 TABLET DAILY FOR 4 MORE DAYS Prov: ABBI KNOX 08/22/18 Methylprednisolone (Medrol) 4 Mg Tab.ds.pk 4 MG PO UD, #1 PKG Prov: ABBI KNOX 08/22/18 Work/School Note: Work Release Form Date Seen in the Emergency Department: Aug 22, 2018 Return to Work: Aug 24, 2018 Restrictions: No Restrictions ABBI KNOX Aug 22, 2018 16:51
[2018-08-22 17:14] VITALS: BP 109/65
--- NOTE | 2018-08-22 17:15 | NUR ---
PATIENT WAS ADVISED PRESCRIPTIONS WERE TRANSMITTED TO [facility]. WORK NOTE GIVEN TO PATIENT. PATIENT HAD NO RESPIRATORY DISTRESS PRESENT AT TIME OF DISCHARGE. VITAL SIGNS STABLE.
== END 2018-08-22 17:16 | disposition home or self-care (01) ==
LOC: EDUNIT# 16:03 → ER 16:06
DX: J40 Bronchitis, not specified as acute or chronic (principal); F41.9 Anxiety disorder, unspecified; F31.9 Bipolar disorder, unspecified; F14.10 Cocaine abuse, uncomplicated; F15.10 Other stimulant abuse, uncomplicated; F12.10 Cannabis abuse, uncomplicated; F19.10 Other psychoactive substance abuse, uncomplicated; Z86.19 Personal history of other infectious and parasitic diseases; Z79.51 Long term (current) use of inhaled steroids; Z79.52 Long term (current) use of systemic steroids; Z90.89 Acquired absence of other organs; Z87.448 Personal history of other diseases of urinary system; Z87.19 Personal history of other diseases of the digestive system
CPT/HCPCS: 36415; 71046; 80053; 85025; 87804

== ENCOUNTER 2018-09-23 16:03 | Emergency (ER) | payer SELFPAY ==
[~2018-09-23] VITALS: Ht 167.6 cm; Wt 68.0 kg
[~2018-09-23 16:03] MED LIST changes: +AZIT250T PO; +D-ME473S38 PO; +METH4TAB PO; +RT-ALBUINH IH
[2018-09-23] MEDS ORDERED: VALA1000 PO (16:29)
[2018-09-23] MEDS ORDERED: ACHD5005 PO (16:29)
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
[2018-09-23 16:44] VITALS: BP 112/68
== END 2018-09-23 16:44 | disposition home or self-care (01) ==
LOC: EDUNIT# 16:03 → ER 16:04
DX: B02.9 Zoster without complications (principal); F14.10 Cocaine abuse, uncomplicated; F15.10 Other stimulant abuse, uncomplicated; F19.10 Other psychoactive substance abuse, uncomplicated; F41.9 Anxiety disorder, unspecified; F31.9 Bipolar disorder, unspecified; Z77.22 Contact with and (suspected) exposure to environmental tobacco smoke (acute) (chronic); Z87.448 Personal history of other diseases of urinary system; Z86.19 Personal history of other infectious and parasitic diseases; Z87.19 Personal history of other diseases of the digestive system; Z90.89 Acquired absence of other organs; Z79.52 Long term (current) use of systemic steroids; Z79.51 Long term (current) use of inhaled steroids
CPT/HCPCS: 99282

== ENCOUNTER 2018-11-01 09:36 | Emergency (ER) | payer SELFPAY ==
[~2018-11-01] VITALS: Ht 175.3 cm; Wt 72.6 kg
[~2018-11-01 09:36] MED LIST changes: +ACHD5005 PO; +VALA1000 PO
--- OUTSIDE RECORDS SUMMARY | 2018-11-01 09:41 | XMS REPORT ---
Author Author Migration, Doctor Organization [facility] Address Unknown Phone Unavailable Care Team Providers Care Whitewasher Name Role Phone Migration, Doctor Unavailable Unavailable PROBLEMS Type Condition ICD9-CM Code YCR82-BC Code Onset Dates Condition Status SNOMED Code Problem IBS (irritable bowel syndrome) K58.9 Active 55115738 Problem PCOS (polycystic ovarian syndrome) E28.2 Active 20893345 Problem Irregular menses N92.6 Active 68838902 Problem Unspecified mood [affective] disorder F39 Active 710860975 Problem Generalized anxiety disorder F41.1 Active 96224027 Problem Other chronic pain G89.29 Active 99132666 Problem Tobacco abuse counseling Z71.6 Active 916124704 Problem Abnormal uterine bleeding N93.9 Active 83145872075991 Problem Tobacco abuse Z72.0 Active 52536294 Problem Chronic posttraumatic stress disorder F43.12 Active 600169561 Problem History of drug dependence/abuse F19.21 Active 753847140 Problem PTSD (post-traumatic stress disorder) F43.10 Active 87242157 Problem Bipolar II disorder F31.81 Active 57992590 ALLERGIES No Information ENCOUNTERS Encounter Location Date Diagnosis [place] [id number] [place] [address] 73622- 1479 Sep, Abnormal uterine bleeding N93.9 [place] [id number] [place] [address] 45417- 7690 Aug, High risk heterosexual behavior Z72.51 ; Acute cystitis with hematuria N30.01 and Irregular menses N92.6 [place] [id number] [place] [address] 70634- 3179 14 Aug, 2018 Abnormal uterine bleeding N93.9 and Tobacco abuse Z72.0 [place] [id number] [place] [address] 52512- 4758 13 Aug, 2018 Abnormal uterine bleeding N93.9 and Tobacco abuse Z72.0 [place] [id number] [place] [address] 91380- 1098 11 Aug, 2018 Viral gastroenteritis A08.4 [facility] [address] [id number] 6838 06 Aug, 2018 Frequency of urination R35.0 ; Vaginal discharge N89.8 and Screening for cervical cancer Z12.4 [place] [address] 78311- 0276 27 May, 2018 Bronchitis J40 [facility] [address] 13904- 2975 11 May, 2018 [place] [address] 57313- 8516 May, [place] [address] 78874- 8235 May, [place] [address] 21275- 4866 May, [facility] [address] 94917- 4691 06 May, 2018 Concussion with loss of consciousness, initial encounter S06.0X9A [place] [id number] [place] [address] 46993- 7031 09 Mar, 2018 Upper respiratory infection, viral J06.9 and Dysuria R30.0 [facility] [id number] [place] [address] [id number] Mar, Dental examination Z01.20 [facility] [id number] [place] [address] [id number] Mar, Dental examination Z01.20 [facility] [address] [id number] Mar, Caries K02.9 [facility] [address] [id number] 13 Mar, 2018 Dental examination Z01.20 [facility] [address] [address] Dec, [place] [id number] [place] [address] 10170- 7275 Dec, [place] [id number] [place] [address] 30394- 9581 Nov, Irregular menses N92.6 ; Abnormal uterine bleeding N93.9 ; History of PCOS Z87.42 and History of unprotected sex Z72.51 [place] [id number] [place] [address] 87178- 4852 October, [place] [id number] [place] [address] 47055- 4528 October, Low back pain M54.5 ; Dysuria R30.0 ; Other chronic pain G89.29 and Routine gynecological examination Z01.419 [place] [id number] [place] [address] 63550- 0118 October, Dysuria R30.0 and Vaginal discharge N89.8 [place] [id number] [place] [address] 77113- 4399 Sep, Bipolar II disorder F31.81 ; PTSD (post-traumatic stress disorder) F43.10 ; Generalized anxiety disorder F41.1 and History of drug dependence/abuse F19.21 [place] [id number] [place] [address] 33403- 5875 Sep, Unspecified mood [affective] disorder F39 and Post- traumatic stress disorder, unspecified F43.10 [place] [id number] [place] [address] 19066- 5528 Aug, PCOS (polycystic ovarian syndrome) E28.2 ; Recurrent major depressive disorder, in full remission F33.42 ; IBS (irritable bowel syndrome) K58.9 and Tobacco abuse Z72.0 [place] [id number] [place] [address] 86169- 8469 Aug, Generalized anxiety disorder F41.1 and Depressive disorder, not elsewhere classified F32.9 [place] [id number] [place] [address] 74900- 0385 Aug, PCOS (polycystic ovarian syndrome) E28.2 ; Recurrent major depressive disorder, in full remission F33.42 ; IBS (irritable bowel syndrome) K58.9 ; Tobacco abuse Z72.0 ; Tobacco abuse counseling Z71.6 ; Dysuria R30.0 ; Irregular menses N92.6 ; Vaginal candidiasis B37.3 and Acute cystitis without hematuria N30.00 [place] [id number] [place] [address] 81504- 0947 May, [place] [address] 88080- 3739 18 Mar, 2017 Vaginal discharge N89.8 and Recurrent candidiasis of vagina B37.3 [place] [address] 44046- 8018 13 Mar, 2017 Nausea and vomiting in adult R11.2 ; Sore throat J02.9 and Diarrhea, unspecified type R19.7 [place] [id number] [place] [address] 70413- 6484 11 Mar, 2017 [place] [id number] [place] [address] 18450- 0036 14 Jan, 2017 Vaginal discharge N89.8 ; Dysuria R30.0 ; High risk sexual behavior Z72.51 ; Major depressive disorder, single episode F32.9 and Vaginal candidiasis B37.3 [place] [id number] [place] [address] 94441- 1175 Jan, Anxiety F41.9 [place] [address] 33901- 8676 Dec, [place] [address] 40916- 9491 Nov, Generalized anxiety disorder F41.1 ; Depressive disorder, not elsewhere classified F32.9 ; History of drug dependence/abuse F19.21 and 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 [place] [address] 44419- 7894 Nov, Vaginal discharge N89.8 ; High risk sexual behavior Z72.51 ; Potential exposure to STD Z20.2 and Vaginal candidiasis B37.3 [place] [address] 42553- 2557 Nov, History of drug dependence/abuse F19.21 and Major depressive disorder, single episode F32.9 [place] [address] 61777- 6584 Nov, Right medial knee pain M25.561 [place] [address] 34592- 1754 October, Nausea and vomiting, intractability of vomiting not specified, unspecified vomiting type R11.2 and Acute pyelonephritis N10 [place] [address] 90643- 1751 Sep, Major depressive disorder, single episode F32.9 ; Alcohol abuse F10.10 and Tobacco abuse Z72.0 [place] [address] 70193- 7382 Sep, Major depressive disorder, single episode F32.9 ; Alcohol abuse F10.10 and History of drug dependence/abuse F19.21 [place] [id number] [place] [address] 06414- 7991 Sep, Major depressive disorder, single episode F32.9 [facility] [id number] [place] [address] 02967 -1775 Aug, Acute cystitis with hematuria N30.01 and Dysuria R30.0 [place] [address] 23825- 2919 Aug, Dysuria R30.0 ; Vaginal candidiasis B37.3 ; Vaginal discharge N89.8 and High risk sexual behavior Z72.51 [place] [id number] [place] [address] 99819- 0562 Jul, [facility] [address] 43719- 4487 Jul, Major depressive disorder, single episode F32.9 ; History of drug dependence/abuse F19.21 ; Alcohol abuse F10.10 and Tobacco abuse Z72.0 [facility] [id number] [place] [address] [id number] May, Dental examination Z01.20 and Dental caries K02.9 [place] [address] 40377- 3708 May, Fatigue, unspecified type R53.83 and Cough R05 [facility] [id number] [place] [address] 55704- 3617 May, [place] [address] 35530- 7968 Mar, [facility] [id number] [place] [address] 98370- 0937 Mar, [place] [address] 10974- 7289 Mar, [facility] [id number] [place] [address] 79819- 4355 Mar, [place] [id number] [place] [address] 91891- 0882 Mar, Absence of menstruation N91.2 ; Vagina itching L29.8 ; History of drug dependence/abuse F19.21 ; History of PID Z87.42 and Acute cystitis without hematuria N30.00 [facility] [id number] [place] [address] 06543- 6717 Sep, Routine health maintenance Z00.00 ; Late menses N91.0 ; History of drug dependence/abuse F19.21 ; Alcohol abuse F10.10 ; Tobacco abuse Z72.0 ; Tobacco abuse counseling Z71.6 and Back pain M54.9 [facility] [address] [id number] 18 Aug, 2015 Dental examination Z01.20 and Dental caries K02.9 [place] [id number] [place] [address] 00913- 9052 26 Jul, 2015 [place] [id number] [place] [address] 88042- 8419 14 Jul, 2015 Surveillance of contraceptive injection Z30.42 [place] [id number] [place] [address] 71898- 4013 13 Jul, 2015 Routine screening for STI (sexually transmitted infection) Z11.3 ; Drug use F19.90 ; Counseling on substance use and abuse Z71.89 ; Unprotected sexual intercourse Z72.51 ; Encounter for counseling regarding contraception Z30.9 ; Vaginal discharge N89.8 and Skin lesions L98.9 [place] [id number] [place] [address] 96040- 1199 30 May, 2015 [place] [id number] [place] [address] 18768- 3706 May, Yeast infection B37.9 [place] [id number] [place] [address] 04401- 6088 19 May, 2015 Excessive and frequent menstruation with irregular cycle N92.1 ; Other fatigue R53.83 ; General counseling and advice for contraceptive management Z30.09 ; Evaluation for contraceptive injection Z30.013 ; Cough R05 ; Vaginal irritation N89.8 and Dizziness R42 [place] [address] [place] [address] 37759- 3462 Sep, [address] 86322- 1849 Sep, [place] [id number] [place] [address] 04053- 1603 Aug, [place] [id number] [place] [address] 18198- 8173 Aug, [facility] [address] [id number] [place] [address]- 4214 Aug, [facility] [place] [facility] [address] [id number] [place] [address]- 9762 Aug, [facility] [place] [facility] [address] [id number] [place] [address]- 4805 Aug, [facility] [place] [facility] [address] [id number] [place] [address]- 2734 Aug, [facility] [place] [facility] [address] [id number] [place] [address]- 0960 Aug, [facility] [place] [facility] [address] [id number] [place] [address]- 8825 Aug, [facility] [place] [facility] [address] [id number] [place] [address]- 3199 Aug, [facility] [place] [facility] [address] [id number] [place] [address]- 5759 Aug, [facility] [place] [facility] [address] [id number] [place] [address]- 7247 Aug, [facility] [place] [facility] [address] [id number] [place] [address]- 8483 Aug, [facility] [place] [facility] [address] [id number] [place] [address]- 5129 Jul, [facility] [place] [facility] [address] [id number] [address]- 0123 Jul, [facility] [place] [facility] [address] [id number] [place] [address]- 0969 May, [facility] [place] [facility] [address] [id number] [place] [address]- 4485 May, [facility] [place] [facility] [address] [id number] [place] [address]- 9174 May, [facility] [place] [facility] [address] [id number] [place] [address]- 4935 May, [facility] [place] [facility] [address] [id number] [place] [address]- 7075 Mar, [facility] [place] [facility] [address] [id number] [place] [address]- 9105 Mar, [facility] [place] [facility] [address] [id number] [place] [address]- 8731 Mar, [facility] [place] [facility] [address] [id number] [place] [address]- 7784 Mar, [facility] [place] [facility] [address] [id number] [place] [address]- 1649 Mar, [facility] [place] [facility] [address] [id number] [place] [address]- 5820 Mar, [facility] [place] [facility] [address] [id number] [place] [address]- 5598 Mar, [facility] [place] [facility] [address] [id number] [place] [address]- 2761 Mar, [facility] [place] [facility] [address] [id number] [place] [address]- 1228 Mar, [facility] [place] [facility] [address] [id number] [place] [address]- 3508 Mar, [facility] [place] [facility] [address] [id number] [place] [address]- 0340 Jan, [facility] [place] [facility] [address] [id number] [place] [address]- 0519 Jan, [facility] [place] [facility] [address] [id number] [place] [address]- 9971 Nov, [facility] [place] [facility] [address] [id number] [place] [address]- 9200 Nov, [facility] [place] [facility] [address] [id number] [place] [address]- 4107 October, [facility] [place] [facility] [address] [id number] [place] [address]- 2835 October, [facility] [place] [facility] [address] [id number] [place] [address]- 7258 October, [facility] [place] [facility] [address] [id number] [place] [address]- 1075 October, [facility] [place] [facility] [address] [id number] [place] [address]- 3485 October, [facility] [place] [facility] [address] [id number] [place] [address]- 1496 October, [facility] [place] [facility] [address] [id number] [place] [address]- 1287 October, [facility] [place] [facility] [address] [id number] [place] [address]- 0949 October, [facility] [place] [facility] [address] [id number] [place] [address]- 4490 Sep, [facility] [place] [facility] [address] [id number] [place] [address]- 3236 Sep, [facility] [place] [facility] [address] [id number] [place] [address]- 2153 Aug, [facility] [place] [facility] [address] [id number] [place] [address]- 9967 Aug, [facility] [place] [facility] [address] [id number] [place] [address]- 4517 Aug, [facility] [place] [facility] [address] [id number] [place] [address]- 1937 Aug, [facility] [place] [facility] [address] [id number] [place] 9220 May, [facility] [place] [facility] [address] [id number] [place] [address]- 8759 May, [facility] [place] [facility] [address] [id number] [place] [address]- 3843 May, [facility] [place] [facility] [address] [id number] [place] [address]- 6554 May, [facility] [place] [facility] [address] [id number] [place] [address]- 5014 May, [facility] [place] [facility] [address] [id number] [place] [address]- 3142 May, [facility] [place] [facility] [address] [id number] [place] [address]- 1422 May, [facility] [place] [facility] [address] [id number] [place] [address]- 5718 May, [facility] [place] [facility] [address] [id number] [place] [address]- 4894 Mar, [facility] [place] [facility] [address] [id number] [place] [address]- 1593 Mar, [facility] [place] [facility] [address] [id number] [place] [address]- 0676 Mar, [facility] [place] [facility] [address] [id number] [place] [address]- 2062 Jan, [facility] [place] [facility] [address] [id number] [place] [address]- 2251 Jan, [facility] [place] [facility] [address] [id number] [place] [address]- 3407 Dec, [facility] [place] [facility] [address] [id number] [place] [address]- 2939 Dec, [facility] [place] [facility] [address] [id number] [place] [address]- 8266 Dec, [facility] [place] [facility] [address] [id number] [place] [address]- 5259 Sep, [facility] [place] [facility] [address] [id number] [place] [address]- 8738 Aug, [facility] [place] [facility] [address] [id number] [place] [address]- 0702 21 Aug, 2012 [facility] [address] [id number] [place] [address]- 1368 18 Aug, 2012 [facility] [place] [facility] [address] [id number] [place] [address]- 9746 15 Aug, 2012 [facility] [address] [id number] [place] [address]- 4088 14 Aug, 2012 [facility] [place] [facility] [address] [id number] [place] [address]- 5207 11 Aug, 2012 [facility] [address] [id number] [place] [address]- 8485 16 Jul, 2012 [facility] [address] [id number] [place] [address]- 5628 15 Jul, 2012 [facility] [address] [id number] [place] [address]- 3825 07 Jul, 2012 [facility] [address] [id number] [place] [address]- 3181 04 Jul, 2012 [facility] [address] [id number] [place] [address]- 7077 Jul, [facility] [address] [id number] [place] [address]- 1063 Jul, [facility] [address] [id number] [place] [address]- 7639 May, [facility] [address] [id number] [place] [address]- 6586 May, [facility] [place] [facility] [address] [id number] [place] [address]- 3396 May, [facility] [place] [facility] [address] [id number] [place] [address]- 2546 May, [facility] [place] [facility] [address] [id number] [place] [address]- 6454 15 May, 2012 [facility] [place] [facility] [address] [id number] [place] [address]- 9605 15 May, 2012 [facility] [place] [facility] [address] [id number] [place] [address]- 5013 Mar, [facility] [place] [facility] [address] [id number] [place] [address]- 8175 Mar, [facility] [place] [facility] [address] [id number] [place] [address]- 7589 Mar, [facility] [place] [facility] [address] [id number] [place] [address]- 0514 Mar, [facility] [place] [facility] [address] [id number] [place] [address]- 1743 Mar, [facility] [place] [facility] [address] [facility] [id number] [place] [address]- 8555 Mar, [facility] [place] [facility] [address] [id number] [place] [address]- 5419 Mar, [facility] [place] [facility] [address] [id number] [place] [address]- 5281 Dec, [facility] [place] [facility] [address] [id number] [place] [address]- 7316 Nov, [facility] [place] [facility] [address] [id number], [place] [address]- 2224 Sep, [facility] [place] [facility] [address] [id number], [place] [address]- 7255 29 Aug, 2011 [facility] [place] [facility] [address] [id number] [place] [address]- 5569 Aug, [facility] [place] [facility] [address] [id number] [place] [address]- 5668 Aug, [facility] [place] [facility] [address] [id number] [place] [address]- 6476 Aug, [facility] [place] [facility] [address] [id number] [place] [address]- 9846 16 Aug, 2011 [facility] [place] [facility] [address] [id number] [place] [address]- 0082 Aug, [facility] [place] [facility] [address] [id number] [place] [address]- 9864 Jul, [facility] [place] [facility] [address] [id number] [place] [address]- 4578 Jul, [facility] [place] [facility] [address] [id number] [place] [address] Jul, [facility] [place] [facility] [address] [id number] [place] [address] May, [facility] [place] [facility] [address] [id number] [place] [address] May, [facility] [place] [facility] [address] [id number] [place] [address] Mar, [facility] [place] [facility] [address] [id number] [place] [address] 24 Mar, 2011 [facility] [place] [facility] [address] [id number] [place] [address] Mar, [facility] [place] [facility] [address] [id number] [place] [address] Mar, [facility] [place] [facility] [address] [id number] [place] [address] Dec, [facility] [place] [facility] [address] [id number] [place] [address] 14 May, 2010 [facility] [place] [facility] [address] [id number] [place] [address] May, [facility] [place] [facility] [address] [id number] [place] [address] May, [facility] [place] [facility] [address] [id number] [place] [address] 14 Mar, 2010 [facility] [address] [facility] [id number] [address] 14 Mar, 2010 [facility] [id number], [place] [address] Jan, [facility] [id number], [place] [address] Aug, [facility] [id number], [place] [address] May, [facility] [address] [facility] [id number], [place] [address] May, [facility] [id number], [place] [address] May, [facility] [id number], [place] [address] May, [facility] [id number], [place] [address] May, [facility] [id number], [place] [address] Mar, [facility] [id number], [place] [address] Jul, [facility] [id number], [place] [address] May, [facility] [id number], [place] [address] Mar, [facility] [id number], [place] [address] Sep, [facility] [id number], [place] [address] Jul, IMMUNIZATIONS No Known Immunizations SOCIAL HISTORY Never Assessed [place] [place] VITAL SIGNS MEDICATIONS Unknown [...]
--- OUTSIDE RECORDS SUMMARY | 2018-11-01 09:42 | XMS REPORT ---
Author Author Migration, Doctor Organization [facility] Address Unknown Phone Unavailable Care Team Providers Care Solar Sales Ambassador Name Role Phone Migration, Doctor Unavailable Unavailable PROBLEMS Type Condition ICD9-CM Code SLA26-UC Code Onset Dates Condition Status SNOMED Code Problem IBS (irritable bowel syndrome) K58.9 Active 98559517 Problem PCOS (polycystic ovarian syndrome) E28.2 Active 22436053 Problem Irregular menses N92.6 Active 50543463 Problem Unspecified mood [affective] disorder F39 Active 496060984 Problem Generalized anxiety disorder F41.1 Active 75544861 Problem Other chronic pain G89.29 Active 39484482 Problem Tobacco abuse counseling Z71.6 Active 422353968 Problem Abnormal uterine bleeding N93.9 Active [id number] Problem Tobacco abuse Z72.0 Active 13144844 Problem Chronic posttraumatic stress disorder F43.12 Active 000272416 Problem History of drug dependence/abuse F19.21 Active 003947783 Problem PTSD (post-traumatic stress disorder) F43.10 Active 81183405 Problem Bipolar II disorder F31.81 Active 04135200 ALLERGIES No Information ENCOUNTERS Encounter Location Date Diagnosis [facility] [id number] [place] [address] 09634- 6336 Sep, Abnormal uterine bleeding N93.9 [facility] [id number] [place] [address] 55742- 3874 Aug, High risk heterosexual behavior Z72.51 ; Acute cystitis with hematuria N30.01 and Irregular menses N92.6 [facility] [id number] [place] [address] 87920- 8876 14 Aug, 2018 Abnormal uterine bleeding N93.9 and Tobacco abuse Z72.0 [facility] [id number] [place] [address] 03726- 8584 13 Aug, 2018 Abnormal uterine bleeding N93.9 and Tobacco abuse Z72.0 [place] [id number] [place] [address] 08770- 8580 11 Aug, 2018 Viral gastroenteritis A08.4 [facility] [place] [address] [id number]- 4605 06 Aug, 2018 Frequency of urination R35.0 ; Vaginal discharge N89.8 and Screening for cervical cancer Z12.4 [facility] [address] 8[address]11- 6310 27 May, 2018 Bronchitis J40 [facility] [place] [address] 74356- 3420 11 May, 2018 [facility] [address] 31558- 6236 May, [facility] [address] 15332- 9124 May, [facility] [address] 06761- 1822 May, [facility] [place] [address] 82023- 8574 06 May, 2018 Concussion with loss of consciousness, initial encounter S06.0X9A [facility] [id number] [place] [address] 68742- 6080 09 Mar, 2018 Upper respiratory infection, viral J06.9 and Dysuria R30.0 [facility] [id number] [place] [address] [id number] Mar, Dental examination Z01.20 [facility] [id number] [place] [address] [id number] Mar, Dental examination Z01.20 [facility] [address] [id number] Mar, Caries K02.9 [facility] [address] [id number] 13 Mar, 2018 Dental examination Z01.20 [facility] [place] [address] [address] 2871 Dec, [facility] [id number] [address] 88342- 0219 Dec, [facility] [id number] [place] [address] 53967- 5114 Nov, Irregular menses N92.6 ; Abnormal uterine bleeding N93.9 ; History of PCOS Z87.42 and History of unprotected sex Z72.51 [facility] [id number] [place] [address] 36412- 7423 October, [facility] [id number] [place] [address] 17624- 3891 October, Low back pain M54.5 ; Dysuria R30.0 ; Other chronic pain G89.29 and Routine gynecological examination Z01.419 [facility] [id number] [place] [address] 54065- 0180 October, Dysuria R30.0 and Vaginal discharge N89.8 [facility] [id number] [place] [address] 36271- 4292 Sep, Bipolar II disorder F31.81 ; PTSD (post-traumatic stress disorder) F43.10 ; Generalized anxiety disorder F41.1 and History of drug dependence/abuse F19.21 [facility] [address] [place] [address] 02678- 7553 Sep, Unspecified mood [affective] disorder F39 and Post- traumatic stress disorder, unspecified F43.10 [facility] [address] [place] [address] 59052- 6603 Aug, PCOS (polycystic ovarian syndrome) E28.2 ; Recurrent major depressive disorder, in full remission F33.42 ; IBS (irritable bowel syndrome) K58.9 and Tobacco abuse Z72.0 [facility] [address] [place] [address] 60681- 5628 Aug, Generalized anxiety disorder F41.1 and Depressive disorder, not elsewhere classified F32.9 [facility] [id number] [place] [address] 95844- 9404 Aug, PCOS (polycystic ovarian syndrome) E28.2 ; Recurrent major depressive disorder, in full remission F33.42 ; IBS (irritable bowel syndrome) K58.9 ; Tobacco abuse Z72.0 ; Tobacco abuse counseling Z71.6 ; Dysuria R30.0 ; Irregular menses N92.6 ; Vaginal candidiasis B37.3 and Acute cystitis without hematuria N30.00 [facility] [id number] [place] [address] 52120- 1749 May, [facility] [facility] [address] 21516- 2678 18 Mar, 2017 Vaginal discharge N89.8 and Recurrent candidiasis of vagina B37.3 [facility] [address] 71552- 2216 13 Mar, 2017 Nausea and vomiting in adult R11.2 ; Sore throat J02.9 and Diarrhea, unspecified type R19.7 [facility] [id number] [place] [address] 07135- 9671 11 Mar, 2017 [facility] [id number] [place] [address] 63383- 1229 14 Jan, 2017 Vaginal discharge N89.8 ; Dysuria R30.0 ; High risk sexual behavior Z72.51 ; Major depressive disorder, single episode F32.9 and Vaginal candidiasis B37.3 [facility] [id number] [place] [address] 69140- 8500 Jan, Anxiety F41.9 [facility] [address] 49490- 7148 Dec, [facility] [address] 88437- 8675 Nov, Generalized anxiety disorder F41.1 ; Depressive disorder, not elsewhere classified F32.9 ; History of drug dependence/abuse F19.21 and 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 [facility] [address] 76088- 8794 Nov, Vaginal discharge N89.8 ; High risk sexual behavior Z72.51 ; Potential exposure to STD Z20.2 and Vaginal candidiasis B37.3 [facility] [address] 51588- 1633 Nov, History of drug dependence/abuse F19.21 and Major depressive disorder, single episode F32.9 [facility] [address] 19348- 7506 Nov, Right medial knee pain M25.561 [facility] [address] 24865- 0044 October, Nausea and vomiting, intractability of vomiting not specified, unspecified vomiting type R11.2 and Acute pyelonephritis N10 [facility] [facility] [address] 45603- 1134 Sep, Major depressive disorder, single episode F32.9 ; Alcohol abuse F10.10 and Tobacco abuse Z72.0 [facility] [address] 83953- 0205 Sep, Major depressive disorder, single episode F32.9 ; Alcohol abuse F10.10 and History of drug dependence/abuse F19.21 [facility] [id number] [place] [address] 62843- 2879 Sep, Major depressive disorder, single episode F32.9 [facility] [id number] [place] [address] 98232 -2260 Aug, Acute cystitis with hematuria N30.01 and Dysuria R30.0 [facility] [address] 87764- 0920 Aug, Dysuria R30.0 ; Vaginal candidiasis B37.3 ; Vaginal discharge N89.8 and High risk sexual behavior Z72.51 [facility] [place] [id number] [place] [address] 94684- 1858 Jul, [facility] [place] [address] 66438- 8102 Jul, Major depressive disorder, single episode F32.9 ; History of drug dependence/abuse F19.21 ; Alcohol abuse F10.10 and Tobacco abuse Z72.0 [facility] [id number] [place] [address] [id number] May, Dental examination Z01.20 and Dental caries K02.9 [facility] [facility] [address] 46188- 7971 May, Fatigue, unspecified type R53.83 and Cough R05 [facility] [place] [id number] [place] [address] 71085- 5151 May, [facility] [address] 08138- 7481 Mar, [facility] [place] [id number] [place] [address] 24987- 3780 Mar, [facility] [facility] [address] 60705- 7994 Mar, [facility] [place] [id number] [place] [address] 17309- 9962 Mar, [facility] [id number] [place] [address] 20562- 1954 Mar, Absence of menstruation N91.2 ; Vagina itching L29.8 ; History of drug dependence/abuse F19.21 ; History of PID Z87.42 and Acute cystitis without hematuria N30.00 [facility] [place] [id number] [place] [address] 11971- 4644 Sep, Routine health maintenance Z00.00 ; Late menses N91.0 ; History of drug dependence/abuse F19.21 ; Alcohol abuse F10.10 ; Tobacco abuse Z72.0 ; Tobacco abuse counseling Z71.6 and Back pain M54.9 [facility] [address] [id number] 18 Aug, 2015 Dental examination Z01.20 and Dental caries K02.9 [facility] [place] [id number] [place] [address] 64960- 6410 26 Jul, 2015 [facility] [id number] [place] [address] 83596- 1024 14 Jul, 2015 Surveillance of contraceptive injection Z30.42 [place] [id number] [place] [address] 69015- 7784 13 Jul, 2015 Routine screening for STI (sexually transmitted infection) Z11.3 ; Drug use F19.90 ; Counseling on substance use and abuse Z71.89 ; Unprotected sexual intercourse Z72.51 ; Encounter for counseling regarding contraception Z30.9 ; Vaginal discharge N89.8 and Skin lesions L98.9 [place] [id number] [place] [address] 29400- 5217 30 May, 2015 [place] [id number] [place] [address] 09887- 1406 May, Yeast infection B37.9 [place] [id number] [place] [address] 42691- 0133 19 May, 2015 Excessive and frequent menstruation with irregular cycle N92.1 ; Other fatigue R53.83 ; General counseling and advice for contraceptive management Z30.09 ; Evaluation for contraceptive injection Z30.013 ; Cough R05 ; Vaginal irritation N89.8 and Dizziness R42 [facility] [address] [place] [address] 02403- 1580 Sep, [address] 36176- 1901 Sep, [facility] [id number] [place] [address] 94704- 7018 Aug, [place] [id number] [place] [address] 08733- 8900 Aug, [facility] [address] [id number] [place] [address]- 3783 Aug, [facility] [place] [facility] [address] [id number] [place] [address]- 1215 Aug, [facility] [place] [facility] [address] [id number] [place] [address]- 4435 Aug, [facility] [place] [facility] [address] [id number] [place] [address]- 6457 Aug, [facility] [place] [facility] [address] [id number] [place] [address]- 2906 Aug, [facility] [place] [facility] [address] [id number] [place] [address]- 2183 Aug, [facility] [place] [facility] [address] [id number] [place] [address]- 8131 Aug, [facility] [place] [facility] [address] [id number] [place] [address]- 4731 Aug, [facility] [place] [facility] [address] [id number] [place] [address]- 8521 Aug, [facility] [place] [facility] [address] [id number] [place] [address]- 2694 Aug, [facility] [place] [facility] [address] [id number] [place] [address]- 6449 Jul, [facility] [place] [facility] [address] [id number] [address]- 0531 Jul, [facility] [place] [facility] [address] [id number] [place] [address]- 5382 May, [facility] [place] [facility] [address] [id number] [place] [address]- 7459 May, [facility] [place] [facility] [address] [id number] [place] [address]- 3091 May, [facility] [place] [facility] [address] [id number] [place] [address]- 5883 May, [facility] [place] [facility] [address] [id number] [place] [address]- 0584 Mar, [facility] [place] [facility] [address] [id number] [place] [address]- 4470 Mar, [facility] [place] [facility] [address] [id number] [place] [address]- 8146 Mar, [facility] [place] [facility] [address] [id number] [place] [address]- 3476 Mar, [facility] [place] [facility] [address] [id number] [place] [address]- 3298 Mar, [facility] [place] [facility] [address] [id number] [place] [address]- 0706 Mar, [facility] [place] [facility] [address] [id number] [place] [address]- 1639 Mar, [facility] [place] [facility] [address] [id number] [place] [address]- 1932 Mar, [facility] [place] [facility] [address] [id number] [place] [address]- 3004 Mar, [facility] [place] [facility] [address] [id number] [place] [address]- 9591 Mar, [facility] [place] [facility] [address] [id number] [place] [address]- 3012 Jan, [facility] [place] [facility] [address] [id number] [place] [address]- 6091 Jan, [facility] [place] [facility] [address] [id number] [place] [address]- 2774 Nov, [facility] [place] [facility] [address] [id number] [place] [address]- 5658 Nov, [facility] [place] [facility] [address] [id number] [place] [address]- 1252 October, [facility] [place] [facility] [address] [id number] [place] [address]- 0040 October, [facility] [place] [facility] [address] [id number] [place] [address]- 6178 October, [facility] [place] [facility] [address] [id number] [place] [address]- 3744 October, [facility] [place] [facility] [address] [id number] [place] [address]- 9293 October, [facility] [place] [facility] [address] [id number] [place] [address]- 6044 October, [facility] [place] [facility] [address] [id number] [place] [address]- 8062 October, [facility] [place] [facility] [address] [id number] [place] [address]- 4847 October, [facility] [place] [facility] [address] [id number] [place] [address]- 9189 Sep, [facility] [place] [facility] [address] [id number] [place] [address]- 0849 Sep, [facility] [place] [facility] [address] [id number] [place] [address]- 6356 Aug, [facility] [place] [facility] [address] [id number] [place] [address]- 4048 Aug, [facility] [place] [facility] [address] [id number] [place] [address]- 8918 Aug, [facility] [place] [facility] [address] [id number] [place] [address]- 3171 Aug, [facility] [place] [facility] [address] [id number] [place] 9142 May, [facility] [place] [facility] [address] [id number] [place] [address]- 3835 May, [facility] [place] [facility] [address] [id number] [place] [address]- 4823 May, [facility] [place] [facility] [address] [id number] [place] [address]- 0005 May, [facility] [place] [facility] [address] [id number] [place] [address]- 4633 May, [facility] [place] [facility] [address] [id number] [place] [address]- 8191 May, [facility] [place] [facility] [address] [id number] [place] [address]- 8356 May, [facility] [place] [facility] [address] [id number] [place] [address]- 4264 May, [facility] [place] [facility] [address] [id number] [place] [address]- 4106 Mar, [facility] [place] [facility] [address] [id number] [place] [address]- 8550 Mar, [facility] [place] [facility] [address] [id number] [place] [address]- 0602 Mar, [facility] [place] [facility] [address] [id number] [place] [address]- 9954 Jan, [facility] [place] [facility] [address] [id number] [place] [address]- 8639 Jan, [facility] [place] [facility] [address] [id number] [place] [address]- 0450 Dec, [facility] [place] [facility] [address] [id number] [place] [address]- 8224 Dec, [facility] [place] [facility] [address] [id number] [place] [address]- 6254 Dec, [facility] [place] [facility] [address] [id number] [place] [address]- 1547 Sep, [facility] [place] [facility] [address] [id number] [place] [address]- 3202 Aug, [facility] [place] [facility] [address] [id number] [place] [address]- 5873 21 Aug, 2012 [facility] [address] [id number] [place] [address]- 9391 18 Aug, 2012 [facility] [place] [facility] [address] [id number] [place] [address]- 0996 15 Aug, 2012 [facility] [address] [id number] [place] [address]- 3291 14 Aug, 2012 [facility] [place] [facility] [address] [id number] [place] [address]- 8711 11 Aug, 2012 [facility] [address] [id number] [place] [address]- 0405 16 Jul, 2012 [facility] [address] [id number] [place] [address]- 2412 15 Jul, 2012 [facility] [address] [id number] [place] [address]- 8129 07 Jul, 2012 [facility] [address] [id number] [place] [address]- 3120 04 Jul, 2012 [facility] [address] [id number] [place] [address]- 7506 Jul, [facility] [address] [id number] [place] [address]- 6174 Jul, [facility] [address] [id number] [place] [address]- 6553 May, [facility] [address] [id number] [place] [address]- 5823 May, [facility] [place] [facility] [address] [id number] [place] May, [facility] [place] [facility] [address] [id number] [place] [address]- 2546 May, [facility] [place] [facility] [address] [id number] [place] [address]- 8253 15 May, 2012 [facility] [place] [facility] [address] [id number] [place] [address]- 7681 15 May, 2012 [facility] [place] [facility] [address] [id number] [place] [address]- 8324 Mar, [facility] [place] [facility] [address] [id number] [place] [address]- 7253 Mar, [facility] [place] [facility] [address] [id number] [place] [address]- 5316 Mar, [facility] [place] [facility] [address] [id number] [place] [address]- 6119 Mar, [facility] [place] [facility] [address] [id number] [place] [address]- 7251 Mar, [facility] [place] [facility] [address] [facility] [id number] [place] [address]- 2390 Mar, [facility] [place] [facility] [address] [id number] [place] [address]- 5973 Mar, [facility] [place] [facility] [address] [id number] [place] [address]- 0801 Dec, [facility] [place] [facility] [address] [id number] [place] [address]- 7207 Nov, [facility] [place] [facility] [address] [id number] [address] Sep, [facility] [place] [facility] [address] [id number] [place] [address]- 5703 29 Aug, 2011 [facility] [place] [facility] [address] [id number] [place] [address]- 9200 Aug, [facility] [place] [facility] [address] [id number] [place] [address]- 6736 Aug, [facility] [place] [facility] [address] [id number] [place] [address]- 2799 Aug, [facility] [place] [facility] [address] [id number] [place] [address] 16 Aug, 2011 [facility] [place] [facility] [address] [id number] [place] [address] Aug, [facility] [place] [facility] [address] [id number] [place] [address] Jul, [facility] [place] [facility] [address] [id number] [place] [address] Jul, [facility] [place] [facility] [address] [id number] [place] [address] Jul, [facility] [place] [facility] [address] [id number] [place] [address] May, [facility] [place] [facility] [address] [id number] [place] [address] May, [facility] [place] [facility] [address] [id number] [place] [address] Mar, [facility] [place] [facility] [address] [id number] [place] [address] 24 Mar, 2011 [facility] [place] [facility] [address] [id number] [place] [address] Mar, [facility] [place] [facility] [address] [id number] [place] [address] Mar, [facility] [place] [facility] [address] [id number] [place] [address] Dec, [facility] [place] [facility] [address] [id number] [place] [address] 14 May, 2010 [facility] [place] [facility] [address] [id number] [place] [address] May, [facility] [place] [facility] [address] [id number] [place] [address] May, [facility] [place] [facility] [address] [id number] [place] [address] 14 Mar, 2010 [facility] [place] [address] [facility] [id number] [address] 14 Mar, 2010 [facility] [place] [id number] [address] Jan, [facility] [place] [id number] [address] Aug, [facility] [place] [id number] [address] May, [facility] [place] [address] [facility] [id number] [address] May, [facility] [place] [id number] [address] May, [facility] [place] [id number] [address] May, [facility] [place] [id number] [address] May, [facility] [place] [id number] [address] Mar, [facility] [place] [id number] [address] Jul, [facility] [place] [id number] [address] May, [facility] [place] [id number] [address] Mar, [facility] [place] [id number] [address] Sep, [facility] [place] [id number] [address] Jul, IMMUNIZATIONS No Known Immunizations SOCIAL HISTORY Never Assessed REASON FOR VISIT [place] [place] VITAL SIGNS MEDICATIONS Unknown [...]
--- OUTSIDE RECORDS SUMMARY | 2018-11-01 09:42 | XMS REPORT ---
Author Author Migration, Doctor Organization [facility] Address Unknown Phone Unavailable Care Team Providers Care In School Suspension Aide Name Role Phone Migration, Doctor Unavailable Unavailable PROBLEMS Type Condition ICD9-CM Code GDU73-PM Code Onset Dates Condition Status SNOMED Code Problem IBS (irritable bowel syndrome) K58.9 Active 09909874 Problem PCOS (polycystic ovarian syndrome) E28.2 Active 86133708 Problem Irregular menses N92.6 Active 53879137 Problem Unspecified mood [affective] disorder F39 Active 118069967 Problem Generalized anxiety disorder F41.1 Active 15266911 Problem Other chronic pain G89.29 Active 57505777 Problem Tobacco abuse counseling Z71.6 Active 795840274 Problem Abnormal uterine bleeding N93.9 Active [id number] Problem Tobacco abuse Z72.0 Active 03240221 Problem Chronic posttraumatic stress disorder F43.12 Active 134121220 Problem History of drug dependence/abuse F19.21 Active 569522632 Problem PTSD (post-traumatic stress disorder) F43.10 Active 83125277 Problem Bipolar II disorder F31.81 Active 82603682 ALLERGIES No Information ENCOUNTERS Encounter Location Date Diagnosis [place] [id number] [place] [address] 56721- 9018 Sep, Abnormal uterine bleeding N93.9 [place] [id number] [place] [address] 05491- 7101 Aug, High risk heterosexual behavior Z72.51 ; Acute cystitis with hematuria N30.01 and Irregular menses N92.6 [place] [id number] [place] [address] 34241- 6018 14 Aug, 2018 Abnormal uterine bleeding N93.9 and Tobacco abuse Z72.0 [place] [id number] [place] [address] 15516- 8403 13 Aug, 2018 Abnormal uterine bleeding N93.9 and Tobacco abuse Z72.0 [place] [id number] [place] [address] 80853- 0013 11 Aug, [address] [facility] [address] [id number]- 5412 06 Aug, 2018 Frequency of urination R35.0 ; Vaginal discharge N89.8 and Screening for cervical cancer Z12.4 [place] [address] 77391- 6693 27 May, [address] [facility] [address] 00648- 8735 11 May, 2018 [place] [address] 83136- 2466 May, [place] [address] 31467- 4565 May, [place] [address] 99397- 0450 May, [facility] [address] 60185- 5857 06 May, 2018 Concussion with loss of consciousness, initial encounter S06.0X9A [place] [id number] [place] [address] 33215- 8129 09 Mar, 2018 Upper respiratory infection, viral J06.9 and Dysuria R30.[address] [facility] [id number] [place] [address] [id number] Mar, Dental examination Z01.[address] [facility] [id number] [place] [address] [id number] Mar, Dental examination Z01.[address] [facility] [address] [id number] Mar, Caries K02.[address] [facility] [address] [id number] Mar, [address] [facility] [address] [address] Dec, [place] [id number] [place] [address] 24326- 5357 Dec, [place] [id number] [place] [address] 82182- 6148 Nov, Irregular menses N92.6 ; Abnormal uterine bleeding N93.9 ; History of PCOS Z87.42 and History of unprotected sex Z72.51 [place] [id number] [place] [address] 87104- 0921 October, [place] [id number] [place] [address] 89294- 5055 October, Low back pain M54.5 ; Dysuria R30.0 ; Other chronic pain G89.29 and Routine gynecological examination Z01.419 [place] [id number] [place] [address] 93252- 8025 October, Dysuria R30.0 and Vaginal discharge N89.8 [place] [id number] [place] [address] 34115- 2558 Sep, Bipolar II disorder F31.81 ; PTSD (post-traumatic stress disorder) F43.10 ; Generalized anxiety disorder F41.1 and History of drug dependence/abuse F19.21 [place] [address] [place] [address] 10434- 9811 Sep, Unspecified mood [affective] disorder F39 and Post- traumatic stress disorder, unspecified F43.10 [place] [address] [place] [address] 70596- 4823 Aug, PCOS (polycystic ovarian syndrome) E28.2 ; Recurrent major depressive disorder, in full remission F33.42 ; IBS (irritable bowel syndrome) K58.9 and Tobacco abuse Z72.0 [place] [address] [place] [address] 46025- 5582 Aug, Generalized anxiety disorder F41.1 and Depressive disorder, not elsewhere classified F32.9 [place] [id number] [place] [address] 13398- 6620 Aug, PCOS (polycystic ovarian syndrome) E28.2 ; Recurrent major depressive disorder, in full remission F33.42 ; IBS (irritable bowel syndrome) K58.9 ; Tobacco abuse Z72.0 ; Tobacco abuse counseling Z71.6 ; Dysuria R30.0 ; Irregular menses N92.6 ; Vaginal candidiasis B37.3 and Acute cystitis without hematuria N30.00 [place] [id number] [place] [address] 40439- 6548 May, [place] [address] 16714- 4165 18 Mar, 2017 Vaginal discharge N89.8 and Recurrent candidiasis of vagina B37.3 [place] [address] 83833- 9768 13 Mar, 2017 Nausea and vomiting in adult R11.2 ; Sore throat J02.9 and Diarrhea, unspecified type R19.7 [place] [id number] [place] [address] 37817- 9696 11 Mar, 2017 [place] [id number] [place] [address] 75295- 1658 14 Jan, 2017 Vaginal discharge N89.8 ; Dysuria R30.0 ; High risk sexual behavior Z72.51 ; Major depressive disorder, single episode F32.9 and Vaginal candidiasis B37.3 [place] [id number] [place] [address] 20717- 3713 Jan, Anxiety F41.9 [place] [address] 41202- 5506 Dec, [place] [address] 82213- 6307 Nov, Generalized anxiety disorder F41.1 ; Depressive disorder, not elsewhere classified F32.9 ; History of drug dependence/abuse F19.21 and 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 [place] [address] 47065- 4725 Nov, Vaginal discharge N89.8 ; High risk sexual behavior Z72.51 ; Potential exposure to STD Z20.2 and Vaginal candidiasis B37.3 [place] [address] 73772- 2118 Nov, History of drug dependence/abuse F19.21 and Major depressive disorder, single episode F32.9 [place] [address] 97291- 3209 Nov, Right medial knee pain M25.561 [place] [address] 02564- 7111 October, Nausea and vomiting, intractability of vomiting not specified, unspecified vomiting type R11.2 and Acute pyelonephritis N10 [place] [address] 72022- 5637 Sep, Major depressive disorder, single episode F32.9 ; Alcohol abuse F10.10 and Tobacco abuse Z72.0 [place] [address] 33231- 9672 Sep, Major depressive disorder, single episode F32.9 ; Alcohol abuse F10.10 and History of drug dependence/abuse F19.21 [place] [id number] [place] [address] 31659- 2234 Sep, Major depressive disorder, single episode F32.9 [facility] [id number] [place] [address] 67187 -3379 Aug, Acute cystitis with hematuria N30.01 and Dysuria R30.0 [place] [address] 84445- 3129 Aug, Dysuria R30.0 ; Vaginal candidiasis B37.3 ; Vaginal discharge N89.8 and High risk sexual behavior Z72.51 [place] [id number] [place] [address] 61644- 0278 Jul, [facility] [address] 76468- 3587 Jul, Major depressive disorder, single episode F32.9 ; History of drug dependence/abuse F19.21 ; Alcohol abuse F10.10 and Tobacco abuse Z72.[address] [facility] [id number] [place] [address] [id number] May, Dental examination Z01.20 and Dental caries K02.9 [place] [address] 95689- 6820 May, Fatigue, unspecified type R53.[address] [facility] [id number] [place] [address] 80122- 4996 May, [place] [address] 49418- 1810 Mar, [facility] [id number] [place] [address] 28245- 3736 Mar, [place] [address] 68920- 7229 Mar, [facility] [id number] [place] [address] 75269- 0990 Mar, [place] [id number] [place] [address] 86022- 5454 Mar, Absence of menstruation N91.2 ; Vagina itching L29.8 ; History of drug dependence/abuse F19.21 ; History of PID Z87.42 and Acute cystitis without hematuria N30.00 [facility] [id number] [place] [address] 14563- 2256 Sep, Routine health maintenance Z00.00 ; Late menses N91.0 ; History of drug dependence/abuse F19.21 ; Alcohol abuse F10.10 ; Tobacco abuse Z72.0 ; Tobacco abuse counseling Z71.6 and Back pain M54.[address] [facility] [address] [address] 18 Aug, 2015 Dental examination Z01.20 and Dental caries K02.9 [place] [id number] [place] [address] 45621- 3746 26 Jul, 2015 [place] [id number] [place] [address] 77745- 6212 14 Jul, 2015 Surveillance of contraceptive injection Z30.42 [place] [id number] [place] [address] 95089- 0108 13 Jul, 2015 Routine screening for STI (sexually transmitted infection) Z11.3 ; Drug use F19.90 ; Counseling on substance use and abuse Z71.89 ; Unprotected sexual intercourse Z72.51 ; Encounter for counseling regarding contraception Z30.9 ; Vaginal discharge N89.8 and Skin lesions L98.9 [place] [id number] [place] [address] 37455- 5227 30 May, 2015 [place] [id number] [place] [address] 85114- 3639 May, Yeast infection B37.9 [place] [id number] [place] [address] 44923- 4344 19 May, 2015 Excessive and frequent menstruation with irregular cycle N92.1 ; Other fatigue R53.83 ; General counseling and advice for contraceptive management Z30.09 ; Evaluation for contraceptive injection Z30.013 ; Cough R05 ; Vaginal irritation N89.8 and Dizziness R42 [place] [address] [place] [address] 12381- 3538 Sep, [address] 77336- 5093 Sep, [place] [id number] [place] [address] 79284- 4729 Aug, [place] [id number] [place] [address] 60809- 9054 Aug, [facility] [address] [id number] [place] [address]- 1954 Aug, [facility] [place] [facility] [address] [id number] [place] [address]- 6961 Aug, [facility] [place] [facility] [address] [id number] [place] [address]- 2953 Aug, [facility] [place] [facility] [address] [id number] [place] [address]- 2514 Aug, [facility] [place] [facility] [address] [id number] [place] [address]- 7271 Aug, [facility] [place] [facility] [address] [id number] [place] [address]- 8748 Aug, [facility] [place] [facility] [address] [id number] [place] [address]- 9362 Aug, [facility] [place] [facility] [address] [id number] [place] [address]- 4715 Aug, [facility] [place] [facility] [address] [id number] [place] [address]- 2471 Aug, [facility] [place] [facility] [address] [id number] [place] [address]- 9467 Aug, [facility] [place] [facility] [address] [id number] [place] [address]- 5227 Jul, [facility] [place] [facility] [address] [id number] [address]- 0187 Jul, [facility] [place] [facility] [address] [id number] [place] [address]- 1750 May, [facility] [place] [facility] [address] [id number] [place] [address]- 0374 May, [facility] [place] [facility] [address] [id number] [place] [address]- 7738 May, [facility] [place] [facility] [address] [id number] [place] [address]- 0185 May, [facility] [place] [facility] [address] [id number] [place] [address]- 0587 Mar, [facility] [place] [facility] [address] [id number] [place] [address]- 1962 Mar, [facility] [place] [facility] [address] [id number] [place] [address]- 8464 Mar, [facility] [place] [facility] [address] [id number] [place] [address]- 0213 Mar, [facility] [place] [facility] [address] [id number] [place] [address]- 5777 Mar, [facility] [place] [facility] [address] [id number] [place] [address]- 7644 Mar, [facility] [place] [facility] [address] [id number] [place] [address]- 5278 Mar, [facility] [place] [facility] [address] [id number] [place] [address]- 2556 Mar, [facility] [place] [facility] [address] [id number] [place] [address]- 7779 Mar, [facility] [place] [facility] [address] [id number] [place] [address]- 4379 Mar, [facility] [place] [facility] [address] [id number] [place] [address]- 6418 Jan, [facility] [place] [facility] [address] [id number] [place] [address]- 5465 Jan, [facility] [place] [facility] [address] [id number] [place] [address]- 0881 Nov, [facility] [place] [facility] [address] [id number] [place] [address]- 9199 Nov, [facility] [place] [facility] [address] [id number] [place] [address]- 3562 October, [facility] [place] [facility] [address] [id number] [place] [address]- 8721 October, [facility] [place] [facility] [address] [id number] [place] [address]- 9499 October, [facility] [place] [facility] [address] [id number] [place] [address]- 4890 October, [facility] [place] [facility] [address] [id number] [place] [address]- 6682 October, [facility] [place] [facility] [address] [id number] [place] [address]- 5327 October, [facility] [place] [facility] [address] [id number] [place] [address]- 2381 October, [facility] [place] [facility] [address] [id number] [place] [address]- 1276 October, [facility] [place] [facility] [address] [id number] [place] [address]- 8728 Sep, [facility] [place] [facility] [address] [id number] [place] [address]- 4656 Sep, [facility] [place] [facility] [address] [id number] [place] [address]- 9365 Aug, [facility] [place] [facility] [address] [id number] [place] [address]- 3613 Aug, [facility] [place] [facility] [address] [id number] [place] [address]- 0456 Aug, [facility] [place] [facility] [address] [id number] [place] [address]- 3778 Aug, [facility] [place] [facility] [address] [id number] [place] 3815 May, [facility] [place] [facility] [address] [id number] [place] [address]- 0483 May, [facility] [place] [facility] [address] [id number] [place] [address]- 4438 May, [facility] [place] [facility] [address] [id number] [place] [address]- 1539 May, [facility] [place] [facility] [address] [id number] [place] [address]- 7755 May, [facility] [place] [facility] [address] [id number] [place] [address]- 6149 May, [facility] [place] [facility] [address] [id number] [place] [address]- 0609 May, [facility] [place] [facility] [address] [id number] [place] [address]- 6254 May, [facility] [place] [facility] [address] [id number] [place] [address]- 1256 Mar, [facility] [place] [facility] [address] [id number] [place] [address]- 9598 Mar, [facility] [place] [facility] [address] [id number] [place] [address]- 0361 Mar, [facility] [place] [facility] [address] [id number] [place] [address]- 9206 Jan, [facility] [place] [facility] [address] [id number] [place] [address]- 6066 Jan, [facility] [place] [facility] [address] [id number] [place] [address]- 0771 Dec, [facility] [place] [facility] [address] [id number] [place] [address]- 8313 Dec, [facility] [place] [facility] [address] [id number] [place] [address]- 7684 Dec, [facility] [place] [facility] [address] [id number] [place] [address]- 6446 Sep, [facility] [place] [facility] [address] [id number] [place] [address]- 4295 Aug, [facility] [place] [facility] [address] [id number] [place] [address]- 3617 21 Aug, 2012 [facility] [address] [id number] [place] [address]- 0736 18 Aug, 2012 [facility] [place] [facility] [address] [id number] [place] [address]- 8216 15 Aug, 2012 [facility] [address] [id number] [place] [address]- 4092 14 Aug, 2012 [facility] [place] [facility] [address] [id number] [place] [address]- 0878 11 Aug, 2012 [facility] [address] [id number] [place] [address]- 2438 16 Jul, 2012 [facility] [address] [id number] [place] [address]- 1972 15 Jul, 2012 [facility] [address] [id number] [place] [address]- 3436 07 Jul, 2012 [facility] [address] [id number] [place] [address]- 1772 04 Jul, 2012 [facility] [address] [id number] [place] [address]- 1414 Jul, [facility] [address] [id number] [place] [address]- 6044 Jul, [facility] [address] [id number] [place] [address]- 3733 May, [facility] [address] [id number] [place] [address]- 8928 May, [facility] [place] [facility] [address] [id number] [place] [address]- 7606 May, [facility] [place] [facility] [address] [id number] [place] [address]- 2546 May, [facility] [place] [facility] [address] [id number] [place] [address]- 1835 15 May, 2012 [facility] [place] [facility] [address] [id number] [place] [address]- 4168 15 May, 2012 [facility] [place] [facility] [address] [id number] [place] [address]- 5918 Mar, [facility] [place] [facility] [address] [id number] [place] [address]- 8847 Mar, [facility] [place] [facility] [address] [id number] [place] [address]- 8957 Mar, [facility] [place] [facility] [address] [id number] [place] [address]- 9975 Mar, [facility] [place] [facility] [address] [id number] [place] [address]- 5629 Mar, [facility] [place] [facility] [address] [facility] [id number] [place] [address]- 8981 Mar, [facility] [place] [facility] [address] [id number] [place] [address]- 9469 Mar, [facility] [place] [facility] [address] [id number] [place] [address]- 5666 Dec, [facility] [place] [facility] [address] [id number] [place] [address]- 0976 Nov, [facility] [place] [facility] [address] [id number] [address]- 3979 Sep, [facility] [place] [facility] [address] [id number] [address]- 2625 29 Aug, 2011 [facility] [place] [facility] [address] [id number] [place] [address]- 7881 Aug, [facility] [place] [facility] [address] [id number] [place] [address]- 0959 Aug, [facility] [place] [facility] [address] [id number] [place] [address]- 2457 Aug, [facility] [place] [facility] [address] [id number] [place] [address]- 6016 16 Aug, 2011 [facility] [place] [facility] [address] [id number] [place] [address]- 7431 Aug, [facility] [place] [facility] [address] [id number] [place] [address]- 3128 Jul, [facility] [place] [facility] [address] [id number] [place] [address]- 8463 Jul, [facility] [place] [facility] [address] [id number] [place] [address]- 6570 Jul, [facility] [place] [facility] [address] [id number] [place] [address]- 2929 May, [facility] [place] [facility] [address] [id number] [place] [address]- 5496 May, [facility] [place] [facility] [address] [id number] [place] [address] Mar, [facility] [place] [facility] [address] [id number] [place] [address] 24 Mar, 2011 [facility] [place] [facility] [address] [id number] [place] [address] Mar, [facility] [place] [facility] [address] [id number] [place] [address] Mar, [facility] [place] [facility] [address] [id number] [place] [address] Dec, [facility] [place] [facility] [address] [id number] [place] [address] 14 May, 2010 [facility] [place] [facility] [address] [id number] [place] [address] May, [facility] [place] [facility] [address] [id number] [place] [address] May, [facility] [place] [facility] [address] [id number] [place] [address] 14 Mar, 2010 [facility] [address] [facility] [id number] [address] [address], [address] [facility] [id number] [address] Jan, [facility] [id number] [address] Aug, [facility] [id number] [address] May, [facility] [address] [facility] [id number] [address] May, [facility] [id number] [address] May, [facility] [id number] [address] May, [facility] [id number] [address] May, [facility] [id number] [address] Mar, [facility] [id number] [address] Jul, [facility] [id number] [address] May, [facility] [id number] [address] Mar, [facility] [address] [id number] [address] Sep, [facility] [id number] [address] Jul, IMMUNIZATIONS No Known Immunizations SOCIAL HISTORY Never Assessed [place] [place] VITAL SIGNS MEDICATIONS Unknown [...]
--- OUTSIDE RECORDS SUMMARY | 2018-11-01 09:43 | XMS REPORT ---
Author Author Migration, Doctor Organization [facility] Address Unknown Phone Unavailable Care Team Providers Care Heritage Consultant Name Role Phone Migration, Doctor Unavailable Unavailable PROBLEMS Type Condition ICD9-CM Code EZB73-SD Code Onset Dates Condition Status SNOMED Code Problem IBS (irritable bowel syndrome) K58.9 Active 55263442 Problem PCOS (polycystic ovarian syndrome) E28.2 Active 36301739 Problem Irregular menses N92.6 Active 31877122 Problem Unspecified mood [affective] disorder F39 Active 694135123 Problem Generalized anxiety disorder F41.1 Active 66388818 Problem Other chronic pain G89.29 Active 83563832 Problem Tobacco abuse counseling Z71.6 Active 176024251 Problem Abnormal uterine bleeding N93.9 Active [id number] Problem Tobacco abuse Z72.0 Active 27799805 Problem Chronic posttraumatic stress disorder F43.12 Active 873036938 Problem History of drug dependence/abuse F19.21 Active 115007046 Problem PTSD (post-traumatic stress disorder) F43.10 Active 98909525 Problem Bipolar II disorder F31.81 Active 87973646 ALLERGIES No Information ENCOUNTERS Encounter Location Date Diagnosis [place] [id number] [place] [address] 98608- 1084 20 Aug, 2018 High risk heterosexual behavior Z72.51 ; Acute cystitis with hematuria N30.01 and Irregular menses N92.6 [facility] [id number] [place] [address] 25452- 7124 14 Aug, 2018 Abnormal uterine bleeding N93.9 and Tobacco abuse Z72.0 [place] [address] 83244- 3580 13 Aug, 2018 Abnormal uterine bleeding N93.9 and Tobacco abuse Z72.0 [place] [id number] [place] [address] 08513- 9606 11 Aug, 2018 Viral gastroenteritis A08.4 [place] [id number] [place] [address] 91945- 6072 06 Aug, 2018 Frequency of urination R35.0 ; Vaginal discharge N89.8 and Screening for cervical cancer Z12.4 [facility] [id number] [place] [address] 46115- 4630 27 May, 2018 Bronchitis J40 [facility] [address] 79008- 2972 11 May, 2018 [facility] [id number] [place] [address] 33984- 4112 May, [facility] [address] 03185- 6498 May, [facility] [address] 78358- 0432 May, [facility] [address] 52614- 6810 May, Concussion with loss of consciousness, initial encounter S06.0X9A [facility] [id number] [place] [address] 55441- 1036 Mar, Upper respiratory infection, viral J06.9 and Dysuria R30.0 [facility] [address] [id number] Mar, Dental examination Z01.20 [facility] [address] [id number] Mar, Dental examination Z01.20 [facility] [id number] [place] [address] [id number] Mar, Caries K02.9 [facility] [address] [id number] Mar, Dental examination Z01.20 [facility] [id number] [place] [address] 95482 2546 Dec, [facility] [address] [place] [address]- 5626 Dec, [place] [address] 02524- 5820 Nov, Irregular menses N92.6 ; Abnormal uterine bleeding N93.9 ; History of PCOS Z87.42 and History of unprotected sex Z72.51 [place] [address] 29011- 8784 October, [place] [address] 88402- 8005 October, Low back pain M54.5 ; Dysuria R30.0 ; Other chronic pain G89.29 and Routine gynecological examination Z01.419 [place] [address] 65035- 8316 October, Dysuria R30.0 and Vaginal discharge N89.8 [place] [address] 58007- 8246 Sep, Bipolar II disorder F31.81 ; PTSD (post-traumatic stress disorder) F43.10 ; Generalized anxiety disorder F41.1 and History of drug dependence/abuse F19.21 [place] [address] 94325- 3606 Sep, Unspecified mood [affective] disorder F39 and Post- traumatic stress disorder, unspecified F43.10 [place] [id number] [place] [address] 94632- 9489 Aug, PCOS (polycystic ovarian syndrome) E28.2 ; Recurrent major depressive disorder, in full remission F33.42 ; IBS (irritable bowel syndrome) K58.9 and Tobacco abuse Z72.0 [place] [address] 11251- 4277 Aug, Generalized anxiety disorder F41.1 and Depressive disorder, not elsewhere classified F32.9 [place] [address] 25859- 3052 Aug, PCOS (polycystic ovarian syndrome) E28.2 ; Recurrent major depressive disorder, in full remission F33.42 ; IBS (irritable bowel syndrome) K58.9 ; Tobacco abuse Z72.0 ; Tobacco abuse counseling Z71.6 ; Dysuria R30.0 ; Irregular menses N92.6 ; Vaginal candidiasis B37.3 and Acute cystitis without hematuria N30.00 [place] [address] 76236- 8292 May, [place] [address] 64156- 0363 18 Mar, 2017 Vaginal discharge N89.8 and Recurrent candidiasis of vagina B37.3 [place] [address] 83660- 9581 13 Mar, 2017 Nausea and vomiting in adult R11.2 ; Sore throat J02.9 and Diarrhea, unspecified type R19.7 [place] [address] 78741- 9923 11 Mar, 2017 [place] [address] 74165- 1748 14 Jan, 2017 Vaginal discharge N89.8 ; Dysuria R30.0 ; High risk sexual behavior Z72.51 ; Major depressive disorder, single episode F32.9 and Vaginal candidiasis B37.3 [place] [id number] [place] [address] 17404- 8254 Jan, Anxiety F41.9 [place] [address] 02427- 7078 Dec, [place] [address] 38456- 1889 Nov, Generalized anxiety disorder F41.1 ; Depressive disorder, not elsewhere classified F32.9 ; History of drug dependence/abuse F19.21 and 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 [place] [address] 39386- 2661 Nov, Vaginal discharge N89.8 ; High risk sexual behavior Z72.51 ; Potential exposure to STD Z20.2 and Vaginal candidiasis B37.3 [place] [address] 52738- 4598 16 Nov, 2016 History of drug dependence/abuse F19.21 and Major depressive disorder, single episode F32.9 [place] [address] 07528- 3708 Nov, Right medial knee pain M25.561 [place] [address] 53937- 9053 October, Nausea and vomiting, intractability of vomiting not specified, unspecified vomiting type R11.2 and Acute pyelonephritis N10 [place] [address] 51354- 4301 Sep, Major depressive disorder, single episode F32.9 ; Alcohol abuse F10.10 and Tobacco abuse Z72.0 [place] [address] 64297- 6207 Sep, Major depressive disorder, single episode F32.9 ; Alcohol abuse F10.10 and History of drug dependence/abuse F19.21 [place] [address] 66720- 7536 Sep, Major depressive disorder, single episode F32.9 [facility] [address] 86746 -9968 Aug, Acute cystitis with hematuria N30.01 and Dysuria R30.0 [place] [address] 35451- 0949 Aug, Dysuria R30.0 ; Vaginal candidiasis B37.3 ; Vaginal discharge N89.8 and High risk sexual behavior Z72.51 [place] [address] 68125- 4864 Jul, [place] [address] [place] [address]- 5702 Jul, Major depressive disorder, single episode F32.9 ; History of drug dependence/abuse F19.21 ; Alcohol abuse F10.10 and Tobacco abuse Z72.0 [facility] [id number] [place] [address] [id number] May, Dental examination Z01.20 and Dental caries K02.9 [facility] [address] 88809- 1404 May, Fatigue, unspecified type R53.83 and Cough R05 [facility] [address] 12632- 7227 May, [facility] [address] 89034- 6028 Mar, [facility] [address] 84617- 2405 Mar, [facility] [address] 64857- 8098 Mar, [facility] [address] 27515- 0066 Mar, [facility] [address] 73701- 7864 Mar, Absence of menstruation N91.2 ; Vagina itching L29.8 ; History of drug dependence/abuse F19.21 ; History of PID Z87.42 and Acute cystitis without hematuria N30.00 [facility] [id number] [place] [address] 63709- 8368 Sep, Routine health maintenance Z00.00 ; Late menses N91.0 ; History of drug dependence/abuse F19.21 ; Alcohol abuse F10.10 ; Tobacco abuse Z72.0 ; Tobacco abuse counseling Z71.6 and Back pain M54.9 [facility] [id number] [place] [address] [id number] 18 Feb, 2016 Dental examination Z01.20 and Dental caries K02.9 [place] [id number] [place] [address] 44836- 2158 26 Jul, 2015 [place] [id number] [place] [address] 22813- 6675 14 Jul, 2015 Surveillance of contraceptive injection Z30.42 [place] [id number] [place] [address] 89131- 5078 13 Jul, 2015 Routine screening for STI (sexually transmitted infection) Z11.3 ; Drug use F19.90 ; Counseling on substance use and abuse Z71.89 ; Unprotected sexual intercourse Z72.51 ; Encounter for counseling regarding contraception Z30.9 ; Vaginal discharge N89.8 and Skin lesions L98.9 [place] [id number] [place] [address] 46563- 5366 30 May, [address] 92162- 8743 May, Yeast infection B37.9 [place] [id number] [place] [address] 78208- 4686 19 May, 2015 Excessive and frequent menstruation with irregular cycle N92.1 ; Other fatigue R53.83 ; General counseling and advice for contraceptive management Z30.09 ; Evaluation for contraceptive injection Z30.013 ; Cough R05 ; Vaginal irritation N89.8 and Dizziness R42 [place] [id number] [place] [address] 85676- 0696 Sep, [place] [id number] [place] [address] 08829- 6169 Sep, [place] [id number] [place] [address] 78993- 8155 Aug, [place] [id number] [place] [address] 67858- 5941 Aug, [place] [id number] [place] [address] 42000- 7916 Aug, [address] [id number] [place] [address]- 6773 Aug, [facility] [place] [facility] [address] [id number] [place] [address]- 5676 Aug, [facility] [place] [facility] [address] [id number] [place] [address]- 5685 Aug, [facility] [place] [facility] [address] [id number] [place] [address]- 4514 Aug, [facility] [place] [facility] [address] [id number] [place] [address]- 5998 Aug, [facility] [place] [facility] [address] [id number] [place] [address]- 1586 Aug, 2014 [facility] [place] [facility] [address] [id number] [place] [address]- 4517 Aug, [facility] [place] [facility] [address] [id number] [place] [address]- 4115 Aug, [facility] [place] [facility] [address] [id number] [place] [address]- 8729 Aug, [facility] [place] [facility] [address] [facility] [id number] [place] [address]- 4952 Jul, [facility] [place] [facility] [address] [id number] [place] [address]- 8291 Jul, [facility] [place] [facility] [address] [id number] [place] [address]- 6456 May, [facility] [place] [facility] [address] [id number] [place] [address]- 1462 May, [facility] [place] [facility] [address] [id number] [place] [address]- 6827 May, [facility] [place] [facility] [address] [id number] [place] [address]- 9759 May, [facility] [place] [facility] [address] [id number] [place] [address]- 6604 Mar, [facility] [place] [facility] [address] [id number] [place] [address]- 0963 Mar, [facility] [place] [facility] [address] [id number] [place] [address]- 4758 Mar, [facility] [place] [facility] [address] [id number] [place] [address]- 9753 Mar, [facility] [place] [facility] [address] [id number] [place] [address]- 9860 Mar, [facility] [place] [facility] [address] [id number] [place] [address]- 6867 Mar, [facility] [place] [facility] [address] [id number] [place] [address]- 3346 Mar, [facility] [place] [facility] [address] [id number] [place] [address]- 5242 Mar, [facility] [place] [facility] [address] [id number] [place] [address]- 6929 Mar, [facility] [place] [facility] [address] [id number] [place] [address]- 4960 Mar, [facility] [place] [facility] [address] [id number] [place] [address]- 7152 Jan, [facility] [place] [facility] [address] [id number] [place] [address]- 3840 Jan, [facility] [place] [facility] [address] [id number] [place] [address]- 3525 Nov, [facility] [place] [facility] [address] [id number] [place] [address]- 8963 Nov, [facility] [place] [facility] [address] [id number] [place] [address]- 2340 October, [facility] [place] [facility] [address] [id number] [place] [address]- 1729 October, [facility] [place] [facility] [address] [id number] [place] [address]- 8927 October, [facility] [address] [id number] [place] [address]- 7031 October, [facility] [place] [facility] [address] [id number] [place] [address]- 4996 October, [facility] [place] [facility] [address] [id number] [place] [address]- 1422 October, [facility] [place] [facility] [address] [id number] [place] [address]- 9682 October, [facility] [place] [facility] [address] [id number] [place] [address]- 4014 October, [facility] [place] [facility] [address] [id number] [place] [address]- 5743 Sep, [facility] [place] [facility] [address] [id number] [place] [address]- 8174 Sep, [facility] [place] [facility] [address] [id number] [place] [address]- 3593 Aug, [facility] [place] [facility] [address] [id number] [place] [address]- 0235 Aug, [facility] [place] [facility] [address] [facility] [id number] [place] [address]- 1687 Aug, [facility] [place] [facility] [address] [id number] [place] [address]- 1064 Aug, [facility] [place] [place] [place] [facility] [address] [id number] [place] [address]- 1008 May, [facility] [place] [facility] [address] [id number] [place] [address]- 5581 May, [facility] [place] [facility] [address] [id number] [place] [address]- 7296 May, [facility] [place] [facility] [address] [id number] [place] [address]- 4925 May, [facility] [place] [facility] [address] [id number] [place] [address]- 4563 May, [facility] [place] [facility] [address] [id number] [place] [address]- 5277 May, [facility] [place] [facility] [address] [id number] [place] [address]- 1998 May, [facility] [place] [facility] [address] [id number] [place] [address]- 0680 May, [facility] [place] [facility] [address] [id number] [place] [address]- 7541 Mar, [facility] [place] [facility] [address] [id number] [place] [address]- 3853 Mar, [facility] [place] [facility] [address] [id number] [place] [address]- 2604 Mar, [facility] [place] [facility] [address] [id number] [place] [address]- 0212 Jan, [facility] [place] [facility] [address] [id number] [place] [address]- 1463 Jan, [facility] [place] [facility] [address] [id number] [place] [address]- 0369 Dec, [facility] [place] [facility] [address] [id number], [place] [address]- 2404 Dec, [facility] [place] [facility] [address] [id number], [place] [address]- 5723 Dec, [facility] [place] [facility] [address] [id number] [place] [address]- 4002 Sep, [facility] [place] [facility] [address] [id number], [place] [address]- 2542 Aug, [facility] [place] [facility] [address] [id number] [place] [address]- 2547 Aug, [facility] [place] [facility] [address] [id number] [place] [address]- 5175 18 Aug, 2012 [facility] [address] [id number] [place] [address]- 3442 15 Aug, 2012 [facility] [address] [id number] [place] [address]- 1556 14 Aug, 2012 [facility] [address] [id number] [place] [address]- 6646 11 Aug, 2012 [facility] [address] [id number] [place] [address]- 5484 16 Jul, 2012 [facility] [address] [id number] [place] [address]- 4267 15 Jul, 2012 [facility] [address] [id number] [place] [address]- 1580 07 Jul, 2012 [facility] [address] [id number] [place] [address]- 9020 04 Jul, 2012 [facility] [address] [id number] [place] [address]- 6164 03 Jul, 2012 [facility] [address] [id number] [place] [address]- 3774 02 Jul, 2012 [facility] [address] [facility] [id number] [place] [address]- 2902 26 May, 2012 [facility] [address] [id number] [place] [address]- 8227 26 May, 2012 [facility] [address] [id number] [place] [address]- 4450 18 May, 2012 [facility] [place] [facility] [address] [id number] [place] [address]- 8752 18 May, 2012 [facility] [place] [facility] [address] [id number] [place] [address]- 5240 15 May, 2012 [facility] [address] [id number] [place] [address]- 7536 May, [facility] [place] [facility] [address] [id number] [place] [address]- 8929 Mar, [facility] [place] [facility] [address] [id number] [place] [address]- 7918 Mar, [facility] [place] [facility] [address] [id number] [place] [address]- 3162 Mar, [facility] [place] [facility] [id number] [place] [address], [place] [address]- 9982 Mar, [facility] [place] [facility] [address] [id number] [place] [address]- 1939 Mar, [facility] [place] [facility] [address] [id number] [place] [address]- 3961 Mar, [facility] [place] [facility] [address] [id number] [place] [address]- 5493 Mar, [facility] [place] [facility] [address] [id number] [place] [address]- 5328 Dec, [facility] [place] [facility] [address] [id number] [place] [address]- 0562 Nov, [facility] [place] [facility] [address] [id number] [place] [address]- 5958 Sep, [facility] [place] [facility] [address] [id number] [place] [address]- 0445 29 Aug, 2011 [facility] [place] [facility] [address] [id number] [place] [address]- 7419 27 Aug, 2011 [facility] [place] [facility] [address] [id number] [place] [address]- 1148 22 Aug, 2011 [facility] [place] [facility] [address] [id number] [place] [address]- 1158 21 Aug, 2011 [facility] [place] [facility] [address] [id number] [place] [address]- 2496 16 Aug, 2011 [facility] [place] [facility] [address] [id number] [place] [address]- 1856 Aug, [facility] [place] [facility] [address] [id number] [place] [address]- 0048 Jul, [facility] [place] [facility] [address] [id number] [place] [address]- 6959 Jul, [facility] [place] [facility] [address] [id number] [place] [address]- 9939 Jul, [facility] [place] [facility] [address] [id number] [place] [address]- 5137 May, [facility] [place] [facility] [address] [id number] [place] [address]- 2128 May, [facility] [place] [facility] [address] [id number] [place] [address]- 9785 Mar, [facility] [place] [facility] [address] [id number] [place] [address]- 5907 Mar, [facility] [place] [facility] [address] [id number] [place] [address]- 6729 Mar, [facility] [place] [facility] [address] [id number] [place] [address]- 6688 Mar, [facility] [place] [facility] [address] [id number] [place] [address]- 3365 Dec, [facility] [place] [facility] [address] [id number] [place] [address]- 0978 14 May, 2010 [facility] [place] [facility] [address] [id number] [place] [address]- 1381 06 May, 2010 [facility] [place] [facility] [address] [id number] [place] [address]- 8491 May, [facility] [place] [facility] [address] [id number] [place] [address]- 1574 14 Mar, 2010 [facility] [place] [facility] [address] [id number] [place] [address]- 8[address] 14 Mar, 2010 [facility] [place] [facility] [id number], [place] [address] Jan, [facility] [address] [id number] [address] Aug, [facility] [id number], [place] [address] May, [facility] [id number], [place] [address] May, [facility] [id number] [address] May, [facility] [id number] [place] [address] May, [facility] [id number] [address] May, [facility] [id number], [place] [address] Mar, [facility] [id number], [place] [address] Jul, [facility] [id number], [place] [address] May, [facility] [id number], [place] [address] Mar, [facility] [id number], [place] [address] Sep, [facility] [address] [id number], [place] [address] Jul, IMMUNIZATIONS No Known Immunizations SOCIAL HISTORY Never Assessed REASON FOR VISIT EMR-[facility] [place] OF CARE VITAL SIGNS MEDICATIONS No Known Medications RESULTS No Results PROCEDURES No Known [...]
--- OUTSIDE RECORDS SUMMARY | 2018-11-01 09:43 | XMS REPORT ---
Author Author Migration, Doctor Organization [facility] Address Unknown Phone Unavailable Care Team Providers Care Supervisor Of Operations Name Role Phone Migration, Doctor Unavailable Unavailable PROBLEMS Type Condition ICD9-CM Code QSU55-GF Code Onset Dates Condition Status SNOMED Code Problem IBS (irritable bowel syndrome) K58.9 Active 38732218 Problem PCOS (polycystic ovarian syndrome) E28.2 Active 15458342 Problem Irregular menses N92.6 Active 13260705 Problem Unspecified mood [affective] disorder F39 Active 435370567 Problem Generalized anxiety disorder F41.1 Active 07356194 Problem Other chronic pain G89.29 Active 47304087 Problem Tobacco abuse counseling Z71.6 Active 926148502 Problem Abnormal uterine bleeding N93.9 Active 92583551536084 Problem Tobacco abuse Z72.0 Active 11188445 Problem Chronic posttraumatic stress disorder F43.12 Active 997200811 Problem History of drug dependence/abuse F19.21 Active 809170091 Problem PTSD (post-traumatic stress disorder) F43.10 Active 30374465 Problem Bipolar II disorder F31.81 Active 02134583 ALLERGIES No Information ENCOUNTERS Encounter Location Date Diagnosis [place] [id number] [place] [address] 63260- 5269 Sep, Abnormal uterine bleeding N93.9 [place] [id number] [place] [address] 38215- 1331 Aug, High risk heterosexual behavior Z72.51 ; Acute cystitis with hematuria N30.01 and Irregular menses N92.6 [place] [id number] [place] [address] 28624- 0074 14 Aug, 2018 Abnormal uterine bleeding N93.9 and Tobacco abuse Z72.0 [place] [id number] [place] [address] 19287- 7666 13 Aug, 2018 Abnormal uterine bleeding N93.9 and Tobacco abuse Z72.0 [place] [id number] [place] [address] 70564- 9376 11 Aug, [address] [facility] [id number]- 8846 06 Aug, 2018 Frequency of urination R35.0 ; Vaginal discharge N89.8 and Screening for cervical cancer Z12.4 [place] [address] 87881- 4756 27 May, [address] [facility] [address] 33261- 5080 11 May, 2018 [place] [address] 53772- 1465 May, [place] [address] 04164- 2883 May, [place] [address] 94885- 0411 May, [facility] [address] 49464- 4150 06 May, 2018 Concussion with loss of consciousness, initial encounter S06.0X9A [place] [id number] [place] [address] 96492- 0330 09 Mar, 2018 Upper respiratory infection, viral J06.9 and Dysuria R30.0 [facility] [id number] [place] [address] [id number] Mar, Dental examination Z01.20 [facility] [id number] [place] [address] [id number] Mar, Dental examination Z01.20 [facility] [address] [id number] Mar, Caries K02.9 [facility] [address] [id number] 13 Mar, [address] [facility] [address] [address] 8[address] Dec, [place] [id number] [place] [address] 99268- 1799 Dec, [place] [id number] [place] [address] 43923- 6020 Nov, Irregular menses N92.6 ; Abnormal uterine bleeding N93.9 ; History of PCOS Z87.42 and History of unprotected sex Z72.51 [place] [id number] [place] [address] 42783- 0585 October, [place] [id number] [place] [address] 25976- 9581 October, Low back pain M54.5 ; Dysuria R30.0 ; Other chronic pain G89.29 and Routine gynecological examination Z01.419 [place] [id number] [place] [address] 48890- 6139 October, Dysuria R30.0 and Vaginal discharge N89.8 [place] [id number] [place] [address] 74011- 6076 Sep, Bipolar II disorder F31.81 ; PTSD (post-traumatic stress disorder) F43.10 ; Generalized anxiety disorder F41.1 and History of drug dependence/abuse F19.21 [place] [id number] [place] [address] 19041- 5465 Sep, Unspecified mood [affective] disorder F39 and Post- traumatic stress disorder, unspecified F43.10 [place] [address] [place] [address] 27743- 1795 Aug, PCOS (polycystic ovarian syndrome) E28.2 ; Recurrent major depressive disorder, in full remission F33.42 ; IBS (irritable bowel syndrome) K58.9 and Tobacco abuse Z72.0 [place] [address] [place] [address] 27720- 3194 Aug, Generalized anxiety disorder F41.1 and Depressive disorder, not elsewhere classified F32.9 [place] [id number] [place] [address] 06337- 3958 Aug, PCOS (polycystic ovarian syndrome) E28.2 ; Recurrent major depressive disorder, in full remission F33.42 ; IBS (irritable bowel syndrome) K58.9 ; Tobacco abuse Z72.0 ; Tobacco abuse counseling Z71.6 ; Dysuria R30.0 ; Irregular menses N92.6 ; Vaginal candidiasis B37.3 and Acute cystitis without hematuria N30.00 [place] [id number] [place] [address] 63368- 5727 May, [place] [address] 32979- 0222 18 Mar, 2017 Vaginal discharge N89.8 and Recurrent candidiasis of vagina B37.3 [place] [address] 53298- 1746 13 Mar, 2017 Nausea and vomiting in adult R11.2 ; Sore throat J02.9 and Diarrhea, unspecified type R19.7 [place] [id number] [place] [address] 61207- 9606 11 Mar, 2017 [place] [id number] [place] [address] 58781- 4436 14 Jan, 2017 Vaginal discharge N89.8 ; Dysuria R30.0 ; High risk sexual behavior Z72.51 ; Major depressive disorder, single episode F32.9 and Vaginal candidiasis B37.3 [place] [id number] [place] [address] 98351- 6584 Jan, Anxiety F41.9 [place] [address] 79043- 4657 Dec, [place] [address] 38676- 9514 Nov, Generalized anxiety disorder F41.1 ; Depressive disorder, not elsewhere classified F32.9 ; History of drug dependence/abuse F19.21 and 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 [place] [address] 59305- 4894 Nov, Vaginal discharge N89.8 ; High risk sexual behavior Z72.51 ; Potential exposure to STD Z20.2 and Vaginal candidiasis B37.3 [place] [address] 15543- 3196 Nov, History of drug dependence/abuse F19.21 and Major depressive disorder, single episode F32.9 [place] [address] 39860- 5146 Nov, Right medial knee pain M25.561 [place] [address] 21883- 0517 October, Nausea and vomiting, intractability of vomiting not specified, unspecified vomiting type R11.2 and Acute pyelonephritis N10 [place] [address] 79162- 3701 Sep, Major depressive disorder, single episode F32.9 ; Alcohol abuse F10.10 and Tobacco abuse Z72.0 [place] [address] 22535- 3905 Sep, Major depressive disorder, single episode F32.9 ; Alcohol abuse F10.10 and History of drug dependence/abuse F19.21 [place] [id number] [place] [address] 24414- 0979 Sep, Major depressive disorder, single episode F32.[address] [facility] [id number] [place] [address] 77530 -9889 Aug, Acute cystitis with hematuria N30.01 and Dysuria R30.0 [place] [address] 47452- 3515 Aug, Dysuria R30.0 ; Vaginal candidiasis B37.3 ; Vaginal discharge N89.8 and High risk sexual behavior Z72.51 [place] [id number] [place] [address] 66957- 9215 Jul, [facility] [address] 54786- 7981 Jul, Major depressive disorder, single episode F32.9 ; History of drug dependence/abuse F19.21 ; Alcohol abuse F10.10 and Tobacco abuse Z72.0 [facility] [id number] [place] [address] [id number] May, Dental examination Z01.20 and Dental caries K02.9 [place] [address] 05967- 7771 May, Fatigue, unspecified type R53.[address] [facility] [id number] [place] [address] 88333- 9909 May, [place] [address] 30666- 2577 Mar, [facility] [id number] [place] [address] 71110- 6436 Mar, [place] [address] 88930- 6095 Mar, [facility] [id number] [place] [address] 40947- 2120 Mar, [place] [id number] [place] [address] 46737- 3826 Mar, Absence of menstruation N91.2 ; Vagina itching L29.8 ; History of drug dependence/abuse F19.21 ; History of PID Z87.42 and Acute cystitis without hematuria N30.00 [facility] [id number] [place] [address] 01549- 9450 Sep, Routine health maintenance Z00.00 ; Late menses N91.0 ; History of drug dependence/abuse F19.21 ; Alcohol abuse F10.10 ; Tobacco abuse Z72.0 ; Tobacco abuse counseling Z71.6 and Back pain M54.9 [facility] [address] [id number] 18 Aug, 2015 Dental examination Z01.20 and Dental caries K02.9 [place] [id number] [place] [address] 90024- 4578 26 Jul, 2015 [place] [id number] [place] [address] 22616- 9058 14 Jul, 2015 Surveillance of contraceptive injection Z30.42 [place] [id number] [place] [address] 65296- 1604 13 Jul, 2015 Routine screening for STI (sexually transmitted infection) Z11.3 ; Drug use F19.90 ; Counseling on substance use and abuse Z71.89 ; Unprotected sexual intercourse Z72.51 ; Encounter for counseling regarding contraception Z30.9 ; Vaginal discharge N89.8 and Skin lesions L98.9 [place] [id number] [place] [address] 91712- 1208 30 May, 2015 [place] [id number] [place] [address] 26587- 7167 May, Yeast infection B37.9 [place] [id number] [place] [address] 18147- 8215 19 May, 2015 Excessive and frequent menstruation with irregular cycle N92.1 ; Other fatigue R53.83 ; General counseling and advice for contraceptive management Z30.09 ; Evaluation for contraceptive injection Z30.013 ; Cough R05 ; Vaginal irritation N89.8 and Dizziness R42 [place] [address] [place] [address] 84767- 5940 Sep, [address] 59103- 2414 Sep, [place] [id number] [place] [address] 29939- 7931 Aug, [place] [id number] [place] [address] 20824- 9871 Aug, [facility] [address] [id number] [place] [address]- 6491 Aug, [facility] [place] [facility] [address] [id number] [place] [address]- 2978 Aug, [facility] [place] [facility] [address] [id number] [place] [address]- 6421 Aug, [facility] [place] [facility] [address] [id number] [place] [address]- 0650 Aug, [facility] [place] [facility] [address] [id number] [place] [address]- 5548 Aug, [facility] [place] [facility] [address] [id number] [place] [address]- 2651 Aug, [facility] [place] [facility] [address] [id number] [place] [address]- 7616 Aug, [facility] [place] [facility] [address] [id number] [place] [address]- 6635 Aug, [facility] [place] [facility] [address] [id number] [place] [address]- 7252 Aug, [facility] [place] [facility] [address] [id number] [place] [address]- 5214 Aug, [facility] [place] [facility] [address] [id number] [place] [address]- 6973 Jul, [facility] [place] [facility] [address] [id number], [place] [address]- 0134 Jul, [facility] [place] [facility] [address] [id number] [place] [address]- 6630 May, [facility] [place] [facility] [address] [id number] [place] [address]- 5717 May, [facility] [place] [facility] [address] [id number] [place] [address]- 6421 May, [facility] [place] [facility] [address] [id number] [place] [address]- 0121 May, [facility] [place] [facility] [address] [id number] [place] [address]- 4888 Mar, [facility] [place] [facility] [address] [id number] [place] [address]- 8716 Mar, [facility] [place] [facility] [address] [id number] [place] [address]- 5168 Mar, [facility] [place] [facility] [address] [id number] [place] [address]- 4390 Mar, [facility] [place] [facility] [address] [id number] [place] [address]- 6696 Mar, [facility] [place] [facility] [address] [id number] [place] [address]- 2489 Mar, [facility] [place] [facility] [address] [id number] [place] [address]- 1610 Mar, [facility] [place] [facility] [address] [id number] [place] [address]- 8436 Mar, [facility] [place] [facility] [address] [id number] [place] [address]- 9906 Mar, [facility] [place] [facility] [address] [id number] [place] [address]- 5105 Mar, [facility] [place] [facility] [address] [id number] [place] [address]- 7045 Jan, [facility] [place] [facility] [address] [id number] [place] [address]- 3871 Jan, [facility] [place] [facility] [address] [id number] [place] [address]- 1845 Nov, [facility] [place] [facility] [address] [id number] [place] [address]- 5341 Nov, [facility] [place] [facility] [address] [id number] [place] [address]- 6495 October, [facility] [place] [facility] [address] [id number] [place] [address]- 5277 October, [facility] [place] [facility] [address] [id number] [place] [address]- 6273 October, [facility] [place] [facility] [address] [id number] [place] [address]- 5876 October, [facility] [place] [facility] [address] [id number] [place] [address]- 4730 October, [facility] [place] [facility] [address] [id number] [place] [address]- 3508 October, [facility] [place] [facility] [address] [id number] [place] [address]- 0692 October, [facility] [place] [facility] [address] [id number] [place] [address]- 1951 October, [facility] [place] [facility] [address] [id number] [place] [address]- 5810 Sep, [facility] [place] [facility] [address] [id number] [place] [address]- 7992 Sep, [facility] [place] [facility] [address] [id number] [place] [address]- 6579 Aug, [facility] [place] [facility] [address] [id number] [place] [address]- 9843 Aug, [facility] [place] [facility] [address] [id number] [place] [address]- 7321 Aug, [facility] [place] [facility] [address] [id number] [place] [address]- 0240 Aug, [facility] [place] [facility] [address] [id number] [place] 9809 May, [facility] [place] [facility] [address] [id number] [place] [address]- 1188 May, [facility] [place] [facility] [address] [id number] [place] [address]- 4133 May, [facility] [place] [facility] [address] [id number] [place] [address]- 0657 May, [facility] [place] [facility] [address] [id number] [place] [address]- 1702 May, [facility] [place] [facility] [address] [id number] [place] [address]- 9183 May, [facility] [place] [facility] [address] [id number] [place] [address]- 0629 May, [facility] [place] [facility] [address] [id number] [place] [address]- 0181 May, [facility] [place] [facility] [address] [id number] [place] [address]- 4051 Mar, [facility] [place] [facility] [address] [id number] [place] [address]- 7094 Mar, [facility] [place] [facility] [address] [id number] [place] [address]- 5726 Mar, [facility] [place] [facility] [address] [id number] [place] [address]- 3481 Jan, [facility] [place] [facility] [address] [id number] [place] [address]- 4820 Jan, [facility] [place] [facility] [address] [id number] [place] [address]- 5657 Dec, [facility] [place] [facility] [address] [id number] [place] [address]- 1191 Dec, [facility] [place] [facility] [address] [id number] [place] [address]- 4719 Dec, [facility] [place] [facility] [address] [id number] [place] [address]- 2478 Sep, [facility] [place] [facility] [address] [id number] [place] [address]- 1535 Aug, [facility] [place] [facility] [address] [id number] [place] [address]- 6670 21 Aug, 2012 [facility] [address] [id number] [place] [address]- 4570 18 Aug, 2012 [facility] [place] [facility] [address] [id number] [place] [address]- 7856 15 Aug, 2012 [facility] [address] [id number] [place] [address]- 9680 14 Aug, 2012 [facility] [place] [facility] [address] [id number] [place] [address]- 2719 11 Aug, 2012 [facility] [address] [id number] [place] [address]- 2757 16 Jul, 2012 [facility] [address] [id number] [place] [address]- 9118 15 Jul, 2012 [facility] [address] [id number] [place] [address]- 4924 07 Jul, 2012 [facility] [address] [id number] [place] [address]- 2063 04 Jul, 2012 [facility] [address] [id number] [place] [address]- 7795 Jul, [facility] [address] [id number] [place] [address]- 9942 Jul, [facility] [address] [id number] [place] [address]- 6011 May, [facility] [address] [id number] [place] [address]- 8319 May, [facility] [place] [facility] [address] [id number] [place] [address]- 3086 May, [facility] [place] [facility] [address] [id number] [place] [address]- 2546 May, [facility] [place] [facility] [address] [id number] [place] [address]- 6401 15 May, 2012 [facility] [place] [facility] [address] [id number] [place] [address]- 7114 15 May, 2012 [facility] [place] [facility] [address] [id number] [place] [address]- 7489 Mar, [facility] [place] [facility] [address] [id number] [place] [address]- 4979 Mar, [facility] [place] [facility] [address] [id number] [place] [address]- 7828 Mar, [facility] [place] [facility] [address] [id number] [place] [address]- 0376 Mar, [facility] [place] [facility] [address] [id number] [place] [address]- 4596 Mar, [facility] [place] [facility] [address] [facility] [id number] [place] [address]- 9865 Mar, [facility] [place] [facility] [address] [id number] [place] [address]- 5384 Mar, [facility] [place] [facility] [address] [id number] [place] [address]- 8210 Dec, [facility] [place] [facility] [address] [id number] [place] [address]- 4805 Nov, [facility] [place] [facility] [address] [id number], [place] [address]- 6517 Sep, [facility] [place] [facility] [address] [id number], [place] [address]- 5481 29 Aug, 2011 [facility] [place] [facility] [address] [id number] [place] [address]- 2871 Aug, [facility] [place] [facility] [address] [id number] [place] [address]- 7854 Aug, [facility] [place] [facility] [address] [id number] [place] [address]- 8431 Aug, [facility] [place] [facility] [address] [id number] [place] [address]- 0429 16 Aug, 2011 [facility] [place] [facility] [address] [id number] [place] [address]- 4745 Aug, [facility] [place] [facility] [address] [id number] [place] [address]- 3099 Jul, [facility] [place] [facility] [address] [id number] [place] [address]- 7992 Jul, [facility] [place] [facility] [address] [id number] [place] [address]- 0264 Jul, [facility] [place] [facility] [address] [id number] [place] [address]- 5811 May, [facility] [place] [facility] [address] [id number] [place] [address] May, [facility] [place] [facility] [address] [id number] [place] [address] Mar, [facility] [place] [facility] [address] [id number] [place] [address] 24 Mar, 2011 [facility] [place] [facility] [address] [id number] [place] [address] Mar, [facility] [place] [facility] [address] [id number] [place] [address] Mar, [facility] [place] [facility] [address] [id number] [place] [address] Dec, [facility] [place] [facility] [address] [id number] [place] [address] 14 May, 2010 [facility] [place] [facility] [address] [id number] [place] [address] May, [facility] [place] [facility] [address] [id number] [place] [address] May, [facility] [place] [facility] [address] [id number] [place] [address] 14 Mar, 2010 [facility] [id number] [place] [address] 14 [address], [address] [facility] [id number] [place] [address] Jan, [facility] [id number] [place] [address] Aug, [facility] [id number] [place] [address] May, [facility] [id number] [address] May, [facility] [id number] [place] [address] May, [facility] [id number] [address] May, [facility] [id number] [place] [address] May, [facility] [id number] [address] Mar, [facility] [id number] [place] [address] Jul, [facility] [id number] [place] [address] [address], [address] [facility] [id number] [place] [address] Mar, [facility] [id number] [place] [address] Sep, [facility] [id number] [place] [address] Jul, IMMUNIZATIONS No Known Immunizations SOCIAL HISTORY Never Assessed REASON FOR VISIT EMR[place] [place] CARE VITAL SIGNS MEDICATIONS Medication Instructions Dosage Frequency Start Date End Date Duration Status Ortho Evra 150-20 mcg/24 hr 1 PATCH by Transdermal route 1 time per week for 3 week(s) 03 Sep, 2013 Active Doxycycline Hyclate 100 mg 1 tablet by Oral route 2 times per day for 14 days Aug, Active Erythromycin 5 mg/gram (0.5 %) apply 1 cm ribbon into the lower conjunctival sac in the left eye by ophthalmic route 4 times per day for 7 days Dec, Active Metronidazole 500 mg 1 tablet by Oral route 2 times per day for 14 days Aug, Active Ortho Evra 150-35 mcg/24 hr 1 PATCH by Transdermal route 1 time per week for 3 week(s) Mar, Active Bactroban 2 % 1 liliya by Topical route 4 times per day for 10 day(s) Nov, Active Flagyl 500 mg 1 tablet by Oral route 2 times per day for 7 days Take with food, avoid alcohol Mar, Active Zithromax 250 mg 2 tablet by Oral route 1 time per day for 3 days Mar, Active RESULTS No Results PROCEDURES No Known [...]
--- OUTSIDE RECORDS SUMMARY | 2018-11-01 09:58 | XMS REPORT | Continuity of Care Document ---
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) ML 08/30/2016 08/30/2016 ONCE&1745 ALUM/MAG/SIMETH 30CC LIQ ([place] PLUS) cc 09/08/2018 09/08/2018 ONCE&1516 Problems Date Dx Coded Attending Type Code [...] LUEVANO DO V58.69 MEDICATION HIGH RISK 02/23/2008 V03.89 Meningococcal [...] GARY V58.69 MEDICATION HIGH RISK 02/23/2008 [facility] [employer]IC[employer] SPECIALIST, LIDIA A V03.89 Meningococcal, Other Specified Single Bacterial Disease 02/23/2008 [employer] [employer] MEDICINE SPECIALIST, LIDIA A V05.3 Hepatitis Viral/all 02/23/2008 [employer] [employer] MEDICINE SPECIALIST, LIDIA A V06.5 Dt, Tetanus-diphtheria [td] 02/23/2008 [employer] P[employer] MEDICINE SPECIALIST, LIDIA A V20.2 WELL CHILD, ROUTINE 02/23/2008 [employer] [employer] MEDICINE SPECIALIST, LIDIA A V58.69 MEDICATION HIGH RISK 02/23/2008 [employer] [employer] MEDICINE SPECIALIST, LIDIA A V03.89 Meningococcal, Other Specified Single Bacterial Disease 02/23/2008 RE[facility] P[employer] MEDICINE SPECIALIST, LIDIA A V05.3 Hepatitis Viral/all 02/23/2008 RE[facility] P[employer] MEDICINE SPECIALIST, LIDIA A V06.5 Dt, Tetanus-diphtheria [td] 02/23/2008 RE[facility] P[employer] MEDICINE SPECIALIST, LIDIA A V20.2 WELL CHILD, ROUTINE 02/23/2008 REFUGIO APRN, LIDIA A V58.69 MEDICATION HIGH RISK 02/23/2008 [employer] [employer] MEDICINE SPECIALIST, LIDIA A V03.89 Meningococcal, Other Specified Single Bacterial Disease 02/23/2008 RE[facility] P[employer] MEDICINE SPECIALIST, LIDIA A V05.3 Hepatitis Viral/all 02/23/2008 RE[facility] P[employer] MEDICINE SPECIALIST, LIDIA A V06.5 Dt, Tetanus-diphtheria [td] 02/23/2008 RE[facility] P[employer] MEDICINE SPECIALIST, LIDIA A V20.2 WELL CHILD, ROUTINE 02/23/2008 RE[employer] [employer] MEDICINE SPECIALIST, LIDIA A V58.69 MEDICATION HIGH RISK 02/23/2008 RE[employer] P[employer] MEDICINE SPECIALIST, LIDIA A V03.89 Meningococcal, Other Specified Single Bacterial Disease 02/23/2008 RE[facility] P[employer] MEDICINE SPECIALIST, LIDIA A V05.3 Hepatitis Viral/all 02/23/2008 REFUGIO TON, LIDIA A V06.5 Dt, Tetanus-diphtheria [td] 02/23/2008 REFUGIO TON, LIDIA A V20.2 WELL CHILD, ROUTINE 02/23/2008 REFUGIO TONJOSEFINALIDIA A V58.69 MEDICATION HIGH RISK 02/23/2008 REFUGIO TON, LIDIA A V03.89 Meningococcal, Other Specified Single Bacterial Disease 02/23/2008 REFUGIO TON, LIDIA A V05.3 Hepatitis Viral/all 02/23/2008 REFUGIO TON, LIDIA A V06.5 Dt, Tetanus-diphtheria [td] 02/23/2008 REFUGIO TON, LIDIA A V20.2 WELL CHILD, ROUTINE 02/23/2008 REFUGIO MEDINA, LIDIA A V58.69 MEDICATION HIGH RISK 02/23/2008 REFUGIO MEDINA, LIDIA A V03.89 Meningococcal, Other Specified Single Bacterial Disease 02/23/2008 REFUGIO TON, LIDIA A V05.3 Hepatitis Viral/all 02/23/2008 REFUGIO TON, LIDIA A V06.5 Dt, Tetanus-diphtheria [td] 02/23/2008 REFUGIO TON, LIDIA A V20.2 WELL CHILD, ROUTINE 02/23/2008 REFUGIO MEDINA, LIDIA A V58.69 MEDICATION HIGH RISK 02/23/2008 [...] DO K V58.69 MEDICATION HIGH RISK 02/23/2008 [facility] [employer] MEDICINE SPECIALIST, LIDIA A V03.89 Meningococcal, Other Specified Single Bacterial Disease 02/23/2008 RE[facility] P[employer] MEDICINE SPECIALIST, LIDIA A V05.3 Hepatitis Viral/all 02/23/2008 RE[facility] P[employer] MEDICINE SPECIALIST, LIDIA A V06.5 Dt, Tetanus-diphtheria [td] 02/23/2008 RE[facility] P[employer] MEDICINE SPECIALIST, LIDIA A V20.2 WELL CHILD, ROUTINE 02/23/2008 RE[facility] P[employer] MEDICINE SPECIALIST, LIDIA A V58.69 MEDICATION HIGH RISK 02/23/2008 [...] MIKE LUEVANO DO V05.3 Hepatitis Viral/all 02/23/2008 SHAWN LUEVANO DOA Vero V06.5 Dt, Tetanus-diphtheria [td] 02/23/2008 SHAWN LUEVANO DOA Vero V20.2 WELL CHILD, ROUTINE 02/23/2008 MIKE LUEVANO DO V58.69 MEDICATION HIGH RISK 02/23/2008 RE[facility] [employer] MEDICINE SPECIALIST, LIDIA A V03.89 Meningococcal, Other Specified Single Bacterial Disease 02/23/2008 RE[facility] PEDI[employer] MEDICINE SPECIALIST, LIDIA A V05.3 Hepatitis Viral/all 02/23/2008 RE[facility] PEDI[employer] MEDICINE SPECIALIST, LIDIA A V06.5 Dt, Tetanus-diphtheria [td] 02/23/2008 RE[facility] PEDI[employer]ORTS MEDICINE SPECIALIST, LIDIA A V20.2 WELL CHILD, ROUTINE 02/23/2008 RE[facility] P[employer] MEDICINE SPECIALIST, LIDIA A V58.69 MEDICATION HIGH RISK 04/30/2008 [...] MD 780.79 Malaise And Fatigue 04/30/2008 REFUGIO MEDINA LIDIA A 780.60 Fever, Unspecified 04/30/2008 REFUGIO APRN, LIDIA A 780.79 Malaise And Fatigue 04/30/2008 REFUGIO MEDINA LIDIA A 780.60 Fever, Unspecified 04/30/2008 [employer] P[employer] MEDICINE SPECIALIST, LIDIA A 780.79 Malaise And Fatigue 04/30/2008 REFUGIO MEDINA, LIDIA A 780.60 Fever, Unspecified 04/30/2008 RE[facility] P[employer] MEDICINE SPECIALIST, LIDIA A 780.79 Malaise And Fatigue 04/30/2008 REFUGIO APRN, LIDIA A 780.60 Fever, Unspecified 04/30/2008 RE[facility] P[employer] MEDICINE SPECIALIST, LIDIA A 780.79 Malaise And Fatigue 04/30/2008 REFUGIO MEDINA, LIDIA A 780.60 Fever, Unspecified 04/30/2008 REFUGIO TON, LIDIA A 780.79 Malaise And Fatigue 04/30/2008 [employer] [employer] MEDICINE SPECIALIST, LIDIA A 780.60 Fever, Unspecified 04/30/2008 [employer] [employer] MEDICINE SPECIALIST, LIDIA A 780.79 Malaise And Fatigue 04/30/2008 RAYMUNDO ADDISON MD 780.60 Fever, Unspecified 04/30/2008 RAYMUNDO ADDISON MD 780.79 Malaise And Fatigue 04/30/2008 LUEVANO DO, MIKE K 780.60 Fever, Unspecified 04/30/2008 LUEVANO DO, MIKE K 780.79 Malaise And Fatigue 04/30/2008 [facility] [employer] MEDICINE SPECIALIST, LIDIA A 780.60 Fever, Unspecified 04/30/2008 RE[facility] P[employer] MEDICINE SPECIALIST, LIDIA A 780.79 Malaise And Fatigue 04/30/2008 LUEVANO DO, MIKE K 780.60 Fever, Unspecified 04/30/2008 LUEVANO DO, MIKE K 780.79 Malaise And Fatigue 04/30/2008 LUEVANO DO, MIKE K 780.60 Fever, Unspecified 04/30/2008 LUEVANO DO, MIKE K 780.79 Malaise And Fatigue 04/30/2008 REFUGIO TON, LIDIA A 780.60 Fever, Unspecified 04/30/2008 RE[facility] P[employer] MEDICINE SPECIALIST, LIDIA A 780.79 Malaise And Fatigue 08/04/2008 [...] 08/04/2008 382.4 Unspecified Suppurative Otitis Media 08/04/2008 MIKE LUEVANO DO K 132.0 Pediculus Capitis (head Louse) 08/04/2008 MIKE LUEVANO DO 382.4 Unspecified Suppurative Otitis Media 08/04/2008 132.0 Pediculus Capitis (head Louse) 08/04/2008 382.4 Unspecified Suppurative Otitis Media 08/04/2008 132.0 Pediculus Capitis (head Louse) 08/04/2008 382.4 Unspecified Suppurative Otitis Media 08/04/2008 132.0 Pediculus Capitis (head Louse) 08/04/2008 382.4 Unspecified Suppurative Otitis Media 08/04/2008 GARY RENO MD 132.0 Pediculus Capitis (head Louse) 08/04/2008 GARY RENO MD 382.4 Unspecified Suppurative Otitis Media 08/04/2008 [facility] MEDICINE SPECIALIST, LIDIA A 132.0 Pediculus Capitis (head Louse) 08/04/2008 RE[facility] P[employer] MEDICINE SPECIALIST, LIDIA A 382.4 Unspecified Suppurative Otitis Media 08/04/2008 RE[facility] P[employer] MEDICINE SPECIALIST, LIDIA A 132.0 Pediculus Capitis (head Louse) 08/04/2008 RE[facility] P[employer] MEDICINE SPECIALIST, LIDIA A 382.4 Unspecified Suppurative Otitis Media 08/04/2008 RE[facility] P[employer] MEDICINE SPECIALIST, LIDIA A 132.0 Pediculus Capitis (head Louse) 08/04/2008 RE[facility] P[employer] MEDICINE SPECIALIST, LIDIA A 382.4 Unspecified Suppurative Otitis Media 08/04/2008 RE[facility] P[employer] MEDICINE SPECIALIST, LIDIA A 132.0 Pediculus Capitis (head Louse) 08/04/2008 RE[facility] P[employer] MEDICINE SPECIALIST, LIDIA A 382.4 Unspecified Suppurative Otitis Media 08/04/2008 RE[facility] P[employer] MEDICINE SPECIALIST, LIDIA A 132.0 Pediculus Capitis (head Louse) 08/04/2008 RE[facility] P[employer]ORTS MEDICINE SPECIALIST, LIDIA A 382.4 Unspecified Suppurative Otitis Media 08/04/2008 RE[facility] PEDI[employer]OR[employer] MEDICINE SPECIALIST, LIDIA A 132.0 Pediculus Capitis (head Louse) 08/04/2008 RE[facility] P[employer] MEDICINE SPECIALIST, LIDIA A 382.4 Unspecified Suppurative Otitis Media [...] RENO MD 300.4 Mo Dysthymic Disorder 12/02/2008 JOSEFINA HUFF APRNIDI A 300.4 Mo Dysthymic Disorder 12/02/2008 REFUGIO MEDINA, LIDIA A 300.4 Mo Dysthymic Disorder 12/02/2008 REFUGIO MEDINA, LIDIA A 300.4 Mo Dysthymic Disorder 12/02/2008 REFUGIO MEDINA, LIDIA A 300.4 Mo Dysthymic Disorder 12/02/2008 JOSEFINA HUFF APRNIDI A 300.4 Mo Dysthymic Disorder 12/02/2008 REFUGIO MEDINA, LIDIA A 300.4 Mo Dysthymic Disorder 12/02/2008 RAYMUNDO ADDISON MD 300.4 Mo Dysthymic Disorder 12/02/2008 MIKE LUEVANO DO 300.4 Mo Dysthymic Disorder 12/02/2008 REFUGIO MEDINA, LIDIA A 300.4 Mo Dysthymic Disorder 12/02/2008 MIKE LUEVANO DO K 300.4 Mo Dysthymic Disorder 12/02/2008 LUEVANO SHAWN GARSIAA K 300.4 Mo Dysthymic Disorder 12/02/2008 REFUGIO [...] GARY RENO MD 789.00 Abdominal Pain 05/02/2009 LIDIA HUFF APRN A 789.00 Abdominal Pain 05/02/2009 LIDIA HUFF APRN A 789.00 Abdominal Pain 05/02/2009 LIDIA HUFF APRN A 789.00 Abdominal Pain 05/02/2009 LIDIA HUFF APRN A 789.00 Abdominal Pain 05/02/2009 REFUGIO MEDINA, LIDIA A 789.00 Abdominal Pain 05/02/2009 REFUGIO TON, LIDIA A 789.00 Abdominal Pain 05/02/2009 RAYMUNDO ADDISON MD 789.00 Abdominal Pain 05/02/2009 CHLOÉ GARSIA, MIKE K 789.00 Abdominal Pain 05/02/2009 REFUGIO MEDINA, LIDIA A 789.00 Abdominal Pain 05/02/2009 CHLOÉ GARSIA, MIKE K 789.00 Abdominal Pain 05/02/2009 CHLOÉ GARSIA, MIKE K 789.00 Abdominal Pain 05/02/2009 REFUGIO MEDINA, LIDIA A 789.00 Abdominal Pain 06/02/2009 373.11 [...] hordeolum Externum) 06/02/2009 682.9 Cellulitis 06/02/2009 CHLOÉ GARSIASHAWNA K 373.11 Stye (hordeolum Externum) 06/02/2009 LUEVANO , MIKE K 682.9 Cellulitis 06/02/2009 373.11 Stye ( hordeolum Externum) 06/02/2009 682.9 Cellulitis 06/02/2009 373.11 Stye ( hordeolum Externum) 06/02/2009 682.9 Cellulitis 06/02/2009 373.11 Stye ( hordeolum Externum) 06/02/2009 682.9 Cellulitis 06/02/2009 GARY RENO MD 373.11 Stye (hordeolum Externum) 06/02/2009 GARY RENO MD 682.9 Cellulitis 06/02/2009 [facility] MEDICINE SPECIALIST, LIDIA A 373.11 Stye (hordeolum Externum) 06/02/2009 RE[facility] PEDI[employer] MEDICINE SPECIALIST, LIDIA A 682.9 Cellulitis 06/02/2009 RE[facility] PEDI[employer] MEDICINE SPECIALIST, LIDIA A 373.11 Stye (hordeolum Externum) 06/02/2009 RE[facility] PEDI[employer]ORTS MEDICINE SPECIALIST, LIDIA A 682.9 Cellulitis 06/02/2009 RE[employer] P[employer]ORTS MEDICINE SPECIALIST, LIDIA A 373.11 Stye (hordeolum Externum) 06/02/2009 RE[facility] PEDI[employer]ORTS MEDICINE SPECIALIST, LIDIA A 682.9 Cellulitis 06/02/2009 RE[facility] PEDI[employer]OR[employer] MEDICINE SPECIALIST, LIDIA A 373.11 Stye (hordeolum Externum) 06/02/2009 RE[employer] PEDI[employer] MEDICINE SPECIALIST, LIDIA A 682.9 Cellulitis 06/02/2009 RE[facility] P[employer] MEDICINE SPECIALIST, LIDIA A 373.11 Stye (hordeolum Externum) 06/02/2009 RE[facility] PEDI[employer]ORTS MEDICINE SPECIALIST, LIDIA A 682.9 Cellulitis 06/02/2009 RE[facility] P[employer]OR[employer] MEDICINE SPECIALIST, LIDIA A 373.11 Stye (hordeolum Externum) 06/02/2009 RE[facility] PEDI[employer] MEDICINE SPECIALIST, LIDIA A 682.9 Cellulitis 06/02/2009 AZAEL BECKER, RAYMUNDO 373.11 Stye (hordeolum Externum) 06/02/2009 AZAEL BECKER, RAYMUNDO 682.9 Cellulitis 06/02/2009 MIKE LUEVANO DO K 373.11 Stye (hordeolum Externum) 06/02/2009 LUEVANO DOMIKE K 682.9 Cellulitis 06/02/2009 RE[facility] MEDICINE SPECIALIST, LIDIA A 373.11 Stye (hordeolum Externum) 06/02/2009 RE[facility] PEDI[employer] MEDICINE SPECIALIST, LIDIA A 682.9 Cellulitis 06/02/2009 SHAWN LUEVANO DOA K 373.11 Stye (hordeolum Externum) 06/02/2009 LUEVANO DOSHAWNA K 682.9 Cellulitis 06/02/2009 LUEVANO SHAWN GARSIAA K 373.11 Stye (hordeolum Externum) 06/02/2009 LUEVANO MIKE GARSIA K 682.9 Cellulitis 06/02/2009 REFUGIO TON, LIDIA A 373.11 Stye (hordeolum Externum) 06/02/2009 REFUGIOJODIE TON, LIDIA A 682.9 Cellulitis 08/18/2009 307.20 TIC [...] 08/18/2009 781.0 Abnormal Involuntary Movements 08/18/2009 LUEVANO DOMIKE K 307.20 TIC DISORDER 08/18/2009 LUEVANO DOMIKE K 781.0 Abnormal Involuntary Movements 08/18/2009 307.20 TIC DISORDER 08/18/2009 781.0 Abnormal Involuntary Movements 08/18/2009 307.20 TIC DISORDER 08/18/2009 781.0 Abnormal Involuntary Movements 08/18/2009 307.20 TIC DISORDER 08/18/2009 781.0 Abnormal Involuntary Movements 08/18/2009 GARY RENO MD 307.20 TIC DISORDER 08/18/2009 GARY RENO MD 781.0 Abnormal Involuntary Movements 08/18/2009 REFUGIOJODIE MEDINA, LIDIA A 307.20 TIC DISORDER 08/18/2009 REFUGIO TON, LIDIA A 781.0 Abnormal Involuntary Movements 08/18/2009 RE[facility]IO PEDI[employer]IC [employer]TS MEDICINE SPECIALIST, LIDIA A 307.20 TIC DISORDER 08/18/2009 REFUGIO PEDI[employer]IC SPORTS MEDICINE SPECIALIST, LIDIA A 781.0 Abnormal Involuntary Movements 08/18/2009 RE[employer]IO PEDI[employer]IC [employer]TS MEDICINE SPECIALIST, LIDIA A 307.20 TIC DISORDER 08/18/2009 RE[employer] PEDI[employer]IC SPORTS MEDICINE SPECIALIST, LIDIA A 781.0 Abnormal Involuntary Movements 08/18/2009 RE[employer]IO PEDI[employer]IC [employer]ORTS MEDICINE SPECIALIST, LIDIA A 307.20 TIC DISORDER 08/18/2009 RE[facility]IO PEDI[employer]IC [employer]ORTS MEDICINE SPECIALIST, LIDIA A 781.0 Abnormal Involuntary Movements 08/18/2009 RE[employer]IO PEDI[employer]IC [employer]ORTS MEDICINE SPECIALIST, LIDIA A 307.20 TIC DISORDER 08/18/2009 RE[facility] PEDI[employer]TS MEDICINE SPECIALIST, LIDIA A 781.0 Abnormal Involuntary Movements 08/18/2009 RE[facility] PEDI[employer]IC [employer]ORTS MEDICINE SPECIALIST, LIDIA A 307.20 TIC DISORDER 08/18/2009 RE[facility] P[employer] MEDICINE SPECIALIST, LIDIA A 781.0 Abnormal Involuntary Movements 08/18/2009 RAYMUNDO ADDISON MD 307.20 TIC DISORDER 08/18/2009 RAYMUNDO ADDISON MD 781.0 Abnormal Involuntary Movements 08/18/2009 LUEVANO DO, MIKE K 307.20 TIC DISORDER 08/18/2009 LUEVANO DO, MIKE K 781.0 Abnormal Involuntary Movements 08/18/2009 RE[facility] [employer] MEDICINE SPECIALIST, LIDIA A 307.20 TIC DISORDER 08/18/2009 RE[facility] P[employer] MEDICINE SPECIALIST, LIDIA A 781.0 Abnormal Involuntary Movements 08/18/2009 LUEVANO DO, MIKE K 307.20 TIC DISORDER 08/18/2009 LUEVANO DO, MIKE K 781.0 Abnormal Involuntary Movements 08/18/2009 LUEVANO DO, MIKE K 307.20 TIC DISORDER 08/18/2009 LUEVANO DO, MIKE K 781.0 Abnormal Involuntary Movements 08/18/2009 RE[facility] [employer] MEDICINE SPECIALIST, LIDIA A 307.20 TIC DISORDER 08/18/2009 RE[employer] P[employer] MEDICINE SPECIALIST, LIDIA A 781.0 Abnormal Involuntary Movements 10/05/2009 [...] Upper Respiratory Infections Of Unspecified Site 10/05/2009 REFUGIOJODIE MEDINA, LIDIA A 465.9 Acute Upper Respiratory Infections Of Unspecified Site 10/05/2009 RE[employer] [employer] MEDICINE SPECIALIST, LIDIA A 465.9 Acute Upper Respiratory Infections Of Unspecified Site 10/05/2009 RE[employer] P[employer] MEDICINE SPECIALIST, LIDIA A 465.9 Acute Upper Respiratory Infections Of Unspecified Site 10/05/2009 RE[employer] P[employer]OR[employer] MEDICINE SPECIALIST, LIDIA A 465.9 Acute Upper Respiratory Infections Of Unspecified Site 10/05/2009 RE[employer] P[employer] MEDICINE SPECIALIST, LIDIA A 465.9 Acute Upper Respiratory Infections Of Unspecified Site 10/05/2009 RE[employer] P[employer] MEDICINE SPECIALIST, LIDIA A 465.9 Acute Upper Respiratory Infections Of Unspecified Site 10/05/2009 RAYMUNDO ADDISON MD 465.9 Acute Upper Respiratory Infections Of Unspecified Site 10/05/2009 LUEVANO DO, MIKE K 465.9 Acute Upper Respiratory Infections Of Unspecified Site 10/05/2009 RE[employer] P[employer] MEDICINE SPECIALIST, LIDIA A 465.9 Acute Upper Respiratory Infections Of Unspecified Site 10/05/2009 LUEVANO DO, MIKE K 465.9 Acute Upper Respiratory Infections Of Unspecified Site 10/05/2009 LUEVANO DO, MIKE K 465.9 Acute Upper Respiratory Infections Of Unspecified Site 10/05/2009 RE[facility] [employer] MEDICINE SPECIALIST, LIDIA A 465.9 Acute Upper Respiratory Infections Of Unspecified Site 10/06/2009 477.9 RHINITIS 10/06/2009 477.9 RHINITIS 10/06/2009 477.9 RHINITIS 10/06/2009 477.9 RHINITIS 10/06/2009 GARY RENO MD 477.9 RHINITIS 10/06/2009 477.9 RHINITIS 10/06/2009 MIKE LUEVANO DO 477.9 RHINITIS 10/06/2009 477.9 RHINITIS 10/06/2009 477.9 RHINITIS 10/06/2009 477.9 RHINITIS 10/06/2009 GARY RENO MD 477.9 RHINITIS 10/06/2009 RE[facility] P[employer] MEDICINE SPECIALIST, LIDIA A 477.9 RHINITIS 10/06/2009 REFUGIO PEDI[employer]IC SPORTS MEDICINE SPECIALIST, LIDIA A 477.9 RHINITIS 10/06/2009 REF[employer]IO PEDI[employer]IC SPORTS MEDICINE SPECIALIST, LIDIA A 477.9 RHINITIS 10/06/2009 RE[facility]IO PEDI[employer]IC SPORTS MEDICINE SPECIALIST, LIDIA A 477.9 RHINITIS 10/06/2009 RE[employer] PEDI[employer]IC SPORTS MEDICINE SPECIALIST, LIDIA A 477.9 RHINITIS 10/06/2009 RE[employer] PEDI[employer]ORTS MEDICINE SPECIALIST, LIDIA A 477.9 RHINITIS 10/06/2009 AZAEL BECKER, RAYMUNDO 477.9 RHINITIS 10/06/2009 LUEVANO , MIKE Pham 477.9 RHINITIS 10/06/2009 RE[facility] P[employer] MEDICINE SPECIALIST, LIDIA A 477.9 RHINITIS 10/06/2009 LUEVANO DO, MIKE K 477.9 RHINITIS 10/06/2009 LUEVANO DO, MIKE K 477.9 RHINITIS 10/06/2009 RE[facility]UGIO P[employer] MEDICINE SPECIALIST, LIDIA A 477.9 RHINITIS 10/20/2009 314.01 ADHD COMBINED 10/20/2009 314.01 ADHD COMBINED 10/20/2009 314.01 ADHD COMBINED 10/20/2009 314.01 ADHD COMBINED 10/20/2009 GARY RENO MD 314.01 ADHD COMBINED 10/20/2009 314.01 ADHD COMBINED 10/20/2009 MIKE LUEVANO DO 314.01 ADHD COMBINED 10/20/2009 314.01 ADHD COMBINED 10/20/2009 314.01 ADHD COMBINED 10/20/2009 314.01 ADHD COMBINED 10/20/2009 GARY RENO MD 314.01 ADHD COMBINED 10/20/2009 RE[facility] P[employer] MEDICINE SPECIALIST, LIDIA A 314.01 ADHD COMBINED 10/20/2009 REFUGIO PEDIATRIC SPORTS MEDICINE SPECIALIST, LIDIA A 314.01 ADHD COMBINED 10/20/2009 REFUGIO PEDI[employer]IC SPORTS MEDICINE SPECIALIST, LIDIA A 314.01 ADHD COMBINED 10/20/2009 REFUGIO PEDIATRIC SPORTS MEDICINE SPECIALIST, LIDIA A 314.01 ADHD COMBINED 10/20/2009 REF[employer]IO PEDIAT[employer]IC SPORTS MEDICINE SPECIALIST, LIDIA A 314.01 ADHD COMBINED 10/20/2009 RE[employer]IO PEDI[employer]IC [employer]ORTS MEDICINE SPECIALIST, LIDIA A 314.01 ADHD COMBINED 10/20/2009 AZAEL BECKER, RAYMUNDO 314.01 ADHD COMBINED 10/20/2009 LUEVANO MIKE GARSIA K 314.01 ADHD COMBINED 10/20/2009 RE[facility] P[employer] MEDICINE SPECIALIST, LIDIA A 314.01 ADHD COMBINED 10/20/2009 MIKE LUEVANO DO K 314.01 ADHD COMBINED 10/20/2009 LUEVANO MIKE GARSIA K 314.01 ADHD COMBINED 10/20/2009 RE[facility]UGIO PEDI[employer] MEDICINE SPECIALIST, LIDIA A 314.01 ADHD COMBINED 11/24/2009 443.0 RAYNAUD'S SYNDROME 11/24/2009 443.0 RAYNAUD'S SYNDROME 11/24/2009 443.0 RAYNAUD'S SYNDROME 11/24/2009 443.0 RAYNAUD'S SYNDROME 11/24/2009 GARY RENO MD 443.0 RAYNAUD'S SYNDROME 11/24/2009 443.0 RAYNAUD'S SYNDROME 11/24/2009 MIKE LUEVANO DO K 443.0 RAYNAUD'S SYNDROME 11/24/2009 443.0 RAYNAUD'S SYNDROME 11/24/2009 443.0 RAYNAUD'S SYNDROME 11/24/2009 443.0 RAYNAUD'S SYNDROME 11/24/2009 GARY RENO MD 443.0 RAYNAUD'S SYNDROME 11/24/2009 REFUGIO PEDI[employer]RIC SPORTS MEDICINE SPECIALIST, LIDIA A 443.0 RAYNAUD'S SYNDROME 11/24/2009 REFUGIO PEDIATRIC SPORTS MEDICINE SPECIALIST, LIDIA A 443.0 RAYNAUD'S SYNDROME 11/24/2009 REFUGIO PEDIATRIC SPORTS MEDICINE SPECIALIST, LIDIA A 443.0 RAYNAUD'S SYNDROME 11/24/2009 REFUGIO PEDIATRIC SPORTS MEDICINE SPECIALIST, LIDIA A 443.0 RAYNAUD'S SYNDROME 11/24/2009 REFUGIO PEDIATRIC SPORTS MEDICINE SPECIALIST, LIDIA A 443.0 RAYNAUD'S SYNDROME 11/24/2009 REFUGIO PEDIATRIC SPORTS MEDICINE SPECIALIST, LIDIA A 443.0 RAYNAUD'S SYNDROME 11/24/2009 RAYMUNDO ADDISON MD 443.0 RAYNAUD'S SYNDROME 11/24/2009 MIKE LUEVANO DO K 443.0 RAYNAUD'S SYNDROME 11/24/2009 REFUGIO APRN, LIDIA A 443.0 RAYNAUD'S SYNDROME 11/24/2009 SHAWN LUEVANO DOA K 443.0 RAYNAUD'S SYNDROME 11/24/2009 SHAWN LUEVANO DOA K 443.0 RAYNAUD'S SYNDROME 11/24/2009 REFUGIO MEDINA, LIDIA A 443.0 RAYNAUD'S SYNDROME 04/13/2010 599.0 Urinary Tract Infection 04/13/2010 599.0 Urinary Tract Infection 04/13/2010 599.0 Urinary Tract Infection 04/13/2010 599.0 Urinary Tract Infection 04/13/2010 GARY RENO MD 599.0 Urinary Tract Infection 04/13/2010 599.0 Urinary Tract Infection 04/13/2010 LUEVANO DO, MIKE K 599.0 Urinary Tract Infection 04/13/2010 599.0 Urinary Tract Infection 04/13/2010 599.0 Urinary Tract Infection 04/13/2010 599.0 Urinary Tract Infection 04/13/2010 GARY RENO MD 599.0 Urinary Tract Infection 04/13/2010 [employer]IST, LIDIA A 599.0 Urinary Tract Infection 04/13/2010 [employer]IC[employer] SPECIALIST, LIDIA A 599.0 Urinary Tract Infection 04/13/2010 [employer]IC[employer] SPECIALIST, LIDIA A 599.0 Urinary Tract Infection 04/13/2010 [employer]IC[employer] SPECIALIST, LIDIA A 599.0 Urinary Tract Infection 04/13/2010 [employer]IC[employer] SPECIALIST, LIDIA A 599.0 Urinary Tract Infection 04/13/2010 [employer]IC[employer] SPECIALIST, LIDIA A 599.0 Urinary Tract Infection 04/13/2010 AZAEL BECKER, RAYMUNDO 599.0 Urinary Tract Infection 04/13/2010 LUEVANO DO, MIKE K 599.0 Urinary Tract Infection 04/13/2010 [employer] SPECIALIST, LIDIA A 599.0 Urinary Tract Infection 04/13/2010 LUEVANO DO, MIKE K 599.0 Urinary Tract Infection 04/13/2010 LUEVANO DO, MIKE K 599.0 Urinary Tract Infection 04/13/2010 [employer]IST, LIDIA A 599.0 Urinary Tract Infection 06/05/2010 110.5 Tinea Corporis 06/05/2010 110.5 Tinea Corporis 06/05/2010 110.5 Tinea Corporis 06/05/2010 110.5 Tinea Corporis 06/05/2010 GARY RENO MD 110.5 Tinea Corporis 06/05/2010 110.5 Tinea Corporis 06/05/2010 LUEVANO MIKE GARSIA K 110.5 Tinea Corporis 06/05/2010 110.5 Tinea Corporis 06/05/2010 110.5 Tinea Corporis 06/05/2010 110.5 Tinea Corporis 06/05/2010 GARY RENO MD 110.5 Tinea Corporis 06/05/2010 [employer]IST, LIDIA A 110.5 Tinea Corporis 06/05/2010 REFUGIOJODIE MEDINA, LIDIA A 110.5 Tinea Corporis 06/05/2010 [employer]IST, LIDIA A 110.5 Tinea Corporis 06/05/2010 [employer]IST, LIDIA A 110.5 Tinea Corporis 06/05/2010 [employer]IC[employer] SPECIALIST, LIDIA A 110.5 Tinea Corporis 06/05/2010 [employer] SPECIALIST, LIDIA A 110.5 Tinea Corporis 06/05/2010 RAYMUNDO ADDISON MD 110.5 Tinea Corporis 06/05/2010 LUEVANO DOMIKE K 110.5 Tinea Corporis 06/05/2010 [employer]IST, LIDIA A 110.5 Tinea Corporis 06/05/2010 LUEVANO DO, MIKE K 110.5 Tinea Corporis 06/05/2010 LUEVANO DO, MIKE K 110.5 Tinea Corporis 06/05/2010 [employer]IST, LIDIA A 110.5 Tinea Corporis 08/07/2010 461.9 Sinusitis Acute 08/07/2010 461.9 Sinusitis Acute 08/07/2010 461.9 Sinusitis Acute 08/07/2010 461.9 Sinusitis Acute 08/07/2010 GARY RENO MD 461.9 Sinusitis Acute 08/07/2010 461.9 Sinusitis Acute 08/07/2010 MIKE LUEVANO DO 461.9 Sinusitis Acute 08/07/2010 461.9 Sinusitis Acute 08/07/2010 461.9 Sinusitis Acute 08/07/2010 461.9 Sinusitis Acute 08/07/2010 GARY RENO MD 461.9 Sinusitis Acute 08/07/2010 [employer]IST, LIDIA A 461.9 Sinusitis Acute 08/07/2010 [employer]IST, LIDIA A 461.9 Sinusitis Acute 08/07/2010 [employer]IST, LIDIA A 461.9 Sinusitis Acute 08/07/2010 [employer]IST, LIDIA A 461.9 Sinusitis Acute 08/07/2010 [employer] SPECIALIST, LIDIA A 461.9 Sinusitis Acute 08/07/2010 [employer]IST, LIDIA A 461.9 Sinusitis Acute 08/07/2010 RAYMUNDO ADDISON MD 461.9 Sinusitis Acute 08/07/2010 LUEVANO DO, MIKE K 461.9 Sinusitis Acute 08/07/2010 [employer]IST, LIDIA A 461.9 Sinusitis Acute 08/07/2010 LUEVANO DO, MIKE K 461.9 Sinusitis Acute 08/07/2010 LUEVANO DO, MIKE K 461.9 Sinusitis Acute 08/07/2010 [employer]IST, LIDIA A 461.9 Sinusitis Acute 10/02/2010 692.9 [...] MD 692.9 Dermatitis Contact Unspecified 10/02/2010 [employer]IST, LIDIA A 692.9 Dermatitis Contact Unspecified 10/02/2010 [employer]IC[employer]IST, LIDIA A 692.9 Dermatitis Contact Unspecified 10/02/2010 [facility] SPECIALIST, LIDIA A 692.9 Dermatitis Contact Unspecified 10/02/2010 [facility]IC[facility] SPECIALIST, LIDIA A 692.9 Dermatitis Contact Unspecified 10/02/2010 [facility]IC[facility] SPECIALIST, LIDIA A 692.9 Dermatitis Contact Unspecified 10/02/2010 [facility]IC[facility] SPECIALIST, LIDIA A 692.9 Dermatitis Contact Unspecified 10/02/2010 AZAEL BECKER, RAYMUNDO 692.9 Dermatitis Contact Unspecified 10/02/2010 LUEVANO DO, MIKE K 692.9 Dermatitis Contact Unspecified 10/02/2010 [facility]IC[facility] SPECIALIST, LIDIA A 692.9 Dermatitis Contact Unspecified 10/02/2010 LUEVANO DO, MIKE K 692.9 Dermatitis Contact Unspecified 10/02/2010 LUEVANO DO, MIKE K 692.9 Dermatitis Contact Unspecified 10/02/2010 [facility]IC[facility] SPECIALIST, LIDIA A 692.9 Dermatitis Contact Unspecified 11/30/2010 [...] GARY 057.9 Viral Exanthem Unspecified 11/30/2010 [facility]IC[facility] SPECIALIST, LIDIA A 057.9 Viral Exanthem Unspecified 11/30/2010 [facility]IC[facility] SPECIALIST, LIDIA A 057.9 Viral Exanthem Unspecified 11/30/2010 [facility]IC[facility] SPECIALIST, LIDIA A 057.9 Viral Exanthem Unspecified 11/30/2010 [facility] MEDICINE SPECIALIST, LIDIA A 057.9 Viral Exanthem Unspecified 11/30/2010 [facility] MEDICINE SPECIALIST, LIDIA A 057.9 Viral Exanthem Unspecified 11/30/2010 [facility] MEDIC[facility] SPECIALIST, LIDIA A 057.9 Viral Exanthem Unspecified 11/30/2010 RAYMUNDO ADDISON MD 057.9 Viral Exanthem Unspecified 11/30/2010 MIKE LUEVANO DO 057.9 Viral Exanthem Unspecified 11/30/2010 [facility]IC[facility] SPECIALIST, LIDIA A 057.9 Viral Exanthem Unspecified 11/30/2010 MIKE LUEVANO DO K 057.9 Viral Exanthem Unspecified 11/30/2010 MIKE LUEVANO DO K 057.9 Viral Exanthem Unspecified 11/30/2010 [facility]IC[facility] SPECIALIST, LIDIA A 057.9 Viral Exanthem Unspecified 12/04/2010 [...] 053.9 Herpes Zoster Without Complication 12/04/2010 [facility]IC[facility] SPECIALIST, LIDIA A 053.9 Herpes Zoster Without Complication 12/04/2010 [facility]IC[facility] SPECIALIST, LIDIA A 053.9 Herpes Zoster Without Complication 12/04/2010 [facility]IC[facility] SPECIALIST, LIDIA A 053.9 Herpes Zoster Without Complication 12/04/2010 [facility]IC[facility] SPECIALIST, LIDIA A 053.9 Herpes Zoster Without Complication 12/04/2010 [facility]IC[facility] SPECIALIST, LIDIA A 053.9 Herpes Zoster Without Complication 12/04/2010 [facility]IC[facility] SPECIALIST, LIDIA A 053.9 Herpes Zoster Without Complication 12/04/2010 AZAEL BECKER, RAYMUNDO 053.9 Herpes Zoster Without Complication 12/04/2010 LUEVANO DO, MIKE K 053.9 Herpes Zoster Without Complication 12/04/2010 [facility]IC[facility] SPECIALIST, LIDIA A 053.9 Herpes Zoster Without Complication 12/04/2010 LUEVANO DO, MIKE K 053.9 Herpes Zoster Without Complication 12/04/2010 LUEVANO DO, MIKE K 053.9 Herpes Zoster Without Complication 12/04/2010 [facility] SPECIALIST, LIDIA A 053.9 Herpes Zoster Without Complication [...] And Unspecified Sites Without Infection 01/16/2011 GARY RNEO MD 682.9 Cellulitis And Abscess Of Unspecified [...] And Abscess Of Unspecified Sites 01/16/2011 [facility] SPECIALIST, LIDIA A 919.4 Insect Bite Nonvenomous Of Other Multiple And Unspecified Sites Without Infection 01/16/2011 [facility] SPECIALIST, LIDIA A 682.9 Cellulitis And Abscess Of Unspecified Sites 01/16/2011 [facility]IC[facility] SPECIALIST, LIDIA A 919.4 Insect Bite Nonvenomous Of Other Multiple And Unspecified Sites Without Infection 01/16/2011 [facility] SPECIALIST, LIDIA A 682.9 Cellulitis And Abscess Of Unspecified Sites 01/16/2011 [facility]IC[facility] SPECIALIST, LIDIA A 919.4 Insect Bite Nonvenomous Of Other Multiple And Unspecified Sites Without Infection 01/16/2011 REFUGIO TON, LIDIA A 682.9 Cellulitis And Abscess Of Unspecified Sites 01/16/2011 [facility]IC[facility] SPECIALIST, LIDIA A 919.4 Insect Bite Nonvenomous Of [...] And Unspecified Sites Without Infection 01/16/2011 [facility]IC[facility] SPECIALIST, LIDIA A 682.9 Cellulitis And Abscess Of Unspecified Sites 01/16/2011 [facility]IC[facility] SPECIALIST, LIDIA A 919.4 Insect Bite Nonvenomous Of Other Multiple And Unspecified Sites Without Infection 04/09/2011 626.8 DUB 04/09/2011 626.8 Dub 04/09/2011 626.8 Dub 04/09/2011 626.8 Dub 04/09/2011 GARY RENO MD 626.8 Dub 04/09/2011 626.8 Dub 04/09/2011 LUEVANO DO, MIKE K 626.8 Dub 04/09/2011 626.8 Dub 04/09/2011 626.8 Dub 04/09/2011 626.8 Dub 04/09/2011 GARY RENO MD 626.8 Dub 04/09/2011 [facility] SPECIALIST, LIDIA A 626.8 Dub 04/09/2011 [facility]IC[facility] SPECIALIST, LIDIA A 626.8 Dub 04/09/2011 [facility]IC[facility] SPECIALIST, LIDIA A 626.8 Dub 04/09/2011 [facility]ICINE SPECIALIST, LIDIA A 626.8 Dub 04/09/2011 [facility]IC[facility] SPECIALIST, LIDIA A 626.8 Dub 04/09/2011 [facility]ICINE SPECIALIST, LIDIA A 626.8 Dub 04/09/2011 RAYMUNDO ADDISON MD 626.8 Dub 04/09/2011 LUEVANO DO, MIKE K 626.8 Dub 04/09/2011 [facility]IC[facility] SPECIALIST, LIDIA A 626.8 Dub 04/09/2011 LUEVANO DO, MIKE K 626.8 Dub 04/09/2011 LUEVANO DO, MIKE K 626.8 Dub 04/09/2011 [facility] SPECIALIST, LIDIA A 626.8 Dub 04/23/2011 599.0 URINARY TRACT INFECTION 04/23/2011 789.00 ABDOMINAL PAIN UNSPECIFIED SITE 04/23/2011 599.0 Urinary Tract Infection 04/23/2011 789.00 Abdominal Pain Unspecified Site 04/23/2011 599.0 Urinary Tract Infection 04/23/2011 789.00 Abdominal Pain Unspecified Site 04/23/2011 599.0 Urinary Tract Infection 04/23/2011 789.00 Abdominal Pain Unspecified Site 04/23/2011 GARY RENO MD 599.0 Urinary Tract Infection 04/23/2011 SHADIA BECKER, GARY 789.00 Abdominal Pain Unspecified Site 04/23/2011 599.0 [...] 04/23/2011 789.00 Abdominal Pain Unspecified Site 04/23/2011 SHADIA BECKER, GARY 599.0 Urinary Tract Infection 04/23/2011 SHADIA BECKER, GARY 789.00 Abdominal Pain Unspecified Site 04/23/2011 [facility] SPECIALIST, LIDIA A 599.0 Urinary Tract Infection 04/23/2011 [facility] MEDICINE SPECIALIST, LIDIA A 789.00 Abdominal Pain Unspecified Site 04/23/2011 [facility]IC[facility] SPECIALIST, LIDIA A 599.0 Urinary Tract Infection 04/23/2011 [facility] MEDIC[facility] SPECIALIST, LIDIA A 789.00 Abdominal Pain Unspecified Site 04/23/2011 [facility]IC[facility] SPECIALIST, LIDIA A 599.0 Urinary Tract Infection 04/23/2011 [facility] MEDICINE SPECIALIST, LIDIA A 789.00 Abdominal Pain Unspecified Site 04/23/2011 [facility]IC[facility] SPECIALIST, LIDIA A 599.0 Urinary Tract Infection 04/23/2011 [facility] MEDICINE SPECIALIST, LIDIA A 789.00 Abdominal Pain Unspecified Site 04/23/2011 [facility] MEDICINE SPECIALIST, LIDIA A 599.0 Urinary Tract Infection 04/23/2011 [facility] MEDICINE SPECIALIST, LIDIA A 789.00 Abdominal Pain Unspecified Site 04/23/2011 [facility] MEDICINE SPECIALIST, LIDIA A 599.0 Urinary Tract Infection 04/23/2011 [facility] MEDICINE SPECIALIST, LIDIA A 789.00 Abdominal Pain Unspecified Site 04/23/2011 AZAEL BECKER, RAYMUNDO 599.0 Urinary Tract Infection 04/23/2011 AZAEL BECKER, RAYMUNDO 789.00 Abdominal Pain Unspecified Site 04/23/2011 LUEVANO DO, MIKE K 599.0 Urinary Tract Infection 04/23/2011 LUEVANO DO, MIKE K 789.00 Abdominal Pain Unspecified Site 04/23/2011 [facility]IC[facility] SPECIALIST, LIDIA A 599.0 Urinary Tract Infection 04/23/2011 [facility] MEDICINE SPECIALIST, LIDIA A 789.00 Abdominal Pain Unspecified Site 04/23/2011 LUEVANO DO, MIKE K 599.0 Urinary Tract Infection 04/23/2011 LUEVANO DO, MIKE K 789.00 Abdominal Pain Unspecified Site 04/23/2011 LUEVANO DO, MIKE K 599.0 Urinary Tract Infection 04/23/2011 LUEVANO DO, MIKE K 789.00 Abdominal Pain Unspecified Site 04/23/2011 REFUGIO TON, LIDIA A 599.0 Urinary Tract Infection 04/23/2011 [facility] MEDICINE SPECIALIST, LIDIA A 789.00 Abdominal Pain Unspecified Site [...] BECKER, GARY 626.4 IRREGULAR MENSTRUAL CYCLE 07/10/2011 SHADIA BECKER, GARY V25.9 Contraception Management 07/10/2011 SHADIA BECKER, GARY V65.45 Std Counseling 07/10/2011 SHADIA BECKER, GARY V69.2 HIGH-RISK SEXUAL BEHAVIOR 07/10/2011 SHADIA BECKER, GARY V72.41 Test Negative Result 07/10/2011 SHADIA BECKER, GARY V74.5 Std Screen 07/10/2011 626.4 IRREGULAR MENSTRUAL CYCLE 07/10/2011 V25.9 Contraception Management 07/10/2011 V65.45 Std Counseling 07/10/2011 V69.2 HIGH-RISK SEXUAL BEHAVIOR 07/10/2011 V72.41 Test Negative Result 07/10/2011 V74.5 Std Screen 07/10/2011 MIKE LUEVANO DO 626.4 IRREGULAR MENSTRUAL CYCLE 07/10/2011 MIKE LUEVANO DO V25.9 Contraception Management 07/10/2011 MIKE LUEVANO DO V65.45 Std Counseling 07/10/2011 MIKE LUEVANO DO V69.2 HIGH-RISK SEXUAL BEHAVIOR 07/10/2011 MIKE LUEVANO DO V72.41 Test Negative Result 07/10/2011 MIKE LUEVANO DO V74.5 Std Screen 07/10/2011 626.4 IRREGULAR MENSTRUAL [...] BECKER, GARY 626.4 IRREGULAR MENSTRUAL CYCLE 07/10/2011 SHADIA BECKER, GARY V25.9 Contraception Management 07/10/2011 SHADIA BECKER, GARY V65.45 Std Counseling 07/10/2011 SHADIA BECKER, GARY V69.2 HIGH-RISK SEXUAL BEHAVIOR 07/10/2011 SHADIA BECKER, GARY V72.41 Test Negative Result 07/10/2011 SHADIA BECKER, GARY V74.5 Std Screen 07/10/2011 REFUGIO TOLIDIA Garsia A 626.4 IRREGULAR MENSTRUAL CYCLE 07/10/2011 REFUGIOAdy MEDINA LIDIA A V25.9 Contraception Management 07/10/2011 REFUGIOAdy MEDINA LIDIA A V65.45 Std Counseling 07/10/2011 REFUGIOLIDIA Garsia APRN A V69.2 HIGH-RISK SEXUAL BEHAVIOR 07/10/2011 LIDIA HUFF APRN A V72.41 Test Negative Result 07/10/2011 REFUGIOLIDIA FELICIANO APRN A V74.5 Std Screen 07/10/2011 REFUGIOLIDIA Garsia APRN A 626.4 IRREGULAR MENSTRUAL CYCLE 07/10/2011 REFUGIOAdy MEDINA LIDIA A V25.9 Contraception Management 07/10/2011 REFUGIOJOSEFINA Garsia APRNIDI A V65.45 Std Counseling 07/10/2011 REFUGIOLIDIA Garsia APRN A V69.2 HIGH-RISK SEXUAL BEHAVIOR 07/10/2011 LIDIA HUFF APRN A V72.41 Test Negative Result 07/10/2011 LIDIA HUFF APRN A V74.5 Std Screen 07/10/2011 REFUGIOLIDIA Garsia APRN A 626.4 IRREGULAR MENSTRUAL CYCLE 07/10/2011 REFUGIOJOSEFINA Garsia APRNIDI A V25.9 Contraception Management 07/10/2011 REFUGIOJOSEFINA Garsia APRNIDI A V65.45 Std Counseling 07/10/2011 REFUGIOJOSEFINA Garsia APRNIDI A V69.2 HIGH-RISK SEXUAL BEHAVIOR 07/10/2011 REFUGIOJOSEFINA FELICIANO APRNIDI A V72.41 Test Negative Result 07/10/2011 JOSEFINA HUFF APRNIDI A V74.5 Std Screen 07/10/2011 JOSEFINA HUFF APRNIDI A 626.4 IRREGULAR MENSTRUAL CYCLE 07/10/2011 LIDIA [...] HUFF APRN A V74.5 Std Screen 07/10/2011 AZAEL BECKER, RAYMUNDO 626.4 IRREGULAR MENSTRUAL CYCLE 07/10/2011 RAYMUNDO ADDISON MD V25.9 Contraception Management 07/10/2011 RAYMUNDO ADDISON MD V65.45 Std Counseling 07/10/2011 RAYMUNDO ADDISON MD V69.2 HIGH-RISK SEXUAL BEHAVIOR 07/10/2011 RAYMUNDO ADDISON MD V72.41 Test Negative Result 07/10/2011 AZAEL BECKER, RAYMUNDO V74.5 Std Screen 07/10/2011 MIKE LUEVANO DO 626.4 IRREGULAR MENSTRUAL CYCLE 07/10/2011 LUEVANO DO, MIKE K V25.9 Contraception Management 07/10/2011 LUEVANO DO, MIKE K V65.45 Std Counseling 07/10/2011 LUEVANO DO, MIKE K V69.2 HIGH-RISK SEXUAL BEHAVIOR 07/10/2011 LUEVANO DO, MIKE K V72.41 Test Negative Result 07/10/2011 LUEVANO DO, MIKE K V74.5 Std Screen 07/10/2011 [facility]IC[facility] SPECIALIST, LIDIA A 626.4 IRREGULAR MENSTRUAL CYCLE 07/10/2011 [facility] MEDICINE SPECIALIST, LIDIA A V25.9 Contraception Management 07/10/2011 [facility] MEDICINE SPECIALIST, LIDIA A V65.45 Std Counseling 07/10/2011 [facility] MEDICINE SPECIALIST, LIDIA A V69.2 HIGH-RISK SEXUAL BEHAVIOR 07/10/2011 [facility] MEDICINE SPECIALIST, LIDIA A V72.41 Test Negative Result 07/10/2011 [facility] MEDICINE SPECIALIST, LIDIA A V74.5 Std Screen 07/10/2011 LUEVANO DO, MIKE K 626.4 IRREGULAR MENSTRUAL CYCLE 07/10/2011 LUEVANO DO, MIKE K V25.9 Contraception Management 07/10/2011 LUEVANO DO, MIKE K V65.45 Std Counseling 07/10/2011 LUEVANO DO, MIKE K V69.2 HIGH-RISK SEXUAL BEHAVIOR 07/10/2011 LUEVANO DO, MIKE K V72.41 Test Negative Result 07/10/2011 LUEVANO DO, MIKE K V74.5 Std Screen 07/10/2011 LUEVANO DO, MIKE K 626.4 IRREGULAR MENSTRUAL CYCLE 07/10/2011 LUEVANO DO MIKE K V25.9 Contraception Management 07/10/2011 LUEVANO DO, MIKE K V65.45 Std Counseling 07/10/2011 LUEVANO DO, MIKE K V69.2 HIGH-RISK SEXUAL BEHAVIOR 07/10/2011 LUEVANO DO, MIKE K V72.41 Test Negative Result 07/10/2011 LUEVANO DO, MIKE K V74.5 Std Screen 07/10/2011 [facility]IC[facility] SPECIALIST, LIDIA A 626.4 IRREGULAR MENSTRUAL CYCLE 07/10/2011 [facility] MEDICINE SPECIALIST, LIDIA A V25.9 Contraception Management 07/10/2011 [facility] MEDICINE SPECIALIST, LIDIA A V65.45 Std Counseling 07/10/2011 REFUGIOLIDIA Garsia APRN V69.2 HIGH-RISK SEXUAL BEHAVIOR 07/10/2011 REFUGIOLIDIA FELICIANO APRN V72.41 Test Negative Result 07/10/2011 REFUGIOLIDIA FELICIANO APRN V74.5 Std Screen 08/30/2011 256.4 POLYCYSTIC OVARIES 08/30/2011 256.4 POLYCYSTIC OVARIES 08/30/2011 256.4 POLYCYSTIC OVARIES 08/30/2011 256.4 POLYCYSTIC OVARIES 08/30/2011 GARY RENO MD 256.4 POLYCYSTIC OVARIES 08/30/2011 256.4 POLYCYSTIC OVARIES 08/30/2011 MIKE LUEVANO DO K 256.4 POLYCYSTIC OVARIES 08/30/2011 256.4 POLYCYSTIC OVARIES 08/30/2011 256.4 POLYCYSTIC OVARIES 08/30/2011 256.4 POLYCYSTIC OVARIES 08/30/2011 GARY RENO MD 256.4 POLYCYSTIC OVARIES 08/30/2011 LIDIA HUFF APRN A 256.4 POLYCYSTIC OVARIES 08/30/2011 LIDIA HUFF APRN A 256.4 POLYCYSTIC OVARIES 08/30/2011 LIDIA HUFF APRN A 256.4 POLYCYSTIC OVARIES 08/30/2011 JOSEFINA HUFF APRNIDI A 256.4 POLYCYSTIC OVARIES 08/30/2011 JOSEFINA HUFF APRNIDI A 256.4 POLYCYSTIC OVARIES 08/30/2011 JOSEFINA HUFF APRNIDI A 256.4 POLYCYSTIC OVARIES 08/30/2011 AZAEL BECKER, RAYMUNDO 256.4 POLYCYSTIC OVARIES 08/30/2011 LUEVANO DO, MIKE K 256.4 POLYCYSTIC OVARIES 08/30/2011 JOSEFINA HUFF APRNIDI A 256.4 POLYCYSTIC OVARIES 08/30/2011 LUEVANO DO, MIKE K 256.4 POLYCYSTIC OVARIES 08/30/2011 LUEVANO DO, MIKE K 256.4 POLYCYSTIC OVARIES 08/30/2011 REFUGIOAdy MEDINA LIDIA A 256.4 POLYCYSTIC OVARIES 08/30/2011 Ot 789.06 ABDOMINAL PAIN, EPIGASTRIC 09/25/2011 564.1 IRRITABLE BOWEL SYNDROME 09/25/2011 564.1 IRRITABLE BOWEL SYNDROME 09/25/2011 564.1 IRRITABLE BOWEL SYNDROME 09/25/2011 564.1 IRRITABLE BOWEL SYNDROME 09/25/2011 GARY RENO MD 564.1 IRRITABLE BOWEL SYNDROME 09/25/2011 564.1 IRRITABLE BOWEL SYNDROME 09/25/2011 LUEVANO SHAWN GARSIAA K 564.1 IRRITABLE BOWEL SYNDROME 09/25/2011 564.1 IRRITABLE BOWEL SYNDROME 09/25/2011 564.1 IRRITABLE BOWEL SYNDROME 09/25/2011 564.1 IRRITABLE BOWEL SYNDROME 09/25/2011 GARY RENO MD 564.1 IRRITABLE BOWEL SYNDROME 09/25/2011 [facility]IC[facility] SPECIALIST, LIDIA A 564.1 IRRITABLE BOWEL SYNDROME 09/25/2011 [facility] MEDICINE SPECIALIST, LIDIA A 564.1 IRRITABLE BOWEL SYNDROME 09/25/2011 [facility] MEDICINE SPECIALIST, LIDIA A 564.1 IRRITABLE BOWEL SYNDROME 09/25/2011 [facility] MEDICINE SPECIALIST, LIDIA A 564.1 IRRITABLE BOWEL SYNDROME 09/25/2011 [facility] MEDICINE SPECIALIST, LIDIA A 564.1 IRRITABLE BOWEL SYNDROME 09/25/2011 [facility] MEDICINE SPECIALIST, LIDIA A 564.1 IRRITABLE BOWEL SYNDROME 09/25/2011 AZAEL BECKER, RAYMUNDO 564.1 IRRITABLE BOWEL SYNDROME 09/25/2011 SHAWN LUEVANO DOA K 564.1 IRRITABLE BOWEL SYNDROME 09/25/2011 REFUGIO APRN, LIDIA A 564.1 IRRITABLE BOWEL SYNDROME 09/25/2011 LUEVANO SHAWN GARSIAA K 564.1 IRRITABLE BOWEL SYNDROME 09/25/2011 LUEVANO DO MIKE K 564.1 IRRITABLE BOWEL SYNDROME 09/25/2011 REFUGIO [...] Surveillance (repeat Rx) 09/27/2011 LIDIA HUFF APRN V25.49 Contraception Surveillance (repeat Rx) 09/27/2011 REFUGIO [...] MD 373.11 Stye (hordeolum Externum) 01/16/2012 [facility]IC[facility] SPECIALIST, LIDIA A 373.11 Stye (hordeolum Externum) 01/16/2012 [facility] MEDICINE SPECIALIST, LIDIA A 373.11 Stye (hordeolum Externum) 01/16/2012 [facility] MEDICINE SPECIALIST, LIDIA A 373.11 Stye (hordeolum Externum) 01/16/2012 [facility] MEDICINE SPECIALIST, LIDIA A 373.11 Stye (hordeolum Externum) 01/16/2012 [facility] MEDICINE SPECIALIST, LIDIA A 373.11 Stye (hordeolum Externum) 01/16/2012 REFUGIO MEDINA, LIDIA A 373.11 Stye (hordeolum Externum) 01/16/2012 AZAEL BECKER, RAYMUNDO 373.11 Stye (hordeolum Externum) 01/16/2012 MIKE LUEVANO DO 373.11 Stye (hordeolum Externum) 01/16/2012 REFUGIOJODIE MEDINA, LIDIA A 373.11 Stye (hordeolum Externum) [...] Pharyngitis Acute 03/07/2012 462 Pharyngitis Acute 03/07/2012 SHADIA BECKER, GARY 462 Pharyngitis Acute 03/07/2012 LIDIA HUFF APRN A 462 Pharyngitis Acute 03/07/2012 REFUGIO TON, LIDIA A 462 Pharyngitis Acute 03/07/2012 [facility] MEDICINE SPECIALIST, LIDIA A 462 Pharyngitis Acute 03/07/2012 REFUGIO TON, LIDIA A 462 Pharyngitis Acute 03/07/2012 REFUGIO TON, LIDIA A 462 Pharyngitis Acute 03/07/2012 [facility] MEDICINE SPECIALIST, LIDIA A 462 Pharyngitis Acute 03/07/2012 RAYMUNDO ADDISON MD 462 Pharyngitis Acute 03/07/2012 LUEVANO MIKE GARSIA 462 Pharyngitis Acute 03/07/2012 REFUGIO TON, LIDIA A 462 Pharyngitis Acute 03/07/2012 LUEVANO MIKE GARSIA K 462 Pharyngitis Acute 03/07/2012 LUEVANO SHAWN GARSIAA K 462 Pharyngitis Acute 03/07/2012 REFUGIO MEDINA, [...] V25.09 Contraceptive Counseling - General 06/14/2012 [facility]ICINE SPECIALIST, LIDIA A V25.09 Contraceptive Counseling - General 06/14/2012 [facility] MEDICINE SPECIALIST, LIDIA A V25.09 Contraceptive Counseling - General 06/14/2012 [facility] MEDICINE SPECIALIST, LIDIA A V25.09 Contraceptive Counseling - General 06/14/2012 LIDIA HUFF APRN A V25.09 Contraceptive Counseling - General 06/14/2012 RAYMUNDO ADDISON MD V25.09 Contraceptive Counseling - General 06/14/2012 MIKE LUEVANO DO V25.09 Contraceptive Counseling - General 06/14/2012 LIDIA HUFF APRN A V25.09 Contraceptive Counseling - General 06/14/2012 MIKE LUEVANO DO V25.09 Contraceptive Counseling - General 06/14/2012 MIKE LUEVANO DO V25.09 Contraceptive Counseling - General 06/14/2012 REFUGIOLIDIA FELICIANO APRN A V25.09 Contraceptive Counseling - General 06/17/2012 296.20 MAJOR DEPRESSIVE AFFECTIVE DISORDER SINGLE EPISODE UNSPECIFIED DEGREE 06/17/2012 296.20 MAJOR DEPRESSIVE AFFECTIVE DISORDER SINGLE EPISODE UNSPECIFIED DEGREE 06/17/2012 296.20 MAJOR DEPRESSIVE AFFECTIVE DISORDER SINGLE EPISODE UNSPECIFIED DEGREE 06/17/2012 GARY RENO MD 296.20 MAJOR DEPRESSIVE AFFECTIVE DISORDER SINGLE EPISODE UNSPECIFIED DEGREE 06/17/2012 296.20 MAJOR DEPRESSIVE AFFECTIVE DISORDER SINGLE EPISODE UNSPECIFIED DEGREE 06/17/2012 MIKE LUEVNAO DO 296.20 MAJOR DEPRESSIVE AFFECTIVE DISORDER SINGLE [...] DISORDER SINGLE EPISODE UNSPECIFIED DEGREE 06/17/2012 REFUGIO ADAM, LIDIA A 296.20 MAJOR DEPRESSIVE AFFECTIVE DISORDER SINGLE EPISODE UNSPECIFIED DEGREE 06/17/2012 MIKE LUEVANO DO K 296.20 MAJOR DEPRESSIVE AFFECTIVE DISORDER SINGLE EPISODE UNSPECIFIED DEGREE 06/17/2012 MIKE LUEVANO DO 296.20 MAJOR DEPRESSIVE AFFECTIVE DISORDER SINGLE EPISODE UNSPECIFIED DEGREE 06/17/2012 [facility] MEDICINE SPECIALIST, LIDIA A 296.20 MAJOR DEPRESSIVE AFFECTIVE DISORDER [...] MD 787.01 Nausea With Vomiting 06/25/2012 [facility]IC[facility] SPECIALIST, LIDIA A 008.8 Gastroenteritis, Viral 06/25/2012 [facility] MEDICINE SPECIALIST, LIDIA A 787.01 Nausea With Vomiting 06/25/2012 [facility] MEDICINE SPECIALIST, LIDIA A 008.8 Gastroenteritis, Viral 06/25/2012 [facility] MEDICINE SPECIALIST, LIDIA A 787.01 Nausea With Vomiting 06/25/2012 [facility] MEDICINE SPECIALIST, LIDIA A 008.8 Gastroenteritis, Viral 06/25/2012 [facility] MEDICINE SPECIALIST, LIDIA A 787.01 Nausea With Vomiting 06/25/2012 REFUGIO PEDIATRIC SPORTS MEDICINE SPECIALIST, LIDIA A 008.8 Gastroenteritis, Viral 06/25/2012 REFUGIO PEDIATRIC SPORTS MEDICINE SPECIALIST, LIDIA A 787.01 Nausea With Vomiting 06/25/2012 REFUGIO PEDIATRIC SPORTS MEDICINE SPECIALIST, LIDIA A 008.8 Gastroenteritis, Viral 06/25/2012 REFUGIO PEDIATRIC SPORTS MEDICINE SPECIALIST, LIDIA A 787.01 Nausea With Vomiting 06/25/2012 REFUGIO PEDIATRIC SPORTS MEDICINE SPECIALIST, LIDIA A 008.8 Gastroenteritis, Viral 06/25/2012 REFUGIO PEDIATRIC SPORTS MEDICINE SPECIALIST, LIDIA A 787.01 Nausea With Vomiting 06/25/2012 AZAEL BECKER, RAYMUNDO 008.8 Gastroenteritis, Viral 06/25/2012 AZAEL BECKER, RAYMUNDO 787.01 Nausea With Vomiting 06/25/2012 LUEVANO DO MIKE K 008.8 Gastroenteritis, Viral 06/25/2012 LUEVANO DO MIKE K 787.01 Nausea With Vomiting 06/25/2012 REFUGIO PEDIATRIC SPORTS MEDICINE SPECIALIST, LIDIA A 008.8 Gastroenteritis, Viral 06/25/2012 REFUGIO PEDIATRIC SPORTS MEDICINE SPECIALIST, LIDIA A 787.01 Nausea With Vomiting 06/25/2012 SHAWN LUEVANO DOA K 008.8 Gastroenteritis, Viral 06/25/2012 LUEVANO DO MIKE K 787.01 Nausea With Vomiting 06/25/2012 LUEVANO DO, MIKE K 008.8 Gastroenteritis, Viral 06/25/2012 LUEVANO DO, MIKE K 787.01 Nausea With Vomiting 06/25/2012 REFUGIO PEDIATRIC SPORTS MEDICINE SPECIALIST, LIDIA A 008.8 Gastroenteritis, Viral 06/25/2012 REFUGIO PEDIATRIC SPORTS MEDICINE SPECIALIST, LIDIA A 787.01 Nausea With Vomiting 07/02/2012 [...] MD V25.9 Gynecologic Services Contraceptive Management 07/02/2012 SHADIA BECKER, GARY V74.5 STD SCREEN 07/02/2012 REFUGIO TOAdy LIDIA A V25.9 Gynecologic Services Contraceptive Management 07/02/2012 REFUGIO PEDIATRIC SPORTS MEDICINE SPECIALIST, LIDIA A V74.5 STD SCREEN 07/02/2012 REFUGIO PEDIATRIC SPORTS MEDICINE SPECIALIST LIDIA A V25.9 Gynecologic Services Contraceptive Management 07/02/2012 REFUGIO PEDIATRIC SPORTS MEDICINE SPECIALIST, LIDIA A V74.5 STD SCREEN 07/02/2012 REFUGIO PEDIATRIC SPORTS MEDICINE SPECIALIST, LIDIA A V25.9 Gynecologic Services Contraceptive Management 07/02/2012 REFUGIO PEDIATRIC SPORTS MEDICINE SPECIALIST, LIDIA A V74.5 STD SCREEN 07/02/2012 REFUGIO PEDIATRIC SPORTS MEDICINE SPECIALIST, LIDIA A V25.9 Gynecologic Services Contraceptive Management 07/02/2012 REFUGIOAdy MEDINA LIDIA A V74.5 STD SCREEN 07/02/2012 REFUGIO PEDIATRIC SPORTS MEDICINE SPECIALIST, LIDIA A V25.9 Gynecologic Services Contraceptive Management 07/02/2012 REFUGIO TON, LIDIA A V74.5 STD SCREEN 07/02/2012 REFUGIO PEDIATRIC SPORTS MEDICINE SPECIALIST, LIDIA A V25.9 Gynecologic Services Contraceptive Management 07/02/2012 REFUGIO PEDIATRIC SPORTS MEDICINE SPECIALIST, LIDIA A V74.5 STD SCREEN 07/02/2012 AZAEL BECKER, RAYMUNDO V25.9 Gynecologic Services Contraceptive Management 07/02/2012 AZAEL BECKER, RAYMUNDO V74.5 STD SCREEN 07/02/2012 SHAWN LUEVANO DOA K V25.9 Gynecologic Services Contraceptive Management 07/02/2012 CHLOÉ GARSIA MIKE K V74.5 STD SCREEN 07/02/2012 REFUGIO TON, LIDIA A V25.9 Gynecologic Services Contraceptive Management 07/02/2012 REFUGIO APRN, LIDIA A V74.5 STD SCREEN 07/02/2012 CHLOÉ GARSIA MIKE K V25.9 Gynecologic Services Contraceptive Management 07/02/2012 CHLOÉ GARSIA MIKE K V74.5 STD SCREEN 07/02/2012 CHLOÉ GARSIA MIKE K V25.9 Gynecologic Services Contraceptive Management 07/02/2012 CHLOÉ GARSIA MIKE K V74.5 STD SCREEN 07/02/2012 LIDIA HUFF APRN A V25.9 Gynecologic Services Contraceptive Management 07/02/2012 LIDIA HUFF APRN A V74.5 STD SCREEN 07/03/2012 GARY RENO MD 787.03 VOMITING ALONE 07/03/2012 GARY RENO MD 789.00 ABDOMINAL PAIN UNSPECIFIED SITE 07/03/2012 787.03 VOMITING ALONE 07/03/2012 789.00 ABDOMINAL PAIN UNSPECIFIED SITE 07/03/2012 LUEVANO DOMIKE K 787.03 VOMITING ALONE 07/03/2012 LUEVANO DO, MIKE K 789.00 ABDOMINAL PAIN UNSPECIFIED SITE 07/03/2012 787.03 VOMITING ALONE 07/03/2012 789.00 ABDOMINAL PAIN UNSPECIFIED SITE 07/03/2012 787.03 vomiting 07/03/2012 789.00 ABDOMINAL PAIN UNSPECIFIED SITE 07/03/2012 787.03 vomiting 07/03/2012 789.00 ABDOMINAL PAIN UNSPECIFIED SITE 07/03/2012 GARY RENO MD 787.03 vomiting 07/03/2012 GARY RENO MD 789.00 ABDOMINAL PAIN UNSPECIFIED SITE 07/03/2012 [facility] MEDICINE SPECIALIST, LIDIA A 787.03 vomiting 07/03/2012 RE[facility] P[facility] MEDICINE SPECIALIST, LIDIA A 789.00 ABDOMINAL PAIN UNSPECIFIED SITE 07/03/2012 RE[facility] MEDICINE SPECIALIST, LIDIA A 787.03 vomiting 07/03/2012 RE[facility]UG[facility] P[facility] MEDICINE SPECIALIST, LIDIA A 789.00 ABDOMINAL PAIN UNSPECIFIED SITE 07/03/2012 RE[facility]UGIO P[facility] MEDICINE SPECIALIST, LIDIA A 787.03 VOMITING 07/03/2012 RE[facility]UGIO PEDI[facility] MEDICINE SPECIALIST, LIDIA A 789.00 ABDOMINAL PAIN UNSPECIFIED SITE 07/03/2012 RE[facility]UGIO P[facility] MEDICINE SPECIALIST, LIDIA A 787.03 VOMITING 07/03/2012 RE[facility]UGIO PEDI[facility]TS MEDICINE SPECIALIST, LIDIA A 789.00 ABDOMINAL PAIN UNSPECIFIED SITE 07/03/2012 RE[facility]UGIO P[facility] MEDICINE SPECIALIST, LIDIA A 787.03 VOMITING 07/03/2012 RE[facility]UGIO PEDI[facility]TS MEDICINE SPECIALIST, LIDIA A 789.00 ABDOMINAL PAIN UNSPECIFIED SITE 07/03/2012 RE[facility]UGIO PEDI[facility] MEDICINE SPECIALIST, LIDIA A 787.03 VOMITING 07/03/2012 RE[facility]UGIO PEDI[facility] MEDICINE SPECIALIST, LIDIA A 789.00 ABDOMINAL PAIN UNSPECIFIED SITE 07/03/2012 AZAEL BECKER, RAYMUNDO 787.03 VOMITING 07/03/2012 AZAEL BECKER, RAYMUNDO 789.00 ABDOMINAL PAIN UNSPECIFIED SITE 07/03/2012 LUEVANO DO,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
--- NOTE | 2018-11-01 10:12 | ED Upper Extremity ---
General Chief Complaint: Upper Extremity Stated Complaint: NECK / SHOULDER PAIN Nursing Triage Note: PT AMBULATES TO ROOM 5 PT CO OF WAKING UP THIS AM AND HAVING RT NECK AND SHOULDER PAIN RATES 9/10 ON SCALE Nursing Sepsis Screen: No Definite Risk History of Present Illness Date Seen by Provider: November 01, 2018 Time Seen by Provider: 10:07 Initial Comments The patient relates that there has been no specific injury. 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 The pain is worst in the right side of her neck and in the right trapezius area. There is no numbness or tingling. It is painful to turn her neck. Pain/Injury Location: right shoulder Method of Injury: unknown Allergies and Home Medications Allergies Coded Allergies: No Known Drug Allergies (Unverified , 08/22/18) Home Medications No Active Prescriptions or Reported Meds Patient Home Medication List Home Medication List Reviewed: Yes Review of Systems Constitutional: see HPI EENTM: no symptoms reported Respiratory: no symptoms reported Musculoskeletal: muscle pain Past Ctnbugi-Udoeai-Htkxzz Hx Patient Social History Alcohol Use: Regular Use Number of Drinks Today: 0 Alcohol Beverage of Choice: Beer, Whiskey Recreational Drug Use: No Drug of Choice: COCAINE, METH, THC, ECSTASY. DENIES IV USE Smoking Status: Current Everyday Smoker Type Used: Cigarettes 2nd Hand Smoke Exposure: Yes Recent Foreign Travel: No Contact w/Someone Who Travel: No Recent Infectious Disease Expo: No Recent Hopitalizations: No Physical Abuse: No Sexual Abuse: No Immunizations Up To Date Tetanus Booster (TDap): Unknown PED Vaccines UTD: Yes Date of Influenza Vaccine: Mar 30, 2013 Seasonal Allergies Seasonal Allergies: No Past Medical History Surgeries: Yes (EGD) Adenoidectomy, Tonsillectomy Respiratory: No Cardiac: No Neurological: No Reproductive Disorders: No Female Reproductive Disorders: Menstrual Problems, Ovarian Cyst Sexually Transmitted Disease: Yes (Trichomonas and Chlamydia) HIV/AIDS: No Genitourinary: No Gastrointestinal: Yes (GASTRITIS) Musculoskeletal: No Endocrine: No HEENT: No Cancer: No Psychosocial: Yes Anxiety, Bipolar, Depression Integumentary: No Blood Disorders: No Adverse Reaction/Blood Tranf: No Family Medical History No Pertinent Family Hx Physical Exam Vital Signs Vital Signs - First Documented 11/01/18 09:40 Temp 98.1 Pulse 98 Resp 16 B/P (MAP) 129/86 (100) Pulse Ox 98 Capillary Refill : Less Than 3 Seconds Height, Weight, BMI Height: 5'9.00" Weight: 160lbs. oz. 72.975020xc; 25.06 BMI Method:Stated General Appearance: mild distress, other (worse with range of motion) Neck: other (pain to passive range of motion particularly with leftward flexion ) Cardiovascular: normal peripheral pulses Respiratory: chest non-tender Gastrointestinal: normal bowel sounds, non tender, soft, no organomegaly, no pulsatile mass, abnormal bowel sounds Shoulder: limited ROM (pain to palpation of trapezius) Elbow/Forearm: normal inspection Wrist: Yes normal inspection Hand: normal inspection Lymphatic: no adenopathy Pain to passive range of motion of neck particularly to leftward flexion. Pain to palpation of the right paracervical muscles. Pain to palpation of the trapezius. Pain to patient's shoulder shrug. 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 Progress/Results/Core Measures Results/Orders Vital Signs/I&O 11/01/18 09:40 Temp 98.1 Pulse 98 Resp 16 B/P (MAP) 129/86 (100) Pulse Ox 98 Blood Pressure Mean: 100 Departure Impression Primary Impression: overuse spasm right para cervical and trapezius muscles Disposition: 01 HOME, SELF-CARE Condition: Stable/Unchanged Departure-Patient Inst. Referrals: [facility] [place] Primary Care Physician Add. Discharge Instructions: All discharge instructions reviewed with patient and/or family. Voiced understanding. Use ibuprofen 600 mg 3 times daily. Use Flexeril twice daily. This may cause drowsiness. Use microwave guerrier bags which are obtainable at [facility] every 4 hours or so to the neck and shoulder muscles. Scripts No Active Prescriptions or Reported Meds ALONSO JOSE MD November 01, 2018 10:11
[2018-11-01] MEDS ORDERED: Flexeril (10:18)
[2018-11-01 10:24] VITALS: BP 129/86
== END 2018-11-01 10:27 | disposition home or self-care (01) ==
LOC: EDUNIT# 09:36 → ER 09:37
DX: M62.838 Other muscle spasm (principal); F41.9 Anxiety disorder, unspecified; F31.9 Bipolar disorder, unspecified; F17.210 Nicotine dependence, cigarettes, uncomplicated; Z90.89 Acquired absence of other organs; Z87.448 Personal history of other diseases of urinary system; Z87.19 Personal history of other diseases of the digestive system; X50.0XXA Overexertion from strenuous movement or load, initial encounter; Y92.59 Other trade areas as the place of occurrence of the external cause; Y99.0 Civilian activity done for income or pay
CPT/HCPCS: 99282

== ENCOUNTER 2019-06-21 03:53 | Emergency (ER) | payer SELFPAY ==
[~2019-06-21] VITALS: Ht 175 cm; Wt 70.0 kg
[~2019-06-21 03:53] MED LIST changes: +Flexeril
[2019-06-21] MEDS ORDERED: fentaNYL INJECTION 100 MCG/2 ML AMP IVP ONE ×2 (04:15→05:45)
[2019-06-21] MEDS ORDERED: TETANUS,DIPTH,PERTUSS P/F (BOOSTRIX) 0.5 ML VIAL IM ONE (04:15)
[2019-06-21] MEDS ORDERED: LORazepam INJ 2 MG/ML (ATIVAN) VIAL IVP ONE (04:15)
[2019-06-21 04:47] LABS: HEMOGLOBIN 14.7 G/DL (11.5-16.0); MEAN PLATELET VOLUME 9.7 FL (7.4-10.4); RED CELL DISTRIBUTION WIDTH 12.1 % (10.0-14.5); WHITE BLOOD COUNT 9.7 10^3/uL (4.3-11.0)
[2019-06-21] MEDS ORDERED: LIDOCAINE/EPI 2% 1:100,00 (XYLOCAINE) 20 ML VIAL ONE (04:50)
[2019-06-21] MEDS ORDERED: LIDOCAINE/EPI 2% 1:100,00 (XYLOCAINE) 20 ML VIAL INJ ONE (05:00)
[2019-06-21 05:07] LABS: ALANINE AMINOTRANSFERASE 16 U/L (0-55); ALKALINE PHOSPHATASE 46 U/L (40-136); BILIRUBIN,DIRECT 0.2 MG/DL (0.0-0.3); BILIRUBIN,INDIRECT 0.2 MG/DL; BILIRUBIN,TOTAL 0.4 MG/DL (0.1-1.0); BUN/CREATININE RATIO 8; CARBON DIOXIDE 18 MMOL/L (21-32); CHLORIDE 110 MMOL/L (98-107); CREATININE SERUM 0.75 MG/DL (0.60-1.30); GFR ESTIMATED > 60; GLUCOSE 91 MG/DL (70-105); POTASSIUM 3.7 MMOL/L (3.6-5.0); SODIUM 143 MMOL/L (135-145); TOTAL PROTEIN 7.9 GM/DL (6.4-8.2)
[2019-06-21] MEDS ORDERED: ceFAZolin 2 GM/50 ML NS 50 ML IV ONE (05:15)
[2019-06-21] MEDS ORDERED: ceFAZolin INJECTION 2,000 MG ONE (05:20)
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
[2019-06-21 06:22] VITALS: BP 121/97
== END 2019-06-21 06:22 | disposition short-term general hospital (02) ==
LOC: EDUNIT# 03:53 → ER 03:55
DX: S01.111A Laceration without foreign body of right eyelid and periocular area, initial encounter (principal); S01.21XA Laceration without foreign body of nose, initial encounter; S01.112A Laceration without foreign body of left eyelid and periocular area, initial encounter; S05.91XA Unspecified injury of right eye and orbit, initial encounter; F41.9 Anxiety disorder, unspecified; F31.9 Bipolar disorder, unspecified; R40.2142 Coma scale, eyes open, spontaneous, at arrival to emergency department; R40.2252 Coma scale, best verbal response, oriented, at arrival to emergency department; R40.2362 Coma scale, best motor response, obeys commands, at arrival to emergency department; Z23 Encounter for immunization; Z77.22 Contact with and (suspected) exposure to environmental tobacco smoke (acute) (chronic); Z90.89 Acquired absence of other organs; Y08.89XA Assault by other specified means, initial encounter; Y92.481 Parking lot as the place of occurrence of the external cause
CPT/HCPCS: 12013; 36415; 70450; 70486; 71045; 72125; 80048; 80076; 80320; 84703; 85027; 90471; 90715; 93041; 96374; 96375; 96376

== ENCOUNTER 2019-08-17 18:34 | Emergency (ER) | payer SELFPAY ==
[~2019-08-17 18:34] MED LIST changes: +D-ME473S11 PO; -D-ME473S38 PO
== END 2019-08-17 19:11 | disposition left against medical advice (07) ==
LOC: EDUNIT# 18:34 → ER 18:35
DX: R09.89 Other specified symptoms and signs involving the circulatory and respiratory systems (principal); R11.0 Nausea

== ENCOUNTER 2019-08-19 00:15 | Emergency (ER) | payer SELFPAY ==
[~2019-08-19] VITALS: Ht 175 cm; Wt 79.5 kg
[2019-08-19 01:07] LABS: BILIRUBIN,URINE NEGATIVE (NEGATIVE); CLARITY,URINE CLEAR; COLOR,URINE YELLOW; GLUCOSE, URINE (UA) NEGATIVE (NEGATIVE); KETONES,URINE NEGATIVE (NEGATIVE); LEUKOCYTE ESTERASE ,URINE TRACE (NEGATIVE); NITRITE,URINE NEGATIVE (NEGATIVE); PH,URINE 6.5 (5-9); PROTEIN,URINE NEGATIVE (NEGATIVE)
[2019-08-19 01:19] LABS: BACTERIA,URINE FEW /HPF; WBC,URINE 0-2 /HPF
--- NOTE | 2019-08-19 02:02 | ED General ---
General Chief Complaint: Cough/Cold/Flu Symptoms Stated Complaint: COUGH,CHEST HEAVY,VOMITING,POSS FEVER Nursing Triage Note: Pt ambulates to [facility] 6 with c/o cough/flu/vomiting x 2 days. Pt states she's vomited twice today. Pt is afebrile on arrival. States she was seen in ER yesterday but didn't get a flu tested because she had to leave d/t personal reasons. Nursing Sepsis Screen: No Definite Risk Source of Information: Patient Exam Limitations: No Limitations History of Present Illness Date Seen by Provider: Aug 19, 2019 Time Seen by Provider: 00:19 Initial Comments This 24-year-old young lady presents to the emergency room with flulike symptoms including cough and vomiting for 2 days. She vomited twice today but no longer feels nauseated. She is afebrile at present. She has generalized chest discomfort with inspiration. Patient checked into the ER on the for left without being seen. Patient additionally complains of some pelvic discomfort which she states feels similar to bacterial vaginosis she has been treated for in the past. She denies any dysuria or vaginal discharge. Patient states the chest discomfort and cough has actually been present for about 2 weeks. Allergies and Home Medications Allergies Coded Allergies: No Known Drug Allergies (Unverified , 08/22/18) Home Medications Azithromycin 250 Mg Tablet, 250 MG PO DAILY Prescribed by: RAMANDEEP LAUGHLIN on 08/19/19 020 Metronidazole 500 Mg Tablet, 500 MG PO BID Prescribed by: RAMANDEEP LAUGHLIN on 08/19/19 020 [Flexeril] , 10 MG twice a day Prescribed by: ALONSO JOSE on 11/01/18 1018 Patient Home Medication List Home Medication List Reviewed: Yes Review of Systems Review of Systems Constitutional: see HPI EENTM: see HPI Respiratory: see HPI Cardiovascular: no symptoms reported Gastrointestinal: see HPI Genitourinary: see HPI : No Musculoskeletal: no symptoms reported Skin: no symptoms reported Psychiatric/Neurological: No Symptoms Reported Hematologic/Lymphatic: No Symptoms Reported Immunological/Allergic: no symptoms reported Past Xqukqfv-Zjjing-Yozzyu Hx Patient Social History Alcohol Beverage of Choice: Beer, Whiskey Drug of Choice: COCAINE, METH, THC, ECSTASY. DENIES IV USE Type Used: Cigarettes 2nd Hand Smoke Exposure: Yes Recent Foreign Travel: No Contact w/Someone Who Travel: No Recent Infectious Disease Expo: No Recent Hopitalizations: No Physical Abuse: No Sexual Abuse: No Mistreated: No Fear: No Immunizations Up To Date Tetanus Booster (TDap): Unknown PED Vaccines UTD: Yes Date of Influenza Vaccine: Mar 30, 2013 Seasonal Allergies Seasonal Allergies: No Past Medical History Surgeries: Yes (EGD) Adenoidectomy, Tonsillectomy Respiratory: No Cardiac: No Neurological: No Reproductive Disorders: No Female Reproductive Disorders: Menstrual Problems, Ovarian Cyst Sexually Transmitted Disease: Yes (Trichomonas and Chlamydia, history of bacterial vaginosis) HIV/AIDS: No Genitourinary: No Gastrointestinal: Yes (GASTRITIS) Musculoskeletal: No Endocrine: No HEENT: No Cancer: No Psychosocial: Yes Anxiety, Bipolar, Depression Integumentary: No Blood Disorders: No Adverse Reaction/Blood Tranf: No Family Medical History No Pertinent Family Hx Physical Exam Vital Signs Vital Signs - First Documented 08/19/19 00:46 Temp 36.5 Pulse 74 Resp 20 B/P (MAP) 123/61 (81) Pulse Ox 98 O2 Delivery Room Air Capillary Refill : Less Than 3 Seconds Height, Weight, BMI Height: 5'9.00" Weight: 160lbs. oz. 72.437215ok; 25.00 BMI Method:Stated General Appearance: No Apparent Distress, WD/WN HEENT: PERRL/EOMI, TMs Normal, Normal ENT Inspection, Pharynx Normal Neck: Normal Inspection Respiratory: Lungs Clear, Normal Breath Sounds, No Accessory Muscle Use, No Respiratory Distress Cardiovascular: Regular Rate, Rhythm, No Edema, No Murmur Gastrointestinal: Normal Bowel Sounds, Soft, Tenderness (Slight in the suprapubic region) Extremity: Normal Inspection, No Pedal Edema Neurologic/Psychiatric: Alert, Oriented x3, No Motor/Sensory Deficits, Normal Mood/Affect, mophead sewer II-XII Norm as Tested Skin: Normal Color, Warm/Dry Procedures/Interventions Suture Size: 5-0 Progress/Results/Core Measures Suspected Sepsis Recent Fever Within 48 Hours: No Infection Criteria Present: None New/Unexplained Altered Menta: No Sepsis Screen: No Definite Risk SIRS Temperature: Pulse: 74 Respiratory Rate: 20 Blood Pressure 123 /61 Mean: 81 Results/Orders Lab Results Micro Results My Orders Vital Signs/I&O Capillary Refill : Less Than 3 Seconds Blood Pressure Mean: 81 Progress Note : Progress Note Influenza screen was negative. Chest x-ray showed no clear evidence of pneumonia. There was no tachycardia or hypoxia. However, because of patient's persistent symptoms for 2 weeks and no evidence of bronchitis on exam, azithromycin was offered. Patient was offered a pelvic exam to screen for STI's. She declines that requested empiric treatment for bacterial vaginosis. She'll follow-up with her primary care or bread baker if symptoms do not resolve after treatment with metronidazole. Patient was encouraged to quit smoking. Diagnostic Imaging Diagonstic Imaging: Xray Plain Films/CT/US/NM/MRI: chest Comments Chest x-ray viewed by me. Report not yet available. No definite acute infiltrate or consolidation. Departure Impression Primary Impression: Pleuritic chest pain Additional Impression: Pelvic pain Disposition: HOME, SELF-CARE Condition: Improved Departure-Patient Inst. Decision time for Depature: 02:01 Referrals: [facility] (PCP/Family) Primary Care Physician Patient Instructions: Acute Pelvic Pain, Pleuritic Chest Pain Add. Discharge Instructions: Continue working toward quitting smoking as rapidly as possible. Do not replace cigarettes smoking with other inhaled nicotine products. Complete your antibiotics as prescribed. Start the azithromycin on morning. Start the Flagyl (metronidazole) this afternoon. Return to care or contact your doctor if you have worsening symptoms. In addition to the azithromycin, you may treat your chest discomfort with ibuprofen up to 600 mg every 6 hours. Continue using your inhaler as directed for wheezing or shortness of breath. Return to the emergency room if you have worsening symptoms despite these measures. All discharge instructions reviewed with patient and/or family. Voiced understanding. Scripts Metronidazole (Flagyl) 500 Mg Tablet 500 MG PO BID, #14 TAB Prov: RAMANDEEP CRYSTAL MD 08/19/19 Azithromycin (Azithromycin) 250 Mg Tablet 250 MG PO DAILY, #4 TAB Prov: RAMANDEEP CRYSTAL MD 08/19/19 RAMANDEEP CRYSTAL MD Aug 19, 2019 02:02
[2019-08-19] MEDS ORDERED: AZIT250T12 PO (02:07)
[2019-08-19] MEDS ORDERED: METR500T PO (02:07)
[2019-08-19 02:12] VITALS: BP 123/61
[2019-08-19] MEDS ORDERED: AZITHROMYCIN 250 MG TAB (ZITHROMAX) PO ONE (02:15)
[2019-08-19] MEDS ORDERED: metroNIDAZOLE 500 MG (FLAGYL) TAB PO ONE (02:15)
--- NOTE | 2019-08-19 07:17 | Diagnostic Imaging Report ---
PA and lateral chest at 122 hours. INDICATION: Cough, congestion. FINDINGS: The heart size is within normal limits and stable when compared to 06/21/2019. The lungs are clear. There is no evidence for failure, pneumonia or for pleural effusion. The mediastinum is not widened. The osseous structures are intact. IMPRESSION: There is no evidence for active disease. Dictated by: Dictated on workstation # [id number]
== END 2019-08-19 02:13 | disposition home or self-care (01) ==
LOC: EDUNIT# 00:15 → ER 00:18
DX: R07.81 Pleurodynia (principal); R10.2 Pelvic and perineal pain; Z77.22 Contact with and (suspected) exposure to environmental tobacco smoke (acute) (chronic)
CPT/HCPCS: 71046; 81000; 84703; 87804

== ENCOUNTER 2019-10-27 09:19 | Emergency (ER) | payer SELFPAY ==
[~2019-10-27] VITALS: Ht 175 cm; Wt 81.8 kg
[~2019-10-27 09:19] MED LIST changes: -VALA1000 PO; +VALA10007 PO
--- OUTSIDE RECORDS SUMMARY | 2019-10-27 09:27 | XMS REPORT ---
Author Author Becky Marie Doctor Organization [facility] Address Unknown Phone Unavailable Care Team Providers Care Pharmaceutical Development Technician Name Role Phone Migration, Doctor Unavailable Unavailable PROBLEMS Type Condition ICD9-CM Code [id number] Code Onset Dates Condition S tatus SNOMED Code Problem IBS (irritable bowel syndrome) K58.9 Active 29889991 Problem PCOS (polycystic ovarian syndrome) E28.2 Active 94766418 Problem Tobacco abuse counseling Z71.6 Activ e 333250456 Problem Tobacco abuse Z72.0 Active 197330 05 Problem Generalized anxiety disorder F41.1 A ctive 27075589 Problem Chronic posttraumatic stress disorder F43.12 Active 188582023 Problem History of drug dependence/abuse F19.21 Active 911254312 Problem Bipolar disorder with moderate depression F31.32 Active 169684004 Problem Unspecified mood [affective] disorder F39 Active 059239134 Problem Herpes labialis B00.1 Active 1475 003 Problem Irregular menses N92.6 Active 801 05462 Problem PTSD (post-traumatic stress disorder) F43.10 Active 82437864 Problem Bipolar II disorder F31.81 Active 19873899 Problem Other chronic pain G89.29 Active 8 4372052 Problem Abnormal uterine bleeding N93.9 Acti ve [id number] ALLERGIES No Information ENCOUNTERS Encounter Location Date Diagnosis [facility] [address] [facility] [id number] [address] [place] [address] Sep, Bronchitis J40 [facility] [address] [facility] [id number] [address] [place] [address] Sep, Yeast vaginitis B37.3 ; Conc zi about STD in female without diagnosis Z71.1 ; Herpes labialis B00.1 ; Chronic bronchitis, unspecified chronic bronchitis type J42 ; Other specified bacterial agents as the cause of diseases classified elsewhere B96.89 and Acute vaginitis N76.0 [facility] [address] [facility] [id number] [address] [place] [address] Jul, [facility] [address] [facility] [id number] [address] [place] [address] Jul, [facility] [address] [facility] [id number] [address] [place] [address] Jul, Concern about STD in female without diagnosis Z71.1 ; Acute vaginitis N76.0 ; Yeast vaginitis B37.3 and Other specified bacterial agents as the cause of diseases classified elsewhere B96.89 [facility] [address] [facility] [id number] [address] [place] [address] Jul, Acute nasopharyngitis J00 ; Other specified bacterial agents as the cause of diseases classified elsewhere B96.89 ; Acute vaginitis N76.0 and Blunt trauma of right eye, initial encounter S05.8X1A [place] [address] [facility] [id number] [address] [place] [address] Mar, Bronchitis J40 [facility] [address] [place] [id number] [place] [phone] Mar, Other specified bacterial agents as the cause of diseases classified elsewhere B96.89 and Acute vaginitis N76.[address] [place] [address] Mar, [address] [place] [address] Mar, Acute cystitis without hemat uria N30.[address] [place] [address] Mar, Dysuria R30.0 and Acute cyst itis without hematuria N30.00 [facility] [address] [facility] [id number] [address] [place] [id number] Jan, Caries K02.9 and Dental exam ination Z01.20 [place] [address] [facility] [id number] [address] [place] [address] Jan, Bipolar disorder with modera te depression F31.32 [place] [address] [place] [id number] [address] [place] [address] Jan, PTSD (post-traumatic stress disorder) F43.10 [place] [address] [place] [id number] [address] [place] [address] Jan, PTSD (post-traumatic stress disorder) F43.10 and Bipolar II disorder F31.81 [place] [address] [place] [id number] [address] [place] [address] Dec, Acute non-recurrent frontal sinusitis J01.10 [place] [address] [place] [id number] [address] [place] [address] Nov, Bipolar II disorder F31.81 ; PTSD (post-traumatic stress disorder) F43.10 and History of drug dependence/abuse F19.21 [place] [address] [place] [id number] [address] [place] [address] Nov, Visit for TB skin test Z11.1 [place] [address] [place] [id number] [address] [place] [address] Nov, [place] [address] [address] Nov, Burning with urination R30.0 ; Vaginal discharge N89.8 ; Acute vaginitis N76.0 ; Other specified bacterial agents as the cause of diseases classified elsewhere B96.89 and Labial lesion N90.89 [place] [address] [place] [id number] [address] [place] [address] Sep, Abnormal uterine bleeding N9 3.9 [place] [address] [place] [id number] [address] [place] [address] Aug, High risk heterosexual behav ior Z72.51 ; Acute cystitis with hematuria N30.01 and Irregular menses N92.6 [place] [address] [place] [id number] [address] [place] [address] Aug, Abnormal uterine bleeding N9 3.9 and Tobacco abuse Z72.0 [facility] [address] [address] 13 Aug, 2018 Abnormal uterine bleeding N9 3.9 and Tobacco abuse Z72.0 [facility] [address] [address] 11 Aug, 2018 Viral gastroenteritis A08.4 [place] [address] [address] 06 Aug, 2018 Frequency of urination R35.0 ; Vaginal discharge N89.8 and Screening for cervical cancer Z12.4 [place] [address] [address] 27 May, 2018 Bronchitis J40 [place] [address] [address] May, [place] [address] [address] May, [facility] [address] [address] May, [place] [address] [address] May, [facility] [address] [address] May, Concussion with loss of cons ciousness, initial encounter S06.0X9A [facility] [address] [address] Mar, Upper respiratory infection, viral J06.9 and Dysuria R30.0 [facility] [address] [id number] Mar, Dental examination Z01.20 [facility] [address] [id number] Mar, Dental examination Z01.20 [facility] [address] [id number] 19 Mar, 2018 Caries K02.9 [facility] [address] [id number] [address] [place] [address] [id number] 13 Mar, 2018 Dental examination Z01.20 [facility] [address] [place] [id number] [address] [place] [address] Dec, [facility] [address] [place] [id number] [place] [address] Dec, [place] [address] [place] [id number] [place] [address] Nov, Irregular menses N92.6 ; Abn ormal uterine bleeding N93.9 ; History of PCOS Z87.42 and History of unprotected sex Z72.51 [place] [address] [place] [id number] [address] [place] [address] October, [place] [address] [address] October, Low back pain M54.5 ; Dysuri a R30.0 ; Other chronic pain G89.29 and Routine gynecological examination Z01.419 [place] [address] [place] [id number] [address] [place] [address] October, Dysuria R30.0 and Vaginal di scharge N89.8 [place] [address] [place] [id number] [address] [place] [address] Sep, Bipolar II disorder F31.81 ; PTSD (post-traumatic stress disorder) F43.10 ; Generalized anxiety disorder F41.1 and History of drug dependence/abuse F19.21 [place] [address] [place] [id number] [address] [place] [address] Sep, Unspecified mood [affective] disorder F39 and Post-traumatic stress disorder, unspecified F43.10 [place] [address] [place] [id number] [address] [place] [address] Aug, PCOS (polycystic ovarian syn drome) E28.2 ; Recurrent major depressive disorder, in full remission F33.42 ; IBS (irritable bowel syndrome) K58.9 and Tobacco abuse Z72.0 [place] [address] [place] [id number] [place] [address] Aug, Generalized anxiety disorder F41.1 and Depressive disorder, not elsewhere classified F32.9 [place] [address] [place] [id number] [address] [place] [address] Aug, PCOS (polycystic ovarian syn drome) E28.2 ; Recurrent major depressive disorder, in full remission F33.42 ; IBS (irritable bowel syndrome) K58.9 ; Tobacco abuse Z72.0 ; Tobacco abuse counseling Z71.6 ; Dysuria R30.0 ; Irregular menses N92.6 ; Vaginal candidiasis B37.3 and Acute cystitis without hematuria N30.00 [place] [address] [place] [id number] [place] [address] May, [place] [address] [address] 18 Mar, 2017 Vaginal discharge N89.8 and Recurrent candidiasis of vagina B37.3 [place] [address] [place] [id number] [place] [address] 13 Mar, 2017 Nausea and vomiting in adult R11.2 ; Sore throat J02.9 and Diarrhea, unspecified type R19.7 [place] [address] [place] [id number] [place] [address] Mar, [place] [address] [place] [id number] [place] [address] 14 Jan, 2017 Vaginal discharge N89.8 ; Dy suria R30.0 ; High risk sexual behavior Z72.51 ; Major depressive disorder, single episode F32.9 and Vaginal candidiasis B37.3 [place] [address] [place] [id number] [address] [place] [address] Jan, Anxiety F41.9 [place] [address] [place] [id number] [place] [address] Dec, [facility] [address] [place] [id number] [address] [place] [address] Nov, Generalized anxiety disorder F41.1 ; Depressive disorder, not elsewhere classified F32.9 ; History of drug dependence/abuse F19.21 and 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 [place] [address] [place] [id number] [place] [address] Nov, Vaginal discharge N89.8 ; Hi gh risk sexual behavior Z72.51 ; Potential exposure to STD Z20.2 and Vaginal candidiasis B37.3 [place] [address] [address] Nov, History of drug dependence/a buse F19.21 and Major depressive disorder, single episode F32.9 [place] [address] [address] Nov, Right medial knee pain M25.5 61 [place] [address] [address] October, Nausea and vomiting, intract ability of vomiting not specified, unspecified vomiting type R11.2 and Acute pyelonephritis N10 [place] [address] [address] Sep, Major depressive disorder, s edelmira episode F32.9 ; Alcohol abuse F10.10 and Tobacco abuse Z72.0 [place] [address] [address] Sep, Major depressive disorder, s edelmira episode F32.9 ; Alcohol abuse F10.10 and History of drug dependence/abuse F19.21 [place] [address] [address] Sep, Major depressive disorder, s edelmira episode F32.9 [facility] [address] [place] [id number] [address] [place] [address] Aug, Acute cystitis with hematuri a N30.01 and Dysuria R30.0 [facility] [address] [facility] [id number] [address] [place] [address] Aug, Dysuria R30.0 ; Vaginal cand idiasis B37.3 ; Vaginal discharge N89.8 and High risk sexual behavior Z72.51 [facility] [address] [facility] [id number] [address] [place] [address] Jul, [facility] [address] [facility] [id number] [address] [place] [address] Jul, Major depressive disorder, s edelmira episode F32.9 ; History of drug dependence/abuse F19.21 ; Alcohol abuse F10.10 and Tobacco abuse Z72.0 [facility] [address] [facility] [id number] [address] [place] [address] [id number] May, Dental examination Z01.20 an d Dental caries K02.9 [facility] [address] [place] [id number] [address] [place] [address] May, Fatigue, unspecified type R5 3.83 and Cough R05 [facility] [address] [facility] [id number] [address] [place] [address] May, [facility] [address] [place] [id number] [address] [place] [address] Mar, [facility] [address] [facility] [id number] [address] [place] [address] Mar, [facility] [address] [facility] [id number] [address] [place] [address] Mar, [facility] [address] [facility] [id number] [address] [place] [address] Mar, [place] [address] [place] [id number] [address] [place] [address] Mar, Absence of menstruation N91. 2 ; Vagina itching L29.8 ; History of drug dependence/abuse F19.21 ; History of PID Z87.42 and Acute cystitis without hematuria N30.00 [place] [address] [place] [id number] [address] [place] [address] 08 Sep, 2015 Routine health maintenance Z 00.00 ; Late menses N91.0 ; History of drug dependence/abuse F19.21 ; Alcohol abuse F10.10 ; Tobacco abuse Z72.0 ; Tobacco abuse counseling Z71.6 and Back pain M54.9 [facility] [address] [place] [id number] [address] [place] [address] [id number] 18 Aug, 2015 Dental examination Z01.20 an d Dental caries K02.9 [place] [address] [address] 26 Jul, 2015 [place] [address] [address] 14 Jul, 2015 Surveillance of contraceptiv e injection Z30.42 [place] [address] [address] 13 Jul, 2015 Routine screening for STI (s exually transmitted infection) Z11.3 ; Drug use F19.90 ; Counseling on substance use and abuse Z71.89 ; Unprotected sexual intercourse Z72.51 ; Encounter for counseling regarding contraception Z30.9 ; Vaginal discharge N89.8 and Skin lesions L98.9 [place] [address] [place] [id number] [address] [place] [address] 30 May, 2015 [place] [address] [address] May, Yeast infection B37.9 [place] [address] [place] [id number] [address] [place] [address] 19 May, 2015 Excessive and frequent menst ruation with irregular cycle N92.1 ; Other fatigue R53.83 ; General counseling and advice for contraceptive management Z30.09 ; Evaluation for contraceptive injection Z30.013 ; Cough R05 ; Vaginal irritation N89.8 and Dizziness R42 [place] [address] [place] [id number] [address] [place] [address] 14 Sep, 2014 [facility] [address] [id number] [address] [place] [address], [place] [address] Sep, [facility] [address] [id number] [address] [place] [address], [place] [address] Aug, [facility] [address] [id number] [address] [place] [address], [place] [address] Aug, [facility] [address] [id number] [address] [place] [address], [place] [address] Aug, [facility] [address] [id number] [address] [place] [address], [place] [address] Aug, [facility] [address] [id number] [address] [place] [address], [place] [address] Aug, [facility] [address] [id number] [address] [place] [address], [place] [address] Aug, [facility] [address] [id number] [address] [place] [address], [place] [address] Aug, [facility] [address] [id number] [address] [place] [address], [place] [address] Aug, [facility] [address] [id number] [address] [place] [address], [place] [address] Aug, [facility] [address] [id number] [address] [place] [address], [place] [address] Aug, [facility] [address] [id number] [address] [place] [address] Aug, [facility] [address] [id number] [address] [place] [address], [place] [address] Aug, [facility] [address] [id number] [address] [place] [address], [place] [address] Jul, [facility] [address] [id number] [address] [place] [address] Jul, [facility] [address] [id number] [address] [place] [address] May, [facility] [address] [id number] [address] [place] [address], [place] [address] May, [facility] [address] [id number] [address] [place] [address], [place] [address] May, [facility] [address] [id number] [address] [place] [address], [place] [address] May, [facility] [address] [id number] [address] [place] [address], [place] [address] Mar, [facility] [address] [id number] [address] [place] [address], [place] [address] Mar, [facility] [address] [id number] [address] [place] [address], [place] [address] Mar, [facility] [address] [id number] [address] [place] [address], [place] [address] Mar, [facility] [address] [id number] [address] [place] [address], [place] [address] Mar, [facility] [address] [id number] [address] [place] [address], [place] [address] Mar, [facility] [address] [id number] [address] [place] [address], [place] [address] Mar, [facility] [address] [id number] [address] [place] [address], [place] [address] Mar, [facility] [address] [id number] [address] [place] [address], [place] [address] Mar, [facility] [address] [id number] [address] [place] [address], [place] [address] Mar, [facility] [address] [id number] [address] [place] [address], [place] [address] Jan, [facility] [address] [id number] [address] [place] [address], [place] [address] Jan, [facility] [address] [id number] [address] [place] [address], [place] [address] Nov, [facility] [address] [id number] [address] [place] [address], [place] [address] Nov, [facility] [address] [id number] [address] [place] [address], [place] [address] October, [facility] [address] [id number] [address] [place] [address], [place] [address] October, [facility] [address] [id number] [address] [place] [address], [place] [address] October, [facility] [address] [id number] [address] [place] [address], [place] [address] October, [facility] [address] [id number] [address] [place] [address], [place] [address] October, [facility] [address] [id number] [address] [place] [address], [place] [address] October, [facility] [address] [id number] [address] [place] [address], [place] [address] October, [facility] [address] [id number] [address] [place] [address], [place] [address] October, [facility] [address] [id number] [address] [place] [address], [place] [address] Sep, [facility] [address] [id number] [address] [place] [address], [place] [address] Sep, [facility] [address] [id number] [address] [place] [address], [place] [address] Aug, [facility] [address] [id number] [address] [place] [address], [place] [address] Aug, [facility] [address] [id number] [address] [place] [address], [place] [address] Aug, [facility] [address] [id number] [address] [place] [address], [place] [address] Aug, [facility] [address] [id number] [address] [place] [address], [place] [address] May, [facility] [address] [id number] [address] [place] [address], [place] [address] May, [facility] [address] [id number] [address] [place] [address], [place] [address] May, [facility] [address] [id number] [address] [place] [address], [place] [address] May, [facility] [address] [id number] [address] [place] [address], [place] [address] May, [facility] [address] [id number] [address] [place] [address], [place] [address] May, [facility] [address] [id number] [address] [place] [address], [place] [address] May, [facility] [address] [id number] [address] [place] [address], [place] [address] May, [facility] [address] [id number] [address] [place] [address], [place] [address] Mar, [facility] [address] [id number] [address] [place] [address], [place] [address] Mar, [facility] [address] [id number] [address] [place] [address], [place] [address] Mar, [facility] [address] [id number] [address] [place] [address], [place] [address] Jan, [facility] [address] [id number] [address] [place] [address], [place] [address] Jan, [facility] [address] [id number] [address] [place] [address], [place] [address] Dec, [facility] [address] [id number] [address] [place] [address], [place] [address] Dec, [facility] [address] [id number] [address] [place] [address], [place] [address] 12 Dec, 2012 [facility] [address] [id number] [address] [place] [address], [place] [address] 04 Sep, 2012 [facility] [address] [id number] [address] [place] [address], [place] [address] 28 Aug, 2012 [facility] [address] [id number] [address] [place] [address], [place] [address] 21 Aug, 2012 [facility] [address] [id number] [address] [place] [address], [place] [address] 18 Aug, 2012 [facility] [address] [id number] [address] [place] [address], [place] [address] 15 Aug, 2012 [facility] [address] [id number] [address] [place] [address], [place] [address] 14 Aug, 2012 [facility] [address] [id number] [address] [place] [address], [place] [address] 11 Aug, 2012 [facility] [address] [id number] [address] [place] [address], [place] [address] 16 Jul, 2012 [facility] [address] [id number] [address] [place] [address], [place] [address] 15 Jul, 2012 [facility] [address] [id number] [address] [place] [place] [address], [place] [address] 07 Jul, 2012 [facility] [address] [id number] [address] [place] [address], [place] [address] Jul, [facility] [address] [id number] [address] [place] [address], [place] [address] Jul, [facility] [address] [id number] [address] [place] [address], [place] [address] Jul, [facility] [address] [id number] [address] [place] [address], [place] [address] May, [facility] [address] [id number] [address] [place] [address], [place] [address] May, [facility] [address] [id number] [address] [place] [address], [place] [address] May, [facility] [address] [id number] [address] [place] [address], [place] [address] May, [facility] [address] [id number] [address] [place] [address], [place] [address] May, [facility] [address] [id number] [address] [place] [address], [place] [address] May, [facility] [address] [id number] [address] [place] [address], [place] [address] Mar, [facility] [address] [id number] [address] [place] [address], [place] [address] Mar, [facility] [address] [id number] [address] [place] [address], [place] [address] Mar, [facility] [address] [id number] [address] [place] [address] Mar, [facility] [address] [id number] [address] [place] [address], [place] [address] Mar, [facility] [address] [id number] [address] [place] [address] Mar, [facility] [address] [id number] [address] [place] [address] Mar, [facility] [address] [id number] [address] [place] [address] Dec, [facility] [address] [id number] [address] [place] [address], [place] [address] Nov, [facility] [address] [id number] [address] [place] [address] Sep, [facility] [address] [id number] [address] [place] [address] Aug, [facility] [address] [id number] [address] [place] [address] 27 Aug, 2011 [facility] [address] [id number] [address] [place] [address], [place] [address] Aug, [facility] [address] [id number] [address] [place] [address], [place] [address] Aug, [facility] [address] [id number] [address] [place] [address], [place] [address] 16 Aug, 2011 [facility] [address] [id number] [address] [place] [address], [place] [address] Aug, [facility] [address] [id number] [address] [place] [address], [place] [address] Jul, [facility] [address] [id number] [address] [place] [address], [place] [address] Jul, [facility] [address] [id number] [address] [place] [address], [place] [address] Jul, [facility] [address] [id number] [address] [place] [address], [place] [address] May, [facility] [address] [id number] [address] [place] [address], [place] [address] May, [facility] [address] [id number] [address] [place] [address], [place] [address] Mar, [facility] [address] [id number] [address] [place] [address], [place] [address] 24 Mar, 2011 [facility] [address] [id number] [address] [place] [address], [place] [address] Mar, [facility] [address] [id number] [address] [place] [address], [place] [address] Mar, [facility] [address] [id number] [address] [place] [address], [place] [address] Dec, [facility] [address] [id number] [address] [place] [address], [place] [address] 14 May, 2010 [facility] [address] [id number] [address] [place] [address], [place] [address] 06 May, 2010 [facility] [address] [id number] [address] [place] [address], [place] [address] 22 May, 2010 [facility] [address] [id number] [address] [place] [address], [place] [address] 14 Mar, 2010 [facility] [address] [id number] [address] [place] [address], [place] [address] 14 Mar, 2010 [facility] [address] [id number] [address] [place] [address], [place] [address] Jan, [facility] [address] [id number] [address] [place] [address], [place] [address] 18 Aug, 2009 [facility] [address] [id number] [address] [place] [address], [place] [address] 31 May, 2009 [facility] [address] [id number] [address] [place] [address], [place] [address] 03 May, 2009 [facility] [address] [id number] [address] [place] [address], [place] [address] 16 May, 2009 [facility] [address] [id number] [address] [place] [address], [place] [address] 16 May, 2009 [facility] [address] [id number] [address] [place] [address], [place] [address] 02 May, 2009 [facility] [address] [id number] [address] [place] [address], [place] [address] Mar, [facility] [address] [id number] [address] [place] [address] 10 Jul, 2006 [facility] [address] [id number] [address] [place] [address], [place] [address] 14 May, 2006 [facility] [address] [id number] [address] [place] [address] 11 Mar, 2006 [facility] [address] [id number] [address] [place] [address] Sep, [facility] [address] [facility] [id number] [address] [place] [address] Jul, IMMUNIZATIONS No Known Immunizations SOCIAL HISTORY Never Assessed REASON FOR VISIT PLAN OF CARE VITAL SIGNS MEDICATIONS Unknown Medications RESULTS No Results PROCEDURES Procedure Date Ordered Result Body Site TB INTRADERMAL TEST Aug 04, 2014 INSTRUCTIONS MEDICATIONS ADMINISTERED No Known Medications MEDICAL (GENERAL) HISTORY Type Description Date Medical History Chlamydial infections Medical History Trichomoniasis Medical History Mood disorder Medical History Anxiety disorder Medical History Methamphetamine Abuse Medical History Marijuana Dependence Medical History Herpes simplex type 2 infection Medical History History of drug dependence/abuse Medical History Alcohol abuse Medical History 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 Medical History no hx of seizures Medical History contusion to face and right eye Surgical History Myringotomy with ventilating tube insert ion Surgical History Tonsillectomy Surgical History Adenoidectomy Surgical History stitches to face/forehead [id number] Hospitalization History Surgery
--- NOTE | 2019-10-27 09:46 | ED Cough/URI ---
General Stated Complaint: COUGH;SOA Source: patient History of Present Illness Date Seen by Provider: Oct 27, 2019 Time Seen by Provider: 09:20 Initial Comments PT ARRIVES VIA POV FROM HOME STATES SHE HAS BEEN SICK FOR THE LAST COUPLE OF DAYS C/O PRODUCTIVE COUGH WITH COLORED SPUTUM--DARK BROWN/YELLOW/GREEN C/O SHORTNESS OF BREATH--STATES SHE HAS CHRONIC BRONCHITIS AND HAS BEEN USING HER INHALER ALOT THE LAST 2 DAYS STATES HER CHEST HURTS TO BREATHE HAS HAD SUBJECTIVE FEVER/SWEATS/CHILLS NO SORE THROAT OR NASAL CONGESTION PT CONTINUES TO SMOKE 2 PPD PT HAS HISTORY OF EXTENSIVE DRUG USE, INCLUDING THC, METH, COCAINE--DENIES IV USE OR RECENT USE STATES [place] WAS DX WITH PNEUMONIA LAST WEEK AND IS ON ANTIBIOTICS, BUT STATES HE WAS NOT TESTED FOR COVID-19 PT HAS CONTINUED TO WORK AT [employer] 3 1/2 WEEKS AGO, NORMAL. NO CONTROL PCP: [facility] Allergies and Home Medications Allergies Coded Allergies: No Known Drug Allergies (Unverified , 08/22/18) Home Medications Azithromycin 500 Mg Tablet, 500 MG PO DAILY Prescribed by: CHAO PERDUE on 10/27/19 1329 Cefdinir 300 Mg Capsule, 300 MG PO BID Prescribed by: CHAO PERDUE on 10/27/19 1329 Guaifenesin/Dextromethorphan 1 Each Tbmp.12hr, 1 EACH PO BID Prescribed by: CHAO PERDUE on 10/27/19 1329 Patient Home Medication List Home Medication List Reviewed: Yes Review of Systems Review of Systems Constitutional: see HPI, chills, diaphoresis, dizziness, fever, malaise EENTM: no symptoms reported, eye pain; No nose congestion, No throat pain Respiratory: see HPI, cough, phlegm, short of breath, wheezing Cardiovascular: see HPI, chest pain; No edema, No palpitations, No syncope Gastrointestinal: no symptoms reported Genitourinary: no symptoms reported : No LMP: Oct 04, 2019 Musculoskeletal: no symptoms reported Skin: no symptoms reported Psychiatric/Neurological: No Symptoms Reported Hematologic/Lymphatic: No Symptoms Reported Immunological/Allergic: no symptoms reported Past Aogjgzy-Pagngn-Hczdpz Hx Past Med/Social Hx: Reviewed and Corrections made Patient Social History Alcohol Use: Occasionally Uses (HEAVY AT TIMES) Alcohol Beverage of Choice: Beer, Whiskey Recreational Drug Use: Yes (COCAINE, METH, THC, ECSTASY--DENIES IV USE) Drug of Choice: COCAINE, METH, THC, ECSTASY. DENIES IV USE Smoking Status: Current Everyday Smoker (2 PPD) Type Used: Cigarettes (2 PPD) 2nd Hand Smoke Exposure: Yes Recent Hopitalizations: No Immunizations Up To Date Tetanus Booster (TDap): Unknown PED Vaccines UTD: Yes Date of Influenza Vaccine: Mar 30, 2013 Seasonal Allergies Seasonal Allergies: No Past Medical History Surgeries: Yes (EGD) Adenoidectomy, Tonsillectomy Respiratory: Yes Chronic Bronchitis Cardiac: No Neurological: No Reproductive Disorders: No Female Reproductive Disorders: Menstrual Problems, Ovarian Cyst Sexually Transmitted Disease: Yes (Trichomonas and Chlamydia, history of bacterial vaginosis) HIV/AIDS: No Genitourinary: No Gastrointestinal: Yes (GASTRITIS) Musculoskeletal: No Endocrine: No HEENT: No Cancer: No Psychosocial: Yes (POLYSUBSTANCE ABUSE) Anxiety, Bipolar, Depression Integumentary: No Blood Disorders: No Adverse Reaction/Blood Tranf: No Family Medical History No Pertinent Family Hx Physical Exam Vital Signs - First Documented 10/27/19 09:19 Temp 37.1 Pulse 88 Resp 16 B/P (MAP) 122/75 (91) Pulse Ox 94 O2 Delivery Room Air Capillary Refill : Height: 5'9.00" Weight: 160lbs. oz. 72.746979qv; 25.00 BMI Method:Stated General Appearance: WD/WN, no apparent distress, other (DOES NOT APPEAR ILL OR TO BE IN ANY DISCOMFORT OR DISTRESS) HEENT: PERRL/EOMI, normal ENT inspection, TMs normal, pharynx normal Neck: non-tender, full range of motion, supple, normal inspection Respiratory: normal breath sounds, no respiratory distress, no accessory muscle use Cardiovascular: normal peripheral pulses, regular rate, rhythm, no edema, no JVD, no murmur Gastrointestinal: normal bowel sounds, non tender, soft Extremities: normal range of motion, non-tender, normal inspection, no pedal edema, no calf tenderness, normal capillary refill Neurologic/Psychiatric: clipper machine II-XII nml as tested, no motor/sensory deficits, alert, normal mood/affect, oriented x 3 Skin: normal color, warm/dry, tattoos/piercings (MULTIPLE TATTOOS) Focused Exam Lactate Level 10/27/19 10:00: Lactic Acid Level 0.81 Lactic Acid Level Laboratory Tests Test 10/27/19 10:00 Lactic Acid Level 0.81 MMOL/L (0.50-2.00) Procedures/Interventions Suture Size: 5-0 Progress/Results/Core Measures Suspected Sepsis SIRS Temperature: Pulse: Respiratory Rate: Laboratory Tests 10/27/19 10:00: White Blood Count 7.6 Blood Pressure / Mean: 10/27/19 10:00: Lactic Acid Level 0.81 Laboratory Tests 10/27/19 10:00: Creatinine 0.76, INR Comment 0.9, Platelet Count 296, Total Bilirubin 0.4 Results/Orders Lab Results Laboratory Tests Test 10/27/19 09:20 10/27/19 10:00 10/27/19 10:08 Range/Units Lab Scanned Report Referred Lab Report [id number] White Blood Count 7.6 4.3-11.0 10^3/uL Red Blood Count 4.68 4.35-5.85 10^6/uL Hemoglobin 14.6 11.5-16.0 G/DL Hematocrit 43 35-52 % Mean Corpuscular Volume 91 80-99 FL Mean Corpuscular Hemoglobin 31 25-34 PG Mean Corpuscular Hemoglobin Concent 34 32-36 G/DL Red Cell Distribution Width 12.9 10.0-14.5 % Platelet Count 296 130-400 10^3/uL Mean Platelet Volume 10.2 7.4-10.4 FL Neutrophils (%) (Auto) 59 42-75 % Lymphocytes (%) (Auto) 28 12-44 % Monocytes (%) (Auto) 9 0-12 % Eosinophils (%) (Auto) 4 0-10 % Basophils (%) (Auto) 1 0-10 % Neutrophils # (Auto) 4.5 1.8-7.8 X 10^3 Lymphocytes # (Auto) 2.1 1.0-4.0 X 10^3 Monocytes # (Auto) 0.6 0.0-1.0 X 10^3 Eosinophils # (Auto) 0.3 0.0-0.3 10^3/uL Basophils # (Auto) 0.0 0.0-0.1 10^3/uL Erythrocyte Sedimentation Rate 8 0-20 MM/HR Prothrombin Time 12.8 12.2-14.7 SEC INR Comment 0.9 0.8-1.4 Activated Partial Thromboplast Time 29 24-35 SEC D-Dimer 0.76 H 0.00-0.49 UG/ML Sodium Level 141 135-145 MMOL/L Potassium Level 3.7 3.6-5.0 MMOL/L Chloride Level 108 H 98-107 MMOL/L Carbon Dioxide Level 21 21-32 MMOL/L Anion Gap 12 5-14 MMOL/L Blood Urea Nitrogen 13 7-18 MG/DL Creatinine 0.76 0.60-1.30 MG/DL Estimat Glomerular Filtration Rate > 60 BUN/Creatinine Ratio 17 Glucose Level 80 70-105 MG/DL Lactic Acid Level 0.81 0.50-2.00 MMOL/L Calcium Level 9.3 8.5-10.1 MG/DL Corrected Calcium 9.1 8.5-10.1 MG/DL Magnesium Level 1.9 1.6-2.4 MG/DL Total Bilirubin 0.4 0.1-1.0 MG/DL Aspartate Amino Transf (AST/SGOT) 18 5-34 U/L Alanine Aminotransferase (ALT/SGPT) 13 0-55 U/L Alkaline Phosphatase 35 L 40-136 U/L Lactate Dehydrogenase 137 125-220 U/L Total Creatine Kinase 26 L 29-168 U/L Creatine Kinase MB 0.3 <6.6 NG/ML B-Type Natriuretic Peptide < 10.0 <100.0 PG/ML Total Protein 7.0 6.4-8.2 GM/DL Albumin 4.2 3.2-4.5 GM/DL Procalcitonin 0.03 <0.10 NG/ML Serum Test, Qualitative NEGATIVE NEGATIVE Serum Alcohol < 10 <10 MG/DL Adenovirus (PCR) Not Detected Not Detected Coronavirus (COVID-19)(PCR) Negative Negative Monoscreen NEGATIVE NEGATIVE Parainfluenza Type 1 (PCR) Not Detected Not Detected Parainfluenza Type 2 (PCR) Not Detected Not Detected Parainfluenza Type 3 (PCR) Not Detected Not Detected Group A Streptococcus Screen NEGATIVE NEGATIVE Urine Color YELLOW Urine Clarity CLEAR Urine pH 6.0 5-9 Urine Specific Aquilla 1.020 1.016-1.022 Urine Protein NEGATIVE NEGATIVE Urine Glucose (UA) NEGATIVE NEGATIVE Urine Ketones NEGATIVE NEGATIVE Urine Nitrite POSITIVE H NEGATIVE Urine Bilirubin NEGATIVE NEGATIVE Urine Urobilinogen 0.2 < = 1.0 MG/DL Urine Leukocyte Esterase NEGATIVE NEGATIVE Urine RBC (Auto) NEGATIVE NEGATIVE Urine RBC NONE /HPF Urine WBC 10-25 H /HPF Urine Squamous Epithelial Cells 5-10 /HPF Urine Crystals NONE /LPF Urine Bacteria MODERATE H /HPF Urine Casts NONE /LPF Urine Mucus NEGATIVE /LPF Urine Culture Indicated YES Urine Opiates Screen NEGATIVE NEGATIVE Urine Oxycodone Screen NEGATIVE NEGATIVE Urine Methadone Screen NEGATIVE NEGATIVE Urine Propoxyphene Screen NEGATIVE NEGATIVE Urine Barbiturates Screen NEGATIVE NEGATIVE Ur Tricyclic Antidepressants Screen NEGATIVE NEGATIVE Urine Phencyclidine Screen NEGATIVE NEGATIVE Urine Amphetamines Screen NEGATIVE NEGATIVE Urine Methamphetamines Screen NEGATIVE NEGATIVE Urine Benzodiazepines Screen POSITIVE H NEGATIVE Urine Cocaine Screen NEGATIVE NEGATIVE Urine Cannabinoids Screen NEGATIVE NEGATIVE Micro Results Microbiology 10/27/19 Blood Culture - Preliminary, Resulted No growth 10/27/19 Urine Culture - Final, Complete Escherichia coli 10/27/19 Throat Culture - Final, Complete No Beta Strep isolated 10/27/19 Influenza Types A,B Antigen (YOVANI) - Final, Complete 10/27/19 Gram Stain - Final, Complete 10/27/19 Sputum Culture - Final, Complete Usual upper respiratory gina 10/27/19 Blood Culture - Preliminary, Resulted No growth My Orders Orders - CHAO PERDUE DO Ekg Tracing (10/27/19 09:34) Monitor-Rhythm Ecg Trace Only (10/27/19 09:34) Chest 1 View, Ap/Pa Only (10/27/19 09:34) BNP (10/27/19 09:34) Cbc With Automated Diff (10/27/19 09:34) Comprehensive Metabolic Panel (10/27/19 09:34) Creatine Kinase (10/27/19 09:34) Creatine Kinase Mb (10/27/19 09:34) Drug Screen Stat (Urine) (10/27/19 09:34) Hcg,Qualitative Serum (10/27/19 09:34) Lactic Acid Analyzer (10/27/19 09:34) Magnesium (10/27/19 09:34) Monotest (10/27/19 09:34) Procalcitonin (Pct) (10/27/19 09:34) Rapid Strep A Screen (10/27/19 09:34) Ua Culture If Indicated (10/27/19 09:34) Blood Culture (10/27/19 09:34) Influenza A And B Antigens (10/27/19 09:34) Sputum Culture (10/27/19 09:34) Fibrin Degradation Products (10/27/19 09:34) Erythrocyte Sedimentation Rate (10/27/19 09:34) LDH (10/27/19 09:34) Coronavirus Sars-Cov-2 So 2019 (10/27/19 09:34) Adenovirus Detection By Pcr (10/27/19 09:34) Parainfluenza Virus 1,2,3 Pcr (10/27/19 09:34) Alcohol (10/27/19 09:34) Urine Culture (10/27/19 10:08) Ct Angio Chest W (10/27/19 11:05) Protime With Inr (10/27/19 11:05) Partial Thromboplastin Time (10/27/19 11:05) Iohexol Injection (Omnipaque 350 Mg/Ml 1 (10/27/19 11:30) Received Contrast (Hold Metformin- Contr (10/27/19 11:30) Ns (Ivpb) (Sodium Chloride 0.9% Ivpb Bag (10/27/19 11:30) Medications Given in ED Vital Signs/I&O 10/27/19 10/27/19 09:19 13:38 Temp 37.1 37.1 Pulse 88 73 Resp 16 16 B/P (MAP) 122/75 (91) 122/83 Pulse Ox 94 98 O2 Delivery Room Air Room Air Capillary Refill : Progress Note : Progress Note PT SEEN IN COVID UNIT--PPE WORN AT ALL TIMES UNEVENTFUL STAY--NO COUGH, NO FEVER, NO DYSPNEA OR ANY OTHER COMPLAINTS FOR ENTIRE STAY. ECG Initial ECG Impression Date: Oct 27, 2019 Initial ECG Impression Time: 10:14 Initial ECG Rate: 81 Initial ECG Rhythm: Normal Sinus Initial ECG Impression: Normal Diagnostic Imaging Comments CXR--NO ACUTE PROCESS, PER RADIOLOGIST REPORT AT 1011 CT ANGIOGRAM OF CHEST--PER RADIOLOGIST REPORT AT 1319 IMPRESSION: 1. No acute pulmonary embolus. 2. Hazy bibasilar opacities, which can be seen with atelectasis and/or inflammatory/infectious process. No focal consolidations or suspicious pulmonary nodules. No pleural effusions. Reviewed: Reviewed by Me Departure Impression Primary Impression: BRONCHITIS/PNEUMONITIS Additional Impressions: UTI (urinary tract infection) COVID P.U.I. Disposition: 01 HOME, SELF-CARE Condition: Stable Departure-Patient Inst. Referrals: [facility] (PCP/Family) Primary Care Physician Patient Instructions: Acute Bronchitis, Adult (DC), COVID19, Community-Acquired Pneumonia, Adult (DC), Coronavirus Disease 2019 (COVID-19) (DC), Urinary Tract Infection, Adult (DC) Add. Discharge Instructions: LOTS OF CLEAR LIQUIDS--WATER, BROTH, JELLO, GATORADE TYLENOL NEEDED FOR PAIN OR FEVER OVER 101 GET A THERMOMETER AND CHECK YOUR TEMPERATURE EVERY 4 HOURS FOLLOW UP WITH YOUR DR IN 4-5 DAYS IF NO BETTER, RETURN TO ER IF WORSE QUARANTINE YOURSELF AND ALL HOUSEHOLD MEMBERS FOR THE NEXT 2 WEEKS, OR UNTIL CLEARED BY THE HEALTH DEPT. Scripts Guaifenesin/Dextromethorphan (Mucinex Dm ER 1,200-60 mg Tab) 1 Each Tbmp.12hr 1 EACH PO BID, #20 EA Prov: CHAO PERDUE DO 10/27/19 Azithromycin (Zithromax) 500 Mg Tablet 500 MG PO DAILY for 5 Days, #5 TAB Prov: CHAO PERDUE DO 10/27/19 Cefdinir (Cefdinir) 300 Mg Capsule 300 MG PO BID, #20 CAP Prov: CHAO PERDUE DO 10/27/19 Work/School Note: Work Release Form Date Seen in the Emergency Department: Oct 27, 2019 Return to Work: November 10, 2019 CHAO PERDUE DO Oct 27, 2019 09:46
--- NOTE | 2019-10-27 10:06 | Diagnostic Imaging Report ---
INDICATION: Cough, shortness of air FINDINGS: The lungs are clear. There is no failure, effusion or pneumothorax. Cardiomediastinal and hilar contours normal. Lung volumes symmetric and normal. There has been no change from comparison study of August 2019. IMPRESSION: Stable normal chest. Dictated by: Dictated on workstation # [id number]
[2019-10-27 10:32] LABS: BILIRUBIN,URINE NEGATIVE (NEGATIVE); CLARITY,URINE CLEAR; COLOR,URINE YELLOW; GLUCOSE, URINE (UA) NEGATIVE (NEGATIVE); KETONES,URINE NEGATIVE (NEGATIVE); LEUKOCYTE ESTERASE ,URINE NEGATIVE (NEGATIVE); NITRITE,URINE POSITIVE (NEGATIVE); PROTEIN,URINE NEGATIVE (NEGATIVE)
[2019-10-27 10:36] LABS: BASOPHILS % (AUTO) 1 % (0-10); EOSINOPHILS # (AUTO) 0.3 10^3/uL (0.0-0.3); EOSINOPHILS % (AUTO) 4 % (0-10); HEMATOCRIT 43 % (35-52); HEMOGLOBIN 14.6 G/DL (11.5-16.0); LYMPHOCYTES # (AUTO) 2.1 X 10^3 (1.0-4.0); LYMPHOCYTES % (AUTO) 28 % (12-44); MEAN CORPUSCULAR HEMOGLOBIN 31 PG (25-34); MEAN CORPUSCULAR HGB CONC 34 G/DL (32-36); MEAN CORPUSCULAR VOLUME 91 FL (80-99); MEAN PLATELET VOLUME 10.2 FL (7.4-10.4); MONOCYTES # (AUTO) 0.6 X 10^3 (0.0-1.0); MONOCYTES % (AUTO) 9 % (0-12); NEUTROPHILS # (AUTO) 4.5 X 10^3 (1.8-7.8); NEUTROPHILS % (AUTO) 59 % (42-75); PLATELET COUNT 296 10^3/uL (130-400); RED CELL DISTRIBUTION WIDTH 12.9 % (10.0-14.5); WHITE BLOOD COUNT 7.6 10^3/uL (4.3-11.0)
[2019-10-27 10:48] LABS: BACTERIA,URINE MODERATE /HPF
[2019-10-27 10:50] LABS: AMPHETAMINE SCREEN, URINE NEGATIVE (NEGATIVE); BARBITURATE SCREEN URINE NEGATIVE (NEGATIVE); BENZODIAZEPINES SCREEN URINE POSITIVE (NEGATIVE); CANNABINOID SCREEN, URINE NEGATIVE (NEGATIVE); COCAINE SCREEN URINE NEGATIVE (NEGATIVE); METHADONE STAT NEGATIVE (NEGATIVE); METHAMPHETAMINE SCREEN URINE S NEGATIVE (NEGATIVE); OPIATE SCREEN URINE NEGATIVE (NEGATIVE); OXYCODONE STAT NEGATIVE (NEGATIVE); PROPOXYPHENE STAT NEGATIVE (NEGATIVE); TRICYCLIC ANTIDEPRESSANTS SCRE NEGATIVE (NEGATIVE)
[2019-10-27 10:54] LABS: ALANINE AMINOTRANSFERASE 13 U/L (0-55); ALBUMIN 4.2 GM/DL (3.2-4.5); ALKALINE PHOSPHATASE 35 U/L (40-136); BILIRUBIN,TOTAL 0.4 MG/DL (0.1-1.0); BUN/CREATININE RATIO 17; CALCIUM 9.3 MG/DL (8.5-10.1); CARBON DIOXIDE 21 MMOL/L (21-32); CHLORIDE 108 MMOL/L (98-107); CREATINE KINASE 26 U/L (29-168); CREATININE SERUM 0.76 MG/DL (0.60-1.30); GFR ESTIMATED > 60; GLUCOSE 80 MG/DL (70-105); MAGNESIUM 1.9 MG/DL (1.6-2.4); POTASSIUM 3.7 MMOL/L (3.6-5.0); SODIUM 141 MMOL/L (135-145)
[2019-10-27 10:56] LABS: ERYTHROCYTE SEDIMENTATION RATE 8 MM/HR (0-20)
[2019-10-27 11:13] LABS: CREATINE KINASE MB 0.3 NG/ML (<6.6)
[2019-10-27 11:15] LABS: INR 0.9 (0.8-1.4); PROTHROMBIN TIME PATIENT 12.8 SEC (12.2-14.7)
--- NOTE | 2019-10-27 11:25 | NUR ---
RESTING IN BED ET DENIES NEEDS NOTIFIED OF DR ORDERING A CT.
[2019-10-27] MEDS ORDERED: NS 100 ML (IVPB) BAG IV ONE (11:30)
[2019-10-27] MEDS ORDERED: HOLD METFORMIN - RECEIVED CONTRAST 20 ML VIAL IV SCH (11:30)
[2019-10-27] MEDS ORDERED: IOHEXOL 350 MG/ML 100 ML (OMNIPAQUE 350) VIAL IV ONE (11:30)
--- NOTE | 2019-10-27 13:06 | Diagnostic Imaging Report ---
PROCEDURE: CT angiography of the chest with contrast. TECHNIQUE: Multiple contiguous axial images were obtained through the chest after uneventful bolus administration of intravenous contrast. 3D reconstructed CTA MIP acquisitions were also performed. Auto Exposure Controls were utilized during the CT exam to meet ALARA standards for radiation dose reduction. INDICATION: Shortness of breath. Cough. COMPARISON: Chest radiograph performed earlier the same date. FINDINGS: This helical CT pulmonary angiogram is diagnostic to the subsegmental level branches of the pulmonary artery and demonstrates no pulmonary emboli. The heart and great vessels are unremarkable. There is no pericardial effusion. Mildly prominent axillary lymph nodes are present. No pathologically enlarged lymphadenopathy is seen in the chest. Hazy bibasilar opacities are present. No focal consolidative opacities. No suspicious pulmonary nodules. No central endobronchial obstructing lesions. No pleural effusion or pneumothorax. Osseous structures appear normal. Limited views of the upper abdomen are unremarkable. IMPRESSION: 1. No acute pulmonary embolus. 2. Hazy bibasilar opacities, which can be seen with atelectasis and/or inflammatory/infectious process. No focal consolidations or suspicious pulmonary nodules. No pleural effusions. Dictated by: Dictated on workstation # [id number]
[2019-10-27] MEDS ORDERED: CEFD300C3 PO (13:29)
[2019-10-27] MEDS ORDERED: AZIT500T PO (13:29)
[2019-10-27] MEDS ORDERED: GUAI1TBM19 PO (13:29)
[2019-10-27 13:38] VITALS: BP 122/83
[2019-10-28 12:35] LABS: PARAINFLU 1 PCR Not Detected (Not Detected); PARAINFLU 2 PCR Not Detected (Not Detected)
== END 2019-10-27 13:38 | disposition home or self-care (01) ==
LOC: EDUNIT# 09:19 → ER 09:20
DX: J20.9 Acute bronchitis, unspecified (principal); J42 Unspecified chronic bronchitis; J18.9 Pneumonia, unspecified organism; N39.0 Urinary tract infection, site not specified; F41.9 Anxiety disorder, unspecified; F31.9 Bipolar disorder, unspecified; Z20.828 Contact with and (suspected) exposure to other viral communicable diseases
CPT/HCPCS: 71045; 71275; 80053; 80306; 81000; 82550; 82553; 83605; 83615; 83735; 83880; 84145; 84703; 85025; 85379; 85610; 85652; 85730; 86308; 87040; 87070; 87077; 87088; 87186; 87205; 87430; 87631; 87798; 87804; 93005; 93041; 99284; G0480; U0002; 36415; 80320; 87635

== ENCOUNTER 2021-04-25 15:52 | Emergency (ER) | payer SELFPAY ==
[~2021-04-25] VITALS: Ht 175 cm; Wt 90.7 kg
[~2021-04-25 15:52] MED LIST changes: -ACYC400T PO; +ACYC400T21 PO; +AZIT500T PO; +CEFD300C3 PO; +GUAI1TBM19 PO; -SULF1TAB35 PO
--- NOTE | 2021-04-25 16:23 | ED Chest Pain ---
General Chief Complaint: Chest Wall Stated Complaint: SOB/STOMACH PAIN/COUGH Nursing Triage Note: PT PRESENTS TO ED WITH COMPLAINTS OF CHEST PAIN INCREASED WITH INSPIRATION AND COUGH X 3 DAYS. REPORTS SHE TESTED NEGATIVE FOR COVID 3 DAYS AGO. Source: patient Exam Limitations: no limitations (LOBITO MEDINA APRN) History of Present Illness Date Seen by Provider: Apr 25, 2021 Time Seen by Provider: 16:10 Initial Comments To ER with c/o sharp left side chest pain worsened by deep breathing. Has nonproductive cough. Had strep throat last week. No fevers. Does have soa. Negative covid 3 days ago. Timing/Duration: 2-3 days Severity/Quality: moderate, sharp Location: other Radiation: no radiation Activities at Onset: none ASA po REGIONAL MEDICAL DIRECTOR: No NTG SL REGIONAL MEDICAL DIRECTOR: No (LOBITO MEDINA APRN) Allergies and Home Medications Allergies Coded Allergies: No Known Drug Allergies (Unverified , 08/22/18) Patient Home Medication List Home Medication List Reviewed: Yes (LOBITO MEDINA APRN) Azithromycin (Zithromax) 500 Mg Tablet, 500 MG PO DAILY Prescribed by: CHAO PERDUE on 10/27/19 1329 Cefdinir (Cefdinir) 300 Mg Capsule, 300 MG PO BID Prescribed by: CHAO PERDUE on 10/27/19 1329 Guaifenesin/Dextromethorphan (Mucinex Dm ER 1,200-60 mg Tab) 1 Each Tbmp.12hr, 1 EACH PO BID Prescribed by: CHAO PERDUE on 10/27/19 1329 Review of Systems Review of Systems Constitutional: see HPI EENTM: No Symptoms Reported Respiratory: No Symptoms Reported Cardiovascular: No Symptoms Reported Gastrointestinal: See HPI, Abdominal Pain Musculoskeletal: no symptoms reported Skin: no symptoms reported Psychiatric/Neurological: No Symptoms Reported Endocrine: No Symptoms Reported Hematologic/Lymphatic: No Symptoms Reported (LOBITO MEDINA APRN) Past Eaxohcx-Xhviui-Iswgnf Hx Patient Social History Tobacco Use?: Yes Tobacco type used: Cigarettes Smoking Status: Current Everyday Smoker Smokeless Tobacco Frequency: Current Everyday User Substance use?: No Alcohol Use?: Yes Alcohol Frequency: Once in a while Pt feels they are or have been: No (LOBITO MEDINA APRN) Immunizations Up To Date Tetanus Booster (TDap): Unknown PED Vaccines UTD: Yes First/Initial COVID19 Vaccinat: NO Second COVID19 Vaccination Larry: NO (LOBITO MEDINA APRN) Seasonal Allergies Seasonal Allergies: No (LOBITO MEDINA APRN) Past Medical History Surgery/Hospitalization HX: SX: T/A Surgeries: Yes (EGD) Adenoidectomy, Tonsillectomy Respiratory: Yes Chronic Bronchitis Cardiac: No Neurological: No Reproductive Disorders: No Female Reproductive Disorders: Menstrual Problems, Ovarian Cyst Sexually Transmitted Disease: Yes (Trichomonas and Chlamydia, history of bacterial vaginosis) HIV/AIDS: No Genitourinary: No Gastrointestinal: Yes (GASTRITIS) Musculoskeletal: No Endocrine: No HEENT: No Cancer: No Psychosocial: Yes (POLYSUBSTANCE ABUSE) Anxiety, Bipolar, Depression Integumentary: No Blood Disorders: No Adverse Reaction/Blood Tranf: No (LOBITO MEDINA APRN) Family Medical History No Pertinent Family Hx (LOBITO MEDINA APRN) Physical Exam Vital Signs Vital Signs - First Documented 04/25/21 16:04 Temp 36.6 Pulse 91 Resp 18 B/P (MAP) 133/75 (94) Pulse Ox 97 (RAMANDEEP CRYSTAL MD) Vital Signs Capillary Refill : Less Than 3 Seconds (LOBITO MEDINA APRN) Height, Weight, BMI Height: 5'9.00" Weight: 160lbs. oz. [id number]; 29.00 BMI Method:Stated General Appearance: No Apparent Distress, WD/WN Respiratory: Lungs Clear, Normal Breath Sounds, No Accessory Muscle Use, No Respiratory Distress Cardiovascular: Regular Rate, Rhythm, Normal Peripheral Pulses Gastrointestinal: No Pulsatile Mass, Non Tender, Soft Extremity: Normal Capillary Refill, Normal Inspection Neurologic/Psychiatric: Alert, Oriented x3 Skin: Normal Color, Warm/Dry (LOBITO MEDINA APRN) Procedures/Interventions Suture Size: 5-0 (LOBITO MEDINA APRN) Progress/Results/Core Measures Results/Orders Lab Results Laboratory Tests Test 04/25/21 15:54 04/25/21 16:53 Range/Units SARS-CoV-2 RNA (RT-PCR) Not Detected Not Detecte White Blood Count 9.5 4.3-11.0 10^3/uL Red Blood Count 4.53 3.80-5.11 10^6/uL Hemoglobin 14.6 11.5-16.0 g/dL Hematocrit 43 35-52 % Mean Corpuscular Volume 95 80-99 fL Mean Corpuscular Hemoglobin 32 25-34 pg Mean Corpuscular Hemoglobin Concent 34 32-36 g/dL Red Cell Distribution Width 12.0 10.0-14.5 % Platelet Count 367 130-400 10^3/uL Mean Platelet Volume 9.5 9.0-12.2 fL Immature Granulocyte % (Auto) 0 % Neutrophils (%) (Auto) 62 42-75 % Lymphocytes (%) (Auto) 27 12-44 % Monocytes (%) (Auto) 7 0-12 % Eosinophils (%) (Auto) 3 0-10 % Basophils (%) (Auto) 1 0-10 % Neutrophils # (Auto) 5.9 1.8-7.8 10^3/uL Lymphocytes # (Auto) 2.6 1.0-4.0 10^3/uL Monocytes # (Auto) 0.7 0.0-1.0 10^3/uL Eosinophils # (Auto) 0.3 0.0-0.3 10^3/uL Basophils # (Auto) 0.1 0.0-0.1 10^3/uL Immature Granulocyte # (Auto) 0.0 0.0-0.1 10^3/uL D-Dimer 0.80 H 0.00-0.49 UG/ML Urine Color YELLOW Urine Clarity CLEAR Urine pH 6.5 5-9 Urine Specific [place] 1.015 L 1.016-1.022 Urine Protein NEGATIVE NEGATIVE Urine Glucose (UA) NEGATIVE NEGATIVE Urine Ketones NEGATIVE NEGATIVE Urine Nitrite NEGATIVE NEGATIVE Urine Bilirubin NEGATIVE NEGATIVE Urine Urobilinogen 1.0 < = 1.0 MG/DL Urine Leukocyte Esterase NEGATIVE NEGATIVE Urine RBC (Auto) NEGATIVE NEGATIVE Urine RBC NONE /HPF Urine WBC RARE /HPF Urine Squamous Epithelial Cells 5-10 /HPF Urine Crystals NONE /LPF Urine Bacteria TRACE /HPF Urine Casts NONE /LPF Urine Mucus NEGATIVE /LPF Urine Culture Indicated NO Sodium Level 139 135-145 MMOL/L Potassium Level 3.6 3.6-5.0 MMOL/L Chloride Level 106 98-107 MMOL/L Carbon Dioxide Level 24 21-32 MMOL/L Anion Gap 9 5-14 MMOL/L Blood Urea Nitrogen 8 7-18 MG/DL Creatinine 0.78 0.60-1.30 MG/DL Estimat Glomerular Filtration Rate 91 BUN/Creatinine Ratio 10 Glucose Level 97 70-105 MG/DL Calcium Level 9.5 8.5-10.1 MG/DL Corrected Calcium 9.2 8.5-10.1 MG/DL Total Bilirubin 0.4 0.1-1.0 MG/DL Aspartate Amino Transf (AST/SGOT) 11 5-34 U/L Alanine Aminotransferase (ALT/SGPT) 13 0-55 U/L Alkaline Phosphatase 47 40-136 U/L Total Protein 7.4 6.4-8.2 GM/DL Albumin 4.4 3.2-4.5 GM/DL (RAMANDEEP CRYSTAL MD) Vital Signs/I&O 04/25/21 04/25/21 16:04 18:43 Temp 36.6 Pulse 91 78 Resp 18 18 B/P (MAP) 133/75 (94) 120/83 Pulse Ox 97 98 (RAMANDEEP CRYSTAL MD) Blood Pressure Mean: 94 Departure Impression Primary Impression: Pleuritic chest pain Disposition: HOME, SELF-CARE Condition: Stable Departure-Patient Inst. Decision time for Depature: 16:23 (LOBITO MEDINA APRN) Referrals: [facility] [place]) Primary Care Physician Patient Instructions: Pleuritic Chest Pain ED Add. Discharge Instructions: All discharge instructions reviewed with patient and/or family. Voiced understanding. 1. Tylenol and ibuprofen for the chest pain. Return to ER for any concerns. Follow-up with your doctor next week. Work/School Note: Work Release Form Date Seen in the Emergency Department: Apr 25, 2021 Return to Work: Apr 26, 2021 ATTENDING PHYSICIAN NOTE: I was physically present as attending physician in the emergency department during the care of this patient, but I was not directly involved in the decision making or delivery of care for this patient. (RAMANDEEP CRYSTAL MD) LOBITO MEDINA APRN Apr 25, 2021 16:23 RAMANDEEP CRYSTAL MD Apr 27, 2021 12:12
[2021-04-25 17:06] LABS: BASOPHILS # (AUTO) 0.1 10^3/uL (0.0-0.1); BASOPHILS % (AUTO) 1 % (0-10); EOSINOPHILS # (AUTO) 0.3 10^3/uL (0.0-0.3); EOSINOPHILS % (AUTO) 3 % (0-10); HEMATOCRIT 43 % (35-52); HEMOGLOBIN 14.6 g/dL (11.5-16.0); LYMPHOCYTES # (AUTO) 2.6 10^3/uL (1.0-4.0); LYMPHOCYTES % (AUTO) 27 % (12-44); MEAN CORPUSCULAR HEMOGLOBIN 32 pg (25-34); MEAN CORPUSCULAR HGB CONC 34 g/dL (32-36); MEAN CORPUSCULAR VOLUME 95 fL (80-99); MEAN PLATELET VOLUME 9.5 fL (9.0-12.2); MONOCYTES # (AUTO) 0.7 10^3/uL (0.0-1.0); MONOCYTES % (AUTO) 7 % (0-12); NEUTROPHILS # (AUTO) 5.9 10^3/uL (1.8-7.8); NEUTROPHILS % (AUTO) 62 % (42-75); PLATELET COUNT 367 10^3/uL (130-400); WHITE BLOOD COUNT 9.5 10^3/uL (4.3-11.0)
[2021-04-25 17:07] LABS: BILIRUBIN,URINE NEGATIVE (NEGATIVE); CLARITY,URINE CLEAR; COLOR,URINE YELLOW; GLUCOSE, URINE (UA) NEGATIVE (NEGATIVE); KETONES,URINE NEGATIVE (NEGATIVE); LEUKOCYTE ESTERASE ,URINE NEGATIVE (NEGATIVE); NITRITE,URINE NEGATIVE (NEGATIVE); PH,URINE 6.5 (5-9); PROTEIN,URINE NEGATIVE (NEGATIVE)
--- NOTE | 2021-04-25 17:14 | Diagnostic Imaging Report ---
INDICATION: Chest pain. TIME OF EXAM: 05:07 p.m. COMPARISON: Correlation is made with prior study from 10/19/2019. The heart size is normal. The pulmonary vascularity is unremarkable. The lungs are clear. No infiltrate, effusion or pneumothorax is detected. IMPRESSION: No acute cardiopulmonary process is detected. Dictated by: Dictated on workstation # [id number]
[2021-04-25 17:18] LABS: ALBUMIN 4.4 GM/DL (3.2-4.5); POTASSIUM 3.6 MMOL/L (3.6-5.0)
[2021-04-25 17:19] LABS: CALCIUM 9.5 MG/DL (8.5-10.1)
[2021-04-25 17:21] LABS: TOTAL PROTEIN 7.4 GM/DL (6.4-8.2)
[2021-04-25 17:22] LABS: BILIRUBIN,TOTAL 0.4 MG/DL (0.1-1.0)
[2021-04-25 17:24] LABS: CREATININE SERUM 0.78 MG/DL (0.60-1.30)
[2021-04-25 17:25] LABS: BACTERIA,URINE TRACE /HPF; WBC,URINE RARE /HPF
--- NOTE | 2021-04-25 18:18 | Diagnostic Imaging Report ---
PROCEDURE: CT angiography of the chest with contrast. TECHNIQUE: Multiple contiguous axial images were obtained through the chest after uneventful bolus administration of intravenous contrast. 3D reconstructed CTA MIP acquisitions were also performed. Auto Exposure Controls were utilized during the CT exam to meet ALARA standards for radiation dose reduction. INDICATION: Chest pain increasing with inspiration and cough. Comparison is made with prior CT angiogram of the chest from 10/27/2019. Evaluation of the pulmonary arterial system is without evidence of thromboembolism. No filling defects are seen within central, lobar, or segmental branches. The thoracic aorta is normal in caliber. No dissection is seen. There is no pericardial or pleural fluid identified. No pulmonary infiltrates, nodules or masses are seen. Upper abdomen is unremarkable. IMPRESSION: Unremarkable CT angiogram of the chest. Dictated by: Dictated on workstation # [id number]
[2021-04-25 18:43] VITALS: BP 120/83
== END 2021-04-25 18:43 | disposition home or self-care (01) ==
LOC: EDUNIT# 15:52 → ER 15:53
DX: R07.81 Pleurodynia (principal); F17.210 Nicotine dependence, cigarettes, uncomplicated; Z20.822 Contact with and (suspected) exposure to COVID-19
CPT/HCPCS: 36415; 71045; 71275; 80053; 81000; 84703; 85025; 85379; 87636

== ENCOUNTER 2022-06-30 19:26 | Emergency (ER) | payer SELFPAY ==
[~2022-06-30] VITALS: Ht 172.7 cm; Wt 80.2 kg
--- NOTE | 2022-06-30 19:56 | ED General ---
General Chief Complaint: Cough/Cold/Flu Symptoms Stated Complaint: ABD PAIN/VOMITING/HEADACHE Source of Information: Patient History of Present Illness Date Seen by Provider: Jun 30, 2022 Time Seen by Provider: 19:49 Initial Comments PT ARRIVES VIA POV FROM HOME PT WITH MULTIPLE COMPLAINTS STATES SHE HAS BEEN Allergies and Home Medications Allergies Coded Allergies: No Known Drug Allergies (Unverified , 08/22/18) Patient Home Medication List Azithromycin (Zithromax) 500 Mg Tablet, 500 MG PO DAILY Prescribed by: CHAO PERDUE on 10/27/19 1329 Cefdinir (Cefdinir) 300 Mg Capsule, 300 MG PO BID Prescribed by: CHAO PERDUE on 10/27/19 1329 Guaifenesin/Dextromethorphan (Mucinex Dm ER 1,200-60 mg Tab) 1 Each Tbmp.12hr, 1 EACH PO BID Prescribed by: CHAO PERDUE on 10/27/19 1329 Past Ktnqzzb-Lgsjsg-Obkjgk Hx Immunizations Up To Date Tetanus Booster (TDap): Unknown PED Vaccines UTD: Yes First/Initial COVID19 Vaccinat: NO Second COVID19 Vaccination Larry: NO Seasonal Allergies Seasonal Allergies: No Past Medical History Surgery/Hospitalization HX: SX: T/A Surgeries: Yes (EGD) Adenoidectomy, Tonsillectomy Respiratory: Yes Chronic Bronchitis Cardiac: No Neurological: No Reproductive Disorders: No Female Reproductive Disorders: Menstrual Problems, Ovarian Cyst Sexually Transmitted Disease: Yes (Trichomonas and Chlamydia, history of bacterial vaginosis) HIV/AIDS: No Genitourinary: No Gastrointestinal: Yes (GASTRITIS) Musculoskeletal: No Endocrine: No HEENT: No Cancer: No Psychosocial: Yes (POLYSUBSTANCE ABUSE) Anxiety, Bipolar, Depression Integumentary: No Blood Disorders: No Adverse Reaction/Blood Tranf: No Family Medical History No Pertinent Family Hx Physical Exam Vital Signs Vital Signs - First Documented 06/30/22 19:44 Temp 36.2 Pulse 85 B/P (MAP) 125/79 (94) Pulse Ox 100 O2 Delivery Room Air Capillary Refill : Height, Weight, BMI Height: 5'9.00" Weight: 160lbs. oz. 72.767376am; 29.00 BMI Method:Stated Procedures/Interventions Suture Size: 5-0 Progress/Results/Core Measures Suspected Sepsis SIRS Temperature: Pulse: Respiratory Rate: Laboratory Tests 06/30/22 19:58: White Blood Count 7.2 Blood Pressure / Mean: Laboratory Tests 06/30/22 19:58: Creatinine 0.79, Platelet Count 266, Total Bilirubin 0.5 Results/Orders Lab Results Laboratory Tests Test 06/30/22 19:58 06/30/22 20:18 06/30/22 21:11 Range/Units White Blood Count 7.2 4.3-11.0 10^3/uL Red Blood Count 4.57 3.80-5.11 10^6/uL Hemoglobin 14.1 11.5-16.0 g/dL Hematocrit 40 35-52 % Mean Corpuscular Volume 88 80-99 fL Mean Corpuscular Hemoglobin 31 25-34 pg Mean Corpuscular Hemoglobin Concent 35 32-36 g/dL Red Cell Distribution Width 11.6 10.0-14.5 % Platelet Count 266 130-400 10^3/uL Mean Platelet Volume 9.7 9.0-12.2 fL Immature Granulocyte % (Auto) 0 % Neutrophils (%) (Auto) 68 42-75 % Lymphocytes (%) (Auto) 19 12-44 % Monocytes (%) (Auto) 11 0-12 % Eosinophils (%) (Auto) 1 0-10 % Basophils (%) (Auto) 1 0-10 % Neutrophils # (Auto) 4.9 1.8-7.8 10^3/uL Lymphocytes # (Auto) 1.4 1.0-4.0 10^3/uL Monocytes # (Auto) 0.8 0.0-1.0 10^3/uL Eosinophils # (Auto) 0.0 0.0-0.3 10^3/uL Basophils # (Auto) 0.0 0.0-0.1 10^3/uL Immature Granulocyte # (Auto) 0.0 0.0-0.1 10^3/uL Sodium Level 136 135-145 MMOL/L Potassium Level 3.1 L 3.6-5.0 MMOL/L Chloride Level 103 98-107 MMOL/L Carbon Dioxide Level 22 21-32 MMOL/L Anion Gap 11 5-14 MMOL/L Blood Urea Nitrogen 12 7-18 MG/DL Creatinine 0.79 0.60-1.30 MG/DL Estimat Glomerular Filtration Rate 106 BUN/Creatinine Ratio 15 Glucose Level 96 70-105 MG/DL Calcium Level 9.4 8.5-10.1 MG/DL Corrected Calcium 9.2 8.5-10.1 MG/DL Magnesium Level 1.9 1.6-2.4 MG/DL Total Bilirubin 0.5 0.1-1.0 MG/DL Aspartate Amino Transf (AST/SGOT) 10 5-34 U/L Alanine Aminotransferase (ALT/SGPT) 8 0-55 U/L Alkaline Phosphatase 50 40-136 U/L Total Protein 7.7 6.4-8.2 GM/DL Albumin 4.3 3.2-4.5 GM/DL Amylase Level 13 L 25-125 U/L Lipase 5 L 8-78 U/L Serum Test, Qualitative NEGATIVE NEGATIVE Serum Alcohol < 10 <10 MG/DL Monoscreen NEGATIVE NEGATIVE Influenza Type A (RT-PCR) Not Detected Not Detecte Influenza Type B (RT-PCR) Not Detected Not Detecte SARS-CoV-2 RNA (RT-PCR) Not Detected Not Detecte Group A Streptococcus Screen NEGATIVE NEGATIVE Urine Color YELLOW Urine Clarity CLEAR Urine pH 7.0 5-9 Urine Specific [place] 1.010 L 1.016-1.022 Urine Protein NEGATIVE NEGATIVE Urine Glucose (UA) NEGATIVE NEGATIVE Urine Ketones NEGATIVE NEGATIVE Urine Nitrite NEGATIVE NEGATIVE Urine Bilirubin NEGATIVE NEGATIVE Urine Urobilinogen 0.2 < = 1.0 MG/DL Urine Leukocyte Esterase NEGATIVE NEGATIVE Urine RBC (Auto) TRACE-I H NEGATIVE Urine RBC NONE /HPF Urine WBC NONE /HPF Urine Squamous Epithelial Cells 5-10 /HPF Urine Crystals PRESENT H /LPF Urine Amorphous Sediment FEW RAMONA PHOSPHATE H /LPF Urine Bacteria TRACE /HPF Urine Casts NONE /LPF Urine Mucus NEGATIVE /LPF Urine Culture Indicated NO Urine Opiates Screen NEGATIVE NEGATIVE Urine Oxycodone Screen NEGATIVE NEGATIVE Urine Methadone Screen NEGATIVE NEGATIVE Urine Propoxyphene Screen NEGATIVE NEGATIVE Urine Barbiturates Screen NEGATIVE NEGATIVE Ur Tricyclic Antidepressants Screen NEGATIVE NEGATIVE Urine Phencyclidine Screen NEGATIVE NEGATIVE Urine Amphetamines Screen NEGATIVE NEGATIVE Urine Methamphetamines Screen NEGATIVE NEGATIVE Urine Benzodiazepines Screen NEGATIVE NEGATIVE Urine Cocaine Screen NEGATIVE NEGATIVE Urine Cannabinoids Screen NEGATIVE NEGATIVE My Orders Orders - CHAO PERDUE DO Ed Iv/Invasive Line Start (06/30/22 19:54) Monitor-Rhythm Ecg Trace Only (06/30/22 19:54) Alcohol (06/30/22 19:54) Amylase (06/30/22 19:54) Cbc With Automated Diff (06/30/22 19:54) Comprehensive Metabolic Panel (06/30/22 19:54) Drug Screen Stat (Urine) (06/30/22 19:54) Hcg,Qualitative Serum (06/30/22 19:54) Lipase (06/30/22 19:54) Magnesium (06/30/22 19:54) Monotest (06/30/22 19:54) Rapid Strep A Screen (06/30/22 19:54) Ua Culture If Indicated (06/30/22 19:54) Ed Iv/Invasive Line Start (06/30/22 19:54) Lactated Ringers (Lr 1000 Ml Iv Solution (06/30/22 20:00) Ondansetron Injection (Zofran Injectio (06/30/22 20:00) Covid 19 Inhouse Test (06/30/22 19:54) Influenza A And B By Pcr (06/30/22 19:54) Isolation Central Supply Req (06/30/22 19:54) Ct Abdomen/Pelvis W (06/30/22 20:16) Iohexol Injection (Omnipaque 350 Mg/Ml 1 (06/30/22 20:30) Received Contrast (Hold Metformin- Contr (06/30/22 20:30) Ns (Ivpb) (Sodium Chloride 0.9% Ivpb Bag (06/30/22 20:30) Ketorolac Injection (Toradol Injection) (06/30/22 22:30) Ondansetron Injection (Zofran Injectio (06/30/22 22:30) Ciprofloxacin Tablet (Cipro Tablet) (06/30/22 22:30) Metronidazole Tablet (Flagyl Tablet) (06/30/22 22:30) Rx-Dicyclomine Capsule (Rx-Bentyl Capsul (06/30/22 22:22) Rx-Ondansetron Po (Rx-Zofran Po) (06/30/22 22:22) Medications Given in ED Current Medications Medications Dose Ordered Sig/Rachele Route Start Time Stop Time Status Last Admin Dose Admin Iohexol 100 ml ONCE ONCE IV 06/30/22 20:30 06/30/22 20:31 DC 06/30/22 20:33 80 ML Lactated Ringer's 1,000 ml @ 0 mls/hr Q0M ONCE IV 12/31/22 20:00 06/30/22 20:01 DC 06/30/22 20:17 1,000 MLS/HR Ondansetron HCl 4 mg ONCE ONCE IVP 06/30/22 20:00 06/30/22 20:01 DC 06/30/22 20:17 4 MG Sodium Chloride 100 ml ONCE ONCE IV 06/30/22 20:30 06/30/22 20:31 DC 06/30/22 20:33 80 ML Vital Signs/I&O 06/30/22 19:44 Temp 36.2 Pulse 85 B/P (MAP) 125/79 (94) Pulse Ox 100 O2 Delivery Room Air Capillary Refill : Diagnostic Imaging Comments CT ABDOMEN/PELVIS--PER RADIOLOGIST REPORT AT 2050 FINDINGS: Included portions of the lung bases are clear. CT ABDOMEN: There is moderate abnormal fairly diffuse colonic wall thickening extending from the cecum through to the splenic flexure. This is greater than expected to be artifact related to underdistention. Additionally, there is mild stranding of the pericolonic fat. A few mildly prominent pericecal lymph nodes are also noted. Normal appendix is identified. Small bowel loops are nondistended. The kidneys, adrenal glands, spleen and pancreas have an unremarkable CT appearance. There is no loculated fluid collection, free fluid or free air within the abdomen. Osseous structures show no acute abnormalities. CT PELVIS: Urinary bladder is unopacified. No calculi are seen within the urinary bladder. There is a small amount of free fluid within the pelvis. There is collapsing left ovarian follicle or cyst that measures 2.2 x 1.4 cm (image 156, series 2). There is no loculated fluid collection or free air. No abnormal adenopathy is seen. Osseous structures show no acute abnormality. IMPRESSION: 1. Moderate fairly long segment colonic wall thickening, as described above. Findings are concerning for infectious or inflammatory colitis. Correlation with colonoscopy is recommended when clinically appropriate. 2. Small amount of free fluid within the lower pelvis. This may be related to the above, although there also appears to be collapsing left ovarian follicle or cyst. 3. No loculated fluid collection, pneumatosis, pneumoperitoneum or portal venous gas. Reviewed: Reviewed by Me Departure Impression Primary Impression: Colitis Disposition: HOME, SELF-CARE Condition: Improved Departure-Patient Inst. Decision time for Depature: 22:20 Referrals: [facility] (PCP/Family) Primary Care Physician AUSTYN MIDDLETON DO Patient Instructions: Colitis (DC) Add. Discharge Instructions: CLEAR LIQUIDS--WATER, BROTH, JELLO, GATORADE NO FOOD FOR AT LEAST 24 HOURS, THEN IF YOU ARE FEELING BETTER, ADD BRATS DIET TO CLEAR LIQUIDS--BANANAS, RICE, APPLESAUCE, TOAST, SALTINES GET A THERMOMETER AND CHECK YOUR TEMPERATURE IF YOU THINK YOU HAVE FEVER. FOLLOW UP WITH DR. MIDDLETON IN A FEW DAYS FOR FURTHER CARE--CALL HIS OFFICE ON SATURDAY TO SCHEDULE AN APPOINTMENT RETURN TO ER IF YOUR SYMPTOMS WORSEN All discharge instructions reviewed with patient and/or family. Voiced understan gabriel. Scripts Pantoprazole Sodium (Protonix) 40 Mg Tablet. 40 MG PO DAILY, #15 TAB Prov: CHAO PERDUE DO 06/30/22 Ondansetron (Ondansetron Odt) 8 Mg Tab.rapdis 8 MG PO Q6H, #10 TAB Prov: CHAO PERDUE DO 06/30/22 Dicyclomine HCl (Dicyclomine HCl) 20 Mg Tablet 20 MG PO Q6H for Abdominal Pain, #20 TAB Prov: NETTEKENDRAA K DO 06/30/22 Metronidazole (Metronidazole) 500 Mg Tablet 500 MG PO QID, #28 TAB Prov: CHAO PERDUE DO 06/30/22 Ciprofloxacin HCl (Ciprofloxacin HCl) 500 Mg Tablet 500 MG PO BID, #14 TAB Prov: CHAO PERDUE DO 06/30/22 CHAO PERDUE DO Jun 30, 2022 19:56
[2022-06-30] MEDS ORDERED: ONDANSETRON 4 MG/2 ML (SDV) Z0FRAN IVP ONE ×2 (20:00→22:30)
[2022-06-30] MEDS ORDERED: LACTATED RINGERS 1,000 ML IV ONE (20:00)
[2022-06-30 20:06] LABS: BASOPHILS % (AUTO) 1 % (0-10); EOSINOPHILS % (AUTO) 1 % (0-10); HEMATOCRIT 40 % (35-52); HEMOGLOBIN 14.1 g/dL (11.5-16.0); LYMPHOCYTES # (AUTO) 1.4 10^3/uL (1.0-4.0); LYMPHOCYTES % (AUTO) 19 % (12-44); MEAN CORPUSCULAR HEMOGLOBIN 31 pg (25-34); MEAN CORPUSCULAR HGB CONC 35 g/dL (32-36); MEAN CORPUSCULAR VOLUME 88 fL (80-99); MEAN PLATELET VOLUME 9.7 fL (9.0-12.2); MONOCYTES # (AUTO) 0.8 10^3/uL (0.0-1.0); MONOCYTES % (AUTO) 11 % (0-12); NEUTROPHILS # (AUTO) 4.9 10^3/uL (1.8-7.8); NEUTROPHILS % (AUTO) 68 % (42-75); PLATELET COUNT 266 10^3/uL (130-400); WHITE BLOOD COUNT 7.2 10^3/uL (4.3-11.0)
[2022-06-30] MEDS ORDERED: HOLD METFORMIN - RECEIVED CONTRAST 20 ML VIAL IV SCH (20:30)
[2022-06-30] MEDS ORDERED: IOHEXOL 350 MG/ML 100 ML (OMNIPAQUE 350) VIAL IV ONE (20:30)
[2022-06-30] MEDS ORDERED: NS 100 ML (IVPB) BAG IV ONE (20:30)
[2022-06-30 20:32] LABS: ALANINE AMINOTRANSFERASE 8 U/L (0-55); ALBUMIN 4.3 GM/DL (3.2-4.5); ALKALINE PHOSPHATASE 50 U/L (40-136); AMYLASE 13 U/L (25-125); BILIRUBIN,TOTAL 0.5 MG/DL (0.1-1.0); BUN/CREATININE RATIO 15; CALCIUM 9.4 MG/DL (8.5-10.1); CARBON DIOXIDE 22 MMOL/L (21-32); CHLORIDE 103 MMOL/L (98-107); CREATININE SERUM 0.79 MG/DL (0.60-1.30); GFR ESTIMATED 106; GLUCOSE 96 MG/DL (70-105); LIPASE 5 U/L (8-78); MAGNESIUM 1.9 MG/DL (1.6-2.4); POTASSIUM 3.1 MMOL/L (3.6-5.0); SODIUM 136 MMOL/L (135-145); TOTAL PROTEIN 7.7 GM/DL (6.4-8.2)
--- NOTE | 2022-06-30 20:46 | Diagnostic Imaging Report ---
PROCEDURE: CT abdomen and pelvis with contrast. TECHNIQUE: Multiple contiguous axial images were obtained through the abdomen and pelvis after administration of intravenous contrast. Auto Exposure Controls were utilized during the CT exam to meet ALARA standards for radiation dose reduction. All CT scans use one or more of the following dose optimizing techniques: automated exposure control, MA and/or KvP adjustment based on patient size and exam type or iterative reconstruction. INDICATION: Abdominal pain. Headache. Nausea and vomiting. Diarrhea. Fever and chills. COMPARISON: 12/29/2017. FINDINGS: Included portions of the lung bases are clear. CT ABDOMEN: There is moderate abnormal fairly diffuse colonic wall thickening extending from the cecum through to the splenic flexure. This is greater than expected to be artifact related to underdistention. Additionally, there is mild stranding of the pericolonic fat. A few mildly prominent pericecal lymph nodes are also noted. Normal appendix is identified. Small bowel loops are nondistended. The kidneys, adrenal glands, spleen and pancreas have an unremarkable CT appearance. There is no loculated fluid collection, free fluid or free air within the abdomen. Osseous structures show no acute abnormalities. CT PELVIS: Urinary bladder is unopacified. No calculi are seen within the urinary bladder. There is a small amount of free fluid within the pelvis. There is collapsing left ovarian follicle or cyst that measures 2.2 x 1.4 cm (image 156, series 2). There is no loculated fluid collection or free air. No abnormal adenopathy is seen. Osseous structures show no acute abnormality. IMPRESSION: 1. Moderate fairly long segment colonic wall thickening, as described above. Findings are concerning for infectious or inflammatory colitis. Correlation with colonoscopy is recommended when clinically appropriate. 2. Small amount of free fluid within the lower pelvis. This may be related to the above, although there also appears to be collapsing left ovarian follicle or cyst. 3. No loculated fluid collection, pneumatosis, pneumoperitoneum or portal venous gas. Dictated by: Dictated on workstation # [id number]
[2022-06-30 21:23] LABS: BILIRUBIN,URINE NEGATIVE (NEGATIVE); CLARITY,URINE CLEAR; COLOR,URINE YELLOW; GLUCOSE, URINE (UA) NEGATIVE (NEGATIVE); KETONES,URINE NEGATIVE (NEGATIVE); LEUKOCYTE ESTERASE ,URINE NEGATIVE (NEGATIVE); NITRITE,URINE NEGATIVE (NEGATIVE); PROTEIN,URINE NEGATIVE (NEGATIVE)
[2022-06-30 21:49] LABS: AMORPHOUS SEDIMENT,UR FEW AMOR PHOSPHATE /LPF; BACTERIA,URINE TRACE /HPF
[2022-06-30 21:56] LABS: AMPHETAMINE SCREEN, URINE NEGATIVE (NEGATIVE); BARBITURATE SCREEN URINE NEGATIVE (NEGATIVE); BENZODIAZEPINES SCREEN URINE NEGATIVE (NEGATIVE); CANNABINOID SCREEN, URINE NEGATIVE (NEGATIVE); COCAINE SCREEN URINE NEGATIVE (NEGATIVE); METHADONE STAT NEGATIVE (NEGATIVE); OPIATE SCREEN URINE NEGATIVE (NEGATIVE); OXYCODONE STAT NEGATIVE (NEGATIVE); PROPOXYPHENE STAT NEGATIVE (NEGATIVE); TRICYCLIC ANTIDEPRESSANTS SCRE NEGATIVE (NEGATIVE)
[2022-06-30] MEDS ORDERED: RX-DICYCLOMINE 10 MG (BENTYL) CAP PPK#4 PO STA (22:22)
[2022-06-30] MEDS ORDERED: RX-ONDANSETRON 4 MG ODT (ZOFRAN) PPK #4 PO STA (22:22)
[2022-06-30] MEDS ORDERED: PANT40TA2 PO (22:29)
[2022-06-30] MEDS ORDERED: METR-145 PO (22:29)
[2022-06-30] MEDS ORDERED: DICY20TA PO (22:29)
[2022-06-30] MEDS ORDERED: CIPR500T5 PO (22:29)
[2022-06-30] MEDS ORDERED: ONDA8TAB13 PO (22:29)
[2022-06-30] MEDS ORDERED: metroNIDAZOLE 500 MG (FLAGYL) TAB PO ONE (22:30)
[2022-06-30] MEDS ORDERED: CIPROFLOXACIN 500 MG (CIPRO) TABLET PO SCH (22:30)
[2022-06-30] MEDS ORDERED: KETOROLAC 30 MG/ML VIAL IVP ONE (22:30)
[2022-06-30 22:55] VITALS: BP 114/86
[2022-06-30] MEDS ORDERED: DICYCLOMINE 10 MG (BENTYL) CAP ONE (23:01)
[2022-06-30] MEDS: DICYCLOMINE 10 MG (BENTYL) CAP PO SCH ×2 (23:06→23:07)
== END 2022-06-30 23:14 | disposition home or self-care (01) ==
LOC: EDUNIT# 19:26 → ER 19:29
DX: K52.9 Noninfective gastroenteritis and colitis, unspecified (principal); Z32.02 Encounter for pregnancy test, result negative; Z20.822 Contact with and (suspected) exposure to COVID-19; Z28.310 Unvaccinated for COVID-19
CPT/HCPCS: 74177; 80053; 80306; 81000; 82150; 83690; 83735; 84703 ×2; 85025; 86308; 87430; 87636; 93041; 96361; 96374; 96375; 96376; 99283; G0480; 36415; 80320